=== PATIENT | female | born 1960 | race Caucasian/White ===

== ENCOUNTER 2016-07-13 15:35 | Inpatient (IN) | payer MEDICARE ==
[2016-07-13] MEDS ORDERED: SODIUM CHLORIDE 0.9% 1,000 ML with MVI, ADULT NO.4 WITH VIT K 10 ML, THIAMINE 100 MG, F... IV ONE ×4 (16:40)
[2016-07-13] MEDS ORDERED: ONDANSETRON 4 MG/2 ML VIAL IVP STA (16:40)
[2016-07-13] MEDS ORDERED: LORazepam 2 MG/ML SYRINGE IV STA (16:42)
--- NOTE | 2016-07-13 16:46 | ED ---
Alcohol HPI - General Source: patient, EMS, RN notes reviewed Mode of arrival: EMS Limitations: no limitations <Cherri Ortega - Last Filed: 07/14/16 04:07> <Rangel Henriquez - Last Filed: 07/14/16 07:37> - General Chief Complaint: Alcohol Stated Complaint: ETOH Time Seen by Provider: 07/13/16 16:12 - History of Present Illness Initial Comments: Patient is a 55-year-old female since emergency room for evaluation of alcohol intoxication. Patient states she drank two 40's morning. Patient also states that she was diagnosed with a urinary tract infection on 06/18/16 and was on antibiotics for 10 days. Patient states the symptoms have still not subsided. Patient states she still having pain and burning while urinating with blood in urine. Patient denies any fevers or chills. Patient states she's having lower abdominal pain. Patient also states that she is feeling suicidal. Patient states that her family left her and wants nothing to do with her and that makes her very upset. Patient denies homicidal ideations. Patient denies visual or auditory hallucinations. (Cherri Ortega) - Related Data Home Medications Medication Instructions Recorded Confirmed Cyclobenzaprine [Flexeril] 10 mg PO BID 05/04/16 07/13/16 chlordiazePOXIDE HCl [Librium] 10 mg PO DIRECTED 05/04/16 07/13/16 Previous Rx's Medication Instructions Recorded Albuterol Inhaler [Ventolin Hfa 2 puff INHALATION RT-TID PRN #1 05/09/16 Inhaler] puff Meloxicam [Mobic] 15 mg PO DAILY #30 tablet 05/09/16 PARoxetine [Paxil] 40 mg PO DAILY #60 tab 05/09/16 Pantoprazole [Protonix] 40 mg PO AC-BRKFST #30 tablet. 05/09/16 cloNIDine 0.2 MG/24HR PATCH 1 patch TRANSDERM Q7D #4 patch 05/09/16 [Catapres-TTS] traZODone HCL 100 mg PO DAILY #30 tablet 05/09/16 Sulfamethox-Tmp 800-160Mg [Bactrim 1 tab PO Q12HR 7 Days 07/14/16 DS 800-160 mg] Allergies Allergy/AdvReac Type Severity Reaction Status Date / Time Iodinated Contrast Media - Allergy Unknown Verified 07/13/16 16:34 Oral and [Iodinated Contrast Media - IV Dye] levofloxacin [From Levaquin] Allergy Anaphylaxis Verified 07/13/16 16:34 pregabalin [From Lyrica] Allergy Nausea & Verified 07/13/16 16:34 Vomiting Review of Systems ROS Other: All systems not noted in ROS Statement are negative. <Cherri Ortega - Last Filed: 07/14/16 04:07> ROS Other: All systems not noted in ROS Statement are negative. <Rangel Henriquez - Last Filed: 07/14/16 07:37> ROS Statement: Those systems with pertinent positive or pertinent negative responses have been documented in the HPI. (Cherri Ortega) (Rangel Henriquez) Past Medical History Past Medical History: Heart Failure, COPD, CVA/TIA, Diabetes Mellitus, GERD/ Reflux, GI Bleed, Hypertension, Liver Disease, Myocardial Infarction (SD), Osteoarthritis (OA), Seizure Disorder, Sleep Apnea/CPAP/BIPAP Additional Past Medical History / Comment(s): Past alcohol withdrawal, chronic back pain, neuropathy of the lower extremities, R foot ulcer tx at wound center by Dr. Lubin-pt states is now healed, abddominal wound-tx at wound center, CVA in 2010 with numbness/tingling fingers and R leg weakness, concussion from fall 2010, balance issues, UTIs, SZ history from etoh-yrs ago,. Neuropathy bilat feet Last Myocardial Infarction Date:: 2014 History of Any Multi-Drug Resistant Organisms: None Reported, MRSA Date of last positivie culture/infection: 12/2015 MDRO Source:: right small toe Past Surgical History: Section, Hernia Repair Additional Past Surgical History / Comment(s): Ventral hernia repair x 4, 2 c- sections 1992, 1994, debridements of R foot and abdomin, colonoscopy, laparoscopy, seromas x 2 drained. Past Anesthesia/Blood Transfusion Reactions: No Reported Reaction Past Psychological History: Anxiety, Bipolar, Depression Additional Psychological History / Comment(s): Pt states she has been having suicidal thoughts and a plan that what ever she did would be "quick and easy." She states she currently resides with one other adult who is living with her temporarily. She uses a cane prn. She cannot drive. She uses the [facility] bus. Smoking Status: Current every day smoker Past Alcohol Use History: Abuse, Heavy Additional Past Alcohol Use History / Comment(s): Patient is a smoker of a half a pack to three-quarter pack of cigarettes per day for 13 years. Patient drinks alcohol 15 cans of beer per day for the last 13 years, recently added vodka. Last drank 04/17/16. She denies any street drug use. She denies any marijuana use. Past Drug Use History: None Reported - Past Family History Father Additional Family Medical History / Comment(s): Father is alive at age 75 with no major medical problems. Mother Family Medical History: Cancer Additional Family Medical History / Comment(s): Mother at age 65 from breast cancer/bone. Brother(s) Additional Family Medical History / Comment(s): Patient has 1 brother that from a motor vehicle accident involving alcohol. Patient has no sisters. Patient has 1 son 21 years old and one daughter 23 years old and she has no contact with her children. <Cherri Ortega - Last Filed: 07/14/16 04:07> General Exam Limitations: no limitations General appearance: alert, appears intoxicated Head exam: Present: atraumatic, normocephalic, normal inspection Eye exam: Present: normal appearance ENT exam: Present: normal exam Neck exam: Present: normal inspection, full ROM Respiratory exam: Present: wheezes Cardiovascular Exam: Present: regular rate, normal rhythm, normal heart sounds GI/Abdominal exam: Present: soft, normal bowel sounds. Absent: distended, tenderness, guarding, rebound, rigid Extremities exam: Present: normal inspection Back exam: Present: normal inspection Neurological exam: Present: alert Skin exam: Present: warm, dry <Cherri Ortega - Last Filed: 07/14/16 04:07> Medical Decision Making - Lab Data Result diagrams: 07/13/16 19:52 07/13/16 19:52 <Cherri Ortega - Last Filed: 07/14/16 04:07> - Lab Data Result diagrams: 07/13/16 19:52 07/13/16 19:52 <Rangel Henriquez - Last Filed: 07/14/16 07:37> - Medical Decision Making Patient is a 55-year-old female presents emergency room for a alcohol intoxication, suicidal ideations and dysuria. Patient medically cleared for psych when sober. Will begin treating patient for urinary tract infection. Case discussed and passed on to Dr. Henriquez at 4 AM. (Cherri Ortega) Patient seen by scattered but given her history of previous alcohol withdrawal seizures there requests that she be admitted under medicine for 1 day to ensure that no seizures develop. (Rangel Henriquez) - Lab Data Lab Results 07/13/16 07/13/16 07/14/16 Range/Units 19:52 19:52 01:42 WBC 5.3 (3.8-10.6) k/uL RBC 4.24 (3.80-5.40) m/uL Hgb 14.7 (11.4-16.0) gm/dL Hct 41.3 (34.0-46.0) % MCV 97.5 (80.0-100.0) fL MCH 34.7 (25.0-35.0) pg MCHC 35.5 (31.0-37.0) g/dL RDW 14.2 (11.5-15.5) % Plt Count 162 (150-450) k/uL Neutrophils % 32 % Lymphocytes % 62 % Monocytes % 2 % Eosinophils % 1 % Basophils % 1 % Neutrophils # 1.7 (1.3-7.7) k/uL Lymphocytes # 3.3 (1.0-4.8) k/uL Monocytes # 0.1 (0-1.0) k/uL Eosinophils # 0.1 (0-0.7) k/uL Basophils # 0.0 (0-0.2) k/uL Manual Slide Review Performed Reactive Lymphocytes Present RBC Morphology Normal Sodium 147 H (137-145) mmol/L Potassium 4.2 (3.5-5.1) mmol/L Chloride 111 H (98-107) mmol/L Carbon Dioxide 21 L (22-30) mmol/L Anion Gap 15 mmol/L BUN 16 (7-17) mg/dL Creatinine 0.70 (0.52-1.04) mg/dL Est GFR (MDRD) Af Amer >60 (>60 ml/min/1.73 sqM) Est GFR (MDRD) Non-Af >60 (>60 ml/min/1.73 sqM) Glucose 91 (74-99) mg/dL Calcium 8.5 (8.4-10.2) mg/dL Magnesium 2.1 (1.6-2.3) mg/dL Total Bilirubin 0.6 (0.2-1.3) mg/dL AST 56 H (14-36) U/L ALT 54 H (9-52) U/L Alkaline Phosphatase 59 (38-126) U/L Total Protein 6.9 (6.3-8.2) g/dL Albumin 4.2 (3.5-5.0) g/dL Urine Color Yellow Urine Appearance Turbid H (Clear) Urine pH 5.5 (5.0-8.0) Ur Specific [place] 1.013 (1.001-1.035) Urine Protein 1+ H (Negative) Urine Glucose (UA) Negative (Negative) Urine Ketones Negative (Negative) Urine Blood Small H (Negative) Urine Nitrate Positive H (Negative) Urine Bilirubin Negative (Negative) Urine Urobilinogen <2.0 (<2.0) mg/dL Ur Leukocyte Esterase Large H (Negative) Urine RBC 9 H (0-5) /hpf Urine WBC >182 H (0-5) /hpf Urine WBC Clumps Many H (None) /hpf Ur Squamous Epith Cells 2 (0-4) /hpf Urine Bacteria Many H (None) /hpf Urine Mucus Occasional H (None) /hpf Urine Opiates Screen Not Detected (NotDetected) Ur Oxycodone Screen Not Detected (NotDetected) Urine Methadone Screen Not Detected (NotDetected) Ur Propoxyphene Screen Not Detected (NotDetected) Ur Barbiturates Screen Not Detected (NotDetected) U Tricyclic Antidepress Not Detected (NotDetected) Ur Phencyclidine Scrn Not Detected (NotDetected) Ur Amphetamines Screen Not Detected (NotDetected) U Methamphetamines Scrn Not Detected (NotDetected) U Benzodiazepines Scrn Detected H (NotDetected) Urine Cocaine Screen Not Detected (NotDetected) U Marijuana (THC) Screen Not Detected (NotDetected) Serum Alcohol 295 mg/dL (Rangel Henriquez) Disposition <Cherri Ortega - Last Filed: 07/14/16 04:07> <Rangel Henriquez - Last Filed: 07/14/16 07:37> Clinical Impression: Urinary tract infection, Alcohol intoxication, Alcohol withdrawal, Suicidal ideation Disposition: ADMITTED IP TO THIS HOSP Condition: Poor Instructions: Alcohol Intoxication (ED), Urinary Tract Infection in Women (ED) Prescriptions: Sulfamethox-Tmp 800-160Mg [Bactrim DS 800-160 mg] 1 tab PO Q12HR 7 Days Referrals: Danielle Parra MD [Primary Care Provider] - 1-2 days
[2016-07-13 20:06] LABS: Basophils % (A) 1 %; CH 35.1; CHCM 36.1; Eosinophils # (A) 0.1 k/uL (0-0.7); Eosinophils % (A) 1 %; HCT 41.3 % (34.0-46.0); HDW 2.81; HGB 14.7 gm/dL (11.4-16.0); Luc # (Auto) 0.12; Luc % (Auto) 2; Lymphocytes # (A) 3.3 k/uL (1.0-4.8); Lymphocytes % (A) 62 %; MCH 34.7 pg (25.0-35.0); MCHC 35.5 g/dL (31.0-37.0); MCV 97.5 fL (80.0-100.0); Mean Platelet Volume 6.6; Monocytes # (A) 0.1 k/uL (0-1.0); Monocytes % (A) 2 %; Neutrophils # (A) 1.7 k/uL (1.3-7.7); Neutrophils % (A) 32 %; RBC 4.24 m/uL (3.80-5.40); RDW 14.2 % (11.5-15.5); WBC 5.3 k/uL (3.8-10.6)
[2016-07-13 20:19] LABS: ALT 54 U/L (9-52); AST 56 U/L (14-36); Alkaline Phosphatase 59 U/L (38-126); Anion Gap 15 mmol/L; Blood Urea Nitrogen 16 mg/dL (7-17); Calcium 8.5 mg/dL (8.4-10.2); Carbon Dioxide 21 mmol/L (22-30); Chloride 111 mmol/L (98-107); Glucose 91 mg/dL (74-99); Magnesium 2.1 mg/dL (1.6-2.3); Non-African American GFR(MDRD) >60 (>60 ml/min/1.73 sqM); Potassium 4.2 mmol/L (3.5-5.1); Sodium 147 mmol/L (137-145); Total Bilirubin 0.6 mg/dL (0.2-1.3); Total Protein 6.9 g/dL (6.3-8.2)
[2016-07-13 20:30] LABS: Alcohol 295 mg/dL
[2016-07-13 20:49] LABS: Manual Review Performed
[2016-07-13 20:50] LABS: RBC Morphology Normal
[2016-07-13 20:51] LABS: Reactive Lymphocytes Present
[2016-07-14 01:56] LABS: Appearance,Urine Turbid (Clear); Bacteria,Urine Many /hpf; Bilirubin,Urine Negative (Negative); Glucose,Urine (UA) Negative (Negative); Ketones,Urine Negative (Negative); Leukocyte Esterase,Urine Large (Negative); Mucus,Urine Occasional /hpf; Nitrite,Urine Positive (Negative); PH, Urine 5.5 (5.0-8.0); Particle Count 69608; Protein,Urine 1+ (Negative); RBC,Urine 9 /hpf (0-5); Specific Gravity,Urine 1.013 (1.001-1.035); Squamous Epithelial Cell,Urine 2 /hpf (0-4); UA Billing (MACRO vs. MICRO) MICRO; Urobilinogen,Urine <2.0 mg/dL (<2.0); WBC,Urine >182 /hpf (0-5)
[2016-07-14] MEDS ORDERED: SULFAMETHOX-TMP 800-160MG 1 EACH TAB PO STA (02:22)
[2016-07-14] MEDS ORDERED: LORazepam 2 MG/ML SYRINGE IV STA (06:09)
[2016-07-14] MEDS ORDERED: chlordiazePOXIDE 25 MG CAP PO STA (06:10)
[2016-07-14] MEDS ORDERED: NALOXONE 0.4 MG/ML 1 ML VIAL IV PRN (07:32)
[2016-07-14] MEDS ORDERED: THIAMINE 100 MG/ML 2 ML VIAL IM STA (07:32)
[2016-07-14] MEDS ORDERED: LORazepam 2 MG/ML SYRINGE IV PRN (07:32)
[2016-07-14] MEDS ORDERED: ALBUTEROL NEBULIZED 2.5 MG/3 ML INHALATION PRN (07:36)
[2016-07-14] MEDS ORDERED: cloNIDine 0.2 MG/24HR PATCH 1 PATCH PATCH TRANSDERM SCH (07:45)
[2016-07-14] MEDS: NICOTINE 21MG/24HR PATCH TRANSDERM SCH (09:09)
[2016-07-14] MEDS: SULFAMETHOX-TMP 800-160MG 1 EACH TAB PO SCH ×2 (09:09→20:28)
[2016-07-14] MEDS: HEPARIN SODIUM,PORCINE 5,000 UNIT/ML 1 ML VIAL SQ SCH ×3 (09:10→23:16)
[2016-07-14] MEDS: PANTOPRAZOLE 40 MG TABLET PO SCH (12:43)
[2016-07-14 13:20] LABS: ALT 58 U/L (9-52); AST 54 U/L (14-36); Alkaline Phosphatase 59 U/L (38-126); Anion Gap 10 mmol/L; Blood Urea Nitrogen 15 mg/dL (7-17); Calcium 8.8 mg/dL (8.4-10.2); Carbon Dioxide 24 mmol/L (22-30); Chloride 109 mmol/L (98-107); Glucose 98 mg/dL (74-99); Non-African American GFR(MDRD) >60 (>60 ml/min/1.73 sqM); Potassium 4.3 mmol/L (3.5-5.1); Sodium 143 mmol/L (137-145); Total Bilirubin 0.6 mg/dL (0.2-1.3); Total Protein 6.8 g/dL (6.3-8.2)
--- NOTE | 2016-07-14 13:35 | P.CON ---
Psychiatric Consult - . Consult:: 07/14/16 13:15 Psychiatric consultation notes. Anupama Krystle rodriguez 55-year-old white female was seen while she was on the medical floor admitted for management of alcohol intoxication and withdrawal. Patient was seen on psychiatric evaluation as she had reported feeling depressed. The ER notes indicate that she was diagnosed as having urinary tract infection on 06/18/2016 and was on antibiotics, and patient still complains of burning while urination as well as blood in urine. In the emergency department alcohol level was 295 and hence patient was admitted to medical floor. Psychiatric history. Patient has a very long psychiatric history and in 2016 and alone she was in inpatient treatment for about 7 times, all for the same complaints of intoxication and expressing suicidal ideation. However the prior years have not seen any admission at this facility. Would look into as to whether she had other hospitalization for the same problems elsewhere, when she is able to give me detailed information. Generally within few days of her and her discharge, though compliant with her medications she would resume drinking, reportedly for feeling depressed and missing her children were taken away from her many years ago by their father. Patient has no contact with her her grown children aged 23 and 21 and every time she is admitted is a history of feeling sad that she cannot see them not able to have any contact with them. In the past she had refused to be involved in any rehab programs either outpatient or inpatient and always expresses suicidal ideation with the result she would get admitted to the mental health unit. She initially reports compliance with her psychiatric medications. Her reported current medications are Mental status examination. Patient is an overweight white female confined to bed and was lying down with her eyes closed. No evidence of any psychomotor disturbance including any tremulousness indicative of alcohol withdrawal. Her attention and concentration could be aroused without too much difficulty but could not be sustained for any length of time as she went back to sleep. During the period of her wakeful state she indicated that after leaving the inpatient unit last time she had allowed to people to move in with her, and they are also heavy into alcohol which has not helped the patient any. Patient does not want to ask them to leave her house. Her speech is quite slow so also the thought process. Admits that she is depressed but was vague about any suicidality. On direct inquiry does not seem to be having any delusions or hallucinations at present. Her affect was flat but acknowledged feeling depressed. She was alert enough to recognize that she was in the hospital and recognized me. More of a detailed mental status examination could not be accomplished at this time due to her withdrawn state. Patient seems to have limited insight and judgment. Assessment. Patient has a mood disorder with heavy alcohol abuse and is known to have seizures during the withdrawal phase. Once she is out of the withdrawal phase patient may be considered for transfer to mental health unit, if needed for the management of depression. Since she usually refuses treatment for her alcoholism, and her tendency to resume alcohol abuse once she leaves the hospital there may be really limited benefit for her transfer to mental health unit. Thank you for the referral. 07/14/16 13:34
[2016-07-14] MEDS: LORazepam 2 MG/ML SYRINGE IV PRN ×5 (14:47→23:25)
[2016-07-14] MEDS: THIAMINE 100 MG TAB PO SCH (14:47)
[2016-07-14] MEDS ORDERED: cloNIDine HCL 0.1 MG TAB PO STA (15:58)
[2016-07-14] MEDS ORDERED: cloNIDine 0.3 MG/24HR PATCH 1 PATCH PATCH TRANSDERM SCH (16:00)
[2016-07-14] MEDS: amLODIPine 5 MG TAB PO SCH (16:17)
--- NOTE | 2016-07-14 21:26 | HP ---
DATE OF ADMISSION: 07/14/2016 PRINCIPLE DIAGNOSES: 1. Alcohol intoxication. 2. Suicide ideation. HISTORY OF PRESENT ILLNESS: This is a 55-year-old female patient who presented to the emergency department secondary to burning upon urination and suicide ideation. The patient was found to be severely intoxicated. She states she drank two 40 ounces beer in the morning. She states she is a daily drinker. She denies any other drug ingestion. She does state that she does feel suicidal and sitter has been placed at the bedside for suicide precautions. She is seen lying in bed. She is sleepy, but arousable. She does fall asleep often during my examination. She states she had a urinary tract infection and has been taking antibiotics for 10 days although I do question whether or not she actually has been taking them. She has been placed on oral antibiotic therapy and admitted to the hospital for further evaluation. Culture and susceptibility is in progress. She still is somewhat intoxicated, but she is hemodynamically stable. Psychiatry has been consulted. She may require transfer to the psychiatric unit once she is more awake and alert. REVIEW OF SYSTEMS: Patient denies seizures, syncope, or loss of consciousness. Denies diplopia vision and visual disturbances. Denies dysphagia. Denies shortness breath, cough or wheeze. Denies chest pain, angina, palpitations. Denies abdominal pain. States burning with urination. Denies nausea, vomiting, constipation, or diarrhea. Denies dysuria or urinary retention. Denies fever or chills. PAST MEDICAL HISTORY: COPD, TIA, diabetes. GI bleed, hypertension, liver disease myocardial infarction, osteoarthritis seizure disorder, sleep apnea, alcohol abuse, chronic lower back pain. Anxiety and bipolar depression. PAST SURGICAL HISTORY: Ventral hernia repair x4 with debridement, right foot ulcer debridement. Colonoscopy. SOCIAL HISTORY: The patient is a current every day smoker. She smokes approximately 20 cigarettes per day. States she is daily alcohol user of approximately two 40 ounces beers daily. She denies any illicit drug use. FAMILY HISTORY: Father is still living, no major medical problems. Mother from cancer at age 65, breast cancer. She has one brother that is from motor vehicle accident. The patient has no sisters. She has one son and one daughter that she has no contact with. Their medical status is unknown. ALLERGIES: CONTRAST DYE, LEVAQUIN AND LYRICA. HOME MEDICATIONS: 1. Trazodone 100 mg daily. 2. Librium 10 mg t.i.d. 3. Bactrim DS q.12 hours. 4. Paxil 30 mg daily. 5. Lopressor 25 mg b.i.d. PHYSICAL EXAMINATION: VITAL SIGNS: Temperature is 97.7, heart rate 74, respiratory rate 16, blood pressure 141/81. Pulse oximetry is 97% on room air. GENERAL: The patient is seen lying in bed in no acute distress. HEENT: Head is normocephalic. Atraumatic. Pupils equal, conjunctivae clear. NECK: Supple, no JVD. LUNGS: Clear to auscultation, diminished posteriorly at the bases. No wheeze, rales, rhonchi appreciated. HEART: Regular rate and rhythm with distant heart sounds. ABDOMEN: Obese, nontender, nondistended with deep mid abdominal scar. No evidence of infection. No open areas noted. Liver is not palpable. EXTREMITIES: No lower extremity edema is noted. NEURO: Patient is alert and oriented, sleepy, but arousable. No tremors noted. LABS: Sodium is 147, potassium 4.2, BUN is 16, creatinine 0.7. WBC count is 5.3, hemoglobin 14.7, platelet count is 162. Urinalysis shows turbid yellow urine with positive nitrates, large leukocytes and many bacteria. Urine toxicology screen is positive for benzodiazepines. IMPRESSION: 1. Alcohol intoxication, continue with ETOH protocol as needed for delirium tremens. The patient is an everyday alcohol abuser and may ( ) very quickly. Continue with multivitamin and vitamin D1. 2. Urinary tract infection. Continue with Bactrim DS p.o. b.i.d. we will await final culture results. Patient does have history of Methicillin-resistant Staph aureus and she is in isolation. 3. Hypertension. Continue with Catapres patch. 4. Tobacco abuse. Continue with nicotine patch. 5. Chronic obstructive pulmonary disease may have updraft treated treatments as needed. 6. Suicide ideation. The patient does not have a plan or source that she admits to. She states that she has attempted suicide in the past and has had admissions to psychiatric unit. Will consult psychiatry for an evaluation and possible need for inpatient treatment. 7. Gastrointestinal prophylaxis with Protonix. 8. Deep venous thrombosis prophylaxis with subcutaneous heparin. I performed a history and physical examination of this patient and discussed the same with the dictator. I agree with the dictator's note. Any additional findings/opinions, etc. will be noted.
[2016-07-15] MEDS: LORazepam 2 MG/ML SYRINGE IV PRN (06:02)
[2016-07-15] MEDS: amLODIPine 5 MG TAB PO SCH (09:33)
[2016-07-15] MEDS: SULFAMETHOX-TMP 800-160MG 1 EACH TAB PO SCH (09:33)
[2016-07-15] MEDS: HEPARIN SODIUM,PORCINE 5,000 UNIT/ML 1 ML VIAL SQ SCH ×2 (09:33→15:33)
[2016-07-15] MEDS: PANTOPRAZOLE 40 MG TABLET PO SCH (09:34)
[2016-07-15] MEDS: NICOTINE 21MG/24HR PATCH TRANSDERM SCH (09:34)
[2016-07-15 09:45] LABS: Basophils % (A) 0 %; CHCM 35.9; Eosinophils % (A) 2 %; HCT 37.5 % (34.0-46.0); Luc # (Auto) 0.03; Luc % (Auto) 1; Lymphocytes # (A) 1.3 k/uL (1.0-4.8); Lymphocytes % (A) 55 %; MCH 34.1 pg (25.0-35.0); MCHC 34.8 g/dL (31.0-37.0); MCV 97.9 fL (80.0-100.0); Mean Platelet Volume 7.1; Monocytes # (A) 0.1 k/uL (0-1.0); Monocytes % (A) 4 %; Neutrophils # (A) 0.9 k/uL (1.3-7.7); Neutrophils % (A) 38 %; RBC 3.83 m/uL (3.80-5.40); RDW 13.9 % (11.5-15.5); WBC 2.4 k/uL (3.8-10.6); WBC (Perox) 2.46
[2016-07-15 09:48] LABS: Anion Gap 9 mmol/L; Blood Urea Nitrogen 7 mg/dL (7-17); Calcium 8.8 mg/dL (8.4-10.2); Carbon Dioxide 25 mmol/L (22-30); Chloride 106 mmol/L (98-107); Glucose 113 mg/dL (74-99); Non-African American GFR(MDRD) >60 (>60 ml/min/1.73 sqM); Potassium 3.7 mmol/L (3.5-5.1); Sodium 140 mmol/L (137-145)
[2016-07-15] MEDS: THIAMINE 100 MG TAB PO SCH (12:33)
--- NOTE | 2016-07-15 15:24 | P.DS ---
Providers Date of admission: 07/14/16 07:33 Expected date of discharge: 07/15/16 Attending physician: Colby Balbuena Primary care physician: Danielle Parra [facility] Course: This is a 55-year-old female. She is a patient of Dr. Parra with known history of chronic alcoholism alcohol dependency, COPD and has been treated in the past for chronic back pain, She has had multiple admissions to the mental health unit for depression and suicidal ideation due to alcohol abuse. Patient states that she started drinking alcohol and smoking 14 years ago when her children were taken away from her by her ex-. She has had multiple mental health admissions and states she started drinking heavily again 80 oz of beer every day along with a pint of vodka every day. She was also feeling suicidal and a sitter was placed at the bedside. She also gives history of urinary tract infection and has been on antibiotics for 10 days. She was admitted to the [facility] floor and stabilized. She was seen in consultation by psychiatry and patient is being considered for transfer to mental health unit. Patient has been started on Librium 10 mg 3 times daily. She is medically cleared for discharge to the mental health unit today in stable condition. Discharge diagnoses: 1. Alcohol intoxication with chronic alcoholism. Continue scheduled Librium 10 mg 3 times daily. 2. Chronic refractory Depression recurrent reports of current suicidal ideation. Patient has been seen by psychiatry with possible transfer to mental health unit. Continue sitter at the bedside. 3 Chronic tobacco use and COPD without any exacerbation continue albuterol. 4. Alcohol induced gastropathy. Continue Protonix 40 mg daily. Impression and plan of care have been directed as dictated by the signing physician. Ivette Morales nurse practitioner acting as scribe for signing physician. Patient Condition at Discharge: Stable Plan - Discharge Summary Discharge Medication List chlordiazePOXIDE HCl [Librium] 10 mg PO TID 05/04/16 [History] traZODone HCL 100 mg PO DAILY #30 tablet 05/09/16 [Rx] Metoprolol Tartrate [Lopressor] 25 mg PO BID 07/14/16 [History] PARoxetine HCL [Paxil] 30 mg PO DAILY 07/14/16 [History] Albuterol Nebulized [Ventolin Nebulized] 2.5 mg INHALATION RT-TID PRN #0 nebu [Rx] Nicotine 21Mg/24Hr Patch [Habitrol] 1 patch TRANSDERM DAILY patch 07/15/16 [Rx] Pantoprazole [Protonix] 40 mg PO AC-BRKFST tablet. 07/15/16 [Rx] Sulfamethox-Tmp 800-160Mg [Bactrim DS 800-160 mg] 1 tab PO Q12HR 3 Days [Rx] amLODIPine [Norvasc] 5 mg PO DAILY tab 07/15/16 [Rx] cloNIDine 0.3 MG/24HR PATCH [Catapres-TTS] 1 patch TRANSDERM Q7D patch [Rx] Follow up Appointment(s)/Referral(s): Danielle Parra MD [Primary Care Provider] - 1-2 days Patient Instructions/Handouts: Urinary Tract Infection in Women (ED), Abuse of Alcohol (DC) Activity/Diet/Wound Care/Special Instructions: No alcohol consuption. Discharge Disposition: TRANSFER TO PSYCH HOSP/UNIT
[2016-07-15 15:30] VITALS: BP 151/85; PULSE 88; RESP 20; TEMP 99
== END 2016-07-15 15:55 | DRG 897 ==
LOC: EC 15:35 → 4MS4W 07-14 07:33
PROVIDERS: ADMIT Internal Medicine; ATTEND Internal Medicine
DX: F10.229 Alcohol dependence with intoxication, unspecified (principal); R45.851 Suicidal ideations; N39.0 Urinary tract infection, site not specified; E11.40 Type 2 diabetes mellitus with diabetic neuropathy, unspecified; I50.9 Heart failure, unspecified; I10 Essential (primary) hypertension; E66.3 Overweight; F17.200 Nicotine dependence, unspecified, uncomplicated; G40.909 Epilepsy, unspecified, not intractable, without status epilepticus; G47.30 Sleep apnea, unspecified; I25.2 Old myocardial infarction; J44.9 Chronic obstructive pulmonary disease, unspecified; K21.9 Gastro-esophageal reflux disease without esophagitis; K31.9 Disease of stomach and duodenum, unspecified; M19.90 Unspecified osteoarthritis, unspecified site; F41.9 Anxiety disorder, unspecified; G89.29 Other chronic pain; K76.9 Liver disease, unspecified; M54.5 Low back pain; F32.9 Major depressive disorder, single episode, unspecified; Z86.14 Personal history of Methicillin resistant Staphylococcus aureus infection; Z79.899 Other long term (current) drug therapy; Z88.8 Allergy status to other drugs, medicaments and biological substances; Z88.1 Allergy status to other antibiotic agents; Z91.041 Radiographic dye allergy status; Z91.5 Personal history of self-harm; Y90.8 Blood alcohol level of 240 mg/100 ml or more
CPT/HCPCS: 36415; 80048; 80053; 80306; 80320; 81001; 82075; 83735; 85025; 96365; 96366; 96375; 96376; 99285

== ENCOUNTER 2017-02-12 22:35 | Inpatient (IN) | payer MEDICARE ==
[2017-02-12] MEDS ORDERED: LORazepam 1 MG TAB PO STA (22:57)
[2017-02-12] MEDS ORDERED: LORazepam 2 MG/ML SYRINGE IM STA (23:54)
--- NOTE | 2017-02-13 08:48 | ED ---
General Adult HPI - General Chief complaint: Psychiatric Symptoms Stated complaint: petition Time Seen by Provider: 02/12/17 22:44 Source: patient, RN notes reviewed Mode of arrival: wheelchair Limitations: no limitations - History of Present Illness Initial comments: Patient was seen last night by Dr. Brody however no was not done and will be completed by myself at this time. Patient is a pleasant 56-year-old female presenting to the emergency department with depression and suicidal thoughts. recently lost family member on the . Patient has been more depressed since that time. Patient did have a gun with thoughts of harming herself. No homicidal thoughts. No hallucinations. Patient does drink alcohol frequently and states she has had hallucinations in the past with withdrawals. No physical complaints other than mild edema which is chronic for her. Patient states she's been off her medications. No street drug use. - Related Data Home Medications Medication Instructions Recorded Confirmed Metoprolol Tartrate [Lopressor] 25 mg PO BID 07/14/16 02/13/17 PARoxetine HCL [Paxil] 30 mg PO DAILY 07/14/16 02/13/17 traZODone HCL 100 mg PO HS 02/13/17 02/13/17 Allergies Allergy/AdvReac Type Severity Reaction Status Date / Time Iodinated Contrast- Oral and Allergy Unknown Verified 02/12/17 22:40 IV Dye [Iodinated Contrast Media - IV Dye] levofloxacin [From Levaquin] Allergy Anaphylaxis Verified 02/12/17 22:40 pregabalin [From Lyrica] Allergy Nausea & Verified 02/12/17 22:40 Vomiting Review of Systems ROS Statement: Those systems with pertinent positive or pertinent negative responses have been documented in the HPI. ROS Other: All systems not noted in ROS Statement are negative. Constitutional: Denies: fever Eyes: Denies: eye pain ENT: Denies: ear pain Respiratory: Denies: cough, dyspnea Cardiovascular: Reports: edema (Chronic). Denies: chest pain Endocrine: Denies: fatigue Gastrointestinal: Denies: abdominal pain Genitourinary: Denies: dysuria Musculoskeletal: Denies: back pain Skin: Denies: rash Neurological: Denies: weakness Psychiatric: Reports: depression, suicidal thoughts Past Medical History Past Medical History: Heart Failure, COPD, CVA/TIA, Diabetes Mellitus, GERD/ Reflux, GI Bleed, Hypertension, Liver Disease, Myocardial Infarction ([place]), Osteoarthritis (OA), Seizure Disorder, Sleep Apnea/CPAP/BIPAP Additional Past Medical History / Comment(s): Past alcohol withdrawal, chronic back pain, neuropathy of the lower extremities, R foot ulcer tx at wound center by Dr. Lubin-pt states is now healed, abddominal wound-tx at wound center, CVA in 2010 with numbness/tingling fingers and R leg weakness, concussion from fall 2010, balance issues, UTIs, SZ history from etoh-yrs ago,. Neuropathy bilat feet Last Myocardial Infarction Date:: 2014 History of Any Multi-Drug Resistant Organisms: None Reported Date of last positivie culture/infection: None MDRO Source:: None Past Surgical History: Section, Hernia Repair Additional Past Surgical History / Comment(s): Ventral hernia repair x 4, 2 c- sections 1992, 1994, debridements of R foot and abdomin, colonoscopy, laparoscopy, seromas x 2 drained. Past Anesthesia/Blood Transfusion Reactions: No Reported Reaction Past Psychological History: Anxiety, Bipolar, Depression Smoking Status: Current every day smoker Past Alcohol Use History: Abuse, Heavy Past Drug Use History: None Reported - Past Family History Father Additional Family Medical History / Comment(s): Father is alive at age 75 with no major medical problems. Mother Family Medical History: Cancer Additional Family Medical History / Comment(s): Mother at age 65 from breast cancer/bone. Brother(s) Additional Family Medical History / Comment(s): Patient has 1 brother that from a motor vehicle accident involving alcohol. Patient has no sisters. Patient has 1 son 21 years old and one daughter 23 years old and she has no contact with her children. General Exam Limitations: no limitations General appearance: alert, in no apparent distress Head exam: Present: atraumatic Eye exam: Present: normal appearance, PERRL ENT exam: Present: normal oropharynx Neck exam: Present: normal inspection Respiratory exam: Present: normal lung sounds bilaterally Cardiovascular Exam: Present: regular rate, normal rhythm GI/Abdominal exam: Present: soft. Absent: tenderness Extremities exam: Present: normal inspection. Absent: pedal edema, calf tenderness Neurological exam: Present: alert Psychiatric exam: Present: normal affect, normal mood Skin exam: Present: normal color Course Vital Signs 02/12/17 02/13/17 02/13/17 22:37 04:00 06:34 Temperature 99.7 F H Pulse Rate 81 66 Respiratory 20 16 16 Rate Blood Pressure 147/78 116/59 O2 Sat by Pulse 94 L 95 Oximetry Medical Decision Making - Medical Decision Making Patient was seen by mental health services, who will admit. Disposition Clinical Impression: Depression Disposition: TRANSFER TO PSYCH HOSP/UNIT Referrals: Danielle Parra MD [Primary Care Provider] - 1-2 days
[2017-02-13] MEDS ORDERED: ONDANSETRON ODT 4 MG TAB PO STA (09:52)
[2017-02-13] MEDS ORDERED: MAGNESIUM HYDROXIDE 2,400 MG/10 ML CUP PO PRN (10:24)
[2017-02-13] MEDS ORDERED: ZIPRASIDONE 20 MG VIAL IM PRN (10:24)
[2017-02-13] MEDS ORDERED: LORazepam 1 MG TAB PO PRN (10:24)
[2017-02-13] MEDS ORDERED: MAG HYDROX/AL HYDROX/SIMETH 30 ML CUP PO PRN (10:24)
[2017-02-13] MEDS ORDERED: ALBUTEROL INHALER 60 PUFF/8 GM INHALER INHALATION PRN (11:22)
[2017-02-13] MEDS ORDERED: LORazepam 1 MG TAB PO STA (11:22)
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
[2017-02-13 11:39] VITALS: BMI 34.5
[2017-02-13] MEDS: PARoxetine 10 MG TAB PO SCH (11:39)
[2017-02-13] MEDS: METOPROLOL TARTRATE 25 MG TAB PO SCH ×2 (11:40→20:47)
[2017-02-13] MEDS: NICOTINE 14MG/24HR PATCH TRANSDERM SCH ×2 (11:42→11:46)
[2017-02-13] MEDS ORDERED: cloNIDine HCL 0.1 MG TAB PO STA (14:20)
[2017-02-13] MEDS: LORazepam 1 MG TAB PO PRN ×3 (14:50→20:53)
[2017-02-13] MEDS: traZODone HCL 100 MG TAB PO SCH (20:47)
[2017-02-14 01:48] LABS: Appearance,Urine Turbid (Clear); Bacteria,Urine Occasional /hpf; Bilirubin,Urine Negative (Negative); Glucose,Urine (UA) 2+ (Negative); Ketones,Urine Negative (Negative); Leukocyte Esterase,Urine Large (Negative); Mucus,Urine Rare /hpf; Nitrite,Urine Negative (Negative); PH, Urine 6.5 (5.0-8.0); Particle Count 89898; Protein,Urine 1+ (Negative); RBC,Urine 3 /hpf (0-5); Specific Gravity,Urine 1.014 (1.001-1.035); Squamous Epithelial Cell,Urine 92 /hpf (0-4); UA Billing (MACRO vs. MICRO) MICRO; Urobilinogen,Urine <2.0 mg/dL (<2.0); WBC,Urine 38 /hpf (0-5)
[2017-02-14] MEDS: LORazepam 1 MG TAB PO PRN ×4 (06:48→17:54)
[2017-02-14] MEDS: METOPROLOL TARTRATE 25 MG TAB PO SCH ×2 (06:48→21:07)
[2017-02-14] MEDS: NICOTINE 14MG/24HR PATCH TRANSDERM SCH (09:16)
[2017-02-14] MEDS: cloNIDine HCL 0.1 MG TAB PO SCH ×2 (09:16→21:07)
[2017-02-14] MEDS: PARoxetine 10 MG TAB PO SCH (09:16)
[2017-02-14 09:24] LABS: Basophils % (A) 0 %; CH 33.3; CHCM 36.2; Eosinophils # (A) 0.1 k/uL (0-0.7); Eosinophils % (A) 2 %; HCT 41.8 % (34.0-46.0); HGB 14.6 gm/dL (11.4-16.0); Luc # (Auto) 0.05; Luc % (Auto) 1; Lymphocytes # (A) 1.5 k/uL (1.0-4.8); Lymphocytes % (A) 35 %; MCH 32.2 pg (25.0-35.0); MCV 92.2 fL (80.0-100.0); Monocytes # (A) 0.2 k/uL (0-1.0); Monocytes % (A) 5 %; Neutrophils # (A) 2.4 k/uL (1.3-7.7); Neutrophils % (A) 57 %; RBC 4.54 m/uL (3.80-5.40); RDW 14.4 % (11.5-15.5); WBC 4.3 k/uL (3.8-10.6); WBC (Perox) 4.15
[2017-02-14 09:57] LABS: ALT 30 U/L (9-52); AST 24 U/L (14-36); Alkaline Phosphatase 75 U/L (38-126); Anion Gap 9 mmol/L; Bilirubin, Delta 0.3 mg/dL (0.0-0.2); Blood Urea Nitrogen 9 mg/dL (7-17); Calcium 8.8 mg/dL (8.4-10.2); Carbon Dioxide 27 mmol/L (22-30); Chloride 100 mmol/L (98-107); Glucose 187 mg/dL (74-99); Non-African American GFR(MDRD) >60 (>60 ml/min/1.73 sqM); Potassium 3.9 mmol/L (3.5-5.1); Sodium 136 mmol/L (137-145); Total Bilirubin 1.2 mg/dL (0.2-1.3); Total Protein 6.4 g/dL (6.3-8.2)
--- NOTE | 2017-02-14 10:47 | P.PN ---
Progress Note - Text Interval History: Patient is a 56-year-old female who was seen today in coverage for Dr. Shen and patient was in her room reporting that she is not feeling well, patient reported being able to eat some of her breakfast and did not report any nausea or vomiting. She continues to feel shaky and unsteady on her feet and is having sweats at times and was feeling nauseated yesterday and unable to eat. Patient reports that she is unable to state how she is doing otherwise as her physical symptoms are most problematic for her at this time. Patient has not been able to attend groups she states due to how she is feeling physically Mental Status: Appearance/Attitude: Patient is a hospital gown, lying in her bed and is feeling shaky and unsteady on her feet, she is cooperative in the interview continued in her room. Behavior: Patient exhibits no psychomotor agitation or retardation but is complaining of shaking and unsteady on her feet. Speech/Language: Patient's speech is spontaneous and of normal volume and rhythm and she is coherent. Thought Process: Patient is goal-directed and no evidence of circumstantial or tangential thought and no loose associations or flight of ideas. Thought Content: Patient is not reporting any auditory or visual hallucinations no delusions or paranoid ideation were elicited. Patient states she is just not feeling physically well, was able to eat a little bit of her breakfast this morning but stated yesterday she was too nauseated to eat. Patient states that she is feeling shaky and unsteady on her feet and so has remained in bed most of the time. Patient states that she has had the sweats and her sleep is intermittent. Suicidal/Homicidal Ideation: Patient denies any current suicidal or homicidal ideation Sensorium/Cognition: Patient was easily awakened and was alert and oriented to person, place and situation and her memory was not formally tested. Mood/Affect: Patient's mood remains depressed and her affect blunted. Insight/Judgement: Patient's insight and judgment are poor. Assessment: Patient continues with alcohol withdrawal, receiving Ativan as needed based on her CIWA score and her blood pressure was elevated this morning even though she is receiving metipranolol. Patient is reporting that she was able to eat something this morning with less nausea and remains in her bed due to feeling shaky and unsteady on her feet. Patient was not participating in groups or activities due to her physical complaints. Plan: Patient will continue on her current medication of Paxil 30 mg a day and trazodone 100 mg at bedtime to target her depression and sleep. She will remain on Ativan given on an as-needed basis based on her CIWA score. Patient was also ordered clonidine 0.1 mg twice a day as her blood pressure remained elevated this morning even though the patient is also on Lopressor. A urine culture was ordered to rule out urinary tract infection. patient continues to require hospitalization to stabilize her mood and continue to monitor her withdrawal from alcohol.
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
[2017-02-14] MEDS: traZODone HCL 100 MG TAB PO SCH (21:07)
[2017-02-15] MEDS: LORazepam 1 MG TAB PO PRN ×3 (01:37→14:02)
[2017-02-15] MEDS: NICOTINE 14MG/24HR PATCH TRANSDERM SCH (08:41)
[2017-02-15] MEDS: PARoxetine 10 MG TAB PO SCH (08:41)
[2017-02-15] MEDS: METOPROLOL TARTRATE 25 MG TAB PO SCH ×2 (08:41→20:19)
[2017-02-15] MEDS: cloNIDine HCL 0.1 MG TAB PO SCH ×2 (08:41→20:19)
--- NOTE | 2017-02-15 09:55 | P.PN ---
Progress Note - Text Interval History: Patient is a 56-year-old female was being seen in coverage for Dr. Shen, patient continues to require Ativan for alcohol withdrawal and she reports continuing to not physically feel well with nausea, decreased appetite and feeling unsteady on her feet. Patient states that she continues to feel shaky and states that she had some visual hallucinations last evening but reported none currently. Patient states that she is feeling better today than yesterday. Mental Status: Appearance/Attitude: Patient was seen in her room, she was lying in bed and dressed in a hospital gown and was not perspiring and was cooperative. Behavior: Patient did not display any psychomotor retardation but reports continuing to feel shaky and unsteady on her feet. Speech/Language: Speech was spontaneous and of normal volume and rhythm Thought Process: Patient was goal-directed but gave brief answers. Thought Content: Patient denied any auditory hallucinations stated she had some vivid visual hallucinations last evening but none currently and states that she is not having any delusional or paranoid ideation. Patient reports she continues to have nausea, not eating as well but she is not sweating as much she reported and states that she continues to feel unsteady on her feet. Suicidal/Homicidal Ideation: Patient denies any current suicidal or homicidal ideation Sensorium/Cognition: Patient is alert, oriented to person and place. Mood/Affect: Patient's mood remains anxious, depressed and her affect is appropriate to mood. Insight/Judgement: Patient's insight and judgment are poor. Assessment: Patient continues to require Ativan for alcohol withdrawal and continues to report nausea, visual hallucinations last evening, poor appetite and continuing to feel tremulous and unsteady on her feet. Patient has remained in bed and not attending groups due to not physically feeling well enough to do so. Patient's blood pressure is better controlled. Plan: Patient will continue on her current medications of Paxil and trazodone with no change in dosage at this time. Patient will continue to receive Ativan as necessary for alcohol withdrawal symptoms. Patient's blood pressure is better controlled with the addition of clonidine. Patient was encouraged as her physical condition improves to attend and participate in groups. Patient continues to require hospitalization due to her alcohol withdrawal and to stabilize her mood.
[2017-02-15] MEDS: traZODone HCL 100 MG TAB PO SCH (20:19)
[2017-02-16] MEDS: LORazepam 1 MG TAB PO PRN ×2 (01:30→12:40)
[2017-02-16] MEDS: PARoxetine 10 MG TAB PO SCH (08:35)
[2017-02-16] MEDS: METOPROLOL TARTRATE 25 MG TAB PO SCH ×2 (08:35→21:25)
[2017-02-16] MEDS: cloNIDine HCL 0.1 MG TAB PO SCH ×2 (08:35→21:26)
[2017-02-16] MEDS: ACETAMINOPHEN TAB 325 MG TAB PO PRN (17:06)
[2017-02-16] MEDS: traZODone HCL 100 MG TAB PO SCH (21:25)
[2017-02-17] MEDS: cloNIDine HCL 0.1 MG TAB PO SCH ×2 (06:51→21:57)
[2017-02-17] MEDS: METOPROLOL TARTRATE 25 MG TAB PO SCH ×2 (06:51→21:58)
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
[2017-02-17] MEDS: PARoxetine 10 MG TAB PO SCH (10:47)
[2017-02-17] MEDS: LORazepam 1 MG TAB PO PRN ×2 (10:50→20:09)
[2017-02-17] MEDS: ACETAMINOPHEN TAB 325 MG TAB PO PRN (10:57)
[2017-02-17] MEDS: traZODone HCL 100 MG TAB PO SCH (21:57)
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
[2017-02-18] MEDS: cloNIDine HCL 0.1 MG TAB PO SCH ×2 (09:02→22:03)
[2017-02-18] MEDS: METOPROLOL TARTRATE 25 MG TAB PO SCH ×2 (09:02→22:02)
[2017-02-18] MEDS: PARoxetine 10 MG TAB PO SCH (09:02)
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
[2017-02-18] MEDS: LORazepam 1 MG TAB PO PRN (20:14)
[2017-02-18] MEDS: traZODone HCL 100 MG TAB PO SCH (22:02)
[2017-02-19 06:49] VITALS: RESP 18; TEMP 97.9
[2017-02-19] MEDS: cloNIDine HCL 0.1 MG TAB PO SCH (09:28)
[2017-02-19] MEDS: METOPROLOL TARTRATE 25 MG TAB PO SCH (09:28)
[2017-02-19] MEDS: PARoxetine 10 MG TAB PO SCH (09:28)
[2017-02-19] MEDS: LORazepam 1 MG TAB PO PRN (09:30)
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
[2017-02-19 10:32] VITALS: BP 132/76; PULSE 67
== END 2017-02-19 14:52 | disposition left against medical advice (07) | DRG 894 ==
LOC: EC 22:35 → 3MHU 02-13 10:09
PROVIDERS: ADMIT Psychiatry & Neurology Addiction Medicine; ATTEND Psychiatry & Neurology Addiction Medicine
PROC: HZ2ZZZZ Detoxification Services for Substance Abuse Treatment (ICD-10-PCS; principal; 2017-02-13)
DX: F10.229 Alcohol dependence with intoxication, unspecified (principal); R45.851 Suicidal ideations; E11.42 Type 2 diabetes mellitus with diabetic polyneuropathy; F33.9 Major depressive disorder, recurrent, unspecified; I69.351 Hemiplegia and hemiparesis following cerebral infarction affecting right dominant side; F10.239 Alcohol dependence with withdrawal, unspecified; I10 Essential (primary) hypertension; F41.9 Anxiety disorder, unspecified; M54.9 Dorsalgia, unspecified; I69.398 Other sequelae of cerebral infarction; R20.8 Other disturbances of skin sensation; M19.90 Unspecified osteoarthritis, unspecified site; G47.30 Sleep apnea, unspecified; K31.9 Disease of stomach and duodenum, unspecified; E66.9 Obesity, unspecified; G47.00 Insomnia, unspecified; J44.9 Chronic obstructive pulmonary disease, unspecified; G89.29 Other chronic pain; K21.9 Gastro-esophageal reflux disease without esophagitis; I25.2 Old myocardial infarction; F17.200 Nicotine dependence, unspecified, uncomplicated; Z80.3 Family history of malignant neoplasm of breast; Z79.899 Other long term (current) drug therapy; Z88.8 Allergy status to other drugs, medicaments and biological substances; Z91.5 Personal history of self-harm; Z88.1 Allergy status to other antibiotic agents; Z63.5 Disruption of family by separation and divorce; Z63.79 Other stressful life events affecting family and household; Z71.41 Alcohol abuse counseling and surveillance of alcoholic; Z71.51 Drug abuse counseling and surveillance of drug abuser; Z53.21 Procedure and treatment not carried out due to patient leaving prior to being seen by health care provider; Z91.041 Radiographic dye allergy status; Z56.0 Unemployment, unspecified; Z63.8 Other specified problems related to primary support group; Z62.820 Parent-biological child conflict; Z86.79 Personal history of other diseases of the circulatory system; Z87.820 Personal history of traumatic brain injury; Z91.81 History of falling; Z87.440 Personal history of urinary (tract) infections; Z86.69 Personal history of other diseases of the nervous system and sense organs; Z87.19 Personal history of other diseases of the digestive system; Z86.19 Personal history of other infectious and parasitic diseases
CPT/HCPCS: 80053; 80306; 81001; 82075; 82248; 84443; 85025; 87086; 93005

== ENCOUNTER → 2017-09-07 | Outpatient (CLI) | payer MEDICARE ==
--- NOTE | 2017-09-09 10:56 | MM ---
Reason for exam: screening (asymptomatic). Last mammogram was performed 3 years and 7 months ago. History: Patient is postmenopausal and had first child at age 33. Family history of breast cancer in mother at age 55. Cyst aspiration of the left breast, 2011. Physical Findings: A clinical breast exam by your physician is recommended on an annual basis and results should be correlated with mammographic findings. MG 3D Screening Mammo W/Cad Bilateral CC and MLO view(s) were taken. Prior study comparison: January 25, 2014, bilateral MG screening mammo w CAD. There are scattered fibroglandular densities. Benign oil cyst anterior lower inner quadrant left breast. No significant changes when compared with prior studies. ASSESSMENT: Negative, BI-RAD 1 RECOMMENDATION: Routine screening mammogram of both breasts in 1 year.
== END | disposition home or self-care (01) ==
LOC: RADMAMWWP 10:12
PROVIDERS: ATTEND Family Medicine
DX: Z12.31 Encounter for screening mammogram for malignant neoplasm of breast (principal)
CPT/HCPCS: 77063; 77067

== ENCOUNTER 2017-09-11 20:07 | Emergency (ER) | payer MEDICARE ==
--- NOTE | 2017-09-11 21:26 | ED ---
General Adult HPI - General Source: patient, RN/MD, EMS, RN notes reviewed Mode of arrival: EMS Limitations: no limitations <Mera Dias - Last Filed: 09/11/17 21:19> <Angel Zaragoza - Last Filed: 09/12/17 06:19> <Angel Diaz - Last Filed: 09/12/17 08:51> - General Chief complaint: Back Pain/Injury Stated complaint: Back Pain Time Seen by Provider: 09/11/17 20:08 - History of Present Illness Initial comments: This is a 56-year-old female who presents to the emergency department with chief complaint of acute on chronic back pain. On presentation to the emergency department, patient is noted to be severely intoxicated and slurring her words. She is found to have a blood alcohol content of 0.282. Patient also admits to being suicidal. Patient states that she broke her back in 2017. She states that she drank alcohol this afternoon because it helps with the pain. She denies homicidal ideation. She states that she does talk to people who were not present that help "guide her." Denies visual hallucinations. Patient states that she has had 2 MIs in the past. Denies any chest pain or shortness of breath. No other complaints. (Mera Dias) - Related Data Previous Rx's Medication Instructions Recorded Albuterol Inhaler [Ventolin Hfa 2 puff INHALATION RT-Q6H PRN #1 02/19/17 Inhaler] Metoprolol Tartrate [Lopressor] 25 mg PO BID #60 02/19/17 PARoxetine HCL [Paxil] 30 mg PO DAILY #30 02/19/17 cloNIDine HCL [Catapres] 0.1 mg PO BID #60 tab 02/19/17 traZODone HCL [Desyrel] 100 mg PO HS #30 tab 02/19/17 Allergies Allergy/AdvReac Type Severity Reaction Status Date / Time Iodinated Contrast- Oral and Allergy Unknown Verified 09/11/17 20:42 IV Dye [Iodinated Contrast Media - IV Dye] levofloxacin [From Levaquin] Allergy Anaphylaxis Verified 09/11/17 20:42 pregabalin [From Lyrica] Allergy Nausea & Verified 09/11/17 20:42 Vomiting Review of Systems ROS Other: All systems not noted in ROS Statement are negative. <LarissaMera - Last Filed: 09/11/17 21:19> ROS Other: All systems not noted in ROS Statement are negative. <Roger Zaragozaophe - Last Filed: 09/12/17 06:19> ROS Other: All systems not noted in ROS Statement are negative. <AugustoaltaAngel Laura - Last Filed: 09/12/17 08:51> ROS Statement: Those systems with pertinent positive or pertinent negative responses have been documented in the HPI. Past Medical History Past Medical History: Heart Failure, COPD, CVA/TIA, Diabetes Mellitus, GERD/ Reflux, GI Bleed, Hypertension, Liver Disease, Myocardial Infarction (IL), Osteoarthritis (OA), Seizure Disorder, Sleep Apnea/CPAP/BIPAP Additional Past Medical History / Comment(s): Past alcohol withdrawal, chronic back pain, neuropathy of the lower extremities, R foot ulcer tx at wound center by Dr. Lubin-pt states is now healed, abddominal wound-tx at wound center, CVA in 2010 with numbness/tingling fingers and R leg weakness, concussion from fall 2010, balance issues, UTIs, SZ history from etoh-yrs ago,. Neuropathy bilat feet Last Myocardial Infarction Date:: 2014 History of Any Multi-Drug Resistant Organisms: None Reported Date of last positivie culture/infection: None MDRO Source:: None Past Surgical History: Section, Hernia Repair Additional Past Surgical History / Comment(s): Ventral hernia repair x 4, 2 c- sections 1992, 1994, debridements of R foot and abdomin, colonoscopy, laparoscopy, seromas x 2 drained. Past Anesthesia/Blood Transfusion Reactions: No Reported Reaction Past Psychological History: Anxiety, Bipolar, Depression Smoking Status: Current every day smoker Past Alcohol Use History: Daily, Heavy Past Drug Use History: None Reported - Past Family History Father Additional Family Medical History / Comment(s): Father is alive at age 75 with no major medical problems. Mother Family Medical History: Cancer Additional Family Medical History / Comment(s): Mother at age 65 from breast cancer/bone. Brother(s) Additional Family Medical History / Comment(s): Patient has 1 brother that from a motor vehicle accident involving alcohol. Patient has no sisters. Patient has 1 son 21 years old and one daughter 23 years old and she has no contact with her children. <Mera Dias - Last Filed: 09/11/17 21:19> General Exam Limitations: no limitations <Mera Dias - Last Filed: 09/11/17 21:19> <Angel Zaragoza - Last Filed: 09/12/17 06:19> <Angel Diaz - Last Filed: 09/12/17 08:51> - General Exam Comments Initial Comments: General: Awake and alert, well-developed; in no apparent distress. Unkempt and disheveled in appearance. HEENT: Head atraumatic, normocephalic. Pupils are equal, round and reactive to light. Extraocular movements intact. Oropharynx moist without erythema or exudate. Neck: Supple. Normal ROM. Cardiovascular: Regular rate and rhythm. No murmurs, rubs or gallops. Chest symmetrical. Respiratory: Lungs clear to auscultation bilaterally. No wheezes, rales or rhonchi. Normal respiratory effort with no use of accessory muscles. Musculoskeletal: Normal ROM, no tenderness bilateral upper and lower extremities. Skin: [place], warm and dry without rashes or lesions. Neurological: Alert and oriented x3. CN II-XII grossly intact. Speech is slurred and patient has difficulty forming complete sentences. (Mera Dias) Vital Signs 09/11/17 09/12/17 20:17 06:00 Temperature 98.7 F Pulse Rate 64 80 Respiratory 18 18 Rate Blood Pressure 113/55 105/51 O2 Sat by Pulse 97 96 Oximetry EKG Findings - EKG Comments: EKG Findings:: 21:07:28 normal sinus rhythm with left axis deviation. Low voltage QRS. Ventricular rate 73 bpm, AR interval 196, QRS duration 86, QT/QTc 412/453. No evidence for ST segment elevation or depression. No significant change from previous EKG 02/13/2017 <Mera Dias - Last Filed: 09/11/17 21:19> Medical Decision Making <Mera Dias - Last Filed: 09/11/17 21:19> <Angel Zaragoza - Last Filed: 09/12/17 06:19> <Angel Diaz - Last Filed: 03/03/18 08:51> - Medical Decision Making Dr. Diaz taking over the care of this patient at 7 AM (Angel Zaragoza) 56-year-old seen and evaluated by psychiatry, patient deemed medically clear to discharge home not homicidal or suicidal (Angel Diaz) - Lab Data Lab Results 09/12/17 09/12/17 Range/Units 00:54 00:54 Urine Color Light Yellow Urine Appearance Cloudy H (Clear) Urine pH 5.5 (5.0-8.0) Ur Specific [place] 1.003 (1.001-1.035) Urine Protein Negative (Negative) Urine Glucose (UA) Negative (Negative) Urine Ketones Negative (Negative) Urine Blood Negative (Negative) Urine Nitrite Negative (Negative) Urine Bilirubin Negative (Negative) Urine Urobilinogen <2.0 (<2.0) mg/dL Ur Leukocyte Esterase Trace H (Negative) Urine WBC 8 H (0-5) /hpf Ur Squamous Epith Cells 14 H (0-4) /hpf Urine Bacteria Rare H (None) /hpf Urine HCG, Qual Not Detected (Not Detectd) Urine Opiates Screen Detected H (NotDetected) Ur Oxycodone Screen Not Detected (NotDetected) Urine Methadone Screen Not Detected (NotDetected) Ur Propoxyphene Screen Not Detected (NotDetected) Ur Barbiturates Screen Not Detected (NotDetected) U Tricyclic Antidepress Not Detected (NotDetected) Ur Phencyclidine Scrn Not Detected (NotDetected) Ur Amphetamines Screen Not Detected (NotDetected) U Methamphetamines Scrn Not Detected (NotDetected) U Benzodiazepines Scrn Not Detected (NotDetected) Urine Cocaine Screen Not Detected (NotDetected) U Marijuana (THC) Screen Not Detected (NotDetected) Disposition <Mera Dias - Last Filed: 09/11/17 21:19> <Angel Zaragoza - Last Filed: 09/12/17 06:19> <Angel Diaz - Last Filed: 09/12/17 08:51> Clinical Impression: Alcohol intoxication Disposition: HOME SELF-CARE Condition: Good Instructions: Alcohol Intoxication (ED) Referrals: Juliet Black MD [Primary Care Provider] - 1-2 days
[2017-09-12 01:07] LABS: Appearance,Urine Cloudy (Clear); Bacteria,Urine Rare /hpf; Bilirubin,Urine Negative (Negative); Blood,Urine Negative (Negative); Color,Urine Light Yellow; Glucose,Urine (UA) Negative (Negative); Ketones,Urine Negative (Negative); Leukocyte Esterase,Urine Trace (Negative); PH, Urine 5.5 (5.0-8.0); Protein,Urine Negative (Negative); Specific Gravity,Urine 1.003 (1.001-1.035); Squamous Epithelial Cell,Urine 14 /hpf (0-4); Urobilinogen,Urine <2.0 mg/dL (<2.0); WBC,Urine 8 /hpf (0-5)
[2017-09-12 01:15] LABS: Amphetamine Screen,Urine Not Detected (NotDetected); Benzodiazepines Screen,Urine Not Detected (NotDetected); Cocaine Screen,Urine Not Detected (NotDetected); Methadone Screen, Urine Not Detected (NotDetected); Opiate Screen,Urine Detected (NotDetected); Phencyclidine Screen,Urine Not Detected (NotDetected); Tricyclic Antidepressant,Urine Not Detected (NotDetected); Urn Cannabinoid Scrn Not Detected (NotDetected)
[2017-09-12 01:16] LABS: Barbiturate Screen,Urine Not Detected (NotDetected); Oxycodone Screen, Urine Not Detected (NotDetected)
--- NOTE | 2017-09-12 10:25 | XR ---
EXAMINATION TYPE: XR chest 1V DATE OF EXAM: 09/12/2017 COMPARISON: 01/21/2016 INDICATION: Pain cough congestion history of prior heart attack TECHNIQUE: Single frontal view of the chest is obtained. FINDINGS: The heart size is normal. The pulmonary vasculature is normal. The lungs are clear. IMPRESSION: 1. No acute pulmonary process.
[2017-09-12 10:49] VITALS: BP 128/76; PULSE 86; RESP 16; TEMP 98.4
== END 2017-09-12 10:50 | disposition home or self-care (01) ==
LOC: EC 20:07
DX: F10.129 Alcohol abuse with intoxication, unspecified (principal); M54.9 Dorsalgia, unspecified; R45.851 Suicidal ideations; G47.30 Sleep apnea, unspecified; Z99.89 Dependence on other enabling machines and devices; F17.200 Nicotine dependence, unspecified, uncomplicated; Z91.041 Radiographic dye allergy status; Z88.1 Allergy status to other antibiotic agents; Z88.8 Allergy status to other drugs, medicaments and biological substances
CPT/HCPCS: 71045; 80306; 81001; 81025; 82075; 93005; 99284

== ENCOUNTER 2017-10-20 19:07 | Inpatient (IN) | payer MEDICARE ==
[2017-10-20] MEDS ORDERED: SODIUM CHLORIDE 0.9% 1,000 ML IV STA (19:31)
[2017-10-20] MEDS ORDERED: THIAMINE 100 MG/ML 2 ML VIAL IM STA (19:31)
[2017-10-20] MEDS ORDERED: ONDANSETRON 4 MG/2 ML VIAL IVP STA (19:32)
[2017-10-20 20:04] LABS: Appearance,Urine Clear (Clear); Basophils % (A) 1 %; Bilirubin,Urine Negative (Negative); Blood,Urine Negative (Negative); Color,Urine Light Yellow; Eosinophils # (A) 0.1 k/uL (0-0.7); Eosinophils % (A) 2 %; Glucose,Urine (UA) 1+ (Negative); HGB 14.1 gm/dL (11.4-16.0); Hyperchromasia Slight; Ketones,Urine Negative (Negative); Leukocyte Esterase,Urine Negative (Negative); Lymphocytes # (A) 3.5 k/uL (1.0-4.8); MCH 33.7 pg (25.0-35.0); MCHC 36.2 g/dL (31.0-37.0); Mean Platelet Volume 6.9; Monocytes # (A) 0.2 k/uL (0-1.0); Monocytes % (A) 3 %; Neutrophils # (A) 1.8 k/uL (1.3-7.7); Neutrophils % (A) 31 %; Nitrite,Urine Negative (Negative); PH, Urine 5.5 (5.0-8.0); Platelet Count 186 k/uL (150-450); Protein,Urine Negative (Negative); RDW 12.6 % (11.5-15.5); Specific Gravity,Urine 1.003 (1.001-1.035); Urobilinogen,Urine <2.0 mg/dL (<2.0); WBC 5.8 k/uL (3.8-10.6)
[2017-10-20 20:08] LABS: Lymphocytes % (A) 60 %
[2017-10-20 20:13] LABS: Amphetamine Screen,Urine Not Detected (NotDetected); Barbiturate Screen,Urine Not Detected (NotDetected); Benzodiazepines Screen,Urine Not Detected (NotDetected); Cocaine Screen,Urine Not Detected (NotDetected); Methadone Screen, Urine Not Detected (NotDetected); Opiate Screen,Urine Not Detected (NotDetected); Oxycodone Screen, Urine Not Detected (NotDetected); Phencyclidine Screen,Urine Not Detected (NotDetected); Tricyclic Antidepressant,Urine Not Detected (NotDetected); Urn Cannabinoid Scrn Not Detected (NotDetected)
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
[2017-10-20 20:24] LABS: Albumin 4.3 g/dL (3.5-5.0); Calcium 9.2 mg/dL (8.4-10.2); Magnesium 1.8 mg/dL (1.6-2.3); Potassium 4.3 mmol/L (3.5-5.1); Total Bilirubin 0.4 mg/dL (0.2-1.3); Total Protein 7.3 g/dL (6.3-8.2)
[2017-10-21] MEDS ORDERED: MAGNESIUM HYDROXIDE 2,400 MG/10 ML CUP PO PRN (09:14)
[2017-10-21] MEDS ORDERED: MAG HYDROX/AL HYDROX/SIMETH 30 ML CUP PO PRN (09:14)
[2017-10-21] MEDS: PARoxetine 10 MG TAB PO SCH (09:48)
[2017-10-21] MEDS: NICOTINE 21MG/24HR PATCH TRANSDERM SCH (09:48)
[2017-10-21] MEDS: cloNIDine HCL 0.1 MG TAB PO PRN (09:48)
[2017-10-21] MEDS: LORazepam 1 MG TAB PO PRN ×2 (09:48→13:13)
[2017-10-21] MEDS: LOSARTAN 50 MG TAB PO SCH (09:48)
[2017-10-21] MEDS ORDERED: ONDANSETRON 4 MG/2 ML VIAL IM PRN (09:50)
[2017-10-21] MEDS ORDERED: ONDANSETRON 4 MG TAB PO PRN (09:50)
[2017-10-21] MEDS: ACETAMINOPHEN TAB 325 MG TAB PO PRN (10:02)
[2017-10-21 10:15] VITALS: BMI 35.7
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
[2017-10-21] MEDS: THIAMINE 100 MG TAB PO SCH (11:44)
[2017-10-21] MEDS: DIAZEPAM 5 MG TAB PO SCH ×3 (11:45→21:42)
[2017-10-21] MEDS: FOLIC ACID 1 MG TAB PO SCH (13:11)
[2017-10-21] MEDS ORDERED: LORazepam 1 MG TAB PO STA (14:45)
--- NOTE | 2017-10-21 19:02 | P.MDCNMH ---
History of Present Illness H&P Date: 10/21/17 Chief Complaint: Medical management 57-year-old female with history of hypertension coronary artery disease. Patient presented fall call withdrawal. She admits to drinking heavily over the past 15 years reporting drinking 12 packs of strongest beers that she can find and a pint of from every day. However yesterday she decided to quit cold turkey in order to improve her lifestyle as she was worried of dying. She was afraid of going into withdrawals and decided come the hospital. She does report having history of hypertension currently taking losartan along with his heart history of coronary artery disease without having any stents in the past. She denies being on any cholesterol pills or aspirin. She otherwise denies any suicidal ideation, she admits to depression and that's when she is drinking heavily. However she is hoping that we can help her through this tough time. Currently she denies any physical complaints Review of Systems Constitutional: Patient denies fever, denies chills, denies night sweating, denies significant weight changes Eyes: Patient denies visual changes, denies eye pain ENT: Patient denies ear pain, denies rhinorrhea, denies sore throat Cardiovascular: Patient denies chest pain, denies exertional dyspnea, denies peripheral leg edema, denies orthopnea, denies paroxysmal nocturnal dyspnea Respiratory:Patient denies cough, denies wheezing, denies shortness of breath Gastrointestinal: Patient denies diarrhea, denies constipation, denies nausea , denies vomiting, denies abdominal pain Genitourinary: Patient denies dysuria, denies hematuria, denies changes in urinary habits, denies genital lesions Musculoskeletal: Patient denies muscle pain, denies joint pain Psychiatric: Patient denies changes in mood or memory, denies suicidal ideation, denies anxiety, reports depression Endocrine: Patient denies heat intolerance, denies cold intolerance, denies excessive thirst, denies polyuria Neurological: Patient denies focal neurologic deficits, denies weakness, denies numbness, denies tingling Hem/Lymphatic: Patient denies bleeding tendency, denies bruising, denies swollen lymph glands Allergic/Immun: Patient denies recent allergic reactions Skin: Patient denies rashes, denies pruritis, denies ulcers Past Medical History Past Medical History: Heart Failure, COPD, CVA/TIA, Diabetes Mellitus, GERD/ Reflux, GI Bleed, Hypertension, Liver Disease, Myocardial Infarction (MT), Osteoarthritis (OA), Seizure Disorder, Sleep Apnea/CPAP/BIPAP Additional Past Medical History / Comment(s): Past alcohol withdrawal, chronic back pain, neuropathy of the lower extremities, R foot ulcer tx at wound center by Dr. Lubin-pt states is now healed, abddominal wound-tx at wound center, CVA in 2010 with numbness/tingling fingers and R leg weakness, concussion from fall 2010, balance issues, UTIs, SZ history from etoh-yrs ago,. Neuropathy bilat feet Last Myocardial Infarction Date:: 2014 History of Any Multi-Drug Resistant Organisms: None Reported Date of last positivie culture/infection: None MDRO Source:: None Past Surgical History: Section, Hernia Repair Additional Past Surgical History / Comment(s): Ventral hernia repair x 4, 2 c- sections 1992, 1994, debridements of R foot and abdomin, colonoscopy, laparoscopy, seromas x 2 drained. Past Anesthesia/Blood Transfusion Reactions: No Reported Reaction Past Psychological History: Anxiety, Bipolar, Depression Smoking Status: Current every day smoker Past Alcohol Use History: Daily, Heavy Additional Past Alcohol Use History / Comment(s): 10/21/17: Consumes 1/5 of rum and case of beer daily. Past Drug Use History: None Reported - Past Family History Father Additional Family Medical History / Comment(s): Father is alive at age 75 with no major medical problems. Mother Family Medical History: Cancer Additional Family Medical History / Comment(s): Mother at age 65 from breast cancer/bone. Brother(s) Additional Family Medical History / Comment(s): Patient has 1 brother that from a motor vehicle accident involving alcohol. Patient has no sisters. Patient has 1 son 21 years old and one daughter 23 years old and she has no contact with her children. Medications and Allergies Home Medications Medication Instructions Recorded Confirmed Type Albuterol Inhaler [Ventolin Hfa 2 puff INHALATION RT-Q6H PRN #1 02/19/17 Rx Inhaler] PARoxetine HCL [Paxil] 30 mg PO DAILY #30 02/19/17 10/20/17 Rx traZODone HCL [Desyrel] 100 mg PO HS #30 tab 02/19/17 10/20/17 Rx Losartan Potassium 100 mg PO DAILY 10/20/17 10/20/17 History busPIRone HCL 15 mg PO BID 10/20/17 10/20/17 History Allergies Allergy/AdvReac Type Severity Reaction Status Date / Time Iodinated Contrast- Oral and Allergy Unknown Verified 10/20/17 19:57 IV Dye [Iodinated Contrast Media - IV Dye] levofloxacin [From Levaquin] Allergy Anaphylaxis Verified 10/20/17 19:57 pregabalin [From Lyrica] Allergy Nausea & Verified 10/20/17 19:57 Vomiting Physical Exam Vitals: Vital Signs Temp Pulse Pulse Resp BP BP Pulse Ox 10/21/17 17:48 87 144/72 10/21/17 14:34 97 18 185/86 10/21/17 13:10 82 20 195/84 10/21/17 12:29 22 10/21/17 11:45 96 20 172/89 10/21/17 09:59 98.9 F 110 H 22 189/92 94 L 10/21/17 09:28 99.4 F 93 16 165/84 98 10/21/17 06:30 98.5 F 109 H 18 144/70 98 10/21/17 03:38 18 10/21/17 02:30 18 10/21/17 00:38 16 10/20/17 23:10 18 10/20/17 21:46 18 10/20/17 19:21 98.2 F 91 18 115/56 100 Intake and Output 10/21/17 10/21/17 10/21/17 06:59 14:59 22:59 Other: Weight 103.532 kg Constitutional: No acute distress, conversant, pleasant Eyes: Anicteric sclerae, moist conjunctiva, no lid-lag Pupils equal round reactive to light ENMT: NC/AT Oropharynx clear, no erythema, exudates Neck: Supple, FROM, no masses, or JVD No carotid bruits No thyromegaly Lungs: Clear to auscultation Clear to percussion Normal respiratory effort, no accessory muscle use Cardiovascular: Heart regular in rate and rhythm, No murmurs, gallops, or rubs No peripheral edema Abdominal: Soft, scarring over the midline of the abdomen Nontender, no guarding, rebound or rigidity Abdomen moving with respiration Normoactive bowel sounds No hepatomegaly, No splenomegaly No palpable mass Positive abdominal wall hernia Skin: Normal temperature, tone, texture, turgor No induration No subcutaneous nodules No rash, lesions No ulcers Extremities: No digital cyanosis No clubbing Pedal pulses intact and symmetrical Radial pulses intact and symmetrical No calf tenderness Psychiatric: Alert and oriented to person, place and time Appropriate affect fair judgment Neuro Muscles Strength 5/5 in all 4 extremities Sensation to light touch grossly present throughout No focal sensory deficits Lymphatics: no palpable cervical or supraclavicular , or inguinal lymph nodes Cranial Nerve Examination - Cranial Nerves Cranial Nerve II- Optic: Intact Cranial Nerve III- Oculomotor: Intact Cranial Nerve IV- Trochlear: Intact Cranial Nerve V- Trigeminal: Intact Cranial Nerve - Abducens: Intact Cranial Nerve VII- Facial: Intact Cranial Nerve VIII- Auditory: Intact Cranial Nerve IX- Glossopharyngeal: Intact Cranial Nerve X- Vagus: Intact Cranial Nerve XI- Accessory: Intact Cranial Nerve XII- Hypoglossal: Intact Results CBC & Chem 7: 10/20/17 19:53 10/20/17 19:53 Labs: Abnormal Lab Results - Last 24 Hours (Table) 10/20/17 10/20/17 Range/Units 19:53 19:53 Carbon Dioxide 20 L (22-30) mmol/L Glucose 133 H (74-99) mg/dL AST 76 H (14-36) U/L ALT 65 H (9-52) U/L Urine Glucose (UA) 1+ H (Negative) Assessment and Plan Plan: 57-year-old female with significant past medical history for CAD, hypertension, hyperlipidemia. And diabetes mellitus. Presented voluntarily due to fear of alcohol withdrawals as she decided to quit cold turkey to improve her quality of life. She admits to heavy drinking over the past 15 years C2 depression. Currently she denies any suicidal ideation she is hoping that we can help her through the substance #Alcohol abuse, pending alcohol withdrawals Monitor for alcohol withdrawal symptoms, benzos when necessary Thiamine and folic acid Encourage by mouth intake Counseled to abstain from alcohol #History of CAD Start patient on aspirin #History of liver disease most likely due to alcoholic hepatitis Mildly elevated liver enzymes Follow-up outpatient on liver function test to consider starting statin, if liver function improves and stabilizes #Diabetes mellitus Insulin sliding scale Check A1c #Hypertension currently controlled Continue with losartan #DVT prophylaxis patient is ambulatory Thank you for allowing us to participate in the care of this patient. We will follow peripherally. Do not hesitate to contact us with questions. Someone can be reached from the [facility] hospitalist group at all hours of the day at [phone].
[2017-10-21 20:44] LABS: Glucose,Whole Blood 120 mg/dL (75-99)
[2017-10-21] MEDS: INSULIN ASPART 100 UNIT/ML 1 ML 10 ML VIAL SQ SCH (20:47)
[2017-10-21] MEDS: traZODone HCL 100 MG TAB PO SCH (21:42)
[2017-10-21] MEDS: ALBUTEROL INHALER 60 PUFF/8 GM INHALER INHALATION PRN (22:18)
[2017-10-22 06:23] LABS: Glucose,Whole Blood 118 mg/dL (75-99)
[2017-10-22] MEDS: INSULIN ASPART 100 UNIT/ML 1 ML 10 ML VIAL SQ SCH ×4 (07:42→21:06)
[2017-10-22] MEDS: DIAZEPAM 5 MG TAB PO SCH ×3 (08:01→21:07)
[2017-10-22] MEDS: PARoxetine 10 MG TAB PO SCH (08:01)
[2017-10-22] MEDS: LOSARTAN 50 MG TAB PO SCH (08:01)
[2017-10-22] MEDS: NICOTINE 21MG/24HR PATCH TRANSDERM SCH (08:36)
--- NOTE | 2017-10-22 09:04 | P.PN ---
Progress Note - Text Interval history: The patient is found in the hallway she follows me to an interview room. She reports that she is feeling better today. We have been monitoring her closely for alcohol withdrawal symptoms. She endorses some sweating. She is glad to report that she slept all night and states in fact she slept 12 hours. Her blood pressure is improved today. She reports no auditory or visual hallucinations and is relieved. She has been attending groups and she finds all supportive. She has no questions regarding medication other than to review the benzodiazepine medication. Mental status exam: The patient is an overweight female appearing her stated age. She is dressed in hospital attire. She has visible tattoos on her upper extremities. She is pleasant and cooperative. With outstretched hands she demonstrates a bilateral fine tremor. She maintains appropriate eye contact. She spontaneously engages in the conversation. She reports depressed mood with some feelings of anxiety. She feels safe in the hospital. She is endorsing no thoughts of actively wanting to harm others. She is reporting no auditory or visual hallucinations or specific delusions there is no observed evidence of psychosis this morning. Thought process can be circumstantial at times but she demonstrates no tangential thinking loose associations or flight of ideas. Insight and judgment limited. Plan: The patient will continue on her current psychotropic medication. We will continue to closely monitor for alcohol withdrawal symptoms. We will continue the Valium and as needed Ativan as written. Vital signs reviewed. She is encouraged to continue participating in the milieu. We will discuss her case further today during team meeting to evaluate any potential support she has as an outpatient. She requires continued psychiatric hospitalization.
[2017-10-22] MEDS: ALBUTEROL INHALER 60 PUFF/8 GM INHALER INHALATION PRN (09:40)
--- NOTE | 2017-10-22 09:55 | P.PN ---
Progress Note - Text Progress Note Date: 10/22/17 patient started on Aspirin and atorvastatin due to her history of CAD and CVA check lipid profile follow up liver enzymes in 3 days blood pressure not optimally controlled at this point will monitor for another 24 hours , pending clinical course for further decisions Please Do not hesitate to contact me with questions. Someone can be reached from the [facility] hospitalist group at all hours of the day at .
[2017-10-22 10:22] LABS: Cholesterol 198 mg/dL (<200); HDL Cholesterol 65 mg/dL (40-60); LDL Cholesterol,Calculated 89 mg/dL (0-99); Triglycerides 221 mg/dL (<150)
[2017-10-22] MEDS: FOLIC ACID 1 MG TAB PO SCH (11:05)
[2017-10-22] MEDS: cloNIDine HCL 0.1 MG TAB PO PRN (11:05)
[2017-10-22] MEDS: ASPIRIN 81 MG PO SCH (11:05)
[2017-10-22] MEDS: THIAMINE 100 MG TAB PO SCH (11:05)
[2017-10-22] MEDS: LORazepam 1 MG TAB PO PRN ×2 (11:05→17:29)
[2017-10-22 12:26] LABS: Glucose,Whole Blood 130 mg/dL (75-99)
[2017-10-22] MEDS: CYCLOBENZAPRINE 5 MG TAB PO PRN (12:32)
[2017-10-22 12:40] LABS: Hemoglobin A1C 5.7 % (4.0-6.0)
[2017-10-22] MEDS ORDERED: cloNIDine HCL 0.2 MG TAB PO STA (15:56)
[2017-10-22 17:09] LABS: Glucose,Whole Blood 125 mg/dL (75-99)
[2017-10-22] MEDS ORDERED: LORazepam 1 MG TAB PO STA (18:17)
[2017-10-22 21:02] LABS: Glucose,Whole Blood 148 mg/dL (75-99)
[2017-10-22] MEDS: traZODone HCL 100 MG TAB PO SCH (21:04)
[2017-10-22] MEDS: ATORVASTATIN 40 MG TAB PO SCH (21:04)
[2017-10-23 06:44] LABS: Glucose,Whole Blood 147 mg/dL (75-99)
[2017-10-23] MEDS: INSULIN ASPART 100 UNIT/ML 1 ML 10 ML VIAL SQ SCH ×4 (08:55→21:55)
[2017-10-23] MEDS: ASPIRIN 81 MG PO SCH (08:56)
[2017-10-23] MEDS: NICOTINE 21MG/24HR PATCH TRANSDERM SCH (08:56)
[2017-10-23] MEDS: DIAZEPAM 5 MG TAB PO SCH ×3 (08:56→21:53)
[2017-10-23] MEDS: LOSARTAN 50 MG TAB PO SCH (08:56)
[2017-10-23] MEDS: THIAMINE 100 MG TAB PO SCH (08:57)
[2017-10-23] MEDS: FOLIC ACID 1 MG TAB PO SCH (08:57)
[2017-10-23] MEDS: PARoxetine 10 MG TAB PO SCH (08:57)
--- NOTE | 2017-10-23 10:08 | P.PN ---
Progress Note - Text Interval history: The patient is found in her room she is lying in bed she is willing to speak this morning but doesn't feel she should get up and come to an interview room. She reports feeling dizzy she reports that she is diaphoretic. She indicates she did get up to eat breakfast this morning. She indicates that she slept well last night and staff reported she slept 7 hours. It appears her hygiene continues to suffer she reports not showering. She is being followed by internal medicine. Vital signs reviewed. There is fluctuation in her blood pressure again this could be due to alcohol withdrawal phenomenon. She did receive an Ativan last evening on top of her scheduled Valium. Mental status exam: The patient is an overweight female appearing her stated age. She is lying in bed she is dressed in hospital attire. She keeps her eyes closed but does provide some verbal responses to questions asked before she falls back asleep. The room has a foul odor indicating impaired hygiene. She reports some visual hallucinations of seeing people standing next to her. She demonstrates no verbal or physical aggressiveness. She demonstrates no tremulousness activity while lying in bed. She does traits no abnormal involuntary movements. Insight and judgment limited. Plan: The patient will continue on her current psychotropic medications. We will continue to monitor for any acute symptoms of alcohol withdrawal. Continue Valium is written with Ativan as needed for breakthrough. Blood pressure changes are likely due to alcohol withdrawal phenomenon. We will monitor her by mouth intake.
[2017-10-23 12:37] LABS: Glucose,Whole Blood 155 mg/dL (75-99)
[2017-10-23] MEDS: ALBUTEROL INHALER 60 PUFF/8 GM INHALER INHALATION PRN ×2 (13:44→21:00)
[2017-10-23 17:33] LABS: Glucose,Whole Blood 124 mg/dL (75-99)
[2017-10-23 21:38] LABS: Glucose,Whole Blood 161 mg/dL (75-99)
[2017-10-23] MEDS: traZODone HCL 100 MG TAB PO SCH (21:51)
[2017-10-23] MEDS: ATORVASTATIN 40 MG TAB PO SCH (21:51)
[2017-10-23] MEDS: cloNIDine HCL 0.1 MG TAB PO PRN (21:54)
[2017-10-24 06:40] LABS: Glucose,Whole Blood 134 mg/dL (75-99)
[2017-10-24] MEDS: INSULIN ASPART 100 UNIT/ML 1 ML 10 ML VIAL SQ SCH ×4 (08:12→21:04)
[2017-10-24] MEDS: PARoxetine 10 MG TAB PO SCH (09:15)
[2017-10-24] MEDS: ASPIRIN 81 MG PO SCH (09:15)
[2017-10-24] MEDS: LOSARTAN 50 MG TAB PO SCH (09:15)
[2017-10-24] MEDS: DIAZEPAM 5 MG TAB PO SCH ×3 (09:15→21:08)
[2017-10-24] MEDS: HYDROCHLOROTHIAZIDE 25 MG TAB PO SCH (10:27)
[2017-10-24 13:03] LABS: Glucose,Whole Blood 137 mg/dL (75-99)
[2017-10-24] MEDS: THIAMINE 100 MG TAB PO SCH (13:03)
[2017-10-24] MEDS: FOLIC ACID 1 MG TAB PO SCH (13:03)
--- NOTE | 2017-10-24 13:12 | P.PN ---
Progress Note - Text Interval history: The patient is found in group she follows me to an interview room. She reports that she is feeling better. Surprisingly she feels she is navigating through her alcohol withdrawal better than usual. Vital signs reviewed. She continues to sleep throughout the night appetite stable. She is endorsing no acute suicidal thoughts. She does continue to worry. We discussed that she's been on the Paxil for numerous years and it's likely that that medication needs to be changed and she is agreeable. We discussed Zoloft as an alternative. Mental status exam: The patient is an overweight female she is dressed in hospital gowns. She has long hair she has a disheveled appearance. Eye contact is appropriate speech is fluent area she is pleasant and cooperative. She denies having any acute suicidal or homicidal ideation intent or plan. She endorses symptoms of anxiety. She is endorsing no auditory or visual hallucinations or any specific delusions. She does not demonstrate any tangential thinking loose associations or flight of ideas. She does not appear hypomanic or manic. No observed abnormal involuntary movements, no verbal or physical aggressiveness. She remains oriented to person place and date. Plan: The patient will be tapered off of Paxil we will reduce to 10 mg daily initially. We will continue the Valium is written and we'll likely start reducing that dose tomorrow. We plan to initiate Zoloft for depressive and anxiety symptoms.
[2017-10-24] MEDS: NYSTATIN 100,000 UNIT/GM POWD 15 GM TOPICAL SCH ×2 (14:37→21:08)
[2017-10-24] MEDS: CYCLOBENZAPRINE 5 MG TAB PO PRN (14:37)
[2017-10-24 18:04] LABS: Glucose,Whole Blood 154 mg/dL (75-99)
[2017-10-24 20:20] LABS: Glucose,Whole Blood 151 mg/dL (75-99)
[2017-10-24] MEDS: traZODone HCL 100 MG TAB PO SCH (21:08)
[2017-10-24] MEDS: ATORVASTATIN 40 MG TAB PO SCH (21:08)
[2017-10-24] MEDS: ALBUTEROL INHALER 60 PUFF/8 GM INHALER INHALATION PRN (21:12)
[2017-10-25 06:06] LABS: Glucose,Whole Blood 144 mg/dL (75-99)
[2017-10-25] MEDS: cloNIDine HCL 0.1 MG TAB PO PRN (06:09)
[2017-10-25] MEDS: INSULIN ASPART 100 UNIT/ML 1 ML 10 ML VIAL SQ SCH ×4 (08:05→20:15)
[2017-10-25] MEDS: ALBUTEROL INHALER 60 PUFF/8 GM INHALER INHALATION PRN ×3 (08:21→20:26)
[2017-10-25] MEDS: HYDROCHLOROTHIAZIDE 25 MG TAB PO SCH (09:00)
[2017-10-25] MEDS: ASPIRIN 81 MG PO SCH (09:00)
[2017-10-25] MEDS: LOSARTAN 50 MG TAB PO SCH (09:00)
[2017-10-25] MEDS: DIAZEPAM 5 MG TAB PO SCH ×3 (09:00→21:45)
[2017-10-25] MEDS: PARoxetine 10 MG TAB PO SCH (09:00)
[2017-10-25] MEDS: NYSTATIN 100,000 UNIT/GM POWD 15 GM TOPICAL SCH ×3 (09:44→22:10)
--- NOTE | 2017-10-25 12:37 | P.PN ---
Progress Note - Text Interval history: The patient is found in group she follows me to an interview room. She reports her mood is improving. She has not yet shower but plans to shower today. Appetite stable. She still states she had some sweating last evening but this is improving. We discussed cross tapering her off of Paxil onto Zoloft and she is agreeable. We discussed starting to reduce the Valium. Mental status exam: The patient is an overweight female hygiene grooming are impaired. She is dressed in her own clothing. Eye contact is appropriate speech is fluent. She endorses a depressed mood but feels safe here in the hospital. She does endorse feelings of anxiety at times. She is reporting no thoughts of harming others. She is endorsing no hallucinations or specific delusions. She demonstrates no verbal or physical aggressiveness. She is oriented to person place and date. Plan: The patient will continue on her psychotropic medications as written however we will reduce the Valium to 5 mg twice daily and 10 mg at 1600. She has not been receiving any Ativan. Tomorrow we will likely discontinue the Paxil and initiate Zoloft for depressive and anxiety symptoms. Vital signs reviewed there is still some variation but this is likely due to baseline hypertension.
[2017-10-25 13:00] LABS: Glucose,Whole Blood 132 mg/dL (75-99)
[2017-10-25] MEDS: THIAMINE 100 MG TAB PO SCH (14:48)
[2017-10-25] MEDS: FOLIC ACID 1 MG TAB PO SCH (14:49)
[2017-10-25 17:23] LABS: Glucose,Whole Blood 138 mg/dL (75-99)
[2017-10-25 20:10] LABS: Glucose,Whole Blood 243 mg/dL (75-99)
[2017-10-25] MEDS: ATORVASTATIN 40 MG TAB PO SCH (21:45)
[2017-10-25] MEDS: traZODone HCL 100 MG TAB PO SCH (21:45)
[2017-10-26 05:50] LABS: Glucose,Whole Blood 161 mg/dL (75-99)
[2017-10-26] MEDS: INSULIN ASPART 100 UNIT/ML 1 ML 10 ML VIAL SQ SCH ×2 (08:10→12:55)
[2017-10-26] MEDS: HYDROCHLOROTHIAZIDE 25 MG TAB PO SCH (08:53)
[2017-10-26] MEDS: ASPIRIN 81 MG PO SCH (08:53)
[2017-10-26] MEDS: PARoxetine 10 MG TAB PO SCH (08:53)
[2017-10-26] MEDS: DIAZEPAM 5 MG TAB PO SCH ×3 (08:53→21:54)
[2017-10-26] MEDS: LOSARTAN 50 MG TAB PO SCH (08:53)
[2017-10-26] MEDS: NYSTATIN 100,000 UNIT/GM POWD 15 GM TOPICAL SCH ×2 (08:56→21:55)
[2017-10-26] MEDS: ALBUTEROL INHALER 60 PUFF/8 GM INHALER INHALATION PRN ×3 (09:17→19:51)
--- NOTE | 2017-10-26 09:46 | P.PN ---
Progress Note - Text Interval history: The patient is found in group she follows me to an interview room she reports she is doing better with alcohol withdrawal symptoms she is experiencing no diaphoresis. We discussed a plan for reducing the Valium further. We will discontinue the Paxil and initiate Zoloft as we have discussed. She does continue to experience some mood symptoms and anxiety but feels safe here on the mental health unit. Again we discussed the need for her to abstain from alcohol. She has been attending groups she has not been demonstrating any agitated behavior. Mental status exam: The patient is an overweight female she is dressed in her own clothing hygiene is improved she's mildly disheveled. She reports her mood is improving. She is endorsing no acute suicidal or homicidal ideation intent or plan. With outstretched arms she demonstrates a very fine tremor bilaterally. Her affect is demonstrating an improved range. Insight and judgment improving. She does not appear hypomanic or manic. She is endorsing no symptoms of psychosis and there is no observed evidence of psychosis. She demonstrates verbal or physical aggressiveness. She is oriented to person place and date. Plan: We will discontinue the Paxil as noted and initiate Zoloft 50 mg daily. We have reduced her Valium we will carefully taper her off of that medication over the next several days. We will monitor her for safety and encourage her participation in the milieu. She continues to not want to participate in inpatient chemical dependency treatment. We will continue to monitor her for safety.
[2017-10-26] MEDS: FOLIC ACID 1 MG TAB PO SCH (12:52)
[2017-10-26] MEDS: THIAMINE 100 MG TAB PO SCH (12:52)
[2017-10-26 13:08] LABS: Glucose,Whole Blood 113 mg/dL (75-99)
[2017-10-26] MEDS: amLODIPine 5 MG TAB PO SCH (16:39)
[2017-10-26] MEDS: CYCLOBENZAPRINE 5 MG TAB PO PRN (16:40)
[2017-10-26] MEDS: metFORMIN 500 MG TAB PO SCH (17:02)
[2017-10-26 17:12] LABS: Glucose,Whole Blood 136 mg/dL (75-99)
[2017-10-26] MEDS: ACETAMINOPHEN TAB 325 MG TAB PO PRN (20:06)
[2017-10-26 20:30] LABS: Glucose,Whole Blood 153 mg/dL (75-99)
[2017-10-26] MEDS: SERTRALINE 50 MG TAB PO SCH (21:53)
[2017-10-26] MEDS: ATORVASTATIN 40 MG TAB PO SCH (21:53)
[2017-10-26] MEDS: traZODone HCL 100 MG TAB PO SCH (21:53)
[2017-10-27 05:58] LABS: Glucose,Whole Blood 131 mg/dL (75-99)
[2017-10-27] MEDS: metFORMIN 500 MG TAB PO SCH ×2 (07:48→17:39)
[2017-10-27] MEDS: amLODIPine 5 MG TAB PO SCH (09:00)
[2017-10-27] MEDS: HYDROCHLOROTHIAZIDE 25 MG TAB PO SCH (09:01)
[2017-10-27] MEDS: ASPIRIN 81 MG PO SCH (09:01)
[2017-10-27] MEDS: FOLIC ACID 1 MG TAB PO SCH (09:01)
[2017-10-27] MEDS: LOSARTAN 50 MG TAB PO SCH (09:01)
[2017-10-27] MEDS: DIAZEPAM 5 MG TAB PO SCH ×2 (09:01→21:12)
[2017-10-27] MEDS: THIAMINE 100 MG TAB PO SCH (09:01)
[2017-10-27] MEDS: NYSTATIN 100,000 UNIT/GM POWD 15 GM TOPICAL SCH ×2 (09:02→21:11)
--- NOTE | 2017-10-27 09:30 | P.PN ---
Progress Note - Text Interval history: The patient is found in the hallway she follows me to an interview room. She reports that her mood is improving. She continues to do well with alcohol withdrawal. Internal medicine has ordered Norvasc and metformin for her elevated blood pressure and blood sugars. Vital signs were reviewed. She has been participating in the milieu. She has no questions or concerns regarding her medication. Mental status exam: The patient is an overweight female she is dressed in hospital attire hygiene is much improved. Eye contact is appropriate speech is fluent spontaneous nonpressured. She feels that mood and anxiety symptoms are improving she feels safe here in the hospital. She denies having any homicidal ideation intent or plan. She reports no auditory or visual hallucinations or any specific delusions. She does not appear overtly psychotic. She demonstrates no tangential thinking loose associations or flight of ideas. No abnormal involuntary movements no verbal or physical aggressiveness demonstrated. Plan: The patient will continue on her current psychotropic medications I will reduce the Valium to 5 mg twice daily Ativan is still available if needed. We will monitor her for safety and encourage her participation in the milieu. She will likely be appropriate for discharge in the next 2-3 days depending on her progress.
[2017-10-27] MEDS: ALBUTEROL INHALER 60 PUFF/8 GM INHALER INHALATION PRN (11:03)
[2017-10-27 12:41] LABS: Glucose,Whole Blood 132 mg/dL (75-99)
[2017-10-27 17:39] LABS: Glucose,Whole Blood 114 mg/dL (75-99)
[2017-10-27] MEDS: SERTRALINE 50 MG TAB PO SCH (21:12)
[2017-10-27] MEDS: ATORVASTATIN 40 MG TAB PO SCH (21:12)
[2017-10-27] MEDS: traZODone HCL 100 MG TAB PO SCH (21:12)
[2017-10-27 21:27] LABS: Glucose,Whole Blood 149 mg/dL (75-99)
[2017-10-28 06:34] LABS: Glucose,Whole Blood 133 mg/dL (75-99)
[2017-10-28] MEDS: DIAZEPAM 5 MG TAB PO SCH ×2 (09:02→22:05)
[2017-10-28] MEDS: metFORMIN 500 MG TAB PO SCH ×2 (09:02→17:21)
[2017-10-28] MEDS: amLODIPine 5 MG TAB PO SCH (09:02)
[2017-10-28] MEDS: ASPIRIN 81 MG PO SCH (09:02)
[2017-10-28] MEDS: LOSARTAN 50 MG TAB PO SCH (09:02)
[2017-10-28] MEDS: HYDROCHLOROTHIAZIDE 25 MG TAB PO SCH (09:02)
[2017-10-28] MEDS: NYSTATIN 100,000 UNIT/GM POWD 15 GM TOPICAL SCH ×2 (09:02→22:05)
--- NOTE | 2017-10-28 09:18 | P.PN ---
Progress Note - Text Interval history: The patient is found in the hallway she follows me to an interview room. She reports her mood continues to improve. She is feeling more stable. She spontaneously describes future oriented thinking. We again reviewed her psychotropic medication her questions were answered. We will plan to taper her off of the Valium tomorrow. She has used no as needed Ativan. She has questions regarding her blood pressure and those were addressed. She continues to attend group. Mental status exam: The patient is an overweight female she is alert she presents with adequate hygiene grooming. She is dressed in her own clothing as well as hospital gowns. She reports her mood is good affect is more expressive appropriately. She is reporting no acute suicidal or homicidal ideation intent or plan. There is no report or evidence of psychosis. She does not present hypomanic or manic. Insight and judgment improving. She is oriented to person place and date. Plan: The patient will continue on her current psychotropic medication. We will continue the Valium is written and plan to taper that off tomorrow. We will plan to discharge her in the next 1-2 days. We will continue to monitor her for safety.
[2017-10-28] MEDS: THIAMINE 100 MG TAB PO SCH (12:11)
[2017-10-28] MEDS: FOLIC ACID 1 MG TAB PO SCH (12:11)
[2017-10-28 12:15] LABS: Glucose,Whole Blood 148 mg/dL (75-99)
[2017-10-28] MEDS: CYCLOBENZAPRINE 5 MG TAB PO PRN (12:28)
[2017-10-28 17:22] LABS: Glucose,Whole Blood 135 mg/dL (75-99)
[2017-10-28 20:21] LABS: Glucose,Whole Blood 161 mg/dL (75-99)
[2017-10-28] MEDS: ALBUTEROL INHALER 60 PUFF/8 GM INHALER INHALATION PRN (21:22)
[2017-10-28] MEDS: traZODone HCL 100 MG TAB PO SCH (22:05)
[2017-10-28] MEDS: SERTRALINE 50 MG TAB PO SCH (22:05)
[2017-10-28] MEDS: ATORVASTATIN 40 MG TAB PO SCH (22:05)
[2017-10-29 06:13] LABS: Glucose,Whole Blood 129 mg/dL (75-99)
[2017-10-29 07:26] VITALS: BP 136/85; PULSE 83; RESP 16; TEMP 98.3
[2017-10-29] MEDS: HYDROCHLOROTHIAZIDE 25 MG TAB PO SCH (09:03)
[2017-10-29] MEDS: ASPIRIN 81 MG PO SCH (09:03)
[2017-10-29] MEDS: DIAZEPAM 5 MG TAB PO SCH (09:04)
[2017-10-29] MEDS: LOSARTAN 50 MG TAB PO SCH (09:04)
[2017-10-29] MEDS: amLODIPine 5 MG TAB PO SCH (09:05)
[2017-10-29] MEDS: metFORMIN 500 MG TAB PO SCH (09:05)
[2017-10-29] MEDS: NYSTATIN 100,000 UNIT/GM POWD 15 GM TOPICAL SCH (09:23)
--- NOTE | 2017-10-29 09:43 | P.DS ---
Providers Date of admission: 10/21/17 09:05 Expected date of discharge: 10/29/17 Attending physician: Yony Meneses Consults: 10/21/17 09:14 Consult Physician Routine Consulting Provider: Davi Physician Consult Reason/Comments: history and physical Do you want consulting provider notified?: Yes Primary care physician: Juliet Black MD - Discharge Diagnosis(es) (1) Major depressive disorder, recurrent severe without psychotic features Current Visit: Yes Status: Acute Priority: High (2) Alcohol use disorder, severe, dependence Current Visit: Yes Status: Acute Priority: High Hospital Course: Brief summary admission note: This patient is a 57-year-old female who presented to the emergency room with acute suicidal ideation in the context of having an acute alcohol use disorder. The patient presented to the hospital after calling 911. She described having suicidal ideation and a long history of major depressive disorder. She had plans of killing herself via drinking excessive amounts of alcohol. Her hygiene was poor she had not been showering she was not appropriately eating. She reported being sedentary and only sitting in a chair and watching TV all day. For full details please refer to my psychiatric evaluation dictated 10/21/2017. Summary of hospital course: The patient was admitted to the mental health unit she did sign in voluntarily. We reviewed her presenting symptoms and medication options. Her Paxil was continued initially as our primary concern was preventing delirium tremens. She was given Ativan and scheduled Valium for several days until it was clear there was no longer any acute risk of alcohol withdrawal symptoms. During the stay we decided to cross taper off of Paxil and onto Zoloft. BuSpar was discontinued. She remained on trazodone for sleep. The patient was seen by internal medicine. Her blood pressure was found to be elevated even after alcohol withdrawal risk has subsided. She was started on Norvasc. She was restarted on Lipitor. She was also started on metformin as her blood sugars were abnormal. At length we discussed the importance of inpatient chemical dependency treatment but the patient refuses. We discussed initiating a medication like Campral or naltrexone but she does not wish to have those prescribed. She states that her suicidal thoughts have completely resolved her mood is much improved and she demonstrates future oriented thinking. At length we discussed that this is her ninth admission on this mental health unit in approximately 2 years. We reviewed the many reasons that she needs to discontinue use of alcohol. Mental status exam: The patient is an overweight female. She is dressed in hospital gowns. She presents with adequate hygiene grooming. Eye contact is appropriate speech is fluent spontaneous nonpressured. She is pleasant and cooperative for the duration of the session. She reports her mood is good she denies having any suicidal or homicidal ideation intent or plan. Affect is appropriately expressive and she demonstrates an appropriate range. She denies having any auditory or visual hallucinations or any specific delusions. There is no observed evidence of psychosis. She does not demonstrate any tangential thinking loose associations or flight of ideas. She does not appear hypomanic or manic. She demonstrates no verbal or physical aggressiveness. She remains oriented to person place and date. Insight and judgment have improved. Impressions 1. Major depressive disorder recurrent severe without psychosis, alcohol use disorder severe 2. Hypertension, hyperglycemia, hyperlipidemia 3. Psychosocial dysfunction due to alcohol use disorder Plan: The patient will be discharged from the mental health unit today to return home. She will continue on Zoloft 50 mg daily trazodone 100 mg at bedtime. She no longer requires use of the benzodiazepine. She is instructed to follow-up with her primary care physician in one week regarding the changes to her blood pressure medication and to further evaluate her blood sugar. She strongly encouraged to consider inpatient chemical dependency treatment but she refuses. Again she does not wish to have a medication prescribed to address her alcohol use disorder. She is agreeable to following up as an outpatient with mental health services. She will address her substance use issues in that venue as well. There is no imminent safety risk she is appropriate for transfer back to outpatient care. We discussed that her safety risk will be elevated if she continues to drink alcohol. She is instructed to return to the hospital with any acute safety concerns. Patient Condition at Discharge: Stable Plan - Discharge Summary Discharge Rx Participant: No New Discharge Prescriptions: New amLODIPine [Norvasc] 5 mg PO DAILY #30 tab Aspirin 81 mg PO DAILY chew Atorvastatin [Lipitor] 40 mg PO HS #30 tab Hydrochlorothiazide [Hydrodiuril] 25 mg PO DAILY #30 tab metFORMIN HCL [Glucophage] 500 mg PO BID-W/MEALS #30 tab Sertraline [Zoloft] 50 mg PO HS #30 tab Continue Albuterol Inhaler [Ventolin Hfa Inhaler] 2 puff INHALATION RT-Q6H PRN #1 PRN Reason: Wheezing Losartan Potassium 100 mg PO DAILY traZODone HCL [Desyrel] 100 mg PO HS #30 tab Discontinued PARoxetine HCL [Paxil] 30 mg PO DAILY #30 busPIRone HCL 15 mg PO BID Discharge Medication List Albuterol Inhaler [Ventolin Hfa Inhaler] 2 puff INHALATION RT-Q6H PRN #1 [Rx] Losartan Potassium 100 mg PO DAILY 10/20/17 [History] Aspirin 81 mg PO DAILY chew 10/29/17 [Rx] Atorvastatin [Lipitor] 40 mg PO HS #30 tab 10/29/17 [Rx] Hydrochlorothiazide [Hydrodiuril] 25 mg PO DAILY #30 tab 10/29/17 [Rx] Sertraline [Zoloft] 50 mg PO HS #30 tab 10/29/17 [Rx] amLODIPine [Norvasc] 5 mg PO DAILY #30 tab 10/29/17 [Rx] metFORMIN HCL [Glucophage] 500 mg PO BID-W/MEALS #30 tab 10/29/17 [Rx] traZODone HCL [Desyrel] 100 mg PO HS #30 tab 10/29/17 [Rx] Follow up Appointment(s)/Referral(s): [employer] [facility] Ferro [Outside] - 11/05/17 2:00 pm (Juliet Barajas MD [Primary Care Provider] - 1-2 days
[2017-10-29 12:44] LABS: Glucose,Whole Blood 149 mg/dL (75-99)
[2017-10-29] MEDS: FOLIC ACID 1 MG TAB PO SCH (12:48)
[2017-10-29] MEDS: THIAMINE 100 MG TAB PO SCH (12:49)
[2017-10-29] MEDS: ALBUTEROL INHALER 60 PUFF/8 GM INHALER INHALATION PRN (13:58)
== END 2017-10-29 14:48 | disposition home or self-care (01) | DRG 885 ==
LOC: EC 19:07 → 3MHU 10-21 09:05
PROVIDERS: ADMIT Psychiatry & Neurology Psychiatry; ATTEND Psychiatry & Neurology Psychiatry
DX: F33.2 Major depressive disorder, recurrent severe without psychotic features (principal); R45.851 Suicidal ideations; F10.239 Alcohol dependence with withdrawal, unspecified; E11.42 Type 2 diabetes mellitus with diabetic polyneuropathy; I11.0 Hypertensive heart disease with heart failure; I50.9 Heart failure, unspecified; E11.65 Type 2 diabetes mellitus with hyperglycemia; E66.3 Overweight; E78.5 Hyperlipidemia, unspecified; F41.9 Anxiety disorder, unspecified; G40.909 Epilepsy, unspecified, not intractable, without status epilepticus; F10.229 Alcohol dependence with intoxication, unspecified; G47.30 Sleep apnea, unspecified; I25.10 Atherosclerotic heart disease of native coronary artery without angina pectoris; I25.2 Old myocardial infarction; J44.9 Chronic obstructive pulmonary disease, unspecified; K21.9 Gastro-esophageal reflux disease without esophagitis; G89.29 Other chronic pain; M19.90 Unspecified osteoarthritis, unspecified site; M54.9 Dorsalgia, unspecified; F17.210 Nicotine dependence, cigarettes, uncomplicated; Z79.899 Other long term (current) drug therapy; Z88.8 Allergy status to other drugs, medicaments and biological substances; Z88.1 Allergy status to other antibiotic agents; Z91.041 Radiographic dye allergy status; I69.941 Monoplegia of lower limb following unspecified cerebrovascular disease affecting right dominant side; I69.998 Other sequelae following unspecified cerebrovascular disease; Z87.440 Personal history of urinary (tract) infections; Z68.36 Body mass index [BMI] 36.0-36.9, adult; Z71.6 Tobacco abuse counseling; Z80.3 Family history of malignant neoplasm of breast; Z80.8 Family history of malignant neoplasm of other organs or systems; Z81.8 Family history of other mental and behavioral disorders; Y90.8 Blood alcohol level of 240 mg/100 ml or more
CPT/HCPCS: 36415; 80053; 80061; 80306; 80320; 81003; 82075; 83036; 83690; 83735; 84443; 85025; 94640; 96361; 96372; 96374; 99285

== ENCOUNTER 2018-03-09 18:51 | Observation (INO) | payer MEDICARE ==
[2018-03-09] MEDS ORDERED: LORazepam 2 MG/ML INJ IV STA (18:53)
--- NOTE | 2018-03-09 18:56 | ED ---
General Adult HPI - General Stated complaint: Abd.pain Time Seen by Provider: 03/09/18 18:51 Source: RN notes reviewed - History of Present Illness Initial comments: This is a 57-year-old female presents emergency Department complaining of left upper quadrant abdominal pain. Patient states it's been hurting since she got in an accident with her tractor on Thursday. Patient states ever since then the pain is gotten worse and Motrin Tylenol aren't helping. Patient states she's a daily drinker and drinks quite a bit every day. Patient denies any chest pain palpitations difficulty breathing or shortness of breath. Patient denies any fever chills or cough. Patient denies any nausea vomiting or diarrhea. Patient states she believes she has pancreatitis O she's never had pancreatitis in the past. Patient denies any drug use. Patient denies any headache patient denies numbness weakness. Patient denies any lightheadedness or dizziness. - Related Data Home Medications Medication Instructions Recorded Confirmed Losartan Potassium 100 mg PO DAILY 10/20/17 10/20/17 Previous Rx's Medication Instructions Recorded Albuterol Inhaler [Ventolin Hfa 2 puff INHALATION RT-Q6H PRN #1 02/19/17 Inhaler] Aspirin 81 mg PO DAILY chew 10/29/17 Atorvastatin [Lipitor] 40 mg PO HS #30 tab 10/29/17 Hydrochlorothiazide [Hydrodiuril] 25 mg PO DAILY #30 tab 10/29/17 Sertraline [Zoloft] 50 mg PO HS #30 tab 10/29/17 amLODIPine [Norvasc] 5 mg PO DAILY #30 tab 10/29/17 metFORMIN HCL [Glucophage] 500 mg PO BID-W/MEALS #30 tab 10/29/17 traZODone HCL [Desyrel] 100 mg PO HS #30 tab 10/29/17 Allergies Allergy/AdvReac Type Severity Reaction Status Date / Time Iodinated Contrast- Oral and Allergy Unknown Verified 10/20/17 19:57 IV Dye [Iodinated Contrast Media - IV Dye] levofloxacin [From Levaquin] Allergy Anaphylaxis Verified 10/20/17 19:57 pregabalin [From Lyrica] Allergy Nausea & Verified 10/20/17 19:57 Vomiting Review of Systems ROS Statement: Those systems with pertinent positive or pertinent negative responses have been documented in the HPI. ROS Other: All systems not noted in ROS Statement are negative. Past Medical History Past Medical History: Heart Failure, COPD, CVA/TIA, Diabetes Mellitus, GERD/ Reflux, GI Bleed, Hypertension, Liver Disease, Myocardial Infarction ([place]), Osteoarthritis (OA), Seizure Disorder, Sleep Apnea/CPAP/BIPAP Additional Past Medical History / Comment(s): Past alcohol withdrawal, chronic back pain, neuropathy of the lower extremities, R foot ulcer tx at wound center by Dr. Lubin-pt states is now healed, abddominal wound-tx at wound center, CVA in 2010 with numbness/tingling fingers and R leg weakness, concussion from fall 2010, balance issues, UTIs, SZ history from etoh-yrs ago,. Neuropathy bilat feet Last Myocardial Infarction Date:: 2014 History of Any Multi-Drug Resistant Organisms: None Reported Date of last positivie culture/infection: None MDRO Source:: None Past Surgical History: Section, Hernia Repair Additional Past Surgical History / Comment(s): Ventral hernia repair x 4, 2 c- sections 1992, 1994, debridements of R foot and abdomin, colonoscopy, laparoscopy, seromas x 2 drained. Past Anesthesia/Blood Transfusion Reactions: No Reported Reaction Past Psychological History: Anxiety, Bipolar, Depression Smoking Status: Current every day smoker Past Alcohol Use History: Daily, Heavy Additional Past Alcohol Use History / Comment(s): 10/21/17: Consumes 1/5 of rum and case of beer daily. Past Drug Use History: None Reported - Past Family History Father Additional Family Medical History / Comment(s): Father is alive at age 75 with no major medical problems. Mother Family Medical History: Cancer Additional Family Medical History / Comment(s): Mother at age 65 from breast cancer/bone. Brother(s) Additional Family Medical History / Comment(s): Patient has 1 brother that from a motor vehicle accident involving alcohol. Patient has no sisters. Patient has 1 son 21 years old and one daughter 23 years old and she has no contact with her children. General Exam - General Exam Comments Initial Comments: GENERAL: Patient is well-developed and well-nourished. Patient is nontoxic and well- hydrated and is in no acute distress. Patient appears very intoxicated ENT: Neck is soft and supple. No significant lymphadenopathy is noted. Oropharynx is clear. Moist mucous membranes. Neck has full range of motion without eliciting any pain. EYES: The sclera were anicteric and conjunctiva were pink and moist. Extraocular movements were intact and pupils were equal round and reactive to light. Eyelids were unremarkable. PULMONARY: Unlabored respirations. Good breath sounds bilaterally. No audible rales rhonchi or wheezing was noted. CARDIOVASCULAR: There is a regular rate and rhythm without any murmurs gallops or rubs. ABDOMEN: Soft and nontender with normal bowel sounds. I'm unable to find any area of tenderness on palpation No palpable organomegaly was noted. There is no palpable pulsatile mass. SKIN: Skin is clear with no lesions or rashes and otherwise unremarkable. NEUROLOGIC: Patient is alert and oriented x3. Cranial nerves II through XII are grossly intact. Motor and sensory are also intact. Normal speech, volume and content. Symmetrical smile. MUSCULOSKELETAL: Normal extremities with adequate strength and full range of motion. No lower extremity swelling or edema. No calf tenderness. LYMPHATICS: No significant lymphadenopathy is noted PSYCHIATRIC: Normal psychiatric evaluation. Normal interpersonal interactions appears functionally intact in deals appropriately with others. No signs of depression. No signs of anxiety. Course Vital Signs 03/09/18 03/09/18 18:56 19:08 Temperature 99.4 F Pulse Rate 86 76 Respiratory 18 18 Rate Blood Pressure 117/64 104/59 O2 Sat by Pulse 95 94 L Oximetry Medical Decision Making - Medical Decision Making EKG shows normal sinus rhythm at 70 bpm MN interval is 160 QRS 76 QT intervals 408 QTC is 465. Patient's EKG shows no ST segment elevation or depression or T wave abnormalities are noted Patient's lab work was normal however she still complained of abdominal pain though she was nontender on palpation. I'm going to admit the patient I spoke with the nurse practitioner for Dr. Wilson I admitted the patient wrote admitting orders I ordered the with all protocol. - Lab Data Result diagrams: 03/09/18 18:35 03/09/18 18:35 Lab Results 03/09/18 03/09/18 03/09/18 Range/Units 18:35 18:35 18:35 WBC 5.2 (3.8-10.6) k/uL RBC 3.86 (3.80-5.40) m/uL Hgb 13.3 (11.4-16.0) gm/dL Hct 38.5 (34.0-46.0) % MCV 99.9 (80.0-100.0) fL MCH 34.6 (25.0-35.0) pg MCHC 34.6 (31.0-37.0) g/dL RDW 13.6 (11.5-15.5) % Plt Count 173 (150-450) k/uL Neutrophils % 41 % Lymphocytes % 49 % Monocytes % 5 % Eosinophils % 1 % Basophils % 1 % Neutrophils # 2.1 (1.3-7.7) k/uL Lymphocytes # 2.6 (1.0-4.8) k/uL Monocytes # 0.3 (0-1.0) k/uL Eosinophils # 0.1 (0-0.7) k/uL Basophils # 0.0 (0-0.2) k/uL Sodium 138 (137-145) mmol/L Potassium 3.9 (3.5-5.1) mmol/L Chloride 105 (98-107) mmol/L Carbon Dioxide 23 (22-30) mmol/L Anion Gap 10 mmol/L BUN 8 (7-17) mg/dL Creatinine 0.71 (0.52-1.04) mg/dL Est GFR (CKD-EPI)AfAm >90 (>60 ml/min/1.73 sqM) Est GFR (CKD-EPI)NonAf >90 (>60 ml/min/1.73 sqM) Glucose 133 H (74-99) mg/dL Calcium 9.9 (8.4-10.2) mg/dL Total Bilirubin 0.4 (0.2-1.3) mg/dL AST 43 H (14-36) U/L ALT 48 (9-52) U/L Alkaline Phosphatase 46 (38-126) U/L Troponin I <0.012 (0.000-0.034) ng/mL Total Protein 6.9 (6.3-8.2) g/dL Albumin 4.1 (3.5-5.0) g/dL Amylase 61 (30-110) U/L Lipase 161 (23-300) U/L Serum Alcohol 255 mg/dL Disposition Clinical Impression: Alcohol intoxication, Abdominal pain Disposition: ADMITTED IP TO THIS HOSP Referrals: None,Stated [Primary Care Provider] - 1-2 days Time of Disposition: 19:55
[2018-03-09 19:12] LABS: Basophils % (A) 1 %; Eosinophils # (A) 0.1 k/uL (0-0.7); Eosinophils % (A) 1 %; HCT 38.5 % (34.0-46.0); HGB 13.3 gm/dL (11.4-16.0); Lymphocytes # (A) 2.6 k/uL (1.0-4.8); Lymphocytes % (A) 49 %; MCH 34.6 pg (25.0-35.0); MCHC 34.6 g/dL (31.0-37.0); MCV 99.9 fL (80.0-100.0); Mean Platelet Volume 6.8; Monocytes # (A) 0.3 k/uL (0-1.0); Monocytes % (A) 5 %; Neutrophils # (A) 2.1 k/uL (1.3-7.7); Neutrophils % (A) 41 %; Platelet Count 173 k/uL (150-450); RBC 3.86 m/uL (3.80-5.40); RDW 13.6 % (11.5-15.5); WBC 5.2 k/uL (3.8-10.6)
[2018-03-09 19:14] LABS: ALT 48 U/L (9-52); AST 43 U/L (14-36); Albumin 4.1 g/dL (3.5-5.0); Alkaline Phosphatase 46 U/L (38-126); Amylase 61 U/L (30-110); Anion Gap 10 mmol/L; Blood Urea Nitrogen 8 mg/dL (7-17); Calcium 9.9 mg/dL (8.4-10.2); Carbon Dioxide 23 mmol/L (22-30); Chloride 105 mmol/L (98-107); Glucose 133 mg/dL (74-99); Lipase 161 U/L (23-300); Potassium 3.9 mmol/L (3.5-5.1); Sodium 138 mmol/L (137-145); Total Bilirubin 0.4 mg/dL (0.2-1.3); Total Protein 6.9 g/dL (6.3-8.2)
[2018-03-09 19:29] LABS: Alcohol 255 mg/dL
[2018-03-09] MEDS ORDERED: SODIUM CHLORIDE 0.9% 1,000 ML with MVI, ADULT NO.4 WITH VIT K 10 ML, THIAMINE 100 MG, F... IV ONE ×4 (19:30)
--- NOTE | 2018-03-09 19:31 | XR ---
EXAMINATION TYPE: XR chest 2V DATE OF EXAM: 03/09/2018 COMPARISON: 09/12/2017 HISTORY: 57-year-old female with abdominal pain TECHNIQUE: PA and lateral views FINDINGS: Heart normal size. Aorta and pulmonary vasculature within normal limits. Strandy atelectasis in the l ower lungs. Mild diffuse interstitial prominence is chronic appearance. No consolidation or pleural e ffusion. Possible vague nodular density peripheral left upper lobe. IMPRESSION: Chronic changes without acute cardiopulmonary process. There is a possible vague nodule in the periph eral right upper lobe. Recommend nonemergent follow-up contrast enhanced CT chest to exclude underlyi ng pulmonary nodule.
[2018-03-09] MEDS ORDERED: LORazepam 2 MG/ML INJ IV PRN ×3 (19:58)
[2018-03-09] MEDS ORDERED: THIAMINE 100 MG/ML 2 ML VIAL IM STA (19:58)
[2018-03-09 21:04] LABS: Appearance,Urine Cloudy (Clear); Bacteria,Urine Moderate /hpf; Bilirubin,Urine Negative (Negative); Blood,Urine Negative (Negative); Budding Yeast,Urine Occasional /hpf; Color,Urine Light Yellow; Glucose,Urine (UA) Negative (Negative); Hyaline Casts,Urine 4 /lpf (0-2); Ketones,Urine Negative (Negative); Leukocyte Esterase,Urine Negative (Negative); Mucus,Urine Rare /hpf; Nitrite,Urine Negative (Negative); PH, Urine 5.5 (5.0-8.0); Protein,Urine Negative (Negative); RBC,Urine 1 /hpf (0-5); Specific Gravity,Urine 1.005 (1.001-1.035); Squamous Epithelial Cell,Urine 13 /hpf (0-4); Urobilinogen,Urine <2.0 mg/dL (<2.0); WBC,Urine 1 /hpf (0-5)
[2018-03-10] MEDS: THIAMINE 100 MG TAB PO SCH ×3 (00:24→17:23)
[2018-03-10] MEDS: ACETAMINOPHEN TAB 325 MG TAB PO PRN ×4 (03:46→21:46)
[2018-03-10] MEDS: KETOROLAC 30 MG/ML 1 ML VIAL IVP PRN ×2 (12:30→19:37)
--- NOTE | 2018-03-10 12:44 | P.HPIM ---
History of Present Illness 57-year-old pleasant female came in with complaints of a left lower chest pain and left upper abdominal pain sharp in nature 8/10 in severity nonradiating increases with deep breathing denied any shortness of breath is comparing of cough denied any fever chills unable to bring up anything when she is coughing up. Patient does smoke about considered per day and patient does drink alcohol on daily basis actually trying to cut down on alcohol has multiple hospitalizations to psychiatric floor. Patient believed she had pancreatitis although lipase is essentially within normal limits. Patient is Trying to cut down on drinking as well as smoking. Review of Systems REVIEW OF SYSTEMS: CONSTITUTIONAL: No fever, no malaise, no fatigue. HEENT: No recent visual problems or hearing problems. Denied any sore throat. CARDIOVASCULAR: No orthopnea, PND, no palpitations, no syncope. PULMONARY: No shortness of breath, no hemoptysis. GASTROINTESTINAL: No diarrhea, no nausea, no vomiting, no abdominal pain. Normoactive bowel sounds. NEUROLOGICAL: No headaches, no weakness, no numbness. HEMATOLOGICAL: Denies any bleeding or petechiae. GENITOURINARY: Denies any burning micturition, frequency, or urgency. MUSCULOSKELETAL/RHEUMATOLOGICAL: Denies any joint pain, swelling, or any muscle pain. ENDOCRINE: Denies any polyuria or polydipsia. The rest of the 14-point review of systems is negative. Past Medical History Past Medical History: Heart Failure, COPD, CVA/TIA, Diabetes Mellitus, GERD/ Reflux, GI Bleed, Hypertension, Liver Disease, Myocardial Infarction ([place]), Osteoarthritis (OA), Seizure Disorder, Sleep Apnea/CPAP/BIPAP Additional Past Medical History / Comment(s): Past alcohol withdrawal, chronic back pain, neuropathy of the lower extremities, R foot ulcer tx at wound center by Dr. Lubin-pt states is now healed, abddominal wound-tx at wound center, cva 2002 affected rt eye vision but resolved in 6 months and has numbness rt hand 4-5th fingers since.CVA in 2010 with numbness/tingling fingers and R leg weakness,pt stated she has has tia's as well. concussion from fall 2010, balance issues, UTIs, SZ history from etoh-yrs ago,. Neuropathy bilat feet Last Myocardial Infarction Date:: 2014 History of Any Multi-Drug Resistant Organisms: None Reported Date of last positivie culture/infection: None MDRO Source:: None Past Surgical History: Section, Hernia Repair Additional Past Surgical History / Comment(s): Ventral hernia repair x 4, 2 c- sections 1992, 1994, debridements of R foot and abdomin, colonoscopy, laparoscopy, seromas x 2 drained. Past Anesthesia/Blood Transfusion Reactions: No Reported Reaction Smoking Status: Current every day smoker - Past Family History Father Additional Family Medical History / Comment(s): Father is alive at age 75 with no major medical problems. Mother Family Medical History: Cancer Additional Family Medical History / Comment(s): Mother at age 65 from breast cancer/bone. Brother(s) Additional Family Medical History / Comment(s): Patient has 1 brother that from a motor vehicle accident involving alcohol. Patient has no sisters. Patient has 1 son 21 years old and one daughter 23 years old and she has no contact with her children. Medications and Allergies Home Medications Medication Instructions Recorded Confirmed Type Losartan Potassium 100 mg PO DAILY 10/20/17 03/09/18 History Aspirin 81 mg PO DAILY chew 10/29/17 03/09/18 Rx Atorvastatin [Lipitor] 40 mg PO HS #30 tab 10/29/17 03/09/18 Rx Hydrochlorothiazide [Hydrodiuril] 25 mg PO DAILY #30 tab 10/29/17 03/09/18 Rx Sertraline [Zoloft] 50 mg PO HS #30 tab 10/29/17 03/09/18 Rx metFORMIN HCL [Glucophage] 500 mg PO BID-W/MEALS #30 tab 10/29/17 03/09/18 Rx traZODone HCL [Desyrel] 100 mg PO HS #30 tab 10/29/17 03/09/18 Rx Furosemide [Lasix] 20 mg PO DAILY 03/09/18 03/09/18 History Magnesium Oxide 400 mg PO BID 03/09/18 03/09/18 History amLODIPine BESYLATE [Norvasc] 10 mg PO DAILY 03/09/18 03/09/18 History Allergies Allergy/AdvReac Type Severity Reaction Status Date / Time Iodinated Contrast- Oral and Allergy Unknown Verified 10/20/17 19:57 IV Dye [Iodinated Contrast Media - IV Dye] levofloxacin [From Levaquin] Allergy Anaphylaxis Verified 10/20/17 19:57 pregabalin [From Lyrica] Allergy Nausea & Verified 10/20/17 19:57 Vomiting Physical Exam Vitals: Vital Signs Temp Pulse Pulse Resp BP BP Pulse Ox 03/10/18 08:32 17 03/10/18 07:52 98.7 F 102 H 17 156/76 94 L 03/10/18 00:10 97.5 F L 82 17 104/65 92 L 03/09/18 21:04 97.7 F 78 16 123/70 94 L 03/09/18 20:23 78 18 138/58 95 03/09/18 19:08 76 18 104/59 94 L 03/09/18 18:56 99.4 F 86 18 117/64 95 Intake and Output 03/09/18 03/10/18 03/10/18 22:59 06:59 14:59 Intake Total 150 1000 Balance 150 1000 Intake: Intake, IV Titration 150 1000 Amount Sodium Chloride 0.9% 1, 150 1000 000 ml @ 100 mls/hr IV . Q10H7M ONE with Mvi, Adult No.4 with Vit K 10 ml with Thiamine 100 mg with Folic Acid 1 mg Rx#: [id number] Other: Voiding Method Toilet # Voids 1 2 1 Weight 95.254 kg PHYSICAL EXAMINATION: GENERAL: The patient is alert and oriented x3, not in any acute distress. Well developed, well nourished. Pale looking HEENT: Pupils are round and equally reacting to light. EOMI. No scleral icterus. No conjunctival pallor. Normocephalic, atraumatic. No pharyngeal erythema. No thyromegaly. CARDIOVASCULAR: S1 and S2 present. No murmurs, rubs, or gallops. PULMONARY: Chest is clear to auscultation, no wheezing or crackles. ABDOMEN: Soft, nontender, nondistended, normoactive bowel sounds. No palpable organomegaly. MUSCULOSKELETAL: No joint swelling or deformity. EXTREMITIES: No cyanosis, clubbing, or pedal edema. NEUROLOGICAL: Gross neurological examination did not reveal any focal deficits. SKIN: No rashes. Results CBC & Chem 7: 03/09/18 18:35 03/09/18 18:35 Labs: Abnormal Lab Results - Last 24 Hours (Table) 03/09/18 03/09/18 Range/Units 18:35 19:49 Glucose 133 H (74-99) mg/dL AST 43 H (14-36) U/L Urine Appearance Cloudy H (Clear) Ur Squamous Epith Cells 13 H (0-4) /hpf Urine Bacteria Moderate H (None) /hpf Hyaline Casts 4 H (0-2) /lpf Urine Mucus Rare H (None) /hpf Urine Yeast (Budding) Occasional H (None) /hpf Thrombosis Risk Factor Assmnt - Choose All That Apply Any of the Below Risk Factors Present?: Yes Each Factor Represents 1 point: Age 41-60 years, Obesity (BMI >25) Thrombosis Risk Factor Assessment Total Risk Factor Score: 2 Thrombosis Risk Factor Assessment Level: Low Risk Assessment and Plan Plan: -Chest pain: Pruritic in nature I'll obtain a chest x-ray and a d-dimer if d- dimer is positive we'll obtain a CT of the chest rule out pulmonary embolism. If d-dimer is negative patient may need an abdominal CAT scan. We will start her on Toradol continue with IV fluids and started on Protonix. -Alcohol abuse: Counseling was provided Alcohol withdrawal patient will be on CIWA protocol, IV fluids thiamine multivitamin supplementation. -Type 2 diabetes mellitus patient will be on sliding scale insulin -Hypertension with mild tachycardia will also obtain TSH levels, patient will be started on metoprolol we are ruling out pulmonary embolism as well which may be contributing to her tachycardia. -Possible alcoholic gastritis: Patient was started on proton pump inhibitor -Depression continue annual with the antidepressants -Hyperlipidemia continue with Lipitor
[2018-03-10 12:49] LABS: Basophils % (A) 0 %; Eosinophils % (A) 1 %; HCT 38.4 % (34.0-46.0); HGB 12.8 gm/dL (11.4-16.0); Lymphocytes # (A) 1.3 k/uL (1.0-4.8); Lymphocytes % (A) 25 %; MCH 33.5 pg (25.0-35.0); MCHC 33.3 g/dL (31.0-37.0); MCV 100.7 fL (80.0-100.0); Macrocytosis Slight; Monocytes # (A) 0.2 k/uL (0-1.0); Monocytes % (A) 4 %; Neutrophils # (A) 3.5 k/uL (1.3-7.7); Neutrophils % (A) 69 %; Platelet Count 176 k/uL (150-450); RBC 3.81 m/uL (3.80-5.40); RDW 13.5 % (11.5-15.5)
[2018-03-10] MEDS ORDERED: IOPAMIDOL-300 CONTRAST 30 ML VIAL (ORAL USE) PO PRN (13:20)
[2018-03-10] MEDS ORDERED: FAMOTIDINE 20 MG/2 ML VIAL IV ONE (13:43)
[2018-03-10] MEDS ORDERED: diphenhydrAMINE 50 MG/ML 1 ML VIAL IVP ONE (13:43)
[2018-03-10] MEDS ORDERED: methylPREDNISolone SOD SUCCI 125 MG/2 ML VIAL IV ONE (13:43)
[2018-03-10] MEDS: METOPROLOL TARTRATE 25 MG TAB PO SCH ×2 (14:26→21:46)
[2018-03-10] MEDS: PANTOPRAZOLE 40 MG TABLET PO SCH (14:26)
--- NOTE | 2018-03-10 16:37 | XR ---
EXAMINATION TYPE: XR ribs bilat w pa chest xray DATE OF EXAM: 03/10/2018 COMPARISON: NONE HISTORY: Left rib pain TECHNIQUE: 9 views FINDINGS: Heart and mediastinum are normal. Lungs are clear. There is no sign of pleural effusion or pneumothorax. There is nondisplaced fracture left fifth rib the right ribs appear intact. IMPRESSION: No cardiopulmonary disease. Acute fracture left fifth rib.
--- NOTE | 2018-03-10 19:00 | CT ---
EXAMINATION TYPE: CT abdomen w con DATE OF EXAM: 03/10/2018 COMPARISON: 10/29/2015 HISTORY: Abdominal pain CT DLP: mGycm Automated exposure control for dose reduction was used. TECHNIQUE: Helical acquisition of images was performed from the lung bases through the top of iliac crest to include entire abdomen. CONTRAST: Performed and , patient injected with 100 mL of . FINDINGS: There is subsegmental atelectasis at the right posterior lung base. There is no pleural effusion. Hea rt size is normal. There is no pericardial effusion. There is 5 mm calcified granuloma in the superior right lobe of the liver. Bile ducts are not dilated . Spleen appears normal. There is no pancreatic mass. There are multiple small calcified gallstones. Bile ducts are not dilated. There is no adrenal mass. Kidneys show satisfactory contrast opacification. There is no hydronephrosi s. There is a 2 cm cyst in the posterior left kidney. There is no retroperitoneal adenopathy. There i s previous anterior abdominal wall surgery. I see no intestinal wall thickening. There are no dilated loops. Appendix appears normal. There is no sign of ascites. IMPRESSION: SMALL LEFT RENAL CORTICAL CYST UNCHANGED. CALCIFIED GALLSTONES UNCHANGED. OLD GRANULOMATOUS DISEASE. PREVIOUS SURGERY. NORMAL APPENDIX. NO SIGN OF ACUTE ABDOMEN AND PELVIS.
[2018-03-10] MEDS ORDERED: SERTRALINE 50 MG TAB PO SCH (21:00)
[2018-03-10] MEDS ORDERED: ATORVASTATIN 40 MG TAB PO SCH (21:00)
[2018-03-10] MEDS: MAGNESIUM OXIDE 400 MG TAB PO SCH (21:46)
[2018-03-10] MEDS ORDERED: traZODone HCL 100 MG TAB PO SCH (22:00)
[2018-03-11] MEDS: KETOROLAC 30 MG/ML 1 ML VIAL IVP PRN ×2 (02:34→08:38)
[2018-03-11] MEDS: ACETAMINOPHEN TAB 325 MG TAB PO PRN ×2 (04:05→12:16)
[2018-03-11 07:23] LABS: ALT 44 U/L (9-52); AST 34 U/L (14-36); Albumin 4.4 g/dL (3.5-5.0); Alkaline Phosphatase 52 U/L (38-126); Anion Gap 9 mmol/L; Blood Urea Nitrogen 9 mg/dL (7-17); Calcium 9.2 mg/dL (8.4-10.2); Carbon Dioxide 23 mmol/L (22-30); Chloride 105 mmol/L (98-107); Glucose 205 mg/dL (74-99); Potassium 4.4 mmol/L (3.5-5.1); Sodium 137 mmol/L (137-145); Total Bilirubin 0.7 mg/dL (0.2-1.3); Total Protein 7.7 g/dL (6.3-8.2)
[2018-03-11] MEDS: MAGNESIUM OXIDE 400 MG TAB PO SCH (08:39)
[2018-03-11] MEDS: METOPROLOL TARTRATE 25 MG TAB PO SCH (08:39)
[2018-03-11] MEDS: PANTOPRAZOLE 40 MG TABLET PO SCH (08:40)
[2018-03-11] MEDS ORDERED: ASPIRIN 81 MG PO SCH (09:00)
[2018-03-11] MEDS: THIAMINE 100 MG TAB PO SCH (12:16)
--- NOTE | 2018-03-11 12:29 | P.DS ---
Providers Date of admission: 03/09/18 19:57 Expected date of discharge: 03/11/18 Attending physician: Israel Monge Primary care physician: Stated None [facility] Hospital Course: Final Diagnoses: -Chest pain secondary to acute nondisplaced fracture left fifth rib. -Alcohol abuse: Counseling was provided Alcohol withdrawal, resolved. -Type 2 diabetes mellitus -Hypertension with mild tachycardia,started on metoprolol -Possible alcoholic gastritis -Depression -Hyperlipidemia -small left renal cortical cyst unchanged -calcified gallstones unchanged -5mm calcified granuloma right liver lobe Hospital course:57-year-old pleasant female came in with complaints of a left lower chest pain and left upper abdominal pain sharp in nature 8/10 in severity nonradiating increases with deep breathing denied any shortness of breath is comparing of cough denied any fever chills unable to bring up anything when she is coughing up. Patient does smoke about considered per day and patient does drink alcohol on daily basis actually trying to cut down on alcohol has multiple hospitalizations to psychiatric floor. Patient believed she had pancreatitis although lipase is essentially within normal limits. Patient is Trying to cut down on drinking as well as smoking. Maintained on IV fluid hydration, PPI, thiamine, multivitamin supplementation, CIWA protocol and Toradol. D-dimer 0.30 .Chest x-ray reporting acute nondisplaced fracture left fifth rib, no pleural effusion, no pneumothorax. Abdominal x-ray reported no acute abdomen and pelvis; small left renal cortical cyst unchanged, calcified gallstones unchanged old granulomatous disease. Significant clinical improvement. Patient is being discharged home in a stable condition with guarded prognosis. EXAMINATION: GENERAL: The patient is alert and oriented x3, not in any acute distress. CARDIOVASCULAR: S1 and S2 present. No murmurs, rubs, or gallops. PULMONARY: Chest is clear to auscultation, no wheezing or crackles. ABDOMEN: Soft, nontender, nondistended, normoactive bowel sounds. EXTREMITIES: No cyanosis, clubbing, or pedal edema. NEUROLOGICAL: Gross neurological examination did not reveal any focal deficits. The impression and plan of care has been dictated as directed. : I performed a history and examination of this patient, discussed the same with the dictator. I agree with the dictator's note ,documented as a scribe. Any additional findings or plans will be noted. Time taken: 35 minutes Patient Condition at Discharge: Stable Plan - Discharge Summary Discharge Rx Participant: Yes New Discharge Prescriptions: New Acetaminophen Tab [Tylenol] 650 mg PO Q6HR PRN tab PRN Reason: Fever And/ Or Pain Folic Acid 1 mg PO DAILY@1200 #30 tablet Metoprolol Tartrate [Lopressor] 25 mg PO BID #60 tab Multivitamins, Thera [Multivitamin (formulary)] 1 tab PO DAILY@1200 #30 tablet Ranitidine HCl [Zantac] 150 mg PO BID #60 tab Thiamine [Vitamin B-1] 100 mg PO DAILY@1200 #30 tab Ibuprofen 400 mg PO Q8H PRN #1 capsule PRN Reason: Pain Continue Aspirin 81 mg PO DAILY chew Atorvastatin [Lipitor] 40 mg PO HS #30 tab metFORMIN HCL [Glucophage] 500 mg PO BID-W/MEALS #30 tab Sertraline [Zoloft] 50 mg PO HS #30 tab traZODone HCL [Desyrel] 100 mg PO HS #30 tab Furosemide [Lasix] 20 mg PO DAILY Magnesium Oxide 400 mg PO BID Discontinued Losartan Potassium 100 mg PO DAILY Hydrochlorothiazide [Hydrodiuril] 25 mg PO DAILY #30 tab amLODIPine BESYLATE [Norvasc] 10 mg PO DAILY Discharge Medication List Aspirin 81 mg PO DAILY chew 10/29/17 [Rx] Atorvastatin [Lipitor] 40 mg PO HS #30 tab 10/29/17 [Rx] Sertraline [Zoloft] 50 mg PO HS #30 tab 10/29/17 [Rx] metFORMIN HCL [Glucophage] 500 mg PO BID-W/MEALS #30 tab 10/29/17 [Rx] traZODone HCL [Desyrel] 100 mg PO HS #30 tab 10/29/17 [Rx] Furosemide [Lasix] 20 mg PO DAILY 03/09/18 [History] Magnesium Oxide 400 mg PO BID 03/09/18 [History] Acetaminophen Tab [Tylenol] 650 mg PO Q6HR PRN tab 03/11/18 [Rx] Folic Acid 1 mg PO DAILY@1200 #30 tablet 03/11/18 [Rx] Ibuprofen 400 mg PO Q8H PRN #1 capsule 03/11/18 [Rx] Metoprolol Tartrate [Lopressor] 25 mg PO BID #60 tab 03/11/18 [Rx] Multivitamins, Thera [Multivitamin (formulary)] 1 tab PO DAILY@1200 #30 tablet 03/11/18 [Rx] Ranitidine HCl [Zantac] 150 mg PO BID #60 tab 03/11/18 [Rx] Thiamine [Vitamin B-1] 100 mg PO DAILY@1200 #30 tab 03/11/18 [Rx] Follow up Appointment(s)/Referral(s): Alfredo Thakkar MD [STAFF PHYSICIAN] - 1 Week Ambulatory/Diagnostic Orders: Complete Blood Count w/diff [LAB.AMB] Time Frame: 3 Days, Location: None Selected Activity/Diet/Wound Care/Special Instructions: tylenol or ibuprofen as discussed for pleuritic pain. Alcohol cessation reinforced
[2018-03-11 15:12] VITALS: BP 149/82; PULSE 79; RESP 16; TEMP 98.2
== END 2018-03-11 15:50 ==
LOC: EC 18:51 → 3SUR 19:57
PROVIDERS: ADMIT Hospitalist; ATTEND Hospitalist
DX: S22.32XA Fracture of one rib, left side, initial encounter for closed fracture (principal); F10.229 Alcohol dependence with intoxication, unspecified; F10.239 Alcohol dependence with withdrawal, unspecified; J44.9 Chronic obstructive pulmonary disease, unspecified; E11.42 Type 2 diabetes mellitus with diabetic polyneuropathy; I11.0 Hypertensive heart disease with heart failure; I50.9 Heart failure, unspecified; G40.909 Epilepsy, unspecified, not intractable, without status epilepticus; K21.9 Gastro-esophageal reflux disease without esophagitis; N28.1 Cyst of kidney, acquired; K80.20 Calculus of gallbladder without cholecystitis without obstruction; K75.3 Granulomatous hepatitis, not elsewhere classified; E66.9 Obesity, unspecified; Z68.33 Body mass index [BMI] 33.0-33.9, adult; M19.90 Unspecified osteoarthritis, unspecified site; G89.29 Other chronic pain; M54.9 Dorsalgia, unspecified; G47.30 Sleep apnea, unspecified; Z99.89 Dependence on other enabling machines and devices; F17.200 Nicotine dependence, unspecified, uncomplicated; F31.9 Bipolar disorder, unspecified; F41.9 Anxiety disorder, unspecified; E78.5 Hyperlipidemia, unspecified; V84.9XXA Unspecified occupant of special agricultural vehicle injured in nontraffic accident, initial encounter; Z79.82 Long term (current) use of aspirin; Z79.84 Long term (current) use of oral hypoglycemic drugs; Z79.899 Other long term (current) drug therapy; Z88.8 Allergy status to other drugs, medicaments and biological substances; Z88.1 Allergy status to other antibiotic agents; Z91.041 Radiographic dye allergy status; I25.2 Old myocardial infarction; Z87.19 Personal history of other diseases of the digestive system; Z87.820 Personal history of traumatic brain injury; Z87.440 Personal history of urinary (tract) infections; Z80.3 Family history of malignant neoplasm of breast; Z80.8 Family history of malignant neoplasm of other organs or systems
CPT/HCPCS: 96365 ×2; 96375 ×3; 99285 ×2; 96376 ×2; 96366 ×2; 36415; 93005; 85379; 80053 ×2; 82150; 83690; 83735; 84484; 85025 ×2; 81001; 71111; 71046; 74160; G0378 ×3; G0480; J2060; J1200; J2930; J3411; J1885 ×2; Q9967; 80320

== ENCOUNTER 2018-04-15 20:09 | Emergency (ER) | payer MEDICARE ==
[2018-04-15 20:15] VITALS: RESP 20
--- NOTE | 2018-04-15 20:28 | ED ---
General Adult HPI - General Chief complaint: Extremity Injury, Lower Stated complaint: Ankle pain Time Seen by Provider: 04/15/18 20:15 Source: patient, EMS, RN notes reviewed Mode of arrival: EMS Limitations: no limitations - History of Present Illness Initial comments: This is a 57-year-old female who comes in any of left ankle pain. Patient states she twisted her ankle earlier tonight and now she cannot ambulate on it. Patient denies any knee pain or hip pain. Patient denies any other injury. Patient denies any head injury or neck injury. Patient denies numbness weakness. Patient denies any back pain patient denies any other extremity injury or pain. - Related Data Home Medications Medication Instructions Recorded Confirmed Furosemide [Lasix] 20 mg PO DAILY 03/09/18 03/09/18 Magnesium Oxide 400 mg PO BID 03/09/18 03/09/18 Previous Rx's Medication Instructions Recorded Aspirin 81 mg PO DAILY chew 10/29/17 Atorvastatin [Lipitor] 40 mg PO HS #30 tab 10/29/17 Sertraline [Zoloft] 50 mg PO HS #30 tab 10/29/17 metFORMIN HCL [Glucophage] 500 mg PO BID-W/MEALS #30 tab 10/29/17 traZODone HCL [Desyrel] 100 mg PO HS #30 tab 10/29/17 Acetaminophen Tab [Tylenol] 650 mg PO Q6HR PRN tab 03/11/18 Folic Acid 1 mg PO DAILY@1200 #30 tablet 03/11/18 Ibuprofen 400 mg PO Q8H PRN #1 capsule 03/11/18 Metoprolol Tartrate [Lopressor] 25 mg PO BID #60 tab 03/11/18 Multivitamins, Thera [Multivitamin 1 tab PO DAILY@1200 #30 tablet 03/11/18 (formulary)] Ranitidine HCl [Zantac] 150 mg PO BID #60 tab 03/11/18 Thiamine [Vitamin B-1] 100 mg PO DAILY@1200 #30 tab 03/11/18 Allergies Allergy/AdvReac Type Severity Reaction Status Date / Time Iodinated Contrast- Oral and Allergy Unknown Verified 10/20/17 19:57 IV Dye [Iodinated Contrast Media - IV Dye] levofloxacin [From Levaquin] Allergy Anaphylaxis Verified 10/20/17 19:57 pregabalin [From Lyrica] Allergy Nausea & Verified 10/20/17 19:57 Vomiting Review of Systems ROS Statement: Those systems with pertinent positive or pertinent negative responses have been documented in the HPI. ROS Other: All systems not noted in ROS Statement are negative. Past Medical History Past Medical History: Heart Failure, COPD, CVA/TIA, Diabetes Mellitus, GERD/ Reflux, GI Bleed, Hypertension, Liver Disease, Myocardial Infarction (AR), Osteoarthritis (OA), Seizure Disorder, Sleep Apnea/CPAP/BIPAP Additional Past Medical History / Comment(s): Past alcohol withdrawal, chronic back pain, neuropathy of the lower extremities, R foot ulcer tx at wound center by Dr. Lubin-pt states is now healed, abddominal wound-tx at wound center, cva 2002 affected rt eye vision but resolved in 6 months and has numbness rt hand 4-5th fingers since.CVA in 2010 with numbness/tingling fingers and R leg weakness,pt stated she has has tia's as well. concussion from fall 2010, balance issues, UTIs, SZ history from etoh-yrs ago,. Neuropathy bilat feet Last Myocardial Infarction Date:: 2014 History of Any Multi-Drug Resistant Organisms: None Reported Date of last positivie culture/infection: None MDRO Source:: None Past Surgical History: Section, Hernia Repair Additional Past Surgical History / Comment(s): Ventral hernia repair x 4, 2 c- sections 1992, 1994, debridements of R foot and abdomin, colonoscopy, laparoscopy, seromas x 2 drained. Past Anesthesia/Blood Transfusion Reactions: No Reported Reaction Past Psychological History: Anxiety, Bipolar, Depression Smoking Status: Current every day smoker Past Alcohol Use History: Abuse, Daily, Heavy Past Drug Use History: None Reported - Past Family History Father Additional Family Medical History / Comment(s): Father is alive at age 75 with no major medical problems. Mother Family Medical History: Cancer Additional Family Medical History / Comment(s): Mother at age 65 from breast cancer/bone. Brother(s) Additional Family Medical History / Comment(s): Patient has 1 brother that from a motor vehicle accident involving alcohol. Patient has no sisters. Patient has 1 son 21 years old and one daughter 23 years old and she has no contact with her children. General Exam - General Exam Comments Initial Comments: GENERAL Patient is well-developed and well-nourished. Patient is in mild distress. EYES Patient's pupils are equal and round. Extraocular motion is intact SKIN Unremarkable NEURO The patient is alert and oriented 3 PYSCH Patient has normal interpersonal interactions. MUSCULOSKELETAL Left ankle is tender in the lateral malleolus and swollen. Limitations: no limitations Course Vital Signs 04/15/18 20:11 Temperature 98.3 F Pulse Rate 70 Respiratory 20 Rate Blood Pressure 131/56 O2 Sat by Pulse 96 Oximetry Procedures - Orthopedic Splinting/Casting Injury #1 Side: left Lower Extremity Injury Location: short leg Lower Extremity Immobilizer: posterior splint Medical Decision Making - Medical Decision Making Patient's x-ray shows a bimalleolar fracture. Splint was applied Disposition Clinical Impression: Bimalleolar fracture Disposition: HOME SELF-CARE Instructions: Ankle Fracture (ED) Additional Instructions: Patient needs to get crutches so she applies no way to the splint. Patient is to follow-up with orthopedics. Is patient prescribed a controlled substance at d/c from ED?: No Referrals: Alfredo Thakkar MD [Primary Care Provider] - 1-2 days Skyler Mcdaniels MD [STAFF PHYSICIAN] - 1-2 days Time of Disposition: 21:11
--- NOTE | 2018-04-15 20:43 | XR ---
EXAMINATION TYPE: XR ankle complete LT DATE OF EXAM: 04/15/2018 COMPARISON: NONE HISTORY: Fall. Ankle pain TECHNIQUE: 3 views FINDINGS: There is transverse fracture of the medial malleolus. There is oblique fracture distal fibu la. Talus shows slight lateral subluxation of 4 mm. There is a plantar calcaneal spur. There is no di slocation. There is soft tissue swelling around the ankle joint. IMPRESSION: Bimalleolar fracture of the ankle with soft tissue swelling.
[2018-04-15 22:17] VITALS: BP 135/67; PULSE 85; TEMP 98
== END 2018-04-15 22:00 | disposition home or self-care (01) ==
LOC: EC 20:09
DX: S82.842A Displaced bimalleolar fracture of left lower leg, initial encounter for closed fracture (principal); I11.0 Hypertensive heart disease with heart failure; I50.9 Heart failure, unspecified; G47.30 Sleep apnea, unspecified; F17.200 Nicotine dependence, unspecified, uncomplicated; Z88.1 Allergy status to other antibiotic agents; Z88.8 Allergy status to other drugs, medicaments and biological substances; Z91.041 Radiographic dye allergy status; Z79.899 Other long term (current) drug therapy; Z99.89 Dependence on other enabling machines and devices; X50.1XXA Overexertion from prolonged static or awkward postures, initial encounter; Y92.89 Other specified places as the place of occurrence of the external cause
CPT/HCPCS: 99283

== ENCOUNTER 2018-04-23 12:00 | Inpatient (IN) | payer MEDICARE ==
[2018-04-19 12:34] VITALS: BMI 34.4
[2018-04-23] MEDS: LACTATED RINGERS 1,000 ML IV SCH (11:10)
[~2018-04-23 12:00] MED LIST: DEXAMETHASONE SOD PHOSPHATE 10 MG/ML 1 ML VIAL IV ONE; LIDOCAINE 1% 20 ML VIAL (10MG/ML) FOR IV START INTRADERMA PRN; ONDANSETRON 4 MG/2 ML VIAL IVP PRN; SCOPOLAMINE 1.5MG/72HR PATCH TRANSDERM ONE; ceFAZolin IN SWFI 2 GM/20 ML SYRINGE IVP ONE
[2018-04-23] MEDS ORDERED: BUPIVACAINE-EPI 0.5%-1:200,000 10 ML VIAL SQ ONE (13:25)
[2018-04-23] MEDS ORDERED: ceFAZolin 1,000 MG in SODIUM CHLORIDE 0.9% 1,000 ML IRRIGATION ONE (13:26)
[2018-04-23] MEDS ORDERED: LACTATED RINGERS 1,000 ML IV ONE (13:57)
[2018-04-23] MEDS ORDERED: SENNOSIDES-DOCUSATE SODIUM 1 EACH TAB PO PRN (14:49)
[2018-04-23] MEDS ORDERED: TEMAZEPAM 15 MG CAP PO PRN (14:49)
[2018-04-23] MEDS ORDERED: HYDROmorphone 1 MG/ML 1 ML SYRINGE IVP PRN ×2 (14:49)
[2018-04-23] MEDS ORDERED: HYDROcodone/APAP 5-325MG 1 EACH TAB PO PRN ×2 (14:49)
[2018-04-23] MEDS ORDERED: diphenhydrAMINE 25 MG CAP PO PRN (14:49)
--- NOTE | 2018-04-23 14:50 | XR ---
EXAMINATION TYPE: XR ankle limited LT DATE OF EXAM: 04/23/2018 COMPARISON: NONE HISTORY: Postop TECHNIQUE: Two view submitted FINDINGS: Postsurgical changes appear in near-anatomic alignment. IMPRESSION: Postsurgical change
--- NOTE | 2018-04-23 14:53 | FL ---
EXAMINATION TYPE: FL guidance operating room DATE OF EXAM: 04/23/2018 HISTORY: Flouroscopy time 8 seconds of fluoroscopy provided. IMPRESSION: 1. Fluoroscopy time.
[2018-04-23] MEDS: HYDROmorphone 0.5 MG/0.5 ML SYRINGE IVP PRN ×5 (15:11→16:14)
[2018-04-23] MEDS ORDERED: diphenhydrAMINE 50 MG/ML 1 ML VIAL IVP ONE (15:17)
[2018-04-23] MEDS: ONDANSETRON 4 MG/2 ML VIAL IVP PRN (15:33)
[2018-04-23] MEDS: MEPERIDINE 50 MG/ML SYRINGE IVP ONE ×2 (16:08→16:16)
--- NOTE | 2018-04-23 17:53 | P.OP ---
Date of Procedure: 04/23/18 Procedure(s) Performed: PREOPERATIVE DIAGNOSES: 1. Left ankle lateral and medial malleolus fracture, Stacy B bimalleolar fracture POSTOPERATIVE DIAGNOSES: 1. Left ankle lateral and medial malleolus fracture PROCEDURES PERFORMED: 1. Left ankle lateral malleolus fracture open reduction and internal fixation. 2. Left ankle medial malleolus fracture open reduction and internal fixation ANESTHESIA: pharmacovigilance scientist: Lulu Lucas PA-C (assistance with exposure, hemostasis, retraction, fixation, closure, dressing, splint) COMPLICATIONS: None ESTIMATED BLOOD LOSS: Less than 10 mL. TOURNIQUET: approximately 70 minutes DISPOSITION: To post-anesthesia care unit INDICATIONS: The patient is a 57 year old female with a history of left ankle fracture approximately to weeks ago, who presents to the operating room today for fixation of ankle fracture. The fracture is a bimalleolar fracture, with a fracture of the lateral malleolus that is high enough to produce talar instability. I have discussed these issues with the patient, who wishes to proceed with the operative plan. I have explained the details of this surgery thoroughly and also explained the potential risks and complications. These are inclusive of, but not limited to: bleeding, infection, scarring, discomfort, blood vessel and nerve damage, stiffness, weakness, need for further surgery, failure to relieve symptoms, persistence or worsening of problems, , and other risks. The patient is aware of these risks and agrees to proceed with surgery. The consent form has been signed. PROCEDURE: After appropriate consent was obtained, the patient was taken to the operating room and placed supine on the operating table. General anesthesia was initiated. The ankle was removed from the splint and examined and manipulated under fluoroscopic examination with a mini-C-arm device. The ankle was noted to be unstable, as evidenced by lateral talar shift of approximately 2 mm with external rotation force on the foot. The lateral malleolus fracture was also noted to be displaced by 2-3 mm on the lateral view, especially. The limb was prepped and draped in the usual aseptic fashion with DuraPrep, and the patient was given IV antibiotics. The tourniquet was then inflated to 350 mmHg after careful exsanguination of the limb. Time out was called, confirming patient identity, side, procedure, and administration of antibiotics. Incision was created laterally, centered over the fracture site, for a length of approximately 4 inches. The incision was carried down through skin and into subcutaneous tissues, and blunt dissection then proceeded down to fascia. Fascia was split in line with the incision and the peroneal muscles were retracted posteriorly. The fracture site was exposed with subperiosteal dissection for as much exposure of the bone as was necessary. Fracture hematoma was evacuated and the interior of the fracture site was meticulously cleansed with irrigation and manual extraction of organizing hematoma and bone debris. The fracture was minimally comminuted and oblique in orientation. The fracture was mobilized using a valles elevator and reduction was accomplished using a bone clamp, which was also used to secure the fracture. Anatomic reduction was accomplished. An interfragmentary screw was not able to be placed secondary to comminution at the fracture site. Next, a precontoured fibular plate from [employer] was selected for size and side. The proximal holes were filled with 3 fully threaded 3.5 mm cortical screws with bicortical purchase. Distal holes were filled with 4 2.7 mm locking screws. No evidence of joint penetration on the mini-C-arm views was noted. Next, the medial malleolus was evaluated and treated. An incision was created for approximately 2 inches on the medial aspect of the ankle, and carried down through skin sharply and then bluntly using a dissecting scissor down to fascia and periosteum. The fracture fragment was able to be mobilized and secured with a [id number] reduction forceps. Subsequently, a guidepin was placed across the fracture site and several adjustments were made of this guidepin so that the position was perfect on C-arm imaging. The outer cortex was reamed, and appropriately sized 4.0 cannulated cancellus screw(s) with long threads were inserted over the guidepin until they were fully deployed. Final C-arm images were then taken, showing anatomic alignment of the mortise and medial malleolar fracture site. The fracture was noted to be in anatomic position and stress testing under C- arm imaging showed no significant migration, shift, or tilt of the talus with external rotation stress, hindfoot inversion or eversion. Screw lengths were noted to be appropriate and the incision was then irrigated thoroughly using normal saline. Tourniquet was deflated and hemostasis was obtained using electrocautery. Fascial closure was performed with 0-Vicryl suture, subcutaneous closure with 2-0 Vicryl suture. Skin was closed with 3-0 Monocryl running subcuticular suture and Dermabond adhesive. Sterile dressing was applied and well padded, well molded short leg splint was applied with the ankle in neutral. Patient tolerated the procedure well and taken to recovery room in stable condition. Sponge and needle counts were correct.
--- NOTE | 2018-04-23 18:29 | P.ONQ ---
Anesthesiology Proc Note - PNB - Peripheral Nerve Block Performed Left Adductor Canal Single Time Out Performed: Yes Procedure Start Time: 16:32 Procedure Stop Time: 16:50 Indication: Acute Post-Operative Pain Sedation Type: Awake Preparation: Sterile Prep Position: Supine Needle Types: Other (see comment) (pujunk) Needle Size: 100mm (4") Needle Gauge: 21 Technique: Ultrasound Injectate: Other (see comment) (bupivacaine 0,5% 20 ml with epi 1/200 k) Blood Aspirated: No Pain Paresthesia on Injection Noted: No Resistance on Injection: Normal Events: Uneventful and Well Tolerated
[2018-04-23] MEDS: SERTRALINE 50 MG TAB PO SCH (20:06)
[2018-04-23] MEDS: MAGNESIUM OXIDE 400 MG TAB PO SCH (20:07)
[2018-04-23] MEDS: ASPIRIN 325 MG TAB PO SCH (20:07)
[2018-04-23] MEDS: ceFAZolin IN SWFI 2 GM/20 ML SYRINGE IVP SCH (20:07)
[2018-04-23] MEDS: HYDROmorphone 1 MG/ML 1 ML SYRINGE IVP PRN (22:10)
[2018-04-23] MEDS: traZODone HCL 100 MG TAB PO SCH (23:09)
[2018-04-24] MEDS: HYDROmorphone 1 MG/ML 1 ML SYRINGE IVP PRN ×2 (02:06→15:29)
[2018-04-24] MEDS: ceFAZolin IN SWFI 2 GM/20 ML SYRINGE IVP SCH (04:38)
[2018-04-24] MEDS: hydrOXYzine PAMOATE 25 MG CAP PO PRN ×3 (04:47→21:24)
[2018-04-24] MEDS: diphenhydrAMINE 25 MG CAP PO PRN ×2 (05:13→17:02)
[2018-04-24] MEDS: LACTATED RINGERS 1,000 ML IV SCH (05:44)
[2018-04-24] MEDS: LOSARTAN 50 MG TAB PO SCH (08:11)
[2018-04-24] MEDS: ASPIRIN 325 MG TAB PO SCH ×2 (08:11→21:24)
[2018-04-24] MEDS: MULTIVITAMINS, THERA 1 EACH TAB PO SCH (08:11)
[2018-04-24] MEDS: MAGNESIUM OXIDE 400 MG TAB PO SCH ×2 (08:12→21:24)
--- NOTE | 2018-04-24 08:47 | P.PN ---
Subjective Progress Note Date: 04/24/18 Principal diagnosis: Status post-ORIF left ankle This is a 57 year-old female post ORIF left bimalleolar fracture. This is post- op day 1. The patient was evaluated at the bedside today. The patient denies nausea, vomiting, abdominal pain, shortness of breath, and chest pain this morning. She states her pain is moderately controlled at this time. The patient has not been up with physical therapy. Objective - Vital Signs Vital signs: Vital Signs Temp 98.6 F 04/24/18 08:00 Pulse 75 04/24/18 08:00 Resp 17 04/24/18 08:02 BP 131/71 04/24/18 08:00 Pulse Ox 93 L 04/24/18 08:00 Intake & Output 04/23/18 04/24/18 04/24/18 18:59 06:59 18:59 Intake Total 2000 1560 Output Total 10 Balance 1990 1560 Weight 99.79 kg Intake: IV 2000 Intake, IV Titration 600 Amount Lactated Ringers 1,000 ml 600 @ 0 mls/hr IV .[place] [facility] Rx#:[id number] Other 960 Output: Estimated Blood Loss 10 Other: Voiding Method Bedside Commode # Voids 1 - Exam The patient does not appear in acute distress. Alert and orientated x3. Splint and dressing is clean dry and intact. She is able to wiggle her toes without difficulty. Sensation and circulatory status is intact. Assessment and Plan (1) Bimalleolar fracture Current Visit: No Status: Acute Code(s): S82.843A - DISPLACED BIMALLEOLAR FRACTURE OF UNSP LOWER LEG, INIT SNOMED Code(s): 059801630 (2) Status post open reduction with internal fixation (ORIF) of fracture of ankle Current Visit: Yes Status: Acute Code(s): Z96.7 - PRESENCE OF OTHER BONE AND TENDON IMPLANTS; Z87.81 - PERSONAL HISTORY OF (HEALED) TRAUMATIC FRACTURE SNOMED Code(s): 990175159 Plan: 1. Continue pain control, increase to [place] 7.5 and decrease Dilaudid use 2. Anticoagulation with Aspirin 3. Start physical therapy and ambulation, strict non-weighbearing left leg 4. Anticipate discharge home likely tomorrow.
[2018-04-24] MEDS: HYDROcodone/APAP 7.5-325MG 1 EACH TAB PO PRN ×3 (11:38→22:30)
--- NOTE | 2018-04-24 17:27 | P.CONS ---
History of Present Illness - History of Present Illness This is a pleasant 57 years old female with past medical history of COPD, CVA/ TIA, CHF, coronary artery disease, osteoarthritis, seizure disorder related to alcohol withdrawal, sleep apnea on CPAP/BiPAP history of alcohol withdrawal, chronic back pain, neuropathy of lower extremity. Presents because of left ankle fractures about 2 weeks ago. Patient is status post open reduction and internal fixation of her left ankle fracture. Patient denies chest pain. No dyspnea. She is alert awake in bed. No change in urine or bowel habits. Pain is controlled. No fever Review of Systems CONSTITUTIONAL: No fever, no malaise, no fatigue. HEENT: No recent visual problems or hearing problems. Denied any sore throat. CARDIOVASCULAR: No orthopnea, PND, no palpitations, no syncope. PULMONARY: No shortness of breath, no cough, no hemoptysis. GASTROINTESTINAL: No diarrhea, no nausea, no vomiting, no abdominal pain. Normoactive bowel sounds. NEUROLOGICAL: No headaches, no weakness, no numbness. HEMATOLOGICAL: Denies any bleeding or petechiae. GENITOURINARY: Denies any burning micturition, frequency, or urgency. MUSCULOSKELETAL/RHEUMATOLOGICAL: Denies any joint pain, swelling, or any muscle pain. ENDOCRINE: Denies any polyuria or polydipsia. Past Medical History Past Medical History: Heart Failure, COPD, CVA/TIA, Hypertension, Liver Disease , Myocardial Infarction ([place]), Osteoarthritis (OA), Pneumonia, Seizure Disorder, Sleep Apnea/CPAP/BIPAP Additional Past Medical History / Comment(s): Past alcohol withdrawal, chronic back pain, neuropathy bilateral lower extremities, hx R foot ulcer 2015, hx abdominal wound 2011, CVA 2002 affected rt eye vision but resolved in 6 months, continued numbness rt hand 4-5th fingers.CVA 2010 with numbness/tingling fingers and R leg weakness, hx TIA's, concussion from fall 2010, balance issues , UTIs, seizure history from etoh-yrs ago. Spot on liver, alcohol use related. Recent rib fracture, healed. Hx Pneumonia at 26 yrs of age. No CPAP use. Current left ankle fracture. Last Myocardial Infarction Date:: 2014 History of Any Multi-Drug Resistant Organisms: None Reported Year Discovered:: None MDRO Source:: None Past Surgical History: Section, Hernia Repair Additional Past Surgical History / Comment(s): Ventral hernia repair x 4, Section X2, debridements of R foot and abdomin, colonoscopy, laparoscopy, seromas x 2 drained. Past Anesthesia/Blood Transfusion Reactions: No Reported Reaction Smoking Status: Current every day smoker - Past Family History Father Additional Family Medical History / Comment(s): Father is alive at age 75 with no major medical problems. Mother Family Medical History: Cancer Additional Family Medical History / Comment(s): Mother at age 65 from breast cancer/bone. Brother(s) Additional Family Medical History / Comment(s): Patient has 1 brother that from a motor vehicle accident involving alcohol. Patient has no sisters. Patient has 1 son 21 years old and one daughter 23 years old and she has no contact with her children. Medications and Allergies Home Medications Medication Instructions Recorded Confirmed Type Sertraline [Zoloft] 50 mg PO HS #30 tab 10/29/17 04/23/18 Rx traZODone HCL [Desyrel] 100 mg PO HS #30 tab 10/29/17 04/23/18 Rx Magnesium Oxide 400 mg PO BID 03/09/18 04/23/18 History Cetirizine HCl [Zyrtec] 10 mg PO DAILY PRN 04/15/18 04/23/18 History Hydrochlorothiazide [Hydrodiuril] 25 mg PO DAILY 04/15/18 04/23/18 History Losartan Potassium 100 mg PO DAILY 04/15/18 04/23/18 History Multivitamins, Thera [Multivitamin 1 tab PO DAILY 04/15/18 04/23/18 History (formulary)] amLODIPine [Norvasc] 10 mg PO HS 04/15/18 04/23/18 History Ibuprofen [Motrin] 800 mg PO Q6H 04/19/18 04/23/18 History Aspirin 325 mg PO BID #60 tab 04/23/18 Rx HYDROcodone/APAP 5-325MG [[place] 1 - 2 each PO Q4-6H PRN #50 tab 04/23/18 Rx 5-325] Sennosides-Docusate Sodium 1 tab PO BID #60 tablet 04/23/18 Rx [Senokot-S] Allergies Allergy/AdvReac Type Severity Reaction Status Date / Time Iodinated Contrast- Oral and Allergy Unknown Verified 04/23/18 10:45 IV Dye [Iodinated Contrast Media - IV Dye] levofloxacin [From Levaquin] Allergy Anaphylaxis Verified 04/23/18 10:45 pregabalin [From Lyrica] Allergy Nausea & Verified 04/23/18 10:45 Vomiting Physical Exam Vitals: Vital Signs Temp Pulse Pulse Resp BP Pulse Ox 04/24/18 08:02 17 04/24/18 08:00 98.6 F 75 17 131/71 93 L 04/24/18 00:07 98.4 F 69 16 117/74 92 L 04/23/18 19:51 86 111/65 04/23/18 19:36 87 124/73 04/23/18 19:21 74 110/72 04/23/18 19:06 75 103/66 04/23/18 18:51 75 120/75 04/23/18 18:36 77 119/74 04/23/18 18:21 82 137/82 04/23/18 17:38 88 164/130 04/23/18 17:30 98.4 F 77 16 117/63 92 L 04/23/18 17:22 82 117/63 91 L 04/23/18 17:00 85 16 107/58 94 L 04/23/18 16:30 72 16 103/68 95 04/23/18 16:08 82 18 103/68 96 04/23/18 15:53 92 18 131/77 94 L Intake and Output 04/24/18 04/24/18 04/24/18 06:59 14:59 22:59 Other: Voiding Method Bedside Commode # Voids 1 1 GENERAL: The patient is alert and oriented x3, not in any acute distress. Well developed, well nourished. HEENT: Pupils are round and equally reacting to light. EOMI. No scleral icterus. No conjunctival pallor. Normocephalic, atraumatic. No pharyngeal erythema. No thyromegaly. CARDIOVASCULAR: S1 and S2 present. No murmurs, rubs, or gallops. PULMONARY: Chest is clear to auscultation, no wheezing or crackles. ABDOMEN: Soft, nontender, nondistended, normoactive bowel sounds. No palpable organomegaly. MUSCULOSKELETAL: No joint swelling or deformity. EXTREMITIES: No cyanosis, clubbing, or pedal edema. -Left ankle is in a dressing and cast, further examination is deferred to the primary surgical team NEUROLOGICAL: Gross neurological examination did not reveal any focal deficits. SKIN: No rashes. Assessment and Plan Assessment: Patients with fractured left ankle, status post open reduction and internal fixation h/o COPD h/o CVA/TIA h/o CHF and coronary artery disease osteoarthritis h/oseizure disorder related to alcohol withdrawal, history of alcohol withdrawal chronic back pain neuropathy of lower extremity h/o sleep apnea on CPAP/BiPAP Plan: We recommend to continue with same and treatment. Continue with symptomatic treatment. Resume home medication. Monitor labs and vitals. Recommend DVT and GI prophylaxis. DVT prophylaxis and pain management as per primary team. Further recommendations based on the clinical course of the patient Prognosis is guarded
[2018-04-24] MEDS: SERTRALINE 50 MG TAB PO SCH (21:24)
[2018-04-24] MEDS: traZODone HCL 100 MG TAB PO SCH (22:28)
[2018-04-25] MEDS: diphenhydrAMINE 25 MG CAP PO PRN (01:03)
[2018-04-25] MEDS: LACTATED RINGERS 1,000 ML IV SCH (05:51)
[2018-04-25] MEDS: hydrOXYzine PAMOATE 25 MG CAP PO PRN ×3 (07:30→20:29)
[2018-04-25] MEDS: HYDROcodone/APAP 7.5-325MG 1 EACH TAB PO PRN ×3 (07:32→20:25)
[2018-04-25] MEDS: ASPIRIN 325 MG TAB PO SCH ×2 (09:11→21:17)
[2018-04-25] MEDS: LOSARTAN 50 MG TAB PO SCH (09:12)
[2018-04-25] MEDS: MAGNESIUM OXIDE 400 MG TAB PO SCH ×2 (09:13→21:17)
--- NOTE | 2018-04-25 09:30 | P.PN ---
Subjective Progress Note Date: 04/25/18 Principal diagnosis: Status post-ORIF left ankle This is a 57 year-old female post ORIF left bimalleolar fracture. This is post- op day 2. The patient was evaluated at the bedside today. The patient denies nausea, vomiting, abdominal pain, shortness of breath, and chest pain this morning. She states her pain is moderately controlled at this time. The patient has been up with physical therapy and is considering skilled rehab upon discharge. Objective - Vital Signs Vital signs: Vital Signs Temp 98.7 F 04/25/18 06:45 Pulse 98 04/25/18 06:45 Resp 12 04/25/18 06:45 BP 186/82 04/25/18 06:45 Pulse Ox 90 L 04/25/18 06:45 Intake & Output 04/24/18 04/25/18 04/25/18 18:59 06:59 18:59 Intake Total 240 Balance 240 Weight 99.79 kg Intake: Oral 240 Other: Voiding Method Bedside Commode Bedside Commode # Voids 1 - Exam The patient does not appear in acute distress. Alert and orientated x3. Splint and dressing is clean dry and intact. She is able to wiggle her toes without difficulty. Sensation and circulatory status is intact. Assessment and Plan (1) Bimalleolar fracture Current Visit: No Status: Acute Code(s): S82.843A - DISPLACED BIMALLEOLAR FRACTURE OF UNSP LOWER LEG, INIT SNOMED Code(s): 025453704 (2) Status post open reduction with internal fixation (ORIF) of fracture of ankle Current Visit: Yes Status: Acute Code(s): Z96.7 - PRESENCE OF OTHER BONE AND TENDON IMPLANTS; Z87.81 - PERSONAL HISTORY OF (HEALED) TRAUMATIC FRACTURE SNOMED Code(s): 416133597 Plan: 1. Continue pain control 2. Anticoagulation with Aspirin 3. Continue physical therapy and ambulation, strict non-weighbearing left leg 4. Anticipate discharge to skilled rehab in the next 1-2 days.
[2018-04-25] MEDS: MULTIVITAMINS, THERA 1 EACH TAB PO SCH (12:29)
--- NOTE | 2018-04-25 20:05 | P.PN ---
Subjective This is a pleasant 57 years old female with past medical history of COPD, CVA/ TIA, CHF, coronary artery disease, osteoarthritis, seizure disorder related to alcohol withdrawal, sleep apnea on CPAP/BiPAP history of alcohol withdrawal, chronic back pain, neuropathy of lower extremity. Presents because of left ankle fractures about 2 weeks ago. Patient is status post open reduction and internal fixation of her left ankle fracture. Patient denies chest pain. No dyspnea. She is alert awake in bed. No change in urine or bowel habits. Pain is controlled. No fever 04/25/2018 today is post op day 2. pt is lying in bed comfortable and states he pain is controlled. no chest pain , no dyspnea , no change in bowel habits , no fever . vitals are stable, possible discharge to rehab tomorrow Objective - Vital Signs Vital signs: Vital Signs Temp 99.4 F 04/25/18 15:00 Pulse 69 04/25/18 15:00 Resp 12 04/25/18 15:00 BP 165/83 04/25/18 15:00 Pulse Ox 91 L 04/25/18 15:00 Intake & Output 04/25/18 04/25/18 04/26/18 06:59 18:59 06:59 Intake Total 1480 Balance 1480 Weight 99.79 kg Intake: Oral 1480 Other: Voiding Method Bedside Commode - Exam GENERAL: The patient is alert and oriented x3, not in any acute distress. Well developed, well nourished. HEENT: Pupils are round and equally reacting to light. EOMI. No scleral icterus. No conjunctival pallor. Normocephalic, atraumatic. No pharyngeal erythema. No thyromegaly. CARDIOVASCULAR: S1 and S2 present. No murmurs, rubs, or gallops. PULMONARY: Chest is clear to auscultation, no wheezing or crackles. ABDOMEN: Soft, nontender, nondistended, normoactive bowel sounds. No palpable organomegaly. MUSCULOSKELETAL: No joint swelling or deformity. EXTREMITIES: No cyanosis, clubbing, or pedal edema. -Left ankle is in a dressing and cast, further examination is deferred to the primary surgical team NEUROLOGICAL: Gross neurological examination did not reveal any focal deficits. SKIN: No rashes. Assessment and Plan Assessment: Patients with fractured left ankle, status post open reduction and internal fixation h/o COPD h/o CVA/TIA h/o CHF and coronary artery disease osteoarthritis h/oseizure disorder related to alcohol withdrawal, history of alcohol withdrawal chronic back pain neuropathy of lower extremity h/o sleep apnea on CPAP/BiPAP Plan: We recommend to continue with same and treatment. Continue with symptomatic treatment. Resume home medication. Monitor labs and vitals. Recommend DVT and GI prophylaxis. DVT prophylaxis and pain management as per primary team. Further recommendations based on the clinical course of the patient Prognosis is guarded
[2018-04-25] MEDS: SERTRALINE 50 MG TAB PO SCH (21:17)
[2018-04-25] MEDS: ONDANSETRON 4 MG/2 ML VIAL IVP PRN (21:17)
[2018-04-25] MEDS: traZODone HCL 100 MG TAB PO SCH (22:04)
[2018-04-26] MEDS: HYDROcodone/APAP 7.5-325MG 1 EACH TAB PO PRN ×4 (02:41→19:47)
[2018-04-26] MEDS: hydrOXYzine PAMOATE 25 MG CAP PO PRN ×4 (02:42→19:48)
[2018-04-26] MEDS: LACTATED RINGERS 1,000 ML IV SCH (04:04)
[2018-04-26] MEDS: ASPIRIN 325 MG TAB PO SCH ×2 (09:15→22:13)
[2018-04-26] MEDS: LOSARTAN 50 MG TAB PO SCH (09:17)
[2018-04-26] MEDS: MAGNESIUM OXIDE 400 MG TAB PO SCH ×2 (09:17→22:13)
[2018-04-26] MEDS: LORATADINE 10 MG TAB PO PRN (09:17)
--- NOTE | 2018-04-26 10:49 | P.PN ---
Subjective This is a pleasant 57 years old female with past medical history of COPD, CVA/ TIA, CHF, coronary artery disease, osteoarthritis, seizure disorder related to alcohol withdrawal, sleep apnea on CPAP/BiPAP history of alcohol withdrawal, chronic back pain, neuropathy of lower extremity. Presents because of left ankle fractures about 2 weeks ago. Patient is status post open reduction and internal fixation of her left ankle fracture. Patient denies chest pain. No dyspnea. She is alert awake in bed. No change in urine or bowel habits. Pain is controlled. No fever 04/25/2018 today is post op day 2. pt is lying in bed comfortable and states he pain is controlled. no chest pain , no dyspnea , no change in bowel habits , no fever . vitals are stable, possible discharge to rehab tomorrow 04/26/2018 today is post op day 3. pt is lying in bed comfortable and states he pain is controlled. no chest pain , no dyspnea , no change in bowel habits , no fever . vitals are stable. Patient might benefit from subacute rehab. Physical therapist and surgical team recommended subacute rehab. Objective - Vital Signs Vital signs: Vital Signs Temp 98.5 F 04/26/18 07:00 Pulse 64 04/26/18 07:00 Resp 18 04/26/18 07:00 BP 153/93 04/26/18 07:00 Pulse Ox 94 L 04/26/18 07:00 Intake & Output 04/25/18 04/26/18 04/26/18 18:59 06:59 18:59 Intake Total 1480 1080 Balance 1480 1080 Intake: Oral 1480 1080 Other: # Voids 2 # Bowel Movements 1 - Exam GENERAL: The patient is alert and oriented x3, not in any acute distress. Well developed, well nourished. HEENT: Pupils are round and equally reacting to light. EOMI. No scleral icterus. No conjunctival pallor. Normocephalic, atraumatic. No pharyngeal erythema. No thyromegaly. CARDIOVASCULAR: S1 and S2 present. No murmurs, rubs, or gallops. PULMONARY: Chest is clear to auscultation, no wheezing or crackles. ABDOMEN: Soft, nontender, nondistended, normoactive bowel sounds. No palpable organomegaly. MUSCULOSKELETAL: No joint swelling or deformity. EXTREMITIES: No cyanosis, clubbing, or pedal edema. -Left ankle is in a dressing and cast, further examination is deferred to the primary surgical team NEUROLOGICAL: Gross neurological examination did not reveal any focal deficits. SKIN: No rashes. Assessment and Plan Assessment: Patients with fractured left ankle, status post open reduction and internal fixation h/o COPD h/o CVA/TIA h/o CHF and coronary artery disease osteoarthritis h/oseizure disorder related to alcohol withdrawal, history of alcohol withdrawal chronic back pain neuropathy of lower extremity h/o sleep apnea on CPAP/BiPAP Plan: We recommend to continue with same and treatment. Continue with symptomatic treatment. Resume home medication. Monitor labs and vitals. Recommend DVT and GI prophylaxis. DVT prophylaxis and pain management as per primary team. Further recommendations based on the clinical course of the patient Prognosis is guarded Patient instructed to follow up with her primary care doctor in 1 week Thank you for consulting us, please feel free to contact us for any further clarification or questions
--- NOTE | 2018-04-26 11:36 | P.PN ---
Subjective Progress Note Date: 04/26/18 Principal diagnosis: status post ORIF left ankle this is a 57 year old female s/p ORIF left ankle. She wants to go to inpatient rehab and understands that she has to be inpatient in the hospital for 3 days in order to do so. She has been changed to inpatient status as of today. Discussed inpatient rehab with her. Objective - Vital Signs Vital signs: Vital Signs Temp 98.5 F 04/26/18 07:00 Pulse 64 04/26/18 07:00 Resp 18 04/26/18 07:00 BP 153/93 04/26/18 07:00 Pulse Ox 94 L 04/26/18 07:00 Intake & Output 04/25/18 04/26/18 04/26/18 18:59 06:59 18:59 Intake Total 1480 1080 Balance 1480 1080 Intake: Oral 1480 1080 Other: # Voids 2 # Bowel Movements 1 - Exam 57 year old female alert and orientated x 3. Splint is intact. Neurovascular intact, she is able to wiggle her toes. Assessment and Plan (1) Status post open reduction with internal fixation (ORIF) of fracture of ankle Current Visit: Yes Status: Acute Code(s): Z96.7 - PRESENCE OF OTHER BONE AND TENDON IMPLANTS; Z87.81 - PERSONAL HISTORY OF (HEALED) TRAUMATIC FRACTURE SNOMED Code(s): 260120839 (2) Bimalleolar fracture Current Visit: No Status: Acute Code(s): S82.843A - DISPLACED BIMALLEOLAR FRACTURE OF UNSP LOWER LEG, INIT SNOMED Code(s): 785628709 (3) Mood disorder Current Visit: No Status: Acute Code(s): F39 - UNSPECIFIED MOOD [AFFECTIVE] DISORDER SNOMED Code(s): 94354480491143 Plan: Clinical findings were discussed with the patient. Patient is insisting on going to inpatient rehab. She understands that she has to be inpatient in the hospital for 3 days in order to do so. Continue current care. Time with Patient: Less than 30
[2018-04-26] MEDS: MULTIVITAMINS, THERA 1 EACH TAB PO SCH (14:05)
[2018-04-26] MEDS: SERTRALINE 50 MG TAB PO SCH (22:13)
[2018-04-26] MEDS: traZODone HCL 100 MG TAB PO SCH (22:13)
[2018-04-27] MEDS: hydrOXYzine PAMOATE 25 MG CAP PO PRN ×4 (02:18→22:03)
[2018-04-27] MEDS: HYDROcodone/APAP 7.5-325MG 1 EACH TAB PO PRN ×5 (02:18→22:04)
[2018-04-27] MEDS: ONDANSETRON 4 MG/2 ML VIAL IVP PRN (05:13)
[2018-04-27] MEDS: LACTATED RINGERS 1,000 ML IV SCH (07:35)
[2018-04-27] MEDS: ASPIRIN 325 MG TAB PO SCH ×2 (09:20→21:59)
[2018-04-27] MEDS: MULTIVITAMINS, THERA 1 EACH TAB PO SCH (09:20)
[2018-04-27] MEDS: MAGNESIUM OXIDE 400 MG TAB PO SCH ×2 (09:20→22:00)
[2018-04-27] MEDS: LOSARTAN 50 MG TAB PO SCH (09:22)
[2018-04-27] MEDS: LORATADINE 10 MG TAB PO PRN (09:22)
--- NOTE | 2018-04-27 10:25 | P.PN ---
Subjective This is a pleasant 57 years old female with past medical history of COPD, CVA/ TIA, CHF, coronary artery disease, osteoarthritis, seizure disorder related to alcohol withdrawal, sleep apnea on CPAP/BiPAP history of alcohol withdrawal, chronic back pain, neuropathy of lower extremity. Presents because of left ankle fractures about 2 weeks ago. Patient is status post open reduction and internal fixation of her left ankle fracture. Patient denies chest pain. No dyspnea. She is alert awake in bed. No change in urine or bowel habits. Pain is controlled. No fever 04/25/2018 today is post op day 2. pt is lying in bed comfortable and states he pain is controlled. no chest pain , no dyspnea , no change in bowel habits , no fever . vitals are stable, possible discharge to rehab tomorrow 04/26/2018 today is post op day 3. pt is lying in bed comfortable and states he pain is controlled. no chest pain , no dyspnea , no change in bowel habits , no fever . vitals are stable. Patient might benefit from subacute rehab. Physical therapist and surgical team recommended subacute rehab. 04/27/2018 Pain assessment and examined by me at bedside. Patient denies chest pain. No dyspnea. No change in urine or bowel habits. No nausea and vomiting. No fever. Patient pending placement, she needs 3 days of inpatient which will end tomorrow Objective - Vital Signs Vital signs: Vital Signs Temp 98.2 F 04/27/18 07:00 Pulse 79 04/27/18 07:00 Resp 16 04/27/18 07:00 BP 143/90 04/27/18 07:00 Pulse Ox 94 L 04/27/18 00:15 Intake & Output 04/26/18 04/27/18 04/27/18 18:59 06:59 18:59 Intake Total 360 300 Balance 360 300 Intake: Oral 360 300 Other: Voiding Method Bedside Commode Bedside Commode # Voids 2 2 - Exam GENERAL: The patient is alert and oriented x3, not in any acute distress. Well developed, well nourished. HEENT: Pupils are round and equally reacting to light. EOMI. No scleral icterus. No conjunctival pallor. Normocephalic, atraumatic. No pharyngeal erythema. No thyromegaly. CARDIOVASCULAR: S1 and S2 present. No murmurs, rubs, or gallops. PULMONARY: Chest is clear to auscultation, no wheezing or crackles. ABDOMEN: Soft, nontender, nondistended, normoactive bowel sounds. No palpable organomegaly. MUSCULOSKELETAL: No joint swelling or deformity. EXTREMITIES: No cyanosis, clubbing, or pedal edema. -Left ankle is in a dressing and cast, further examination is deferred to the primary surgical team NEUROLOGICAL: Gross neurological examination did not reveal any focal deficits. SKIN: No rashes. Assessment and Plan Assessment: Patients with fractured left ankle, status post open reduction and internal fixation h/o COPD h/o CVA/TIA h/o CHF and coronary artery disease osteoarthritis h/oseizure disorder related to alcohol withdrawal, history of alcohol withdrawal chronic back pain neuropathy of lower extremity h/o sleep apnea on CPAP/BiPAP Plan: We recommend to continue with same and treatment. Continue with symptomatic treatment. Resume home medication. Monitor labs and vitals. Recommend DVT and GI prophylaxis. DVT prophylaxis and pain management as per primary team. Further recommendations based on the clinical course of the patient Prognosis is guarded Patient instructed to follow up with her primary care doctor in 1 week Thank you for consulting us, please feel free to contact us for any further clarification or questions
--- NOTE | 2018-04-27 13:12 | P.PN ---
Subjective Progress Note Date: 04/27/18 Principal diagnosis: Status post ORIF left ankle This is a 57-year-old female who is status post open reduction internal fixation of the left ankle. She is awaiting rehab placement. She has no new complaints or concerns today. Vital signs are stable. Objective - Vital Signs Vital signs: Vital Signs Temp 98.2 F 04/27/18 07:00 Pulse 79 04/27/18 07:00 Resp 16 04/27/18 07:00 BP 143/90 04/27/18 07:00 Pulse Ox 94 L 04/27/18 00:15 Intake & Output 04/26/18 04/27/18 04/27/18 18:59 06:59 18:59 Intake Total 360 300 Balance 360 300 Intake: Oral 360 300 Other: Voiding Method Bedside Commode Bedside Commode # Voids 2 2 - Exam This is a 57-year-old female in no acute distress. She is alert and oriented 3. Exam of the left ankle reveals that her splint is intact. She has full toe motion. Capillary refills less than 3 seconds. Neurovascular status to the lower extremity is intact. Assessment and Plan (1) Status post open reduction with internal fixation (ORIF) of fracture of ankle Current Visit: Yes Status: Acute Code(s): Z96.7 - PRESENCE OF OTHER BONE AND TENDON IMPLANTS; Z87.81 - PERSONAL HISTORY OF (HEALED) TRAUMATIC FRACTURE SNOMED Code(s): 479707264 (2) Bimalleolar fracture Current Visit: No Status: Acute Code(s): S82.843A - DISPLACED BIMALLEOLAR FRACTURE OF UNSP LOWER LEG, INIT SNOMED Code(s): 366983997 (3) Mood disorder Current Visit: No Status: Acute Code(s): F39 - UNSPECIFIED MOOD [AFFECTIVE] DISORDER SNOMED Code(s): 66832678498425 Plan: Clinical findings were discussed with the patient. Patient is insisting on going to inpatient rehab. She understands that she has to be inpatient in the hospital for 3 days in order to do so. Continue current care.
[2018-04-27] MEDS: traZODone HCL 100 MG TAB PO SCH (21:59)
[2018-04-27] MEDS: SERTRALINE 50 MG TAB PO SCH (22:00)
[2018-04-28] MEDS: HYDROcodone/APAP 7.5-325MG 1 EACH TAB PO PRN ×4 (02:59→20:38)
[2018-04-28] MEDS: hydrOXYzine PAMOATE 25 MG CAP PO PRN ×4 (03:00→20:44)
[2018-04-28] MEDS: LACTATED RINGERS 1,000 ML IV SCH (05:45)
--- NOTE | 2018-04-28 08:10 | P.PN ---
Subjective Progress Note Date: 04/28/18 Principal diagnosis: Status post ORIF left ankle This is a 57-year-old female who is status post open reduction internal fixation of the left ankle. She is awaiting rehab placement. She has no new complaints or concerns today. Vital signs are stable. She is interested in seeing a picture of the plate and wants to know what size it is. Objective - Vital Signs Vital signs: Vital Signs Temp 98.8 F 04/28/18 07:20 Pulse 59 L 04/28/18 07:20 Resp 16 04/28/18 07:20 BP 162/93 04/28/18 07:20 Pulse Ox 94 L 04/28/18 07:20 Intake & Output 04/27/18 04/28/18 04/28/18 18:59 06:59 18:59 Other: # Voids 2 3 # Bowel Movements 1 - Exam This is a 57-year-old female in no acute distress. She is alert and oriented 3. Exam of the left ankle reveals that her splint is intact. She has full toe motion. Capillary refills less than 3 seconds. Neurovascular status to the lower extremity is intact. Assessment and Plan (1) Status post open reduction with internal fixation (ORIF) of fracture of ankle Current Visit: Yes Status: Acute Code(s): Z96.7 - PRESENCE OF OTHER BONE AND TENDON IMPLANTS; Z87.81 - PERSONAL HISTORY OF (HEALED) TRAUMATIC FRACTURE SNOMED Code(s): 650917848 (2) Bimalleolar fracture Current Visit: No Status: Acute Code(s): S82.843A - DISPLACED BIMALLEOLAR FRACTURE OF UNSP LOWER LEG, INIT SNOMED Code(s): 314847316 (3) Mood disorder Current Visit: No Status: Acute Code(s): F39 - UNSPECIFIED MOOD [AFFECTIVE] DISORDER SNOMED Code(s): 83523346888897 Plan: Clinical findings were discussed with the patient. Patient is awaiting her discharge to inpatient rehab. She understands that she has to be inpatient in the hospital for 3 days in order to do so. Continue current care.
[2018-04-28] MEDS: LORATADINE 10 MG TAB PO PRN (08:50)
[2018-04-28] MEDS: ASPIRIN 325 MG TAB PO SCH ×2 (09:42→20:37)
[2018-04-28] MEDS: LOSARTAN 50 MG TAB PO SCH (09:42)
[2018-04-28] MEDS: MAGNESIUM OXIDE 400 MG TAB PO SCH ×2 (09:42→20:37)
--- NOTE | 2018-04-28 10:51 | P.PN ---
Subjective This is a pleasant 57 years old female with past medical history of COPD, CVA/ TIA, CHF, coronary artery disease, osteoarthritis, seizure disorder related to alcohol withdrawal, sleep apnea on CPAP/BiPAP history of alcohol withdrawal, chronic back pain, neuropathy of lower extremity. Presents because of left ankle fractures about 2 weeks ago. Patient is status post open reduction and internal fixation of her left ankle fracture. Patient denies chest pain. No dyspnea. She is alert awake in bed. No change in urine or bowel habits. Pain is controlled. No fever 04/25/2018 today is post op day 2. pt is lying in bed comfortable and states he pain is controlled. no chest pain , no dyspnea , no change in bowel habits , no fever . vitals are stable, possible discharge to rehab tomorrow 04/26/2018 today is post op day 3. pt is lying in bed comfortable and states he pain is controlled. no chest pain , no dyspnea , no change in bowel habits , no fever . vitals are stable. Patient might benefit from subacute rehab. Physical therapist and surgical team recommended subacute rehab. 04/27/2018 Pain assessment and examined by me at bedside. Patient denies chest pain. No dyspnea. No change in urine or bowel habits. No nausea and vomiting. No fever. Patient pending placement, she needs 3 days of inpatient which will end tomorrow 04/28/2018 Patient was sedated and intubated no complaint of chest pain. No dyspnea. No other physical complaints. She should anticipated discharge tomorrow after finishing her 3 days inpatient stay Objective - Vital Signs Vital signs: Vital Signs Temp 98.8 F 04/28/18 07:20 Pulse 59 L 04/28/18 07:20 Resp 16 04/28/18 07:20 BP 162/93 04/28/18 07:20 Pulse Ox 94 L 04/28/18 07:20 Intake & Output 04/27/18 04/28/18 04/28/18 18:59 06:59 18:59 Intake Total 340 Balance 340 Intake: Oral 340 Other: # Voids 2 3 # Bowel Movements 1 - Exam GENERAL: The patient is alert and oriented x3, not in any acute distress. Well developed, well nourished. HEENT: Pupils are round and equally reacting to light. EOMI. No scleral icterus. No conjunctival pallor. Normocephalic, atraumatic. No pharyngeal erythema. No thyromegaly. CARDIOVASCULAR: S1 and S2 present. No murmurs, rubs, or gallops. PULMONARY: Chest is clear to auscultation, no wheezing or crackles. ABDOMEN: Soft, nontender, nondistended, normoactive bowel sounds. No palpable organomegaly. MUSCULOSKELETAL: No joint swelling or deformity. EXTREMITIES: No cyanosis, clubbing, or pedal edema. -Left ankle is in a dressing and cast, further examination is deferred to the primary surgical team NEUROLOGICAL: Gross neurological examination did not reveal any focal deficits. SKIN: No rashes. Assessment and Plan Assessment: Patients with fractured left ankle, status post open reduction and internal fixation h/o COPD h/o CVA/TIA h/o CHF and coronary artery disease osteoarthritis h/oseizure disorder related to alcohol withdrawal, history of alcohol withdrawal chronic back pain neuropathy of lower extremity h/o sleep apnea on CPAP/BiPAP Plan: We recommend to continue with same and treatment. Continue with symptomatic treatment. Resume home medication. Monitor labs and vitals. Recommend DVT and GI prophylaxis. DVT prophylaxis and pain management as per primary team. Further recommendations based on the clinical course of the patient Prognosis is guarded Patient instructed to follow up with her primary care doctor in 1 week Thank you for consulting us, please feel free to contact us for any further clarification or questions
[2018-04-28] MEDS: MULTIVITAMINS, THERA 1 EACH TAB PO SCH (13:30)
[2018-04-28] MEDS: SERTRALINE 50 MG TAB PO SCH (20:37)
[2018-04-28] MEDS: traZODone HCL 100 MG TAB PO SCH (21:44)
[2018-04-29] MEDS: hydrOXYzine PAMOATE 25 MG CAP PO PRN ×3 (03:58→13:59)
[2018-04-29] MEDS: HYDROcodone/APAP 7.5-325MG 1 EACH TAB PO PRN ×3 (03:59→13:58)
[2018-04-29] MEDS: LACTATED RINGERS 1,000 ML IV SCH (05:09)
--- NOTE | 2018-04-29 08:07 | P.DS ---
Providers Date of admission: 04/23/18 14:57 Expected date of discharge: 04/29/18 Attending physician: Skyler Mcdaniels Consults: 04/23/18 14:57 Consult Physician Routine Consulting Provider: Alfredo Thakkar Consult Reason/Comments: medical management Do you want consulting provider notified?: Yes Primary care physician: Alfredo Pearson Bijan - Discharge Diagnosis(es) (1) Status post open reduction with internal fixation (ORIF) of fracture of ankle Current Visit: Yes Status: Acute (2) Bimalleolar fracture Current Visit: No Status: Acute (3) Mood disorder Current Visit: No Status: Acute Hospital Course: This is a 57-year-old female with history of bimalleolar fracture of the left ankle. It was recommended she have open reduction internal fixation of the left ankle. She is admitted on 04/23/2018 for open reduction showed fixation of the left ankle. The procedure was performed without complication or sequelae. Patient had difficulty with ambulation and maintaining nonweightbearing to the left lower extremity postoperatively. She is requesting inpatient rehab. The patient was made inpatient status on 2017. She is ready for discharge to inpatient rehab today. Patient is discharged to inpatient rehab today. She is to continue nonweightbearing to the left lower extremity with walker. She is to maintain her splint. Plan - Discharge Summary Discharge Rx Participant: Yes New Discharge Prescriptions: New Aspirin 325 mg PO BID #60 tab HYDROcodone/APAP 5-325MG [[place] 5-325] 1 - 2 each PO Q4-6H PRN #50 tab PRN Reason: Pain Sennosides-Docusate Sodium [Senokot-S] 1 tab PO BID #60 tablet No Action Sertraline [Zoloft] 50 mg PO HS #30 tab traZODone HCL [Desyrel] 100 mg PO HS #30 tab Magnesium Oxide 400 mg PO BID amLODIPine [Norvasc] 10 mg PO HS Losartan Potassium 100 mg PO DAILY Hydrochlorothiazide [Hydrodiuril] 25 mg PO DAILY Cetirizine HCl [Zyrtec] 10 mg PO DAILY PRN PRN Reason: Allergy Symptoms Multivitamins, Thera [Multivitamin (formulary)] 1 tab PO DAILY Ibuprofen [Motrin] 800 mg PO Q6H Discharge Medication List Sertraline [Zoloft] 50 mg PO HS #30 tab 10/29/17 [Rx] traZODone HCL [Desyrel] 100 mg PO HS #30 tab 10/29/17 [Rx] Magnesium Oxide 400 mg PO BID 03/09/18 [History] Cetirizine HCl [Zyrtec] 10 mg PO DAILY PRN 04/15/18 [History] Hydrochlorothiazide [Hydrodiuril] 25 mg PO DAILY 04/15/18 [History] Losartan Potassium 100 mg PO DAILY 04/15/18 [History] Multivitamins, Thera [Multivitamin (formulary)] 1 tab PO DAILY 04/15/18 [History ] amLODIPine [Norvasc] 10 mg PO HS 04/15/18 [History] Ibuprofen [Motrin] 800 mg PO Q6H 04/19/18 [History] Aspirin 325 mg PO BID #60 tab 04/23/18 [Rx] HYDROcodone/APAP 5-325MG [[place] 5-325] 1 - 2 each PO Q4-6H PRN #50 tab 04/23/18 [Rx] Sennosides-Docusate Sodium [Senokot-S] 1 tab PO BID #60 tablet 04/23/18 [Rx] Follow up Appointment(s)/Referral(s): Lulu Lucas, PAC [PHYSICIAN CONSUMER INSIGHT ANALYST] - [facility], [NON-STAFF] - As Needed [facility] Visiting Nurse, [NON-STAFF] - As Needed Activity/Diet/Wound Care/Special Instructions: Leave splint intact. Strict NWB PABLO lloyd. Discharge Disposition: TRANSFER TO SNF/ECF
[2018-04-29 09:01] VITALS: BP 149/82; PULSE 58; RESP 12; TEMP 98.3
[2018-04-29] MEDS: LOSARTAN 50 MG TAB PO SCH (09:08)
[2018-04-29] MEDS: MULTIVITAMINS, THERA 1 EACH TAB PO SCH (09:08)
[2018-04-29] MEDS: MAGNESIUM OXIDE 400 MG TAB PO SCH (09:08)
[2018-04-29] MEDS: ASPIRIN 325 MG TAB PO SCH (09:08)
[2018-04-29] MEDS: LORATADINE 10 MG TAB PO PRN (09:08)
--- NOTE | 2018-04-29 12:07 | P.PN ---
Progress Note - Text Patient medically cleared for transfer to [facility]
== END 2018-04-29 14:30 | DRG 494 ==
LOC: OR 12:00 → 3SUR 14:41 → OR 14:41 → 4SSUR 14:57 → UNDOADMIN 04-25 07:36 → 4SSUR 04-25 07:36 → OR 04-25 07:36 → 4SSUR 04-25 07:36
PROVIDERS: ADMIT Orthopaedic Surgery; ATTEND Orthopaedic Surgery
PROC: 0QSK04Z Reposition Left Fibula with Internal Fixation Device, Open Approach (ICD-10-PCS; principal; 2018-04-23 12:00)
PROC: 0QSH04Z Reposition Left Tibia with Internal Fixation Device, Open Approach (ICD-10-PCS; principal; 2018-04-23 12:00)
DX: S82.842A Displaced bimalleolar fracture of left lower leg, initial encounter for closed fracture (principal); W54.1XXA Struck by dog, initial encounter; F39 Unspecified mood [affective] disorder; G47.30 Sleep apnea, unspecified; G57.90 Unspecified mononeuropathy of unspecified lower limb; I25.10 Atherosclerotic heart disease of native coronary artery without angina pectoris; I50.9 Heart failure, unspecified; J44.9 Chronic obstructive pulmonary disease, unspecified; M19.90 Unspecified osteoarthritis, unspecified site; Z86.73 Personal history of transient ischemic attack (TIA), and cerebral infarction without residual deficits; Z82.49 Family history of ischemic heart disease and other diseases of the circulatory system; Z79.899 Other long term (current) drug therapy; Z88.8 Allergy status to other drugs, medicaments and biological substances; F17.200 Nicotine dependence, unspecified, uncomplicated; Z99.89 Dependence on other enabling machines and devices; M54.9 Dorsalgia, unspecified; G89.29 Other chronic pain

== ENCOUNTER → 2018-11-10 | Outpatient (CLI) | payer MEDICARE ==
[~2018-11-10] MED LIST changes: -DEXAMETHASONE SOD PHOSPHATE 10 MG/ML 1 ML VIAL IV ONE; -LIDOCAINE 1% 20 ML VIAL (10MG/ML) FOR IV START INTRADERMA PRN; -ONDANSETRON 4 MG/2 ML VIAL IVP PRN; +REGADENOSON 0.4 MG/5 ML SYRINGE IV ONE; -SCOPOLAMINE 1.5MG/72HR PATCH TRANSDERM ONE; -ceFAZolin IN SWFI 2 GM/20 ML SYRINGE IVP ONE
--- NOTE | 2018-11-10 12:15 | EST ---
EXERCISE STRESS AGE: 58 SEX: F HT: 5'7" WT: 235 PROTOCOL: Lexiscan Cardiolite Stress Test HEART RATE REST: 73 BLOOD PRESSURE REST: 143/91 MAXIMUM HEART RATE ACHIEVED: 110 MAXIMUM BLOOD PRESSURE: 171/81 INDICATIONS: Chest pain. CLINICAL INFORMATION: History of chest discomfort referred by Dr. Thakkar for a stress test. Baseline heart rate 73 beats per minute. Baseline blood pressure 143/91 mmHg. Baseline 12-lead ECG shows sinus rhythm. There is nonspecific ST changes and flattening of the P-waves in the precordial leads. Nonspecific ST-T abnormalities at baseline. The patient received Lexiscan infusion per protocol. There was no ECG evidence for ischemia. No arrhythmias were noted. Nuclear portion of the stress test will be reported separately. MMODL / IJN: [id number] /
--- NOTE | 2018-11-10 12:22 | ECHOF ---
Referral Reason:I50.22 CHF MEASUREMENTS -------- HEIGHT: 170.2 cm WEIGHT: 106.6 kg BP: RVIDd: 3.4 cm (< 3.3) IVSd: 1.2 cm (0.6 - 1.1) LVIDd: 3.9 cm (3.9 - 5.3) LVPWd: 0.9 cm (0.6 - 1.1) IVSs: 1.4 cm LVIDs: 2.2 cm LVPWs: 1.4 cm LA Diam: 3.1 cm (2.7 - 3.8) Ao Diam: 3.0 cm (2.0 - 3.7) AV Cusp: 1.9 cm (1.5 - 2.6) MV E Star: 0.47 m/s MV DecT: 304 ms MV A Star: 0.66 m/s MV E/A Ratio: 0.71 FINDINGS -------- Sinus rhythm. This was a techncally difficult study with suboptimal views, , Definity utilized for enhancement of i mages. The left ventricular size is normal. There is mild concentric left ventricular hypertrophy. Overa ll left ventricular systolic function is normal with, an EF between 55 - 60 %. The right ventricle is normal in size. The left atrial size is normal. The right atrial size is normal. 5 ml of Lumason was utilized for enhancement of images. The aortic valve was not well visualized. Mild mitral regurgitation is present. Unable to estimate RVSP due to inadequate TR jet spectral doppler profile. The pulmonic valve was not well visualized. The aortic root size is normal. There is a trivial pericardial effusion present. CONCLUSIONS -------- 1. This was a techncally difficult study with suboptimal views, , Definity utilized for enhancement o f images. 2. The left ventricular size is normal. 3. There is mild concentric left ventricular hypertrophy. 4. Overall left ventricular systolic function is normal with, an EF between 55 - 60 %. 5. The right ventricle is normal in size. 6. The left atrial size is normal. 7. The right atrial size is normal. 8. 5 ml of Lumason was utilized for enhancement of images. 9. The aortic valve was not well visualized. 10. Mild mitral regurgitation is present. 11. Unable to estimate RVSP due to inadequate TR jet spectral doppler profile. 12. The pulmonic valve was not well visualized. 13. The aortic root size is normal. 14. There is a trivial pericardial effusion present. JAVA PROJECT MANAGER: Anupama Kerr RDCS
--- NOTE | 2018-11-10 13:10 | NM ---
EXAMINATION TYPE: NM stress lexiscan cardiolite DATE OF EXAM: 11/10/2018 COMPARISON: NONE HISTORY: Chest pain TECHNIQUE: After the intravenous administration of 9.9 mCi Tc 99m Sestamibi - Cardiolite resting SPE CT images acquired 45 minutes post injection. The patient received 0.4mg Lexiscan, 25.6 mCi Tc 99m Sestamibi - Stress images obtained [address] injection FINDINGS: Review of stress and rest SPECT images demonstrates no distinct perfusion abnormality. Gated analysi s shows normal wall motion with an estimated left ventricular ejection fraction of 74 %. IMPRESSION: No scintigraphic evidence for reversible ischemia.
== END | disposition home or self-care (01) ==
LOC: RADNMMAIN 08:50
PROVIDERS: ATTEND Family Medicine
DX: I50.22 Chronic systolic (congestive) heart failure (principal)
CPT/HCPCS: 93017; 78452; C8929; A9500; J2785; Q9950; 93306

== ENCOUNTER 2019-03-17 21:43 | Inpatient (IN) | payer MEDICARE, OTHER ==
[2019-03-17] MEDS ORDERED: ONDANSETRON ODT 4 MG TAB PO STA (22:41)
--- NOTE | 2019-03-17 22:43 | ED ---
General Adult HPI - General Source: patient, EMS Mode of arrival: EMS <Wilmer Moya - Last Filed: 03/17/19 22:42> <FlorenceRangel - Last Filed: 03/18/19 02:15> - General Chief complaint: Psychiatric Symptoms Stated complaint: mental health Time Seen by Provider: 03/17/19 21:50 - History of Present Illness Initial comments: Dictation was produced using Broad[employer] Voice dictation software. please excuse any grammatical, word or spelling errors. Chief Complaint: 58-year-old female with past medical history of heart failure, COPD, CVA and alcohol abuse presents with suicidal ideation History of Present Illness: [age]-year-old female she has multiple comorbidities presents today with suicidal ideation. Patient states it is feeling suicidal for the past several weeks. She contacted EMS and was transferred to the emergency department. Patient states he drinks multiple beers a day. Denies any significant history of EtOH withdrawals. Patient is more concerned about her suicidality. She doesn't have a specific plan. Denies any homicidal ideation. No visual auditory hallucinations. The ROS documented in this emergency department record has been reviewed and confirmed by me. Those systems with pertinent positive or negative responses have been documented in the HPI. All other systems are other negative and/or noncontributory. PHYSICAL EXAM: General Impression: Alert and oriented x3, not in acute distress HEENT: Normocephalic atraumatic, extra-ocular movements intact, pupils equal and reactive to light bilaterally, mucous membranes moist. Cardiovascular: Heart regular rate and rhythm, S1&S2 audible, no murmurs, rubs or gallops Chest: Lungs clear to auscultation bilaterally, no rhonchi, no wheeze, no rales Abdomen: Bowel sounds present, abdomen soft, non-tender, non-distended, no organomegaly Musculoskeletal: Pulses present and equal in all extremities, no peripheral edema Motor: no focal deficits noted Neurological: CN II-XII grossly intact, no focal motor or sensory deficits noted Skin: Intact with no visualized rashes Psych: Tearful ED course: 58 yo feel presents with suicidal ideation. She is a alcohol abuser. Vital signs upon arrival are within acceptable limits. Patient's well- appearing. Patient's breath alcohol test is 0. Patient not showing any signs of withdrawal at this time. She is tearful. Patient given Zofran and 1 dose of Librium. Patient otherwise medically cleared for EPS evaluation. (Wilmer Moya) - Related Data Home Medications Medication Instructions Recorded Confirmed Magnesium Oxide 400 mg PO BID 03/09/18 03/17/19 Cetirizine HCl [Zyrtec] 10 mg PO DAILY PRN 04/15/18 03/17/19 Hydrochlorothiazide [Hydrodiuril] 25 mg PO DAILY 04/15/18 03/17/19 Metoprolol Tartrate [Lopressor] 25 mg PO BID 03/17/19 03/17/19 Previous Rx's Medication Instructions Recorded Sertraline [Zoloft] 50 mg PO HS #30 tab 10/29/17 traZODone HCL [Desyrel] 100 mg PO HS #30 tab 10/29/17 Allergies Allergy/AdvReac Type Severity Reaction Status Date / Time Iodinated Contrast- Oral and Allergy Unknown Verified 03/17/19 22:07 IV Dye [Iodinated Contrast Media - IV Dye] levofloxacin [From Levaquin] Allergy Anaphylaxis Verified 03/17/19 22:07 pregabalin [From Lyrica] AdvReac Nausea & Verified 03/17/19 22:07 Vomiting Review of Systems ROS Other: All systems not noted in ROS Statement are negative. <Wilmer Moya - Last Filed: 03/17/19 22:42> ROS Other: All systems not noted in ROS Statement are negative. <Rangel Henriquez - Last Filed: 03/18/19 02:15> ROS Statement: Those systems with pertinent positive or pertinent negative responses have been documented in the HPI. Past Medical History Past Medical History: Heart Failure, COPD, CVA/TIA, Hypertension, Liver Disease, Myocardial Infarction (AL), Osteoarthritis (OA), Pneumonia, Seizure Disorder, Sleep Apnea/CPAP/BIPAP Additional Past Medical History / Comment(s): Past alcohol withdrawal, chronic back pain, neuropathy bilateral lower extremities, hx R foot ulcer 2015, hx abdominal wound 2011, CVA 2002 affected rt eye vision but resolved in 6 months, continued numbness rt hand 4-5th fingers.CVA 2010 with numbness/tingling fingers and R leg weakness, hx TIA's, concussion from fall 2010, balance issues, UTIs, seizure history from etoh-yrs ago. Spot on liver, alcohol use related. Recent rib fracture, healed. Hx Pneumonia at 26 yrs of age. No CPAP use. Current left ankle fracture. Last Myocardial Infarction Date:: 2014 History of Any Multi-Drug Resistant Organisms: None Reported Date of last positivie culture/infection: None MDRO Source:: None Past Surgical History: Section, Hernia Repair Additional Past Surgical History / Comment(s): Ventral hernia repair x 4, Section X2, debridements of R foot and abdomin, colonoscopy, laparoscopy, seromas x 2 drained. Past Anesthesia/Blood Transfusion Reactions: No Reported Reaction Past Psychological History: Anxiety, Bipolar, Depression Smoking Status: Current every day smoker Past Alcohol Use History: Heavy Past Drug Use History: None Reported - Past Family History Father Additional Family Medical History / Comment(s): Father is alive at age 75 with no major medical problems. Mother Family Medical History: Cancer Additional Family Medical History / Comment(s): Mother at age 65 from breast cancer/bone. Brother(s) Additional Family Medical History / Comment(s): Patient has 1 brother that from a motor vehicle accident involving alcohol. Patient has no sisters. Patient has 1 son 21 years old and one daughter 23 years old and she has no contact with her children. <Wilmer Moya - Last Filed: 03/17/19 22:42> Course Vital Signs 03/17/19 21:45 Temperature 98 F Pulse Rate 73 Respiratory 18 Rate Blood Pressure 122/69 O2 Sat by Pulse 96 Oximetry Disposition <Wilmer Moya - Last Filed: 03/17/19 22:42> Is patient prescribed a controlled substance at d/c from ED?: No <Rangel Henriquez - Last Filed: 03/18/19 02:15> Clinical Impression: Mood disorder, Alcohol withdrawal, Alcohol use disorder, severe, dependence Disposition: HOME SELF-CARE Condition: Fair Referrals: Alfredo Thakkar MD [Primary Care Provider] - 1-2 days
[2019-03-17] MEDS ORDERED: chlordiazePOXIDE 25 MG CAP PO ONE (23:00)
[2019-03-18] MEDS ORDERED: LORazepam 2 MG/ML INJ IM STA (01:01)
[2019-03-18] MEDS ORDERED: IBUPROFEN 400 MG TAB PO PRN (02:11)
[2019-03-18] MEDS ORDERED: ONDANSETRON 4 MG/2 ML VIAL IVP PRN (02:11)
[2019-03-18] MEDS ORDERED: NALOXONE 0.4 MG/ML 1 ML VIAL IV PRN (02:11)
[2019-03-18] MEDS ORDERED: ACETAMINOPHEN TAB 325 MG TAB PO PRN (02:11)
[2019-03-18] MEDS ORDERED: THIAMINE 100 MG/ML 2 ML VIAL IM STA (02:14)
[2019-03-18] MEDS ORDERED: LORazepam 2 MG/ML INJ IV PRN ×2 (02:14)
[2019-03-18] MEDS: SODIUM CHLORIDE 0.9% 1,000 ML IV SCH ×2 (02:48→17:15)
[2019-03-18] MEDS: FAMOTIDINE 20 MG TAB PO SCH ×2 (09:14→21:08)
[2019-03-18] MEDS: MAGNESIUM OXIDE 400 MG TAB PO SCH ×2 (09:14→21:08)
[2019-03-18] MEDS: METOPROLOL TARTRATE 25 MG TAB PO SCH ×2 (09:15→21:08)
[2019-03-18] MEDS: LORazepam 2 MG/ML INJ IV PRN ×4 (09:33→21:16)
[2019-03-18 14:04] VITALS: BMI 36.0
[2019-03-18] MEDS ORDERED: LORATADINE 10 MG TAB PO PRN (16:42)
[2019-03-18] MEDS ORDERED: HYDROmorphone 0.5 MG/0.5 ML SYRINGE IVP PRN (16:45)
[2019-03-18] MEDS ORDERED: ALPRAZolam 0.25 MG TAB PO PRN (16:45)
--- NOTE | 2019-03-18 16:55 | P.CN ---
Psychiatric Consult - . Consult date: 03/18/19 Consult:: 03/18/19 16:42 IDENTIFYING DATA: This patient is a 50-year-old female with a history of depression and alcohol use who lives alone in a house is and remarried and has 2 kids. HISTORY OF PRESENT ILLNESS: The patient was brought into the hospital after contacting EMS stating that she was in with withdrawal from alcohol. Patient was also suicidal endorsing passive SI upon initial evaluation. Patient does have a history of having severe withdrawal including seizures in the past with visual hallucinations. Patient was put on CIWA every 2 hours and is currently given IV Ativan. Vital signs appear to be stable at this time. Psychiatry was consulted for alcohol intoxication and SI. Brazer Assembler spoke with nurse outside of patient's door and nurse claims that patient is depressed endorsing SI and has been buying her in bringing her alcohol at home. Patient was agreeable to speak to flex o writer operator at the bedside and appeared to be disheveled poor hygiene and poor grooming with a depressed affect however was cooperative and calm during the interview. Patient stated that she has been having an increase in her depression for the past 2 months states that she did go to a doctor who prescribes Zoloft for the past one month however states that she's been feeling worse. She also endorses anxiety, worrying about everything poor sleep and poor appetite along with suicidal ideations with multiple plans. Patient endorses having stresses in her life including realizing that her life isn't going anywhere feeling hopeless and helpless and also feeling alone in her house. Patient also spoke about her alcohol use that she has been drinking for years and currently is drinking approximately 12 beers along with 1 pint a day of liquor. She claims that her last drink was yesterday. She also states that she has had a DUI 2 in the past and spent time in long-term. 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 Patient also claims that she lost her children because of having too many cats in her home. At this time patient admits to suicidal ideations, with multiple plans however denies any homicidal ideations intent or plan. Patient denies any auditory, visual hallucinations and denies any paranoia or delusions. PAST PSYCHIATRIC HISTORY: Patient was last admitted to the mental health unit in 10/2018 for alcohol and depression. Patient has had multiple admits in the past to psych. is currently on Zoloft 50 mg daily and trazodone 100 mg daily she denies any previous suicide attempts in the past. PAST MEDICAL HISTORY: Admits to CHF, COPD, CVA, hypertension. ALLERGIES: And as per EMR. CHEMICAL DEPENDENCY HISTORY: Alcohol use as per EMR. Patient has had 2 DUIs in the past and spent time in long-term. She states that she is been in rehab twice in the past in 2002 and also in 2007. FAMILY PSYCHIATRIC/SUBSTANCE USE HISTORY: Claims her mother and brother both abuse alcohol. SOCIAL HISTORY: Patient currently lives in a house alone was initially and now remarried and has 2 kids. 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. Patient retired in 2003 due to pain and having hernias and also losing her kids.. MENTAL STATUS EXAM: General Appearance: Patient appears to be older than stated age is alert, pleasant and cooperative. Patient is obese and appears to be disheveled wearing a hospital gown. Behavior: Patient is calmly lying in bed without any agitated behavior. Speech: Patient's speech is fluent and nonpressured. Mood/Affect: Patient reports their mood is processed, affect is congruent and constricted Suicidality/Homicidality: Patient admits to suicidal ideations however no intent or plan. Perceptions: Patient denies any auditory or visual hallucinations. Though content/process: There is no evidence of any delusional thought content and thought process is linear and goal-directed. Depressive content and thoughts. Memory and concentration: AOX3, grossly intact for the purposes of this session. Can spell "WORLD" backwards Judgment and insight: fair IMPRESSIONS: Depressive disorder unspecified Anxiety disorder unspecified Alcohol use disorder moderate-severe, currently in withdrawal PLAN: -At this time patient does meet criteria for inpatient psychiatric admission. Patient is however currently in withdrawal and has a history of severe withdrawal symptoms including hallucinations and seizures. Continue with CIWA and monitoring vital signs and patient should be free from IV Ativan for at least 24-48 hours before patient will be acceptable for transfer to inpatient psych unit. -Would recommend the following medication changes/additions: Patient can continue with Zoloft 50 mg daily and trazodone 100 mg nightly for mood and insomnia. -Started 1:1 sitter for safety as patient is currently endorsing suicidal ideations. -Cannot leave AMA at this time. Patient will need a petition and certification if attempting to leave AMA. -When medically stable, patient is eligible for transfer to a psych bed when a vailable. Please arrange with EPS for bed. -Psychiatry will sign off at this point Thank you for the consult
--- NOTE | 2019-03-18 17:14 | XR ---
EXAMINATION TYPE: XR chest 1V portable DATE OF EXAM: 03/18/2019 COMPARISON: 03/09/2018 HISTORY: Heart failure. Short of breath TECHNIQUE: Single frontal view of the chest is obtained. FINDINGS: There is no heart failure nor confluent pneumonic infiltrate. Costophrenic angles are uyen r. Heart size is normal. IMPRESSION: No active cardiopulmonary disease. No change.
[2019-03-18] MEDS: NICOTINE 14MG/24HR PATCH TRANSDERM SCH (17:16)
[2019-03-18 17:30] LABS: Basophils # (A) 0.1 k/uL (0-0.2); Basophils % (A) 2 %; Eosinophils # (A) 0.1 k/uL (0-0.7); Eosinophils % (A) 2 %; HCT 38.4 % (34.0-46.0); HGB 13.9 gm/dL (11.4-16.0); Lymphocytes # (A) 1.1 k/uL (1.0-4.8); Lymphocytes % (A) 23 %; MCH 33.3 pg (25.0-35.0); MCHC 36.1 g/dL (31.0-37.0); Mean Platelet Volume 7.2; Monocytes # (A) 0.3 k/uL (0-1.0); Monocytes % (A) 6 %; Neutrophils # (A) 3.3 k/uL (1.3-7.7); Neutrophils % (A) 66 %; Platelet Count 141 k/uL (150-450); RBC 4.17 m/uL (3.80-5.40); RDW 12.9 % (11.5-15.5)
[2019-03-18] MEDS: THIAMINE 100 MG TAB PO SCH (17:30)
[2019-03-18 17:38] LABS: ALT 47 U/L (9-52); AST 86 U/L (14-36); African American GFR (CKD) >90 (>60 ml/min/1.73 sqM); Albumin 3.8 g/dL (3.5-5.0); Alkaline Phosphatase 45 U/L (38-126); Anion Gap 13 mmol/L; Blood Urea Nitrogen 7 mg/dL (7-17); Calcium 9.2 mg/dL (8.4-10.2); Carbon Dioxide 28 mmol/L (22-30); Chloride 85 mmol/L (98-107); Glucose 186 mg/dL (74-99); Sodium 126 mmol/L (137-145); Total Bilirubin 1.2 mg/dL (0.2-1.3); Total Protein 6.4 g/dL (6.3-8.2)
--- NOTE | 2019-03-18 20:37 | HP ---
HISTORY AND PHYSICAL DATE OF SERVICE: 03/18/2019 CHIEF COMPLAINTS: ETOH and severe anxiety, depression. HISTORY OF PRESENT ILLNESS: This 58-year-old woman with a past medical history of multiple medical problems, including CHF, COPD, CVA, TIA, hypertension, history of liver disease, myocardial infarction, history of pneumonia, seizure disorder, sleep apnea, being followed by Dr. Alfredo Thakkar in the outpatient setting, was complaining of severe anxiety and depression. The patient apparently had some suicidal ideation at the time of admission, but currently per staff there is no suicidal ideation. Patient is severely depressed. Patient was apparently drinking continuously, according to her. The patient came to [facility] and was admitted for further evaluation and treatment. There is no history of any fever, rigor or chills. No history of headache, loss of consciousness, seizures at this time. PAST MEDICAL HISTORY: 1. History of CHF. 2. COPD. 3. CVA, TIA. 4. Hypertension. 5. History of myocardial infarction. 6. DJD. 7. History of pneumonia. 8. Seizure disorder. 9. Sleep apnea. 10.Alcohol withdrawal. MEDICATIONS: Medications prior to admission include: 1. Desyrel 100 mg at bedtime. 2. Zoloft 50 mg at bedtime. 3. Lopressor 25 mg p.o. b.i.d. 4. Magnesium oxide 400 mg p.o. b.i.d. 5. HydroDIURIL 25 mg p.o. daily. 6. Zyrtec 10 mg daily p.r.n. ALLERGIES: 1. IODINATED CONTRAST DYES. 2. LEVAQUIN. 3. LYRICA. FAMILY HISTORY: History of cancer in the family. SOCIAL HISTORY: History of alcohol. History of smoking on a daily basis. REVIEW OF SYSTEMS: ENT: Diminished hearing. Diminished vision. CARDIOVASCULAR SYSTEM: No angina, palpitations. RESPIRATORY SYSTEM: Occasional cough. GI: No nausea, vomiting. : No dysuria or retention. NERVOUS SYSTEM: As mentioned earlier. ALLERGY/IMMUNOLOGY: No asthma, hayfever. MUSCULOSKELETAL: As mentioned earlier. HEMATOLOGY/ONCOLOGY: No history of anemia. ENDOCRINE: No history of diabetes, hypothyroidism. CONSTITUTIONAL: As mentioned earlier. DERMATOLOGY: Negative. RHEUMATOLOGY: Negative. PSYCHIATRY: As mentioned earlier. PHYSICAL EXAMINATION: Patient alert and oriented x2, confused. Pulse 70, blood pressure 120/73, respiration 14, temperature 97.7, pulse ox 96% on room air. HEENT: Conjunctivae normal. Oral mucosa moist. NECK: No jugular venous distention. No carotid bruit. No lymph node enlargement. CARDIOVASCULAR SYSTEM: S1, S2 muffled. RESPIRATORY SYSTEM: Breath sounds diminished at the bases. A few scattered rhonchi. No crackles. ABDOMEN: Soft, non-tender. No mass palpable. LEGS: No edema. No swelling. NERVOUS SYSTEM: Diffusely weak. LABS: Not available. ASSESSMENT: 1. Acute alcohol intoxication as well as delirium tremens, alcohol withdrawal symptoms. 2. Severe depression and anxiety. 3. History of congestive heart failure. 4. Chronic obstructive pulmonary disease. 5. Cerebrovascular accident, transient ischemic attack. 6. Hypertension. 7. History of liver disease. 8. History of myocardial infarction. 9. History of degenerative joint disease. 10.History of pneumonia. 11.History of seizure disorder. 12.History of sleep apnea. 13.History of fracture, right foot, and ulcer. 14.History of cerebrovascular incident. 15.History of seizures. 16.History of section. 17.History of ventral hernia repair. 18.Anxiety, bipolar depression. 19.Obesity with body mass index of 36. 20.FULL CODE. RECOMMENDATIONS AND DISCUSSION: In this 58-year-old woman who presented with multiple medical problems, at this time I recommend to continue current management, continue with symptomatic treatment. Otherwise, at this time I recommend [facility] protocol. Psychiatric consultation. Otherwise, resume the home medications. I would also order baseline labs and chest x- ray. Prognosis guarded because of multiple complex medical issues. Further recommendations to follow. A copy of this dictation is being forwarded to Dr. Thakkar, who is the primary physician. MMODL / IJN: [id number] /
[2019-03-18] MEDS: SERTRALINE 50 MG TAB PO SCH (21:08)
[2019-03-18] MEDS: HEPARIN SODIUM,PORCINE 5,000 UNIT/ML 1 ML VIAL SQ SCH (21:08)
[2019-03-18] MEDS: traZODone HCL 100 MG TAB PO SCH (21:08)
[2019-03-19] MEDS: FAMOTIDINE 20 MG TAB PO SCH (07:51)
[2019-03-19] MEDS: HEPARIN SODIUM,PORCINE 5,000 UNIT/ML 1 ML VIAL SQ SCH ×2 (07:51→21:00)
[2019-03-19] MEDS: NICOTINE 14MG/24HR PATCH TRANSDERM SCH (07:51)
[2019-03-19] MEDS: HYDROCHLOROTHIAZIDE 25 MG TAB PO SCH (07:51)
[2019-03-19] MEDS: THIAMINE 100 MG TAB PO SCH (07:51)
[2019-03-19] MEDS: PANTOPRAZOLE 40 MG TABLET PO SCH (07:51)
[2019-03-19] MEDS: METOPROLOL TARTRATE 25 MG TAB PO SCH ×2 (07:51→21:00)
[2019-03-19] MEDS: MAGNESIUM OXIDE 400 MG TAB PO SCH ×2 (07:51→21:00)
[2019-03-19] MEDS: LORazepam 2 MG/ML INJ IV PRN ×2 (08:31→10:42)
[2019-03-19] MEDS: HYDROcodone/APAP 5-325MG 1 EACH TAB PO PRN (08:33)
[2019-03-19 08:36] LABS: Appearance,Urine Clear (Clear); Bilirubin,Urine Negative (Negative); Blood,Urine Negative (Negative); Color,Urine Yellow; Glucose,Urine (UA) Negative (Negative); Ketones,Urine Negative (Negative); Leukocyte Esterase,Urine Negative (Negative); Nitrite,Urine Negative (Negative); PH, Urine 6.5 (5.0-8.0); Protein,Urine Negative (Negative); Specific Gravity,Urine 1.004 (1.001-1.035); Urobilinogen,Urine <2.0 mg/dL (<2.0)
[2019-03-19 09:02] LABS: African American GFR (CKD) >90 (>60 ml/min/1.73 sqM); Anion Gap 9 mmol/L; Blood Urea Nitrogen 6 mg/dL (7-17); Calcium 9.1 mg/dL (8.4-10.2); Carbon Dioxide 29 mmol/L (22-30); Chloride 92 mmol/L (98-107); Glucose 176 mg/dL (74-99); Potassium 3.2 mmol/L (3.5-5.1); Sodium 130 mmol/L (137-145)
[2019-03-19 09:28] LABS: Basophils % (A) 1 %; Eosinophils # (A) 0.1 k/uL (0-0.7); Eosinophils % (A) 3 %; HCT 39.7 % (34.0-46.0); HGB 14.1 gm/dL (11.4-16.0); Hyperchromasia Slight; Lymphocytes # (A) 0.8 k/uL (1.0-4.8); Lymphocytes % (A) 21 %; MCH 33.2 pg (25.0-35.0); MCHC 35.5 g/dL (31.0-37.0); MCV 93.6 fL (80.0-100.0); Mean Platelet Volume 7.6; Monocytes # (A) 0.2 k/uL (0-1.0); Monocytes % (A) 6 %; Neutrophils # (A) 2.4 k/uL (1.3-7.7); Neutrophils % (A) 68 %; Platelet Count 129 k/uL (150-450); RBC 4.24 m/uL (3.80-5.40); RDW 14.9 % (11.5-15.5); WBC 3.6 k/uL (3.8-10.6)
[2019-03-19] MEDS ORDERED: POTASSIUM CHLORIDE ER 20 MEQ TAB.ER PO STA (09:59)
[2019-03-19] MEDS ORDERED: Potassium Replacement Protocol 1 EACH MISC MISCELLANE PRN (13:30)
[2019-03-19] MEDS ORDERED: Magnesium Replacement Protocol 1 EACH MISC MISCELLANE PRN (13:30)
[2019-03-19] MEDS: LORazepam 1 MG TAB PO PRN ×3 (13:50→23:09)
[2019-03-19] MEDS: SODIUM CHLORIDE 0.9% 1,000 ML with POTASSIUM CHLORIDE 20 MEQ, MVI, ADULT NO.4 WITH VIT ... IV SCH ×5 (15:09)
[2019-03-19] MEDS: SERTRALINE 50 MG TAB PO SCH (21:00)
[2019-03-19] MEDS: traZODone HCL 100 MG TAB PO SCH (21:00)
--- NOTE | 2019-03-19 21:19 | PN ---
PROGRESS NOTE DATE OF SERVICE: 03/19/2019. This 58-year-old woman who was admitted with acute alcohol intoxication and delirium tremens, being closely monitored. Patient is rather unsteady at this time. Psychiatry evaluation progress at this time. Otherwise, the patient is on [facility] protocol. Chest x- ray showed no acute changes. No chest pain. No palpitations. Sensorium was significantly improved yesterday. Minimal confusion present. REVIEW OF SYSTEMS: Cardiovascular systems: No angina or palpitations. Respirations: As mentioned earlier. GASTROINTESTINAL: No nausea or vomiting. : No dysuria. CENTRAL NERVOUS SYSTEM: As mentioned earlier. CURRENT MEDICATIONS ARE: 1. Tylenol 650 q.6h p.r.n. 2. [place] 5 mg. 3. Xanax. 4. HydroDIURIL. 5. Dilaudid. 6. Motrin. 7. Claritin. 8. Ativan. 9. Magnesium oxide. 10.Lopressor. 11.Narcan. 12.Habitrol. 13.Zofran. 14.Zoloft. 15.Trazodone. 16.Doses reviewed. EXAM: Pulse 64. Blood pressure 130/67, respiration 20, temperature 98.1, pulse ox 98% on room air. HEENT: Conjunctivae normal. NECK: No JVD. CARDIOVASCULAR: S1, S2 muffled. RESPIRATION: Breath sounds diminished in the bases. Few rhonchi. No crackles. ABDOMEN is soft, nontender. LEGS are no edema. No swelling. NERVOUS SYSTEM: Diffuse tremors and weakness. LABS: WBC 3.6, platelets are 129. Sodium 130, potassium 3.2. ASSESSMENT: 1. Acute alcohol intoxication as well as delirium tremens, alcohol withdrawal syndrome. 2. Severe depression, anxiety. 3. History of congestive heart failure. 4. Hyponatremia. 5. Hypokalemia. 6. Mild leukopenia, neutropenia. 7. Chronic obstructive pulmonary disease history. 8. Cerebrovascular accident, transient ischemic attack. 9. Hypertension. 10.History of liver disease. 11.History of myocardial infarction. 12.History of degenerative joint disease. 13.History of pneumonia. 14.History of seizure disorder. 15.History of sleep apnea. 16.History of right foot fracture. 17.History of cerebrovascular accident. 18.History of seizure disorder. 19.History of section. 20.History of ventral hernia repair. 21.Anxiety, bipolar depression. 22.Obesity with body mass index of 36. 23.FULL CODE. RECOMMENDATIONS AND DISCUSSION: Recommend to continue current medications, continue to monitor, symptomatic treatment. Otherwise, at this time, I recommend continue with [facility] protocol. Otherwise, I would recommend supplement potassium. Change IV fluids to banana bag. See orders for details. Guarded prognosis because of multiple complex medical issues. Further recommendations to follow. We will continue to monitor. Once the patient is more steady, patient be fit to be transferred to psych floor. Otherwise, currently the patient had features of mild delirium tremens. We will continue to monitor. See orders for details. DT precautions. Seizure precaution. Further recommendations to follow. MMODL / IJN: [id number] /
[2019-03-20] MEDS: SODIUM CHLORIDE 0.9% 1,000 ML with POTASSIUM CHLORIDE 20 MEQ, MVI, ADULT NO.4 WITH VIT ... IV SCH ×10 (02:48→13:26)
[2019-03-20] MEDS: NICOTINE 14MG/24HR PATCH TRANSDERM SCH (07:47)
[2019-03-20] MEDS: HEPARIN SODIUM,PORCINE 5,000 UNIT/ML 1 ML VIAL SQ SCH ×2 (07:52→21:30)
[2019-03-20] MEDS: PANTOPRAZOLE 40 MG TABLET PO SCH (07:52)
[2019-03-20] MEDS: MAGNESIUM OXIDE 400 MG TAB PO SCH ×2 (07:52→21:31)
[2019-03-20] MEDS: METOPROLOL TARTRATE 25 MG TAB PO SCH ×2 (07:52→21:31)
[2019-03-20] MEDS: HYDROCHLOROTHIAZIDE 25 MG TAB PO SCH (07:52)
[2019-03-20] MEDS: LORazepam 1 MG TAB PO PRN ×5 (07:53→21:31)
[2019-03-20] MEDS: HYDROcodone/APAP 5-325MG 1 EACH TAB PO PRN (07:53)
[2019-03-20 08:58] LABS: African American GFR (CKD) >90 (>60 ml/min/1.73 sqM); Anion Gap 7 mmol/L; Blood Urea Nitrogen 5 mg/dL (7-17); Calcium 8.9 mg/dL (8.4-10.2); Carbon Dioxide 29 mmol/L (22-30); Chloride 99 mmol/L (98-107); Glucose 168 mg/dL (74-99); Magnesium 1.8 mg/dL (1.6-2.3); Potassium 3.6 mmol/L (3.5-5.1); Sodium 135 mmol/L (137-145)
[2019-03-20 09:49] LABS: Basophils % (A) 1 %; Eosinophils # (A) 0.1 k/uL (0-0.7); Eosinophils % (A) 3 %; HCT 38.8 % (34.0-46.0); HGB 13.7 gm/dL (11.4-16.0); Lymphocytes % (A) 31 %; MCH 33.7 pg (25.0-35.0); MCHC 35.4 g/dL (31.0-37.0); MCV 95.2 fL (80.0-100.0); Mean Platelet Volume 7.5; Monocytes # (A) 0.2 k/uL (0-1.0); Monocytes % (A) 6 %; Neutrophils # (A) 1.8 k/uL (1.3-7.7); Neutrophils % (A) 57 %; Platelet Count 129 k/uL (150-450); RBC 4.08 m/uL (3.80-5.40); RDW 15.2 % (11.5-15.5); WBC 3.1 k/uL (3.8-10.6)
--- NOTE | 2019-03-20 18:36 | PN ---
PROGRESS NOTE DATE OF SERVICE: 03/20/2019. This 58-year-old woman who was admitted with acute alcohol intoxication also has severe depression and anxiety. The psych cannot access the patient today because of lack of staff per staff on the 4th floor. No chest pain. No palpitations. No fever. EXAM: Alert and oriented x2. Pulse 65, blood pressure 160/84, respiration 18, temperature 98 degrees, pulse ox 98% on room air. HEENT: Conjunctivae normal. NECK: No jugular venous distention. CARDIOVASCULAR: S1, S2 muffled. RESPIRATORY: Breath sounds diminished in the bases. No rhonchi. No crackles. ABDOMEN is soft, nontender. CENTRAL NERVOUS SYSTEM: No focal deficits. LEGS: Legs are no edema. No swelling. LABS: WBC 3.2, hemoglobin 13.7, sodium 135. ASSESSMENT: 1. Acute alcohol intoxication as well as delirium tremens acute with alcohol withdrawal syndrome. 2. Severe depression, anxiety. 3. History of congestive failure heart failure. 4. Hyponatremia. 5. Hypokalemia. 6. Mild leukopenia, neutropenia. 7. Chronic obstructive pulmonary disease history. 8. Cerebrovascular accident, transient ischemic attack. 9. Hypertension. 10.History of liver disease. 11.History of myocardial infarction. 12.History of degenerative joint disease. 13.History of pneumonia. 14.History of seizure disorder. 15.History of obstructive sleep apnea. 16.History of right foot fracture. 17.History of CVI. 18.History of seizure disorder. 19.History of section. 20.History of ventral hernia repair. 21.Anxiety/bipolar depression. 22.Obesity with body mass index of 36. 23.FULL CODE. RECOMMENDATIONS AND DISCUSSION: Continue current medications. Continue to monitor. Symptomatic treatment. Otherwise, at this time, I would recommend to continue to closely follow with Psychiatry. Once the patient is stable and the patient may be transferred to psych floor. Dr. Alfredo Thakkar will follow tomorrow. See orders for further details. MMODL / IJN: [id number] /
[2019-03-20] MEDS: SERTRALINE 50 MG TAB PO SCH (21:31)
[2019-03-20] MEDS: traZODone HCL 100 MG TAB PO SCH (21:31)
[2019-03-21] MEDS: SODIUM CHLORIDE 0.9% 1,000 ML with POTASSIUM CHLORIDE 20 MEQ, MVI, ADULT NO.4 WITH VIT ... IV SCH ×5 (04:38)
[2019-03-21] MEDS: HYDROCHLOROTHIAZIDE 25 MG TAB PO SCH (08:09)
[2019-03-21] MEDS: PANTOPRAZOLE 40 MG TABLET PO SCH (08:09)
[2019-03-21] MEDS: METOPROLOL TARTRATE 25 MG TAB PO SCH (08:09)
[2019-03-21] MEDS: HEPARIN SODIUM,PORCINE 5,000 UNIT/ML 1 ML VIAL SQ SCH (08:09)
[2019-03-21] MEDS: MAGNESIUM OXIDE 400 MG TAB PO SCH (08:09)
[2019-03-21] MEDS: NICOTINE 14MG/24HR PATCH TRANSDERM SCH (08:09)
[2019-03-21] MEDS: LORazepam 1 MG TAB PO PRN (08:40)
[2019-03-21 09:12] LABS: Basophils % (A) 1 %; Eosinophils # (A) 0.1 k/uL (0-0.7); Eosinophils % (A) 3 %; HCT 38.2 % (34.0-46.0); HGB 13.2 gm/dL (11.4-16.0); Lymphocytes # (A) 0.8 k/uL (1.0-4.8); Lymphocytes % (A) 26 %; MCH 32.4 pg (25.0-35.0); MCHC 34.6 g/dL (31.0-37.0); MCV 93.6 fL (80.0-100.0); Mean Platelet Volume 7.3; Monocytes # (A) 0.2 k/uL (0-1.0); Monocytes % (A) 7 %; Neutrophils # (A) 1.9 k/uL (1.3-7.7); Neutrophils % (A) 61 %; Platelet Count 125 k/uL (150-450); RBC 4.08 m/uL (3.80-5.40); RDW 13.2 % (11.5-15.5); WBC 3.1 k/uL (3.8-10.6)
[2019-03-21 09:23] LABS: African American GFR (CKD) >90 (>60 ml/min/1.73 sqM); Anion Gap 6 mmol/L; Blood Urea Nitrogen 5 mg/dL (7-17); Calcium 9.1 mg/dL (8.4-10.2); Carbon Dioxide 34 mmol/L (22-30); Chloride 94 mmol/L (98-107); Glucose 150 mg/dL (74-99); Potassium 3.5 mmol/L (3.5-5.1); Sodium 134 mmol/L (137-145)
--- NOTE | 2019-03-21 10:59 | CDI ---
Documentation Clarification Form Date: 03/21/2019 10:44:04 AM From: Renetta Stevenson RN, CCDS Admit Date: 03/19/2019 1:35:00 PM Patient Name: Anupama Howell Visit Number: [id number] Discharge Date: ATTENTION: The Clinical Documentation Specialists (CDI) and [facility] Coding Staff appreciate your assistance in clarifying documentation. Please respond to the clarification below the line at the bottom and electronically sign. The CDI & [facility] Coding staff will review the response and follow-up if needed. Please note: Queries are made part of the Legal Health Record. If you have any questions, please contact the author of this message via ITS. Dr. Alfredo Thakkar History of Congestive heart failure is documented in the H/P and progress notes and additional clarification is needed. History/Risk Factors: COPD, CVA, Alcohol abuse, Heart failure Clinical Indicators: VS/Pulse OX: 122/69 73 18 98 96 % RA BNP: Echocardiogram Results: (11/10/18) Overall left ventricular systolic function is normal with, an EF between 55-60 % Chest X Ray: No active cardiopulmonary disease Treatment: Lopressor 25 mg PO BID Hydrodiuril 25 PO Daily In your professional opinion, can you please clarify the acuity and type of CHF if known? Chronic Diastolic Heart Failure: Unable to Determine Other, please specify (Last Revision: October 2017) MTDD
--- NOTE | 2019-03-21 11:46 | P.PN ---
Subjective Patient resting in bed. States improvement. Cleared medically to go to mental health unit. Patient is agreeable to that Objective - Vital Signs Vital signs: Vital Signs Temp 98.4 F 03/21/19 05:46 Pulse 67 03/21/19 05:46 Resp 20 03/21/19 05:46 BP 160/87 03/21/19 05:46 Pulse Ox 96 03/21/19 05:46 Intake & Output 03/20/19 03/21/19 03/21/19 18:59 06:59 18:59 Intake Total 400 Balance 400 Intake: Oral 400 Other: Voiding Method Toilet Toilet # Voids 1 2 - Constitutional General appearance: Present: mild distress - EENT Eyes: Present: PERRLA Ears: bilateral: normal - Neck Neck: Present: normal ROM - Respiratory Respiratory: bilateral: CTA - Cardiovascular Rhythm: regular - Gastrointestinal General gastrointestinal: Present: soft - Integumentary Integumentary Comment(s): Facial rosacea Integumentary: Present: normal - Neurologic Neurologic: Present: CNII-XII intact - Psychiatric Psychiatric: Present: A&O x's 3, appropriate affect, intact judgment & insight - Labs CBC & Chem 7: 03/21/19 07:37 03/21/19 07:37 Labs: Abnormal Lab Results - Last 24 Hours (Table) 03/21/19 03/21/19 Range/Units 07:37 07:37 WBC 3.1 L (3.8-10.6) k/uL Plt Count 125 L (150-450) k/uL Lymphocytes # 0.8 L (1.0-4.8) k/uL Sodium 134 L (137-145) mmol/L Chloride 94 L (98-107) mmol/L Carbon Dioxide 34 H (22-30) mmol/L BUN 5 L (7-17) mg/dL Glucose 150 H (74-99) mg/dL - Imaging and Cardiology Chest x-ray: report reviewed Assessment and Plan Plan: Assessment Acute alcohol intoxication as well as delirium tremors acute with alcohol withdrawal syndrome Severe depression/anxiety Noted in history of congestive heart failure. Echo shows normal heart function. Patient does have history of coronary disease with AL Hyponatremia Hypokalemia History of COPD stable History of CVA/TIA Hypertension History of liver disease Seizure disorder Sleep apnea Obesity BMI 36 Plan Medically cleared to go to mental health unit
[2019-03-21 15:34] VITALS: BP 135/83; PULSE 72; RESP 16; TEMP 97.5
--- NOTE | 2019-03-22 11:23 | P.DS ---
Providers Date of admission: 03/19/19 13:35 Expected date of discharge: 03/21/19 Attending physician: Alfredo Thakkar Consults: 03/18/19 02:11 Consult Physician Routine Consulting Provider: Eduard Hsu Consult Reason/Comments: Mood disorder. Alcohol withdrawal Do you want consulting provider notified?: Yes Primary care physician: Alfredo Thakkar Hospital Course: 58-year-old female was admitted to the emergency room with acute alcohol intoxication severe depression and anxiety. Patient was exhibiting signs of delirium tremors and acute alcohol withdrawal. Patient was evaluated by psychiatry and approved for admission to the mental health unit Assessment Acute alcohol intoxication with delirium tremors and acute alcohol withdrawal syndrome Severe depression/anxiety Chart shows history of congestive heart failure but a 2-D echo shows normal heart function Hyponatremia Hypokalemia Chronic COPD hypertension coronary disease with history of [place] Seizure disorder Sleep apnea Plan Transfer to mental health care unit Patient Condition at Discharge: Fair Plan - Discharge Summary Discharge Rx Participant: No New Discharge Prescriptions: New Folic Acid 1 mg PO DAILY #30 tablet Nicotine 14Mg/24Hr Patch [Habitrol] 1 patch TRANSDERM DAILY patch Multivitamins, Thera [Multivitamin] 1 tab PO DAILY #30 tablet Acetaminophen Tab [Tylenol] 650 mg PO Q6HR PRN tab PRN Reason: Mild Pain Or Fever > 100.5 Thiamine [Vitamin B-1] 100 mg PO DAILY #30 tablet Continue Sertraline [Zoloft] 50 mg PO HS #30 tab traZODone HCL [Desyrel] 100 mg PO HS #30 tab Magnesium Oxide 400 mg PO BID Hydrochlorothiazide [Hydrodiuril] 25 mg PO DAILY Cetirizine HCl [Zyrtec] 10 mg PO DAILY PRN PRN Reason: Allergy Symptoms Metoprolol Tartrate [Lopressor] 25 mg PO BID Discharge Medication List Sertraline [Zoloft] 50 mg PO HS #30 tab 10/29/17 [Rx] traZODone HCL [Desyrel] 100 mg PO HS #30 tab 10/29/17 [Rx] Magnesium Oxide 400 mg PO BID 03/09/18 [History] Cetirizine HCl [Zyrtec] 10 mg PO DAILY PRN 04/15/18 [History] Hydrochlorothiazide [Hydrodiuril] 25 mg PO DAILY 04/15/18 [History] Metoprolol Tartrate [Lopressor] 25 mg PO BID 03/17/19 [History] Acetaminophen Tab [Tylenol] 650 mg PO Q6HR PRN tab 03/20/19 [Rx] Folic Acid 1 mg PO DAILY #30 tablet 03/20/19 [Rx] Multivitamins, Thera [Multivitamin] 1 tab PO DAILY #30 tablet 03/20/19 [Rx] Nicotine 14Mg/24Hr Patch [Habitrol] 1 patch TRANSDERM DAILY patch 03/20/19 [Rx] Thiamine [Vitamin B-1] 100 mg PO DAILY #30 tablet 03/20/19 [Rx] Follow up Appointment(s)/Referral(s): Alfredo Thakkar MD [Primary Care Provider] - 1-2 days (pt admitted to mental health unit. ) Patient Instructions/Handouts: Abuse of Alcohol (DC) Discharge Disposition: TRANSFER TO PSYCH HOSP/UNIT
--- NOTE | 2019-03-24 11:18 | P.PN ---
Progress Note - Text Clarification on the heart failure Heart failure listed as problem unable to determine systolic or diastolic and normal echo
== END 2019-03-21 16:18 | DRG 897 ==
LOC: EC 21:43 → 4MS4W 03-18 02:11 → OBSVTOIN 03-19 13:35
PROVIDERS: ADMIT Family Medicine; ATTEND Family Medicine
DX: F10.231 Alcohol dependence with withdrawal delirium (principal); F31.30 Bipolar disorder, current episode depressed, mild or moderate severity, unspecified; E87.1 Hypo-osmolality and hyponatremia; R45.851 Suicidal ideations; F10.221 Alcohol dependence with intoxication delirium; I11.0 Hypertensive heart disease with heart failure; E66.9 Obesity, unspecified; D70.9 Neutropenia, unspecified; E87.6 Hypokalemia; F17.200 Nicotine dependence, unspecified, uncomplicated; F41.9 Anxiety disorder, unspecified; G40.909 Epilepsy, unspecified, not intractable, without status epilepticus; G47.33 Obstructive sleep apnea (adult) (pediatric); J44.9 Chronic obstructive pulmonary disease, unspecified; Z68.36 Body mass index [BMI] 36.0-36.9, adult; Z88.8 Allergy status to other drugs, medicaments and biological substances; Z88.1 Allergy status to other antibiotic agents; Z91.041 Radiographic dye allergy status; I25.2 Old myocardial infarction; Z79.899 Other long term (current) drug therapy; Z80.3 Family history of malignant neoplasm of breast; Z86.73 Personal history of transient ischemic attack (TIA), and cerebral infarction without residual deficits; Z87.01 Personal history of pneumonia (recurrent)
CPT/HCPCS: 71045; 80048; 80053; 81003; 82075; 83735; 84132; 85025; 96372; 99285

== ENCOUNTER 2019-03-21 15:29 | Inpatient (IN) | payer MEDICARE, MEDICAID ==
[2019-03-21] MEDS ORDERED: LORATADINE 10 MG TAB PO PRN (16:28)
[2019-03-21] MEDS ORDERED: ACETAMINOPHEN TAB 325 MG TAB PO PRN (16:28)
[2019-03-21] MEDS ORDERED: MAG HYDROX/AL HYDROX/SIMETH 30 ML CUP PO PRN (16:43)
[2019-03-21] MEDS ORDERED: LORazepam 1 MG TAB PO PRN (16:43)
[2019-03-21] MEDS ORDERED: MAGNESIUM HYDROXIDE 2,400 MG/10 ML CUP PO PRN (16:43)
[2019-03-21] MEDS ORDERED: ZIPRASIDONE 20 MG VIAL IM PRN (16:43)
[2019-03-21] MEDS ORDERED: LORazepam 2 MG/ML INJ IM PRN (16:47)
[2019-03-21] MEDS ORDERED: LORazepam 1 MG TAB PO STA (17:58)
[2019-03-21] MEDS: traZODone HCL 100 MG TAB PO SCH (21:38)
[2019-03-21] MEDS: MAGNESIUM OXIDE 400 MG TAB PO SCH (21:38)
[2019-03-21] MEDS: METOPROLOL TARTRATE 25 MG TAB PO SCH (21:38)
[2019-03-21] MEDS: LORazepam 1 MG TAB PO SCH (21:38)
[2019-03-21] MEDS: SERTRALINE 50 MG TAB PO SCH (21:38)
[2019-03-22] MEDS: LORazepam 1 MG TAB PO SCH ×6 (01:59→21:42)
[2019-03-22] MEDS: HYDROCHLOROTHIAZIDE 25 MG TAB PO SCH (06:04)
[2019-03-22] MEDS: METOPROLOL TARTRATE 25 MG TAB PO SCH ×2 (06:04→21:40)
[2019-03-22 08:12] LABS: Basophils % (A) 1 %; Eosinophils # (A) 0.1 k/uL (0-0.7); Eosinophils % (A) 2 %; HCT 41.7 % (34.0-46.0); HGB 14.3 gm/dL (11.4-16.0); Lymphocytes # (A) 1.2 k/uL (1.0-4.8); Lymphocytes % (A) 26 %; MCH 32.5 pg (25.0-35.0); MCHC 34.4 g/dL (31.0-37.0); MCV 94.4 fL (80.0-100.0); Mean Platelet Volume 7.2; Monocytes # (A) 0.3 k/uL (0-1.0); Monocytes % (A) 7 %; Neutrophils % (A) 64 %; Platelet Count 157 k/uL (150-450); RBC 4.41 m/uL (3.80-5.40); RDW 13.4 % (11.5-15.5); WBC 4.6 k/uL (3.8-10.6)
[2019-03-22 08:19] LABS: ALT 89 U/L (9-52); AST 154 U/L (14-36); African American GFR (CKD) >90 (>60 ml/min/1.73 sqM); Alkaline Phosphatase 46 U/L (38-126); Anion Gap 8 mmol/L; Blood Urea Nitrogen 6 mg/dL (7-17); Calcium 9.9 mg/dL (8.4-10.2); Carbon Dioxide 35 mmol/L (22-30); Chloride 92 mmol/L (98-107); Cholesterol 174 mg/dL (<200); Glucose 173 mg/dL (74-99); HDL Cholesterol 55 mg/dL (40-60); LDL Cholesterol,Calculated 81 mg/dL (0-99); Potassium 3.9 mmol/L (3.5-5.1); Sodium 135 mmol/L (137-145); Total Bilirubin 1.2 mg/dL (0.2-1.3); Total Protein 6.9 g/dL (6.3-8.2); Triglycerides 189 mg/dL (<150)
[2019-03-22] MEDS: MAGNESIUM OXIDE 400 MG TAB PO SCH ×2 (08:38→21:40)
[2019-03-22] MEDS: THIAMINE 100 MG TAB PO SCH (08:38)
[2019-03-22] MEDS: MULTIVITAMINS, THERA 1 EACH TAB PO SCH (08:38)
[2019-03-22] MEDS: FOLIC ACID 1 MG TAB PO SCH (08:38)
[2019-03-22] MEDS: NICOTINE 14MG/24HR PATCH TRANSDERM SCH (08:39)
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
--- NOTE | 2019-03-22 11:36 | P.CONS ---
History of Present Illness - History of Present Illness 58-year-old female was admitted from the emergency room to medical floor with acute alcohol intoxication and severe depression/anxiety. Patient was evaluated by psychiatry and deemed a candidate for admission to the mental health unit. Patient was stabilized and transferred to the mental health unit. Patient also has a history of chronic COPD history of CVA/TIA hypertension coronary artery disease with history of ME Review of Systems Neurological: Reports tremors Past Medical History Past Medical History: Heart Failure, COPD, CVA/TIA, Hypertension, Liver Disease, Myocardial Infarction (ME), Osteoarthritis (OA), Pneumonia, Seizure Disorder, Sleep Apnea/CPAP/BIPAP Additional Past Medical History / Comment(s): Past alcohol withdrawal, chronic back pain, neuropathy bilateral lower extremities, hx R foot ulcer 2015, hx abdominal wound 2011, CVA 2002 affected rt eye vision but resolved in 6 months, continued numbness rt hand 4-5th fingers.CVA 2010 with numbness/tingling fingers and R leg weakness, hx TIA's, concussion from fall 2010, balance issues, UTIs, seizure history from etoh-yrs ago. Spot on liver, alcohol use related. Recent rib fracture, healed. Hx Pneumonia at 26 yrs of age. No CPAP use. Current left ankle fracture. Last Myocardial Infarction Date:: 2014 History of Any Multi-Drug Resistant Organisms: None Reported Year Discovered:: None MDRO Source:: None Past Surgical History: Section, Hernia Repair Additional Past Surgical History / Comment(s): Ventral hernia repair x 4, Section X2, debridements of R foot and abdomin, colonoscopy, laparoscopy, seromas x 2 drained. Past Anesthesia/Blood Transfusion Reactions: No Reported Reaction Past Psychological History: Anxiety, Bipolar, Depression Additional Psychological History / Comment(s): pt stated she has been for 15 years but her lives [address] in his own home. she has 1 dog( a bull masiff) and 14 cats She uses a cane prn. She cannot drive. She uses the [facility] bus. Smoking Status: Current every day smoker Past Alcohol Use History: Heavy Additional Past Alcohol Use History / Comment(s): Patient states she usually drinks anywhere from 4-6 "tall boys" daily as well as some liquor. Uncertain of exact amount. Smokes ciagrette, reports less than 5 a day. Denies needing a nicotine patch. Past Drug Use History: None Reported - Past Family History Father Additional Family Medical History / Comment(s): Father is alive at age 75 with no major medical problems. Mother Family Medical History: Cancer Additional Family Medical History / Comment(s): Mother at age 65 from breast cancer/bone. Brother(s) Additional Family Medical History / Comment(s): Patient has 1 brother that from a motor vehicle accident involving alcohol. Patient has no sisters. Patient has 1 son 21 years old and one daughter 23 years old and she has no contact with her children. Medications and Allergies Home Medications Medication Instructions Recorded Confirmed Type Sertraline [Zoloft] 50 mg PO HS #30 tab 10/29/17 03/21/19 Rx traZODone HCL [Desyrel] 100 mg PO HS #30 tab 10/29/17 03/21/19 Rx Magnesium Oxide 400 mg PO BID 03/09/18 03/21/19 History Cetirizine HCl [Zyrtec] 10 mg PO DAILY PRN 04/15/18 03/21/19 History Hydrochlorothiazide [Hydrodiuril] 25 mg PO DAILY 04/15/18 03/21/19 History Metoprolol Tartrate [Lopressor] 25 mg PO BID 03/17/19 03/21/19 History Acetaminophen Tab [Tylenol] 650 mg PO Q6HR PRN tab 03/20/19 03/21/19 Rx Folic Acid 1 mg PO DAILY #30 tablet 03/20/19 03/21/19 Rx Multivitamins, Thera [Multivitamin] 1 tab PO DAILY #30 tablet 03/20/19 03/21/19 Rx Nicotine 14Mg/24Hr Patch [Habitrol] 1 patch TRANSDERM DAILY patch 03/20/19 03/21/19 Rx Thiamine [Vitamin B-1] 100 mg PO DAILY #30 tablet 03/20/19 03/21/19 Rx Allergies Allergy/AdvReac Type Severity Reaction Status Date / Time Iodinated Contrast- Oral and Allergy Unknown Verified 03/17/19 22:07 IV Dye [Iodinated Contrast Media - IV Dye] levofloxacin [From Levaquin] Allergy Anaphylaxis Verified 03/17/19 22:07 pregabalin [From Lyrica] AdvReac Nausea & Verified 03/17/19 22:07 Vomiting Physical Exam Vitals: Vital Signs Temp Pulse Pulse Resp BP BP Pulse Ox 03/22/19 10:36 88 18 139/76 03/22/19 08:30 74 152/80 03/22/19 06:37 98.7 F 69 18 173/81 03/22/19 02:05 98.3 F 70 16 133/77 03/21/19 21:48 92 154/89 03/21/19 18:18 73 129/64 03/21/19 17:55 82 197/104 03/21/19 17:45 82 182/95 03/21/19 16:45 97.9 F 75 16 135/92 96 Intake and Output 03/21/19 03/22/19 03/22/19 22:59 06:59 14:59 Other: Weight 104.5 kg - Constitutional General appearance: mild distress, obese - EENT Eyes: PERRLA - Respiratory Respiratory: bilateral: CTA - Cardiovascular Rhythm: regular - Gastrointestinal General gastrointestinal: soft - Integumentary Diego face Integumentary: normal - Musculoskeletal Musculoskeletal: gait normal - Psychiatric Psychiatric: A&O x's 3, appropriate affect, intact judgment & insight Results CBC & Chem 7: 03/22/19 07:15 03/22/19 07:15 Labs: Abnormal Lab Results - Last 24 Hours (Table) 03/22/19 Range/Units 07:15 Sodium 135 L (137-145) mmol/L Chloride 92 L (98-107) mmol/L Carbon Dioxide 35 H (22-30) mmol/L BUN 6 L (7-17) mg/dL Glucose 173 H (74-99) mg/dL AST 154 H (14-36) U/L ALT 89 H (9-52) U/L Triglycerides 189 H (<150) mg/dL Chest x-ray: report reviewed Assessment and Plan Plan: Assessment Acute alcohol intoxication with alcohol withdrawal syndrome Suicidal ideation History of anxiety/bipolar depression CHF listed in history echo normal COPD stable history of CVA/TIA Hypertension Coronary disease with history of ME Seizure disorder Sleep apnea Obesity BMI 36 Plan Will be evaluated and treated by psychiatry in the mental health unit
[2019-03-22 21:20] LABS: Hemoglobin A1C 6.3 % (4.0-6.0)
[2019-03-22] MEDS: SERTRALINE 50 MG TAB PO SCH (21:40)
[2019-03-22] MEDS: traZODone HCL 100 MG TAB PO SCH (21:40)
[2019-03-23] MEDS: LORazepam 1 MG TAB PO SCH ×7 (01:59→23:58)
[2019-03-23] MEDS: THIAMINE 100 MG TAB PO SCH (09:06)
[2019-03-23] MEDS: NICOTINE 14MG/24HR PATCH TRANSDERM SCH (09:06)
[2019-03-23] MEDS: MAGNESIUM OXIDE 400 MG TAB PO SCH ×2 (09:06→22:18)
[2019-03-23] MEDS: HYDROCHLOROTHIAZIDE 25 MG TAB PO SCH (09:06)
[2019-03-23] MEDS: MULTIVITAMINS, THERA 1 EACH TAB PO SCH (09:06)
[2019-03-23] MEDS: FOLIC ACID 1 MG TAB PO SCH (09:06)
[2019-03-23] MEDS: METOPROLOL TARTRATE 25 MG TAB PO SCH ×2 (09:06→22:18)
--- NOTE | 2019-03-23 10:20 | P.PN ---
Progress Note - Text Interval history: The patient's found in her room she follows me to an interview room. She indicates her mood is sad she's been tearful she states that she has the worst case of homesickness ever. She states that she misses her cats. She was able to speak with her via phone and states that conversation went well but provided no detail. She continues to refuse the idea of attending inpatient chemical dependency treatment. She states that she went through that [facility] times in [facility] the last one being in 2017. She informs me that she signed a notice to withdraw her voluntary status yesterday and we discussed the implications of that decision. She has no questions regarding the Zoloft at this time. CIWA scores are reviewed they've ranged anywhere from 0-7 lately. Mental status exam: The patient is an overweight female she is dressed in hospital gowns. She has a disheveled appearance. She demonstrates some psychomotor slowing. Eye contact is appropriate speech is fluent spontaneous nonpressured. She reports a depressed mood she demonstrates some tearful affect during our interaction. She denies having any suicidal or homicidal ideation or overt this point she is trying to facilitate a discharge. She is reporting no homicidal ideation intent or plan. She reports no auditory or visual hallucinations or any specific delusions there is no objective evidence of psychosis. She demonstrates no tangential thinking loose associations or flight of ideas. She does seem to have some difficulty with concentration and tracking the conversation at times. She is oriented to person place and date. Insight and judgment impaired. With outstretched arms she demonstrates a fine tremor of her upper trimming trees. Depression/plan: Major depressive disorder, alcohol use disorder, the patient will be continued on her current medications, we will reduce the Ativan to every 6 hours. We will continue to monitor CIWA scores and her vital signs directly. She has not been participating in the milieu she is instructed to participate in groups to develop coping skills. She continues to not want to have any other medication prescribed her alcohol use disorder continues to refuse inpatient chemical dependency treatment. Her questions regarding her voluntary status were answered. If she does not withdraw the AMA form and requires further hospitalization after the 72 hours we will pursue a petition and clinical certificate.
[2019-03-23] MEDS: SERTRALINE 50 MG TAB PO SCH (22:18)
[2019-03-23] MEDS: traZODone HCL 100 MG TAB PO SCH (22:18)
[2019-03-24] MEDS: LORazepam 1 MG TAB PO SCH ×2 (06:11→16:34)
[2019-03-24] MEDS: THIAMINE 100 MG TAB PO SCH (09:06)
[2019-03-24] MEDS: MAGNESIUM OXIDE 400 MG TAB PO SCH ×2 (09:06→22:00)
[2019-03-24] MEDS: MULTIVITAMINS, THERA 1 EACH TAB PO SCH (09:06)
[2019-03-24] MEDS: FOLIC ACID 1 MG TAB PO SCH (09:06)
[2019-03-24] MEDS: HYDROCHLOROTHIAZIDE 25 MG TAB PO SCH (09:06)
[2019-03-24] MEDS: METOPROLOL TARTRATE 25 MG TAB PO SCH ×2 (09:07→22:00)
[2019-03-24] MEDS: NICOTINE 14MG/24HR PATCH TRANSDERM SCH (09:07)
--- NOTE | 2019-03-24 10:15 | P.PN ---
Progress Note - Text Interval history: The patient is found in group she follows me to an interview room. She indicates that she is trying to attend some groups now. She continues to have concern for her pets. Social work note was reviewed, her was contacted. He commented on the condition of the home and indicated he would continue to be supportive. The patient continues to refuse inpatient chemical dependency treatment. She states that she had gotten some information from staff yesterday regarding AA. Again we went through all of the negative sequela of her continued use of alcohol. Vital signs reviewed. CIWA scores are improving. We discussed needing to taper her off of Ativan prior to her discharge. Mental status exam: The patient is alert she has a disheveled appearance. She has erythema of her face she states from rosacea. Eye contact is appropriate. She is dressed in hospital gowns. She continues to demonstrate some psychomotor slowing. She describes a mood that is down and anxious. She indicates she feels safe in the hospital. She reports no homicidal ideation. She is endorsing no auditory or visual hallucinations or any specific delusions. There is no observed evidence of psychosis. Thought process is linear she demonstrates no signs of hypomania or spike. She demonstrates no verbal or physical aggressiveness. She continues to demonstrate a fine tremor of both upper extremities when outstretched. Insight and judgment limited. Impression/plan: Depression, alcohol use disorder, continue medication as written however I will titrate the Zoloft to 100 mg daily in an attempt to further address depressive and anxiety symptoms. She is agreeable to this medication change. Continue trazodone as written. She states that she had been on clonidine in the past for anxiety but we will defer that is an option as her blood pressure continues to fluctuate. We will continue to monitor vital signs including CIWA scores. I will reduce the scheduled Ativan to 1 mg 3 times a day. We discussed that she will not leave the mental health unit with that medication so we need to taper off prior to discharge. She is encouraged to continue participating in groups fully. He requires continued psychiatric hospitalization.
[2019-03-24 17:08] LABS: Appearance,Urine Clear (Clear); Bilirubin,Urine Negative (Negative); Blood,Urine Negative (Negative); Color,Urine Light Yellow; Glucose,Urine (UA) Negative (Negative); Ketones,Urine Negative (Negative); Leukocyte Esterase,Urine Negative (Negative); Nitrite,Urine Negative (Negative); PH, Urine 7.5 (5.0-8.0); Protein,Urine Negative (Negative); Specific Gravity,Urine 1.003 (1.001-1.035); Urobilinogen,Urine <2.0 mg/dL (<2.0)
[2019-03-24] MEDS: traZODone HCL 100 MG TAB PO SCH (22:00)
[2019-03-24] MEDS: SERTRALINE 100 MG TAB PO SCH (22:00)
[2019-03-25] MEDS: MULTIVITAMINS, THERA 1 EACH TAB PO SCH (08:54)
[2019-03-25] MEDS: FOLIC ACID 1 MG TAB PO SCH (08:54)
[2019-03-25] MEDS: HYDROCHLOROTHIAZIDE 25 MG TAB PO SCH (08:54)
[2019-03-25] MEDS: LORazepam 1 MG TAB PO SCH ×3 (08:54→16:49)
[2019-03-25] MEDS: METOPROLOL TARTRATE 25 MG TAB PO SCH ×2 (08:54→21:33)
[2019-03-25] MEDS: MAGNESIUM OXIDE 400 MG TAB PO SCH ×2 (08:54→21:33)
[2019-03-25] MEDS: NICOTINE 14MG/24HR PATCH TRANSDERM SCH (08:55)
[2019-03-25] MEDS: THIAMINE 100 MG TAB PO SCH (08:55)
--- NOTE | 2019-03-25 11:07 | P.PN ---
Progress Note - Text Interval history: The patient is found in group she follows me to an interview room. She states that her mood is improving each day. She indicates she is sleeping better appetite stable. She has no questions or concerns regarding medication. CIWA scores are reviewed. She appears to be tolerating the Ativan taper. She describes more future oriented thinking. Mental status exam: The patient is an overweight female she has a disheveled appearance hygiene is adequate she is dressed in hospital gowns. Speech is fluent spontaneous nonpressured. She reports mood is improving she feels safe in the hospital. She reports no homicidal ideation intent or plan. She reports no auditory or visual hallucinations or any specific delusions there is no observed evidence of psychosis. She does not appear to be hypomanic or manic. She appears to be less tremulous. Insight and judgment improving. She is engaging more in conversation. Impression/plan: Major depressive disorder, alcohol use disorder, the patient will continue on her current medications we will continue to taper off the Ativan over the weekend. He requires continued psychiatric hospitalization. She may be appropriate for discharge early next week depending on her clinical status and safety risk. Continue monitoring vitals we will change the CIWA monitoring to every 8 hours.
--- NOTE | 2019-03-25 15:11 | PN ---
PROGRESS NOTE I am covering for Dr. Thakkar. DATE OF SERVICE: 03/25/2019 This 58-year-old woman, admitted with alcohol intoxication and other multiple issues, is being closely monitored on the psych floor at this time. The patient is much more alert and sober. The patient is also complaining of facial rash on the nose and both cheeks, some itching, as well as a cutaneous reddish rash on the left forearm. No chest pain. No palpitations. No fever. On exam, alert and oriented x3. Pulse 68, blood pressure 135/72, respiration 18, temperature 98.6, pulse ox 97% on room air. HEENT: Conjunctivae normal. NECK: No jugular venous distention. CARDIOVASCULAR SYSTEM: S1, S2 muffled. RESPIRATORY SYSTEM: Breath sounds diminished at the bases. No rhonchi. No crackles. ABDOMEN: Soft, non-tender. No mass palpable. LEGS: No edema. No swelling. NERVOUS SYSTEM: No focal deficit. EXAMINATION OF THE FACE: Erythematous rash present. Rash on the left forearm also present. LABS: Sodium 135. LFTs are noted. ASSESSMENT: 1. Facial rash, for evaluation. Possible rosacea. 2. Subcutaneous nodule, possibly cellulitis, on the left forearm. 3. History of ethanol. 4. Possible alcoholic hepatitis. 5. Chronic obstructive pulmonary disease. 6. Congestive heart failure. 7. Hypertension. 8. History of liver disease. 9. History of degenerative joint disease. 10.History of pneumonia. 11.History of seizure disorder. 12.Sleep apnea. 13.History of peripheral neuropathy. 14.History of anxiety, bipolar, depression. RECOMMENDATIONS AND DISCUSSION: I recommend to continue current medications, continue with the monitoring, symptomatic treatment. Will continue to monitor. I would also recommend a course of antibiotics for the subcutaneous lesion on the left forearm. Otherwise, local treatment. See orders for further details. Closely follow with Dr. Thakkar in the outpatient setting. Further recommendations to follow. MMODL / IJN: [id number] /
[2019-03-25] MEDS: traZODone HCL 100 MG TAB PO SCH (21:34)
[2019-03-25] MEDS: SERTRALINE 100 MG TAB PO SCH (21:34)
[2019-03-25] MEDS: SULFAMETHOX-TMP 800-160MG 1 EACH TAB PO SCH (21:34)
[2019-03-26] MEDS: LORazepam 1 MG TAB PO SCH ×4 (01:55→21:25)
[2019-03-26] MEDS: MAGNESIUM OXIDE 400 MG TAB PO SCH ×2 (08:36→21:25)
[2019-03-26] MEDS: SULFAMETHOX-TMP 800-160MG 1 EACH TAB PO SCH ×2 (08:36→21:25)
[2019-03-26] MEDS: FOLIC ACID 1 MG TAB PO SCH (08:36)
[2019-03-26] MEDS: HYDROCHLOROTHIAZIDE 25 MG TAB PO SCH (08:36)
[2019-03-26] MEDS: THIAMINE 100 MG TAB PO SCH (08:37)
[2019-03-26] MEDS: NICOTINE 14MG/24HR PATCH TRANSDERM SCH (08:37)
[2019-03-26] MEDS: METOPROLOL TARTRATE 25 MG TAB PO SCH ×2 (08:37→21:25)
[2019-03-26] MEDS: MULTIVITAMINS, THERA 1 EACH TAB PO SCH (08:37)
--- NOTE | 2019-03-26 08:50 | P.PN ---
Progress Note - Text Interval history: The patient is found in the hallway she follows me to an interview room. She reports that her mood continues to stabilize. She asked that we try Vistaril again as we did use it during her last admission. She indicates she slept last night staff report she slept 6 hours. Appetite stable. She was seen by internal medicine for the infection on her arm and she was started on Bactrim. She is looking forward to being discharged. We reviewed the Zoloft and her questions were answered. Mental status exam: The patient is an overweight alert female appearing her stated age. She presents with improved hygiene grooming she is dressed in hospital gowns. Eye contact is appropriate. She is cooperative upon approach she is more reactive during the session. Psychomotor slowing is reducing. She reports no acute suicidal or homicidal ideation intent or plan. She is reporting no auditory or visual hallucinations or specific delusions. There is no observed evidence of psychosis. She demonstrates no tangential thinking loose associations or flight of ideas. She does not appear hypomanic or manic. Insight and judgment improving. She is oriented to person place and date. Impression/plan: Depression, alcohol use disorder, the patient will continue on her current psychotropic medication. We will trial Vistaril again for anxiety symptoms. We discussed side effects of that medication. We will reduce the Ativan to 1 mg twice daily as we continue to taper off of the benzodiazepine. We will continue to monitor for safety and encourage participation in the milieu. She may be appropriate for discharge as soon as Thursday. I'll signs reviewed.
[2019-03-26] MEDS: hydrOXYzine PAMOATE 25 MG CAP PO PRN (16:41)
[2019-03-26] MEDS: SERTRALINE 100 MG TAB PO SCH (21:25)
[2019-03-26] MEDS: traZODone HCL 100 MG TAB PO SCH (21:25)
[2019-03-27] MEDS: NICOTINE 14MG/24HR PATCH TRANSDERM SCH (08:57)
[2019-03-27] MEDS: LORazepam 1 MG TAB PO SCH ×2 (08:59→20:49)
[2019-03-27] MEDS: THIAMINE 100 MG TAB PO SCH (08:59)
[2019-03-27] MEDS: MAGNESIUM OXIDE 400 MG TAB PO SCH ×2 (08:59→20:49)
[2019-03-27] MEDS: HYDROCHLOROTHIAZIDE 25 MG TAB PO SCH (08:59)
[2019-03-27] MEDS: MULTIVITAMINS, THERA 1 EACH TAB PO SCH (09:00)
[2019-03-27] MEDS: SULFAMETHOX-TMP 800-160MG 1 EACH TAB PO SCH ×2 (09:00→20:49)
[2019-03-27] MEDS: FOLIC ACID 1 MG TAB PO SCH (09:00)
[2019-03-27] MEDS: METOPROLOL TARTRATE 25 MG TAB PO SCH ×2 (09:00→20:49)
--- NOTE | 2019-03-27 11:33 | P.PN ---
Progress Note - Text Interval history: The patient is found in the hallway she follows me to an interview room. She indicates her mood is improving. She slept well last night appetite stable. She has been attending groups. She has been speaking with her over the phone. She continues to do well in terms of being tapered off of the Ativan and CIWA scores are quite low blood pressure is good today. Mental status exam: The patient is alert she is dressed in hospital gowns hygiene adequate. Speech is fluent spontaneous nonpressured. She is pleasant and cooperative. She is reporting no suicidal ideation intent or plan. She is endorsing no auditory or visual hallucinations or any specific delusions. She does not appear to be hypomanic or manic. She demonstrates no verbal or physical aggressiveness. Insight and judgment improving. She demonstrates future oriented thinking. Plan: The patient will continue on her current psychotropic medications. She is clinically stabilizing. Vital signs reviewed. We will anticipate a discharge tomorrow if she remains clinically stable. She is encouraged to continue participating in the milieu.
[2019-03-27] MEDS: hydrOXYzine PAMOATE 25 MG CAP PO PRN (14:45)
[2019-03-27] MEDS: traZODone HCL 100 MG TAB PO SCH (20:49)
[2019-03-27] MEDS: SERTRALINE 100 MG TAB PO SCH (20:49)
[2019-03-27 20:54] VITALS: PULSE 75
[2019-03-28 06:52] VITALS: BP 173/73; RESP 18; TEMP 98.4
--- NOTE | 2019-03-28 07:47 | DS ---
DISCHARGE SUMMARY DATE OF ADMISSION: 03/21/2019 DATE OF DISCHARGE: 03/28/2019 ADMISSION AND DISCHARGE DIAGNOSES: 1. Major depressive disorder, recurrent, severe, without psychosis. 2. Alcohol use disorder, severe. HISTORY OF PRESENTING ILLNESS: The patient is a 58-year-old female. She was admitted to the medical floor for acute alcohol intoxication and alcohol withdrawal symptoms. She was diagnosed with delirium tremens. Following stabilization, she continued to be depressed and had suicidal thinking and as such was transferred to the psychiatric unit for further evaluation and treatment. She has a long history of alcohol dependence and abuse. She reported drinking 12 beers and one pint of liquor daily. She has had multiple psychiatric hospitalizations. It was documented that this was her tenth inpatient admission since August 09, 2015. Her last admission to this facility was October,. Current psychotropic medication was Zoloft 50 mg a day. She had a significant history of complicating medical conditions. She was admitted for further evaluation. PAST MEDICAL HISTORY AND PHYSICAL EXAM: As per medical consultation of RUTH Marcos and Dr. Wilson, I refer to his admission note of 03/18/2019 for details. MENTAL STATUS EXAM: The patient had a disheveled appearance. She had fine tremor in upper extremities. Her mood was depressed. She had an anxious affect. She had suicide thoughts at the time of admission. There was no indication of thought disorder. Thought process was clear. She had difficulty with short-term memory. She was oriented and alert. COURSE OF HOSPITALIZATION: The patient was admitted for comprehensive medical psychiatric and psychosocial evaluation. We engaged the patient in individual and group therapeutic activities. On admission, the patient was continued on Zoloft 50 mg a day. Early on in her hospital stay, the patient was quite depressed in spite of chronic long-term problems with drinking. She was refusing a referral for inpatient chemical dependency treatment. She was seen by Dr. Wilson in medical consultation for a facial rash. As her hospitalization progressed, her mood gradually improved. She made effort to attend activity. She engaged appropriately in the groups. She was appropriate in her interactions and cooperative with care. CONDITION AT DISCHARGE: Her mood was stable and improving. She voiced no thoughts of harm to self or others. She tolerated her psychotropic medications. CIWA scores were zero and were at a level of 5 or less throughout her psychiatric admission. RECOMMENDATIONS AND FOLLOWUP: Patient is discharged to home. Discharge Medications: 1. Zoloft 100 mg a day. 2. Ativan 0.5 mg twice a day with a 30-tablet supply and no refills. 3. Trazodone 100 mg at bedtime. Refer to discharge records for follow-up care. MMODL / IJN: [id number] / MTDD
[2019-03-28] MEDS: MULTIVITAMINS, THERA 1 EACH TAB PO SCH (09:06)
[2019-03-28] MEDS: METOPROLOL TARTRATE 25 MG TAB PO SCH (09:06)
[2019-03-28] MEDS: SULFAMETHOX-TMP 800-160MG 1 EACH TAB PO SCH (09:06)
[2019-03-28] MEDS: LORazepam 1 MG TAB PO SCH (09:06)
[2019-03-28] MEDS: FOLIC ACID 1 MG TAB PO SCH (09:06)
[2019-03-28] MEDS: NICOTINE 14MG/24HR PATCH TRANSDERM SCH (09:06)
[2019-03-28] MEDS: HYDROCHLOROTHIAZIDE 25 MG TAB PO SCH (09:07)
[2019-03-28] MEDS: THIAMINE 100 MG TAB PO SCH (09:07)
[2019-03-28] MEDS: MAGNESIUM OXIDE 400 MG TAB PO SCH (09:07)
[2019-03-28] MEDS: hydrOXYzine PAMOATE 25 MG CAP PO PRN (10:36)
== END 2019-03-28 14:00 | disposition home or self-care (01) | DRG 885 ==
LOC: 3MHU 16:27
PROVIDERS: ADMIT Psychiatry & Neurology Psychiatry; ATTEND Psychiatry & Neurology Psychiatry
DX: F33.2 Major depressive disorder, recurrent severe without psychotic features (principal); R45.851 Suicidal ideations; F17.200 Nicotine dependence, unspecified, uncomplicated; E66.9 Obesity, unspecified; F43.22 Adjustment disorder with anxiety; G40.909 Epilepsy, unspecified, not intractable, without status epilepticus; G47.30 Sleep apnea, unspecified; I11.0 Hypertensive heart disease with heart failure; I25.10 Atherosclerotic heart disease of native coronary artery without angina pectoris; I50.9 Heart failure, unspecified; J44.9 Chronic obstructive pulmonary disease, unspecified; I25.2 Old myocardial infarction; Z68.36 Body mass index [BMI] 36.0-36.9, adult; Z79.899 Other long term (current) drug therapy; Z80.3 Family history of malignant neoplasm of breast; Z86.73 Personal history of transient ischemic attack (TIA), and cerebral infarction without residual deficits; Z87.01 Personal history of pneumonia (recurrent); Z91.410 Personal history of adult physical and sexual abuse; Z88.1 Allergy status to other antibiotic agents; Z88.8 Allergy status to other drugs, medicaments and biological substances
CPT/HCPCS: 80053; 80061; 81003; 83036; 84443; 85025

== ENCOUNTER 2019-05-09 09:49 | Observation (INO) | payer MEDICARE ==
--- NOTE | 2019-05-09 10:55 | ED ---
General Adult HPI - General Chief complaint: Skin/Abscess/Foreign Body Stated complaint: infection on left arm Time Seen by Provider: 05/09/19 10:11 Source: patient, RN notes reviewed Mode of arrival: ambulatory Limitations: no limitations - History of Present Illness Initial comments: 58-year-old female with a past medical history of heart failure, COPD, CVA, hypertension, hyperlipidemia, [place], seizure disorder presents to the emergency department for a chief complaint of possible "infection of the left arm". Patient states she started off with a small pimple or mosquito bite 2 months ago on the left forearm. States that it has continued to increase in size. Patient states that she saw her primary care provider several times for this. He states that she was started on Bactrim and March and then finished Levaquin on 04/20/2019. Patient has not had any fevers. Patient saw her primary care provider today to have this removed. However they stated it had a foul smell and sent her to the emergency department.Patient has no other complaints at this time including shortness of breath, chest pain, abdominal pain, nausea or vomiting, headache, or visual changes. - Related Data Home Medications Medication Instructions Recorded Confirmed Hydrochlorothiazide [Hydrodiuril] 25 mg PO DAILY 04/15/18 05/09/19 Metoprolol Tartrate [Lopressor] 25 mg PO BID 03/17/19 05/09/19 Ranitidine HCl [Zantac] 75 mg PO BID 05/09/19 05/09/19 traZODone HCL [Desyrel] 150 mg PO HS 05/09/19 05/09/19 Previous Rx's Medication Instructions Recorded Multivitamins, Thera [Multivitamin 1 tab PO DAILY #30 tablet 03/20/19 (formulary)] Sertraline [Zoloft] 100 mg PO HS #30 tab 03/28/19 Allergies Allergy/AdvReac Type Severity Reaction Status Date / Time Iodinated Contrast Media Allergy Unknown Verified 05/09/19 10:20 [Iodinated Contrast Media - IV Dye] pregabalin [From Lyrica] AdvReac Nausea & Verified 05/09/19 10:20 Vomiting Review of Systems ROS Statement: Those systems with pertinent positive or pertinent negative responses have been documented in the HPI. ROS Other: All systems not noted in ROS Statement are negative. Past Medical History Past Medical History: Heart Failure, COPD, CVA/TIA, Hypertension, Liver Disease, Myocardial Infarction ([place]), Osteoarthritis (OA), Pneumonia, Seizure Disorder, Sleep Apnea/CPAP/BIPAP Additional Past Medical History / Comment(s): Past alcohol withdrawal, chronic back pain, neuropathy bilateral lower extremities, hx R foot ulcer 2015, hx abd ominal wound 2011, CVA 2003 affected rt eye vision but resolved in 6 months, continued numbness rt hand 4-5th fingers.CVA 2010 with numbness/tingling fingers and R leg weakness, hx TIA's, concussion from fall 2010, balance issues, UTIs, seizure history from etoh-yrs ago. Spot on liver, alcohol use related. Recent rib fracture, healed. Hx Pneumonia at 26 yrs of age. No CPAP use. Current left ankle fracture. Last Myocardial Infarction Date:: 2014 History of Any Multi-Drug Resistant Organisms: None Reported Date of last positivie culture/infection: None MDRO Source:: None Past Surgical History: Section, Hernia Repair Additional Past Surgical History / Comment(s): Ventral hernia repair x 4, Section X2, debridements of R foot and abdomin, colonoscopy, laparoscopy, seromas x 2 drained. Past Anesthesia/Blood Transfusion Reactions: No Reported Reaction Past Psychological History: Anxiety, Bipolar, Depression Smoking Status: Current every day smoker Past Alcohol Use History: Abuse, Heavy Past Drug Use History: None Reported - Past Family History Father Additional Family Medical History / Comment(s): Father is alive at age 75 with no major medical problems. Mother Family Medical History: Cancer Additional Family Medical History / Comment(s): Mother at age 65 from breast cancer/bone. Brother(s) Additional Family Medical History / Comment(s): Patient has 1 brother that from a motor vehicle accident involving alcohol. Patient has no sisters. Patient has 1 son 21 years old and one daughter 23 years old and she has no contact with her children. General Exam Limitations: no limitations General appearance: alert, in no apparent distress Head exam: Present: atraumatic, normocephalic, normal inspection Eye exam: Present: normal appearance, PERRL, EOMI. Absent: scleral icterus, conjunctival injection, periorbital swelling ENT exam: Present: normal exam, mucous membranes moist Neck exam: Present: normal inspection, full ROM. Absent: tenderness, meningismus, lymphadenopathy Respiratory exam: Present: normal lung sounds bilaterally. Absent: respiratory distress, wheezes, rales, rhonchi, stridor Cardiovascular Exam: Present: regular rate, normal rhythm, normal heart sounds. Absent: systolic murmur, diastolic murmur, rubs, gallop, clicks Extremities exam: Present: normal capillary refill (Capillary refill less than 2 seconds, radial pulse 2+ in the left upper extremity.), other (Patient has a 3 cm x 3 cm erythematous ulcerating lesion of the radial aspect of the left forearm. There is no surrounding erythema. There is no purulent drainage.) Course Vital Signs 05/09/19 09:53 Temperature 98 F Pulse Rate 74 Respiratory 18 Rate Blood Pressure 183/72 O2 Sat by Pulse 97 Oximetry - Reevaluation(s) Reevaluation #1: 05/09/19 10:55 A culture of the wound was performed on 04/06/2019 and there was no growth. Medical Decision Making - Medical Decision Making On examination patient has a raised erythematous ulcerating lesion of the right forearm. This does not appear overtly infected at this time. We did perform a culture as we were able to express white thick sebaceous-like fluid from the area. Wound was also examined by Dr. Zaragoza. X-ray shows skin lesion. No bone lesion. Blood work is pending. Discussed this case with Dr. Thakkar who will admit patient. Patient has seen Dr. Jaimes in the past, he will be consulted for possible biopsy. Disposition Clinical Impression: Skin lesion Disposition: ADMITTED IP TO THIS [facility] Condition: Fair Is patient prescribed a controlled substance at d/c from ED?: No Referrals: Alfredo Thakkar MD [Primary Care Provider] - 1-2 days Time of Disposition: 11:59
[2019-05-09] MEDS ORDERED: SODIUM CHLORIDE 0.9% 500 ML 500 ML IV STA (11:10)
--- NOTE | 2019-05-09 11:26 | XR ---
Left forearm HISTORY: Possible abscess swelling 2 views of the left forearm There is a soft tissue prominence present in the lateral aspect of the midforearm the volar aspect me asuring 2.6 cm which is indeterminate. Bone mineralization, joint spaces and alignment are maintained . No radiopaque foreign body evident. IMPRESSION: Correlate for skin lesion. No periostitis to suggest osteomyelitis.
[2019-05-09] MEDS ORDERED: NALOXONE 0.4 MG/ML 1 ML VIAL IV PRN (11:59)
[2019-05-09 12:21] LABS: Basophils % (A) 1 %; Eosinophils # (A) 0.1 k/uL (0-0.7); Eosinophils % (A) 1 %; HCT 41.1 % (34.0-46.0); HGB 14.4 gm/dL (11.4-16.0); Lymphocytes # (A) 1.1 k/uL (1.0-4.8); Lymphocytes % (A) 19 %; MCH 33.8 pg (25.0-35.0); MCHC 35.1 g/dL (31.0-37.0); MCV 96.3 fL (80.0-100.0); Mean Platelet Volume 6.3; Monocytes # (A) 0.2 k/uL (0-1.0); Monocytes % (A) 4 %; Neutrophils # (A) 4.1 k/uL (1.3-7.7); Neutrophils % (A) 73 %; Platelet Count 155 k/uL (150-450); RBC 4.27 m/uL (3.80-5.40); RDW 14.4 % (11.5-15.5); WBC 5.6 k/uL (3.8-10.6)
[2019-05-09] MEDS: SODIUM CHLORIDE 0.9% 1,000 ML IV SCH (12:22)
[2019-05-09 12:32] LABS: ALT 47 U/L (9-52); AST 66 U/L (14-36); African American GFR (CKD) >90 (>60 ml/min/1.73 sqM); Albumin 4.3 g/dL (3.5-5.0); Alkaline Phosphatase 47 U/L (38-126); Anion Gap 10 mmol/L; Blood Urea Nitrogen 6 mg/dL (7-17); Calcium 9.9 mg/dL (8.4-10.2); Carbon Dioxide 22 mmol/L (22-30); Chloride 103 mmol/L (98-107); Glucose 129 mg/dL (74-99); Non-African American GFR(CKD) >90 (>60 ml/min/1.73 sqM); Potassium 4.8 mmol/L (3.5-5.1); Sodium 135 mmol/L (137-145); Total Bilirubin 1.3 mg/dL (0.2-1.3); Total Protein 7.3 g/dL (6.3-8.2)
[2019-05-09] MEDS: traMADol 50 MG TAB PO PRN ×2 (12:56→20:22)
[2019-05-09] MEDS ORDERED: INFLUENZA VACCINE (6 MOS+) 60 MCG/0.5 ML SYRINGE IM ONE (14:36)
--- NOTE | 2019-05-09 17:59 | P.GSCN ---
History of Present Illness Consult date: 05/09/19 Reason for Consult: Left forearm skin lesion History of present illness: Patient minute of the hospital because of possible infection left arm. Patient says over the last 2 months she has had a growth increasing in size left forearm. She thinks this was related to a mosquito bite. She's been on antibiotics for this without improvement. She apparently was in the office today in her primary care decided against excision given the size. We are asked to see this patient for biopsy or excision. Apparently she has an appointment to see Dr. Jaimes next week. No history of skin cancer previously. There is discoloration of the site today but she states this was not present prior to them squeezing on it in the emergency department. Review of Systems The patient denies any acute changes in vision or hearing, no dysphagia or odynophagia, no chest pain or shortness of breath, no dysuria or hematuria, no h eadache, no runny nose, no rectal bleeding or melena, no unexplained weight loss Past Medical History Past Medical History: Heart Failure, COPD, CVA/TIA, Diabetes Mellitus, Hypertension, Liver Disease, Myocardial Infarction ([place]), Osteoarthritis ([place]), Pneumonia, Seizure Disorder Additional Past Medical History / Comment(s): ETOH abuse, past alcohol withdrawal, chronic back pain, neuropathy bilateral lower extremities, hx R foot ulcer 2015, hx abdominal wound 2011, CVA 2002 affected rt eye vision but resolved in 6 months, continued numbness rt hand 4-5th fingers, CVA 2010 with numbness/tingling fingers and R leg weakness, hx TIA's, concussion from fall 2010, balance issues, NIDDM-pt states diet controlled, [place] per EKG, UTIs, seizure history from etoh-yrs ago, spot on liver, rib fractures, past L ankle fracture, Last Myocardial Infarction Date:: 2014 per EKG History of Any Multi-Drug Resistant Organisms: None Reported Year Discovered:: None MDRO Source:: None Past Surgical History: Section, Hernia Repair, Orthopedic Surgery, Tonsillectomy Additional Past Surgical History / Comment(s): Ventral hernia repair x 4, Section X2, debridements of R foot and abdomin, colonoscopy, laparoscopy, seromas x 2 drained, bilateral ganglion cystectomy. Past Anesthesia/Blood Transfusion Reactions: No Reported Reaction Smoking Status: Current every day smoker - Past Family History Father Additional Family Medical History / Comment(s): Father is alive at age 78 with no major medical problems. Mother Family Medical History: Cancer Additional Family Medical History / Comment(s): Mother at age 65 from breast cancer/bone. Brother(s) Additional Family Medical History / Comment(s): Patient has 1 brother that from a motor vehicle accident involving alcohol. Patient has no sisters. Patient has 1 son 21 years old and one daughter 23 years old and she has no contact with her children. Medications and Allergies Home Medications Medication Instructions Recorded Confirmed Type Hydrochlorothiazide [Hydrodiuril] 25 mg PO DAILY 04/15/18 05/09/19 History Metoprolol Tartrate [Lopressor] 25 mg PO BID 03/17/19 05/09/19 History Multivitamins, Thera [Multivitamin 1 tab PO DAILY #30 tablet 03/20/19 05/09/19 Rx (formulary)] Sertraline [Zoloft] 100 mg PO HS #30 tab 03/28/19 05/09/19 Rx Ranitidine HCl [Zantac] 75 mg PO BID 05/09/19 05/09/19 History traZODone HCL [Desyrel] 150 mg PO HS 05/09/19 05/09/19 History Allergies Allergy/AdvReac Type Severity Reaction Status Date / Time Iodinated Contrast Media Allergy Unknown Verified 05/09/19 10:20 [Iodinated Contrast Media - IV Dye] pregabalin [From Lyrica] AdvReac Nausea & Verified 05/09/19 10:20 Vomiting Surgical - Exam Vital Signs Temp Pulse Resp BP Pulse Ox 98 F 74 18 183/72 97 05/09/19 09:53 05/09/19 09:53 05/09/19 09:53 05/09/19 09:53 05/09/19 09:53 Physical exam: General: Well-developed, well-nourished HEENT: Normocephalic, sclerae nonicteric Abdomen: Nontender, nondistended Extremities: No edema, 2-2.5 cm ulcerated skin lesion, edges are thickened and elevated, some discoloration and ecchymosis from recent trauma, ulcerated in the middle, no adenopathy Neuro: Alert and oriented Results - Labs 05/09/19 11:20 05/09/19 11:20 Abnormal Lab Results - Last 24 Hours (Table) 05/09/19 Range/Units 11:20 Sodium 135 L (137-145) mmol/L BUN 6 L (7-17) mg/dL Glucose 129 H (74-99) mg/dL AST 66 H (14-36) U/L Diabetes panel 05/09/19 Range/Units 11:20 Sodium 135 L (137-145) mmol/L Potassium 4.8 (3.5-5.1) mmol/L Chloride 103 (98-107) mmol/L Carbon Dioxide 22 (22-30) mmol/L BUN 6 L (7-17) mg/dL Creatinine 0.58 (0.52-1.04) mg/dL Glucose 129 H (74-99) mg/dL Calcium 9.9 (8.4-10.2) mg/dL AST 66 H (14-36) U/L ALT 47 (9-52) U/L Alkaline Phosphatase 47 (38-126) U/L Total Protein 7.3 (6.3-8.2) g/dL Albumin 4.3 (3.5-5.0) g/dL Calcium panel 05/09/19 Range/Units 11:20 Calcium 9.9 (8.4-10.2) mg/dL Albumin 4.3 (3.5-5.0) g/dL Pituitary panel 05/09/19 Range/Units 11:20 Sodium 135 L (137-145) mmol/L Potassium 4.8 (3.5-5.1) mmol/L Chloride 103 (98-107) mmol/L Carbon Dioxide 22 (22-30) mmol/L BUN 6 L (7-17) mg/dL Creatinine 0.58 (0.52-1.04) mg/dL Glucose 129 H (74-99) mg/dL Calcium 9.9 (8.4-10.2) mg/dL Adrenal panel 05/09/19 Range/Units 11:20 Sodium 135 L (137-145) mmol/L Potassium 4.8 (3.5-5.1) mmol/L Chloride 103 (98-107) mmol/L Carbon Dioxide 22 (22-30) mmol/L BUN 6 L (7-17) mg/dL Creatinine 0.58 (0.52-1.04) mg/dL Glucose 129 H (74-99) mg/dL Calcium 9.9 (8.4-10.2) mg/dL Total Bilirubin 1.3 (0.2-1.3) mg/dL AST 66 H (14-36) U/L ALT 47 (9-52) U/L Alkaline Phosphatase 47 (38-126) U/L Total Protein 7.3 (6.3-8.2) g/dL Albumin 4.3 (3.5-5.0) g/dL Assessment and Plan (1) Skin lesion Narrative/Plan: 58-year-old female with atypical left forearm skin lesion. Certainly concerning grossly for neoplasm. We'll proceed with punch biopsy at bedside tomorrow. Risks of bleeding, infection, need for additional surgery reviewed. She understands and wishes to proceed. Current Visit: Yes Status: Acute Code(s): L98.9 - DISORDER OF THE SKIN AND SUBCUTANEOUS TISSUE, UNSPECIFIED SNOMED Code(s): 68769530
[2019-05-09] MEDS: FAMOTIDINE 20 MG TAB PO SCH (20:22)
[2019-05-09] MEDS: METOPROLOL TARTRATE 25 MG TAB PO SCH (20:22)
[2019-05-09] MEDS ORDERED: SERTRALINE 100 MG TAB PO SCH (21:00)
[2019-05-09] MEDS ORDERED: traZODone HCL 50 MG TAB PO SCH (21:00)
[2019-05-10] MEDS: SODIUM CHLORIDE 0.9% 1,000 ML IV SCH ×2 (00:54→14:40)
[2019-05-10] MEDS: FAMOTIDINE 20 MG TAB PO SCH (07:37)
[2019-05-10] MEDS: METOPROLOL TARTRATE 25 MG TAB PO SCH (08:35)
[2019-05-10 08:47] LABS: Basophils % (A) 1 %; Eosinophils # (A) 0.1 k/uL (0-0.7); Eosinophils % (A) 2 %; HCT 38.3 % (34.0-46.0); HGB 13.4 gm/dL (11.4-16.0); Lymphocytes % (A) 30 %; MCH 34.1 pg (25.0-35.0); MCHC 34.9 g/dL (31.0-37.0); MCV 97.8 fL (80.0-100.0); Mean Platelet Volume 6.3; Monocytes # (A) 0.2 k/uL (0-1.0); Monocytes % (A) 5 %; Neutrophils # (A) 2.1 k/uL (1.3-7.7); Neutrophils % (A) 61 %; Platelet Count 135 k/uL (150-450); RBC 3.91 m/uL (3.80-5.40); RDW 14.4 % (11.5-15.5); WBC 3.5 k/uL (3.8-10.6)
[2019-05-10] MEDS ORDERED: MULTIVITAMINS, THERA 1 EACH TAB PO SCH (09:00)
[2019-05-10] MEDS ORDERED: HYDROCHLOROTHIAZIDE 25 MG TAB PO SCH (09:00)
[2019-05-10 09:01] LABS: African American GFR (CKD) >90 (>60 ml/min/1.73 sqM); Anion Gap 8 mmol/L; Blood Urea Nitrogen 5 mg/dL (7-17); Calcium 8.7 mg/dL (8.4-10.2); Carbon Dioxide 23 mmol/L (22-30); Chloride 106 mmol/L (98-107); Glucose 142 mg/dL (74-99); Non-African American GFR(CKD) >90 (>60 ml/min/1.73 sqM); Potassium 4.3 mmol/L (3.5-5.1); Sodium 137 mmol/L (137-145)
[2019-05-10] MEDS: traMADol 50 MG TAB PO PRN ×2 (09:01→14:18)
--- NOTE | 2019-05-10 12:07 | P.HPIM ---
History of Present Illness 58-year-old female noncompliant patient presented to family physician with wound to left forearm of patient has been on antibiotics failed outpatient therapy. Scheduled to see surgeon unable to see for 1 week. Sent to the emergency room for evaluation Review of Systems Integumentary: Reports wounds Past Medical History Past Medical History: Heart Failure, COPD, CVA/TIA, Diabetes Mellitus, Hypertension, Liver Disease, Myocardial Infarction ([place]), Osteoarthritis ([place]), Pneumonia, Seizure Disorder Additional Past Medical History / Comment(s): ETOH abuse, past alcohol withdrawal, chronic back pain, neuropathy bilateral lower extremities, hx R foot ulcer 2015, hx abdominal wound 2011, CVA 2002 affected rt eye vision but re solved in 6 months, continued numbness rt hand 4-5th fingers, CVA 2010 with numbness/tingling fingers and R leg weakness, hx TIA's, concussion from fall 2010, balance issues, NIDDM-pt states diet controlled, [place] per EKG, UTIs, seizure history from etoh-yrs ago, spot on liver, rib fractures, past L ankle fracture, Last Myocardial Infarction Date:: 2014 per EKG History of Any Multi-Drug Resistant Organisms: None Reported Date of last positivie culture/infection: None MDRO Source:: None Past Surgical History: Section, Hernia Repair, Orthopedic Surgery, Tonsillectomy Additional Past Surgical History / Comment(s): Ventral hernia repair x 4, Section X2, debridements of R foot and abdomin, colonoscopy, laparoscopy, seromas x 2 drained, bilateral ganglion cystectomy. Past Anesthesia/Blood Transfusion Reactions: No Reported Reaction Smoking Status: Current every day smoker - Past Family History Father Additional Family Medical History / Comment(s): Father is alive at age 78 with no major medical problems. Mother Family Medical History: Cancer Additional Family Medical History / Comment(s): Mother at age 65 from breast cancer/bone. Brother(s) Additional Family Medical History / Comment(s): Patient has 1 brother that from a motor vehicle accident involving alcohol. Patient has no sisters. Patient has 1 son 21 years old and one daughter 23 years old and she has no contact with her children. Medications and Allergies Home Medications Medication Instructions Recorded Confirmed Type Hydrochlorothiazide [Hydrodiuril] 25 mg PO DAILY 04/15/18 05/09/19 History Metoprolol Tartrate [Lopressor] 25 mg PO BID 03/17/19 05/09/19 History Multivitamins, Thera [Multivitamin 1 tab PO DAILY #30 tablet 03/20/19 05/09/19 Rx (formulary)] Sertraline [Zoloft] 100 mg PO HS #30 tab 03/28/19 05/09/19 Rx Ranitidine HCl [Zantac] 75 mg PO BID 05/09/19 05/09/19 History traZODone HCL [Desyrel] 150 mg PO HS 05/09/19 05/09/19 History Allergies Allergy/AdvReac Type Severity Reaction Status Date / Time Iodinated Contrast Media Allergy Unknown Verified 05/09/19 10:20 [Iodinated Contrast Media - IV Dye] pregabalin [From Lyrica] AdvReac Nausea & Verified 05/09/19 10:20 Vomiting Physical Exam Vitals: Vital Signs Temp Pulse Pulse Resp BP BP Pulse Ox 05/10/19 08:34 66 166/86 05/10/19 05:00 98 F 63 20 128/83 96 05/09/19 22:00 97.6 F 61 20 143/81 95 05/09/19 15:00 98.1 F 67 16 158/85 97 05/09/19 12:48 66 20 136/67 97 Intake and Output 05/09/19 05/10/19 05/10/19 22:59 06:59 14:59 Intake Total 200 0 Balance 200 0 Intake: Oral 200 0 Other: Voiding Method Toilet # Voids 1 3 - Constitutional General appearance: mild distress - EENT Eyes: PERRLA Ears: bilateral: normal - Neck Neck: normal ROM - Respiratory Respiratory: bilateral: CTA - Cardiovascular Rhythm: regular - Gastrointestinal General gastrointestinal: soft - Integumentary Wound to left forearm - Neurologic Neurologic: CNII-XII intact - Musculoskeletal Musculoskeletal: gait normal - Psychiatric Psychiatric: A&O x's 3, appropriate affect, intact judgment & insight Results CBC & Chem 7: 05/10/19 08:25 05/10/19 08:25 Labs: Abnormal Lab Results - Last 24 Hours (Table) 05/09/19 05/10/19 05/10/19 Range/Units 11:20 08:25 08:25 WBC 3.5 L (3.8-10.6) k/uL Plt Count 135 L (150-450) k/uL Sodium 135 L (137-145) mmol/L BUN 6 L 5 L (7-17) mg/dL Glucose 129 H 142 H (74-99) mg/dL AST 66 H (14-36) U/L Microbiology - Last 24 Hours (Table) 05/09/19 12:30 Gram Stain - Preliminary Arm - Left Wound Culture - Preliminary Thrombosis Risk Factor Assmnt - Choose All That Apply Any of the Below Risk Factors Present?: Yes Each Factor Represents 1 point: Abnormal pulmonary function (COPD), Age 41-60 years, Obesity (BMI >25) Other Risk Factors: No Other congenital or acquired thrombophilia - If yes, enter type in comment: No Thrombosis Risk Factor Assessment Total Risk Factor Score: 3 Thrombosis Risk Factor Assessment Level: Moderate Risk Assessment and Plan Plan: Assessment left forearm lesion COPD stable History of CVA/TIA with visual disturbance right hand tingling Hypertension History of nicotine abuse EtOH abuse Anxiety disorder Plan Biopsy with surgical consultation
[2019-05-10 14:17] VITALS: BP 133/75; PULSE 56; RESP 18; TEMP 98.7
[2019-05-10] MEDS ORDERED: LIDOCAINE 1% INJ 10MG/ML (20 ML MDV) SQ ONE (14:21)
--- NOTE | 2019-05-10 15:41 | P.PCN ---
Date of Procedure: 05/10/19 Procedure(s) Performed: PREOPERATIVE DIAGNOSIS: Ulcerated left arm lesion POSTOPERATIVE DIAGNOSIS: Same PROCEDURE: Punch biopsy left arm skin lesion SURGEON: Srini EBL: 1 mL ANESTHESIA: Local COMPLICATIONS: None OPERATIVE PROCEDURE: Patient kept in the room for the procedure. The skin was localized with lidocaine after prepping sterilely. A [address] of the edge of the lesion. This was sent to pathology in formalin. The site of the punch biopsy was closed using 2 3-0 Vicryl sutures. Sterile dressings were applied. DISPOSITION: Stable
--- NOTE | 2019-05-10 16:19 | P.DS ---
Providers Date of admission: 05/09/19 13:59 Expected date of discharge: 05/10/19 Attending physician: Alfredo Thakkar Consults: 05/09/19 12:00 Consult Physician Routine Consulting Provider: Reagan Jaimes Consult Reason/Comments: skin lesion, poss biopsy/excision Do you want consulting provider notified?: Yes Primary care physician: Alfredo Thakkar Hospital Course: 58 year old female admitted for lesion to left arm. Patient is non compliant . Saw surgery for evaluation biopsy done . Surgery will follow up as scheduled for removal. assessment skin lesion to left forearm COPD stable cva/tia hx hypertension alcohol abuse nicotine use plan follow up with surgery for lesion excision Patient Condition at Discharge: Fair Plan - Discharge Summary Discharge Rx Participant: No New Discharge Prescriptions: Continue Hydrochlorothiazide [Hydrodiuril] 25 mg PO DAILY Metoprolol Tartrate [Lopressor] 25 mg PO BID Multivitamins, Thera [Multivitamin (formulary)] 1 tab PO DAILY #30 tablet Sertraline [Zoloft] 100 mg PO HS #30 tab traZODone HCL [Desyrel] 150 mg PO HS Ranitidine HCl [Zantac] 75 mg PO BID Discharge Medication List Hydrochlorothiazide [Hydrodiuril] 25 mg PO DAILY 04/15/18 [History] Metoprolol Tartrate [Lopressor] 25 mg PO BID 03/17/19 [History] Multivitamins, Thera [Multivitamin (formulary)] 1 tab PO DAILY #30 tablet 03/20/19 [Rx] Sertraline [Zoloft] 100 mg PO HS #30 tab 03/28/19 [Rx] Ranitidine HCl [Zantac] 75 mg PO BID 05/09/19 [History] traZODone HCL [Desyrel] 150 mg PO HS 05/09/19 [History] Follow up Appointment(s)/Referral(s): Alfredo hTakkar MD [Primary Care Provider] - 1-2 days Reagan Jaimes MD [STAFF PHYSICIAN] - 1 Week
== END 2019-05-10 17:01 | disposition home or self-care (01) ==
LOC: EC 09:49 → 4MS4W 13:59
PROVIDERS: ADMIT Family Medicine; ATTEND Family Medicine
DX: C44.629 Squamous cell carcinoma of skin of left upper limb, including shoulder (principal); I11.0 Hypertensive heart disease with heart failure; I50.9 Heart failure, unspecified; Z23 Encounter for immunization; E78.5 Hyperlipidemia, unspecified; I25.2 Old myocardial infarction; G40.909 Epilepsy, unspecified, not intractable, without status epilepticus; J44.9 Chronic obstructive pulmonary disease, unspecified; F31.9 Bipolar disorder, unspecified; E11.42 Type 2 diabetes mellitus with diabetic polyneuropathy; M19.90 Unspecified osteoarthritis, unspecified site; E66.9 Obesity, unspecified; Z68.35 Body mass index [BMI] 35.0-35.9, adult; F41.9 Anxiety disorder, unspecified; G47.30 Sleep apnea, unspecified; G89.29 Other chronic pain; M54.9 Dorsalgia, unspecified; I69.351 Hemiplegia and hemiparesis following cerebral infarction affecting right dominant side; I69.398 Other sequelae of cerebral infarction; F10.10 Alcohol abuse, uncomplicated; Z91.19 Patient's noncompliance with other medical treatment and regimen; F17.200 Nicotine dependence, unspecified, uncomplicated; Z87.2 Personal history of diseases of the skin and subcutaneous tissue; Z86.31 Personal history of diabetic foot ulcer; Z79.899 Other long term (current) drug therapy; Z88.8 Allergy status to other drugs, medicaments and biological substances; Z91.041 Radiographic dye allergy status; Z98.890 Other specified postprocedural states; Z87.01 Personal history of pneumonia (recurrent); Z87.820 Personal history of traumatic brain injury; Z87.440 Personal history of urinary (tract) infections; Z80.3 Family history of malignant neoplasm of breast; Z80.8 Family history of malignant neoplasm of other organs or systems
CPT/HCPCS: 11104; 96361 ×2; 96360; 99284; 36415; 88305; 80053; 80048; 83605; 85025 ×2; 87040; 87070; 87205; 73090; 90686; G0378 ×2; G0008; J2001

== ENCOUNTER 2019-05-19 06:31 | Day surgery (SDC) | payer MEDICARE ==
[2019-05-18 09:17] VITALS: BMI 34.4
[~2019-05-19 06:31] MED LIST changes: +HEPARIN SODIUM,PORCINE 5,000 UNIT/ML 1 ML VIAL SQ ONE; +HYDROmorphone 0.5 MG/0.5 ML SYRINGE IVP PRN; +LACTATED RINGERS 1,000 ML IV SCH; +ONDANSETRON 4 MG/2 ML VIAL IVP PRN; +Pre Op ABX Message 1 EACH MISC MISCELLANE ONE; -REGADENOSON 0.4 MG/5 ML SYRINGE IV ONE
[2019-05-19] MEDS ORDERED: LIDOCAINE 1% 20 ML VIAL (10MG/ML) FOR IV START INTRADERMA ONE (06:48)
[2019-05-19] MEDS ORDERED: LACTATED RINGERS 1,000 ML IV ONE (06:56)
[2019-05-19 06:57] LABS: Glucose,Whole Blood 170 mg/dL (75-99)
[2019-05-19] MEDS ORDERED: KETAMINE 10 MG/ML 20 ML VIAL ONE (07:55)
[2019-05-19] MEDS ORDERED: MIDAZOLAM 2 MG/2 ML VIAL ONE (07:55)
[2019-05-19] MEDS ORDERED: LIDOCAINE 1% INJ 10MG/ML (20 ML MDV) ONE (07:55)
[2019-05-19] MEDS ORDERED: PROPOFOL 10 MG/ML 20 ML VIAL IV ONE (07:55)
[2019-05-19] MEDS ORDERED: fentaNYL (PF) 50 MCG/ML 2 ML AMP ONE (07:55)
[2019-05-19] MEDS ORDERED: GLYCOPYRROLATE 0.2 MG/ML 2 ML VIAL ONE (07:55)
[2019-05-19] MEDS ORDERED: SODIUM CHLORIDE 0.9% 50 ML with ceFAZolin 2,000 MG IV ONE ×4 (08:24)
[2019-05-19] MEDS ORDERED: BUPIVACAINE (PF) 0.5% 30 ML VIAL SQ ONE (08:25)
[2019-05-19 08:49] VITALS: TEMP 97.6
[2019-05-19 09:23] VITALS: RESP 18
[2019-05-19 09:25] LABS: Glucose,Whole Blood 122 mg/dL (75-99)
--- NOTE | 2019-05-19 10:25 | P.GSHP ---
History of Present Illness H&P Date: 05/19/19 Chief Complaint: Left arm squamous cell carcinoma This a 50-year-old female with a previously biopsied left arm skin lesion. 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 The tumor measured prostate 5 cm in diameter. Patient rents today for excision. She is aware the risk of non-closure of her wound due to the size of these lesions. Past Medical History Past Medical History: Cancer, Heart Failure, CVA/TIA, Diabetes Mellitus, Hypertension, Liver Disease, Myocardial Infarction ([place]), Osteoarthritis (OA), Pneumonia, Seizure Disorder Additional Past Medical History / Comment(s): ETOH abuse, Hx- alcohol withdrawal, chronic back pain, neuropathy lower extremities, R foot ulcer 2015, abdominal wound 2011, CVA 2002 affected rt eye vision but resolved , numbness rt hand 4-5th fingers, hx TIA's, concussion from fall 2010, balance issues, Hx of tx for TB at 5 yrs old., NIDDM-pt states diet controlled, [place] per EKG, UTIs, seizure history from etoh-yrs ago, spot on liver, Hx rib fractures & L ankle fracture., states squamous cell cancer left forearm-painful & itching. Last Myocardial Infarction Date:: 2014 per EKG History of Any Multi-Drug Resistant Organisms: None Reported Date of last positivie culture/infection: None MDRO Source:: None Past Surgical History: Section, Hernia Repair, Orthopedic Surgery, Tonsillectomy Additional Past Surgical History / Comment(s): Ventral hernia repair x 4, Section X2, debridements of R foot and abdomin, colonoscopy, laparoscopy, seromas x 2 drained, ganglion cysts Past Anesthesia/Blood Transfusion Reactions: No Reported Reaction, Motion Sickne ss Past Psychological History: Anxiety, Bipolar, Depression Additional Psychological History / Comment(s): STATES SHE HAS 17 CATS. Smoking Status: Current every day smoker Past Alcohol Use History: Abuse, Daily, Heavy Additional Past Alcohol Use History / Comment(s): Drinks 6 pack per day . Pt smokes7 cigarettes a day. She started smoking in 2003 . Past Drug Use History: None Reported - Past Family History Father Family Medical History: No Reported History Additional Family Medical History / Comment(s): . Mother Family Medical History: Cancer Additional Family Medical History / Comment(s): Mother at age 65 from breast cancer/bone. Brother(s) Additional Family Medical History / Comment(s): Patient has 1 brother that from a motor vehicle accident involving alcohol. Patient has no sisters. Patient has 1 son 21 years old and one daughter 23 years old and she has no contact with her children. Medications and Allergies Home Medications Medication Instructions Recorded Confirmed Type Hydrochlorothiazide [Hydrodiuril] 25 mg PO DAILY 04/15/18 05/18/19 History Metoprolol Tartrate [Lopressor] 25 mg PO BID 03/17/19 05/18/19 History Sertraline [Zoloft] 100 mg PO HS #30 tab 03/28/19 05/18/19 Rx traZODone HCL [Desyrel] 150 mg PO HS 05/09/19 05/18/19 History Cetirizine HCl [Zyrtec] 10 mg PO DAILY PRN 05/18/19 05/18/19 History Ibuprofen [Motrin Ib] 800 mg PO HS PRN 05/18/19 05/18/19 History Multivit with Calcium,Iron,Min 1 each PO DAILY 05/18/19 05/18/19 History [Women's Multivitamin] Allergies Allergy/AdvReac Type Severity Reaction Status Date / Time Iodinated Contrast Media Allergy Anaphylaxis- Verified 05/18/19 08:34 [Iodinated Contrast Media - Lungs IV Dye] filled up with fluid pregabalin [From Lyrica] AdvReac Nausea & Verified 05/18/19 08:35 Vomiting, dizziness Surgical - Exam Vital Signs Temp Pulse Resp BP Pulse Ox 98.6 F 76 18 166/79 95 05/19/19 06:43 05/19/19 06:43 05/19/19 06:43 05/19/19 06:43 05/19/19 06:43 - General well developed, well nourished, no distress - Eyes PERRL - ENT normal pinna - Neck no masses - Respiratory normal expansion - Cardiovascular Rhythm: regular - Abdomen Abdomen: soft, non tender - Integumentary 5 cm squamous cell carcinoma left forearm Results - Labs Abnormal Lab Results - Last 24 Hours (Table) 05/19/19 05/19/19 Range/Units 06:55 09:21 POC Glucose (mg/dL) 170 H 122 H (75-99) mg/dL Assessment and Plan Assessment: Left forearm squamous cell carcinoma. We'll perform wide local excision.
--- NOTE | 2019-05-19 10:29 | P.OP ---
Date of Procedure: 05/19/19 Preoperative Diagnosis: Left forearm squamous cell carcinoma Postoperative Diagnosis: Left forearm squamous cell carcinoma Procedure(s) Performed: Wide local excision of left forearm squamous cell carcinoma Anesthesia: MAC Surgeon: Reagan Jaimes Estimated Blood Loss (ml): 5 Pathology: other (Squamous cell carcinoma left forearm) Condition: stable Disposition: PACU Description of Procedure: The patient's placed on the operative table in supine position. She received IV sedation. Her left forearm was prepped and draped in usual sterile fashion. The patient had a large squamous cell carcinoma left forearm. The skin was measured prostate 5 cm in diameter and was located in the mid aspect of her forearm. An elliptical skin incision was made around the tumor. And then using left cautery the subcutaneous tissue divided and the specimen sent to pathology. The proximal portion of the specimen was tagged with a suture. At this point the subcutaneous tissues were undermined using blunt and sharp dissection with cautery. And then the skin was closed using 2-0 nylon suture. Sterile dressings applied. Patient top she will was sent to recovery room stable condition.
[2019-05-19 11:11] VITALS: BP 136/84; PULSE 64
== END 2019-05-19 11:08 | disposition home or self-care (01) ==
LOC: OR 06:31
PROVIDERS: ATTEND Surgery
DX: C44.629 Squamous cell carcinoma of skin of left upper limb, including shoulder (principal); I11.0 Hypertensive heart disease with heart failure; I50.9 Heart failure, unspecified; I25.2 Old myocardial infarction; M19.90 Unspecified osteoarthritis, unspecified site; E11.42 Type 2 diabetes mellitus with diabetic polyneuropathy; G40.909 Epilepsy, unspecified, not intractable, without status epilepticus; G89.29 Other chronic pain; M54.5 Low back pain; F41.9 Anxiety disorder, unspecified; F31.9 Bipolar disorder, unspecified; K76.9 Liver disease, unspecified; F17.210 Nicotine dependence, cigarettes, uncomplicated; Z87.01 Personal history of pneumonia (recurrent); Z87.440 Personal history of urinary (tract) infections; Z86.73 Personal history of transient ischemic attack (TIA), and cerebral infarction without residual deficits; Z90.89 Acquired absence of other organs; Z98.890 Other specified postprocedural states; Z79.899 Other long term (current) drug therapy; Z91.041 Radiographic dye allergy status; Z88.8 Allergy status to other drugs, medicaments and biological substances; Z87.81 Personal history of (healed) traumatic fracture; Z80.3 Family history of malignant neoplasm of breast; Z80.8 Family history of malignant neoplasm of other organs or systems
CPT/HCPCS: 88305; 11606; J2250; J1644; J2405; J0690; J2001; J3010; J2704

== ENCOUNTER 2019-06-03 10:16 | Emergency (ER) | payer MEDICARE ==
[2019-06-03 10:29] VITALS: BP 144/77; PULSE 67; RESP 20; TEMP 98
--- NOTE | 2019-06-03 11:25 | ED ---
Recheck HPI - General Chief Complaint: Recheck/Abnormal Lab/Rx Stated Complaint: Post Op Bleeding Time Seen by Provider: 06/03/19 10:30 Source: patient, RN notes reviewed, old records reviewed Mode of arrival: ambulatory Limitations: no limitations - History of Present Illness Initial Comments: Anupama is a 50-year-old female with a history of squamous cell carcinoma on her left forearm. She had this removed on May [address] West. She reports that it was a wide excision, and she went to Dr. Castro's office to get the sutures removed yesterday. She reports that the sutures were removed and she had a small amount dehiscence over the distal portion of the wound. She reports that this morning when she woke up from bed she complained of no pain but when she took her nightgown off she noted that the wound had dehisced more and is now open and bleeding. Patient reports that she's had a history of poor wound healing with abdominal incisions and has had have wounds healed by secondary intention. - Related Data Home Medications Medication Instructions Recorded Confirmed Hydrochlorothiazide [Hydrodiuril] 25 mg PO DAILY 04/15/18 05/18/19 Metoprolol Tartrate [Lopressor] 25 mg PO BID 03/17/19 05/18/19 traZODone HCL [Desyrel] 150 mg PO HS 05/09/19 05/18/19 Cetirizine HCl [Zyrtec] 10 mg PO DAILY PRN 05/18/19 05/18/19 Ibuprofen [Motrin Ib] 800 mg PO HS PRN 05/18/19 05/18/19 Multivit with Calcium,Iron,Min 1 each PO DAILY 05/18/19 05/18/19 [Women's Multivitamin] Previous Rx's Medication Instructions Recorded Sertraline [Zoloft] 100 mg PO HS #30 tab 03/28/19 HYDROcodone/APAP 5-325MG [[place] 1 tab PO Q6HR PRN #10 tab 05/19/19 5-325] Allergies Allergy/AdvReac Type Severity Reaction Status Date / Time Iodinated Contrast Media Allergy Anaphylaxis- Verified 06/03/19 10:29 [Iodinated Contrast Media - Lungs IV Dye] filled up with fluid pregabalin [From Lyrica] AdvReac Nausea & Verified 06/03/19 10:29 Vomiting, dizziness Review of Systems ROS Statement: Those systems with pertinent positive or pertinent negative responses have been documented in the HPI. ROS Other: All systems not noted in ROS Statement are negative. Past Medical History Past Medical History: Cancer, Heart Failure, CVA/TIA, Diabetes Mellitus, Hypertension, Liver Disease, Myocardial Infarction ([place]), Osteoarthritis ([place]), Pneumonia, Seizure Disorder Additional Past Medical History / Comment(s): ETOH abuse, Hx- alcohol withdrawal, chronic back pain, neuropathy lower extremities, R foot ulcer 2015, abdominal wound 2011, CVA 2002 affected rt eye vision but resolved , numbness rt hand 4-5th fingers, hx TIA's, concussion from fall 2010, balance issues, Hx of tx for TB at 5 yrs old., NIDDM-pt states diet controlled, [place] per EKG, UTIs, seizure history from etoh-yrs ago, spot on liver, Hx rib fractures & L ankle fracture., states squamous cell cancer left forearm-painful & itching. Last Myocardial Infarction Date:: 2014 per EKG History of Any Multi-Drug Resistant Organisms: None Reported Date of last positivie culture/infection: None MDRO Source:: None Past Surgical History: Section, Hernia Repair, Orthopedic Surgery, Tonsillectomy Additional Past Surgical History / Comment(s): Ventral hernia repair x 4, Section X2, debridements of R foot and abdomin, colonoscopy, laparoscopy, seromas x 2 drained, ganglion cysts Past Anesthesia/Blood Transfusion Reactions: No Reported Reaction, Motion Sickness Past Psychological History: Anxiety, Bipolar, Depression Smoking Status: Current every day smoker Past Alcohol Use History: Abuse, Daily, Heavy Past Drug Use History: None Reported - Past Family History Father Family Medical History: No Reported History Additional Family Medical History / Comment(s): . Mother Family Medical History: Cancer Additional Family Medical History / Comment(s): Mother at age 65 from breast cancer/bone. Brother(s) Additional Family Medical History / Comment(s): Patient has 1 brother that from a motor vehicle accident involving alcohol. Patient has no sisters. Elsa waite has 1 son 21 years old and one daughter 23 years old and she has no contact with her children. General Exam - General Exam Comments Initial Comments: 58-year-old female. No distress. Limitations: no limitations General appearance: alert, in no apparent distress Head exam: Present: atraumatic, normocephalic, normal inspection Eye exam: Present: normal appearance, PERRL, EOMI. Absent: scleral icterus, conjunctival injection, periorbital swelling ENT exam: Present: normal exam, mucous membranes moist Neck exam: Present: normal inspection. Absent: tenderness, meningismus, lymphadenopathy Respiratory exam: Present: normal lung sounds bilaterally. Absent: respiratory distress, wheezes, rales, rhonchi, stridor Cardiovascular Exam: Present: regular rate, normal rhythm, normal heart sounds. Absent: systolic murmur, diastolic murmur, rubs, gallop, clicks GI/Abdominal exam: Present: soft, normal bowel sounds. Absent: distended, tenderness, guarding, rebound, rigid Extremities exam: Present: normal inspection, full ROM, normal capillary refill. Absent: tenderness, pedal edema, joint swelling, calf tenderness Left Elbow exam: Present: normal inspection, full ROM Forearm Wrist exam: Present: full ROM, tenderness, other ( has a 2 cm x 5 cm wound dehiscence over the incision site over the dorsal left forearm. There is raised erythematous skin around this, scabbing.). Absent: normal inspection Hand Wrist exam: Present: normal inspection, full ROM Back exam: Present: normal inspection Neurological exam: Present: alert, oriented X3, CN II-XII intact Psychiatric exam: Present: normal affect, normal mood Skin exam: Present: warm, dry, intact, normal color. Absent: rash Course Vital Signs 06/03/19 10:26 Temperature 98 F Pulse Rate 67 Respiratory 20 Rate Blood Pressure 144/77 O2 Sat by Pulse 99 Oximetry Medical Decision Making - Medical Decision Making Is a 38-year-old female presents emergency Department today for wound dehiscence of her left forearm. She had a history of squamous cell carcinoma that was removed by Dr. Dumont. She had the sutures removed yesterday and the wound dehisced this morning. It is approximately 2 severe when dehiscence with some minor bleeding noted. Discussed the case with Dr. Dumont recommended closing it with secondary intention with Steri-Strips and Patient can follow-up with the wound care clinic. I cleansed the wound, and closed with approximately 6 Steri- Strips. There is still some area of dehiscence with the Steri-Strips applied. A set of the Patient to have a wound care appointment on 06/08 2:45 PM. Patient follow up with Dr. Salas prior to this early next week. Discussed keeping the area clean and dry. - Radiology Data Radiology results: report reviewed Disposition Clinical Impression: Wound dehiscence Disposition: HOME SELF-CARE Condition: Good Instructions (If sedation given, give patient instructions): Wound Dehiscence (ED) Additional Instructions: Keep the area clean and dry. Do not remove the Steri-Strips. Follow-up with Dr. Jaimes early next week and follow-up with wound care clinic at the appointment as we have scheduled this on 06/08 at 2:45 PM. Return to the emergency department if any alarming signs or symptoms occur. Is patient prescribed a controlled substance at d/c from ED?: No Referrals: Alfredo Thakkar MD [Primary Care Provider] - 1-2 days
== END 2019-06-03 12:35 | disposition home or self-care (01) ==
LOC: EC 10:16
DX: T81.31XA Disruption of external operation (surgical) wound, not elsewhere classified, initial encounter (principal); I11.0 Hypertensive heart disease with heart failure; I50.9 Heart failure, unspecified; I25.2 Old myocardial infarction; M19.90 Unspecified osteoarthritis, unspecified site; E11.42 Type 2 diabetes mellitus with diabetic polyneuropathy; F31.9 Bipolar disorder, unspecified; F41.9 Anxiety disorder, unspecified; F17.200 Nicotine dependence, unspecified, uncomplicated; Z88.8 Allergy status to other drugs, medicaments and biological substances; Z91.041 Radiographic dye allergy status; Z79.1 Long term (current) use of non-steroidal anti-inflammatories (NSAID); Z79.899 Other long term (current) drug therapy; Z85.828 Personal history of other malignant neoplasm of skin
CPT/HCPCS: 99283

== ENCOUNTER → 2019-08-03 | Outpatient (CLI) | payer MEDICARE ==
--- NOTE | 2019-08-03 13:56 | BD ---
EXAMINATION TYPE: Axial Bone Density DATE OF EXAM: 08/03/2019 COMPARISON: NONE CLINICAL HISTORY: Height: 5 FT 6 IN Weight: 225 FRAX RISK QUESTIONS: Alcohol (3 or more units per day): YES Family History (Parent hip fracture): NO Glucocorticoids (More than 3mos): NO (Ex: prednisone, prednisolone, methylprednisolone, dexamethasone, and hydrocortisone). History of Fracture in Adulthood: YES Secondary Osteoporosis: 1. Type 1 Diabetes: NO 2. Hyperthyroidism: NO 3. Menopause before 45: NO 4. Malnutrition: NO 5. Chronic liver disease: NO Rheumatoid Arthritis: NO Current Tobacco Use: YES RISK FACTORS HISTORY OF: Postmenopausal woman: AROUND 45 MEDICATIONS: Additional Medications: METOPROLOL, HYDROCHLORTHIAZIDE, TRAZADONE, Additional History: EXAM MEASUREMENTS: Bone mineral densitometry was performed using the Viewpoint Digital System. Bone mineral density as measured about the Lumbar spine is: ----- L1-L4(G/cm2): 1.005 T Score Values are as follows: ----- L2: -1.6 ----- L3: -1.2 ----- L4: -2.0 ----- L1-L4: -1.5 BASELINE Bone mineral density about the R hip (g/cm2): 0.887 Bone mineral density about the L hip (g/cm2): 0.899 T Score values are as follows: -----R Neck: -1.1 -----L Neck: -1.0 -----R Total: -0.4 -----L Total: -0.7 BASELINE IMPRESSION: Osteopenia (T Score between -2.5 and -1). There is slightly increased risk of fracture and the patient may be considered for treatment. Re-Screen 2-5 years. NOTE: T-SCORE=SD OF THE YOUNG ADULT MEAN.
--- NOTE | 2019-08-04 13:22 | MM ---
Reason for exam: screening (asymptomatic). Last mammogram was performed 1 year and 11 months ago. History: Patient is postmenopausal, has history of other cancer at age 58, and had first child at age 33. Family history of breast cancer in mother at age 55. Cyst aspiration of the left breast, 2011. Took hormonal contraceptives for 1 year. Physical Findings: A clinical breast exam by your physician is recommended on an annual basis and results should be correlated with mammographic findings. MG 3D Screening Mammo W/Cad Bilateral CC and MLO view(s) were taken. Prior study comparison: September 07, 2017, bilateral MG 3d screening mammo w/cad. January 25, 2014, bilateral MG screening mammo w CAD. There are scattered fibroglandular densities. No significant changes when compared with prior studies. ASSESSMENT: Benign, BI-RAD 2 RECOMMENDATION: Routine screening mammogram of both breasts in 1 year.
== END | disposition home or self-care (01) ==
LOC: RADMAMWWP 09:42
PROVIDERS: ATTEND Family Medicine
DX: Z12.31 Encounter for screening mammogram for malignant neoplasm of breast (principal); M85.80 Other specified disorders of bone density and structure, unspecified site; Z78.0 Asymptomatic menopausal state
CPT/HCPCS: 77063; 77067; 77080

== ENCOUNTER → 2019-09-06 | Outpatient (CLI) | payer MEDICARE ==
--- NOTE | 2019-09-06 13:35 | XR ---
Lumbosacral spine HISTORY: Low back pain 5 views of lumbosacral spine Correlation prior exam 01/30/2014 There is a mild thoracic scoliosis centered at L2. Overlying metallic coils are likely postoperative within the abdominal wall. There is no evident spondylolysis or spondylolisthesis. Lumbar vertebral b odies show preserved height. Bone mineralization is reduced. Loss of disc height present L4-5, L5-S1. Sclerosis present in the posterior elements. Suspect vascular calcifications present within the aort a. Mild multilevel spondylosis. IMPRESSION: Degenerative disc disease, facet arthropathy. Osteopenia.
== END | disposition home or self-care (01) ==
LOC: RADXRMAIN 10:05
PROVIDERS: ATTEND Family Medicine
DX: M51.37 Other intervertebral disc degeneration, lumbosacral region (principal); M46.97 Unspecified inflammatory spondylopathy, lumbosacral region; M85.88 Other specified disorders of bone density and structure, other site
CPT/HCPCS: 72110

== ENCOUNTER → 2019-09-15 | Outpatient (CLI) | payer MEDICARE ==
--- NOTE | 2019-09-15 10:21 | US ---
EXAMINATION TYPE: US duplex aorta DATE OF EXAM: 09/15/2019 COMPARISON: NONE CLINICAL HISTORY: I70.0 Atherosclerosis of aorta. EXAM MEASUREMENTS: Abdominal Aorta: Proximal: 2.4 cm Mid: 2.5 Distal: obscured Bifurcation: obscured Patient of large body habitus has long, wide scarring in her midline abdominal area from 3 hernia amanda geries . Technically difficult study. IMPRESSION: Distal abdominal aorta and bifurcation are obscured secondary to scarring from 3 hernia r epairs. Proximal and mid abdominal aorta demonstrate no evidence of abdominal aortic aneurysm.
== END | disposition home or self-care (01) ==
LOC: RADUSWWP 09:22
PROVIDERS: ATTEND Family Medicine
DX: I70.0 Atherosclerosis of aorta (principal)
CPT/HCPCS: 93979

== ENCOUNTER 2020-09-05 07:34 | Day surgery (SDC) | payer MEDICARE ==
[2020-08-31 13:54] VITALS: BMI 34.7
[~2020-09-05 07:34] MED LIST changes: -HEPARIN SODIUM,PORCINE 5,000 UNIT/ML 1 ML VIAL SQ ONE; -HYDROmorphone 0.5 MG/0.5 ML SYRINGE IVP PRN; +LIDOCAINE 1% (10MG/ML) FOR IV START INTRADERMA PRN; -ONDANSETRON 4 MG/2 ML VIAL IVP PRN; -Pre Op ABX Message 1 EACH MISC MISCELLANE ONE
[2020-09-05 08:04] VITALS: TEMP 97.6
[2020-09-05 08:34] LABS: Glucose,Whole Blood 149 mg/dL (75-99)
[2020-09-05] MEDS ORDERED: LIDOCAINE 1% INJ 10MG/ML (20 ML MDV) ONE (08:49)
[2020-09-05] MEDS ORDERED: PROPOFOL 10 MG/ML 20 ML VIAL IV ONE (08:49)
--- NOTE | 2020-09-05 09:00 | P.PCN ---
Date of Procedure: 09/05/20 Procedure(s) Performed: BRIEF HISTORY: Patient is a 59-year-old, pleasant, female scheduled for an upper endoscopy as a part of evaluation of dysphagia to solids for the last 2 months duration.. PROCEDURE PERFORMED: Esophagogastroduodenoscopy with biopsy PREOPERATIVE DIAGNOSIS: Intermittent dysphagia to solids of 2 months duration. IV sedation per anesthesia. PROCEDURE: After informed consent was obtained, the patient was brought into the endoscopy unit. IV sedation was administered by Anesthesia under continuous monitoring. Initially the Olympus GIF-140 video endoscope was inserted into the mouth. Esophagus intubated without any difficulty. It was gradually advanced into the stomach and duodenum and carefully examined. The bulb and the second part of the duodenum appeared normal. The scope at this time was withdrawn to the stomach, adequately insufflated with air, and upon careful examination, mucosa of the antrum, had scattered erosions and biopsies were done from this area. The body, cardia and the fundus appeared normal. The scope was then withdrawn into the esophagus. The GE junction was located at 39 cm from the incisors. The esophagus appeared normal. There were no erosions or ulcerations seen , no evidence of esophageal stricture. Biopsies were done from the distal esophagus and the patient tolerated the procedure well. IMPRESSION: 1. Normal-appearing esophagus with no evidence of esophageal stricture.. 2. LA grade a reflux esophagitis. 2. Antral erosive gastritis RECOMMENDATIONS: The findings of this examination were discussed with the patient as well as a family.. She was advised to follow with the biopsy results. She will benefit from a trial of Prilosec 20 mg daily for 6 weeks.
[2020-09-05 09:24] VITALS: RESP 16
[2020-09-05 09:25] VITALS: BP 124/78; PULSE 75
== END 2020-09-05 09:40 | disposition home or self-care (01) ==
LOC: ORWHC2ENDO 07:34
PROVIDERS: ATTEND Internal Medicine Gastroenterology
DX: K29.50 Unspecified chronic gastritis without bleeding (principal); K21.00 Gastro-esophageal reflux disease with esophagitis, without bleeding; I25.2 Old myocardial infarction; Z88.1 Allergy status to other antibiotic agents; Z79.899 Other long term (current) drug therapy
CPT/HCPCS: 88305; 43239; J2001; J2704

== ENCOUNTER 2020-10-11 06:37 | Day surgery (SDC) | payer MEDICARE ==
[2020-10-08 13:55] VITALS: BMI 33.0
[~2020-10-11 06:37] MED LIST changes: +ACETAMINOPHEN TAB 500 MG TAB PO PRN; +DEXAMETHASONE SOD PHOSPHATE 4 MG/ML 1 ML VIAL IV ONE; +HEPARIN SODIUM,PORCINE 5,000 UNIT/ML 1 ML VIAL SQ PRN; +HYDROmorphone 0.5 MG/0.5 ML SYRINGE IVP PRN; -LIDOCAINE 1% (10MG/ML) FOR IV START INTRADERMA PRN; +ONDANSETRON 4 MG/2 ML VIAL IVP ONE; +Pre Op ABX Message 1 EACH MISC MISCELLANE ONE
[2020-10-11 06:53] VITALS: RESP 16
[2020-10-11] MEDS ORDERED: LIDOCAINE 1% (10MG/ML) FOR IV START INTRADERMA ONE (07:17)
[2020-10-11 07:18] LABS: Glucose,Whole Blood 160 mg/dL (75-99)
[2020-10-11] MEDS ORDERED: BUPIVACAINE (PF) 0.25% 30 ML VIAL SQ ONE ×3 (07:21→08:04)
[2020-10-11] MEDS ORDERED: MIDAZOLAM 2 MG/2 ML VIAL IV ONE (07:38)
[2020-10-11] MEDS ORDERED: PROPOFOL 10 MG/ML 20 ML VIAL IV ONE (07:53)
[2020-10-11] MEDS ORDERED: fentaNYL (PF) 50 MCG/ML 2 ML AMP ONE (07:53)
[2020-10-11] MEDS ORDERED: MIDAZOLAM 2 MG/2 ML VIAL ONE (07:53)
[2020-10-11] MEDS ORDERED: SODIUM CHLORIDE 0.9% 100 ML with ceFAZolin 2,000 MG IV ONE ×2 (08:01)
--- NOTE | 2020-10-11 08:35 | P.GSHP ---
History of Present Illness H&P Date: 10/11/20 Chief Complaint: Right arm skin lesion This is a 60-year-old female has developed a nonhealing right arm skin lesion. Patient has a 1 cm scaly erythematous skin lesion which is bleeding. She'll stay for excision. Past Medical History Past Medical History: Cancer, CVA/TIA, Diabetes Mellitus, Hypertension, Myocardial Infarction ([place]), Osteoarthritis ([place]), Seizure Disorder Additional Past Medical History / Comment(s): difficulty swallowing, ETOH abuse Hx, chronic back pain, neuropathy lower extremities, R foot ulcer 2015, abdominal wound 2011 (states hernia surgery), CVA 2002 affected rt eye vision now resolved, still has numbness rt hand 4-5th fingers, hx TIA's, concussion from fall 2010, balance issues, Hx of tx for TB at 5 yrs old, [place] per EKG, seizure history from etoh-yrs ago, spot on liver, Hx rib fractures & L ankle fracture., hx squamous cell cancer left forearm, current skin ca rt arm, Last Myocardial Infarction Date:: 2014 per EKG History of Any Multi-Drug Resistant Organisms: None Reported Date of last positivie culture/infection: None MDRO Source:: None Past Surgical History: Section, Hernia Repair, Orthopedic Surgery, Tonsillectomy Additional Past Surgical History / Comment(s): Ventral hernia repair x 4, Section X2, debridements of R foot and abdomen, colonoscopy, laparoscopy, seromas x 2 drained, ganglion cysts, left squamous cell ca removed, cataracts, EGD Past Anesthesia/Blood Transfusion Reactions: No Reported Reaction, Motion Sickness Past Psychological History: Anxiety, Depression Additional Psychological History / Comment(s): . Smoking Status: Current every day smoker Past Alcohol Use History: Abuse, Daily, Heavy Additional Past Alcohol Use History / Comment(s): Drank 6 pack beer per day, then went to a fifth of rum a day. Now states hasnt had alcohol since 08/09/20. Pt smokes 10 cigarettes a day. She started smoking in 2003 . Past Drug Use History: Marijuana Additional Drug Use History / Comment(s): NO CURRENT marijuana - Past Family History Father Family Medical History: No Reported History Additional Family Medical History / Comment(s): . Mother Family Medical History: Cancer Additional Family Medical History / Comment(s): Mother at age 65 from breast cancer/bone. Brother(s) Additional Family Medical History / Comment(s): Patient has 1 brother that from a motor vehicle accident involving alcohol. Patient has no sisters. Patient has 1 son 21 years old and one daughter 23 years old and she has no contact with her children. Medications and Allergies Home Medications Medication Instructions Recorded Confirmed Type Metoprolol Tartrate [Lopressor] 25 mg PO BID 03/17/19 10/11/20 History traZODone HCL [Desyrel] 150 mg PO HS 05/09/19 10/11/20 History Multivit with Calcium,Iron,Min 1 each PO DAILY 05/18/19 10/11/20 History [Women's Multivitamin] Calcium Carbonate/Vitamin D3 1 each PO DAILY 08/31/20 10/11/20 History [Calcium 600-D3 20 mcg (800 Unit)] Glimepiride [Amaryl] 2 mg PO DAILY 08/31/20 10/11/20 History metFORMIN HCL [Glucophage] 500 mg PO BID 08/31/20 10/11/20 History Melatonin 5 mg PO HS 10/08/20 10/11/20 History diphenhydrAMINE [Benadryl] 25 mg PO HS PRN 10/08/20 10/11/20 History Allergies Allergy/AdvReac Type Severity Reaction Status Date / Time azithromycin [From Zithromax] Allergy "had very Verified 10/11/20 07:01 bad thrush" Iodinated Contrast Media Allergy Anaphylaxis- Verified 10/11/20 07:01 [Iodinated Contrast Media - Lungs IV Dye] filled up with fluid shellfish derived [Shellfish] Allergy Swelling, Verified 10/11/20 07:01 NAUSEA pregabalin [From Lyrica] AdvReac Nausea & Verified 10/11/20 07:01 Vomiting, dizziness Surgical - Exam Vital Signs Resp 16 10/11/20 06:52 - General well developed, well nourished, no distress - Eyes PERRL - ENT normal pinna - Neck no masses - Respiratory normal expansion - Cardiovascular Rhythm: regular - Abdomen Abdomen: soft, non tender - Integumentary 1 cm nonhealing scaly erythematous skin lesion right forearm Results - Labs Abnormal Lab Results - Last 24 Hours (Table) 10/11/20 Range/Units 07:13 POC Glucose (mg/dL) 160 H (75-99) mg/dL Assessment and Plan Assessment: We will perform wide local excision of right forearm skin lesion.
[2020-10-11 08:36] VITALS: BP 131/78
--- NOTE | 2020-10-11 08:40 | P.OP ---
Date of Procedure: 10/11/20 Preoperative Diagnosis: Right forearm skin lesion Postoperative Diagnosis: Right forearm skin lesion Procedure(s) Performed: Wide local excision of right forearm skin lesion Anesthesia: MAC Surgeon: Reagan Jaimes Pathology: other (Right forearm skin lesion) Condition: stable Disposition: PACU Description of Procedure: The patient's placed on the operative table in the supine position. She received IV sedation. Her right forearm was prepped and draped usual sterile fashion. Elliptical skin incision was made around the skin lesion. Cautery the subcutaneous tissue divided. The specimens of pathology. The suture tag was placed on the proximal portion of the specimen. The bones uses aspirin skin was closed interrupted 3-0 Monocryl suture. Dermabond was applied. Patient top she will was sent to recovery room in stable condition.
[2020-10-11 08:59] VITALS: PULSE 72
--- NOTE | 2020-10-15 08:08 | CDI ---
Date 10.15.20 CDS/Program Host Name: Zahra Mckeon Phone: If any questions, call Scarlet Appiah, [facility] at Patient Name: Anupama Howell Discharge Date: 10.11.2020 ATTENTION: The [facility] Coding Staff appreciate your assistance in clarifying documentation. Please respond to the clarification below the line at the bottom and electronically sign. The [facility] Coding staff will review the response and follow-up if needed. Please note: Queries are made part of the Legal Health Record. If you have any questions, please contact the [facility]. Dear Dr. Jaimes In order to code to the greatest specificity and for the greatest reimbursement I need the following information: 1. Please document the diatmeter of lesion excised including margins: __0.5 cm or less __0.6 to 1.0 cm __1.1 to 2.0 cm __2.1 to 3.0 cm __3.1 to 4.0 cm __over 4.0 cm 2. And in your procedure note you have documented the suture tag was place on the proximal portion of the specimen. The bones uses aspirin skin was closed.. Please clarify how excision was closed. Thank you for your kind consideration. The incision was closed with 3-0 Monocryl. The specimen was 4 cm in size [facility]
== END 2020-10-11 09:58 | disposition home or self-care (01) ==
LOC: OR 06:37
PROVIDERS: ATTEND Surgery
DX: C44.622 Squamous cell carcinoma of skin of right upper limb, including shoulder (principal); L57.8 Other skin changes due to chronic exposure to nonionizing radiation; E11.9 Type 2 diabetes mellitus without complications; I10 Essential (primary) hypertension; I25.2 Old myocardial infarction; M19.90 Unspecified osteoarthritis, unspecified site; G89.29 Other chronic pain; M54.9 Dorsalgia, unspecified; E11.42 Type 2 diabetes mellitus with diabetic polyneuropathy; I69.398 Other sequelae of cerebral infarction; R20.0 Anesthesia of skin; K76.89 Other specified diseases of liver; F41.9 Anxiety disorder, unspecified; F32.9 Major depressive disorder, single episode, unspecified; F17.210 Nicotine dependence, cigarettes, uncomplicated; K08.409 Partial loss of teeth, unspecified cause, unspecified class; K08.89 Other specified disorders of teeth and supporting structures; I25.10 Atherosclerotic heart disease of native coronary artery without angina pectoris; G47.33 Obstructive sleep apnea (adult) (pediatric); Z85.828 Personal history of other malignant neoplasm of skin; Z86.69 Personal history of other diseases of the nervous system and sense organs; Z86.31 Personal history of diabetic foot ulcer; Z87.820 Personal history of traumatic brain injury; Z86.11 Personal history of tuberculosis; Z87.81 Personal history of (healed) traumatic fracture; Z98.890 Other specified postprocedural states; Z90.89 Acquired absence of other organs; Z98.41 Cataract extraction status, right eye; Z98.42 Cataract extraction status, left eye; Z87.898 Personal history of other specified conditions; Z79.899 Other long term (current) drug therapy; Z79.84 Long term (current) use of oral hypoglycemic drugs; Z88.1 Allergy status to other antibiotic agents; Z91.041 Radiographic dye allergy status; Z91.013 Allergy to seafood; Z88.8 Allergy status to other drugs, medicaments and biological substances; Z80.3 Family history of malignant neoplasm of breast; Z80.8 Family history of malignant neoplasm of other organs or systems
CPT/HCPCS: 88305; 11604; J2250; J1644; J1100; J2405; J0690; J3010; J2704

== ENCOUNTER 2020-12-22 21:48 | Inpatient (IN) | payer MEDICARE ==
[2020-12-22] MEDS ORDERED: IPRATROPIUM-ALBUTEROL 3 ML NEB INHALATION STA (21:56)
[2020-12-22] MEDS ORDERED: SODIUM CHLORIDE 0.9% 500 ML 500 ML IV STA (21:56)
[2020-12-22 22:43] LABS: Basophils # (A) 0.1 k/uL (0-0.2); Basophils % (A) 2 %; Eosinophils # (A) 0.1 k/uL (0-0.7); Eosinophils % (A) 2 %; HGB 13.9 gm/dL (11.4-16.0); Lymphocytes # (A) 2.4 k/uL (1.0-4.8); Lymphocytes % (A) 50 %; MCH 33.8 pg (25.0-35.0); MCHC 35.6 g/dL (31.0-37.0); Mean Platelet Volume 7.2; Monocytes # (A) 0.3 k/uL (0-1.0); Monocytes % (A) 6 %; Neutrophils # (A) 1.9 k/uL (1.3-7.7); Neutrophils % (A) 38 %; Platelet Count 167 k/uL (150-450); RDW 12.8 % (11.5-15.5); WBC 4.9 k/uL (3.8-10.6)
[2020-12-22 23:07] LABS: INR 1.1 (<1.2); Partial Thromboplastin Time 24.1 sec (22.0-30.0); Prothrombin Time 11.2 sec (9.0-12.0)
[2020-12-22 23:12] LABS: ALT 41 U/L (4-34); AST 59 U/L (14-36); African American GFR (CKD) >90 (>60 ml/min/1.73 sqM); Albumin 4.2 g/dL (3.5-5.0); Alkaline Phosphatase 39 U/L (38-126); Anion Gap 14 mmol/L; Blood Urea Nitrogen 5 mg/dL (7-17); Calcium 10.1 mg/dL (8.4-10.2); Carbon Dioxide 27 mmol/L (22-30); Chloride 96 mmol/L (98-107); Glucose 113 mg/dL (74-99); Magnesium 1.4 mg/dL (1.6-2.3); Non-African American GFR(CKD) >90 (>60 ml/min/1.73 sqM); Potassium 3.5 mmol/L (3.5-5.1); Sodium 137 mmol/L (137-145); Total Bilirubin 0.7 mg/dL (0.2-1.3); Total Protein 6.9 g/dL (6.3-8.2)
[2020-12-22 23:22] LABS: Alcohol 200 mg/dL
--- NOTE | 2020-12-22 23:29 | XR ---
EXAMINATION TYPE: XR chest 2V DATE OF EXAM: 12/22/2020 COMPARISON: 03/18/2019 HISTORY: Chest pain TECHNIQUE: FINDINGS: There is no heart failure nor confluent pneumonic infiltrate. Costophrenic angles are clear . There are no hilar masses. There are chest leads. IMPRESSION: No active cardiopulmonary disease. Normal heart. No change.
--- NOTE | 2020-12-23 00:34 | ED ---
SOB HPI - General Chief Complaint: Shortness of Breath Stated Complaint: Shortness of Breath Time Seen by Provider: 12/22/20 21:50 Source: patient, EMS Mode of arrival: EMS Limitations: no limitations - History of Present Illness Initial Comments: Patient is a 60-year-old female with history of heart failure, diabetes, hypertension, alcohol abuse, presenting to the emergency department via EMS with complaints of shortness of breath increasing over the past few weeks as well as chest pressure that started yesterday. Patient states she believes her s hortness of breath is caused by her ALLERGIES however it seems to be getting worse. She also feels like something is sitting on her chest. She denies any sharp pains. She denies any fevers or chills, no nausea or vomiting, no abdominal pain or diarrhea. She is an every day smoker, alcohol abuse. She has been drinking whiskey to help with her symptoms. She has no further complaints at this time. Upon arrival to the ER her vitals are stable. - Related Data Home Medications Medication Instructions Recorded Confirmed Metoprolol Tartrate [Lopressor] 25 mg PO BID 03/17/19 10/11/20 traZODone HCL [Desyrel] 150 mg PO HS 05/09/19 10/11/20 Multivit with Calcium,Iron,Min 1 each PO DAILY 05/18/19 10/11/20 [Women's Multivitamin] Calcium Carbonate/Vitamin D3 1 each PO DAILY 08/31/20 10/11/20 [Calcium 600-D3 20 mcg (800 Unit)] Glimepiride [Amaryl] 2 mg PO DAILY 08/31/20 10/11/20 metFORMIN HCL [Glucophage] 500 mg PO BID 08/31/20 10/11/20 Melatonin 5 mg PO HS 10/08/20 10/11/20 diphenhydrAMINE [Benadryl] 25 mg PO HS PRN 10/08/20 10/11/20 Allergies Allergy/AdvReac Type Severity Reaction Status Date / Time azithromycin [From Zithromax] Allergy "had very Verified 12/22/20 21:58 bad thrush" Iodinated Contrast Media Allergy Anaphylaxis- Verified 12/22/20 21:58 [Iodinated Contrast Media - Lungs IV Dye] filled up with fluid shellfish derived [Shellfish] Allergy Swelling, Verified 12/22/20 21:58 NAUSEA pregabalin [From Lyrica] AdvReac Nausea & Verified 12/22/20 21:58 Vomiting, dizziness Review of Systems ROS Statement: Those systems with pertinent positive or pertinent negative responses have been documented in the HPI. ROS Other: All systems not noted in ROS Statement are negative. Past Medical History Past Medical History: Cancer, Heart Failure, CVA/TIA, Diabetes Mellitus, Hypertension, Myocardial Infarction (CO), Osteoarthritis (OA), Seizure Disorder Additional Past Medical History / Comment(s): difficulty swallowing, ETOH abuse Hx, chronic back pain, neuropathy lower extremities, R foot ulcer 2015, abdo earlene wound 2011 (states hernia surgery), CVA 2002 affected rt eye vision now resolved, still has numbness rt hand 4-5th fingers, hx TIA's, concussion from fall 2010, balance issues, Hx of tx for TB at 5 yrs old, CO per EKG, seizure history from etoh-yrs ago, spot on liver, Hx rib fractures & L ankle fracture., hx squamous cell cancer left forearm, current skin ca rt arm, Last Myocardial Infarction Date:: 2014 per EKG History of Any Multi-Drug Resistant Organisms: None Reported Date of last positivie culture/infection: None MDRO Source:: None Past Surgical History: Section, Hernia Repair, Orthopedic Surgery, Tonsillectomy Additional Past Surgical History / Comment(s): Ventral hernia repair x 4, Section X2, debridements of R foot and abdomen, colonoscopy, laparoscopy, seromas x 2 drained, ganglion cysts, left squamous cell ca removed, cataracts, EGD Past Anesthesia/Blood Transfusion Reactions: No Reported Reaction, Motion Sickness Past Psychological History: Anxiety, Depression Smoking Status: Current every day smoker Past Alcohol Use History: Abuse, Daily, Heavy Past Drug Use History: Marijuana - Past Family History Father Family Medical History: No Reported History Additional Family Medical History / Comment(s): . Mother Family Medical History: Cancer Additional Family Medical History / Comment(s): Mother at age 65 from breast cancer/bone. Brother(s) Additional Family Medical History / Comment(s): Patient has 1 brother that from a motor vehicle accident involving alcohol. Patient has no sisters. Rachele ent has 1 son 21 years old and one daughter 23 years old and she has no contact with her children. General Exam - General Exam Comments Initial Comments: GENERAL: Patient is well-developed and well-nourished. Patient is nontoxic and in no acute distress. HEAD: Atraumatic, normocephalic. EYES: Pupils equal round and reactive to light, extraocular movements intact, sclera anicteric, conjunctiva are normal. Eyelids were unremarkable. ENT: TMs normal, nares patent, oropharynx clear without exudates. Moist mucous membranes. NECK: Normal range of motion, supple without lymphadenopathy or JVD. LUNGS: Slightly labored respirations, scattered congestion throughout. HEART: Regular rate and rhythm without murmurs, rubs or gallops. ABDOMEN: Soft, nontender, normoactive bowel sounds. No guarding, no rebound. No masses appreciated. : Deferred MUSCULOSKELETAL: Normal extremities with adequate strength and normal range of motion, no pitting or edema. No clubbing or cyanosis. NEUROLOGICAL: Patient is alert and oriented x 3. Motor and sensory are also intact. Cranial nerves II through XII grossly intact. Symmetrical smile. Normal speech, normal gait. PSYCH: Normal mood, normal affect. SKIN: Warm, Dry, normal turgor, no rashes or lesions noted. Limitations: no limitations Course Vital Signs 12/22/20 12/22/20 12/22/20 21:51 22:07 22:57 Temperature 98.3 F Pulse Rate 101 H 87 90 Respiratory 20 18 Rate Blood Pressure 141/79 140/72 O2 Sat by Pulse 97 95 Oximetry 12/22/20 12/23/20 23:55 01:31 Temperature Pulse Rate 98 100 Respiratory 18 18 Rate Blood Pressure 118/71 126/75 O2 Sat by Pulse 96 97 Oximetry Medical Decision Making - Medical Decision Making Patient is a 60-year-old female with history of alcohol abuse, hypertension, diabetes, heart disease, presenting with shortness of breath over the past few weeks, as well as chest pressure. Her initial vitals are stable. EKG shows no acute process, chest x-rays within normal limits. Labs are unremarkable except for lactic acid of 3.0. Troponin and BNP are both normal. Alcohol is 200. Patient will be admitted for chest pain rule out, serial troponins. We will consult cardiology for the morning. I will also put [facility] protocol on for alcohol withdrawals. Patient is in agreement with this plan of care. Patient accepted by Dr. Coreas. Case discussed with Dr. Henriquez. - Lab Data Result diagrams: 12/22/20 22:09 12/22/20 22:09 Lab Results 12/22/20 12/22/20 12/22/20 Range/Units 22:09 22:09 22:09 WBC 4.9 (3.8-10.6) k/uL RBC 4.10 (3.80-5.40) m/uL Hgb 13.9 (11.4-16.0) gm/dL Hct 39.0 (34.0-46.0) % MCV 95.0 (80.0-100.0) fL MCH 33.8 (25.0-35.0) pg MCHC 35.6 (31.0-37.0) g/dL RDW 12.8 (11.5-15.5) % Plt Count 167 (150-450) k/uL MPV 7.2 Neutrophils % 38 % Lymphocytes % 50 % Monocytes % 6 % Eosinophils % 2 % Basophils % 2 % Neutrophils # 1.9 (1.3-7.7) k/uL Lymphocytes # 2.4 (1.0-4.8) k/uL Monocytes # 0.3 (0-1.0) k/uL Eosinophils # 0.1 (0-0.7) k/uL Basophils # 0.1 (0-0.2) k/uL PT 11.2 (9.0-12.0) sec INR 1.1 (<1.2) APTT 24.1 (22.0-30.0) sec Sodium 137 (137-145) mmol/L Potassium 3.5 (3.5-5.1) mmol/L Chloride 96 L (98-107) mmol/L Carbon Dioxide 27 (22-30) mmol/L Anion Gap 14 mmol/L BUN 5 L (7-17) mg/dL Creatinine 0.53 (0.52-1.04) mg/dL Est GFR (CKD-EPI)AfAm >90 (>60 ml/min/1.73 sqM) Est GFR (CKD-EPI)NonAf >90 (>60 ml/min/1.73 sqM) Glucose 113 H (74-99) mg/dL Lactic Ac Sepsis Rflx Plasma Lactic Acid Severino (0.7-2.0) mmol/L Calcium 10.1 (8.4-10.2) mg/dL Magnesium 1.4 L (1.6-2.3) mg/dL Total Bilirubin 0.7 (0.2-1.3) mg/dL AST 59 H (14-36) U/L ALT 41 H (4-34) U/L Alkaline Phosphatase 39 (38-126) U/L Troponin I (0.000-0.034) ng/mL NT-Pro-B Natriuret Pep pg/mL Total Protein 6.9 (6.3-8.2) g/dL Albumin 4.2 (3.5-5.0) g/dL Serum Alcohol 200 mg/dL Coronavirus (PCR) (Not Detectd) 12/22/20 12/22/20 12/22/20 Range/Units 22:09 22:09 22:09 WBC (3.8-10.6) k/uL RBC (3.80-5.40) m/uL Hgb (11.4-16.0) gm/dL Hct (34.0-46.0) % MCV (80.0-100.0) fL MCH (25.0-35.0) pg MCHC (31.0-37.0) g/dL RDW (11.5-15.5) % Plt Count (150-450) k/uL MPV Neutrophils % % Lymphocytes % % Monocytes % % Eosinophils % % Basophils % % Neutrophils # (1.3-7.7) k/uL Lymphocytes # (1.0-4.8) k/uL Monocytes # (0-1.0) k/uL Eosinophils # (0-0.7) k/uL Basophils # (0-0.2) k/uL PT (9.0-12.0) sec INR (<1.2) APTT (22.0-30.0) sec Sodium (137-145) mmol/L Potassium (3.5-5.1) mmol/L Chloride (98-107) mmol/L Carbon Dioxide (22-30) mmol/L Anion Gap mmol/L BUN (7-17) mg/dL Creatinine (0.52-1.04) mg/dL Est GFR (CKD-EPI)AfAm (>60 ml/min/1.73 sqM) Est GFR (CKD-EPI)NonAf (>60 ml/min/1.73 sqM) Glucose (74-99) mg/dL Lactic Ac Sepsis Rflx Plasma Lactic Acid Severino 3.0 H* (0.7-2.0) mmol/L Calcium (8.4-10.2) mg/dL Magnesium (1.6-2.3) mg/dL Total Bilirubin (0.2-1.3) mg/dL AST (14-36) U/L ALT (4-34) U/L Alkaline Phosphatase (38-126) U/L Troponin I <0.012 (0.000-0.034) ng/mL NT-Pro-B Natriuret Pep 75 pg/mL Total Protein (6.3-8.2) g/dL Albumin (3.5-5.0) g/dL Serum Alcohol mg/dL Coronavirus (PCR) (Not Detectd) 12/22/20 12/22/20 Range/Units 22:09 23:20 WBC (3.8-10.6) k/uL RBC (3.80-5.40) m/uL Hgb (11.4-16.0) gm/dL Hct (34.0-46.0) % MCV (80.0-100.0) fL MCH (25.0-35.0) pg MCHC (31.0-37.0) g/dL RDW (11.5-15.5) % Plt Count (150-450) k/uL MPV Neutrophils % % Lymphocytes % % Monocytes % % Eosinophils % % Basophils % % Neutrophils # (1.3-7.7) k/uL Lymphocytes # (1.0-4.8) k/uL Monocytes # (0-1.0) k/uL Eosinophils # (0-0.7) k/uL Basophils # (0-0.2) k/uL PT (9.0-12.0) sec INR (<1.2) APTT (22.0-30.0) sec Sodium (137-145) mmol/L Potassium (3.5-5.1) mmol/L Chloride (98-107) mmol/L Carbon Dioxide (22-30) mmol/L Anion Gap mmol/L BUN (7-17) mg/dL Creatinine (0.52-1.04) mg/dL Est GFR (CKD-EPI)AfAm (>60 ml/min/1.73 sqM) Est GFR (CKD-EPI)NonAf (>60 ml/min/1.73 sqM) Glucose (74-99) mg/dL Lactic Ac Sepsis Rflx Y Plasma Lactic Acid Severino (0.7-2.0) mmol/L Calcium (8.4-10.2) mg/dL Magnesium (1.6-2.3) mg/dL Total Bilirubin (0.2-1.3) mg/dL AST (14-36) U/L ALT (4-34) U/L Alkaline Phosphatase (38-126) U/L Troponin I (0.000-0.034) ng/mL NT-Pro-B Natriuret Pep pg/mL Total Protein (6.3-8.2) g/dL Albumin (3.5-5.0) g/dL Serum Alcohol mg/dL Coronavirus (PCR) Not Detected (Not Detectd) - EKG Data EKG Comments: Normal sinus rhythm, left axis deviation, cannot rule out anterior infarct, age undetermined, no signs of an acute ischemic process. Ventricular rate 89, [place] interval 118, QTC 390. Similar to previous on 03/09/2018. Disposition Clinical Impression: Chest pain, Dyspnea, Alcohol abuse Disposition: ADMITTED IP TO THIS HOSP Condition: Stable Is patient prescribed a controlled substance at d/c from ED?: No Decision Date: 12/23/20 Decision Time: 01:56
[2020-12-23] MEDS ORDERED: LORazepam 2 MG/ML INJ IV PRN (01:55)
[2020-12-23] MEDS ORDERED: THIAMINE 100 MG/ML 2 ML VIAL IM STA (01:55)
[2020-12-23 07:25] LABS: Glucose,Whole Blood 177 mg/dL (75-99)
[2020-12-23] MEDS ORDERED: ONDANSETRON 4 MG/2 ML VIAL IVP PRN (08:18)
[2020-12-23] MEDS ORDERED: SODIUM CHLORIDE 0.9% 1,000 ML with MVI, ADULT NO.4 WITH VIT K 10 ML, THIAMINE 100 MG, F... IV ONE ×4 (08:40)
--- NOTE | 2020-12-23 08:42 | P.CRDCN ---
History of Present Illness Consult date: 12/23/20 Chief complaint: Shortness of breath History of present illness: This is a 68-year-old female patient with a past medical history significant for diabetes and hypertension and excessive alcohol use and also history of "congestive heart failure" presented to the emergency department with shortness of breath. When the patient was seen this morning she was quite agitated and she is going through alcohol withdrawal. She stated that she drinks excessively yesterday. She took at least 4 large bottles of beers. Clearly she is going through withdrawal right now. We consulted to see the patient mainly because of shortness of breath. The patient describes shortness of breath which is chronic and unchanged compared to before. Currently she denies any symptoms of chest pain or chest discomfort. No syncope or presyncope. No feeling of dizziness or lightheadedness. She is feeling her heart is fast and clearly she is in sinus tachycardia related likely to alcohol withdrawal. No history of coronary artery disease. She underwent a stress test in 2019 and that came in to be unremarkable for ischemia and echo also in 2019 showing normal left ventricular systolic function without significant valvular abnormalities. On examination to day she does have a very minimal crackles in both lung lara but she does not look in any overt congestive heart failure. No lower extremities edema noted. The chest x-ray showed no acute abnormalities. The NT proBNP came in to be low but the patient is obese. The blood pressure is elevated which could be also related to alcohol withdrawal. Past Medical History Past Medical History: Cancer, Heart Failure, CVA/TIA, Diabetes Mellitus, Hypertension, Myocardial Infarction (MT), Osteoarthritis (OA), Seizure Disorder Additional Past Medical History / Comment(s): difficulty swallowing, ETOH abuse Hx, chronic back pain, neuropathy lower extremities, R foot ulcer 2015, abdominal wound 2011 (states hernia surgery), CVA 2002 affected rt eye vision now resolved, still has numbness rt hand 4-5th fingers, hx TIA's, concussion from fall 2010, balance issues, Hx of tx for TB at 5 yrs old, MT per EKG, seizure history from etoh-yrs ago, spot on liver, Hx rib fractures & L ankle fracture., hx squamous cell cancer left forearm, current skin ca rt arm, Last Myocardial Infarction Date:: 2014 per EKG History of Any Multi-Drug Resistant Organisms: None Reported Date of last positivie culture/infection: None MDRO Source:: None Past Surgical History: Section, Hernia Repair, Orthopedic Surgery, Tonsillectomy Additional Past Surgical History / Comment(s): Ventral hernia repair x 4, Section X2, debridements of R foot and abdomen, colonoscopy, laparoscopy, seromas x 2 drained, ganglion cysts, left squamous cell ca removed, cataracts, EGD Past Anesthesia/Blood Transfusion Reactions: No Reported Reaction, Motion Sickness Past Psychological History: Anxiety, Depression Smoking Status: Current every day smoker Past Alcohol Use History: Abuse, Daily, Heavy Past Drug Use History: Marijuana - Past Family History Father Family Medical History: No Reported History Additional Family Medical History / Comment(s): . Mother Family Medical History: Cancer Additional Family Medical History / Comment(s): Mother at age 65 from breast cancer/bone. Brother(s) Additional Family Medical History / Comment(s): Patient has 1 brother that from a motor vehicle accident involving alcohol. Patient has no sisters. Patient has 1 son 21 years old and one daughter 23 years old and she has no contact with her children. Medications and Allergies Home Medications Medication Instructions Recorded Confirmed Type Metoprolol Tartrate [Lopressor] 25 mg PO BID 03/17/19 10/11/20 History traZODone HCL [Desyrel] 150 mg PO HS 05/09/19 10/11/20 History Multivit with Calcium,Iron,Min 1 each PO DAILY 05/18/19 10/11/20 History [Women's Multivitamin] Calcium Carbonate/Vitamin D3 1 each PO DAILY 08/31/20 10/11/20 History [Calcium 600-D3 20 mcg (800 Unit)] Glimepiride [Amaryl] 2 mg PO DAILY 08/31/20 10/11/20 History metFORMIN HCL [Glucophage] 500 mg PO BID 08/31/20 10/11/20 History Melatonin 5 mg PO HS 10/08/20 10/11/20 History diphenhydrAMINE [Benadryl] 25 mg PO HS PRN 10/08/20 10/11/20 History Allergies Allergy/AdvReac Type Severity Reaction Status Date / Time azithromycin [From Zithromax] Allergy "had very Verified 12/22/20 21:58 bad thrush" Iodinated Contrast Media Allergy Anaphylaxis- Verified 12/22/20 21:58 [Iodinated Contrast Media - Lungs IV Dye] filled up with fluid shellfish derived [Shellfish] Allergy Swelling, Verified 12/22/20 21:58 NAUSEA pregabalin [From Lyrica] AdvReac Nausea & Verified 12/22/20 21:58 Vomiting, dizziness Physical Exam Vitals: Vital Signs Temp Pulse Pulse Resp BP BP Pulse Ox 12/23/20 07:00 97.9 F 122 H 16 163/80 97 12/23/20 03:15 98.6 F 105 H 22 158/71 96 12/23/20 01:31 100 18 126/75 97 12/22/20 23:55 98 18 118/71 96 12/22/20 22:57 90 18 140/72 95 12/22/20 22:07 87 12/22/20 21:51 98.3 F 101 H 20 141/79 97 Intake and Output 12/22/20 12/23/20 12/23/20 22:59 06:59 14:59 Other: # Voids 0 Weight 97.976 kg 97.976 kg - Constitutional General appearance: no acute distress - Respiratory Respiratory: bilateral: rales - Cardiovascular Rhythm: regular Heart sounds: normal: S1, S2 Abnormal Heart Sounds: systolic murmur Results 12/22/20 22:09 12/22/20 22:09 Cardiac Enzymes 12/22/20 12/22/20 12/23/20 Range/Units 22:09 22:09 03:29 AST 59 H (14-36) U/L Troponin I <0.012 <0.012 (0.000-0.034) ng/mL 12/23/20 Range/Units 06: AST (14-36) U/L Troponin I <0.012 (0.000-0.034) ng/mL Coagulation 12/22/20 Range/Units 22:09 PT 11.2 (9.0-12.0) sec APTT 24.1 (22.0-30.0) sec CBC 12/22/20 Range/Units 22:09 WBC 4.9 (3.8-10.6) k/uL RBC 4.10 (3.80-5.40) m/uL Hgb 13.9 (11.4-16.0) gm/dL Hct 39.0 (34.0-46.0) % Plt Count 167 (150-450) k/uL Comprehensive Metabolic Panel 12/22/20 Range/Units 22:09 Sodium 137 (137-145) mmol/L Potassium 3.5 (3.5-5.1) mmol/L Chloride 96 L (98-107) mmol/L Carbon Dioxide 27 (22-30) mmol/L BUN 5 L (7-17) mg/dL Creatinine 0.53 (0.52-1.04) mg/dL Glucose 113 H (74-99) mg/dL Calcium 10.1 (8.4-10.2) mg/dL AST 59 H (14-36) U/L ALT 41 H (4-34) U/L Alkaline Phosphatase 39 (38-126) U/L Total Protein 6.9 (6.3-8.2) g/dL Albumin 4.2 (3.5-5.0) g/dL Current Medications Generic Name Dose Route Start Last Admin Trade Name Freq PRN Reason Stop Dose Admin Aspirin 325 mg 12/24/20 09:00 Aspirin 325 Mg Tab PO DAILY [facility] Parenteral Vitamin Supplement 1,011.2 mls @ 125 mls/hr 12/23/20 08:40 10 ml/ Thiamine HCl 100 mg/ IV 12/23/20 16:45 Folic Acid 1 mg/ Sodium .Q8H6M ONE Chloride Insulin Aspart 0 unit 12/23/20 12:30 Insulin Aspart (Novolog) 100 Unit/Ml Vial SQ ACHS [facility] Protocol Lorazepam 1 mg 12/23/20 01:55 Lorazepam 2 Mg/Ml Inj IV Q2HR PRN CIWA 8 or 9 Lorazepam 1 mg 12/23/20 01:55 Lorazepam 2 Mg/Ml Inj IV Q1HR PRN CIWA 10 to 15 Lorazepam 2 mg 12/23/20 01:55 Lorazepam 2 Mg/Ml Inj IV 12/25/20 01:55 Q10M PRN CIWA 16 or higher Metoprolol Succinate 25 mg 12/23/20 09:00 Metoprolol Succinate (Er) 25 Mg Tab.Er.24h PO DAILY [facility] Ondansetron HCl 4 mg 12/23/20 08:18 Ondansetron 4 Mg/2 Ml Vial IVP Q6HR PRN Nausea And Vomiting Thiamine HCl 100 mg 12/23/20 07:30 Thiamine 100 Mg Tab PO BID-W/MEALS [facility] Intake and Output 12/22/20 12/23/20 12/23/20 22:59 06:59 14:59 Other: # Voids 0 Weight 97.976 kg 97.976 kg 12/22/20 22:09 12/22/20 22:09 Assessment and Plan Assessment: Assessment #1 alcohol withdrawal symptoms #2 shortness of breath #3 sinus tachycardia #4 multiple comorbid conditions including diabetes and hypertension Plan #1 the sinus tachycardia is likely related to alcohol withdrawal #2 I am going to start the patient on Toprol-XL #3 the patient does not look in overt congestive heart failure at this point #4 we will obtain an echocardiogram was Doppler #5 monitor the blood pressure and heart rate and adjust the medications accordingly #6 follow-up with the patient
[2020-12-23] MEDS: METOPROLOL SUCCINATE (ER) 25 MG TAB.ER.24H PO SCH (10:40)
[2020-12-23] MEDS: THIAMINE 100 MG TAB PO SCH ×2 (10:40→17:42)
[2020-12-23 12:00] LABS: Glucose,Whole Blood 227 mg/dL (75-99)
[2020-12-23] MEDS: INSULIN ASPART (NovoLOG) 100 UNIT/ML VIAL SQ SCH ×3 (12:54→21:08)
[2020-12-23] MEDS: LORazepam 2 MG/ML INJ IV PRN ×2 (14:10→20:49)
[2020-12-23] MEDS: IPRATROPIUM-ALBUTEROL 3 ML NEB INHALATION PRN (15:36)
[2020-12-23 17:10] LABS: Glucose,Whole Blood 141 mg/dL (75-99)
[2020-12-23] MEDS: AZITHROMYCIN 500 MG TAB PO SCH ×2 (17:42→17:48)
--- NOTE | 2020-12-23 17:58 | P.HPIM ---
History of Present Illness H&P Date: 12/23/20 Chief Complaint: Shortness of breath Ms. Howell is a 60-year-old female with a past medical history of diabetes mellitus, hypertension, alcohol use disorder,? Congestive heart failure coming to the hospital with a chief complaint of difficulty in breathing and alcohol withdrawal. Patient states that she has been dealing with seasonal allergies for the past couple of weeks and eventually started to have difficulty in breathing. Patient also has significant history of smoking 10 cigarettes per day for many years. She also states that she has been drinking excessively beer and whiskey for the past week. Her last drink was yesterday. Patient states that she has difficulty in breathing, with mild cough that is nonproductive in nature. She denies having any fevers chills or rigors. She denies having any chest pain or palpitations. No sick contacts. Patient denies having any dizziness lightheadedness or loss of consciousness. She denies having any lower extremity swelling, no recent travel. In the ER, vitals at the time of admission temperature 98.3, heart rate 101, respiratory 20, blood pressure 1 41 x 79, saturating at 97% on room air. She had blood work done showing a white count of 4.9, hemoglobin 13.9, platelets 167. Sodium 137, potassium 3.5, chloride 96, bicarbonate 27, BUN 5, creatinine 0.53. PT 11.2, INR 1.1. AST 59, AST 41, alkaline phosphatase 39, troponins less than 0.0122. Lactic acid 3.0. Serum alcohol level 200. Mensah virus PCR negative. Chest x-ray showing no active daily cardiopulmonary disease. EKG done showing normal sinus rhythm with left axis deviation. Review of Systems CONSTITUTIONAL: No fever, no malaise, no fatigue. HEENT: No recent visual problems or hearing problems. Denied any sore throat. CARDIOVASCULAR: No chest pain or palpitations PULMONARY: As per HPI GASTROINTESTINAL: No abdominal pain nausea vomiting or diarrhea. NEUROLOGICAL: No headaches, no weakness, no numbness. HEMATOLOGICAL: Denies any bleeding or petechiae. GENITOURINARY: Denies any burning micturition, frequency, or urgency. MUSCULOSKELETAL/RHEUMATOLOGICAL: Denies any joint pain, swelling, or any muscle pain. ENDOCRINE: Denies any polyuria or polydipsia. PSYC: No depression or anxiety Past Medical History Past Medical History: Cancer, Heart Failure, CVA/TIA, Diabetes Mellitus, Hypertension, Myocardial Infarction ([place]), Osteoarthritis (OA), Seizure Disorder Additional Past Medical History / Comment(s): difficulty swallowing, ETOH abuse Hx, chronic back pain, neuropathy lower extremities, R foot ulcer 2015, abdominal wound 2011 (states hernia surgery), CVA 2002 affected rt eye vision now resolved, still has numbness rt hand 4-5th fingers, hx TIA's, concussion from fall 2010, balance issues, Hx of tx for TB at 5 yrs old, [place] per EKG, seizure history from etoh-yrs ago, spot on liver, Hx rib fractures & L ankle fracture., hx squamous cell cancer left forearm, current skin ca rt arm, Last Myocardial Infarction Date:: 2014 per EKG History of Any Multi-Drug Resistant Organisms: None Reported Date of last positivie culture/infection: None MDRO Source:: None Past Surgical History: Section, Hernia Repair, Orthopedic Surgery, Tonsillectomy Additional Past Surgical History / Comment(s): Ventral hernia repair x 4, Section X2, debridements of R foot and abdomen, colonoscopy, laparoscopy, seromas x 2 drained, ganglion cysts, left squamous cell ca removed, cataracts, EGD Past Anesthesia/Blood Transfusion Reactions: No Reported Reaction, Motion Sickness Past Psychological History: Anxiety, Depression Smoking Status: Current every day smoker Past Alcohol Use History: Abuse, Daily, Heavy Past Drug Use History: Marijuana - Past Family History Father Family Medical History: No Reported History Additional Family Medical History / Comment(s): . Mother Family Medical History: Cancer Additional Family Medical History / Comment(s): Mother at age 65 from breast cancer/bone. Brother(s) Additional Family Medical History / Comment(s): Patient has 1 brother that from a motor vehicle accident involving alcohol. Patient has no sisters. Patient has 1 son 21 years old and one daughter 23 years old and she has no contact with her children. Medications and Allergies Home Medications Medication Instructions Recorded Confirmed Type Metoprolol Tartrate [Lopressor] 25 mg PO BID 03/17/19 12/23/20 History Multivit with Calcium,Iron,Min 1 tab PO DAILY 05/18/19 12/23/20 History [Women's Multivitamin] Calcium Carbonate/Vitamin D3 1 tab PO DAILY 08/31/20 12/23/20 History [Calcium 600-D3 20 mcg (800 Unit)] Glimepiride [Amaryl] 2 mg PO DAILY 08/31/20 12/23/20 History metFORMIN HCL [Glucophage] 500 mg PO BID 08/31/20 12/23/20 History Melatonin 5 mg PO HS 10/08/20 12/23/20 History diphenhydrAMINE [Benadryl] 25 mg PO HS PRN 10/08/20 12/23/20 History Omeprazole 20 mg PO DAILY 12/23/20 12/23/20 History traZODone HCL 150 mg PO HS 12/23/20 12/23/20 History Allergies Allergy/AdvReac Type Severity Reaction Status Date / Time azithromycin [From Zithromax] Allergy "had very Verified 12/23/20 08:56 bad thrush" Iodinated Contrast Media Allergy Anaphylaxis- Verified 12/23/20 08:56 [Iodinated Contrast Media - Lungs IV Dye] filled up with fluid shellfish derived [Shellfish] Allergy Swelling, Verified 12/23/20 08:56 NAUSEA pregabalin [From Lyrica] AdvReac Nausea & Verified 12/23/20 08:56 Vomiting, dizziness Physical Exam Vitals: Vital Signs Temp Pulse Pulse Resp BP BP Pulse Ox 12/23/20 07:00 97.9 F 122 H 16 163/80 97 12/23/20 03:15 98.6 F 105 H 22 158/71 96 12/23/20 01:31 100 18 126/75 97 12/22/20 23:55 98 18 118/71 96 12/22/20 22:57 90 18 140/72 95 12/22/20 22:07 87 12/22/20 21:51 98.3 F 101 H 20 141/79 97 Intake and Output 12/22/20 12/23/20 12/23/20 22:59 06:59 14:59 Other: # Voids 0 Weight 97.976 kg 97.976 kg GENERAL: The patient is alert and oriented x3, not in any acute distress. HEENT: Pupils are round and equally reacting to light. EOMI. No scleral icterus. no conjunctival pallor. Normocephalic, atraumatic. No pharyngeal erythema. No thyromegaly. CARDIOVASCULAR: S1 and S2 present. No murmurs, rubs, or gallops. Tachycardia PULMONARY: Bilateral coarse breath sounds. Prolonged expiration.. ABDOMEN: Soft, nontender, nondistended, normoactive bowel sounds. No palpable organomegaly. MUSCULOSKELETAL: No joint swelling or deformity. EXTREMITIES: No cyanosis, clubbing, or pedal edema. NEUROLOGICAL: Gross neurological examination did not reveal any focal deficits. Positive for tremors Results CBC & Chem 7: 12/22/20 22:09 12/22/20 22:09 Labs: Abnormal Lab Results - Last 24 Hours (Table) 12/22/20 12/22/20 12/23/20 Range/Units 22:09 22:09 01:30 Chloride 96 L (98-107) mmol/L BUN 5 L (7-17) mg/dL Glucose 113 H (74-99) mg/dL POC Glucose (mg/dL) (75-99) mg/dL Plasma Lactic Acid Severino 3.0 H* 4.5 H* (0.7-2.0) mmol/L Magnesium 1.4 L (1.6-2.3) mg/dL AST 59 H (14-36) U/L ALT 41 H (4-34) U/L 12/23/20 12/23/20 12/23/20 Range/Units 04:14 07:06 07:18 Chloride (98-107) mmol/L BUN (7-17) mg/dL Glucose (74-99) mg/dL POC Glucose (mg/dL) 177 H (75-99) mg/dL Plasma Lactic Acid Severino 3.9 H* 3.2 H* (0.7-2.0) mmol/L Magnesium (1.6-2.3) mg/dL AST (14-36) U/L ALT (4-34) U/L Thrombosis Risk Factor Assmnt - Choose All That Apply Any of the Below Risk Factors Present?: Yes Each Factor Represents 1 point: Age 41-60 years, Obesity (BMI >25) Other Risk Factors: No Other congenital or acquired thrombophilia - If yes, enter type in comment: No Thrombosis Risk Factor Assessment Total Risk Factor Score: 2 Thrombosis Risk Factor Assessment Level: Low Risk Assessment and Plan Assessment: ASSESSMENT Shortness of breath - multifactorial COPD,? CHF exacerbation Alcohol intoxication Lactic acidosis Transaminitis - alcohol related Hypomagnesemia Alcohol abuse disorder Diabetes mellitus Hypertension History of [place] Osteoarthritis Seizure disorder History of squamous cell cancer of the left forearm Concussion injury from falling 2011 Chronic low back pain Obesity with BMI of 34 Plan: Patient is started on breathing treatments with DuoNeb. Continue to monitor for alcohol withdrawal symptoms- CIWA protocol. Continue with IV fluids at 1 25 mL/h due to lactic acidosis. Patient clinically improving but lactic acid is still elevated, will order blood cultures. Continue with thiamine and folic acid supplements. 2-D echocardiogram ordered. Will replace magnesium. GI DVT prophylaxis. Will repeat a.m. labs. Further recommendations to follow depending on the progress of the patient.
[2020-12-23] MEDS: SODIUM CHLORIDE 0.9% 1,000 ML IV SCH (18:48)
[2020-12-23] MEDS: FOLIC ACID 1 MG TAB PO SCH (19:58)
[2020-12-23] MEDS: ENOXAPARIN 40 MG/0.4 ML SYRINGE SQ SCH (19:58)
[2020-12-23 20:27] LABS: Glucose,Whole Blood 156 mg/dL (75-99)
[2020-12-23] MEDS: IBUPROFEN 800 MG TAB PO PRN (21:21)
[2020-12-23] MEDS: GABAPENTIN 300 MG CAP PO SCH (21:22)
[2020-12-23] MEDS: chlordiazePOXIDE 25 MG CAP PO SCH (21:22)
[2020-12-23] MEDS: hydrALAZINE HCL 20 MG/ML 1 ML VIAL IVP PRN (22:19)
[2020-12-24] MEDS: SODIUM CHLORIDE 0.9% 1,000 ML IV SCH ×3 (05:28→17:55)
[2020-12-24 06:50] LABS: Glucose,Whole Blood 136 mg/dL (75-99)
[2020-12-24] MEDS: IPRATROPIUM-ALBUTEROL 3 ML NEB INHALATION PRN ×2 (07:17→11:25)
[2020-12-24] MEDS: ENOXAPARIN 40 MG/0.4 ML SYRINGE SQ SCH (07:39)
[2020-12-24] MEDS: chlordiazePOXIDE 25 MG CAP PO SCH ×4 (07:39→23:31)
[2020-12-24] MEDS: THIAMINE 100 MG TAB PO SCH ×2 (07:40→17:52)
[2020-12-24] MEDS: FOLIC ACID 1 MG TAB PO SCH (07:40)
[2020-12-24] MEDS: PANTOPRAZOLE 40 MG TABLET PO SCH (07:40)
[2020-12-24] MEDS: GABAPENTIN 300 MG CAP PO SCH ×3 (07:40→23:31)
[2020-12-24] MEDS: METOPROLOL SUCCINATE (ER) 25 MG TAB.ER.24H PO SCH (07:40)
[2020-12-24 08:47] LABS: Basophils # (A) 0.02 X 10*3/uL (0.00-0.10); Basophils % (A) 0.8 %; Eosinophils # (A) 0.09 X 10*3/uL (0.04-0.35); Eosinophils % (A) 3.4 %; HCT 36.6 % (37.2-46.3); HGB 12.3 g/dL (12.0-15.0); Lymphocytes # (A) 1.17 X 10*3/uL (0.90-5.00); Lymphocytes % (A) 44.8 %; MCH 33.3 pg (27.0-32.0); MCHC 33.6 g/dL (32.0-37.0); MCV 99.2 fL (80.0-97.0); Mean Platelet Volume 9.6 fL (9.5-12.2); Monocytes # (A) 0.22 X 10*3/uL (0.20-1.00); Monocytes % (A) 8.4 %; Neutrophils # (A) 1.11 X 10*3/uL (1.80-7.70); Neutrophils % (A) 42.6 %; Platelet Count 109 X 10*3/uL (140-440); RBC 3.69 X 10*6/uL (4.10-5.20); RDW 12.5 % (11.5-14.5); WBC 2.61 X 10*3/uL (4.50-10.00)
[2020-12-24] MEDS ORDERED: ASPIRIN 325 MG TAB PO SCH (09:00)
[2020-12-24] MEDS ORDERED: lisinopriL 10 MG TAB PO SCH (09:00)
[2020-12-24 09:25] LABS: African American GFR (CKD) 114.8 (60.0-200.0); Albumin 3.8 g/dL (3.80-4.90); Albumin/Globulin Ratio 1.73 (1.60-3.17); Anion Gap 5.1 mmol/L (4.00-12.00); BUN/Creat Ratio 8.33 Ratio (12.00-20.00); Calcium 8.5 mg/dL (8.7-10.3); Carbon Dioxide 30.9 mmol/L (21.6-31.8); Chol/HDL Ratio 2.29; Globulin 2.2 g/dL (1.6-3.3); LDL Cholesterol,Calculated 57.2 mg/dL (0.0-131.0); Non-African American GFR(CKD) 99.1 (60.0-200.0); Potassium 3.5 mmol/L (3.5-5.5); Total Bilirubin 1.8 mg/dL (0.2-1.2); VLDL Calculation 31.8 mg/dL (5.00-40.00)
[2020-12-24] MEDS: cloNIDine HCL 0.1 MG TAB PO SCH ×3 (09:29→23:31)
[2020-12-24] MEDS: INSULIN ASPART (NovoLOG) 100 UNIT/ML VIAL SQ SCH ×4 (09:29→23:31)
[2020-12-24] MEDS: LORazepam 2 MG/ML INJ IV PRN ×3 (09:43→23:42)
--- NOTE | 2020-12-24 10:00 | P.PN ---
Subjective Progress Note Date: 12/24/20 HISTORY OF PRESENT ILLNESS: This is a 68-year-old female patient with a past medical history significant for diabetes and hypertension and excessive alcohol use and also history of "congestive heart failure" presented to the emergency department with shortness of breath. When the patient was seen this morning she was quite agitated and she is going through alcohol withdrawal. She stated that she drinks excessively yesterday. She took at least 4 large bottles of beers. Clearly she is going through withdrawal right now. We consulted to see the patient mainly because of shortness of breath. The patient describes shortness of breath which is chronic and unchanged compared to before. Currently she denies any symptoms of chest pain or chest discomfort. No syncope or presyncope. No feeling of dizziness or lightheadedness. She is feeling her heart is fast and clearly she is in sinus tachycardia related likely to alcohol withdrawal. No history of coronary artery disease. She underwent a stress test in 2019 and that came in to be unremarkable for ischemia and echo also in 2019 showing normal left ventricular systolic function without significant valvular abnormalities. On examination today she does have a very minimal crackles in both lung lara but she does not look in any overt congestive heart failure. No lower extremities edema noted. The chest x-ray showed no acute abnormalities. The NT proBNP came in to be low but the patient is obese. The blood pressure is elevated which could be also related to alcohol withdrawal. 12/24/2020 Patient examined this morning at the bedside. Patient reports shortness of breath but states she recently got a nebulizer treatment which has helped. Patient has currently going through alcohol withdrawal. She has visible tremors of her extremities. She is on CIWA protocol. Blood pressure this morning is elevated with a reading of 190/107 PHYSICAL EXAM: VITAL SIGNS: Reviewed. GENERAL: Well-developed in no acute distress. NECK: Supple. No JVD or thyromegaly LUNGS: Respirations even and unlabored. Lungs diminished with mild expiratory wheezing noted. HEART: Regular rate and rhythm. S1 and S2 heard. EXTREMITIES: Normal range of motion. No clubbing or cyanosis. Peripheral pulses intact. No lower extremity edema. Patient with visible tremor of extremities. ASSESSMENT: Shortness of breath Sinus tachycardia, resolved ETOH withdrawal Hypertension Diabetes mellitus Nicotine dependence, 1/2 PPD PLAN: 2D echo ordered. Await results. Hypertension likely secondary to ETOH withdrawal Continue Toprol XL. May increase as needed. 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 She may follow up outpatient with Dr. Lawson Nurse practitioner note has been reviewed by physician. Signing provider agrees with the documented findings, assessment, and plan of care. Objective - Vital Signs Vital signs: Vital Signs Temp 97.9 F 12/24/20 07:00 Pulse 84 12/24/20 07:18 Resp 16 12/24/20 07:00 BP 190/107 12/24/20 07:00 Pulse Ox 92 L 12/24/20 07:00 Intake & Output 12/23/20 12/24/20 12/24/20 18:59 06:59 18:59 Other: # Voids 3 2 # Bowel Movements 0 - Labs CBC & Chem 7: 12/24/20 05:53 12/24/20 05:53 Labs: Abnormal Lab Results - Last 24 Hours (Table) 12/23/20 12/23/20 12/23/20 Range/Units 10:43 11:58 13:47 WBC (4.50-10.00) X 10*3/uL RBC (4.10-5.20) X 10*6/uL Hct (37.2-46.3) % MCV (80.0-97.0) fL MCH (27.0-32.0) pg Plt Count (140-440) X 10*3/uL Neutrophils # (1.80-7.70) X 10*3/uL BUN (9.0-27.0) mg/dL BUN/Creatinine Ratio (12.00-20.00) Ratio Glucose (70-110) mg/dL POC Glucose (mg/dL) 227 H (75-99) mg/dL Plasma Lactic Acid Severino 2.6 H* 4.1 H* (0.7-2.0) mmol/L Calcium (8.7-10.3) mg/dL Total Bilirubin (0.2-1.2) mg/dL AST (13-35) U/L Alkaline Phosphatase (41-126) U/L Total Protein (6.2-8.2) g/dL Triglycerides (0.0-149.0) mg/dL HDL Cholesterol (40.0-60.0) mg/dL 12/23/20 12/23/20 12/23/20 Range/Units 17:08 17:21 20:03 WBC (4.50-10.00) X 10*3/uL RBC (4.10-5.20) X 10*6/uL Hct (37.2-46.3) % MCV (80.0-97.0) fL MCH (27.0-32.0) pg Plt Count (140-440) X 10*3/uL Neutrophils # (1.80-7.70) X 10*3/uL BUN (9.0-27.0) mg/dL BUN/Creatinine Ratio (12.00-20.00) Ratio Glucose (70-110) mg/dL POC Glucose (mg/dL) 141 H (75-99) mg/dL Plasma Lactic Acid Severino 2.2 H* 2.8 H* (0.7-2.0) mmol/L Calcium (8.7-10.3) mg/dL Total Bilirubin (0.2-1.2) mg/dL AST (13-35) U/L Alkaline Phosphatase (41-126) U/L Total Protein (6.2-8.2) g/dL Triglycerides (0.0-149.0) mg/dL HDL Cholesterol (40.0-60.0) mg/dL 12/23/20 12/24/20 12/24/20 Range/Units 20:26 05:53 05:53 WBC 2.61 L (4.50-10.00) X 10*3/uL RBC 3.69 L (4.10-5.20) X 10*6/uL Hct 36.6 L (37.2-46.3) % MCV 99.2 H (80.0-97.0) fL MCH 33.3 H (27.0-32.0) pg Plt Count 109 L (140-440) X 10*3/uL Neutrophils # 1.11 L (1.80-7.70) X 10*3/uL BUN 5.0 L (9.0-27.0) mg/dL BUN/Creatinine Ratio 8.33 L (12.00-20.00) Ratio Glucose 111 H (70-110) mg/dL POC Glucose (mg/dL) 156 H (75-99) mg/dL Plasma Lactic Acid Severino (0.7-2.0) mmol/L Calcium 8.5 L (8.7-10.3) mg/dL Total Bilirubin 1.8 H (0.2-1.2) mg/dL AST 37 H (13-35) U/L Alkaline Phosphatase 39 L (41-126) U/L Total Protein 6.0 L (6.2-8.2) g/dL Triglycerides 159.0 H (0.0-149.0) mg/dL HDL Cholesterol 69.0 H (40.0-60.0) mg/dL 12/24/20 Range/Units 06:47 WBC (4.50-10.00) X 10*3/uL RBC (4.10-5.20) X 10*6/uL Hct (37.2-46.3) % MCV (80.0-97.0) fL MCH (27.0-32.0) pg Plt Count (140-440) X 10*3/uL Neutrophils # (1.80-7.70) X 10*3/uL BUN (9.0-27.0) mg/dL BUN/Creatinine Ratio (12.00-20.00) Ratio Glucose (70-110) mg/dL POC Glucose (mg/dL) 136 H (75-99) mg/dL Plasma Lactic Acid Severino (0.7-2.0) mmol/L Calcium (8.7-10.3) mg/dL Total Bilirubin (0.2-1.2) mg/dL AST (13-35) U/L Alkaline Phosphatase (41-126) U/L Total Protein (6.2-8.2) g/dL Triglycerides (0.0-149.0) mg/dL HDL Cholesterol (40.0-60.0) mg/dL
--- NOTE | 2020-12-24 11:46 | ECHOF ---
Referral Reason:SOB MEASUREMENTS -------- HEIGHT: 165.1 cm WEIGHT: 98.0 kg BP: IVSd: 1.4 cm (0.6 - 1.1) LVIDd: 4.5 cm (3.9 - 5.3) LVPWd: 0.9 cm (0.6 - 1.1) IVSs: 1.5 cm LVIDs: 2.3 cm LVPWs: 1.3 cm LAESV Index (A-L): 34.78 ml/m Ao Diam: 3.3 cm (2.0 - 3.7) AV Cusp: 2.1 cm (1.5 - 2.6) MV E Star: 0.57 m/s MV DecT: 241 ms MV A Star: 0.88 m/s MV E/A Ratio: 0.65 RAP: 5.00 mmHg RVSP: 11.42 mmHg FINDINGS -------- Sinus rhythm. This was a technically difficult study with suboptimal views. The left ventricular size is normal. There is mild concentric left ventricular hypertrophy. Overa ll left ventricular systolic function is normal with, an EF between 55 - 60 %. The right ventricle is normal in size. LA is moderately dilated 34-39 ml/m2 The right atrial size is normal. The aortic valve was not well visualized. The mitral valve was not well visualized. Mild mitral regurgitation is present. The tricuspid valve was not well visualized. Mild tricuspid regurgitation present. Right ventricu lar systolic pressure is normal at < 35 mmHg. The pulmonic valve was not well visualized. The aortic root size is normal. Echo free space represents a pericardial fat pad. CONCLUSIONS -------- 1. There is mild concentric left ventricular hypertrophy. 2. Overall left ventricular systolic function is normal with, an EF between 55 - 60 %. 3. LA is moderately dilated 34-39 ml/m2 4. The aortic valve was not well visualized. 5. Mild mitral regurgitation is present. 6. Mild tricuspid regurgitation present. 7. Echo free space represents a pericardial fat pad. QUARTZ ORIENTATOR: Anupama Kerr RDCS
[2020-12-24 11:53] LABS: Glucose,Whole Blood 244 mg/dL (75-99)
--- NOTE | 2020-12-24 13:06 | P.CNPUL ---
History of Present Illness Consult date: 12/24/20 Reason for consult: dyspnea History of present illness: This is a 60-year-old female patient, who came into the hospital because of worsening shortness of breath. She was progressively getting worse over the past 6 weeks. She is alcoholic. She drinks beer and whiskey. She also smokes one pack of cigarettes a day. Denies having any previous history of pulmonary disease or disorder. No history of asthma. She lives in her house. She has 15 cancer within her house and she has several kittens by been probably defecating and urinating within the home environment.. The patient admits that she is not been living in a clean environment. She comes in to the hospital because of worsening shortness of breath. She was also having some signs of alcohol withdrawal and delirium tremens. Today she is feeling better. She is less short of breath. Her voice is hoarse. She has a congested cough. Unable to bring up much sputum. She still has exertional dyspnea. No nausea. No vomiting. No diarrhea. No chest pain. No hemoptysis. No pleurisy or the patient has other comorbidities including previous history of CVA which has resulted in to some vision changes in her right eye, diabetes mellitus and CAD and previous history of seizure disorder. She is afebrile for now and she is hemodynamically stable. Blood work from the emergency showed a white cell count a white count with hemoglobin 13.9. The serum bicarb was 27 with a sodium level of 137. Glucose 113. Coagulation profile was normal. Serum alcohol was 200 the time of admission. Lactic acid level was at 3.0. Troponin was negative at 0.012 and the proBNP level was 75. COVID-19 testing was negative and the patient is fully vaccinated. Review of Systems Constitutional: Reports fatigue, Reports weakness, Reports weight gain Eyes: right decreased vision, denies as per HPI, denies blurred vision, denies bulging eye, denies diplopia, denies discharge, denies dry eye, denies irritation, denies itching, denies pain, denies photophobia, denies loss of peripheral vision, denies loss of vision, denies tunnel vision/blind spots Ears: deny: decreased hearing, ear discharge, earache, tinnitus Ears, nose, mouth and throat: Reports as per HPI, Reports hoarseness Breasts: absent: as per HPI, change in shape, gynecomastia, masses, nipple discharge, pain, skin changes, swelling Cardiovascular: Reports decreased exercise tolerance, Reports dyspnea on exertion Respiratory: Reports cough, Reports cough with sputum, Reports dyspnea, Reports home oxygen, Reports snoring Gastrointestinal: Reports as per HPI Genitourinary: Reports as per HPI Menstruation: Reports as per HPI Musculoskeletal: Reports as per HPI Musculoskeletal: absent: ankle pain, ankle stiffness, ankle swelling, as per HPI, elbow pain, elbow stiffness, elbow swelling, foot pain, foot stiffness, foot swelling, hand pain, hand stiffness, hand swelling, hip pain, hip stiffness, hip swelling, knee pain, knee stiffness, knee swelling, shoulder pain, shoulder stiffness, shoulder swelling, wrist pain, wrist stiffness, wrist swelling Integumentary: Reports as per HPI Neurological: Reports as per HPI Psychiatric: Reports as per HPI Endocrine: Reports as per HPI Hematologic/Lymphatic: Reports as per HPI Allergic/Immunologic: Reports as per HPI Past Medical History Past Medical History: Cancer, Heart Failure, CVA/TIA, Diabetes Mellitus, Hypertension, Myocardial Infarction (UT), Osteoarthritis (OA), Seizure Disorder Additional Past Medical History / Comment(s): difficulty swallowing, ETOH abuse Hx, chronic back pain, neuropathy lower extremities, R foot ulcer 2015, abdominal wound 2011 (states hernia surgery), CVA 2002 affected rt eye vision now resolved, still has numbness rt hand 4-5th fingers, hx TIA's, concussion from fall 2010, balance issues, Hx of tx for TB at 5 yrs old, [place] per EKG, seizure history from etoh-yrs ago, spot on liver, Hx rib fractures & L ankle fracture., hx squamous cell cancer left forearm, current skin ca rt arm, Last Myocardial Infarction Date:: 2014 per EKG History of Any Multi-Drug Resistant Organisms: None Reported Date of last positivie culture/infection: None MDRO Source:: None Past Surgical History: Section, Hernia Repair, Orthopedic Surgery, Tonsillectomy Additional Past Surgical History / Comment(s): Ventral hernia repair x 4, Section X2, debridements of R foot and abdomen, colonoscopy, laparoscopy, seromas x 2 drained, ganglion cysts, left squamous cell ca removed, cataracts, EGD Past Anesthesia/Blood Transfusion Reactions: No Reported Reaction, Motion Sickness Past Psychological History: Anxiety, Depression Smoking Status: Current every day smoker Past Alcohol Use History: Abuse, Daily, Heavy Past Drug Use History: Marijuana - Past Family History Father Family Medical History: No Reported History Additional Family Medical History / Comment(s): . Mother Family Medical History: Cancer Additional Family Medical History / Comment(s): Mother at age 65 from breast cancer/bone. Brother(s) Additional Family Medical History / Comment(s): Patient has 1 brother that from a motor vehicle accident involving alcohol. Patient has no sisters. Patient has 1 son 21 years old and one daughter 23 years old and she has no contact with her children. Medications and Allergies Home Medications Medication Instructions Recorded Confirmed Type Metoprolol Tartrate [Lopressor] 25 mg PO BID 03/17/19 12/23/20 History Multivit with Calcium,Iron,Min 1 tab PO DAILY 05/18/19 12/23/20 History [Women's Multivitamin] Calcium Carbonate/Vitamin D3 1 tab PO DAILY 08/31/20 12/23/20 History [Calcium 600-D3 20 mcg (800 Unit)] Glimepiride [Amaryl] 2 mg PO DAILY 08/31/20 12/23/20 History metFORMIN HCL [Glucophage] 500 mg PO BID 08/31/20 12/23/20 History Melatonin 5 mg PO HS 10/08/20 12/23/20 History diphenhydrAMINE [Benadryl] 25 mg PO HS PRN 10/08/20 12/23/20 History Omeprazole 20 mg PO DAILY 12/23/20 12/23/20 History traZODone HCL 150 mg PO HS 12/23/20 12/23/20 History Allergies Allergy/AdvReac Type Severity Reaction Status Date / Time azithromycin [From Zithromax] Allergy "had very Verified 12/23/20 08:56 bad thrush" Iodinated Contrast Media Allergy Anaphylaxis- Verified 12/23/20 08:56 [Iodinated Contrast Media - Lungs IV Dye] filled up with fluid shellfish derived [Shellfish] Allergy Swelling, Verified 12/23/20 08:56 NAUSEA pregabalin [From Lyrica] AdvReac Nausea & Verified 12/23/20 08:56 Vomiting, dizziness Physical Exam Vitals: Vital Signs Temp Pulse Pulse Resp BP BP Pulse Ox 12/24/20 11:35 86 12/24/20 11:25 88 12/24/20 07:18 84 12/24/20 07:00 97.9 F 92 16 190/107 92 L 12/24/20 02:00 97.9 F 85 17 144/82 93 L 12/24/20 01:52 95 12/23/20 23:00 148/83 12/23/20 22:05 164/94 12/23/20 20:00 98.2 F 96 17 185/96 95 12/23/20 19:55 18 12/23/20 15:48 90 18 12/23/20 15:38 88 18 12/23/20 13:55 98.6 F 84 16 160/74 96 Intake and Output 12/23/20 12/24/20 12/24/20 22:59 06:59 14:59 Other: Voiding Method Bedside Commode # Voids 1 2 Gen. appearance she is calm comfortable not in acute respiratory distress and the patient is breathing normally Head exam was generally normal. There was no scleral icterus or corneal arcus. Mucous membranes were moist. Neck was supple and without jugular venous distension, thyromegaly, or carotid bruits. Carotids were easily palpable bilaterally. There was no adenopathy. Lungs sounds are diminished and the patient has scattered expiratory wheezes throughout the lung his bilaterally Cardiac exam revealed the PMI to be normally situated and sized. The rhythm was regular and no extrasystoles were noted during several minutes of auscultation. The first and second heart sounds were normal and physiologic splitting of the second heart sound was noted. There were no murmurs, rubs, clicks, or gallops. Abdominal exam revealed normal bowel sounds. The abdomen was soft, non-tender, and without masses, organomegaly, or appreciable enlargement of the abdominal aorta. The patient has a large mid abdominal scar which has healed and this is related to previous surgeries that she had in the abdomen including repair of ventral hernias. Examination of the extremities revealed easily palpable radial, femoral and pedal pulses. There was no cyanosis, clubbing or edema. Examination of the skin revealed no evidence of significant rashes, suspicious appearing nevi or other concerning lesions. She has a skin cancer resection from the right upper extremity. Results - Laboratory Findings CBC and BMP: 12/24/20 05:53 12/24/20 05:53 PT/INR, D-dimer PT 11.2 sec (9.0-12.0) 12/22/20 22:09 INR 1.1 (<1.2) 12/22/20 22:09 Abnormal lab findings: Abnormal Labs 12/22/20 12/22/20 12/23/20 22:09 22:09 01:30 WBC RBC Hct MCV MCH Plt Count Neutrophils # Chloride 96 L BUN 5 L BUN/Creatinine Ratio Glucose 113 H POC Glucose (mg/dL) Plasma Lactic Acid Sveerino 3.0 H* 4.5 H* Calcium Magnesium 1.4 L Total Bilirubin AST 59 H ALT 41 H Alkaline Phosphatase Total Protein Triglycerides HDL Cholesterol 12/23/20 12/23/20 12/23/20 04:14 07:06 07:18 WBC RBC Hct MCV MCH Plt Count Neutrophils # Chloride BUN BUN/Creatinine Ratio Glucose POC Glucose (mg/dL) 177 H Plasma Lactic Acid Severino 3.9 H* 3.2 H* Calcium Magnesium Total Bilirubin AST ALT Alkaline Phosphatase Total Protein Triglycerides HDL Cholesterol 12/23/20 12/23/20 12/23/20 10:43 11:58 13:47 WBC RBC Hct MCV MCH Plt Count Neutrophils # Chloride BUN BUN/Creatinine Ratio Glucose POC Glucose (mg/dL) 227 H Plasma Lactic Acid Severino 2.6 H* 4.1 H* Calcium Magnesium Total Bilirubin AST ALT Alkaline Phosphatase Total Protein Triglycerides HDL Cholesterol 12/23/20 12/23/20 12/23/20 17:08 17:21 20:03 WBC RBC Hct MCV MCH Plt Count Neutrophils # Chloride BUN BUN/Creatinine Ratio Glucose POC Glucose (mg/dL) 141 H Plasma Lactic Acid Severino 2.2 H* 2.8 H* Calcium Magnesium Total Bilirubin AST ALT Alkaline Phosphatase Total Protein Triglycerides HDL Cholesterol 12/23/20 12/24/20 12/24/20 20:26 05:53 05:53 WBC 2.61 L RBC 3.69 L Hct 36.6 L MCV 99.2 H MCH 33.3 H Plt Count 109 L Neutrophils # 1.11 L Chloride BUN 5.0 L BUN/Creatinine Ratio 8.33 L Glucose 111 H POC Glucose (mg/dL) 156 H Plasma Lactic Acid Severino Calcium 8.5 L Magnesium Total Bilirubin 1.8 H AST 37 H ALT Alkaline Phosphatase 39 L Total Protein 6.0 L Triglycerides 159.0 H HDL Cholesterol 69.0 H 12/24/20 12/24/20 06:47 11:51 WBC RBC Hct MCV MCH Plt Count Neutrophils # Chloride BUN BUN/Creatinine Ratio Glucose POC Glucose (mg/dL) 136 H 244 H Plasma Lactic Acid Severino Calcium Magnesium Total Bilirubin AST ALT Alkaline Phosphatase Total Protein Triglycerides HDL Cholesterol - Diagnostic Findings Chest x-ray: image reviewed Assessment and Plan Plan: 1 acute severe COPD exacerbation with secondary shortness of breath 2 chronic smoker 3 dyspnea secondary to above 4 alcoholism with signs of early delirium tremens currently inactive in stable 5 hypertension 6 diabetes mellitus 7 CVA, history of with some right vision impairment 8 diabetes mellitus 9 hypertension 10 seizure disorder 11 skin cancer, resected, squamous cell carcinoma of the forearm Plan We'll put the patient IV Solu Medrol 60 mg every 6 hours DuoNeb about treatments around the clock Smoking cessation Monitor mental status and watch for any signs of delirium tremens Agree on the rest of the medication will continue to follow.
[2020-12-24] MEDS: methylPREDNISolone SOD SUCCI 125 MG/2 ML VIAL IV SCH ×3 (13:57→23:30)
[2020-12-24 14:31] LABS: Hemoglobin A1C 5.6 % (4.0-6.0)
[2020-12-24] MEDS: IPRATROPIUM-ALBUTEROL 3 ML NEB INHALATION SCH ×2 (15:17→19:09)
[2020-12-24 17:08] LABS: Glucose,Whole Blood 358 mg/dL (75-99)
--- NOTE | 2020-12-24 17:23 | P.PN ---
Subjective Progress Note Date: 12/24/20 Principal diagnosis: Acute COPD exacerbation. Alcohol intoxication Ms. Howell is a 60-year-old female with a past medical history of diabetes mellitus, hypertension, alcohol use disorder,? Congestive heart failure coming to the hospital with a chief complaint of difficulty in breathing and alcohol withdrawal. Patient states that she has been dealing with seasonal allergies for the past couple of weeks and eventually started to have difficulty in breathing. Patient also has significant history of smoking 10 cigarettes per day for many years. She also states that she has been drinking excessively beer and whiskey for the past week. Her last drink was yesterday. Patient states that she has difficulty in breathing, with mild cough that is nonproductive in nature. She denies having any fevers chills or rigors. She denies having any chest pain or palpitations. No sick contacts. Patient denies having any dizziness lightheadedness or loss of consciousness. She denies having any lower extremity swelling, no recent travel. In the ER, vitals at the time of admission temperature 98.3, heart rate 101, respiratory 20, blood pressure 1 41 x 79, saturating at 97% on room air. She had blood work done showing a white count of 4.9, hemoglobin 13.9, platelets 167. Sodium 137, potassium 3.5, chloride 96, bicarbonate 27, BUN 5, creatinine 0.53. PT 11.2, INR 1.1. AST 59, AST 41, alkaline phosphatase 39, troponins less than 0.0122. Lactic acid 3.0. Serum alcohol level 200. Mensah virus PCR negative. Chest x-ray showing no active daily cardiopulmonary disease. EKG done showing normal sinus rhythm with left axis deviation. On 12/24/2020- patient is seen and examined at the bedside. She states that she still continues to have tremors. Her difficulty in breathing is slowly improving. She also complains of her voice being hoarse for the past couple of weeks. Patient denies having any chest pain or palpitations. She denies having any abdominal pain nausea vomiting or diarrhea. No dysuria or hematuria. She denies having any fevers chills or rigors. On reviewing her vitals temperature 98.4, heart rate 87, respiratory 16, blood pressure 120/74, saturating at 96% on room air. On reviewing the labs white count of 2.6, hemoglobin 12.3, platelets 109. Sodium 135, potassium 3.5, chloride 99, bicarbonate 30, BUN 5, creatinine 0.6. Lactic acid down to 1.8. Patient's medications reviewed-3 PM, Catapres, doxycycline, Lovenox, folic acid, gabapentin, dressing, Motrin, NovoLog, Ativan, Solu-Medrol 60 mg IV every 6 hours, metoprolol, Zofran, Protonix, thiamine, multivitamin supplements. Objective - Vital Signs Vital signs: Vital Signs Temp 97.9 F 12/24/20 07:00 Pulse 86 12/24/20 11:35 Resp 16 12/24/20 07:00 BP 190/107 12/24/20 07:00 Pulse Ox 92 L 12/24/20 07:00 Intake & Output 12/23/20 12/24/20 12/24/20 18:59 06:59 18:59 Other: Voiding Method Bedside Commode # Voids 3 2 # Bowel Movements 0 - Exam GENERAL: The patient is alert and oriented x3, not in any acute distress. HEENT: Pupils are round and equally reacting to light. EOMI. No scleral icterus. no conjunctival pallor. CARDIOVASCULAR: S1 and S2 present. No murmurs, rubs, or gallops. Tachycardia PULMONARY: Bilateral coarse breath sounds. Prolonged expiration. ABDOMEN: Soft, nontender, nondistended, normoactive bowel sounds. No palpable organomegaly. MUSCULOSKELETAL: No joint swelling or deformity. EXTREMITIES: No cyanosis, clubbing, or pedal edema. NEUROLOGICAL: Gross neurological examination did not reveal any focal deficits. Positive for tremors - Labs CBC & Chem 7: 12/24/20 05:53 12/24/20 05:53 Labs: Abnormal Lab Results - Last 24 Hours (Table) 12/23/20 12/23/20 12/23/20 Range/Units 13:47 17:08 17:21 WBC (4.50-10.00) X 10*3/uL RBC (4.10-5.20) X 10*6/uL Hct (37.2-46.3) % MCV (80.0-97.0) fL MCH (27.0-32.0) pg Plt Count (140-440) X 10*3/uL Neutrophils # (1.80-7.70) X 10*3/uL BUN (9.0-27.0) mg/dL BUN/Creatinine Ratio (12.00-20.00) Ratio Glucose (70-110) mg/dL POC Glucose (mg/dL) 141 H (75-99) mg/dL Plasma Lactic Acid Severino 4.1 H* 2.2 H* (0.7-2.0) mmol/L Calcium (8.7-10.3) mg/dL Total Bilirubin (0.2-1.2) mg/dL AST (13-35) U/L Alkaline Phosphatase (41-126) U/L Total Protein (6.2-8.2) g/dL Triglycerides (0.0-149.0) mg/dL HDL Cholesterol (40.0-60.0) mg/dL 12/23/20 12/23/20 12/24/20 Range/Units 20:03 20:26 05:53 WBC (4.50-10.00) X 10*3/uL RBC (4.10-5.20) X 10*6/uL Hct (37.2-46.3) % MCV (80.0-97.0) fL MCH (27.0-32.0) pg Plt Count (140-440) X 10*3/uL Neutrophils # (1.80-7.70) X 10*3/uL BUN 5.0 L (9.0-27.0) mg/dL BUN/Creatinine Ratio 8.33 L (12.00-20.00) Ratio Glucose 111 H (70-110) mg/dL POC Glucose (mg/dL) 156 H (75-99) mg/dL Plasma Lactic Acid Severino 2.8 H* (0.7-2.0) mmol/L Calcium 8.5 L (8.7-10.3) mg/dL Total Bilirubin 1.8 H (0.2-1.2) mg/dL AST 37 H (13-35) U/L Alkaline Phosphatase 39 L (41-126) U/L Total Protein 6.0 L (6.2-8.2) g/dL Triglycerides 159.0 H (0.0-149.0) mg/dL HDL Cholesterol 69.0 H (40.0-60.0) mg/dL 06/14/21 06/14/21 06/14/21 Range/Units 05:53 06:47 11:51 WBC 2.61 L (4.50-10.00) X 10*3/uL RBC 3.69 L (4.10-5.20) X 10*6/uL Hct 36.6 L (37.2-46.3) % MCV 99.2 H (80.0-97.0) fL MCH 33.3 H (27.0-32.0) pg Plt Count 109 L (140-440) X 10*3/uL Neutrophils # 1.11 L (1.80-7.70) X 10*3/uL BUN (9.0-27.0) mg/dL BUN/Creatinine Ratio (12.00-20.00) Ratio Glucose (70-110) mg/dL POC Glucose (mg/dL) 136 H 244 H (75-99) mg/dL Plasma Lactic Acid Severino (0.7-2.0) mmol/L Calcium (8.7-10.3) mg/dL Total Bilirubin (0.2-1.2) mg/dL AST (13-35) U/L Alkaline Phosphatase (41-126) U/L Total Protein (6.2-8.2) g/dL Triglycerides (0.0-149.0) mg/dL HDL Cholesterol (40.0-60.0) mg/dL Assessment and Plan Assessment: ASSESSMENT Shortness of breath - multifactorial COPD,? CHF exacerbation Alcohol intoxication Lactic acidosis Transaminitis - alcohol related Hypomagnesemia Alcohol abuse disorder Diabetes mellitus Hypertension History of ME Osteoarthritis Seizure disorder History of squamous cell cancer of the left forearm Concussion injury from falling 2011 Chronic low back pain Obesity with BMI of 34 Plan: Patient is started on breathing treatments with DuoNeb and IV Solu-Medrol. Continue to monitor for alcohol withdrawal symptoms- CIWA protocol. Continue with IV fluids at 1 25 mL/h due to lactic acidosis. Continue with thiamine and folic acid supplements. 2-D echocardiogram showing ejection fraction of 55- 60% with mild concentric left ventricular hypertrophy. GI DVT prophylaxis. Will repeat a.m. labs. Further recommendations to follow depending on the progress of the patient.
[2020-12-24 19:27] LABS: Glucose,Whole Blood 369 mg/dL (75-99)
[2020-12-24] MEDS: DOXYCYCLINE 100 MG CAP PO SCH (23:31)
[2020-12-25 00:44] LABS: Glucose,Whole Blood 369 mg/dL (75-99)
[2020-12-25] MEDS: hydrALAZINE HCL 20 MG/ML 1 ML VIAL IVP PRN (02:05)
[2020-12-25] MEDS: SODIUM CHLORIDE 0.9% 1,000 ML IV SCH ×4 (02:11→20:03)
[2020-12-25] MEDS: methylPREDNISolone SOD SUCCI 125 MG/2 ML VIAL IV SCH ×4 (06:10→22:28)
[2020-12-25] MEDS: IPRATROPIUM-ALBUTEROL 3 ML NEB INHALATION SCH ×3 (07:45→16:40)
[2020-12-25 07:46] LABS: Glucose,Whole Blood 321 mg/dL (75-99)
[2020-12-25] MEDS: DOXYCYCLINE 100 MG CAP PO SCH ×2 (08:22→20:01)
[2020-12-25] MEDS: ENOXAPARIN 40 MG/0.4 ML SYRINGE SQ SCH (08:22)
[2020-12-25] MEDS: cloNIDine HCL 0.1 MG TAB PO SCH ×3 (08:22→20:02)
[2020-12-25] MEDS: GABAPENTIN 300 MG CAP PO SCH ×3 (08:23→20:01)
[2020-12-25] MEDS: FOLIC ACID 1 MG TAB PO SCH (08:23)
[2020-12-25] MEDS: PANTOPRAZOLE 40 MG TABLET PO SCH (08:23)
[2020-12-25] MEDS: METOPROLOL SUCCINATE (ER) 25 MG TAB.ER.24H PO SCH (08:23)
[2020-12-25] MEDS: lisinopriL 10 MG TAB PO SCH ×2 (08:23→20:02)
[2020-12-25] MEDS: INSULIN ASPART (NovoLOG) 100 UNIT/ML VIAL SQ SCH ×4 (08:23→21:29)
[2020-12-25] MEDS: THIAMINE 100 MG TAB PO SCH ×2 (08:23→18:06)
[2020-12-25] MEDS: chlordiazePOXIDE 25 MG CAP PO SCH ×4 (08:23→20:02)
--- NOTE | 2020-12-25 08:32 | XR ---
EXAMINATION TYPE: XR chest 1V portable DATE OF EXAM: 12/25/2020 COMPARISON: 12/22/2020 HISTORY: Shortness of breath TECHNIQUE: Single frontal view of the chest is obtained. FINDINGS: Heart is enlarged. No sizable pleural effusion. Interstitium is mildly prominent. No focal consolidation atherosclerotic change aorta. No pneumothorax. IMPRESSION: 1. Cardiomegaly correlate for mild central congestion
[2020-12-25] MEDS ORDERED: amLODIPine 10 MG TAB PO SCH (09:00)
--- NOTE | 2020-12-25 10:08 | P.PN ---
Subjective Progress Note Date: 12/25/20 HISTORY OF PRESENT ILLNESS: This is a 68-year-old female patient with a past medical history significant for diabetes and hypertension and excessive alcohol use and also history of "congestive heart failure" presented to the emergency department with shortness of breath. When the patient was seen this morning she was quite agitated and she is going through alcohol withdrawal. She stated that she drinks excessively yesterday. She took at least 4 large bottles of beers. Clearly she is going through withdrawal right now. We consulted to see the patient mainly because of shortness of breath. The patient describes shortness of breath which is chronic and unchanged compared to before. Currently she denies any symptoms of chest pain or chest discomfort. No syncope or presyncope. No feeling of dizziness or lightheadedness. She is feeling her heart is fast and clearly she is in sinus tachycardia related likely to alcohol withdrawal. No history of coronary artery disease. She underwent a stress test in 2019 and that came in to be unremarkable for ischemia and echo also in 2019 showing normal left ventricular systolic function without significant valvular abnormalities. On examination today she does have a very minimal crackles in both lung lara but she does not look in any overt congestive heart failure. No lower extremities edema noted. The chest x-ray showed no acute abnormalities. The NT proBNP came in to be low but the patient is obese. The blood pressure is elevated which could be also related to alcohol withdrawal. 12/24/2020 Patient examined this morning at the bedside. Patient reports shortness of breath but states she recently got a nebulizer treatment which has helped. Patient has currently going through alcohol withdrawal. She has visible tremors of her extremities. She is on CIWA protocol. Blood pressure this morning is elevated with a reading of 190/107 12/25/2020 Patient examined this morning at the bedside. She continues to have tremors. She denies chest pain or pressure. Denies shortness of breath. BP 178/84. Echocardiogram completed reveals ejection fraction 55-60%, mild mitral regurgitation, and mild tricuspid regurgitation. PHYSICAL EXAM: VITAL SIGNS: Reviewed. GENERAL: Well-developed in no acute distress. NECK: Supple. No JVD or thyromegaly LUNGS: Respirations even and unlabored. Lungs diminished bilaterally. HEART: Regular rate and rhythm. S1 and S2 heard. EXTREMITIES: Normal range of motion. No clubbing or cyanosis. Peripheral pulses intact. No lower extremity edema. Patient with visible tremor of extremities. ASSESSMENT: Shortness of breath Sinus tachycardia, resolved ETOH withdrawal Hypertension Diabetes mellitus Nicotine dependence, 1/2 PPD PLAN: Discussed case with Vinod Velásquez [employer]PER[employer] with internal medicine who states he will manage patients blood pressure regimen No further inpatient workup from a cardiac standpoint We will sign off. Please reconsult if needed Nurse practitioner note has been reviewed by physician. Signing provider agrees with the documented findings, assessment, and plan of care. Objective - Vital Signs Vital signs: Vital Signs Temp 97.7 F 12/25/20 07:00 Pulse 100 12/25/20 08:00 Resp 20 12/25/20 08:00 BP 178/84 12/25/20 07:00 Pulse Ox 95 12/25/20 07:00 Intake & Output 12/24/20 12/25/20 12/25/20 18:59 06:59 18:59 Other: Voiding Method Bedside Commode Bedside Commode Bedside Commode # Voids 1 3 # Bowel Movements 0 - Labs CBC & Chem 7: 12/24/20 05:53 12/24/20 05:53 Labs: Abnormal Lab Results - Last 24 Hours (Table) 12/24/20 12/24/20 12/24/20 Range/Units 11:51 17:07 19:26 POC Glucose (mg/dL) 244 H 358 H 369 H (75-99) mg/dL 12/25/20 12/25/20 Range/Units 00:42 07:44 POC Glucose (mg/dL) 369 H 321 H (75-99) mg/dL Microbiology - Last 24 Hours (Table) 12/23/20 16:52 Blood Culture - Preliminary Blood No Growth after 24 hours
[2020-12-25] MEDS: IBUPROFEN 800 MG TAB PO PRN ×2 (10:30→20:18)
[2020-12-25 10:32] LABS: Basophils # (A) 0.01 X 10*3/uL (0.00-0.10); Basophils % (A) 0.4 %; Eosinophils # (A) 0 X 10*3/uL (0.04-0.35); Eosinophils % (A) 0 %; HCT 36.7 % (37.2-46.3); HGB 12.6 g/dL (12.0-15.0); Lymphocytes # (A) 0.33 X 10*3/uL (0.90-5.00); Lymphocytes % (A) 14.1 %; MCH 33.2 pg (27.0-32.0); MCHC 34.3 g/dL (32.0-37.0); MCV 96.8 fL (80.0-97.0); Mean Platelet Volume 10.5 fL (9.5-12.2); Monocytes # (A) 0.04 X 10*3/uL (0.20-1.00); Monocytes % (A) 1.7 %; Neutrophils # (A) 1.93 X 10*3/uL (1.80-7.70); Neutrophils % (A) 82.5 %; Platelet Count 107 X 10*3/uL (140-440); RBC 3.79 X 10*6/uL (4.10-5.20); RDW 12.2 % (11.5-14.5); WBC 2.34 X 10*3/uL (4.50-10.00)
--- NOTE | 2020-12-25 11:18 | CDI ---
Documentation Clarification Form Date: 12/25/2020 11:05:56 AM From: Maricruz Washington RN, CCDS Admit Date: 12/24/2020 11:16:00 AM Patient Name: Anupama Howell Visit Number: [id number] ATTENTION: The Clinical Documentation Specialists (CDI) and [facility] Coding Staff appreciate your assistance in clarifying documentation. Please respond to the clarification below the line at the bottom and electronically sign. The CDI & [facility] Coding staff will review the response and follow-up if needed. Please note: Queries are made part of the Legal Health Record. If you have any questions, please contact the author of this message via ITS. Dr. Velásquez Your patient has the documented diagnosis of unspecified CHF in H&P and progress Notes. Additional information regarding the type & acuity of CHF is requested as Cardiology is making no documentation of CHF. History/Risk Factors: CA, CHF, CVA, DM, HTN, [place], OA, LE neuropathy Clinical Indicators: 12/22 2151 VS/Pulse OX: Temp 98.3, HR 101, HR 20, B/P 141/79, spo2 97% RA BNP: 75 12/24 Echocardiogram Results: EF 55-60% 12/25 Chest X Ray:"1.Cardiomegaly correlate for mild central congestion." 12/23-12/24 H&P & Progress Notes: CHF exacerbation, ETOH intoxication." Treatment: Catapress 1 mg TID Zestril 10 mg PO BID In your professional opinion, can you please clarify the acuity and type of CHF if known? [ ] Chronic Diastolic Heart Failure (preserved EF) [ ] Chronic Systolic & Diastolic Heart Failure [ ] Other, please specify [ ] Unable to determine (Template Last Revised: August 2020) MTDD
[2020-12-25 11:24] LABS: African American GFR (CKD) 92.9 (60.0-200.0); Albumin 4.3 g/dL (3.80-4.90); Albumin/Globulin Ratio 1.65 (1.60-3.17); Anion Gap 12.5 mmol/L (4.00-12.00); BUN/Creat Ratio 11.25 Ratio (12.00-20.00); Calcium 9.2 mg/dL (8.7-10.3); Carbon Dioxide 24.5 mmol/L (21.6-31.8); Globulin 2.6 g/dL (1.6-3.3); Magnesium 1.4 mg/dL (1.5-2.4); Non-African American GFR(CKD) 80.1 (60.0-200.0); Potassium 3.6 mmol/L (3.5-5.5); Total Bilirubin 1.2 mg/dL (0.3-1.2); Total Protein 6.9 g/dL (6.2-8.2)
[2020-12-25] MEDS ORDERED: Magnesium Replacement Protocol 1 EACH MISC MISCELLANE PRN (11:39)
[2020-12-25 12:23] LABS: Glucose,Whole Blood 312 mg/dL (75-99)
[2020-12-25] MEDS: MAGNESIUM SULFATE-D5W PMX 1 GM in DEXTROSE/WATER 1 100ML.BAG IVPB SCH ×3 (12:29→15:44)
--- NOTE | 2020-12-25 13:34 | P.PN ---
Subjective Progress Note Date: 12/25/20 Principal diagnosis: Coughing wheezing This is a 60-year-old female patient, who came into the hospital because of worsening shortness of breath. She was progressively getting worse over the past 6 weeks. She is alcoholic. She drinks beer and whiskey. She also smokes one pack of cigarettes a day. Denies having any previous history of pulmonary disease or disorder. No history of asthma. She lives in her house. She has 15 cancer within her house and she has several kittens by been probably defecating and urinating within the home environment.. The patient admits that she is not been living in a clean environment. She comes in to the hospital because of worsening shortness of breath. She was also having some signs of alcohol withdrawal and delirium tremens. Today she is feeling better. She is less short of breath. Her voice is hoarse. She has a congested cough. Unable to bring up much sputum. She still has exertional dyspnea. No nausea. No vomiting. No diarrhea. No chest pain. No hemoptysis. No pleurisy or the patient has other comorbidities including previous history of CVA which has resulted in to some vision changes in her right eye, diabetes mellitus and CAD and previous history of seizure disorder. She is afebrile for now and she is hemodynamically stable. Blood work from the emergency showed a white cell count a white count with hemoglobin 13.9. The serum bicarb was 27 with a sodium level of 137. Glucose 113. Coagulation profile was normal. Serum alcohol was 200 the time of admission. Lactic acid level was at 3.0. Troponin was negative at 0.012 and the proBNP level was 75. COVID-19 testing was negative and the patien t is fully vaccinated. On 12/25/2020 patient seen in follow-up on medical surgical floor. She is awake and alert, oriented 3, denies any acute distress, room air pulse ox is 95%, she states she is breathing comfortably, less wheezy and less congested, lung sounds today reveal some scattered rales, no significant wheezing noted. Patient has been afebrile, she continues on IV steroids, breathing treatments and antibiotics. She continues on CIWA protocol, CIWA scale was 6-7, she states she has a weak, little shaky on her feet. But no complaints of headaches marginal or visual hallucinations, she is pleasant, and cooperative. Objective - Vital Signs Vital signs: Vital Signs Temp 97.7 F 12/25/20 07:00 Pulse 92 12/25/20 11:29 Resp 20 12/25/20 08:00 BP 163/81 12/25/20 12:08 Pulse Ox 95 12/25/20 07:00 Intake & Output 12/24/20 12/25/20 12/25/20 18:59 06:59 18:59 Other: Voiding Method Bedside Commode Bedside Commode Bedside Commode # Voids 1 3 # Bowel Movements 0 - Exam GENERAL EXAM: Alert, very pleasant 60-year-old white female, on room air, with a pulse ox of 94-95% comfortable in no apparent distress. HEAD: Normocephalic/atraumatic. EYES: Normal reaction of pupils, equal size. Conjunctiva pink, sclera white. NOSE: Clear with pink turbinates. THROAT: No erythema or exudates. NECK: No masses, no JVD, no thyroid enlargement, no adenopathy. CHEST: No chest wall deformity. Symmetrical expansion. LUNGS: Equal air entry with bilateral crackles, no significant wheezing CVS: Regular rate and rhythm, normal S1 and S2, no gallops, no murmurs, no rubs ABDOMEN: Soft, nontender. No hepatosplenomegaly, normal bowel sounds, no gua rding or rigidity. EXTREMITIES: No clubbing, no edema, no cyanosis, 2+ pulses and upper and lower extremities. MUSCULOSKELETAL: Muscle strength and tone normal. SPINE: No scoliosis or deformity SKIN: No rashes CENTRAL NERVOUS SYSTEM: Alert and oriented -3. No focal deficits, tone is normal in all 4 extremities. PSYCHIATRIC: Alert and oriented -3. Appropriate affect. Intact judgment and insight. - Labs CBC & Chem 7: 12/25/20 04:31 12/25/20 04:31 Labs: Abnormal Lab Results - Last 24 Hours (Table) 12/24/20 12/24/20 12/25/20 Range/Units 17:07 19:26 00:42 WBC (4.50-10.00) X 10*3/uL RBC (4.10-5.20) X 10*6/uL Hct (37.2-46.3) % MCH (27.0-32.0) pg Plt Count (140-440) X 10*3/uL Lymphocytes # (0.90-5.00) X 10*3/uL Monocytes # (0.20-1.00) X 10*3/uL Eosinophils # (0.04-0.35) X 10*3/uL Anion Gap (4.00-12.00) mmol/L BUN/Creatinine Ratio (12.00-20.00) Ratio Glucose (70-110) mg/dL POC Glucose (mg/dL) 358 H 369 H 369 H (75-99) mg/dL Magnesium (1.5-2.4) mg/dL AST (13-35) U/L Alkaline Phosphatase (41-126) U/L 12/25/20 12/25/20 12/25/20 Range/Units 04:31 04:31 07:44 WBC 2.34 L (4.50-10.00) X 10*3/uL RBC 3.79 L (4.10-5.20) X 10*6/uL Hct 36.7 L (37.2-46.3) % MCH 33.2 H (27.0-32.0) pg Plt Count 107 L (140-440) X 10*3/uL Lymphocytes # 0.33 L (0.90-5.00) X 10*3/uL Monocytes # 0.04 L (0.20-1.00) X 10*3/uL Eosinophils # 0 L (0.04-0.35) X 10*3/uL Anion Gap 12.50 H (4.00-12.00) mmol/L BUN/Creatinine Ratio 11.25 L (12.00-20.00) Ratio Glucose 316 H (70-110) mg/dL POC Glucose (mg/dL) 321 H (75-99) mg/dL Magnesium 1.4 L (1.5-2.4) mg/dL AST 38 H (13-35) U/L Alkaline Phosphatase 39 L (41-126) U/L 12/25/20 Range/Units 12:22 WBC (4.50-10.00) X 10*3/uL RBC (4.10-5.20) X 10*6/uL Hct (37.2-46.3) % MCH (27.0-32.0) pg Plt Count (140-440) X 10*3/uL Lymphocytes # (0.90-5.00) X 10*3/uL Monocytes # (0.20-1.00) X 10*3/uL Eosinophils # (0.04-0.35) X 10*3/uL Anion Gap (4.00-12.00) mmol/L BUN/Creatinine Ratio (12.00-20.00) Ratio Glucose (70-110) mg/dL POC Glucose (mg/dL) 312 H (75-99) mg/dL Magnesium (1.5-2.4) mg/dL AST (13-35) U/L Alkaline Phosphatase (41-126) U/L Microbiology - Last 24 Hours (Table) 12/23/20 16:52 Blood Culture - Preliminary Blood No Growth after 24 hours Assessment and Plan Plan: Assessment: #1. Acute exacerbation of COPD with secondary shortness of breath #2. Chronic smoker #3. History of alcoholism with signs of early delirium tremens currently stable, with a CIWA scale of 6 and 7 #4. Hypertension #5. Diabetes type 2 #6. History of CVA with some right vision impairment #7. Diabetes mellitus #8. Seizure disorder #9. History of skin cancer, with resection, squamous cell carcinoma Plan: Continue current medical treatment, continue Solu-Medrol and nebulized bronchodilators and antibiotics. Patient is improving Less bronchospastic and she is breathing easier. May benefit from physical the rapy evaluation related to general weakness, she is only able to ambulate a few feet in the room Continue CIWA scale We'll continue to monitor I performed a history & physical examination of the patient and discussed their management with my nurse practitioner, Maria Del Carmen Jc. I reviewed the nurse practitioner's note and agree with the documented findings and plan of care. Lung sounds are positive for bibasilar crackles. The findings and the impression was discussed with the patient. I attest to the documentation by the nurse practitioner. Time with Patient: Less than 30
[2020-12-25 17:45] LABS: Glucose,Whole Blood 335 mg/dL (75-99)
--- NOTE | 2020-12-25 18:23 | P.PN ---
Subjective Progress Note Date: 12/25/20 Principal diagnosis: Acute COPD exacerbation Alcohol intoxication 60-year-old female with past medical history of COPD. diabetes mellitus, hypertension, alcohol abuse, congestive heart failure unspecified was admitted to the hospital with difficulty in breathing and alcohol withdrawal. Patient has lengthy history of noncompliance with medical treatment plan and dependence with alcohol and nicotine. Patient continues to be on alcohol withdrawal protocol, followed by pulmonary critical care for COPD, followed by cardiology for hypertension and unspecified congestive heart failure. 12/25/2020 Patient is seen and examined at bedside area did she continues to have mild tremors and episodes of incontinence, and frequent forgetfulness of situation and place. Her respiratory rate is within normal range, patient continues to complain of shortness of breath and tremors and generalized fatigue. Patient denies fever, chest pain or palpitations at this time. Patient continues to receive IV steroids for COPD exacerbation and alcohol withdrawal protocol for alcohol abuse in the past. Throughout hospital stay patient has had elevated blood pressures, will start lisinopril 10 mg twice a day. Patient is poor historian for subjective data Objective - Vital Signs Vital signs: Vital Signs Temp 98.6 F 12/25/20 15:00 Pulse 95 12/25/20 16:49 Resp 20 12/25/20 15:00 BP 171/90 12/25/20 15:00 Pulse Ox 94 L 12/25/20 15:00 Intake & Output 12/24/20 12/25/20 12/25/20 18:59 06:59 18:59 Other: Voiding Method Bedside Commode Bedside Commode Bedside Commode # Voids 1 3 3 # Bowel Movements 0 - Constitutional General appearance: Present: mild distress - EENT Eyes: Present: EOMI, PERRLA ENT: Present: hard of hearing Ears: bilateral: normal - Neck Neck: Present: normal ROM Carotids: bilateral: upstroke normal Thyroid: bilateral: normal size - Respiratory Respiratory: bilateral: other (Course lung sounds anterior and posterior) - Cardiovascular Details: Normal sinus rhythm to sinus tachycardia with no acute changes Heart rate: 74 Rhythm: regular Heart sounds: normal: S1, S2 - Peripheral pulses radial pulse Peripheral Pulses: bilateral: Normal dorsalis pedis Peripheral Pulses: bilateral: Normal - Gastrointestinal General gastrointestinal: Present: normal bowel sounds - Integumentary Integumentary: Present: pale - Neurologic Neurologic: Present: CNII-XII intact - Musculoskeletal Musculoskeletal: Present: generalized weakness - Psychiatric Psychiatric: Present: A&O x's 3 - Allied health notes Allied health notes reviewed: nursing - Labs CBC & Chem 7: 12/25/20 04:31 12/25/20 04:31 Labs: Abnormal Lab Results - Last 24 Hours (Table) 12/24/20 12/25/20 12/25/20 Range/Units 19:26 00:42 04:31 WBC 2.34 L (4.50-10.00) X 10*3/uL RBC 3.79 L (4.10-5.20) X 10*6/uL Hct 36.7 L (37.2-46.3) % MCH 33.2 H (27.0-32.0) pg Plt Count 107 L (140-440) X 10*3/uL Lymphocytes # 0.33 L (0.90-5.00) X 10*3/uL Monocytes # 0.04 L (0.20-1.00) X 10*3/uL Eosinophils # 0 L (0.04-0.35) X 10*3/uL Anion Gap (4.00-12.00) mmol/L BUN/Creatinine Ratio (12.00-20.00) Ratio Glucose (70-110) mg/dL POC Glucose (mg/dL) 369 H 369 H (75-99) mg/dL Magnesium (1.5-2.4) mg/dL AST (13-35) U/L Alkaline Phosphatase (41-126) U/L 12/25/20 12/25/20 12/25/20 Range/Units 04:31 07:44 12:22 WBC (4.50-10.00) X 10*3/uL RBC (4.10-5.20) X 10*6/uL Hct (37.2-46.3) % MCH (27.0-32.0) pg Plt Count (140-440) X 10*3/uL Lymphocytes # (0.90-5.00) X 10*3/uL Monocytes # (0.20-1.00) X 10*3/uL Eosinophils # (0.04-0.35) X 10*3/uL Anion Gap 12.50 H (4.00-12.00) mmol/L BUN/Creatinine Ratio 11.25 L (12.00-20.00) Ratio Glucose 316 H (70-110) mg/dL POC Glucose (mg/dL) 321 H 312 H (75-99) mg/dL Magnesium 1.4 L (1.5-2.4) mg/dL AST 38 H (13-35) U/L Alkaline Phosphatase 39 L (41-126) U/L 12/25/20 Range/Units 17:43 WBC (4.50-10.00) X 10*3/uL RBC (4.10-5.20) X 10*6/uL Hct (37.2-46.3) % MCH (27.0-32.0) pg Plt Count (140-440) X 10*3/uL Lymphocytes # (0.90-5.00) X 10*3/uL Monocytes # (0.20-1.00) X 10*3/uL Eosinophils # (0.04-0.35) X 10*3/uL Anion Gap (4.00-12.00) mmol/L BUN/Creatinine Ratio (12.00-20.00) Ratio Glucose (70-110) mg/dL POC Glucose (mg/dL) 335 H (75-99) mg/dL Magnesium (1.5-2.4) mg/dL AST (13-35) U/L Alkaline Phosphatase (41-126) U/L Microbiology - Last 24 Hours (Table) 12/23/20 16:52 Blood Culture - Preliminary Blood No Growth after 24 hours - Imaging and Cardiology Chest x-ray: report reviewed Assessment and Plan Assessment: COPD exacerbation Alcohol intoxication Lactic acidosis Transaminitis-possibly alcohol related Low magnesium Alcohol abuse disorder Diabetes mellitus type 2 [id number] Hypertension History of myocardial infarction Osteoarthritis Seizure disorder History of squamous cell cancer of left forearm Chronic back pain Full code Plan: COPD exacerbation, continue [id number] breathing treatments continue IV steroids, continue consultation with pulmonary critical care for recommendations and treatment plan Alcoholism intoxication, continue alcohol withdrawal protocol Low magnesium continue magnesium replacement protocol Hypertensive episodes adding ODIN inhibitor lisinopril 10 mg by mouth twice a day Diabetes mellitus type 2, continue sliding scale Continue to monitor diagnostics and vital signs Continue medical management Further recommendations to come based on patient's clinical condition Time with Patient: Greater than 30
[2020-12-25 21:06] LABS: Glucose,Whole Blood 329 mg/dL (75-99)
[2020-12-25] MEDS ORDERED: INSULIN REGULAR 100 UNIT/ML VIAL SQ ONE (21:32)
[2020-12-26 00:38] LABS: Glucose,Whole Blood 316 mg/dL (75-99)
[2020-12-26] MEDS: methylPREDNISolone SOD SUCCI 125 MG/2 ML VIAL IV SCH (05:22)
[2020-12-26] MEDS: IPRATROPIUM-ALBUTEROL 3 ML NEB INHALATION SCH ×5 (07:05→21:06)
[2020-12-26 07:24] LABS: Glucose,Whole Blood 321 mg/dL (75-99)
[2020-12-26] MEDS: INSULIN ASPART (NovoLOG) 100 UNIT/ML VIAL SQ SCH ×4 (07:48→21:18)
[2020-12-26] MEDS: PANTOPRAZOLE 40 MG TABLET PO SCH (07:49)
[2020-12-26] MEDS: SODIUM CHLORIDE 0.9% 1,000 ML IV SCH ×2 (07:50→21:18)
[2020-12-26] MEDS: THIAMINE 100 MG TAB PO SCH ×2 (07:50→17:59)
[2020-12-26] MEDS: LORazepam 2 MG/ML INJ IV PRN ×3 (08:00→23:20)
[2020-12-26] MEDS: hydrALAZINE HCL 20 MG/ML 1 ML VIAL IVP PRN (08:09)
[2020-12-26] MEDS: cloNIDine HCL 0.1 MG TAB PO SCH ×3 (08:10→21:19)
[2020-12-26] MEDS: lisinopriL 10 MG TAB PO SCH ×2 (08:10→21:18)
[2020-12-26] MEDS: METOPROLOL SUCCINATE (ER) 25 MG TAB.ER.24H PO SCH (08:10)
[2020-12-26] MEDS: chlordiazePOXIDE 25 MG CAP PO SCH ×4 (08:10→21:19)
[2020-12-26] MEDS: ENOXAPARIN 40 MG/0.4 ML SYRINGE SQ SCH (08:10)
[2020-12-26] MEDS: FOLIC ACID 1 MG TAB PO SCH (08:10)
[2020-12-26] MEDS: GABAPENTIN 300 MG CAP PO SCH ×3 (08:10→21:19)
[2020-12-26] MEDS: DOXYCYCLINE 100 MG CAP PO SCH ×2 (08:11→21:18)
[2020-12-26] MEDS ORDERED: INSULIN DETEMIR (LEVEMIR) 100 UNIT/ML SYR SQ SCH (09:00)
--- NOTE | 2020-12-26 11:33 | P.PN ---
Subjective Progress Note Date: 12/26/20 Principal diagnosis: COPD exacerbation This is a 60-year-old female patient, who came into the hospital because of worsening shortness of breath. She was progressively getting worse over the past 6 weeks. She is alcoholic. She drinks beer and whiskey. She also smokes one pack of cigarettes a day. Denies having any previous history of pulmonary disease or disorder. No history of asthma. She lives in her house. She has 15 cancer within her house and she has several kittens by been probably defecating and urinating within the home environment.. The patient admits that she is not been living in a clean environment. She comes in to the hospital because of worsening shortness of breath. She was also having some signs of alcohol withdrawal and delirium tremens. Today she is feeling better. She is less short of breath. Her voice is hoarse. She has a congested cough. Unable to bring up much sputum. She still has exertional dyspnea. No nausea. No vomiting. No diarrhea. No chest pain. No hemoptysis. No pleurisy or the patient has other comorbidities including previous history of CVA which has resulted in to some vision changes in her right eye, diabetes mellitus and CAD and previous history of seizure disorder. She is afebrile for now and she is hemodynamically stable. Blood work from the emergency showed a white cell count a white count with hemoglobin 13.9. The serum bicarb was 27 with a sodium level of 137. Glucose 113. Coagulation profile was normal. Serum alcohol was 200 the time of admission. Lactic acid level was at 3.0. Troponin was negative at 0.012 and the proBNP level was 75. COVID-19 testing was negative and the patien t is fully vaccinated. On 12/25/2020 patient seen in follow-up on medical surgical floor. She is awake and alert, oriented 3, denies any acute distress, room air pulse ox is 95%, she states she is breathing comfortably, less wheezy and less congested, lung sounds today reveal some scattered rales, no significant wheezing noted. Patient has been afebrile, she continues on IV steroids, breathing treatments and antibiotics. She continues on CIWA protocol, CIWA scale was 6-7, she states she has a weak, little shaky on her feet. But no complaints of headaches marginal or visual hallucinations, she is pleasant, and cooperative. The patient is seen today 12/26/2020 in follow-up on the medical floor. She is currently sitting up in bed. Awake and alert in no acute distress. Maintaining O2 saturations in the mid 90s on room air. Somewhat teary-eyed today. Anxious regarding a diagnosis of COPD. She remains on IV Solu-Medrol, DuoNeb inhalations, empiric antibiotics. She remains in the CIWA protocol. Required Ativan at 8 AM this morning for a score of 13. Blood glucose 321. Objective - Vital Signs Vital signs: Vital Signs Temp 98.3 F 12/26/20 07:00 Pulse 84 12/26/20 07:00 Resp 20 12/26/20 07:00 BP 157/78 12/26/20 08:57 Pulse Ox 95 12/26/20 07:00 Intake & Output 12/25/20 12/26/20 12/26/20 18:59 06:59 18:59 Other: Voiding Method Bedside Commode Bedside Commode Bedside Commode # Voids 3 2 1 - Exam GENERAL EXAM: Alert, anxious, 60-year-old female patient, on room air, comfortable in no apparent distress. HEAD: Normocephalic. EYES: Normal reaction of pupils, equal size. NOSE: Clear with pink turbinates. THROAT: No erythema or exudates. NECK: No masses, no JVD. CHEST: No chest wall deformity. LUNGS: Equal air entry with bilateral end expiratory wheeze, diminished. CVS: S1 and S2 normal with no audible murmur, regular rhythm. ABDOMEN: No hepatosplenomegaly, normal bowel sounds, no guarding or rigidity. SPINE: No scoliosis or deformity SKIN: No rashes CENTRAL NERVOUS SYSTEM: No focal deficits, tone is normal in all 4 extremities. EXTREMITIES: There is no peripheral edema. No clubbing, no cyanosis. Peripheral pulses are intact. - Labs CBC & Chem 7: 12/25/20 04:31 12/25/20 04:31 Labs: Abnormal Lab Results - Last 24 Hours (Table) 12/25/20 12/25/20 12/25/20 Range/Units 04:31 12:22 17:43 Anion Gap 12.50 H (4.00-12.00) mmol/L BUN/Creatinine Ratio 11.25 L (12.00-20.00) Ratio Glucose 316 H (70-110) mg/dL POC Glucose (mg/dL) 312 H 335 H (75-99) mg/dL Magnesium 1.4 L (1.5-2.4) mg/dL AST 38 H (13-35) U/L Alkaline Phosphatase 39 L (41-126) U/L 12/25/20 12/26/20 12/26/20 Range/Units 21:04 00:36 07:23 Anion Gap (4.00-12.00) mmol/L BUN/Creatinine Ratio (12.00-20.00) Ratio Glucose (70-110) mg/dL POC Glucose (mg/dL) 329 H 316 H 321 H (75-99) mg/dL Magnesium (1.5-2.4) mg/dL AST (13-35) U/L Alkaline Phosphatase (41-126) U/L Microbiology - Last 24 Hours (Table) 12/23/20 16:52 Blood Culture - Preliminary Blood No Growth after 48 hours Assessment and Plan Assessment: 1 Acute exacerbation of COPD with secondary shortness of breath 2 Chronic smoker 3 History of alcoholism with signs of early delirium tremens currently stable, with a CIWA scale of 6 and 7 4 Hypertension 5 Diabetes type 2 6 History of CVA with some right vision impairment 7 Diabetes mellitus 8 Seizure disorder 9 History of skin cancer, with resection, squamous cell carcinoma Plan: The patient was seen and evaluated by Dr. Bailey She is quite teary-eyed and anxious this morning Decrease IV Solu-Medrol 40mg every 8 hours Add Symbicort Add NicoDerm patch Educated regarding the importance of complete smoking cessation Remains in the CIWA protocol We will continue to follow I, the cosigning physician, performed a history & physical examination of the patient. Lungs sounds with bilateral end expiratory wheeze, diminished. Maintaining good O2 saturations in the 90s on room air. I discussed the assessment and plan of care with my nurse practitioner, Magui Garza. I attest to the above note as dictated by her.
[2020-12-26 11:52] LABS: Glucose,Whole Blood 352 mg/dL (75-99)
[2020-12-26 12:01] LABS: Basophils # (A) 0.01 X 10*3/uL (0.00-0.10); Basophils % (A) 0.2 %; Eosinophils # (A) 0 X 10*3/uL (0.04-0.35); Eosinophils % (A) 0 %; HCT 37.5 % (37.2-46.3); Lymphocytes # (A) 0.42 X 10*3/uL (0.90-5.00); MCH 33.9 pg (27.0-32.0); MCHC 34.7 g/dL (32.0-37.0); MCV 97.9 fL (80.0-97.0); Mean Platelet Volume 10.1 fL (9.5-12.2); Monocytes # (A) 0.14 X 10*3/uL (0.20-1.00); Monocytes % (A) 2.7 %; Neutrophils # (A) 4.65 X 10*3/uL (1.80-7.70); Neutrophils % (A) 88.3 %; Platelet Count 137 X 10*3/uL (140-440); RBC 3.83 X 10*6/uL (4.10-5.20); RDW 12.7 % (11.5-14.5); WBC 5.26 X 10*3/uL (4.50-10.00)
[2020-12-26] MEDS: NICOTINE 14MG/24HR PATCH TRANSDERM SCH (13:03)
[2020-12-26] MEDS: methylPREDNISolone SOD SUCCI 40 MG/ML 1 ML VIAL IV SCH (15:44)
[2020-12-26 17:08] LABS: Glucose,Whole Blood 274 mg/dL (75-99)
[2020-12-26 17:56] LABS: African American GFR (CKD) 114.8 (60.0-200.0); Albumin 4.5 g/dL (3.80-4.90); Albumin/Globulin Ratio 1.67 (1.60-3.17); Anion Gap 12.8 mmol/L (4.00-12.00); BUN/Creat Ratio 26.67 Ratio (12.00-20.00); Calcium 9.4 mg/dL (8.7-10.3); Carbon Dioxide 22.2 mmol/L (21.6-31.8); Globulin 2.7 g/dL (1.6-3.3); Magnesium 2.2 mg/dL (1.5-2.4); Non-African American GFR(CKD) 99.1 (60.0-200.0); Potassium 3.4 mmol/L (3.5-5.5); Total Bilirubin 1.1 mg/dL (0.3-1.2); Total Protein 7.2 g/dL (6.2-8.2)
[2020-12-26] MEDS: SYMBICORT 160-4.5 MCG INHALER INHALATION SCH (21:06)
[2020-12-26 21:10] LABS: Glucose,Whole Blood 260 mg/dL (75-99)
--- NOTE | 2020-12-26 22:19 | P.PN ---
Subjective Progress Note Date: 12/26/20 Principal diagnosis: Acute COPD exacerbation Alcohol intoxication 60-year-old female with past medical history of COPD. diabetes mellitus, hypertension, alcohol abuse, congestive heart failure unspecified was admitted to the hospital with difficulty in breathing and alcohol withdrawal. Patient has lengthy history of noncompliance with medical treatment plan and dependence with alcohol and nicotine. Patient continues to be on alcohol withdrawal protocol, followed by pulmonary critical care for COPD, followed by cardiology for hypertension and unspecified congestive heart failure. 12/25/2020 Patient is seen and examined at bedside area did she continues to have mild tremors and episodes of incontinence, and frequent forgetfulness of situation and place. Her respiratory rate is within normal range, patient continues to complain of shortness of breath and tremors and generalized fatigue. Patient denies fever, chest pain or palpitations at this time. Patient continues to receive IV steroids for COPD exacerbation and alcohol withdrawal protocol for alcohol abuse in the past. Throughout hospital stay patient has had elevated blood pressures, will start lisinopril 10 mg twice a day. Patient is poor historian for subjective data December 26, 2020 Patient seen and examined at bedside. Patient continues to have episodes of tremors possibly related to alcohol withdrawal. Patient continues to endorse shortness of breath and tremors and generalized fatigue. Patient denies fever, chills chest pain or palpitations at this time. Patient continues to receive IV steroids for COPD exacerbation. Patient continues to be on alcohol withdrawal protocol for alcohol abuse. Additional anti-hypertensives have been added to control blood pressure. Objective - Vital Signs Vital signs: Vital Signs Temp 98.2 F 12/26/20 14:30 Pulse 75 12/26/20 21:19 Resp 17 12/26/20 21:19 BP 145/82 12/26/20 14:30 Pulse Ox 96 12/26/20 14:30 Intake & Output 12/26/20 12/26/20 12/27/20 06:59 18:59 06:59 Intake Total 522 Balance 522 Intake: Oral 522 Other: Voiding Method Bedside Commode Bedside Commode Bedside Commode # Voids 2 1 1 # Bowel Movements 0 - Constitutional General appearance: Present: disheveled - EENT Eyes: Present: EOMI, PERRLA Ears: bilateral: normal - Neck Neck: Present: normal ROM Carotids: bilateral: upstroke normal Thyroid: bilateral: normal size - Respiratory Respiratory: bilateral: diminished (Anterior and posterior lung lara) - Cardiovascular Heart rate: 89 Rhythm: regular Heart sounds: normal: S1, S2 - Peripheral pulses radial pulse Peripheral Pulses: bilateral: Normal dorsalis pedis Peripheral Pulses: bilateral: Normal - Gastrointestinal General gastrointestinal: Present: decreased bowel sounds, normal bowel sounds - Integumentary Integumentary: Present: decreased turgor, pale - Neurologic Neurologic: Present: CNII-XII intact - Musculoskeletal Musculoskeletal: Present: generalized weakness - Psychiatric Psychiatric: Present: A&O x's 3 - Allied health notes Allied health notes reviewed: nursing - Labs CBC & Chem 7: 12/26/20 04:40 12/26/20 04:40 Labs: Abnormal Lab Results - Last 24 Hours (Table) 12/26/20 12/26/20 12/26/20 Range/Units 00:36 04:40 04:40 RBC 3.83 L (4.10-5.20) X 10*6/uL MCV 97.9 H (80.0-97.0) fL MCH 33.9 H (27.0-32.0) pg Plt Count 137 L (140-440) X 10*3/uL Plt Count Comment DECREASED A Lymphocytes # 0.42 L (0.90-5.00) X 10*3/uL Monocytes # 0.14 L (0.20-1.00) X 10*3/uL Eosinophils # 0 L (0.04-0.35) X 10*3/uL Sodium 134 L (135-145) mmol/L Potassium 3.4 L (3.5-5.5) mmol/L Anion Gap 12.80 H (4.00-12.00) mmol/L BUN/Creatinine Ratio 26.67 H (12.00-20.00) Ratio Glucose 297 H (70-110) mg/dL POC Glucose (mg/dL) 316 H (75-99) mg/dL AST 43 H (13-35) U/L ALT 54 H (8-44) U/L Alkaline Phosphatase 39 L (41-126) U/L 12/26/20 12/26/20 12/26/20 Range/Units 07:23 11:50 17:06 RBC (4.10-5.20) X 10*6/uL MCV (80.0-97.0) fL MCH (27.0-32.0) pg Plt Count (140-440) X 10*3/uL Plt Count Comment Lymphocytes # (0.90-5.00) X 10*3/uL Monocytes # (0.20-1.00) X 10*3/uL Eosinophils # (0.04-0.35) X 10*3/uL Sodium (135-145) mmol/L Potassium (3.5-5.5) mmol/L Anion Gap (4.00-12.00) mmol/L BUN/Creatinine Ratio (12.00-20.00) Ratio Glucose (70-110) mg/dL POC Glucose (mg/dL) 321 H 352 H 274 H (75-99) mg/dL AST (13-35) U/L ALT (8-44) U/L Alkaline Phosphatase (41-126) U/L 12/26/20 Range/Units 21:08 RBC (4.10-5.20) X 10*6/uL MCV (80.0-97.0) fL MCH (27.0-32.0) pg Plt Count (140-440) X 10*3/uL Plt Count Comment Lymphocytes # (0.90-5.00) X 10*3/uL Monocytes # (0.20-1.00) X 10*3/uL Eosinophils # (0.04-0.35) X 10*3/uL Sodium (135-145) mmol/L Potassium (3.5-5.5) mmol/L Anion Gap (4.00-12.00) mmol/L BUN/Creatinine Ratio (12.00-20.00) Ratio Glucose (70-110) mg/dL POC Glucose (mg/dL) 260 H (75-99) mg/dL AST (13-35) U/L ALT (8-44) U/L Alkaline Phosphatase (41-126) U/L Microbiology - Last 24 Hours (Table) 12/23/20 16:52 Blood Culture - Preliminary Blood No Growth after 72 hours 12/26/20 12:00 Sputum Culture - Preliminary Sputum Assessment and Plan Assessment: COPD exacerbation Alcohol intoxication Lactic acidosis Transaminitis-possibly alcohol related Low magnesium Alcohol abuse disorder Diabetes mellitus type 2 [id number] Hypertension History of myocardial infarction Osteoarthritis Seizure disorder History of squamous cell cancer of left forearm Chronic back pain Full code Plan: COPD exacerbation, continue [id number] breathing treatments continue IV steroids, continue consultation with pulmonary critical care for recommendations and treatment plan Alcoholism intoxication, continue alcohol withdrawal protocol Low magnesium continue magnesium replacement protocol Hypertensive episodes adding ODIN inhibitor lisinopril 10 mg by mouth twice a day, And additional antihypertensives ordered by cardiology Diabetes mellitus type 2, continue sliding scale, Basal insulin of 10 units in a.m. Continue to monitor diagnostics and vital signs Continue medical management Further recommendations to come based on patient's clinical condition Time with Patient: Greater than 30
[2020-12-27] MEDS: methylPREDNISolone SOD SUCCI 40 MG/ML 1 ML VIAL IV SCH ×4 (00:03→23:56)
[2020-12-27 05:38] LABS: Basophils % (A) 0 %; Eosinophils % (A) 0 %; HCT 37.9 % (34.0-46.0); HGB 13.2 gm/dL (11.4-16.0); Lymphocytes # (A) 0.5 k/uL (1.0-4.8); Lymphocytes % (A) 11 %; MCH 34.1 pg (25.0-35.0); MCHC 34.8 g/dL (31.0-37.0); MCV 98.1 fL (80.0-100.0); Mean Platelet Volume 8.2; Monocytes # (A) 0.1 k/uL (0-1.0); Monocytes % (A) 3 %; Neutrophils # (A) 3.6 k/uL (1.3-7.7); Neutrophils % (A) 85 %; Platelet Count 123 k/uL (150-450); RBC 3.87 m/uL (3.80-5.40); RDW 13.4 % (11.5-15.5); WBC 4.2 k/uL (3.8-10.6)
[2020-12-27 05:51] LABS: ALT 53 U/L (4-34); AST 56 U/L (14-36); African American GFR (CKD) >90 (>60 ml/min/1.73 sqM); Albumin/Globulin Ratio 1.5; Alkaline Phosphatase 40 U/L (38-126); Anion Gap 8 mmol/L; Blood Urea Nitrogen 14 mg/dL (7-17); Calcium 9.3 mg/dL (8.4-10.2); Carbon Dioxide 25 mmol/L (22-30); Chloride 101 mmol/L (98-107); Globulin 2.7 g/dL; Glucose 291 mg/dL (74-99); Non-African American GFR(CKD) >90 (>60 ml/min/1.73 sqM); Potassium 3.4 mmol/L (3.5-5.1); Sodium 134 mmol/L (137-145); Total Bilirubin 0.9 mg/dL (0.2-1.3); Total Protein 6.7 g/dL (6.3-8.2); Uric Acid 2.9 mg/dL (3.7-7.4)
[2020-12-27] MEDS ORDERED: INSULIN DETEMIR (LEVEMIR) 100 UNIT/ML SYR SQ SCH (07:00)
[2020-12-27 07:26] LABS: Glucose,Whole Blood 322 mg/dL (75-99)
[2020-12-27] MEDS ORDERED: POTASSIUM CHLORIDE ER 20 MEQ TAB.ER PO STA (08:08)
[2020-12-27] MEDS: SYMBICORT 160-4.5 MCG INHALER INHALATION SCH ×2 (08:13→20:00)
[2020-12-27] MEDS: IPRATROPIUM-ALBUTEROL 3 ML NEB INHALATION SCH ×4 (08:13→20:00)
[2020-12-27] MEDS: ENOXAPARIN 40 MG/0.4 ML SYRINGE SQ SCH (08:19)
[2020-12-27] MEDS: PANTOPRAZOLE 40 MG TABLET PO SCH (08:21)
[2020-12-27] MEDS: IBUPROFEN 800 MG TAB PO PRN (08:21)
[2020-12-27] MEDS: GABAPENTIN 300 MG CAP PO SCH ×3 (08:21→22:12)
[2020-12-27] MEDS: NICOTINE 14MG/24HR PATCH TRANSDERM SCH (08:22)
[2020-12-27] MEDS: FOLIC ACID 1 MG TAB PO SCH (08:22)
[2020-12-27] MEDS: chlordiazePOXIDE 25 MG CAP PO SCH ×4 (08:22→22:12)
[2020-12-27] MEDS: METOPROLOL SUCCINATE (ER) 25 MG TAB.ER.24H PO SCH (08:22)
[2020-12-27] MEDS: cloNIDine HCL 0.1 MG TAB PO SCH ×3 (08:22→22:12)
[2020-12-27] MEDS: lisinopriL 10 MG TAB PO SCH ×2 (08:22→20:03)
[2020-12-27] MEDS ORDERED: INSULIN REGULAR 100 UNIT/ML VIAL SQ ONE (08:29)
[2020-12-27] MEDS: INSULIN ASPART (NovoLOG) 100 UNIT/ML VIAL SQ SCH ×4 (08:29→22:11)
[2020-12-27] MEDS: DOXYCYCLINE 100 MG CAP PO SCH ×2 (08:39→20:04)
[2020-12-27] MEDS: THIAMINE 100 MG TAB PO SCH ×2 (08:39→17:28)
[2020-12-27] MEDS: LORazepam 2 MG/ML INJ IV PRN (08:53)
[2020-12-27 10:28] LABS: Glucose,Whole Blood 290 mg/dL (75-99)
[2020-12-27] MEDS: INSULIN DETEMIR (LEVEMIR) 100 UNIT/ML SYR SQ SCH (10:36)
[2020-12-27] MEDS: DOCUSATE 100 MG CAP PO PRN (10:39)
--- NOTE | 2020-12-27 11:58 | P.PN ---
Subjective Progress Note Date: 12/27/20 Principal diagnosis: COPD exacerbation This is a 60-year-old female patient, who came into the hospital because of worsening shortness of breath. She was progressively getting worse over the past 6 weeks. She is alcoholic. She drinks beer and whiskey. She also smokes one pack of cigarettes a day. Denies having any previous history of pulmonary disease or disorder. No history of asthma. She lives in her house. She has 15 cancer within her house and she has several kittens by been probably defecating and urinating within the home environment.. The patient admits that she is not been living in a clean environment. She comes in to the hospital because of worsening shortness of breath. She was also having some signs of alcohol withdrawal and delirium tremens. Today she is feeling better. She is less short of breath. Her voice is hoarse. She has a congested cough. Unable to bring up much sputum. She still has exertional dyspnea. No nausea. No vomiting. No diarrhea. No chest pain. No hemoptysis. No pleurisy or the patient has other comorbidities including previous history of CVA which has resulted in to some vision changes in her right eye, diabetes mellitus and CAD and previous history of seizure disorder. She is afebrile for now and she is hemodynamically stable. Blood work from the emergency showed a white cell count a white count with hemoglobin 13.9. The serum bicarb was 27 with a sodium level of 137. Glucose 113. Coagulation profile was normal. Serum alcohol was 200 the time of admission. Lactic acid level was at 3.0. Troponin was negative at 0.012 and the proBNP level was 75. COVID-19 testing was negative and the patien t is fully vaccinated. On 12/25/2020 patient seen in follow-up on medical surgical floor. She is awake and alert, oriented 3, denies any acute distress, room air pulse ox is 95%, she states she is breathing comfortably, less wheezy and less congested, lung sounds today reveal some scattered rales, no significant wheezing noted. Patient has been afebrile, she continues on IV steroids, breathing treatments and antibiotics. She continues on CIWA protocol, CIWA scale was 6-7, she states she has a weak, little shaky on her feet. But no complaints of headaches marginal or visual hallucinations, she is pleasant, and cooperative. The patient is seen today 12/26/2020 in follow-up on the medical floor. She is currently sitting up in bed. Awake and alert in no acute distress. Maintaining O2 saturations in the mid 90s on room air. Somewhat teary-eyed today. Anxious regarding a diagnosis of COPD. She remains on IV Solu-Medrol, DuoNeb inhalations, empiric antibiotics. She remains in the CIWA protocol. Required Ativan at 8 AM this morning for a score of 13. Blood glucose 321. The patient is seen today 12/27/2020 in follow-up on the regular medical floor. She is awake and alert in no acute distress. Less teary-eyed today compared to yesterday. Still some anxiety. She is breathing better. Maintaining O2 saturations in the 90s on room air. She's been afebrile. Blood culture reveals no growth to date. Sputum culture is pending. White count 4.2. Hemoglobin 13.2. Platelet count 123. Sodium 134. Potassium 3.4. Creatinine 0.50. AST 56. ALT 53. She remains on Symbicort, DuoNeb inhalations, IV Solu Medrol. Empiric antibiotics the form of doxycycline. Lovenox for DVT prophylaxis. She remains on the CIWA protocol. Objective - Vital Signs Vital signs: Vital Signs Temp 97.7 F 12/27/20 07:00 Pulse 72 12/27/20 11:21 Resp 16 12/27/20 08:00 BP 176/98 12/27/20 07:00 Pulse Ox 94 L 12/27/20 07:00 Intake & Output 12/26/20 12/27/20 12/27/20 18:59 06:59 18:59 Intake Total 522 200 Balance 522 200 Intake: Oral 522 200 Other: Voiding Method Bedside Commode Bedside Commode Toilet Bedside Commode # Voids 1 2 # Bowel Movements 0 - Exam GENERAL EXAM: Alert, anxious, 60-year-old female patient, on room air, comfortable in no apparent distress. HEAD: Normocephalic. EYES: Normal reaction of pupils, equal size. NOSE: Clear with pink turbinates. THROAT: No erythema or exudates. NECK: No masses, no JVD. CHEST: No chest wall deformity. LUNGS: Equal air entry with bilateral end expiratory wheeze, diminished. CVS: S1 and S2 normal with no audible murmur, regular rhythm. ABDOMEN: No hepatosplenomegaly, normal bowel sounds, no guarding or rigidity. SPINE: No scoliosis or deformity SKIN: No rashes CENTRAL NERVOUS SYSTEM: No focal deficits, tone is normal in all 4 extremities. EXTREMITIES: There is no peripheral edema. No clubbing, no cyanosis. Peripheral pulses are intact. - Labs CBC & Chem 7: 12/27/20 04:57 12/27/20 04:57 Labs: Abnormal Lab Results - Last 24 Hours (Table) 12/26/20 12/26/20 12/26/20 Range/Units 04:40 04:40 11:50 RBC 3.83 L (4.10-5.20) X 10*6/uL MCV 97.9 H (80.0-97.0) fL MCH 33.9 H (27.0-32.0) pg Plt Count 137 L (140-440) X 10*3/uL Plt Count Comment DECREASED A Lymphocytes # 0.42 L (0.90-5.00) X 10*3/uL Monocytes # 0.14 L (0.20-1.00) X 10*3/uL Eosinophils # 0 L (0.04-0.35) X 10*3/uL Sodium 134 L (135-145) mmol/L Potassium 3.4 L (3.5-5.5) mmol/L Anion Gap 12.80 H (4.00-12.00) mmol/L Creatinine (0.52-1.04) mg/dL BUN/Creatinine Ratio 26.67 H (12.00-20.00) Ratio Glucose 297 H (70-110) mg/dL POC Glucose (mg/dL) 352 H (75-99) mg/dL Uric Acid (3.7-7.4) mg/dL AST 43 H (13-35) U/L ALT 54 H (8-44) U/L Alkaline Phosphatase 39 L (41-126) U/L 12/26/20 12/26/20 12/27/20 Range/Units 17:06 21:08 04:57 RBC (4.10-5.20) X 10*6/uL MCV (80.0-97.0) fL MCH (27.0-32.0) pg Plt Count 123 L (140-440) X 10*3/uL Plt Count Comment Lymphocytes # 0.5 L (0.90-5.00) X 10*3/uL Monocytes # (0.20-1.00) X 10*3/uL Eosinophils # (0.04-0.35) X 10*3/uL Sodium (135-145) mmol/L Potassium (3.5-5.5) mmol/L Anion Gap (4.00-12.00) mmol/L Creatinine (0.52-1.04) mg/dL BUN/Creatinine Ratio (12.00-20.00) Ratio Glucose (70-110) mg/dL POC Glucose (mg/dL) 274 H 260 H (75-99) mg/dL Uric Acid (3.7-7.4) mg/dL AST (13-35) U/L ALT (8-44) U/L Alkaline Phosphatase (41-126) U/L 12/27/20 12/27/20 12/27/20 Range/Units 04:57 07:19 10:27 RBC (4.10-5.20) X 10*6/uL MCV (80.0-97.0) fL MCH (27.0-32.0) pg Plt Count (140-440) X 10*3/uL Plt Count Comment Lymphocytes # (0.90-5.00) X 10*3/uL Monocytes # (0.20-1.00) X 10*3/uL Eosinophils # (0.04-0.35) X 10*3/uL Sodium 134 L (135-145) mmol/L Potassium 3.4 L (3.5-5.5) mmol/L Anion Gap (4.00-12.00) mmol/L Creatinine 0.50 L (0.52-1.04) mg/dL BUN/Creatinine Ratio (12.00-20.00) Ratio Glucose 291 H (70-110) mg/dL POC Glucose (mg/dL) 322 H 290 H (75-99) mg/dL Uric Acid 2.9 L (3.7-7.4) mg/dL AST 56 H (13-35) U/L ALT 53 H (8-44) U/L Alkaline Phosphatase (41-126) U/L Microbiology - Last 24 Hours (Table) 12/26/20 12:00 Gram Stain - Preliminary Sputum Sputum Culture - Preliminary 12/23/20 16:52 Blood Culture - Preliminary Blood No Growth after 72 hours Assessment and Plan Assessment: 1 Acute exacerbation of COPD with secondary shortness of breath 2 Chronic smoker 3 History of alcoholism with signs of early delirium tremens currently stable on CIWA protocol 4 Hypertension 5 Diabetes type 2 6 History of CVA with some right vision impairment 7 Diabetes mellitus 8 Seizure disorder 9 History of skin cancer, with resection, squamous cell carcinoma Plan: The patient was seen and evaluated by Dr. Bailey She is improved Continue the current treatment plan Again educated regarding the importance of complete smoking cessation Remains in the CIWA protocol Probable discharge in a.m. We will continue to follow I, the cosigning physician, performed a history & physical examination of the patient. Lungs sounds with bilateral end expiratory wheeze, diminished. Maintaining good O2 saturations in the 90s on room air. I discussed the assessment and plan of care with my nurse practitioner, Magui Garza. I attest to the above note as dictated by her.
[2020-12-27 12:41] LABS: Glucose,Whole Blood 277 mg/dL (75-99)
[2020-12-27] MEDS: SODIUM CHLORIDE 0.9% 1,000 ML IV SCH ×2 (12:43→22:20)
[2020-12-27] MEDS ORDERED: MAGNESIUM CITRATE 296 ML BOTTLE PO ONE (16:10)
[2020-12-27 17:38] LABS: Glucose,Whole Blood 239 mg/dL (75-99)
[2020-12-27] MEDS: hydrALAZINE HCL 20 MG/ML 1 ML VIAL IVP PRN (19:57)
[2020-12-27 20:15] LABS: Glucose,Whole Blood 244 mg/dL (75-99)
--- NOTE | 2020-12-27 20:27 | P.PN ---
Subjective Progress Note Date: 12/27/20 Principal diagnosis: Acute COPD exacerbation Alcohol intoxication 60-year-old female with past medical history of COPD. diabetes mellitus, hypertension, alcohol abuse, congestive heart failure unspecified was admitted to the hospital with difficulty in breathing and alcohol withdrawal. Patient has lengthy history of noncompliance with medical treatment plan and dependence with alcohol and nicotine. Patient continues to be on alcohol withdrawal protocol, followed by pulmonary critical care for COPD, followed by cardiology for hypertension and unspecified congestive heart failure. 12/25/2020 Patient is seen and examined at bedside area did she continues to have mild tremors and episodes of incontinence, and frequent forgetfulness of situation and place. Her respiratory rate is within normal range, patient continues to complain of shortness of breath and tremors and generalized fatigue. Patient denies fever, chest pain or palpitations at this time. Patient continues to receive IV steroids for COPD exacerbation and alcohol withdrawal protocol for alcohol abuse in the past. Throughout hospital stay patient has had elevated blood pressures, will start lisinopril 10 mg twice a day. Patient is poor historian for subjective data December 26, 2020 Patient seen and examined at bedside. Patient continues to have episodes of tremors possibly related to alcohol withdrawal. Patient continues to endorse shortness of breath and tremors and generalized fatigue. Patient denies fever, chills chest pain or palpitations at this time. Patient continues to receive IV steroids for COPD exacerbation. Patient continues to be on alcohol withdrawal protocol for alcohol abuse. Additional anti-hypertensives have been added to control blood pressure. December 27, 2020 patient seen and examined at bedside. Patient screening is improving and decrease tremors noted. Patient also able to recall events with less delayed response. Patient continues to appear anxious at times. Patient continues to endorse mild shortness of breath and tremors. Patient no acute signs of distress Objective - Vital Signs Vital signs: Vital Signs Temp 97.7 F 12/27/20 19:37 Pulse 66 12/27/20 19:37 Resp 18 12/27/20 19:37 BP 180/98 12/27/20 19:37 Pulse Ox 96 12/27/20 19:37 Intake & Output 12/27/20 12/27/20 12/28/20 06:59 18:59 06:59 Intake Total 800 Output Total 400 Balance 400 Intake: IV 600 Sodium Chloride 0.9% 1, 600 000 ml @ 75 mls/hr IV . [id number] [facility] Rx#:[id number] Oral 200 Output: Urine 400 Other: Voiding Method Bedside Commode Toilet Bedside Commode # Voids 2 # Bowel Movements 0 2 - Constitutional General appearance: Present: no acute distress - EENT Eyes: Present: PERRLA Ears: bilateral: normal - Neck Neck: Present: normal ROM Carotids: bilateral: upstroke normal Thyroid: bilateral: normal size - Respiratory Respiratory: bilateral: CTA (Anterior and posterior lung lara) - Cardiovascular Heart rate: 74 Rhythm: regular Heart sounds: normal: S1, S2 - Peripheral pulses radial pulse Peripheral Pulses: bilateral: Normal dorsalis pedis Peripheral Pulses: bilateral: Normal - Gastrointestinal General gastrointestinal: Present: absent bowel sounds - Neurologic Neurologic: Present: CNII-XII intact - Musculoskeletal Musculoskeletal: Present: generalized weakness - Psychiatric Psychiatric: Present: A&O x's 3 - Allied health notes Allied health notes reviewed: nursing - Labs CBC & Chem 7: 12/27/20 04:57 12/27/20 04:57 Labs: Abnormal Lab Results - Last 24 Hours (Table) 12/26/20 12/27/20 12/27/20 Range/Units 21:08 04:57 04:57 Plt Count 123 L (150-450) k/uL Lymphocytes # 0.5 L (1.0-4.8) k/uL Sodium 134 L (137-145) mmol/L Potassium 3.4 L (3.5-5.1) mmol/L Creatinine 0.50 L (0.52-1.04) mg/dL Glucose 291 H (74-99) mg/dL POC Glucose (mg/dL) 260 H (75-99) mg/dL Uric Acid 2.9 L (3.7-7.4) mg/dL AST 56 H (14-36) U/L ALT 53 H (4-34) U/L 12/27/20 12/27/20 12/27/20 Range/Units 07:19 10:27 12:28 Plt Count (150-450) k/uL Lymphocytes # (1.0-4.8) k/uL Sodium (137-145) mmol/L Potassium (3.5-5.1) mmol/L Creatinine (0.52-1.04) mg/dL Glucose (74-99) mg/dL POC Glucose (mg/dL) 322 H 290 H 277 H (75-99) mg/dL Uric Acid (3.7-7.4) mg/dL AST (14-36) U/L ALT (4-34) U/L 12/27/20 12/27/20 Range/Units 17:35 20:14 Plt Count (150-450) k/uL Lymphocytes # (1.0-4.8) k/uL Sodium (137-145) mmol/L Potassium (3.5-5.1) mmol/L Creatinine (0.52-1.04) mg/dL Glucose (74-99) mg/dL POC Glucose (mg/dL) 239 H 244 H (75-99) mg/dL Uric Acid (3.7-7.4) mg/dL AST (14-36) U/L ALT (4-34) U/L Microbiology - Last 24 Hours (Table) 12/23/20 16:52 Blood Culture - Preliminary Blood No Growth after 96 hours 12/26/20 12:00 Gram Stain - Preliminary Sputum Sputum Culture - Preliminary Assessment and Plan Assessment: COPD exacerbation Alcohol intoxicationWith alcohol withdrawal Lactic acidosis Transaminitis-possibly alcohol related Low magnesium Alcohol abuse disorder Diabetes mellitus type 2 [id number] Hypertension History of myocardial infarction Osteoarthritis Seizure disorder History of squamous cell cancer of left forearm Chronic back pain Full code Plan: COPD exacerbation, continue [id number] breathing treatments continue IV steroids, continue consultation with pulmonary critical care for recommendations and treatment plan Alcoholism intoxication, continue alcohol withdrawal protocol Low magnesium continue magnesium replacement protocol Hypertensive episodes adding ODIN inhibitor lisinopril 10 mg by mouth twice a day, And additional antihypertensives ordered by cardiology Diabetes mellitus type 2, continue sliding scale, Basal insulin of 15 units in a.m. Continue to monitor diagnostics and vital signs Continue medical management Further recommendations to come based on patient's clinical condition Hopeful discharge in 24 hours Time with Patient: Greater than 30
[2020-12-27] MEDS: amLODIPine 10 MG TAB PO SCH (22:12)
[2020-12-28] MEDS: LORazepam 2 MG/ML INJ IV PRN ×2 (00:35→13:33)
[2020-12-28 05:59] LABS: Basophils % (A) 0 %; Eosinophils % (A) 1 %; HCT 39.8 % (34.0-46.0); HGB 13.8 gm/dL (11.4-16.0); Lymphocytes # (A) 0.7 k/uL (1.0-4.8); Lymphocytes % (A) 18 %; MCH 34.1 pg (25.0-35.0); MCHC 34.7 g/dL (31.0-37.0); MCV 98.3 fL (80.0-100.0); Mean Platelet Volume 7.7; Monocytes # (A) 0.2 k/uL (0-1.0); Monocytes % (A) 5 %; Neutrophils % (A) 75 %; Platelet Count 119 k/uL (150-450); RBC 4.05 m/uL (3.80-5.40); RDW 13.6 % (11.5-15.5)
[2020-12-28 06:13] LABS: ALT 64 U/L (4-34); AST 47 U/L (14-36); African American GFR (CKD) >90 (>60 ml/min/1.73 sqM); Albumin/Globulin Ratio 1.5; Alkaline Phosphatase 38 U/L (38-126); Anion Gap 6 mmol/L; Blood Urea Nitrogen 14 mg/dL (7-17); Carbon Dioxide 26 mmol/L (22-30); Chloride 103 mmol/L (98-107); Globulin 2.6 g/dL; Glucose 248 mg/dL (74-99); Magnesium 2.4 mg/dL (1.6-2.3); Non-African American GFR(CKD) >90 (>60 ml/min/1.73 sqM); Potassium 4.5 mmol/L (3.5-5.1); Sodium 135 mmol/L (137-145); Total Bilirubin 0.7 mg/dL (0.2-1.3); Total Protein 6.6 g/dL (6.3-8.2)
[2020-12-28 07:06] LABS: Glucose,Whole Blood 252 mg/dL (75-99)
[2020-12-28] MEDS: IPRATROPIUM-ALBUTEROL 3 ML NEB INHALATION SCH ×4 (07:18→19:01)
[2020-12-28] MEDS: SYMBICORT 160-4.5 MCG INHALER INHALATION SCH ×3 (07:18→19:01)
[2020-12-28] MEDS: INSULIN DETEMIR (LEVEMIR) 100 UNIT/ML SYR SQ SCH (07:29)
[2020-12-28] MEDS: INSULIN ASPART (NovoLOG) 100 UNIT/ML VIAL SQ SCH ×4 (07:29→21:22)
[2020-12-28] MEDS: PANTOPRAZOLE 40 MG TABLET PO SCH (07:30)
[2020-12-28] MEDS: cloNIDine HCL 0.1 MG TAB PO SCH ×3 (07:31→21:26)
[2020-12-28] MEDS: methylPREDNISolone SOD SUCCI 40 MG/ML 1 ML VIAL IV SCH ×2 (07:31→17:02)
[2020-12-28] MEDS: amLODIPine 10 MG TAB PO SCH (07:31)
[2020-12-28] MEDS: THIAMINE 100 MG TAB PO SCH ×2 (08:20→17:44)
[2020-12-28] MEDS: lisinopriL 10 MG TAB PO SCH ×2 (08:20→21:23)
[2020-12-28] MEDS: GABAPENTIN 300 MG CAP PO SCH ×3 (08:20→21:28)
[2020-12-28] MEDS: chlordiazePOXIDE 25 MG CAP PO SCH ×4 (08:20→21:27)
[2020-12-28] MEDS: METOPROLOL SUCCINATE (ER) 25 MG TAB.ER.24H PO SCH (08:20)
[2020-12-28] MEDS: NICOTINE 14MG/24HR PATCH TRANSDERM SCH (08:20)
[2020-12-28] MEDS: ENOXAPARIN 40 MG/0.4 ML SYRINGE SQ SCH (08:20)
[2020-12-28] MEDS: DOXYCYCLINE 100 MG CAP PO SCH ×2 (08:20→21:57)
[2020-12-28] MEDS: FOLIC ACID 1 MG TAB PO SCH (08:35)
[2020-12-28] MEDS ORDERED: hydrALAZINE HCL 20 MG/ML 1 ML VIAL IVP PRN (10:08)
[2020-12-28] MEDS: CHLORTHALIDONE 25 MG TAB PO SCH (11:06)
[2020-12-28 11:42] LABS: Glucose,Whole Blood 269 mg/dL (75-99)
[2020-12-28] MEDS: MAG HYDROX/AL HYDROX/SIMETH 30 ML, LIDOCAINE VISCOUS 30 ML, diphenhydrAMINE ELIXIR 75 M... PO SCH ×12 (12:55→21:28)
--- NOTE | 2020-12-28 14:28 | P.PN ---
Subjective Progress Note Date: 12/28/20 Principal diagnosis: COPD exacerbation This is a 60-year-old female patient, who came into the hospital because of worsening shortness of breath. She was progressively getting worse over the past 6 weeks. She is alcoholic. She drinks beer and whiskey. She also smokes one pack of cigarettes a day. Denies having any previous history of pulmonary disease or disorder. No history of asthma. She lives in her house. She has 15 cancer within her house and she has several kittens by been probably defecating and urinating within the home environment.. The patient admits that she is not been living in a clean environment. She comes in to the hospital because of worsening shortness of breath. She was also having some signs of alcohol withdrawal and delirium tremens. Today she is feeling better. She is less short of breath. Her voice is hoarse. She has a congested cough. Unable to bring up much sputum. She still has exertional dyspnea. No nausea. No vomiting. No diarrhea. No chest pain. No hemoptysis. No pleurisy or the patient has other comorbidities including previous history of CVA which has resulted in to some vision changes in her right eye, diabetes mellitus and CAD and previous history of seizure disorder. She is afebrile for now and she is hemodynamically stable. Blood work from the emergency showed a white cell count a white count with hemoglobin 13.9. The serum bicarb was 27 with a sodium level of 137. Glucose 113. Coagulation profile was normal. Serum alcohol was 200 the time of admission. Lactic acid level was at 3.0. Troponin was negative at 0.012 and the proBNP level was 75. COVID-19 testing was negative and the patien t is fully vaccinated. On 12/25/2020 patient seen in follow-up on medical surgical floor. She is awake and alert, oriented 3, denies any acute distress, room air pulse ox is 95%, she states she is breathing comfortably, less wheezy and less congested, lung sounds today reveal some scattered rales, no significant wheezing noted. Patient has been afebrile, she continues on IV steroids, breathing treatments and antibiotics. She continues on CIWA protocol, CIWA scale was 6-7, she states she has a weak, little shaky on her feet. But no complaints of headaches marginal or visual hallucinations, she is pleasant, and cooperative. The patient is seen today 12/26/2020 in follow-up on the medical floor. She is currently sitting up in bed. Awake and alert in no acute distress. Maintaining O2 saturations in the mid 90s on room air. Somewhat teary-eyed today. Anxious regarding a diagnosis of COPD. She remains on IV Solu-Medrol, DuoNeb inhalations, empiric antibiotics. She remains in the CIWA protocol. Required Ativan at 8 AM this morning for a score of 13. Blood glucose 321. The patient is seen today 12/27/2020 in follow-up on the regular medical floor. She is awake and alert in no acute distress. Less teary-eyed today compared to yesterday. Still some anxiety. She is breathing better. Maintaining O2 saturations in the 90s on room air. She's been afebrile. Blood culture reveals no growth to date. Sputum culture is pending. White count 4.2. Hemoglobin 13.2. Platelet count 123. Sodium 134. Potassium 3.4. Creatinine 0.50. AST 56. ALT 53. She remains on Symbicort, DuoNeb inhalations, IV Solu Medrol. Empiric antibiotics the form of doxycycline. Lovenox for DVT prophylaxis. She remains on the CIWA protocol. The patient is seen today 12/28/2020 in follow-up on the regular medical floor. She is sitting up in a chair. Awake and alert in no acute distress. Currently maintaining O2 saturations in the mid 90s. Afebrile. She is less anxious today compared to yesterday. Blood culture reveals no growth. Sputum culture pending. White count 4.0. Hemoglobin 13.8. Sodium 135. Potassium 4.5. Creatinine 0.54. Glucose 248. She remains on Symbicort, DuoNeb inhalations, IV Solu Medrol. Empiric antibiotics the form of doxycycline. Lovenox for DVT prophylaxis. She remains on the CIWA protocol. The plan is to go to [facility] for further rehabilitation. She is agreeable. Objective - Vital Signs Vital signs: Vital Signs Temp 97.4 F L 12/28/20 07:52 Pulse 80 12/28/20 11:10 Resp 20 12/28/20 08:00 BP 149/82 12/28/20 11:05 Pulse Ox 96 12/28/20 07:52 Intake & Output 12/27/20 12/28/20 12/28/20 18:59 06:59 18:59 Intake Total 800 900 Output Total 400 Balance 400 900 Intake: IV 600 Sodium Chloride 0.9% 1, 600 000 ml @ 75 mls/hr IV . [id number] [facility] Rx#:[id number] Intake, IV Titration 900 Amount Sodium Chloride 0.9% 1, 900 000 ml @ 75 mls/hr IV . [id number] [facility] Rx#:[id number] Oral 200 Output: Urine 400 Other: Voiding Method Toilet Toilet Toilet Bedside Commode Bedside Commode Bedside Commode # Voids 5 # Bowel Movements 2 2 - Exam GENERAL EXAM: Alert, anxious, 60-year-old female patient, on room air, comfortable in no apparent distress. HEAD: Normocephalic. EYES: Normal reaction of pupils, equal size. NOSE: Clear with pink turbinates. THROAT: No erythema or exudates. NECK: No masses, no JVD. CHEST: No chest wall deformity. LUNGS: Equal air entry with bilateral end expiratory wheeze, diminished. CVS: S1 and S2 normal with no audible murmur, regular rhythm. ABDOMEN: No hepatosplenomegaly, normal bowel sounds, no guarding or rigidity. SPINE: No scoliosis or deformity SKIN: No rashes CENTRAL NERVOUS SYSTEM: No focal deficits, tone is normal in all 4 extremities. EXTREMITIES: There is no peripheral edema. No clubbing, no cyanosis. Peripheral pulses are intact. - Labs CBC & Chem 7: 12/28/20 05:35 12/28/20 05:35 Labs: Abnormal Lab Results - Last 24 Hours (Table) 12/27/20 12/27/20 12/28/20 Range/Units 17:35 20:14 05:35 Plt Count 119 L (150-450) k/uL Lymphocytes # 0.7 L (1.0-4.8) k/uL Sodium (137-145) mmol/L Glucose (74-99) mg/dL POC Glucose (mg/dL) 239 H 244 H (75-99) mg/dL Magnesium (1.6-2.3) mg/dL AST (14-36) U/L ALT (4-34) U/L 12/28/20 12/28/20 12/28/20 Range/Units 05:35 07:05 11:41 Plt Count (150-450) k/uL Lymphocytes # (1.0-4.8) k/uL Sodium 135 L (137-145) mmol/L Glucose 248 H (74-99) mg/dL POC Glucose (mg/dL) 252 H 269 H (75-99) mg/dL Magnesium 2.4 H (1.6-2.3) mg/dL AST 47 H (14-36) U/L ALT 64 H (4-34) U/L Microbiology - Last 24 Hours (Table) 12/23/20 16:52 Blood Culture - Preliminary Blood No Growth after 96 hours Assessment and Plan Assessment: 1 Acute exacerbation of COPD with secondary shortness of breath 2 Chronic smoker 3 History of alcoholism with signs of early delirium tremens currently stable on CIWA protocol 4 Hypertension 5 Diabetes type 2 6 History of CVA with some right vision impairment 7 Diabetes mellitus 8 Seizure disorder 9 History of skin cancer, with resection, squamous cell carcinoma Plan: The patient was seen and evaluated by Dr. Bailey She is cleared for discharge to [facility] on the [place] Complete a prednisone taper Continue bronchodilators I, the cosigning physician, performed a history & physical examination of the patient. Lungs sounds clear, diminished. Maintaining good O2 saturations in the 90s on room air. I discussed the assessment and plan of care with my nurse practitioner, Magui Garza. I attest to the above note as dictated by her.
[2020-12-28 17:42] LABS: Glucose,Whole Blood 273 mg/dL (75-99)
[2020-12-28 20:21] LABS: Glucose,Whole Blood 185 mg/dL (75-99)
[2020-12-28] MEDS: predniSONE 10 MG TAB PO SCH (21:23)
[2020-12-28] MEDS: IBUPROFEN 800 MG TAB PO PRN (21:57)
[2020-12-28] MEDS: SODIUM CHLORIDE 0.9% 1,000 ML IV SCH (21:59)
--- NOTE | 2020-12-28 22:51 | P.PN ---
Subjective Progress Note Date: 12/28/20 Principal diagnosis: Acute COPD exacerbation Alcohol intoxication with withdrawal 60-year-old female with past medical history of COPD. diabetes mellitus, hypertension, alcohol abuse, congestive heart failure unspecified was admitted to the hospital with difficulty in breathing and alcohol withdrawal. Patient has lengthy history of noncompliance with medical treatment plan and dependence with alcohol and nicotine. Patient continues to be on alcohol withdrawal protocol, followed by pulmonary critical care for COPD, followed by cardiology for hypertension and unspecified congestive heart failure. 12/25/2020 Patient is seen and examined at bedside area did she continues to have mild tremors and episodes of incontinence, and frequent forgetfulness of situation and place. Her respiratory rate is within normal range, patient continues to complain of shortness of breath and tremors and generalized fatigue. Patient denies fever, chest pain or palpitations at this time. Patient continues to receive IV steroids for COPD exacerbation and alcohol withdrawal protocol for alcohol abuse in the past. Throughout hospital stay patient has had elevated blood pressures, will start lisinopril 10 mg twice a day. Patient is poor historian for subjective data December 26, 2020 Patient seen and examined at bedside. Patient continues to have episodes of tremors possibly related to alcohol withdrawal. Patient continues to endorse shortness of breath and tremors and generalized fatigue. Patient denies fever, chills chest pain or palpitations at this time. Patient continues to receive IV steroids for COPD exacerbation. Patient continues to be on alcohol withdrawal protocol for alcohol abuse. Additional anti-hypertensives have been added to control blood pressure. December 27, 2020 patient seen and examined at bedside. Patient breathing is improving and decrease tremors noted. Patient also able to recall events with less delayed response. Patient continues to appear anxious at times. Patient continues to endorse mild shortness of breath and tremors. Patient no acute signs of distress December 28, 2020 patient seen and examined and at bedside.Patient speaking full sentences with no difficulty with respirations. No noted tremors noted during examination. Patient Agreeable [facility]. Objective - Vital Signs Vital signs: Vital Signs Temp 98.3 F 12/28/20 20:00 Pulse 66 12/28/20 20:00 Resp 20 12/28/20 20:00 BP 123/67 12/28/20 20:00 Pulse Ox 95 12/28/20 20:00 Intake & Output 12/28/20 12/28/20 12/29/20 06:59 18:59 06:59 Intake Total 900 Balance 900 Intake: Intake, IV Titration 900 Amount Sodium Chloride 0.9% 1, 900 000 ml @ 75 mls/hr IV . [id number] Rx#:[id number] Other: Voiding Method Toilet Toilet Toilet Bedside Commode Bedside Commode Bedside Commode # Voids 5 2 2 # Bowel Movements 2 - Constitutional General appearance: Present: disheveled - EENT Eyes: Present: edentulous, PERRLA Ears: bilateral: normal - Neck Neck: Present: normal ROM Carotids: bilateral: upstroke normal - Respiratory Respiratory: bilateral: CTA (Anterior and posterior lung lara) - Cardiovascular Heart rate: 74 Rhythm: regular Heart sounds: normal: S1, S2 - Peripheral pulses radial pulse Peripheral Pulses: bilateral: Normal dorsalis pedis Peripheral Pulses: bilateral: Normal - Gastrointestinal General gastrointestinal: Present: normal bowel sounds - Integumentary Integumentary: Present: normal turgor - Neurologic Neurologic: Present: CNII-XII intact - Musculoskeletal Musculoskeletal: Present: gait normal - Psychiatric Psychiatric: Present: A&O x's 3 - Labs CBC & Chem 7: 12/28/20 05:35 12/28/20 05:35 Labs: Abnormal Lab Results - Last 24 Hours (Table) 12/28/20 12/28/20 12/28/20 Range/Units 05:35 05:35 07:05 Plt Count 119 L (150-450) k/uL Lymphocytes # 0.7 L (1.0-4.8) k/uL Sodium 135 L (137-145) mmol/L Glucose 248 H (74-99) mg/dL POC Glucose (mg/dL) 252 H (75-99) mg/dL Magnesium 2.4 H (1.6-2.3) mg/dL AST 47 H (14-36) U/L ALT 64 H (4-34) U/L 12/28/20 12/28/20 12/28/20 Range/Units 11:41 17:41 20:20 Plt Count (150-450) k/uL Lymphocytes # (1.0-4.8) k/uL Sodium (137-145) mmol/L Glucose (74-99) mg/dL POC Glucose (mg/dL) 269 H 273 H 185 H (75-99) mg/dL Magnesium (1.6-2.3) mg/dL AST (14-36) U/L ALT (4-34) U/L Microbiology - Last 24 Hours (Table) 12/23/20 16:52 Blood Culture - Preliminary Blood No Growth after 120 hours Assessment and Plan Assessment: COPD exacerbation Alcohol intoxicationWith alcohol withdrawal Lactic acidosis Transaminitis-possibly alcohol related Low magnesium Alcohol abuse disorder Diabetes mellitus type 2 [id number] Hypertension History of myocardial infarction Osteoarthritis Seizure disorder History of squamous cell cancer of left forearm Chronic back pain Full code Plan: COPD exacerbation, continue [id number] breathing treatments continue IV steroids, continue consultation with pulmonary critical care for recommendations and treatment plan Alcoholism intoxication, continue alcohol withdrawal protocol Hypertensive, Continue antihypertensive medications Diabetes mellitus type 2, continue sliding scale, Basal insulin of 15 units in a.m. Continue to monitor diagnostics and vital signs Continue medical management Further recommendations to come based on patient's clinical condition Hopeful discharge today to [facility] Time with Patient: Greater than 30
[2020-12-29] MEDS: MAG HYDROX/AL HYDROX/SIMETH 30 ML, LIDOCAINE VISCOUS 30 ML, diphenhydrAMINE ELIXIR 75 M... PO SCH ×16 (03:16→22:16)
[2020-12-29] MEDS: SODIUM CHLORIDE 0.9% 1,000 ML IV SCH ×2 (03:21→12:58)
[2020-12-29 07:39] LABS: Glucose,Whole Blood 248 mg/dL (75-99)
[2020-12-29] MEDS: IPRATROPIUM-ALBUTEROL 3 ML NEB INHALATION SCH ×4 (08:20→20:17)
[2020-12-29] MEDS: SYMBICORT 160-4.5 MCG INHALER INHALATION SCH ×2 (08:20→20:17)
[2020-12-29] MEDS: chlordiazePOXIDE 25 MG CAP PO SCH ×4 (08:28→22:15)
[2020-12-29] MEDS: NICOTINE 14MG/24HR PATCH TRANSDERM SCH (08:28)
[2020-12-29] MEDS: ENOXAPARIN 40 MG/0.4 ML SYRINGE SQ SCH (08:28)
[2020-12-29] MEDS: INSULIN DETEMIR (LEVEMIR) 100 UNIT/ML SYR SQ SCH (08:28)
[2020-12-29] MEDS: INSULIN ASPART (NovoLOG) 100 UNIT/ML VIAL SQ SCH ×4 (08:28→22:15)
[2020-12-29] MEDS: lisinopriL 10 MG TAB PO SCH ×2 (08:29→22:15)
[2020-12-29] MEDS: METOPROLOL SUCCINATE (ER) 25 MG TAB.ER.24H PO SCH (08:29)
[2020-12-29] MEDS: THIAMINE 100 MG TAB PO SCH ×2 (08:29→16:58)
[2020-12-29] MEDS: amLODIPine 10 MG TAB PO SCH (08:29)
[2020-12-29] MEDS: predniSONE 10 MG TAB PO SCH ×2 (08:29→22:15)
[2020-12-29] MEDS: DOXYCYCLINE 100 MG CAP PO SCH ×2 (08:29→23:03)
[2020-12-29] MEDS: CHLORTHALIDONE 25 MG TAB PO SCH (08:29)
[2020-12-29] MEDS: PANTOPRAZOLE 40 MG TABLET PO SCH (08:29)
[2020-12-29] MEDS: cloNIDine HCL 0.1 MG TAB PO SCH ×3 (08:29→22:15)
[2020-12-29] MEDS: FOLIC ACID 1 MG TAB PO SCH (08:30)
[2020-12-29] MEDS: GABAPENTIN 300 MG CAP PO SCH ×2 (09:08→22:15)
[2020-12-29 09:29] LABS: Basophils # (A) 0 X 10*3/uL (0.00-0.10); Basophils % (A) 0 %; Eosinophils # (A) 0.03 X 10*3/uL (0.04-0.35); Eosinophils % (A) 0.7 %; HCT 38.7 % (37.2-46.3); HGB 13.3 g/dL (12.0-15.0); Lymphocytes # (A) 1.19 X 10*3/uL (0.90-5.00); Lymphocytes % (A) 26.3 %; MCHC 34.4 g/dL (32.0-37.0); Mean Platelet Volume 10.6 fL (9.5-12.2); Monocytes # (A) 0.45 X 10*3/uL (0.20-1.00); Monocytes % (A) 9.9 %; Neutrophils # (A) 2.83 X 10*3/uL (1.80-7.70); Neutrophils % (A) 62.4 %; Platelet Count 122 X 10*3/uL (140-440); RBC 3.91 X 10*6/uL (4.10-5.20); RDW 13.2 % (11.5-14.5); WBC 4.53 X 10*3/uL (4.50-10.00)
[2020-12-29 10:08] LABS: African American GFR (CKD) 109.1 (60.0-200.0); Albumin/Globulin Ratio 1.67 (1.60-3.17); Anion Gap 8.5 mmol/L (4.00-12.00); BUN/Creat Ratio 21.43 Ratio (12.00-20.00); Carbon Dioxide 26.5 mmol/L (21.6-31.8); Globulin 2.4 g/dL (1.6-3.3); Non-African American GFR(CKD) 94.2 (60.0-200.0); Potassium 4.4 mmol/L (3.5-5.5); Total Bilirubin 0.9 mg/dL (0.2-1.2); Total Protein 6.4 g/dL (6.2-8.2)
--- NOTE | 2020-12-29 11:34 | P.PN ---
Subjective Progress Note Date: 12/29/20 Principal diagnosis: COPD exacerbation This is a 60-year-old female patient, who came into the hospital because of worsening shortness of breath. She was progressively getting worse over the past 6 weeks. She is alcoholic. She drinks beer and whiskey. She also smokes one pack of cigarettes a day. Denies having any previous history of pulmonary disease or disorder. No history of asthma. She lives in her house. She has 15 cancer within her house and she has several kittens by been probably defecating and urinating within the home environment.. The patient admits that she is not been living in a clean environment. She comes in to the hospital because of worsening shortness of breath. She was also having some signs of alcohol withdrawal and delirium tremens. Today she is feeling better. She is less short of breath. Her voice is hoarse. She has a congested cough. Unable to bring up much sputum. She still has exertional dyspnea. No nausea. No vomiting. No diarrhea. No chest pain. No hemoptysis. No pleurisy or the patient has other comorbidities including previous history of CVA which has resulted in to some vision changes in her right eye, diabetes mellitus and CAD and previous history of seizure disorder. She is afebrile for now and she is hemodynamically stable. Blood work from the emergency showed a white cell count a white count with hemoglobin 13.9. The serum bicarb was 27 with a sodium level of 137. Glucose 113. Coagulation profile was normal. Serum alcohol was 200 the time of admission. Lactic acid level was at 3.0. Troponin was negative at 0.012 and the proBNP level was 75. COVID-19 testing was negative and the patien t is fully vaccinated. On 12/25/2020 patient seen in follow-up on medical surgical floor. She is awake and alert, oriented 3, denies any acute distress, room air pulse ox is 95%, she states she is breathing comfortably, less wheezy and less congested, lung sounds today reveal some scattered rales, no significant wheezing noted. Patient has been afebrile, she continues on IV steroids, breathing treatments and antibiotics. She continues on CIWA protocol, CIWA scale was 6-7, she states she has a weak, little shaky on her feet. But no complaints of headaches marginal or visual hallucinations, she is pleasant, and cooperative. The patient is seen today 12/26/2020 in follow-up on the medical floor. She is currently sitting up in bed. Awake and alert in no acute distress. Maintaining O2 saturations in the mid 90s on room air. Somewhat teary-eyed today. Anxious regarding a diagnosis of COPD. She remains on IV Solu-Medrol, DuoNeb inhalations, empiric antibiotics. She remains in the CIWA protocol. Required Ativan at 8 AM this morning for a score of 13. Blood glucose 321. The patient is seen today 12/27/2020 in follow-up on the regular medical floor. She is awake and alert in no acute distress. Less teary-eyed today compared to yesterday. Still some anxiety. She is breathing better. Maintaining O2 saturations in the 90s on room air. She's been afebrile. Blood culture reveals no growth to date. Sputum culture is pending. White count 4.2. Hemoglobin 13.2. Platelet count 123. Sodium 134. Potassium 3.4. Creatinine 0.50. AST 56. ALT 53. She remains on Symbicort, DuoNeb inhalations, IV Solu Medrol. Empiric antibiotics the form of doxycycline. Lovenox for DVT prophylaxis. She remains on the CIWA protocol. The patient is seen today 12/28/2020 in follow-up on the regular medical floor. She is sitting up in a chair. Awake and alert in no acute distress. Currently maintaining O2 saturations in the mid 90s. Afebrile. She is less anxious today compared to yesterday. Blood culture reveals no growth. Sputum culture pending. White count 4.0. Hemoglobin 13.8. Sodium 135. Potassium 4.5. Creatinine 0.54. Glucose 248. She remains on Symbicort, DuoNeb inhalations, IV Solu Medrol. Empiric antibiotics the form of doxycycline. Lovenox for DVT prophylaxis. She remains on the CIWA protocol. The plan is to go to [facility] for further rehabilitation. She is agreeable. The patient is seen today 12/29/2020 in follow-up on the regular medical floor. She is awake and alert in no acute distress. She is calm and relaxed. Continue O2 saturations in the 90s on room air. Afebrile. Hemodynamically stable. Blood cultures reveal no growth. Sputum culture no growth. White count 4.5. Hemoglobin 13.3. Sodium 135. Potassium 4.4. Creatinine 0.7. Glucose 220. AST 96. ALT 109. She remains on prednisone, Symbicort, DuoNeb inhalations. NicoDerm patch in place. Objective - Vital Signs Vital signs: Vital Signs Temp 97.9 F 12/29/20 07:00 Pulse 77 12/29/20 08:36 Resp 18 12/29/20 08:00 BP 159/79 12/29/20 07:00 Pulse Ox 95 12/29/20 02:00 Intake & Output 12/28/20 12/29/20 12/29/20 18:59 06:59 18:59 Intake Total 200 Balance 200 Intake: Oral 200 Other: Voiding Method Toilet Toilet Toilet Bedside Commode Bedside Commode Bedside Commode # Voids 2 4 - Exam GENERAL EXAM: Alert, anxious, 60-year-old female patient, on room air, comfortable in no apparent distress. HEAD: Normocephalic. EYES: Normal reaction of pupils, equal size. NOSE: Clear with pink turbinates. THROAT: No erythema or exudates. NECK: No masses, no JVD. CHEST: No chest wall deformity. LUNGS: Equal air entry with bilateral end expiratory wheeze, diminished. CVS: S1 and S2 normal with no audible murmur, regular rhythm. ABDOMEN: No hepatosplenomegaly, normal bowel sounds, no guarding or rigidity. SPINE: No scoliosis or deformity SKIN: No rashes CENTRAL NERVOUS SYSTEM: No focal deficits, tone is normal in all 4 extremities. EXTREMITIES: There is no peripheral edema. No clubbing, no cyanosis. Peripheral pulses are intact. - Labs CBC & Chem 7: 12/29/20 05:56 12/29/20 05:56 Labs: Abnormal Lab Results - Last 24 Hours (Table) 12/28/20 12/28/20 12/28/20 Range/Units 11:41 17:41 20:20 RBC (4.10-5.20) X 10*6/uL MCV (80.0-97.0) fL MCH (27.0-32.0) pg Plt Count (140-440) X 10*3/uL Eosinophils # (0.04-0.35) X 10*3/uL BUN/Creatinine Ratio (12.00-20.00) Ratio Glucose (70-110) mg/dL POC Glucose (mg/dL) 269 H 273 H 185 H (75-99) mg/dL AST (13-35) U/L ALT (8-44) U/L Alkaline Phosphatase (41-126) U/L 12/29/20 12/29/20 12/29/20 Range/Units 05:56 05:56 07:28 RBC 3.91 L (4.10-5.20) X 10*6/uL MCV 99.0 H (80.0-97.0) fL MCH 34.0 H (27.0-32.0) pg Plt Count 122 L (140-440) X 10*3/uL Eosinophils # 0.03 L (0.04-0.35) X 10*3/uL BUN/Creatinine Ratio 21.43 H (12.00-20.00) Ratio Glucose 220 H (70-110) mg/dL POC Glucose (mg/dL) 248 H (75-99) mg/dL AST 96 H (13-35) U/L ALT 109 H (8-44) U/L Alkaline Phosphatase 40 L (41-126) U/L Microbiology - Last 24 Hours (Table) 12/26/20 12:00 Gram Stain - Final Sputum Sputum Culture - Final 12/23/20 16:52 Blood Culture - Preliminary Blood No Growth after 120 hours Assessment and Plan Assessment: 1 Acute exacerbation of COPD with secondary shortness of breath 2 Chronic smoker 3 History of alcoholism with signs of early delirium tremens currently stable on CIWA protocol 4 Hypertension 5 Diabetes type 2 6 History of CVA with some right vision impairment 7 Diabetes mellitus 8 Seizure disorder 9 History of skin cancer, with resection, squamous cell carcinoma Plan: The patient was seen and evaluated by Dr. Bailey She is cleared for discharge Complete a prednisone taper Continue DuoNeb inhalations and Symbicort Follow-up in our office in 1-2 weeks' time I, the cosigning physician, performed a history & physical examination of the patient. Lungs sounds clear, diminished. Maintaining good O2 saturations in the 90s on room air. I discussed the assessment and plan of care with my nurse practitioner, Magui Garza. I attest to the above note as dictated by her.
[2020-12-29 11:53] LABS: Glucose,Whole Blood 280 mg/dL (75-99)
[2020-12-29 17:24] LABS: Glucose,Whole Blood 244 mg/dL (75-99)
[2020-12-29 20:27] LABS: Glucose,Whole Blood 228 mg/dL (75-99)
--- NOTE | 2020-12-30 02:58 | PN ---
PROGRESS NOTE DATE OF SERVICE: 12/29/2020 I am covering for Dr. Thakkar. This 60-year-old woman who was admitted with COPD exacerbation also had alcohol intoxication withdrawal. The patient is being closely monitored at this time. Pulmonary is also following the patient closely. The white count is 4.5, hemoglobin 13.2. Sugars elevated. LFTs also elevated. PAST MEDICAL HISTORY: Reviewed. REVIEW OF SYSTEMS: CARDIOVASCULAR No angina or palpitations. RESPIRATORY As mentioned earlier. GI As mentioned earlier. No dysuria or hematuria. NERVOUS No numbness or weakness. CURRENT MEDICATIONS: Reviewed include albuterol, Norvasc, Symbicort, Librium, hydrocodone, Catapres, Colace, Vibramycin. Doses reviewed. PHYSICAL EXAMINATION: Patient alert and oriented x2. Pulse is 60, blood pressure 130/83, respiration 18, temperature 97.2, pulse ox 98% on room air . HEENT: Conjunctivae normal. Oral mucosa moist. NECK: No jugular venous distention. No lymph node enlargement. CARDIOVASCULAR: S1, S2, muffled. No S3, no S4, RESPIRATORY: Diminished breath sounds at the bases. A few scattered rhonchi and crackles. ABDOMEN: Soft, nontender. LEGS: No edema, no swelling. NERVOUS SYSTEM: No focal deficits. LABS: WBC 4.33, hemoglobin 13.3, glucose 220. AST is 96, ALT is 109. ASSESSMENT: 1. COPD acute exacerbation with acute purulent tracheobronchitis. 2. Alcohol intoxication, alcohol withdrawal. 3. Gait dysfunction. 4. Lactic acidosis. 5. Transaminitis, possibly alcoholic hepatitis. 6. Hypomagnesemia. 7. Alcohol abuse disorder. 8. Diabetes mellitus type 2, non-insulin dependent. 9. Hypertension. 10.History of myocardial infarction. 11.History of DJD. 12.History of seizure disorder. 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 14.Chronic back pain. 15.FULL CODE. 16.Elevated AST ALT. RECOMMENDATIONS AND DISCUSSION: In this 60-year-old woman who presented with multiple complex medical issues, we will monitor the patient closely. Continue the PT/OT. Continue the rest of medications. Continue the bronchodilators. Prognosis guarded because of multiple complex medical issues. Further recommendations to follow otherwise, Lyme titers have been requested. MMODL / IJN: [id number] /
[2020-12-30] MEDS: SYMBICORT 160-4.5 MCG INHALER INHALATION SCH ×2 (07:09→20:55)
[2020-12-30] MEDS: IPRATROPIUM-ALBUTEROL 3 ML NEB INHALATION SCH ×4 (07:09→20:55)
[2020-12-30 07:26] LABS: Glucose,Whole Blood 256 mg/dL (75-99)
[2020-12-30] MEDS: NICOTINE 14MG/24HR PATCH TRANSDERM SCH (07:40)
[2020-12-30] MEDS: INSULIN DETEMIR (LEVEMIR) 100 UNIT/ML SYR SQ SCH (08:33)
[2020-12-30] MEDS: ENOXAPARIN 40 MG/0.4 ML SYRINGE SQ SCH (08:33)
[2020-12-30] MEDS: INSULIN ASPART (NovoLOG) 100 UNIT/ML VIAL SQ SCH ×4 (08:33→21:19)
[2020-12-30] MEDS: chlordiazePOXIDE 25 MG CAP PO SCH ×2 (08:33→12:23)
[2020-12-30] MEDS: GABAPENTIN 300 MG CAP PO SCH ×3 (08:34→21:20)
[2020-12-30] MEDS: METOPROLOL SUCCINATE (ER) 25 MG TAB.ER.24H PO SCH (08:34)
[2020-12-30] MEDS: CHLORTHALIDONE 25 MG TAB PO SCH (08:34)
[2020-12-30] MEDS: amLODIPine 10 MG TAB PO SCH (08:34)
[2020-12-30] MEDS: predniSONE 10 MG TAB PO SCH ×2 (08:34→21:20)
[2020-12-30] MEDS: PANTOPRAZOLE 40 MG TABLET PO SCH (08:34)
[2020-12-30] MEDS: lisinopriL 10 MG TAB PO SCH ×2 (08:34→21:20)
[2020-12-30] MEDS: cloNIDine HCL 0.1 MG TAB PO SCH ×3 (08:34→21:20)
[2020-12-30] MEDS: DOXYCYCLINE 100 MG CAP PO SCH (08:35)
[2020-12-30] MEDS: MAG HYDROX/AL HYDROX/SIMETH 30 ML, LIDOCAINE VISCOUS 30 ML, diphenhydrAMINE ELIXIR 75 M... PO SCH ×12 (08:39→21:25)
[2020-12-30] MEDS: SODIUM CHLORIDE 0.9% 1,000 ML IV SCH (08:40)
[2020-12-30 09:11] LABS: Basophils # (A) 0 X 10*3/uL (0.00-0.10); Basophils % (A) 0 %; Eosinophils # (A) 0.04 X 10*3/uL (0.04-0.35); Eosinophils % (A) 0.9 %; HCT 40.1 % (37.2-46.3); HGB 14.1 g/dL (12.0-15.0); Lymphocytes % (A) 24.6 %; MCH 34.1 pg (27.0-32.0); MCHC 35.2 g/dL (32.0-37.0); MCV 96.9 fL (80.0-97.0); Mean Platelet Volume 10.8 fL (9.5-12.2); Monocytes # (A) 0.43 X 10*3/uL (0.20-1.00); Monocytes % (A) 9.6 %; Neutrophils # (A) 2.89 X 10*3/uL (1.80-7.70); Neutrophils % (A) 64.5 %; Platelet Count 129 X 10*3/uL (140-440); RBC 4.14 X 10*6/uL (4.10-5.20); WBC 4.48 X 10*3/uL (4.50-10.00)
[2020-12-30 10:14] LABS: African American GFR (CKD) 92.9 (60.0-200.0); Albumin 4.1 g/dL (3.80-4.90); Albumin/Globulin Ratio 1.78 (1.60-3.17); Anion Gap 9.3 mmol/L (4.00-12.00); Carbon Dioxide 26.7 mmol/L (21.6-31.8); Globulin 2.3 g/dL (1.6-3.3); Non-African American GFR(CKD) 80.1 (60.0-200.0); Potassium 4.3 mmol/L (3.5-5.5); Total Bilirubin 0.8 mg/dL (0.3-1.2); Total Protein 6.4 g/dL (6.2-8.2)
--- NOTE | 2020-12-30 10:53 | P.PN ---
Subjective Progress Note Date: 12/30/20 Principal diagnosis: COPD exacerbation This is a 60-year-old female patient, who came into the hospital because of worsening shortness of breath. She was progressively getting worse over the past 6 weeks. She is alcoholic. She drinks beer and whiskey. She also smokes one pack of cigarettes a day. Denies having any previous history of pulmonary disease or disorder. No history of asthma. She lives in her house. She has 15 cancer within her house and she has several kittens by been probably defecating and urinating within the home environment.. The patient admits that she is not been living in a clean environment. She comes in to the hospital because of worsening shortness of breath. She was also having some signs of alcohol withdrawal and delirium tremens. Today she is feeling better. She is less short of breath. Her voice is hoarse. She has a congested cough. Unable to bring up much sputum. She still has exertional dyspnea. No nausea. No vomiting. No diarrhea. No chest pain. No hemoptysis. No pleurisy or the patient has other comorbidities including previous history of CVA which has resulted in to some vision changes in her right eye, diabetes mellitus and CAD and previous history of seizure disorder. She is afebrile for now and she is hemodynamically stable. Blood work from the emergency showed a white cell count a white count with hemoglobin 13.9. The serum bicarb was 27 with a sodium level of 137. Glucose 113. Coagulation profile was normal. Serum alcohol was 200 the time of admission. Lactic acid level was at 3.0. Troponin was negative at 0.012 and the proBNP level was 75. COVID-19 testing was negative and the patien t is fully vaccinated. On 12/25/2020 patient seen in follow-up on medical surgical floor. She is awake and alert, oriented 3, denies any acute distress, room air pulse ox is 95%, she states she is breathing comfortably, less wheezy and less congested, lung sounds today reveal some scattered rales, no significant wheezing noted. Patient has been afebrile, she continues on IV steroids, breathing treatments and antibiotics. She continues on CIWA protocol, CIWA scale was 6-7, she states she has a weak, little shaky on her feet. But no complaints of headaches marginal or visual hallucinations, she is pleasant, and cooperative. The patient is seen today 12/26/2020 in follow-up on the medical floor. She is currently sitting up in bed. Awake and alert in no acute distress. Maintaining O2 saturations in the mid 90s on room air. Somewhat teary-eyed today. Anxious regarding a diagnosis of COPD. She remains on IV Solu-Medrol, DuoNeb inhalations, empiric antibiotics. She remains in the CIWA protocol. Required Ativan at 8 AM this morning for a score of 13. Blood glucose 321. The patient is seen today 12/27/2020 in follow-up on the regular medical floor. She is awake and alert in no acute distress. Less teary-eyed today compared to yesterday. Still some anxiety. She is breathing better. Maintaining O2 saturations in the 90s on room air. She's been afebrile. Blood culture reveals no growth to date. Sputum culture is pending. White count 4.2. Hemoglobin 13.2. Platelet count 123. Sodium 134. Potassium 3.4. Creatinine 0.50. AST 56. ALT 53. She remains on Symbicort, DuoNeb inhalations, IV Solu Medrol. Empiric antibiotics the form of doxycycline. Lovenox for DVT prophylaxis. She remains on the CIWA protocol. The patient is seen today 12/28/2020 in follow-up on the regular medical floor. She is sitting up in a chair. Awake and alert in no acute distress. Currently maintaining O2 saturations in the mid 90s. Afebrile. She is less anxious today compared to yesterday. Blood culture reveals no growth. Sputum culture pending. White count 4.0. Hemoglobin 13.8. Sodium 135. Potassium 4.5. Creatinine 0.54. Glucose 248. She remains on Symbicort, DuoNeb inhalations, IV Solu Medrol. Empiric antibiotics the form of doxycycline. Lovenox for DVT prophylaxis. She remains on the CIWA protocol. The plan is to go to [facility] for further rehabilitation. She is agreeable. The patient is seen today 12/29/2020 in follow-up on the regular medical floor. She is awake and alert in no acute distress. She is calm and relaxed. Continue O2 saturations in the 90s on room air. Afebrile. Hemodynamically stable. Blood cultures reveal no growth. Sputum culture no growth. White count 4.5. Hemoglobin 13.3. Sodium 135. Potassium 4.4. Creatinine 0.7. Glucose 220. AST 96. ALT 109. She remains on prednisone, Symbicort, DuoNeb inhalations. NicoDerm patch in place. The patient is seen today 12/30/2020 in follow-up on the regular medical floor. She is currently sitting up in the bedside. Awake and alert in no acute distres s. He is currently maintaining good O2 saturations in the mid 90s on room air. She's afebrile. Hemodynamically stable. Sputum cultures reveal no growth. Blood culture reveals no growth. 4.4. Hemoglobin 14.1. Platelet count 129. Sodium 131. Potassium 4.3. Creatinine 0.8. Glucose 292. Objective - Vital Signs Vital signs: Vital Signs Temp 98.1 F 12/30/20 07:00 Pulse 72 12/30/20 07:42 Resp 16 12/30/20 07:42 BP 141/86 12/30/20 07:00 Pulse Ox 96 12/30/20 07:00 Intake & Output 12/29/20 12/30/20 12/30/20 18:59 06:59 18:59 Intake Total 200 200 Output Total 400 Balance 200 -200 Intake: Oral 200 200 Output: Urine 400 Other: Voiding Method Toilet Toilet Toilet Bedside Commode Bedside Commode Bedside Commode # Voids 1 4 3 - Exam GENERAL EXAM: Alert, anxious, 60-year-old female patient, on room air, comfortable in no apparent distress. HEAD: Normocephalic. EYES: Normal reaction of pupils, equal size. NOSE: Clear with pink turbinates. THROAT: No erythema or exudates. NECK: No masses, no JVD. CHEST: No chest wall deformity. LUNGS: Equal air entry with bilateral end expiratory wheeze, diminished. CVS: S1 and S2 normal with no audible murmur, regular rhythm. ABDOMEN: No hepatosplenomegaly, normal bowel sounds, no guarding or rigidity. SPINE: No scoliosis or deformity SKIN: No rashes CENTRAL NERVOUS SYSTEM: No focal deficits, tone is normal in all 4 extremities. EXTREMITIES: There is no peripheral edema. No clubbing, no cyanosis. Peripheral pulses are intact. - Labs CBC & Chem 7: 12/30/20 06:09 12/30/20 06:09 Labs: Abnormal Lab Results - Last 24 Hours (Table) 12/29/20 12/29/20 12/29/20 Range/Units 11:49 17:20 20:25 WBC (4.50-10.00) X 10*3/uL MCH (27.0-32.0) pg Plt Count (140-440) X 10*3/uL Sodium (135-145) mmol/L Chloride (96-109) mmol/L Glucose (70-110) mg/dL POC Glucose (mg/dL) 280 H 244 H 228 H (75-99) mg/dL AST (13-35) U/L ALT (8-44) U/L Alkaline Phosphatase (41-126) U/L 12/30/20 12/30/20 12/30/20 Range/Units 06:09 06:09 07:24 WBC 4.48 L (4.50-10.00) X 10*3/uL MCH 34.1 H (27.0-32.0) pg Plt Count 129 L (140-440) X 10*3/uL Sodium 131 L (135-145) mmol/L Chloride 95 L (96-109) mmol/L Glucose 292 H (70-110) mg/dL POC Glucose (mg/dL) 256 H (75-99) mg/dL AST 93 H (13-35) U/L ALT 141 H (8-44) U/L Alkaline Phosphatase 37 L (41-126) U/L Microbiology - Last 24 Hours (Table) 12/23/20 16:52 Blood Culture - Final Blood No Growth after 144 hours 12/26/20 12:00 Gram Stain - Final Sputum Sputum Culture - Final Assessment and Plan Assessment: 1 Acute exacerbation of COPD with secondary shortness of breath, recovered 2 Chronic smoker 3 History of alcoholism with signs of early delirium tremens currently stable on CIWA protocol 4 Hypertension 5 Diabetes type 2 6 History of CVA with some right vision impairment 7 Diabetes mellitus 8 Seizure disorder 9 History of skin cancer, with resection, squamous cell carcinoma Plan: The patient was seen and evaluated by Dr. Bailey Complete a prednisone taper Continue DuoNeb inhalations and Symbicort Follow-up in our office in 1-2 weeks' time We'll see as needed I, the cosigning physician, performed a history & physical examination of the patient. Lungs sounds clear, diminished. Maintaining good O2 saturations in the 90s on room air. I discussed the assessment and plan of care with my nurse practitioner, Magui Garza. I attest to the above note as dictated by her.
[2020-12-30 12:02] LABS: Glucose,Whole Blood 212 mg/dL (75-99)
[2020-12-30] MEDS: FOLIC ACID 1 MG TAB PO SCH (12:23)
[2020-12-30] MEDS: MULTIVITAMINS, THERA 1 EACH TAB PO SCH (12:23)
[2020-12-30] MEDS: THIAMINE 100 MG TAB PO SCH (12:23)
[2020-12-30] MEDS ORDERED: IOPAMIDOL CONTRAST (ORAL USE) VIAL PO PRN (14:15)
[2020-12-30] MEDS ORDERED: GLIMEPIRIDE 2 MG TAB PO SCH (14:30)
--- NOTE | 2020-12-30 14:48 | PN ---
PROGRESS NOTE DATE OF SERVICE: 12/30/2020 I am covering for Dr. Thakkar. This 60-year-old woman who was admitted with COPD acute exacerbation also had alcohol intake personal history. The patient is being closely worked up for PT OT evaluation and possible ECF rehab. Blood sugar is elevated at this time. AST ALT still elevated. PAST MEDICAL HISTORY: Reviewed. REVIEW OF SYSTEMS: CARDIOVASCULAR No angina or palpitations. RESPIRATORY No cough, no hemoptysis. GI As mentioned earlier. No dysuria or hematuria. NERVOUS No numbness or weakness. CURRENT MEDICATIONS: Reviewed include nystatin, albuterol, Norvasc, Symbicort, Librium, Hygroton, Carafate. Doses are reviewed. PHYSICAL EXAMINATION: Patient is alert, oriented x3. Pulse 72, blood pressure 141/83, respirations 16, temperature 98.2, pulse ox 97% on room air. HEENT: Conjunctivae normal. Oral mucosa moist. NECK: No jugular venous distention. No lymph node enlargement. CARDIOVASCULAR: S1, S2, muffled. No S3, no S4, RESPIRATORY: Diminished breath sounds at the bases. A few scattered rhonchi. ABDOMEN: Soft. LEGS: No edema, no swelling. NERVOUS SYSTEM: No focal deficits. LABS: Sodium 131. Other labs are noted. LFTs are noted. ASSESSMENT: 1. Chronic obstructive pulmonary disease acute exacerbation with acute purulent tracheobronchitis. 2. Alcohol intoxication, alcohol withdrawal. 3. Acute alcoholic hepatitis with mildly worsening LFTs. 4. Gait dysfunction. 5. Lactic acidosis. 6. Hypomagnesemia. 7. Alcohol abuse disorder. 8. Diabetes mellitus type 2, non-insulin dependent. 9. Hypertension. 10.History of myocardial infarction. 11.History of DJD. 12.History of seizure disorder. 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 14.Gait dysfunction. 15.Chronic back pain. 16.Elevated AST, ALT. 17.FULL CODE. RECOMMENDATIONS AND DISCUSSION: I recommend to continue current medications, continue symptomatic treatment. I would recommend avoid hepatotoxic medications. We will increase the dose of Lantus to 20 units in the morning and monitor blood sugars closely. Otherwise, vitamin supplementation. A small dose of prednisone was also given. I will stop the IV fluids as well. The prognosis guarded. Further recommendations to follow. Repeat labs in the morning. MMODL / IJN: [id number] /
[2020-12-30] MEDS ORDERED: BARIUM SULFATE 450 ML ORAL.SUSP BOTTLE PO PRN (16:09)
[2020-12-30 17:18] LABS: Glucose,Whole Blood 271 mg/dL (75-99)
[2020-12-30] MEDS: GLIMEPIRIDE 2 MG TAB PO SCH (18:03)
[2020-12-30] MEDS: metFORMIN 500 MG TAB PO SCH (18:03)
[2020-12-30 20:55] LABS: Glucose,Whole Blood 196 mg/dL (75-99)
--- NOTE | 2020-12-30 21:07 | CT ---
EXAMINATION TYPE: CT ChestAbdPelvis wo con DATE OF EXAM: 12/30/2020 COMPARISON: 03/10/2018. HISTORY: Elevated LFTs CT DLP: 1338 mGycm. Automated Exposure Control for Dose Reduction was Utilized. TECHNIQUE: CT scan of the thorax, abdomen and pelvis is performed without IV contrast. FINDINGS: LUNGS: The lungs are grossly clear, there is no concerning parenchymal mass or nodule identified. T here is no pleural effusion or pneumothorax seen. The tracheobronchial tree is patent. MEDIASTINUM: There are no greater than 1 cm hilar or mediastinal lymph nodes. No pericardial effusi on is seen. OTHER: No additional significant abnormality is seen. LIVER/GB: No acute abnormality is appreciated. Cholelithiasis without acute cholecystitis. PANCREAS: No significant abnormality is seen. SPLEEN: No significant abnormality is seen. ADRENALS: No significant abnormality is seen. KIDNEYS: No acute abnormality is seen. A 1.5 cm left renal cyst with partial, thin wall calcification in the midpole, stable. BOWEL: No acute abnormality is seen. Prior ventral hernia repair with scarring and subcutaneous soft tissue thickening at the surgical site, stable. GENITAL ORGANS: No gross abnormality seen. LYMPH NODES: No greater than 1cm abdominal or pelvic lymph nodes are appreciated. OSSEOUS STRUCTURES: No significant abnormality is seen. OTHER: No significant additional abnormality is seen. IMPRESSION: No acute abnormality. Cholelithiasis. Stable chronic and incidental findings.
[2020-12-30] MEDS: IBUPROFEN 800 MG TAB PO PRN (22:02)
[2020-12-30 22:29] LABS: African American GFR (CKD) 92.9 (60.0-200.0); Albumin 4.2 g/dL (3.80-4.90); Albumin/Globulin Ratio 1.75 (1.60-3.17); Anion Gap 7.1 mmol/L (4.00-12.00); BUN/Creat Ratio 17.5 Ratio (12.00-20.00); Calcium 10.1 mg/dL (8.7-10.3); Carbon Dioxide 25.9 mmol/L (21.6-31.8); Globulin 2.4 g/dL (1.6-3.3); Non-African American GFR(CKD) 80.1 (60.0-200.0); Potassium 4.6 mmol/L (3.5-5.5); Total Bilirubin 0.8 mg/dL (0.2-1.2); Total Protein 6.6 g/dL (6.2-8.2)
[2020-12-31 07:21] LABS: Glucose,Whole Blood 228 mg/dL (75-99)
[2020-12-31] MEDS: metFORMIN 500 MG TAB PO SCH ×2 (07:37→17:42)
[2020-12-31] MEDS: GABAPENTIN 300 MG CAP PO SCH ×3 (07:37→21:27)
[2020-12-31] MEDS: METOPROLOL SUCCINATE (ER) 25 MG TAB.ER.24H PO SCH (07:37)
[2020-12-31] MEDS: PANTOPRAZOLE 40 MG TABLET PO SCH (07:37)
[2020-12-31] MEDS: amLODIPine 10 MG TAB PO SCH (07:37)
[2020-12-31] MEDS: INSULIN DETEMIR (LEVEMIR) 100 UNIT/ML SYR SQ SCH (07:38)
[2020-12-31] MEDS: ENOXAPARIN 40 MG/0.4 ML SYRINGE SQ SCH (07:38)
[2020-12-31] MEDS: INSULIN ASPART (NovoLOG) 100 UNIT/ML VIAL SQ SCH ×4 (07:38→21:27)
[2020-12-31 07:39] LABS: Basophils % (A) 0 %; Eosinophils # (A) 0.1 k/uL (0-0.7); Eosinophils % (A) 2 %; HCT 40.2 % (34.0-46.0); HGB 14.4 gm/dL (11.4-16.0); Lymphocytes # (A) 1.1 k/uL (1.0-4.8); Lymphocytes % (A) 24 %; MCH 34.7 pg (25.0-35.0); MCHC 35.8 g/dL (31.0-37.0); MCV 96.9 fL (80.0-100.0); Mean Platelet Volume 8.5; Monocytes # (A) 0.4 k/uL (0-1.0); Monocytes % (A) 9 %; Neutrophils # (A) 3.1 k/uL (1.3-7.7); Neutrophils % (A) 65 %; Platelet Count 136 k/uL (150-450); RBC 4.15 m/uL (3.80-5.40); RDW 13.3 % (11.5-15.5); WBC 4.8 k/uL (3.8-10.6)
[2020-12-31] MEDS: GLIMEPIRIDE 2 MG TAB PO SCH (07:39)
[2020-12-31] MEDS: CALCIUM CARB-VIT D 500 MG-5 MCG TAB PO SCH (07:39)
[2020-12-31] MEDS: IBUPROFEN 800 MG TAB PO PRN ×2 (07:39→19:41)
[2020-12-31] MEDS: CHLORTHALIDONE 25 MG TAB PO SCH (07:41)
[2020-12-31] MEDS: MAG HYDROX/AL HYDROX/SIMETH 30 ML, LIDOCAINE VISCOUS 30 ML, diphenhydrAMINE ELIXIR 75 M... PO SCH ×12 (07:43→21:35)
[2020-12-31] MEDS: lisinopriL 10 MG TAB PO SCH ×2 (07:46→21:29)
[2020-12-31] MEDS: IPRATROPIUM-ALBUTEROL 3 ML NEB INHALATION SCH ×4 (08:13→19:24)
[2020-12-31] MEDS: SYMBICORT 160-4.5 MCG INHALER INHALATION SCH ×2 (08:14→19:24)
[2020-12-31] MEDS: predniSONE 10 MG TAB PO SCH ×2 (08:41→21:27)
[2020-12-31] MEDS: cloNIDine HCL 0.1 MG TAB PO SCH ×3 (08:43→21:27)
[2020-12-31] MEDS: NICOTINE 14MG/24HR PATCH TRANSDERM SCH (08:43)
[2020-12-31] MEDS ORDERED: NON FORMULARY DRUG (Multivit With Calcium,Iron,Min [Women's Multivitamin] 1 EACH Tablet) PO SCH (09:00)
[2020-12-31 11:43] LABS: Glucose,Whole Blood 138 mg/dL (75-99)
[2020-12-31] MEDS: MULTIVITAMINS, THERA 1 EACH TAB PO SCH (12:22)
[2020-12-31] MEDS: THIAMINE 100 MG TAB PO SCH (12:22)
[2020-12-31] MEDS: FOLIC ACID 1 MG TAB PO SCH (12:22)
[2020-12-31 12:25] VITALS: BMI 34.8
[2020-12-31] MEDS: DOCUSATE 100 MG CAP PO PRN (12:25)
--- NOTE | 2020-12-31 12:37 | P.PN ---
Subjective Progress Note Date: 12/31/20 Principal diagnosis: Coughing wheezing This is a 60-year-old female patient, who came into the hospital because of worsening shortness of breath. She was progressively getting worse over the past 6 weeks. She is alcoholic. She drinks beer and whiskey. She also smokes one pack of cigarettes a day. Denies having any previous history of pulmonary disease or disorder. No history of asthma. She lives in her house. She has 15 cancer within her house and she has several kittens by been probably defecating and urinating within the home environment.. The patient admits that she is not been living in a clean environment. She comes in to the hospital because of worsening shortness of breath. She was also having some signs of alcohol withdrawal and delirium tremens. Today she is feeling better. She is less short of breath. Her voice is hoarse. She has a congested cough. Unable to bring up much sputum. She still has exertional dyspnea. No nausea. No vomiting. No diarrhea. No chest pain. No hemoptysis. No pleurisy or the patient has other comorbidities including previous history of CVA which has resulted in to some vision changes in her right eye, diabetes mellitus and CAD and previous history of seizure disorder. She is afebrile for now and she is hemodynamically stable. Blood work from the emergency showed a white cell count a white count with hemoglobin 13.9. The serum bicarb was 27 with a sodium level of 137. Glucose 113. Coagulation profile was normal. Serum alcohol was 200 the time of admission. Lactic acid level was at 3.0. Troponin was negative at 0.012 and the proBNP level was 75. COVID-19 testing was negative and the patien t is fully vaccinated. On 12/25/2020 patient seen in follow-up on medical surgical floor. She is awake and alert, oriented 3, denies any acute distress, room air pulse ox is 95%, she states she is breathing comfortably, less wheezy and less congested, lung sounds today reveal some scattered rales, no significant wheezing noted. Patient has been afebrile, she continues on IV steroids, breathing treatments and antibiotics. She continues on CIWA protocol, CIWA scale was 6-7, she states she has a weak, little shaky on her feet. But no complaints of headaches marginal or visual hallucinations, she is pleasant, and cooperative. On 12/31/2020 patient seen in follow-up on medical surgical floor. She is resting comfortably in bed, she is currently on room air, pulse ox is 98%, she states she is feeling better, breathing much easier, occasional cough, no cough but chest discomfort, minimal wheezing on today's exam, no altered mentation, no agitation. No signs of DTs, her last CIWA scale was 0. Patient stated that she did not feel safe returning home related to her overall weakness and difficulty ambulating, she was evaluated for usp facility placement and patient has been accepted to [facility]. Patient's LFTs were elevated and CT of the chest abdomen and pelvis was completed showing clear lungs, no concerning parenchymal mass or nodule, no pleural effusion or pneumothorax, no acute abnormality of the liver or gallbladder, there was cholelithiasis without acute cholecystitis, no acute abnormality of the pancreas, adrenals, spleen or kidneys. Vital signs have been stable. Dr. ney lala, she has been transitioned to oral prednisone from IV steroids, and she is currently on prednisone 10 mg daily Objective - Vital Signs Vital signs: Vital Signs Temp 98.3 F 12/31/20 11:38 Pulse 72 12/31/20 12:08 Resp 18 12/31/20 11:38 BP 113/78 12/31/20 11:38 Pulse Ox 98 12/31/20 11:38 Intake & Output 12/30/20 12/31/20 12/31/20 18:59 06:59 18:59 Intake Total 200 990 Output Total 400 Balance -200 990 Weight 97.976 kg Intake: Oral 200 990 Output: Urine 400 Other: Voiding Method Toilet Toilet Toilet Bedside Commode Bedside Commode Bedside Commode # Voids 2 2 - Exam GENERAL EXAM: Alert, very pleasant 60-year-old white female, on room air, with a pulse ox of 98% comfortable in no apparent distress. HEAD: Normocephalic/atraumatic. EYES: Normal reaction of pupils, equal size. Conjunctiva pink, sclera white. NOSE: Clear with pink turbinates. THROAT: No erythema or exudates. NECK: No masses, no JVD, no thyroid enlargement, no adenopathy. CHEST: No chest wall deformity. Symmetrical expansion. LUNGS: Equal air entry with bilateral crackles, minimal wheezes CVS: Regular rate and rhythm, normal S1 and S2, no gallops, no murmurs, no rubs ABDOMEN: Soft, nontender. No hepatosplenomegaly, normal bowel sounds, no guarding or rigidity. EXTREMITIES: No clubbing, no edema, no cyanosis, 2+ pulses and upper and lower extremities. MUSCULOSKELETAL: Muscle strength and tone normal. SPINE: No scoliosis or deformity SKIN: No rashes CENTRAL NERVOUS SYSTEM: Alert and oriented -3. No focal deficits, tone is normal in all 4 extremities. PSYCHIATRIC: Alert and oriented -3. Appropriate affect. Intact judgment and insight. - Labs CBC & Chem 7: 12/31/20 06:02 12/30/20 15:16 Labs: Abnormal Lab Results - Last 24 Hours (Table) 12/30/20 12/30/20 12/30/20 Range/Units 15:16 17:17 20:52 Plt Count (150-450) k/uL Sodium 128 L (135-145) mmol/L Chloride 95 L (96-109) mmol/L Glucose 214 H (70-110) mg/dL POC Glucose (mg/dL) 271 H 196 H (75-99) mg/dL AST 92 H (13-35) U/L ALT 146 H (8-44) U/L Alkaline Phosphatase 37 L (41-126) U/L 12/31/20 12/31/20 12/31/20 Range/Units 06:02 07:19 11:40 Plt Count 136 L (150-450) k/uL Sodium (135-145) mmol/L Chloride (96-109) mmol/L Glucose (70-110) mg/dL POC Glucose (mg/dL) 228 H 138 H (75-99) mg/dL AST (13-35) U/L ALT (8-44) U/L Alkaline Phosphatase (41-126) U/L Assessment and Plan Plan: Assessment: #1. Acute exacerbation of COPD with secondary shortness of breath #2. Chronic smoker #3. History of alcoholism with signs of early delirium tremens currently stable, with a CIWA scale of 6 and 7 #4. Hypertension #5. Diabetes type 2 #6. History of CVA with some right vision impairment #7. Diabetes mellitus #8. Seizure disorder #9. History of skin cancer, with resection, squamous cell carcinoma Plan: Patient continues to improve Vital signs are stable Breathing has improved She is on room air CIWA scale is 0 No signs of DTs Anticipate discharge to [facility] today Outpatient follow-up with Dr. Bailey in the office in 7-10 days. I performed a history & physical examination of the patient and discussed their management with my nurse practitioner, Maria Del Carmen Jc. I reviewed the nurse practitioner's note and agree with the documented findings and plan of care. Lung sounds are positive for bibasilar crackles. The findings and the impression was discussed with the patient. I attest to the documentation by the nurse practitioner. Time with Patient: Less than 30
--- NOTE | 2020-12-31 15:43 | P.PN ---
Subjective Progress Note Date: 12/31/20 This is a 60-year-old female who was recently admitted with COPD acute exacerbation also has significant alcohol abuse history and is being closely monitored. Patient continues to be weak and has been evaluated by PT/OT therapy recommending subacute rehab for strength and mobility. Patient also mentioned to case management and social work that she feels unsafe returning home and does not have a safe environment to return home to. Social work working on authorization from insurance and accepting facility for continued PT/OT therapy. Pulmonary following and recommended outpatient follow-up in 1-2 weeks upon discharge. Patient has been transitioned oral prednisone and continues on breathing inhalational treatments and will continue. Blood sugars more controlled on current regimen and will continue with sliding scale along with long-acting and monitor Accu-Cheks closely. Review of systems: Constitutional: No reports of fatigue, fever, or chills Cardiovascular: No reports of chest pain or palpitations Respiratory: Reports of intermittent shortness of breath with exertion GI: No reports of nausea, vomiting, or diarrhea : No reports of dysuria or retention Neurovascular: reports of generalized weakness All medications have been reviewed Objective - Vital Signs Vital signs: Vital Signs Temp 97.8 F 12/31/20 04:40 Pulse 68 12/31/20 08:24 Resp 16 12/31/20 08:00 BP 148/85 12/31/20 04:40 Pulse Ox 95 12/31/20 04:40 Intake & Output 12/30/20 12/31/20 12/31/20 18:59 06:59 18:59 Intake Total 200 990 Output Total 400 Balance -200 990 Intake: Oral 200 990 Output: Urine 400 Other: Voiding Method Toilet Toilet Toilet Bedside Commode Bedside Commode Bedside Commode # Voids 2 2 - Exam Gen: This is a 60-year-old female awake, alert and oriented 3, well-developed, well-nourished, obese. Temp is 98.3F, pulse is 66, respirations are 18, blood pressure is 113/78, oxygen saturation is 98% on room air. HEENT: Head is atraumatic, normocephalic. Pupils equal, round. Sclerae is anicteric. NECK: Supple. No JVD. No lymphadenopathy. No thyromegaly. LUNGS: Diminished breath sounds bilaterally with a few scattered rhonchi noted. No intercostal retractions. HEART: S1, S2 are muffled ABDOMEN: Soft. Bowel sounds are present. No masses. No tenderness. EXTREMITIES: No pedal edema. No calf tenderness. NEUROLOGICAL: Patient is awake, alert and oriented x3. Diffusely weak. - Labs CBC & Chem 7: 12/31/20 06:02 12/30/20 15:16 Labs: Abnormal Lab Results - Last 24 Hours (Table) 12/30/20 12/30/20 12/30/20 Range/Units 11:55 15:16 17:17 Plt Count (150-450) k/uL Sodium 128 L (135-145) mmol/L Chloride 95 L (96-109) mmol/L Glucose 214 H (70-110) mg/dL POC Glucose (mg/dL) 212 H 271 H (75-99) mg/dL AST 92 H (13-35) U/L ALT 146 H (8-44) U/L Alkaline Phosphatase 37 L (41-126) U/L 12/30/20 12/31/20 12/31/20 Range/Units 20:52 06:02 07:19 Plt Count 136 L (150-450) k/uL Sodium (135-145) mmol/L Chloride (96-109) mmol/L Glucose (70-110) mg/dL POC Glucose (mg/dL) 196 H 228 H (75-99) mg/dL AST (13-35) U/L ALT (8-44) U/L Alkaline Phosphatase (41-126) U/L 12/31/20 Range/Units 11:40 Plt Count (150-450) k/uL Sodium (135-145) mmol/L Chloride (96-109) mmol/L Glucose (70-110) mg/dL POC Glucose (mg/dL) 138 H (75-99) mg/dL AST (13-35) U/L ALT (8-44) U/L Alkaline Phosphatase (41-126) U/L Assessment and Plan Assessment: Chronic obstructive pulmonary disease, acute exacerbation with acute purulent tracheobronchitis Alcohol intoxication, alcohol withdrawal Acute alcoholic hepatitis with mildly worsening LFTs Gait dysfunction Lactic acidosis Hypomagnesemia alcohol abuse disorder Diabetes mellitus type 2, [id number] Hypertension History of myocardial infarction History of DJD history of seizure disorder history of squamous cell carcinoma of the left forearm gait dysfunction Chronic back pain elevated AST, ALT Full code Medications and discussion: Recommend to continue with current medications and breathing inhalational treatments. Blood sugars more controlled after increasing the long acting and will continue with current medication regimen and oral diabetic agents have been resumed as well. Patient will continue on prednisone 10 mg twice daily and pulmonary following. Follow up with pulmonary the outpatient setting once discharged. She continues to be weak feeling unsafe to return home and was evaluated by PT/OT therapy recommending subacute rehab and awaiting for insurance authorization and accepting facilities. Prognosis is guarded. Possible discharge in 24-48 hours.
[2020-12-31 17:07] LABS: Glucose,Whole Blood 207 mg/dL (75-99)
[2020-12-31 19:44] LABS: Glucose,Whole Blood 140 mg/dL (75-99)
[2021-01-01] MEDS: IBUPROFEN 800 MG TAB PO PRN ×3 (01:14→17:32)
[2021-01-01 06:06] LABS: ALT 122 U/L (4-34); AST 51 U/L (14-36); African American GFR (CKD) >90 (>60 ml/min/1.73 sqM); Albumin 4.2 g/dL (3.5-5.0); Albumin/Globulin Ratio 1.6; Alkaline Phosphatase 41 U/L (38-126); Anion Gap 9 mmol/L; Blood Urea Nitrogen 16 mg/dL (7-17); Calcium 11.3 mg/dL (8.4-10.2); Carbon Dioxide 34 mmol/L (22-30); Chloride 85 mmol/L (98-107); Globulin 2.7 g/dL; Glucose 110 mg/dL (74-99); Magnesium 1.3 mg/dL (1.6-2.3); Non-African American GFR(CKD) 82 (>60 ml/min/1.73 sqM); Potassium 4.1 mmol/L (3.5-5.1); Sodium 128 mmol/L (137-145); Total Bilirubin 1.5 mg/dL (0.2-1.3); Total Protein 6.9 g/dL (6.3-8.2)
[2021-01-01] MEDS ORDERED: Magnesium Replacement Protocol 1 EACH MISC MISCELLANE PRN (06:14)
[2021-01-01 06:22] LABS: Basophils % (A) 0 %; Eosinophils # (A) 0.1 k/uL (0-0.7); Eosinophils % (A) 1 %; HCT 47.7 % (34.0-46.0); HGB 15.9 gm/dL (11.4-16.0); Lymphocytes # (A) 1.4 k/uL (1.0-4.8); Lymphocytes % (A) 13 %; MCH 32.9 pg (25.0-35.0); MCHC 33.3 g/dL (31.0-37.0); MCV 98.7 fL (80.0-100.0); Mean Platelet Volume 8.5; Monocytes # (A) 0.6 k/uL (0-1.0); Monocytes % (A) 6 %; Neutrophils # (A) 8.2 k/uL (1.3-7.7); Neutrophils % (A) 79 %; Platelet Count 165 k/uL (150-450); RBC 4.83 m/uL (3.80-5.40); WBC 10.4 k/uL (3.8-10.6)
[2021-01-01 07:23] LABS: Glucose,Whole Blood 144 mg/dL (75-99)
[2021-01-01] MEDS: IPRATROPIUM-ALBUTEROL 3 ML NEB INHALATION SCH ×3 (07:29→15:31)
[2021-01-01] MEDS: SYMBICORT 160-4.5 MCG INHALER INHALATION SCH ×2 (07:29→07:32)
[2021-01-01] MEDS ORDERED: LACTULOSE 20 GM/30 ML CUP PO ONE (07:35)
[2021-01-01] MEDS ORDERED: SODIUM CHLORIDE 0.9% 1,000 ML IV SCH (08:00)
[2021-01-01] MEDS: GABAPENTIN 300 MG CAP PO SCH ×2 (08:09→17:28)
[2021-01-01] MEDS: METOPROLOL SUCCINATE (ER) 25 MG TAB.ER.24H PO SCH (08:09)
[2021-01-01] MEDS: PANTOPRAZOLE 40 MG TABLET PO SCH (08:09)
[2021-01-01] MEDS: GLIMEPIRIDE 2 MG TAB PO SCH (08:10)
[2021-01-01] MEDS: amLODIPine 10 MG TAB PO SCH (08:10)
[2021-01-01] MEDS: lisinopriL 10 MG TAB PO SCH ×2 (08:10→08:19)
[2021-01-01] MEDS: CALCIUM CARB-VIT D 500 MG-5 MCG TAB PO SCH (08:10)
[2021-01-01] MEDS: metFORMIN 500 MG TAB PO SCH ×2 (08:10→17:29)
[2021-01-01] MEDS: cloNIDine HCL 0.1 MG TAB PO SCH ×2 (08:11→17:29)
[2021-01-01] MEDS: predniSONE 10 MG TAB PO SCH (08:11)
[2021-01-01] MEDS: MAGNESIUM SULFATE-D5W PMX 1 GM in DEXTROSE/WATER 1 100ML.BAG IVPB SCH ×3 (08:11→12:22)
[2021-01-01] MEDS: ENOXAPARIN 40 MG/0.4 ML SYRINGE SQ SCH (08:12)
[2021-01-01] MEDS: CHLORTHALIDONE 25 MG TAB PO SCH (08:12)
[2021-01-01] MEDS: MAG HYDROX/AL HYDROX/SIMETH 30 ML, LIDOCAINE VISCOUS 30 ML, diphenhydrAMINE ELIXIR 75 M... PO SCH ×8 (08:13→17:32)
[2021-01-01] MEDS: NICOTINE 14MG/24HR PATCH TRANSDERM SCH (08:13)
[2021-01-01] MEDS: INSULIN ASPART (NovoLOG) 100 UNIT/ML VIAL SQ SCH ×3 (09:05→17:29)
[2021-01-01] MEDS: INSULIN DETEMIR (LEVEMIR) 100 UNIT/ML SYR SQ SCH (09:06)
[2021-01-01 11:35] LABS: Glucose,Whole Blood 252 mg/dL (75-99)
[2021-01-01] MEDS ORDERED: MAGNESIUM OXIDE 400 MG TAB PO STA (11:36)
[2021-01-01 12:18] VITALS: BP 107/73; RESP 18; TEMP 97.5
[2021-01-01] MEDS: MULTIVITAMINS, THERA 1 EACH TAB PO SCH (13:09)
[2021-01-01] MEDS: THIAMINE 100 MG TAB PO SCH ×2 (13:09→13:10)
[2021-01-01] MEDS: FOLIC ACID 1 MG TAB PO SCH (13:09)
[2021-01-01 15:48] VITALS: PULSE 71
[2021-01-01 17:10] LABS: Glucose,Whole Blood 139 mg/dL (75-99)
[2021-01-01] MEDS: DOCUSATE 100 MG CAP PO PRN (17:28)
--- NOTE | 2021-01-01 19:46 | P.DS ---
Providers Date of admission: 12/24/20 11:16 Expected date of discharge: 01/01/21 Attending physician: Alfredo Thakkar Consults: 12/23/20 15:30 Consult Physician Urgent Consulting Provider: Elie Banks Reason/Comments: shortness of breath, congestion Do you want consulting provider notified?: Yes Primary care physician: Alfredo Thakkar Hospital Course: 60-year-old female with past medical history of COPD. diabetes mellitus, hypertension, alcohol abuse, congestive heart failure unspecified was admitted to the hospital with difficulty in breathing and alcohol withdrawal. Patient has lengthy history of noncompliance with medical treatment plan and dependence with alcohol and nicotine. Patient was treated with corticosteroids and [id number] breathing treatments for COPD exacerbation. Alcohol withdrawal patient was placed on alcohol withdrawal protocol; no DTs or tremors noted upon discharge. Hypertension was treated with multiple antihypertensive medications for reduction in blood pressure. Patient will be discharged with home care, and close follow-up with primary care one to 2 days. Constitutional General appearance: Present: disheveled - EENT Eyes: Present: edentulous, PERRLA Ears: bilateral: normal - Neck Neck: Present: normal ROM Carotids: bilateral: upstroke normal - Respiratory Respiratory: bilateral: CTA (Anterior and posterior lung lara) - Cardiovascular Heart rate: 74 Rhythm: regular Heart sounds: normal: S1, S2 - Peripheral pulses radial pulse Peripheral Pulses: bilateral: Normal dorsalis pedis Peripheral Pulses: bilateral: Normal - Gastrointestinal General gastrointestinal: Present: normal bowel sounds - Integumentary Integumentary: Present: normal turgor - Neurologic Neurologic: Present: CNII-XII intact - Musculoskeletal Musculoskeletal: Present: gait normal - Psychiatric Psychiatric: Present: A&O x's 3 Assessment: COPD exacerbation Alcohol intoxicationWith alcohol withdrawal Lactic acidosis Transaminitis-possibly alcohol related Low magnesium Alcohol abuse disorder Diabetes mellitus type 2 [id number] Hypertension History of myocardial infarction Osteoarthritis Seizure disorder History of squamous cell cancer of left forearm Chronic back pain Full code Health Concerns: Poor medical compliance alcoholism nicotine abuse mild cognitive impairment Pertinent Studies: Serial chest x-rays, Consistent with COPD echocardiogram with normal ejection fraction [address] of the chest abdomen and pelvis Procedures: No procedures performed during hospital stay Patient Condition at Discharge: Fair Plan - Discharge Summary Discharge Rx Participant: No New Discharge Prescriptions: New cloNIDine HCL [Catapres] 0.1 mg PO TID #90 tab Chlorthalidone [Hygroton] 50 mg PO DAILY #30 tab amLODIPine [Norvasc] 10 mg PO DAILY #30 tab Docusate [Colace] 100 mg PO DAILY PRN #30 cap PRN Reason: Constipation Folic Acid 1 mg PO DAILY@1200 #30 tab Budesonide-Formot 160-4.5 Mcg [Symbicort 160-4.5 Mcg Inhaler] 2 puff INHALATION RT-BID #60 puff Thiamine [Vitamin B-1] 100 mg PO DAILY@1200 #30 tab lisinopriL [Zestril] 10 mg PO BID tab Continue Metoprolol Tartrate [Lopressor] 25 mg PO BID Multivit with Calcium,Iron,Min [Women's Multivitamin] 1 tab PO DAILY metFORMIN HCL [Glucophage] 500 mg PO BID Calcium Carbonate/Vitamin D3 [Calcium 600-D3 20 mcg (800 Unit)] 1 tab PO DAILY Melatonin 5 mg PO HS Omeprazole 20 mg PO DAILY Glimepiride [Amaryl] 2 mg PO DAILY #30 tab diphenhydrAMINE [Benadryl] 25 mg PO HS PRN PRN Reason: Insomnia traZODone HCL 150 mg PO HS Discharge Medication List Metoprolol Tartrate [Lopressor] 25 mg PO BID 03/17/19 [History] Multivit with Calcium,Iron,Min [Women's Multivitamin] 1 tab PO DAILY 05/18/19 [History] Calcium Carbonate/Vitamin D3 [Calcium 600-D3 20 mcg (800 Unit)] 1 tab PO DAILY 08/31/20 [History] metFORMIN HCL [Glucophage] 500 mg PO BID 08/31/20 [History] Melatonin 5 mg PO HS 10/08/20 [History] diphenhydrAMINE [Benadryl] 25 mg PO HS PRN 10/08/20 [History] Omeprazole 20 mg PO DAILY 12/23/20 [History] traZODone HCL 150 mg PO HS 12/23/20 [History] Budesonide-Formot 160-4.5 Mcg [Symbicort 160-4.5 Mcg Inhaler] 2 puff INHALATION RT-BID #60 puff 01/01/21 [Rx] Chlorthalidone [Hygroton] 50 mg PO DAILY #30 tab 01/01/21 [Rx] Docusate [Colace] 100 mg PO DAILY PRN #30 cap 01/01/21 [Rx] Folic Acid 1 mg PO DAILY@1200 #30 tab 01/01/21 [Rx] Glimepiride [Amaryl] 2 mg PO DAILY #30 tab 01/01/21 [Rx] Thiamine [Vitamin B-1] 100 mg PO DAILY@1200 #30 tab 01/01/21 [Rx] amLODIPine [Norvasc] 10 mg PO DAILY #30 tab 01/01/21 [Rx] cloNIDine HCL [Catapres] 0.1 mg PO TID #90 tab 01/01/21 [Rx] lisinopriL [Zestril] 10 mg PO BID tab 01/01/21 [Rx] Follow up Appointment(s)/Referral(s): Alfredo Thakkar MD [Primary Care Provider] - 01/03/21 11:00 am (office closed at time of discharge. call in am to make appt.) Alvarado Lawson MD [STAFF PHYSICIAN] - 1 Week (office closed at time of discharge. call in am to make appt.) Ranjeet Bailey MD [STAFF PHYSICIAN] - 10 Days (office closed at time of discharge. call in am to make appt.) Patient Instructions/Handouts: Clonidine (By mouth), Thiamine (By mouth), Folic Acid (By mouth), Laxative, Stool Softeners (By mouth), Chlorthalidone (By mouth), Amlodipine (By mouth), Glimepiride (By mouth), Budesonide/Formoterol (By breathing) Activity/Diet/Wound Care/Special Instructions: [facility] - [phone] Discharge Disposition: HOME WITH HOME HEALTH SERVICES
== END 2021-01-01 19:31 | disposition home health service (06) | DRG 191 ==
LOC: EC 21:48 → 6NMEDSUR 12-23 00:47 → OBSVTOIN 12-24 11:16 → 5NMEDONC 12-30 20:05
PROVIDERS: ADMIT Family Medicine; ATTEND Family Medicine
DX: J44.1 Chronic obstructive pulmonary disease with (acute) exacerbation (principal); E87.2 Acidosis; F10.231 Alcohol dependence with withdrawal delirium; E11.9 Type 2 diabetes mellitus without complications; I11.0 Hypertensive heart disease with heart failure; I50.9 Heart failure, unspecified; Z80.3 Family history of malignant neoplasm of breast; E83.42 Hypomagnesemia; I25.2 Old myocardial infarction; M19.90 Unspecified osteoarthritis, unspecified site; G40.909 Epilepsy, unspecified, not intractable, without status epilepticus; Z85.828 Personal history of other malignant neoplasm of skin; Z20.822 Contact with and (suspected) exposure to COVID-19; G89.29 Other chronic pain; E66.9 Obesity, unspecified; Z68.34 Body mass index [BMI] 34.0-34.9, adult; F17.210 Nicotine dependence, cigarettes, uncomplicated; Z91.19 Patient's noncompliance with other medical treatment and regimen; K70.10 Alcoholic hepatitis without ascites; R26.9 Unspecified abnormalities of gait and mobility; Z79.84 Long term (current) use of oral hypoglycemic drugs; I25.10 Atherosclerotic heart disease of native coronary artery without angina pectoris; F10.229 Alcohol dependence with intoxication, unspecified; I69.312 Visuospatial deficit and spatial neglect following cerebral infarction; J30.2 Other seasonal allergic rhinitis; F32.9 Major depressive disorder, single episode, unspecified; R32 Unspecified urinary incontinence; Y90.7 Blood alcohol level of 200-239 mg/100 ml; Z79.899 Other long term (current) drug therapy
CPT/HCPCS: 36415; 71045; 71046; 71250; 74176; 80053; 80061; 80320; 83036; 83605; 83735; 83880; 84484; 84550; 85025; 85610; 85730; 86618; 87040; 87070; 87205; 87635; 93005; 93306; 94640; 94760; 99285

== ENCOUNTER → 2021-03-27 | Outpatient (CLI) | payer MEDICARE ==
[2021-03-27 14:34] LABS: Amorphous Sediment,Urine Occasional /hpf; Appearance,Urine Turbid (Clear); Bacteria,Urine Moderate /hpf; Bilirubin,Urine Negative (Negative); Blood,Urine Negative (Negative); Color,Urine Yellow; Glucose,Urine (UA) Negative (Negative); Ketones,Urine Negative (Negative); Leukocyte Esterase,Urine Large (Negative); Mucus,Urine Occasional /hpf; Nitrite,Urine Negative (Negative); Protein,Urine Trace (Negative); RBC,Urine 1 /hpf (0-5); Specific Gravity,Urine 1.014 (1.001-1.035); Squamous Epithelial Cell,Urine 3 /hpf (0-4); WBC,Urine 80 /hpf (0-5)
[2021-03-27 20:04] LABS: Basophils # (A) 0.03 X 10*3/uL (0.00-0.10); Basophils % (A) 0.5 %; Eosinophils # (A) 0.06 X 10*3/uL (0.04-0.35); HCT 38.5 % (37.2-46.3); HGB 13.1 g/dL (12.0-15.0); Lymphocytes # (A) 1.86 X 10*3/uL (0.90-5.00); Lymphocytes % (A) 31.8 %; MCH 33.3 pg (27.0-32.0); Mean Platelet Volume 10.1 fL (9.5-12.2); Monocytes # (A) 0.52 X 10*3/uL (0.20-1.00); Monocytes % (A) 8.9 %; Neutrophils # (A) 3.36 X 10*3/uL (1.80-7.70); Neutrophils % (A) 57.5 %; Platelet Count 204 X 10*3/uL (140-440); RBC 3.93 X 10*6/uL (4.10-5.20); RDW 13.2 % (11.5-14.5); WBC 5.85 X 10*3/uL (4.50-10.00)
[2021-03-27 23:11] LABS: Hemoglobin A1C 4.7 % (4.0-6.0)
[2021-03-28 10:24] LABS: African American GFR (CKD) 109.1 (60.0-200.0); Albumin 4.7 g/dL (3.80-4.90); Albumin/Globulin Ratio 1.81 (1.60-3.17); Anion Gap 12.6 mmol/L (4.00-12.00); Calcium 10.3 mg/dL (8.7-10.3); Carbon Dioxide 31.4 mmol/L (21.6-31.8); Globulin 2.6 g/dL (1.6-3.3); Non-African American GFR(CKD) 94.2 (60.0-200.0); Potassium 3.6 mmol/L (3.5-5.5); Total Bilirubin 1.1 mg/dL (0.3-1.2); Total Protein 7.3 g/dL (6.2-8.2)
[2021-03-28 10:29] LABS: Protein, Total 7.3 g/dL (6.2-8.2)
[2021-03-28 13:38] LABS: Albumin 4.27 g/dL (3.80-4.90); Gamma Globulin 1.1 g/dL (0.70-1.50)
== END | disposition home or self-care (01) ==
LOC: LABWHC1 11:05
PROVIDERS: ATTEND Psychiatry & Neurology Pain Medicine
DX: M79.2 Neuralgia and neuritis, unspecified (principal)
CPT/HCPCS: 36415; 80053; 81001; 83036; 83519; 83921; 84165; 85025

== ENCOUNTER 2021-05-20 23:21 | Inpatient (IN) | payer MEDICARE ==
[2021-05-20 23:40] VITALS: RESP 18
[2021-05-21 02:58] VITALS: TEMP 97.8
[2021-05-21 05:33] LABS: Appearance,Urine Cloudy (Clear); Bacteria,Urine Many /hpf; Bilirubin,Urine Negative (Negative); Blood,Urine Negative (Negative); Color,Urine Yellow; Glucose,Urine (UA) Negative (Negative); Ketones,Urine Negative (Negative); Leukocyte Esterase,Urine Negative (Negative); Mucus,Urine Rare /hpf; Nitrite,Urine Negative (Negative); Protein,Urine Trace (Negative); Specific Gravity,Urine 1.007 (1.001-1.035); Squamous Epithelial Cell,Urine 1 /hpf (0-4); Urobilinogen,Urine <2.0 mg/dL (<2.0); WBC,Urine 1 /hpf (0-5)
[2021-05-21 06:05] LABS: ALT 36 U/L (4-34); AST 49 U/L (14-36); African American GFR (CKD) >90 (>60 ml/min/1.73 sqM); Albumin 3.8 g/dL (3.5-5.0); Alkaline Phosphatase 24 U/L (38-126); Anion Gap 14 mmol/L; Blood Urea Nitrogen 10 mg/dL (7-17); Carbon Dioxide 23 mmol/L (22-30); Chloride 96 mmol/L (98-107); Glucose 204 mg/dL (74-99); Magnesium 1.5 mg/dL (1.6-2.3); Non-African American GFR(CKD) >90 (>60 ml/min/1.73 sqM); Potassium 3.8 mmol/L (3.5-5.1); Sodium 133 mmol/L (137-145); Total Bilirubin 0.7 mg/dL (0.2-1.3); Total Protein 6.5 g/dL (6.3-8.2)
[2021-05-21 06:18] LABS: Alcohol 231 mg/dL
[2021-05-21] MEDS ORDERED: MAGNESIUM SULFATE-D5W PMX 1 GM in DEXTROSE/WATER 1 100ML.BAG IVPB ONE (06:46)
[2021-05-21] MEDS ORDERED: THIAMINE 100 MG/ML 2 ML VIAL IM STA (07:17)
[2021-05-21] MEDS ORDERED: NALOXONE 0.4 MG/ML 1 ML VIAL IV PRN (07:21)
[2021-05-21] MEDS ORDERED: ONDANSETRON 4 MG/2 ML VIAL IVP PRN (07:21)
[2021-05-21] MEDS ORDERED: LORazepam 2 MG/ML INJ IV PRN ×3 (07:24)
--- NOTE | 2021-05-21 07:35 | ED ---
General Adult HPI - General Chief complaint: Alcohol Stated complaint: Fall Time Seen by Provider: 05/20/21 23:24 Source: patient, EMS Mode of arrival: EMS Limitations: no limitations - History of Present Illness Initial comments: Patient is a 60-year-old woman with history of polyneuropathy who presents with complaint that her symptoms are worsening and now she is not able to walk. Patient states she usually sees Dr. Cody management of her symptoms but it doesn't seem any treatment is working. Patient does admit to be much daily drinking. Patient also has history of diabetes. -: month(s) Location: left, right, upper extremity, lower extremity Radiation: extremity Quality: burning, aching Consistency: constant Improves with: none Worsens with: none Associated Symptoms: weakness Treatments Prior to Arrival: none - Related Data Home Medications Medication Instructions Recorded Confirmed Metoprolol Tartrate [Lopressor] 25 mg PO BID 03/17/19 12/23/20 Multivit with Calcium,Iron,Min 1 tab PO DAILY 05/18/19 12/23/20 [Women's Multivitamin] Calcium Carbonate/Vitamin D3 1 tab PO DAILY 08/31/20 12/23/20 [Calcium 600-D3 20 mcg (800 Unit)] metFORMIN HCL [Glucophage] 500 mg PO BID 08/31/20 12/23/20 Melatonin 5 mg PO HS 10/08/20 12/23/20 diphenhydrAMINE [Benadryl] 25 mg PO HS PRN 10/08/20 12/23/20 Omeprazole 20 mg PO DAILY 12/23/20 12/23/20 traZODone HCL 150 mg PO HS 12/23/20 12/23/20 Previous Rx's Medication Instructions Recorded Budesonide-Formot 160-4.5 Mcg 2 puff INHALATION RT-BID #60 puff 01/01/21 [Symbicort 160-4.5 Mcg Inhaler] Chlorthalidone [Hygroton] 50 mg PO DAILY #30 tab 01/01/21 Docusate [Colace] 100 mg PO DAILY PRN #30 cap 01/01/21 Folic Acid 1 mg PO DAILY@1200 #30 tab 01/01/21 Glimepiride [Amaryl] 2 mg PO DAILY #30 tab 01/01/21 Thiamine [Vitamin B-1] 100 mg PO DAILY@1200 #30 tab 01/01/21 amLODIPine [Norvasc] 10 mg PO DAILY #30 tab 01/01/21 cloNIDine HCL [Catapres] 0.1 mg PO TID #90 tab 01/01/21 lisinopriL [Zestril] 10 mg PO BID tab 01/01/21 Allergies Allergy/AdvReac Type Severity Reaction Status Date / Time azithromycin [From Zithromax] Allergy "had very Verified 12/23/20 08:56 bad thrush" Iodinated Contrast Media Allergy Anaphylaxis- Verified 12/23/20 08:56 [Iodinated Contrast Media - Lungs IV Dye] filled up with fluid shellfish derived [Shellfish] Allergy Swelling, Verified 12/23/20 08:56 NAUSEA pregabalin [From Lyrica] AdvReac Nausea & Verified 12/23/20 08:56 Vomiting, dizziness Review of Systems ROS Statement: Those systems with pertinent positive or pertinent negative responses have been documented in the HPI. ROS Other: All systems not noted in ROS Statement are negative. Constitutional: Denies: fever, chills Respiratory: Denies: cough, dyspnea Cardiovascular: Denies: chest pain, palpitations Gastrointestinal: Denies: abdominal pain, nausea, vomiting, diarrhea, constipation Genitourinary: Denies: dysuria, hematuria Musculoskeletal: Denies: back pain Skin: Denies: rash Neurological: Reports: weakness, numbness, paresthesias. Denies: headache Past Medical History Past Medical History: Cancer, Heart Failure, CVA/TIA, Diabetes Mellitus, Hypertension, Myocardial Infarction ([place]), Osteoarthritis (OA), Seizure Disorder Additional Past Medical History / Comment(s): difficulty swallowing, ETOH abuse Hx, chronic back pain, neuropathy lower extremities, R foot ulcer 2015, abdominal wound 2011 (states hernia surgery), CVA 2002 affected rt eye vision now resolved, still has numbness rt hand 4-5th fingers, hx TIA's, concussion from fall 2010, balance issues, Hx of tx for TB at 5 yrs old, [place] per EKG, seizure history from etoh-yrs ago, spot on liver, Hx rib fractures & L ankle fracture., hx squamous cell cancer left forearm, current skin ca rt arm, Last Myocardial Infarction Date:: 2014 per EKG History of Any Multi-Drug Resistant Organisms: None Reported Date of last positivie culture/infection: None MDRO Source:: None Past Surgical History: Section, Hernia Repair, Orthopedic Surgery, Tonsillectomy Additional Past Surgical History / Comment(s): Ventral hernia repair x 4, Section X2, debridements of R foot and abdomen, colonoscopy, laparoscopy, seromas x 2 drained, ganglion cysts, left squamous cell ca removed, cataracts, EGD Past Anesthesia/Blood Transfusion Reactions: No Reported Reaction, Motion Sickness Past Psychological History: Anxiety, Depression Smoking Status: Current every day smoker Past Alcohol Use History: Abuse, Daily, Heavy Past Drug Use History: Marijuana - Past Family History Father Family Medical History: No Reported History Additional Family Medical History / Comment(s): . Mother Family Medical History: Cancer Additional Family Medical History / Comment(s): Mother at age 65 from breast cancer/bone. Brother(s) Additional Family Medical History / Comment(s): Patient has 1 brother that from a motor vehicle accident involving alcohol. Patient has no sisters. Patient has 1 son 21 years old and one daughter 23 years old and she has no contact with her children. General Exam Limitations: no limitations General appearance: alert, in no apparent distress, appears intoxicated Head exam: Present: atraumatic Eye exam: Present: normal appearance, PERRL, EOMI, nystagmus. Absent: scleral icterus, conjunctival injection ENT exam: Present: mucous membranes dry Neck exam: Present: normal inspection, full ROM Respiratory exam: Present: normal lung sounds bilaterally. Absent: respiratory distress, wheezes, rales, rhonchi, stridor Cardiovascular Exam: Present: regular rate, normal rhythm, normal heart sounds. Absent: systolic murmur, diastolic murmur, rubs, gallop GI/Abdominal exam: Present: soft. Absent: distended, tenderness, guarding, rebound Extremities exam: Present: normal inspection, normal capillary refill. Absent: pedal edema, calf tenderness Back exam: Present: normal inspection Neurological exam: Present: alert, oriented X3, motor sensory deficit, other (Patient has bilateral weakness lower extremities, still 4/5.) Skin exam: Present: warm, dry, intact, normal color. Absent: rash Course Vital Signs 05/20/21 05/21/21 05/21/21 23:22 00:00 01:00 Temperature 97.9 F 97.8 F Pulse Rate 71 78 70 Respiratory 18 18 18 Rate Blood Pressure 108/61 116/64 132/67 O2 Sat by Pulse 93 L 94 L 93 L Oximetry 05/21/21 05/21/21 04:00 07:00 Temperature Pulse Rate 74 71 Respiratory 18 18 Rate Blood Pressure 124/59 135/91 O2 Sat by Pulse 98 97 Oximetry Medical Decision Making - Lab Data Result diagrams: 05/21/21 05:43 Lab Results 05/21/21 05/21/21 05/21/21 Range/Units 05:13 05:43 05:43 Sodium 133 L (137-145) mmol/L Potassium 3.8 (3.5-5.1) mmol/L Chloride 96 L (98-107) mmol/L Carbon Dioxide 23 (22-30) mmol/L Anion Gap 14 mmol/L BUN 10 (7-17) mg/dL Creatinine 0.63 (0.52-1.04) mg/dL Est GFR (CKD-EPI)AfAm >90 (>60 ml/min/1.73 sqM) Est GFR (CKD-EPI)NonAf >90 (>60 ml/min/1.73 sqM) Glucose 204 H (74-99) mg/dL Calcium 10.0 (8.4-10.2) mg/dL Magnesium 1.5 L (1.6-2.3) mg/dL Total Bilirubin 0.7 (0.2-1.3) mg/dL AST 49 H (14-36) U/L ALT 36 H (4-34) U/L Alkaline Phosphatase 24 L (38-126) U/L Troponin I <0.012 (0.000-0.034) ng/mL Total Protein 6.5 (6.3-8.2) g/dL Albumin 3.8 (3.5-5.0) g/dL Urine Color Yellow Urine Appearance Cloudy H (Clear) Urine pH 6.0 (5.0-8.0) Ur Specific Kimberly 1.007 (1.001-1.035) Urine Protein Trace H (Negative) Urine Glucose (UA) Negative (Negative) Urine Ketones Negative (Negative) Urine Blood Negative (Negative) Urine Nitrite Negative (Negative) Urine Bilirubin Negative (Negative) Urine Urobilinogen <2.0 (<2.0) mg/dL Ur Leukocyte Esterase Negative (Negative) Urine WBC 1 (0-5) /hpf Ur Squamous Epith Cells 1 (0-4) /hpf Urine Bacteria Many H (None) /hpf Urine Mucus Rare H (None) /hpf Serum Alcohol 231 H* mg/dL Disposition Clinical Impression: Alcohol abuse, Hypomagnesemia, Polyneuropathy, Inability to walk Disposition: ADMITTED IP TO THIS HOSP Condition: Fair Referrals: Rl Ellis DO [Primary Care Provider] - 1-2 days
[2021-05-21] MEDS ORDERED: DOCUSATE 100 MG CAP PO PRN (07:36)
[2021-05-21] MEDS ORDERED: MAGNESIUM OXIDE 400 MG TAB PO STA (07:38)
[2021-05-21] MEDS ORDERED: SYMBICORT 160-4.5 MCG INHALER INHALATION SCH (08:00)
[2021-05-21] MEDS ORDERED: METOPROLOL TARTRATE 25 MG TAB PO SCH (09:00)
[2021-05-21] MEDS ORDERED: FAMOTIDINE 20 MG TAB PO SCH (09:00)
[2021-05-21] MEDS ORDERED: GLIMEPIRIDE 2 MG TAB PO SCH (09:00)
[2021-05-21] MEDS ORDERED: cloNIDine HCL 0.1 MG TAB PO SCH (09:00)
[2021-05-21] MEDS ORDERED: CALCIUM CARB-VIT D 500 MG-5 MCG TAB PO SCH (09:00)
[2021-05-21] MEDS ORDERED: MULTIVITAMINS, THERA 1 EACH TAB PO SCH (09:00)
[2021-05-21] MEDS ORDERED: CHLORTHALIDONE 25 MG TAB PO SCH (09:00)
[2021-05-21] MEDS ORDERED: amLODIPine 10 MG TAB PO SCH (09:00)
[2021-05-21] MEDS ORDERED: PANTOPRAZOLE 40 MG TABLET PO SCH (09:00)
[2021-05-21] MEDS ORDERED: metFORMIN 500 MG TAB PO SCH (09:00)
[2021-05-21] MEDS ORDERED: lisinopriL 10 MG TAB PO SCH (09:00)
[2021-05-21 10:32] VITALS: BP 186/101; PULSE 94
--- NOTE | 2021-05-21 11:11 | P.CNNES ---
History of Present Illness Consult date: 05/21/21 Requesting physician: Rangel Henriquez Reason for Consult: polyneuropathy History of Present Illness: This is a 60-year-old woman with medical history of diabetes, polyneuropathy (for 20 years), chronic alcohol, chronic low back pain use who presented to the emergency department on 05/21/2021 because of the her worsening of his polyneuropathy and he's not able to walk. Patient stated that he follows up with Dr. Cody's team for his management of his polyneuropathy but he does not notice any improvement. She consumes alcohol daily on a daily basis and drink about 1 pint a daily for years. She said that her neuropathy initially started in her feet then ascended all the way to bilateral legs and she feels its anna ateral lower extremity that she is having neuropathy as well as both her hands and forearms and she had it for 20 years but has worsened the since December 2020. She said that because of her pain as she uses a cane. She denies any focal weakness, visual disturbance, difficulty swallowing. She said that she has chronic lower back pain and she was told that she has disc herniation by her neurologist and she needs ablation. Patient stated that she tried gabapentin in the past and she was tried initially at 300 mg 1 tablet twice a day and went up to 450 [place] 1 tablet possibly 3 times a day but she has side effects of gain weight so she stopped that. She also tried Lyrica in the past and was ALLERGIC to it but could not tell me her ALLERGY. She is on Cymbalta 30 mg at bedtime area and she is also on folic acid 0.4 mg daily as well as she stated that she is on vitamin B12. According to the patient she had EMG with nerve conduction study by her neurologist revealed polyneuropathy according to her. She never had lumbar puncture. Some of the workup in the hospital consisted of: Initial vital signs his blood pressure of 108/61, heart rate of 71, respiratory of 18, temperature of 97.9 oral and pulse ox of 93% room air. Sodium is 133, creatinine is 0.63, glucose is 204, magnesium is 1.5, thousand 7.0, AST of 49, ALT of 36. Serum alcohol level is 231. Coronavirus PCR was not detected. Review of Systems Review of system: The 12 point system was reviewed and apparent positive and negative per HPI. Past Medical History Past Medical History: Cancer, Heart Failure, CVA/TIA, Diabetes Mellitus, Hy pertension, Myocardial Infarction ([place]), Osteoarthritis (OA), Seizure Disorder Additional Past Medical History / Comment(s): difficulty swallowing, ETOH abuse Hx, chronic back pain, neuropathy lower extremities, R foot ulcer 2015, abdominal wound 2011 (states hernia surgery), CVA 2002 affected rt eye vision now resolved, still has numbness rt hand 4-5th fingers, hx TIA's, concussion from fall 2010, balance issues, Hx of tx for TB at 5 yrs old, [place] per EKG, seizure history from etoh-yrs ago, spot on liver, Hx rib fractures & L ankle fracture., hx squamous cell cancer left forearm, current skin ca rt arm, Last Myocardial Infarction Date:: 2014 per EKG History of Any Multi-Drug Resistant Organisms: None Reported Date of last positivie culture/infection: None MDRO Source:: None Past Surgical History: Section, Hernia Repair, Orthopedic Surgery, Tonsillectomy Additional Past Surgical History / Comment(s): Ventral hernia repair x 4, Section X2, debridements of R foot and abdomen, colonoscopy, laparo scopy, seromas x 2 drained, ganglion cysts, left squamous cell ca removed, cataracts, EGD Past Anesthesia/Blood Transfusion Reactions: No Reported Reaction, Motion Sickness Past Psychological History: Anxiety, Depression Smoking Status: Current every day smoker Past Alcohol Use History: Abuse, Daily, Heavy Past Drug Use History: Marijuana - Past Family History Father Family Medical History: No Reported History Additional Family Medical History / Comment(s): . Mother Family Medical History: Cancer Additional Family Medical History / Comment(s): Mother at age 65 from breast cancer/bone. Brother(s) Additional Family Medical History / Comment(s): Patient has 1 brother that from a motor vehicle accident involving alcohol. Patient has no sisters. Patient has 1 son 21 years old and one daughter 23 years old and she has no contact with her children. Medications and Allergies Home Medications Medication Instructions Recorded Confirmed Type Metoprolol Tartrate [Lopressor] 25 mg PO BID 03/17/19 05/21/21 History Multivit with Calcium,Iron,Min 1 tab PO DAILY 05/18/19 05/21/21 History [Women's Multivitamin] metFORMIN HCL [Glucophage] 500 mg PO PC-BID 08/31/20 05/21/21 History traZODone HCL 150 mg PO HS 12/23/20 05/21/21 History Acetaminophen-Codeine 300-30mg 1 tab PO Q6H PRN 05/21/21 05/21/21 History [Tylenol w/codeine #3] DULoxetine HCL [Cymbalta] 30 mg PO HS 05/21/21 05/21/21 History Folic Acid 0.4 mg PO DAILY 05/21/21 05/21/21 History Ibuprofen [Motrin] 800 mg PO TID PRN 05/21/21 05/21/21 History Allergies Allergy/AdvReac Type Severity Reaction Status Date / Time azithromycin [From Zithromax] Allergy "had very Verified 05/21/21 07:58 bad thrush" Iodinated Contrast Media Allergy Anaphylaxis- Verified 05/21/21 07:58 [Iodinated Contrast Media - Lungs IV Dye] filled up with fluid shellfish derived [Shellfish] Allergy Swelling, Verified 05/21/21 07:58 NAUSEA pregabalin [From Lyrica] AdvReac Nausea & Verified 05/21/21 07:58 Vomiting, dizziness Physical Examination - Vital Signs Vital Signs: Vital Signs Temp Pulse Resp BP Pulse Ox 05/21/21 07:00 71 18 135/91 97 05/21/21 04:00 74 18 124/59 98 05/21/21 01:00 70 18 132/67 93 L 05/21/21 00:00 97.8 F 78 18 116/64 94 L 05/20/21 23:22 97.9 F 71 18 108/61 93 L Intake and Output 05/20/21 05/21/21 05/21/21 22:59 06:59 14:59 Other: Weight 92.533 kg GENERAL: The patient is lying in bed and is in mild to moderate acute distress. CHEST: The heart rate is regular rate rhythm. No murmurs to auscultation. LUNG: Clear to auscultation bilaterally no wheezing noted throughout. Not labored breathing. ABDOMEN/GI: Bowel sounds present in all 4 quadrants. No tenderness to palpation throughout. NEUROLOGICAL: Higher mental function: The patient is awake, alert, oriented to self, place and time. Patient is following commands. No aphasia and no neglect. Cranial nerves: The pupils are round, equal and reactive to light and accommodation. Visual lara are full to confrontation throughout. Extraocular movement is intact no nystagmus is noted. Facial sensation is normal to touch throughout. The facial strength is normal throughout. Hearing is normal bilaterally to hand rub. Tongue is midline and moved [id number] without any difficulty. No dysarthria is noted. Shoulder shrug is normal bilaterally. Motor: Gait is deferred because of her pain. The strength is 5 over 5 througho ut. Normal tone and bulk. Cerebellum: Normal finger bilaterally. Sensation: Sensation is decrease to touch from mid thigh to all way to tips of toes bilaterally to touch. . Reflexes (right/left): 1+ throughout uppers while 0 in lowers. Plantars are mute bilaterally. Results - Laboratory Findings CBC and BMP: 05/21/21 05:43 Abnormal Lab Findings: Abnormal Labs 05/21/21 05/21/21 05:13 05:43 Sodium 133 L Chloride 96 L Glucose 204 H Magnesium 1.5 L AST 49 H ALT 36 H Alkaline Phosphatase 24 L Urine Appearance Cloudy H Urine Protein Trace H Urine Bacteria Many H Urine Mucus Rare H Serum Alcohol 231 H* Assessment and Plan Assessment: Polyneuropathy due to multifactorial significant alcohol use as well as diabetes Chronic alcohol use on a daily basis and on presentation his alcohol level serum is 231. Reported Lumbar spondylosis Diabetes mellitus and on presentation his sugar was 204 serum (most recent HbA1 on 05/17/2021 is 5.6 and HbA1c seems controlled) Nicotine use Plan: She stated that she does not want any further lab workup such as vitamin B12 and folate since she said that she is on vitamin B12 and folic acid as a supplement as well as she had labs most recently. She said that she does not want any further workup regarding her polyneuropathy. Patient was notified to follow-up with her neurologist for further investigation for her neuropathy besides the as a cause of the colon diabetes. I notified her that to consider lumbar puncture and shows considered as an outpatient. Changed Cymbalta from 30mg qhs to 20mg 1 tab bid. She had a recent TSH and it was a 1.43 which is considered normal on 05/17/2021. Patient is on folic acid and Vitamin B12 at home. ED team started the patient on thiamine 100 mg 1 tablet twice a day and is to be continued Recommend consulting pain team regarding her management of her pain. She refuses to be on gabapentin and Lyrica (and could not tolerate them/allergic reaction to Lyrica). She is on Ativan when necessary for CIWA protocol and will defer management to primary team. Consulted physical therapy and occupation therapy for gait training Patient was Counseled on alcohol cessation as well as to continue controlling her sugars. Counseled on tobacco cessation. Defer the rest of the medical management to the primary team. Upon discharge, the patient needs to follow-up with her neurologist (Dr. Cody) within 2-3 weeks. Thank you for the consultation. From neurological perspective there is no further work-up since patient refuses any further investigation and states she had all work-up. She is neurologically clear. Romulo Banks M.D. Neuro-hospitalist Time with Patient: Greater than 30
[2021-05-21] MEDS ORDERED: DULoxetine HCL 20 MG CAPSULE.DR PO SCH (11:15)
[2021-05-21] MEDS ORDERED: FOLIC ACID 1 MG TAB PO SCH (12:00)
[2021-05-21] MEDS ORDERED: THIAMINE 100 MG TAB PO SCH (17:30)
[2021-05-21] MEDS ORDERED: traZODone HCL 50 MG TAB PO SCH (21:00)
[2021-05-21] MEDS ORDERED: MELATONIN 5 MG TABLET PO SCH (21:00)
== END 2021-05-21 13:59 | disposition left against medical advice (07) | DRG 74 ==
LOC: EC 23:21 → 4SSUR 05-21 07:21
PROVIDERS: ADMIT Family Medicine; ATTEND Family Medicine
DX: G62.1 Alcoholic polyneuropathy (principal); E11.42 Type 2 diabetes mellitus with diabetic polyneuropathy; I11.0 Hypertensive heart disease with heart failure; I50.9 Heart failure, unspecified; M54.9 Dorsalgia, unspecified; R20.0 Anesthesia of skin; L97.519 Non-pressure chronic ulcer of other part of right foot with unspecified severity; I69.998 Other sequelae following unspecified cerebrovascular disease; Z20.822 Contact with and (suspected) exposure to COVID-19; E83.42 Hypomagnesemia; F10.10 Alcohol abuse, uncomplicated; F17.210 Nicotine dependence, cigarettes, uncomplicated; G40.909 Epilepsy, unspecified, not intractable, without status epilepticus; G89.29 Other chronic pain; I25.2 Old myocardial infarction; Z79.51 Long term (current) use of inhaled steroids; Z79.84 Long term (current) use of oral hypoglycemic drugs; Z79.899 Other long term (current) drug therapy; Z88.1 Allergy status to other antibiotic agents; Z91.041 Radiographic dye allergy status; Z91.013 Allergy to seafood; Z98.42 Cataract extraction status, left eye; Z98.41 Cataract extraction status, right eye; Z87.19 Personal history of other diseases of the digestive system; Z85.828 Personal history of other malignant neoplasm of skin
CPT/HCPCS: 80053; 80320; 83735; 84484; 87635; 99285

== ENCOUNTER → 2021-07-04 | Outpatient (CLI) | payer MEDICARE ==
--- NOTE | 2021-07-04 11:09 | XR ---
EXAMINATION TYPE: XR abdomen 2V DATE OF EXAM: 07/04/2021 COMPARISON: NONE HISTORY: Pain TECHNIQUE: One view abdominal series FINDINGS: The osseous structures are intact. The bowel gas pattern is nonspecific. Postsurgical changes are no bartolo. Bowel gas pattern is nonspecific. Calcifications in pelvis are likely vascular. No definite susp icious calcifications overlying the renal outlines. Calcifications in the pelvis are nonspecific but likely vascular. There is a linear calcification in the left hemipelvis measuring 1 mm x 3 mm. IMPRESSION: 1. Nonspecific abdomen. Could not exclude a distal left ureteral calculus measuring 1 x 3 mm.
== END | disposition home or self-care (01) ==
LOC: RADXRMAIN 10:35
PROVIDERS: ATTEND Nurse Practitioner Family
DX: R93.3 Abnormal findings on diagnostic imaging of other parts of digestive tract (principal)
CPT/HCPCS: 74019

== ENCOUNTER → 2021-07-26 | Outpatient (CLI) | payer MEDICARE ==
--- NOTE | 2021-07-28 22:58 | CT ---
EXAMINATION TYPE: CT abdomen pelvis wo con DATE OF EXAM: 07/26/2021 COMPARISON: CT 12/30/2020 HISTORY: 60 year-old female left flank pain CT DLP: 1124 mGycm. Automated exposure control for dose reduction was used. TECHNIQUE: Contiguous axial scanning of the abdomen and pelvis without IV contrast. Coronal and sagit ludivina reconstructions performed. FINDINGS: The heart is upper limits of normal in size without pericardial effusion. Mild diffuse bronchial wall thickening in the visualized lower lung suggests bronchitis or chronic. No pleural effusion. Previous ventral abdominal wall mesh repair. There is soft tissue thickening along the superficial fa scia which likely represents extensive scar tissue and can be correlated clinically. Liver mildly enlarged at 18.0 cm. Some areas have a slightly nodular contour. Gallbladder is collapsed with numerous layering calculi. No biliary ductal dilatation seen. Adrenal glands, right kidney, and pancreas show no gross abnormalities by noncontrast technique. There is an extrarenal pelvis on the left kidney. There is also a 1.8 cm cortical hypodensity lateral left kidney with faint peripheral calcification along lateral margin, unchanged from 12/30/2020, prob ably a minimally complex cortical cyst. There is a hilar splenule and splenomegaly of 16.0 cm on coronal image 63. No dilated small bowel, free fluid, or free air. No mesenteric or retroperitoneal lymphadenopathy. No significant stool burden. Normal appendix visualized. There is short segment annular thickening and luminal narrowing along the mid ascending colon, axial image 70 and 71 that may represent focal peristalsis or spasm. Direct visualization when patient able . Mild generalized anasarca change. Bladder partially distended. Uterus anteverted. Rounded density measuring 3.0 cm centered in the region of the lower uterine segment or cervix. 3.3 cm round lesion associated with the left ovary versus 3.2 cm, previously. Right ovary is visualiz ed with some coarse calcification. Vascular calcifications in the pelvis. Pelvic phleboliths. No abno rmal fluid collection in the pelvis or pelvic lymphadenopathy. Bones: Bridging anterior endplate spondylosis visualized lower thoracic spine. IMPRESSION: 1. 1.8 cm cortical hypodense lesion lateral left kidney with faint peripheral calcification, unchang ed from 12/30/2020, probably a minimally complex cortical cyst. Consider a 6 month follow ultrasound t o reassess for stability and further characterize. 2. Short segment annular narrowing and soft tissue thickening at the mid ascending colon could repre sent focal peristalsis/spasm. Recommend direct visualization to exclude a mucosal lesion if routine s creening colonoscopy is not being performed. 3. A round 3.0 cm density centered along the lower uterine segment/cervix. Recommend pelvic ultrasou nd evaluation to exclude a fibroid or other mass here. Pelvic ultrasound can also further characteriz e a 3.2 cm round lesion of the left ovary as well (versus 3.2 cm on 12/30/2020). 4. No nephrolithiasis or hydronephrosis. 5. Mild hepatomegaly (18.0 cm). Some areas have a slightly nodular liver contour. Correlate to exclu de the possibility of underlying cirrhosis. 6. Previous ventral abdominal wall mesh repair with extensive soft tissue thickening along the super ficial muscular fascia, similar to 12/30/2020 suggesting extensive scar tissue formation. 7. Splenomegaly of 16.0 cm (versus 17.9 cm on 01/07/2021). 8. Numerous small gallstones.
== END | disposition home or self-care (01) ==
LOC: RADCTMAIN 07-25 17:50
PROVIDERS: ATTEND Family Medicine
DX: N28.9 Disorder of kidney and ureter, unspecified (principal); K63.89 Other specified diseases of intestine; N85.8 Other specified noninflammatory disorders of uterus; K80.20 Calculus of gallbladder without cholecystitis without obstruction; R16.2 Hepatomegaly with splenomegaly, not elsewhere classified
CPT/HCPCS: 74176

== ENCOUNTER 2021-08-09 07:27 | Day surgery (SDC) | payer MEDICARE ==
[2021-08-07 09:13] VITALS: BMI 31.4
[~2021-08-09 07:27] MED LIST changes: -DEXAMETHASONE SOD PHOSPHATE 4 MG/ML 1 ML VIAL IV ONE; -HEPARIN SODIUM,PORCINE 5,000 UNIT/ML 1 ML VIAL SQ PRN; +HEPARIN SODIUM,PORCINE/PF 5,000 UNIT/0.5 ML SYRINGE SQ PRN; -HYDROmorphone 0.5 MG/0.5 ML SYRINGE IVP PRN; -LACTATED RINGERS 1,000 ML IV SCH; -ONDANSETRON 4 MG/2 ML VIAL IVP ONE; -Pre Op ABX Message 1 EACH MISC MISCELLANE ONE
[2021-08-09 08:19] VITALS: TEMP 97
[2021-08-09 08:20] LABS: Glucose,Whole Blood 185 mg/dL (75-99)
[2021-08-09] MEDS ORDERED: LACTATED RINGERS 1,000 ML IV ONE ×3 (08:20→13:32)
[2021-08-09] MEDS ORDERED: ONDANSETRON 4 MG/2 ML VIAL ONE (08:26)
[2021-08-09 08:40] LABS: HCT 42.4 % (34.0-46.0); HGB 15.1 gm/dL (11.4-16.0); MCH 34.3 pg (25.0-35.0); MCHC 35.5 g/dL (31.0-37.0); MCV 96.4 fL (80.0-100.0); Mean Platelet Volume 7.9; Platelet Count 185 k/uL (150-450); RDW 12.3 % (11.5-15.5); WBC 4.2 k/uL (3.8-10.6)
[2021-08-09] MEDS ORDERED: INSULIN ASPART (NovoLOG) 100 UNIT/ML VIAL SQ ONE (08:52)
[2021-08-09] MEDS ORDERED: ONDANSETRON 4 MG/2 ML VIAL IVP ONE (08:52)
[2021-08-09] MEDS ORDERED: DEXAMETHASONE SOD PHOSPHATE 4 MG/ML 1 ML VIAL IVP ONE (08:53)
[2021-08-09 09:02] LABS: African American GFR (CKD) >90 (>60 ml/min/1.73 sqM); Anion Gap 8 mmol/L; Blood Urea Nitrogen 8 mg/dL (7-17); Calcium 10.4 mg/dL (8.4-10.2); Carbon Dioxide 31 mmol/L (22-30); Chloride 92 mmol/L (98-107); Glucose 183 mg/dL (74-99); Non-African American GFR(CKD) >90 (>60 ml/min/1.73 sqM); Potassium 3.7 mmol/L (3.5-5.1); Sodium 131 mmol/L (137-145)
--- NOTE | 2021-08-09 09:03 | P.GSHP ---
History of Present Illness H&P Date: 08/09/21 Chief Complaint: Upper quadrant pain This is a 6-year-old female who second with right quadrant pain. Patient lithiasis. She presents today for laparoscopically cholecystectomy for chronic sinus cholelithiasis. Patient has extensive abdominal surgery. She has a large midline scar. I discussed with the risk of possible conversion to the open procedure Past Medical History Past Medical History: Cancer, Heart Failure, CVA/TIA, Diabetes Mellitus, Hypertension, Myocardial Infarction ([place]), Musculoskeletal Disorder, Neurologic Disorder, Seizure Disorder Additional Past Medical History / Comment(s): "Not Diabetic anymore, last A1C was 5.0." Neuropathy of lower extremities and hands, bilateral carpal tunnel, hx CVA in 2002, affected right eye vision, now resolved, still has numbness in right hand, hx TIA's and seizures due to alcoholism, none in yrs, hx of a concussion from a fall in 2010, balance issues from Neuropathy, hx of treatment for TB at 5 yrs old, spot on liver, hx rib and left ankle fractures, hx squamous cell cancer on left forearm and right arm, current kidney stones and gallstones. Last Myocardial Infarction Date:: 2014 per EKG History of Any Multi-Drug Resistant Organisms: None Reported Date of last positivie culture/infection: None MDRO Source:: None Past Surgical History: Section, Hernia Repair, Orthopedic Surgery, Tonsillectomy Additional Past Surgical History / Comment(s): Ventral hernia repair X4, Section X2, debridements of right foot and abdomen, colonoscopy, laparoscopy, seromas drained X2, ganglion cysts removed, left squamous cell cancer removed, cataracts removed, EGD. Past Anesthesia/Blood Transfusion Reactions: No Reported Reaction, Motion Sickness Past Psychological History: Anxiety, Depression Additional Psychological History / Comment(s): . Smoking Status: Current every day smoker Past Alcohol Use History: Abuse, Daily, Heavy Additional Past Alcohol Use History / Comment(s): Drank 6 pack beer per day, then went to a fifth of rum a day. States "now drinks a pint daily, but haven't drank in a few days due to the surgery.". Smokes 10 cigarettes a day, started smoking in 2003 . Past Drug Use History: Marijuana Additional Drug Use History / Comment(s): No current Marijuana use. - Past Family History Father Family Medical History: No Reported History Additional Family Medical History / Comment(s): . Mother Family Medical History: Cancer Additional Family Medical History / Comment(s): Mother at age 65 from breast/bone cancer. Brother(s) Additional Family Medical History / Comment(s): Patient has 1 brother that from a motor vehicle accident involving alcohol. Patient has no sisters. Patient has 1 son 21 years old and one daughter 23 years old and she has no contact with her children. Medications and Allergies Home Medications Medication Instructions Recorded Confirmed Type Metoprolol Tartrate [Lopressor] 25 mg PO BID 03/17/19 08/09/21 History Multivit with Calcium,Iron,Min 1 tab PO DAILY 05/18/19 08/09/21 History [Women's Multivitamin] metFORMIN HCL [Glucophage] 500 mg PO PC-BID 08/31/20 08/09/21 History traZODone HCL 150 mg PO HS 12/23/20 08/09/21 History Acetaminophen-Codeine 300-30mg 1 tab PO Q6H PRN 05/21/21 08/09/21 History [Tylenol w/codeine #3] Folic Acid 0.4 mg PO DAILY 05/21/21 08/09/21 History Ibuprofen [Motrin] 800 mg PO TID PRN 05/21/21 08/09/21 History DULoxetine HCL [Cymbalta] 60 mg PO HS 08/07/21 08/09/21 History Allergies Allergy/AdvReac Type Severity Reaction Status Date / Time azithromycin [From Zithromax] Allergy "had very Verified 08/09/21 07:57 bad thrush" Iodinated Contrast Media Allergy Anaphylaxis- Verified 08/09/21 07:57 [Iodinated Contrast Media - Lungs IV Dye] filled up with fluid shellfish derived [Shellfish] Allergy Swelling, Verified 08/09/21 07:57 NAUSEA pregabalin [From Lyrica] AdvReac Nausea & Verified 08/09/21 07:57 Vomiting, dizziness Surgical - Exam Vital Signs Temp Pulse Resp BP Pulse Ox 97.0 F L 75 15 145/78 98 08/09/21 08:00 08/09/21 08:00 08/09/21 08:00 08/09/21 08:00 08/09/21 08:00 - General well developed, well nourished, no distress - Eyes PERRL - ENT normal pinna - Neck no masses - Respiratory normal expansion - Cardiovascular Rhythm: regular - Abdomen Large midline scar. Evidence of previous open wound with secondary healing Abdomen: soft, non tender Results - Labs 08/09/21 08:16 Abnormal Lab Results - Last 24 Hours (Table) 08/09/21 Range/Units 08:11 POC Glucose (mg/dL) 185 H (75-99) mg/dL Assessment and Plan Assessment: Cholelithiasis Chronic lysis We'll perform laparoscopic possible open appendectomy
[2021-08-09] MEDS ORDERED: MIDAZOLAM 2 MG/2 ML VIAL IVP ONE (09:05)
[2021-08-09] MEDS ORDERED: fentaNYL (PF) 50 MCG/ML 2 ML AMP IVP ONE (09:05)
[2021-08-09] MEDS ORDERED: BUPIVACAIN-EPI 0.25%-1:200,000 30 ML VIAL SQ ONE ×2 (09:09→09:46)
[2021-08-09] MEDS ORDERED: ROPIVACAINE 5 MG/ML 30 ML VIAL ONE (09:16)
[2021-08-09] MEDS ORDERED: SUCCINYLCHOLINE CHLORIDE 100 MG/5 ML SYR IV ONE (09:16)
[2021-08-09] MEDS ORDERED: LIDOCAINE 1% INJ 10MG/ML (20 ML MDV) ONE (09:16)
[2021-08-09] MEDS ORDERED: PHENYLEPHRINE-0.9% NACL SYG 1,000 MCG/10 ML SYRINGE ONE (09:16)
[2021-08-09] MEDS ORDERED: GLYCOPYRROLATE 0.2 MG/ML 2 ML VIAL ONE (09:16)
[2021-08-09] MEDS ORDERED: NEOSTIGMINE 1 MG/ML 10 ML VIAL ONE (09:16)
[2021-08-09] MEDS ORDERED: ROCURONIUM 10 MG/ML (5 ML VIAL) IV ONE (09:16)
[2021-08-09] MEDS ORDERED: DEXAMETHASONE SOD PHOSPHATE 4 MG/ML 1 ML VIAL ONE (09:16)
[2021-08-09] MEDS ORDERED: ePHEDrine 50 MG/ML 1 ML AMP ONE (09:16)
[2021-08-09] MEDS ORDERED: MIDAZOLAM 2 MG/2 ML VIAL ONE (09:16)
[2021-08-09] MEDS ORDERED: fentaNYL (PF) 50 MCG/ML 2 ML AMP ONE (09:16)
[2021-08-09] MEDS ORDERED: PROPOFOL 10 MG/ML 20 ML VIAL IV ONE (09:16)
--- NOTE | 2021-08-09 09:21 | P.ANPRN ---
Procedure Note - Anesthesia - Nerve Block Performed Bilateral Erector Spinae Single Time Out Performed: Yes Date of Procedure: 08/09/21 Procedure Start Time: :04 Procedure Stop Time: :15 Location of Patient: PreOp Indication: Acute Post-Operative Pain, Requested by Surgeon Sedation Type: Sedate with meaningful contact maintained Preparation: Sterile Prep, Sterile Dressing Position: Prone Catheter: None Needle Types: Facet Needle Gauge: 20 Ultrasound used to visualize needle placement: Yes Ultrasound used to observe medication spread: Yes Injectate: 0.5% Ropivacaine (see comment for volume) (15 ml + decadron 4 mg per side) Blood Aspirated: No Pain Paresthesia on Injection Noted: No Resistance on Injection: Normal Image Stored and Saved: Yes Events: Uneventful and Well Tolerated
--- NOTE | 2021-08-09 10:27 | P.OP ---
Date of Procedure: 08/09/21 Preoperative Diagnosis: Cholecystitis Postoperative Diagnosis: Cholecystitis Procedure(s) Performed: Laparoscopic cholecystectomy Anesthesia: CHIQUITA Surgeon: Reagan Jaimes Estimated Blood Loss (ml): 5 Pathology: other (Gallbladder) Condition: stable Disposition: PACU Description of Procedure: The patient was placed on the operating table. The patient received a general endotracheal tube anesthesia. The patients abdomen was prepped and draped in the usual sterile fashion. Through an infraumbilical stab incision, the fascia of the anterior abdominal wall was grasped with a pair of Kochers and then the Veress needle was placed in the peritoneal cavity. Position of the Veress needle was confirmed with positive drop test. The abdomen was then insufflated. After adequate insufflation, the 10 mm trocar was placed in the peritoneal cavity. Following this the laparoscope was placed in the peritoneal cavity. The patient was placed in the head-up, right side up position and then a 5 mm trocar was placed in the right lateral and right subcostal position under direct visualization. A 8 mm trocar was placed in the epigastric position. The gallbladder was grasped in the fundus and infundibulum. Traction on the gallbladder was placed in the lateral and the cephalad positions. The triangle of Calot was visualized.. The cystic duct was bluntly dissected until the union of the cystic duct and common bile duct was seen. A critical view of safety was achieved. The cystic duct was then divided and sealed with the Harmonic scissors. A PDS Endoloop was then placed throughout the cystic duct stump. The cystic artery divided and sealed with the Harmonic scissors. The gallbladder was then removed from the liver bed using Harmonic scissors. The gallbladder was then extracted through the epigastric port site. Operative field was checked for any bleeding spots and Harmonic scissors was used to coagulate the liver bed. The abdomen was irrigated. The trocars were removed. The skin was closed using interrupted 3-0 Vicryl suture. Dermabond dressing were applied. The patient tolerated the procedure well.
[2021-08-09 11:45] VITALS: RESP 16
[2021-08-09 14:25] VITALS: BP 151/87; PULSE 79
== END 2021-08-09 14:56 | disposition home or self-care (01) ==
LOC: OR 07:27
PROVIDERS: ATTEND Surgery
DX: K81.9 Cholecystitis, unspecified (principal); Z86.718 Personal history of other venous thrombosis and embolism; I25.2 Old myocardial infarction; I11.0 Hypertensive heart disease with heart failure; I50.9 Heart failure, unspecified; E11.9 Type 2 diabetes mellitus without complications; F17.200 Nicotine dependence, unspecified, uncomplicated
CPT/HCPCS: 47562; 64999; 88304; 80048; 85027; J2250; J1100; J2710; J0690; J2405; J2001; J3010; J2795; J2370; J0330; J2704; J1644

== ENCOUNTER → 2021-10-04 | Outpatient (CLI) | payer MEDICARE ==
--- NOTE | 2021-10-04 10:25 | US ---
EXAMINATION TYPE: US abdomen complete DATE OF EXAM: 10/04/2021 COMPARISON: CT abdomen July 26, 2021 CLINICAL HISTORY: K81.0 Acute cholecystitis. Recent cholecystectomy. Patient states doctor still want s ultrasound due to left-sided abdominal pain. EXAM MEASUREMENTS: Liver Length: 19.1 cm CBD: 0.19 cm Spleen: 14.8 cm Right Kidney: 12.6 x 5.3 x 4.2 cm Left Kidney: 12.7 x 5.1 x 5.0 cm Limited due to gas and patient body habitus. Pancreas: Limited visibility of tail. Liver: Appears enlarged and coarse in echotexture. Gallbladder: Surgically absent Evidence for sonographic Ruiz's sign: No CBD: Appears wnl Portal vein appears slightly enlarged measuring 15 mm AP. Spleen: Appears enlarged. Circular area seen medially that appears isoechoic to the spleen measurin.8 x 1.8 x 1.6 cm. Right Kidney: Appears slightly enlarged. Left Kidney: Appears slightly enlarged. Complex area seen laterally: 2.1 x 1.6 x 1.4 cm. Upper IVC: Appears wnl Abd Aorta: Limited visibility. No aneurysm in the visualized portion of the aorta. IVC is seen near the hepatic dome. Visualized alejo creas appears within normal limits. Visualized liver slightly heterogeneous hyperechoic in appearance without worrisome mass or ductal dilatation seen on images saved. Gallbladder now surgically absent. No right-sided hydronephrosis. Splenomegaly redemonstrated. No left-sided hydronephrosis. IMPRESSION: Heterogeneous hyperechoic appearance of liver could be on basis of diffuse fatty infiltra tion and/or underlying hepatocellular disease. Splenomegaly redemonstrated. No ascites seen currently . Correlate clinically.
== END | disposition home or self-care (01) ==
LOC: RADUSWWP 09:32
PROVIDERS: ATTEND Family Medicine
DX: K76.89 Other specified diseases of liver (principal); R16.1 Splenomegaly, not elsewhere classified; Z90.49 Acquired absence of other specified parts of digestive tract
CPT/HCPCS: 76700

== ENCOUNTER → 2022-02-21 | Outpatient (CLI) | payer MEDICARE ==
[2022-02-21 22:32] LABS: Basophils # (A) 0.04 X 10*3/uL (0.00-0.10); Basophils % (A) 0.6 %; Eosinophils # (A) 0.08 X 10*3/uL (0.04-0.35); Eosinophils % (A) 1.3 %; HCT 39.2 % (37.2-46.3); HGB 13.2 g/dL (12.0-15.0); Immature Grans, Automated 0.3 %; Lymphocytes # (A) 1.48 X 10*3/uL (0.90-5.00); Lymphocytes % (A) 23.8 %; MCH 34.1 pg (27.0-32.0); MCHC 33.7 g/dL (32.0-37.0); MCV 101.3 fL (80.0-97.0); Mean Platelet Volume 10.8 fL (9.5-12.2); Monocytes # (A) 0.46 X 10*3/uL (0.20-1.00); Monocytes % (A) 7.4 %; NRBC Per 100 WBC 0 /100 WBCS (0.0-0.0); Neutrophils # (A) 4.15 X 10*3/uL (1.80-7.70); Neutrophils % (A) 66.6 %; Platelet Count 220 X 10*3/uL (140-440); RBC 3.87 X 10*6/uL (4.10-5.20); RDW 13.1 % (11.5-14.5); WBC 6.23 X 10*3/uL (4.50-10.00)
[2022-02-21 22:55] LABS: Anion Gap 11.2 mmol/L (10.00-18.00); Carbon Dioxide 28.6 mmol/L (20.0-27.5); Potassium 4.3 mmol/L (3.5-5.5)
== END | disposition home or self-care (01) ==
LOC: LABPAT 14:16
PROVIDERS: ATTEND Orthopaedic Surgery
DX: Z01.812 Encounter for preprocedural laboratory examination (principal); G56.02 Carpal tunnel syndrome, left upper limb
CPT/HCPCS: 80051; 85025

== ENCOUNTER 2022-06-30 22:15 | Inpatient (IN) | payer MEDICARE ==
[2022-06-30] MEDS ORDERED: SODIUM CHLORIDE 0.9% 1,000 ML IV STA ×2 (22:30)
[2022-06-30] MEDS ORDERED: SODIUM CHLORIDE 0.9% 500 ML 500 ML IV STA (22:30)
--- NOTE | 2022-06-30 22:30 | ED ---
Alcohol HPI - General Chief Complaint: Alcohol Stated Complaint: ETOH Time Seen by Provider: 06/30/22 22:26 Source: patient Mode of arrival: EMS - Related Data Home Medications Medication Instructions Recorded Confirmed Metoprolol Tartrate [Lopressor] 25 mg PO BID 03/17/19 02/28/22 Multivit with Calcium,Iron,Min 1 tab PO DAILY 05/18/19 02/28/22 [Women's Multivitamin] metFORMIN HCL [Glucophage] 500 mg PO PC-BID 08/31/20 02/28/22 traZODone HCL 150 mg PO HS 12/23/20 02/28/22 Acetaminophen-Codeine 300-30mg 1 tab PO Q6HR PRN 05/21/21 02/28/22 [Tylenol w/codeine #3] DULoxetine HCL [Cymbalta] 60 mg PO HS 08/07/21 02/28/22 Biotin 5 mg PO DAILY 08/14/21 02/28/22 Calcium Carbonate/Vitamin D3 1 tab PO DAILY 08/14/21 02/28/22 [Calcium 500 mg-Vit D3 5 mcg (200 Unit)] Magnesium 200 mg PO DAILY 08/14/21 02/28/22 Losartan [Cozaar] 50 mg PO DAILY 02/26/22 02/28/22 Previous Rx's Medication Instructions Recorded Acetaminophen-Codeine 300-30mg 1 tab PO Q8H PRN #15 tablet 02/28/22 [Tylenol w/codeine #3] Allergies Allergy/AdvReac Type Severity Reaction Status Date / Time azithromycin [From Zithromax] Allergy "had very Verified 06/30/22 22:28 bad thrush" Iodinated Contrast Media Allergy Anaphylaxis- Verified 06/30/22 22:28 [Iodinated Contrast Media - Lungs IV Dye] filled up with fluid shellfish derived [Shellfish] Allergy Swelling, Verified 06/30/22 22:28 NAUSEA pregabalin [From Lyrica] AdvReac Nausea & Verified 06/30/22 22:28 Vomiting, dizziness Review of Systems ROS Statement: Those systems with pertinent positive or pertinent negative responses have been documented in the HPI. ROS Other: All systems not noted in ROS Statement are negative. Past Medical History Past Medical History: Cancer, Heart Failure, CVA/TIA, Diabetes Mellitus, Hypertension, Myocardial Infarction ([place]), Musculoskeletal Disorder, Neurologic Disorder, Seizure Disorder Additional Past Medical History / Comment(s): "Not Diabetic anymore, last A1C was 5.0." Neuropathy of lower extremities and hands, bilateral carpal tunnel, hx CVA in 2002, affected right eye vision, now resolved, still has numbness in right hand, hx TIA's and seizures due to alcoholism, none in yrs, hx of a concussion from a fall in 2010, balance issues from Neuropathy, hx of treatment for TB at 5 yrs old, spot on liver, hx rib and left ankle fractures, hx squamous cell cancer on left forearm and right arm, current kidney stones and gallstones. Last Myocardial Infarction Date:: 2014 per EKG History of Any Multi-Drug Resistant Organisms: None Reported Date of last positivie culture/infection: None MDRO Source:: None Past Surgical History: Section, Cholecystectomy, Hernia Repair, Orthopedic Surgery, Tonsillectomy Additional Past Surgical History / Comment(s): Ventral hernia repair X4, Section X2, debridements of right foot and abdomen, colonoscopy, laparoscopy, seromas drained X2, ganglion cysts removed, left squamous cell cancer removed, cataracts removed, EGD. Past Anesthesia/Blood Transfusion Reactions: No Reported Reaction, Motion S ickness Past Psychological History: Anxiety, Depression Smoking Status: Current every day smoker - Past Family History Father Family Medical History: No Reported History Additional Family Medical History / Comment(s): . Mother Family Medical History: Cancer Additional Family Medical History / Comment(s): breast cancer Brother(s) Additional Family Medical History / Comment(s): Patient has 1 brother that from a motor vehicle accident involving alcohol. Patient has no sisters. Patient has 1 son 21 years old and one daughter 23 years old and she has no contact with her children. Course Vital Signs 06/30/22 22:24 Temperature 97.7 F Pulse Rate 75 Respiratory 14 Rate Blood Pressure 96/55 O2 Sat by Pulse 93 L Oximetry Medical Decision Making - Lab Data Result diagrams: 06/30/22 23:16 06/30/22 23:16 Lab Results 06/30/22 06/30/22 06/30/22 Range/Units 23:16 23:16 23:16 WBC 2.5 L (3.8-10.6) k/uL RBC 4.10 (3.80-5.40) m/uL Hgb 14.5 (11.4-16.0) gm/dL Hct 38.6 (34.0-46.0) % MCV 94.1 (80.0-100.0) fL MCH 35.3 H (25.0-35.0) pg MCHC 37.5 H (31.0-37.0) g/dL RDW 12.4 (11.5-15.5) % Plt Count 170 (150-450) k/uL MPV 8.6 Neutrophils % 78 % Lymphocytes % 20 % Monocytes % 1 % Eosinophils % 0 % Basophils % 0 % Neutrophils # 1.9 (1.3-7.7) k/uL Lymphocytes # 0.5 L (1.0-4.8) k/uL Monocytes # 0.0 (0-1.0) k/uL Eosinophils # 0.0 (0-0.7) k/uL Basophils # 0.0 (0-0.2) k/uL PT 11.5 (9.0-12.0) sec INR 1.1 (<1.2) Sodium 129 L (137-145) mmol/L Potassium 4.0 (3.5-5.1) mmol/L Chloride 89 L (98-107) mmol/L Carbon Dioxide 13 L (22-30) mmol/L Anion Gap 27 mmol/L BUN 8 (7-17) mg/dL Creatinine 0.79 (0.52-1.04) mg/dL Est GFR (CKD-EPI)AfAm >90 (>60 ml/min/1.73 sqM) Est GFR (CKD-EPI)NonAf 82 (>60 ml/min/1.73 sqM) Glucose 219 H (74-99) mg/dL Calcium 10.4 H (8.4-10.2) mg/dL Phosphorus 3.0 (2.5-4.5) mg/dL Magnesium 1.2 L (1.6-2.3) mg/dL Total Bilirubin 0.7 (0.2-1.3) mg/dL AST 29 (14-36) U/L ALT 26 (4-34) U/L Alkaline Phosphatase 32 L (38-126) U/L Total Protein 7.1 (6.3-8.2) g/dL Albumin 4.7 (3.5-5.0) g/dL Lipase 63 (23-300) U/L Salicylates <1.0 mg/dL Acetaminophen <10.0 ug/mL Serum Alcohol 344 H* mg/dL Disposition Clinical Impression: Mood disorder, Depression, Alcohol use disorder, severe, dependence, Hypomagnesemia, Alcohol intoxication Disposition: ADMITTED IP TO THIS HOSP Condition: Fair Is patient prescribed a controlled substance at d/c from ED?: No Referrals: None,Stated [REFERRING] - 1-2 days Time of Disposition: 00:40
[2022-06-30 23:21] LABS: Basophils % (A) 0 %; Eosinophils % (A) 0 %; HCT 38.6 % (34.0-46.0); HGB 14.5 gm/dL (11.4-16.0); Lymphocytes # (A) 0.5 k/uL (1.0-4.8); Lymphocytes % (A) 20 %; MCH 35.3 pg (25.0-35.0); MCHC 37.5 g/dL (31.0-37.0); MCV 94.1 fL (80.0-100.0); Mean Platelet Volume 8.6; Monocytes % (A) 1 %; Neutrophils # (A) 1.9 k/uL (1.3-7.7); Neutrophils % (A) 78 %; Platelet Count 170 k/uL (150-450); RDW 12.4 % (11.5-15.5); WBC 2.5 k/uL (3.8-10.6)
[2022-06-30 23:34] LABS: ALT 26 U/L (4-34); AST 29 U/L (14-36); Acetaminophen <10.0 ug/mL; African American GFR (CKD) >90 (>60 ml/min/1.73 sqM); Albumin 4.7 g/dL (3.5-5.0); Alkaline Phosphatase 32 U/L (38-126); Anion Gap 27 mmol/L; Blood Urea Nitrogen 8 mg/dL (7-17); Calcium 10.4 mg/dL (8.4-10.2); Carbon Dioxide 13 mmol/L (22-30); Chloride 89 mmol/L (98-107); Glucose 219 mg/dL (74-99); Lipase 63 U/L (23-300); Magnesium 1.2 mg/dL (1.6-2.3); Non-African American GFR(CKD) 82 (>60 ml/min/1.73 sqM); Salicylate <1.0 mg/dL; Sodium 129 mmol/L (137-145); Total Bilirubin 0.7 mg/dL (0.2-1.3); Total Protein 7.1 g/dL (6.3-8.2)
[2022-06-30 23:44] LABS: INR 1.1 (<1.2); Prothrombin Time 11.5 sec (9.0-12.0)
[2022-06-30 23:54] LABS: Alcohol 344 mg/dL
[2022-07-01] MEDS ORDERED: THIAMINE 100 MG/ML 2 ML VIAL IM STA (00:34)
[2022-07-01] MEDS ORDERED: POTASSIUM CHLORIDE 20 MEQ in WATER FOR INJECTION 1 100ML.BAG IVPB STA (00:34)
[2022-07-01] MEDS ORDERED: LORazepam 2 MG/ML INJ IV PRN ×2 (00:34)
[2022-07-01] MEDS ORDERED: NALOXONE 0.4 MG/ML 1 ML VIAL IV PRN (00:34)
[2022-07-01] MEDS ORDERED: ONDANSETRON 4 MG/2 ML VIAL IVP PRN (00:34)
[2022-07-01] MEDS: MAGNESIUM SULFATE-D5W PMX 1 GM in DEXTROSE/WATER 1 100ML.BAG IVPB SCH ×5 (01:06→13:19)
[2022-07-01] MEDS: SODIUM CHLORIDE 0.9% 1,000 ML IV SCH ×2 (02:37→08:53)
[2022-07-01 03:04] LABS: Appearance,Urine Cloudy (Clear); Bacteria,Urine Many /hpf; Bilirubin,Urine Negative (Negative); Blood,Urine Negative (Negative); Color,Urine Yellow; Glucose,Urine (UA) 4+ (Negative); Hyaline Casts,Urine 3 /lpf (0-2); Ketones,Urine 1+ (Negative); Leukocyte Esterase,Urine Negative (Negative); Mucus,Urine Rare /hpf; Nitrite,Urine Negative (Negative); Protein,Urine Trace (Negative); Specific Gravity,Urine 1.015 (1.001-1.035); Squamous Epithelial Cell,Urine 2 /hpf (0-4); Urobilinogen,Urine <2.0 mg/dL (<2.0); WBC,Urine 3 /hpf (0-5)
[2022-07-01 03:10] LABS: Amphetamine Screen,Urine Not Detected (NotDetected); Barbiturate Screen,Urine Not Detected (NotDetected); Benzodiazepines Screen,Urine Not Detected (NotDetected); Cocaine Screen,Urine Not Detected (NotDetected); Methadone Screen, Urine Not Detected (NotDetected); Opiate Screen,Urine Detected (NotDetected); Oxycodone Screen, Urine Not Detected (NotDetected); Phencyclidine Screen,Urine Not Detected (NotDetected); Tricyclic Antidepressant,Urine Not Detected (NotDetected); Urn Cannabinoid Scrn Not Detected (NotDetected)
[2022-07-01] MEDS ORDERED: hydrOXYzine pamoate 25 MG CAP PO SCH (04:00)
[2022-07-01] MEDS: MULTIVITAMINS, THERA 1 EACH TAB PO SCH (07:53)
[2022-07-01] MEDS: FOLIC ACID 1 MG TAB PO SCH (07:53)
[2022-07-01] MEDS ORDERED: PANTOPRAZOLE 40 MG/10 ML VIAL IV SCH (09:00)
[2022-07-01 10:23] LABS: ALT 26 U/L (4-34); AST 26 U/L (14-36); African American GFR (CKD) >90 (>60 ml/min/1.73 sqM); Albumin 4.5 g/dL (3.5-5.0); Albumin/Globulin Ratio 1.8; Alkaline Phosphatase 29 U/L (38-126); Anion Gap 17 mmol/L; Blood Urea Nitrogen 6 mg/dL (7-17); Calcium 9.6 mg/dL (8.4-10.2); Carbon Dioxide 17 mmol/L (22-30); Chloride 95 mmol/L (98-107); Globulin 2.5 g/dL; Glucose 191 mg/dL (74-99); Magnesium 1.2 mg/dL (1.6-2.3); Non-African American GFR(CKD) >90 (>60 ml/min/1.73 sqM); Potassium 3.8 mmol/L (3.5-5.1); Sodium 129 mmol/L (137-145); Total Bilirubin 0.7 mg/dL (0.2-1.3)
[2022-07-01] MEDS ORDERED: Magnesium Replacement Protocol 1 EACH MISC MISCELLANE PRN ×2 (10:48)
[2022-07-01] MEDS: MAGNESIUM OXIDE 400 MG TAB PO SCH ×2 (10:53→20:23)
[2022-07-01] MEDS ORDERED: DEXTROSE 50% SYRINGE 50 ML IVP PRN ×2 (11:52)
[2022-07-01] MEDS ORDERED: MULTIVITAMINS, THERA 1 EACH TAB PO SCH (12:00)
[2022-07-01] MEDS: CALCIUM CARB-VIT D 500 MG-5 MCG TAB PO SCH (12:01)
[2022-07-01] MEDS: METOPROLOL TARTRATE 25 MG TAB PO SCH ×2 (12:01→20:20)
[2022-07-01] MEDS: LOSARTAN 50 MG TAB PO SCH (12:01)
[2022-07-01] MEDS: HYDROcodone/APAP 5-325MG 1 EACH TAB PO PRN ×2 (12:08→20:17)
[2022-07-01 12:14] LABS: Glucose,Whole Blood 247 mg/dL (70-110)
[2022-07-01] MEDS: INSULIN ASPART (NovoLOG) 100 UNIT/ML VIAL SQ SCH ×3 (13:18→22:13)
--- NOTE | 2022-07-01 14:43 | P.HPIM ---
History of Present Illness H&P Date: 07/01/22 This is a 61-year-old female who was recently admitted to the emergency department with acute alcohol intoxication. Patient follows with Dr. Rl Ellis and outpatient setting with a past medical history of squamous cell cancer of the left forearm and right arm, heart failure, CVA/TIA, diabetes mellitus, hypertension, myocardial infarction, seizure disorder, anxiety/depression, continued ongoing nicotine dependence and daily heavy alcohol use. Patient reports she was at home and fell while drinking calling 911 for assistance up and they decided to bring her to the hospital for further evaluation. Patient denies any head trauma, dizziness, or lightheadedness with the fall. Patient was found to be intoxicated with an alcohol level of 344 other drug screen negative except for opiates which she does take on a regular basis. Review of labs patient's sodium level found to be 129 kidney function stable with a creatinine of 0.79 blood sugars elevated and magnesium was found to be 1.2. P atient also found to be hypertensive this morning and will resume appropriate home medications after reviewing them. After further evaluation patient's magnesium continues to low at 1.2 after replacement and patient is supposed to be taking oral magnesium oxide daily although did not take medications yesterday. Patient reports she follows with [facility] and has been started on Solu-Medrol infusions currently working on receiving infusions here at [facility] and will need to follow-up outpatient for this and also discuss with primary care provider Dr. Ellis tomorrow. Patient just started infusions yesterday. Patient was admitted for acute alcohol intoxication placed on [facility] protocol and observation monitoring. Review Of Systems: Constitutional: No fever, no chills, no night sweats. No weight change. No weakness, fatigue or lethargy. No daytime sleepiness. EENT: No headache. No blurred vision or double vision, no loss of vision. No loss of Hearing, no ringing in the ears, no dizziness. No nasal drainage or congestion. No epistaxis. No sore throat. Lungs: No shortness of breath, cough, no sputum production. No wheezing. Cardiovascular: No chest pain, no lower extremity edema. No palpitations. No paroxysmal nocturnal dyspnea. No orthopnea. No lightheadedness or dizziness. No syncopal episodes. Abdominal: No abdominal pain. No nausea, vomiting. No diarrhea. No constipation. No bloody or tarry stools.. No loss of appetite. Genitourinary: No dysuria, increased frequency, urgency. No urinary retention. Musculoskeletal: No myalgias. No muscle weakness, no gait dysfunction, reports occasional falls. No back pain. No neck pain. Integumentary: No wounds, no lesions. No rash or pruritus. No unusual bruising. No change in hair or nails. Neurologic: No aphasia. No facial droop. No change in mentation. No head injury. No headache. No paralysis. No paresthesia. Psychiatric: No depression. No anxiety. No mood swings. Endocrine: No abnormal blood sugars. No weight change. No excessive sweating or thirst. No cold intolerance. PHYSICAL EXAMINATION: GENERAL: The patient is alert and oriented x4, Well developed, well nourished. HEENT: Pupils are round and equally reacting to light. EOMI. no scleral icterus. No conjunctival pallor. Normocephalic, atraumatic. No pharyngeal erythema. No thyromegaly. CARDIOVASCULAR: S1 and S2 muffled PULMONARY: diminished breath sounds bilaterally with no wheezing or rhonchi noted. ABDOMEN: soft. Nontender on exam. obese. non-distended, normoactive bowel sounds. No palpable organomegaly. MUSCULOSKELETAL: No joint swelling or deformity. EXTREMITIES: No cyanosis, clubbing, or pedal edema. NEUROLOGICAL: Gross neurological examination did not reveal any focal deficits. SKIN: No rashes. Assessment: Acute alcohol intoxication Mechanical fall secondary to intoxication with no injuries History of heart failure per patient, most recent EF of 55%, possibly diastolic heart failure with preserved EF Hypomagnesemia History of neuropathy being started on steroid infusions with neurology, to follow-up outpatient GI prophylaxis DVT prophylaxis Full code Plan: Recommend to continue with current medications and management and patient will continue on CIWA protocol. Patient has not required any Ativan and was given IV hydration with no improvement in sodium. Patient also found to be severely hypomagnesemic and will replace per protocol and also increased the daily dose of oral magnesium oxide. Patient reports she drinks heavily daily and had a fall at home as well as mechanical with no injuries and unable to get up and contacted 911 for assistance and patient found to be intoxicated and brought to the emergency department for evaluation. Patient continues to smoke tobacco and is noncompliant with medications. Patient reports she follows with neurology in the outpatient setting and was recently started on steroid infusions yesterday and extremely concerned about continuing these infusions. Discussed with the patient and will need to follow-up outpatient once discharged. Recommend continue with Accu-Cheks before meals and at bedtime and will use sliding scale for now. Recommend follow-up labs in the a.m. Encouraged increased activity as tolerated. Patient sees Dr. Rl Ellis in the outpatient setting and he will resume care in the a.m. Due to multiple complex medical issues, prognosis is guarded. Will replace electrolytes and follow-up with repeat labs in a.m. The impression and plan of care has been dictated by Scarlet Barry, nurse practitioner as directed. Dr. Saleem YO I have performed a history and examination and MDM of this patient, discussed the same with the dictator, and agree with the dictator's assessment and plan as written ,documented as a scribe. Based on total visit time, I have performed more than 50% of the visit. Any additional findings or plans will be noted. Past Medical History Past Medical History: Cancer, Heart Failure, CVA/TIA, Diabetes Mellitus, Hypertension, Myocardial Infarction ([place]), Musculoskeletal Disorder, Neurologic Disorder, Seizure Disorder Additional Past Medical History / Comment(s): "Not Diabetic anymore, last A1C was 5.0." Neuropathy of lower extremities and hands, bilateral carpal tunnel, hx CVA in 2002, affected right eye vision, now resolved, still has numbness in right hand, hx TIA's and seizures due to alcoholism, none in yrs, hx of a concussion from a fall in 2010, balance issues from Neuropathy, hx of treatment for TB at 5 yrs old, spot on liver, hx rib and left ankle fractures, hx squamous cell cancer on left forearm and right arm, current kidney stones and gallstones. Last Myocardial Infarction Date:: 2014 per EKG History of Any Multi-Drug Resistant Organisms: None Reported Date of last positivie culture/infection: None MDRO Source:: None Past Surgical History: Section, Cholecystectomy, Hernia Repair, Orthopedic Surgery, Tonsillectomy Additional Past Surgical History / Comment(s): Ventral hernia repair X4, Section X2, debridements of right foot and abdomen, colonoscopy, laparoscopy, seromas drained X2, ganglion cysts removed, left squamous cell cancer removed, cataracts removed, EGD. Past Anesthesia/Blood Transfusion Reactions: No Reported Reaction, Motion Si ckness Past Psychological History: Anxiety, Depression Additional Psychological History / Comment(s): . Smoking Status: Current every day smoker Past Alcohol Use History: Abuse, Daily, Heavy Additional Past Alcohol Use History / Comment(s): Drank 6 pack beer per day, then went to a fifth of rum a day. States "now drinks a pint daily, but haven't drank in a few days due to the surgery.". Smokes 10 cigarettes a day, started smoking in 2003 . Past Drug Use History: Marijuana Additional Drug Use History / Comment(s): No current Marijuana use. - Past Family History Father Family Medical History: No Reported History Additional Family Medical History / Comment(s): . Mother Family Medical History: Cancer Additional Family Medical History / Comment(s): breast cancer Brother(s) Additional Family Medical History / Comment(s): Patient has 1 brother that from a motor vehicle accident involving alcohol. Patient has no sisters. Patient has 1 son 21 years old and one daughter 23 years old and she has no contact with her children. Medications and Allergies Home Medications Medication Instructions Recorded Confirmed Type Metoprolol Tartrate [Lopressor] 25 mg PO BID 03/17/19 07/01/22 History Multivit with Calcium,Iron,Min 1 tab PO DAILY 05/18/19 07/01/22 History [Women's Multivitamin] metFORMIN HCL [Glucophage] 500 mg PO PC-BID 08/31/20 07/01/22 History traZODone HCL 150 mg PO HS PRN 12/23/20 07/01/22 History DULoxetine HCL [Cymbalta] 60 mg PO HS 08/07/21 07/01/22 History Biotin 5 mg PO DAILY 08/14/21 07/01/22 History Calcium Carbonate/Vitamin D3 1 tab PO DAILY 08/14/21 07/01/22 History [Calcium 500 mg-Vit D3 5 mcg (200 Unit)] Magnesium 200 mg PO DAILY 08/14/21 07/01/22 History Budesonide/Formoterol Fumarate 2 puff INHALATION RT-BID 07/01/22 07/01/22 Histo ry [Symbicort 160-4.5 Mcg Inhaler] HYDROcodone/APAP 5-325MG [Fellows 1 tab PO BID PRN 07/01/22 07/01/22 History 5-325] Losartan-Hctz 50-12.5 mg [Hyzaar 1 tab PO DAILY 07/01/22 07/01/22 History 50-12.5] Allergies Allergy/AdvReac Type Severity Reaction Status Date / Time azithromycin [From Zithromax] Allergy "had very Verified 07/01/22 07:08 bad thrush" Iodinated Contrast Media Allergy Anaphylaxis- Verified 07/01/22 07:08 [Iodinated Contrast Media - Lungs IV Dye] filled up with fluid shellfish derived [Shellfish] Allergy Swelling, Verified 07/01/22 07:08 NAUSEA pregabalin [From Lyrica] AdvReac Nausea & Verified 07/01/22 07:08 Vomiting, dizziness Physical Exam Vitals: Vital Signs Temp Pulse Pulse Resp BP BP Pulse Ox 07/01/22 05:04 97.7 F 89 18 141/90 95 07/01/22 04:08 82 12 104/63 98 07/01/22 01:37 80 16 111/61 97 06/30/22 22:24 97.7 F 75 14 96/55 93 L Intake and Output 06/30/22 07/01/22 07/01/22 22:59 06:59 14:59 Intake Total 600 Balance 600 Intake: Intake, IV Titration 200 Amount Sodium Chloride 0.9% 1, 200 000 ml @ 130 mls/hr IV . [facility] Rx#:[id number] Oral 400 Other: # Voids 1 Weight 81.647 kg 81.647 kg Results CBC & Chem 7: 06/30/22 23:16 07/01/22 09:22 Labs: Abnormal Lab Results - Last 24 Hours (Table) 06/30/22 06/30/22 07/01/22 Range/Units 23:16 23:16 02:37 WBC 2.5 L (3.8-10.6) k/uL MCH 35.3 H (25.0-35.0) pg MCHC 37.5 H (31.0-37.0) g/dL Lymphocytes # 0.5 L (1.0-4.8) k/uL Sodium 129 L (137-145) mmol/L Chloride 89 L (98-107) mmol/L Carbon Dioxide 13 L (22-30) mmol/L Glucose 219 H (74-99) mg/dL Calcium 10.4 H (8.4-10.2) mg/dL Magnesium 1.2 L (1.6-2.3) mg/dL Alkaline Phosphatase 32 L (38-126) U/L Urine Appearance Cloudy H (Clear) Urine Protein Trace H (Negative) Urine Glucose (UA) 4+ H (Negative) Urine Ketones 1+ H (Negative) Urine Bacteria Many H (None) /hpf Hyaline Casts 3 H (0-2) /lpf Urine Mucus Rare H (None) /hpf Urine Opiates Screen Detected H (NotDetected) Serum Alcohol 344 H* mg/dL Thrombosis Risk Factor Assmnt - DVT/VTE Prophylaxis DVT/VTE Prophylaxis: Pharmacologic Prophylaxis ordered - Choose All That Apply Any of the Below Risk Factors Present?: Yes Each Factor Represents 1 point: Obesity (BMI >25) Other Risk Factors: Yes Each Risk Factor Represents 2 Points: Age 61-74 years, Malignancy Other congenital or acquired thrombophilia - If yes, enter type in comment: No Thrombosis Risk Factor Assessment Total Risk Factor Score: 5 Thrombosis Risk Factor Assessment Level: High Risk Assessment and Plan Time with Patient: Greater than 30
[2022-07-01] MEDS: LORazepam 2 MG/ML INJ IV PRN (16:17)
[2022-07-01 17:10] LABS: Glucose,Whole Blood 198 mg/dL (70-110)
[2022-07-01] MEDS: SYMBICORT 160-4.5 MCG INHALER INHALATION SCH (19:29)
[2022-07-01] MEDS: DULoxetine HCL 60 MG CAPSULE.DR PO SCH (20:20)
[2022-07-01] MEDS: traZODone HCL 50 MG TAB PO PRN (20:20)
[2022-07-01 21:04] LABS: Glucose,Whole Blood 192 mg/dL (70-110)
[2022-07-02 07:11] LABS: Glucose,Whole Blood 137 mg/dL (70-110)
[2022-07-02] MEDS: INSULIN ASPART (NovoLOG) 100 UNIT/ML VIAL SQ SCH ×4 (07:35→20:38)
[2022-07-02] MEDS: SYMBICORT 160-4.5 MCG INHALER INHALATION SCH ×2 (07:39→20:27)
[2022-07-02] MEDS: MAGNESIUM OXIDE 400 MG TAB PO SCH ×2 (08:58→19:59)
[2022-07-02] MEDS: MULTIVITAMINS, THERA 1 EACH TAB PO SCH (08:58)
[2022-07-02] MEDS: THIAMINE 100 MG TAB PO SCH (08:58)
[2022-07-02] MEDS: FOLIC ACID 1 MG TAB PO SCH (08:58)
[2022-07-02] MEDS: METOPROLOL TARTRATE 25 MG TAB PO SCH ×2 (08:58→19:59)
[2022-07-02] MEDS: CALCIUM CARB-VIT D 500 MG-5 MCG TAB PO SCH (08:58)
[2022-07-02] MEDS: LOSARTAN 50 MG TAB PO SCH (08:58)
[2022-07-02] MEDS: PANTOPRAZOLE 40 MG TABLET PO SCH (08:58)
[2022-07-02] MEDS ORDERED: NON FORMULARY DRUG (Biotin [Biotin] 5 MG Capsule) PO SCH (09:00)
[2022-07-02 10:38] LABS: African American GFR (CKD) 108.4 (60.0-200.0); Anion Gap 9.8 mmol/L (10.00-18.00); BUN/Creat Ratio 12.71 Ratio (12.00-20.00); Blood Urea Nitrogen 8.9 mg/dL (9.0-27.0); Calcium 9.7 mg/dL (8.7-10.3); Carbon Dioxide 27.2 mmol/L (20.0-27.5); Magnesium 1.6 mg/dL (1.5-2.4); Non-African American GFR(CKD) 93.5 (60.0-200.0); Phosphorus 1.6 mg/dL (2.4-5.1); Potassium 4.1 mmol/L (3.5-5.5)
[2022-07-02 11:03] LABS: Basophils # (A) 0.01 X 10*3/uL (0.00-0.10); Basophils % (A) 0.2 %; Eosinophils # (A) 0.03 X 10*3/uL (0.04-0.35); Eosinophils % (A) 0.5 %; HCT 36.3 % (37.2-46.3); Immature Grans, Automated 0 %; Immature Platelet Fraction 7.8 % (1.1-6.1); Lymphocytes # (A) 2.28 X 10*3/uL (0.90-5.00); Lymphocytes % (A) 40.9 %; MCH 34.2 pg (27.0-32.0); MCHC 35.8 g/dL (32.0-37.0); MCV 95.5 fL (80.0-97.0); Mean Platelet Volume 10.5 fL (9.5-12.2); Monocytes # (A) 0.32 X 10*3/uL (0.20-1.00); Monocytes % (A) 5.7 %; NRBC Per 100 WBC 0 /100 WBCS (0.0-0.0); Neutrophils # (A) 2.94 X 10*3/uL (1.80-7.70); Neutrophils % (A) 52.7 %; Platelet Count 77 X 10*3/uL (140-440); RDW 12.1 % (11.5-14.5); WBC 5.58 X 10*3/uL (4.50-10.00)
[2022-07-02 11:46] LABS: Glucose,Whole Blood 272 mg/dL (70-110)
[2022-07-02] MEDS: HYDROcodone/APAP 5-325MG 1 EACH TAB PO PRN ×2 (15:07→20:15)
[2022-07-02 17:15] LABS: Glucose,Whole Blood 127 mg/dL (70-110)
[2022-07-02] MEDS: DULoxetine HCL 60 MG CAPSULE.DR PO SCH (19:59)
[2022-07-02] MEDS: LORazepam 2 MG/ML INJ IV PRN (20:15)
[2022-07-02] MEDS: traZODone HCL 50 MG TAB PO PRN (20:17)
[2022-07-02 20:22] LABS: Glucose,Whole Blood 198 mg/dL (70-110)
[2022-07-03 07:03] LABS: Glucose,Whole Blood 136 mg/dL (70-110)
[2022-07-03] MEDS: INSULIN ASPART (NovoLOG) 100 UNIT/ML VIAL SQ SCH ×4 (07:33→20:54)
[2022-07-03] MEDS: SYMBICORT 160-4.5 MCG INHALER INHALATION SCH ×2 (08:47→20:01)
[2022-07-03] MEDS: MULTIVITAMINS, THERA 1 EACH TAB PO SCH (08:53)
[2022-07-03] MEDS: HYDROcodone/APAP 5-325MG 1 EACH TAB PO PRN ×2 (08:53→20:58)
[2022-07-03] MEDS: THIAMINE 100 MG TAB PO SCH (08:53)
[2022-07-03] MEDS: LOSARTAN 50 MG TAB PO SCH (08:53)
[2022-07-03] MEDS: CALCIUM CARB-VIT D 500 MG-5 MCG TAB PO SCH (08:53)
[2022-07-03] MEDS: FOLIC ACID 1 MG TAB PO SCH (08:53)
[2022-07-03] MEDS: MAGNESIUM OXIDE 400 MG TAB PO SCH ×2 (08:53→20:54)
[2022-07-03] MEDS: PANTOPRAZOLE 40 MG TABLET PO SCH (08:54)
[2022-07-03] MEDS: METOPROLOL TARTRATE 25 MG TAB PO SCH ×2 (08:54→20:54)
[2022-07-03 11:09] LABS: Glucose,Whole Blood 166 mg/dL (70-110)
[2022-07-03 12:02] VITALS: RESP 18
--- NOTE | 2022-07-03 13:08 | P.PN ---
Subjective Progress Note Date: 07/02/22 This a pleasantly debilitated 61-year-old white female who was admitted for acute alcohol intoxication hyponatremia and hypomagnesemia. With dehydration and metabolic encephalopathy. She feels better today no vomiting no tremors no seizures. Objective - Vital Signs Vital signs: Vital Signs Temp 98.1 F 07/02/22 05:31 Pulse 75 07/02/22 05:31 Resp 16 07/02/22 05:31 BP 174/83 07/02/22 05:31 Pulse Ox 94 L 07/02/22 05:31 FiO2 Intake & Output 07/01/22 07/02/22 07/02/22 18:59 06:59 18:59 Intake Total 1340 590 Balance 1340 590 Intake: Intake, IV Titration 1340 Amount Magnesium Sulfate-D5w Pmx 300 1 gm In Dextrose/Water 1 100ml.bag @ 100 mls/hr IVPB Q1H [facility] Rx#: [id number] Sodium Chloride 0.9% 1, 1040 000 ml @ 130 mls/hr IV . Q7H42M [facility] Rx#:[id number] Oral 590 Other: # Voids 1 2 1 - Exam GENERAL: The patient is alert and oriented x4, Well developed, well nourished. HEENT: Pupils are round and equally reacting to light. EOMI. no scleral icterus. No conjunctival pallor. Normocephalic, atraumatic. No pharyngeal erythema. No thyromegaly. CARDIOVASCULAR: S1 and S2 muffled PULMONARY: diminished breath sounds bilaterally with no wheezing or rhonchi noted. ABDOMEN: soft. Nontender on exam. obese. non-distended, normoactive bowel sounds. No palpable organomegaly. MUSCULOSKELETAL: No joint swelling or deformity. EXTREMITIES: No cyanosis, clubbing, or pedal edema. NEUROLOGICAL: Gross neurological examination did not reveal any focal deficits. SKIN: No rashes. - Labs CBC & Chem 7: 07/02/22 07:00 07/02/22 07:00 Labs: Abnormal Lab Results - Last 24 Hours (Table) 07/01/22 07/01/22 07/01/22 Range/Units 12:12 17:09 21:01 RBC (4.10-5.20) X 10*6/uL Hct (37.2-46.3) % MCH (27.0-32.0) pg Plt Count (140-440) X 10*3/uL Plt Count Comment Eosinophils # (0.04-0.35) X 10*3/uL Immature Plt Fraction (1.1-6.1) % Sodium (135-145) mmol/L Chloride (96-109) mmol/L Anion Gap (10.00-18.00) mmol/L BUN (9.0-27.0) mg/dL Glucose (70-110) mg/dL POC Glucose (mg/dL) 247 H 198 H 192 H (70-110) mg/dL Phosphorus (2.4-5.1) mg/dL Alkaline Phosphatase (41-126) U/L Total Protein (6.2-8.2) g/dL 07/02/22 07/02/22 07/02/22 Range/Units 07:00 07:00 07:10 RBC 3.80 L (4.10-5.20) X 10*6/uL Hct 36.3 L (37.2-46.3) % MCH 34.2 H (27.0-32.0) pg Plt Count 77 L (140-440) X 10*3/uL Plt Count Comment DECREASED A Eosinophils # 0.03 L (0.04-0.35) X 10*3/uL Immature Plt Fraction 7.8 H (1.1-6.1) % Sodium 130 L (135-145) mmol/L Chloride 93 L (96-109) mmol/L Anion Gap 9.80 L (10.00-18.00) mmol/L BUN 8.9 L (9.0-27.0) mg/dL Glucose 128 H (70-110) mg/dL POC Glucose (mg/dL) 137 H (70-110) mg/dL Phosphorus 1.6 L (2.4-5.1) mg/dL Alkaline Phosphatase 31 L (41-126) U/L Total Protein 6.0 L (6.2-8.2) g/dL 07/02/22 Range/Units 11:45 RBC (4.10-5.20) X 10*6/uL Hct (37.2-46.3) % MCH (27.0-32.0) pg Plt Count (140-440) X 10*3/uL Plt Count Comment Eosinophils # (0.04-0.35) X 10*3/uL Immature Plt Fraction (1.1-6.1) % Sodium (135-145) mmol/L Chloride (96-109) mmol/L Anion Gap (10.00-18.00) mmol/L BUN (9.0-27.0) mg/dL Glucose (70-110) mg/dL POC Glucose (mg/dL) 272 H (70-110) mg/dL Phosphorus (2.4-5.1) mg/dL Alkaline Phosphatase (41-126) U/L Total Protein (6.2-8.2) g/dL Assessment and Plan (1) Dehydration Current Visit: Yes Status: Acute Code(s): E86.0 - DEHYDRATION SNOMED Code(s): 21690449 (2) Metabolic encephalopathy Current Visit: Yes Status: Acute Code(s): G93.41 - METABOLIC ENCEPHALOPATHY SNOMED Code(s): 52894163 (3) Alcohol intoxication Current Visit: Yes Status: Acute Code(s): F10.129 - ALCOHOL ABUSE WITH INTOXICATION, UNSPECIFIED SNOMED Code(s): 79924741 (4) Alcohol use disorder, severe, dependence Current Visit: Yes Status: Acute Priority: High Code(s): F10.20 - ALCOHOL DEPENDENCE, UNCOMPLICATED SNOMED Code(s): 814227401 (5) Depression Current Visit: Yes Status: Acute Code(s): F32.9 - MAJOR DEPRESSIVE DISORDER, SINGLE EPISODE, UNSPECIFIED SNOMED Code(s): 41461058 (6) Hypomagnesemia Current Visit: Yes Status: Acute Code(s): E83.42 - HYPOMAGNESEMIA SNOMED Code(s): 089274688 (7) Mood disorder Current Visit: Yes Status: Acute Code(s): F39 - UNSPECIFIED MOOD [AFFECTIVE] DISORDER SNOMED Code(s): 59173739411733 Plan: Continue IV hydration IV replacement of electrolytes and magnesium continue to monitor metabolic encephalopathy. So far no withdrawal symptoms from alcohol continue to monitor for seizures.
[2022-07-03 14:16] LABS: HGB 13.2 gm/dL (11.4-16.0); MCH 35.3 pg (25.0-35.0); MCHC 36.6 g/dL (31.0-37.0); MCV 96.5 fL (80.0-100.0); Platelet Count 112 k/uL (150-450); RBC 3.73 m/uL (3.80-5.40); RDW 12.4 % (11.5-15.5); WBC 3.7 k/uL (3.8-10.6)
[2022-07-03 14:31] LABS: African American GFR (CKD) >90 (>60 ml/min/1.73 sqM); Anion Gap 3 mmol/L; Blood Urea Nitrogen 7 mg/dL (7-17); Calcium 8.5 mg/dL (8.4-10.2); Carbon Dioxide 28 mmol/L (22-30); Chloride 98 mmol/L (98-107); Glucose 205 mg/dL (74-99); Magnesium 1.3 mg/dL (1.6-2.3); Non-African American GFR(CKD) >90 (>60 ml/min/1.73 sqM); Potassium 3.7 mmol/L (3.5-5.1); Sodium 129 mmol/L (137-145)
[2022-07-03] MEDS: MAGNESIUM SULFATE-D5W PMX 1 GM in DEXTROSE/WATER 1 100ML.BAG IVPB SCH ×3 (16:44→20:05)
[2022-07-03 17:13] LABS: Glucose,Whole Blood 179 mg/dL (70-110)
[2022-07-03] MEDS: LORazepam 2 MG/ML INJ IV PRN (19:03)
--- NOTE | 2022-07-03 20:15 | P.PN ---
Subjective Progress Note Date: 07/03/22 This a pleasantly debilitated 61-year-old white female who was admitted for acute alcohol intoxication hyponatremia and hypomagnesemia. With dehydration and metabolic encephalopathy. She feels better today no vomiting no tremors no seizures. Objective - Vital Signs Vital signs: Vital Signs Temp 98.1 F 07/03/22 11:21 Pulse 68 07/03/22 11:21 Resp 18 07/03/22 11:21 BP 170/82 07/03/22 11:21 Pulse Ox 97 07/03/22 11:21 FiO2 Intake & Output 07/02/22 07/03/22 07/03/22 18:59 06:59 18:59 Other: Voiding Method Toilet # Voids 3 2 - Exam GENERAL: The patient is alert and oriented x4, Well developed, well nourished. HEENT: Pupils are round and equally reacting to light. EOMI. no scleral icterus. No conjunctival pallor. Normocephalic, atraumatic. No pharyngeal erythema. No thyromegaly. CARDIOVASCULAR: S1 and S2 muffled PULMONARY: diminished breath sounds bilaterally with no wheezing or rhonchi noted. ABDOMEN: soft. Nontender on exam. obese. non-distended, normoactive bowel sounds. No palpable organomegaly. MUSCULOSKELETAL: No joint swelling or deformity. EXTREMITIES: No cyanosis, clubbing, or pedal edema. NEUROLOGICAL: Gross neurological examination did not reveal any focal deficits. SKIN: No rashes. - Labs CBC & Chem 7: 07/03/22 13:59 07/03/22 13:59 Labs: Abnormal Lab Results - Last 24 Hours (Table) 07/02/22 07/02/22 07/03/22 Range/Units 17:14 20:21 07:01 POC Glucose (mg/dL) 127 H 198 H 136 H (70-110) mg/dL 07/03/22 Range/Units 11:06 POC Glucose (mg/dL) 166 H (70-110) mg/dL Assessment and Plan (1) Dehydration Current Visit: Yes Status: Acute Code(s): E86.0 - DEHYDRATION SNOMED Code(s): 15789543 (2) Metabolic encephalopathy Current Visit: Yes Status: Acute Code(s): G93.41 - METABOLIC ENCEPHALOPATHY SNOMED Code(s): 92382418 (3) Alcohol intoxication Current Visit: Yes Status: Acute Code(s): F10.129 - ALCOHOL ABUSE WITH INTOXICATION, UNSPECIFIED SNOMED Code(s): 73818592 (4) Alcohol use disorder, severe, dependence Current Visit: Yes Status: Acute Priority: High Code(s): F10.20 - ALCOHOL DEPENDENCE, UNCOMPLICATED SNOMED Code(s): 688461190 (5) Depression Current Visit: Yes Status: Acute Code(s): F32.9 - MAJOR DEPRESSIVE DISORDER, SINGLE EPISODE, UNSPECIFIED SNOMED Code(s): 69837988 (6) Hypomagnesemia Current Visit: Yes Status: Acute Code(s): E83.42 - HYPOMAGNESEMIA SNOMED Code(s): 337208723 (7) Mood disorder Current Visit: Yes Status: Acute Code(s): F39 - UNSPECIFIED MOOD [AFFECTIVE] DISORDER SNOMED Code(s): 95323740445215 Plan: Continue IV hydration IV replacement of electrolytes and magnesium continue to monitor metabolic encephalopathy. So far no withdrawal symptoms from alcohol continue to monitor for seizures.Sodium dipped to 129 and magnesium went down today as well we will go ahead and replace both electrolytes and see about discharge in the morning if patient is stable.
[2022-07-03 20:18] LABS: Glucose,Whole Blood 191 mg/dL (70-110)
[2022-07-03] MEDS: DULoxetine HCL 60 MG CAPSULE.DR PO SCH (20:54)
[2022-07-03] MEDS: traZODone HCL 50 MG TAB PO PRN (21:59)
[2022-07-04] MEDS ORDERED: SODIUM CHLORIDE TAB 1 GM TAB PO ONE
[2022-07-04 07:02] LABS: Glucose,Whole Blood 151 mg/dL (70-110)
[2022-07-04 07:47] VITALS: BP 196/93; PULSE 78; TEMP 98.1
[2022-07-04 07:55] LABS: African American GFR (CKD) >90 (>60 ml/min/1.73 sqM); Anion Gap 3 mmol/L; Blood Urea Nitrogen 5 mg/dL (7-17); Calcium 8.6 mg/dL (8.4-10.2); Carbon Dioxide 31 mmol/L (22-30); Chloride 99 mmol/L (98-107); Glucose 143 mg/dL (74-99); Magnesium 1.8 mg/dL (1.6-2.3); Non-African American GFR(CKD) >90 (>60 ml/min/1.73 sqM); Potassium 3.8 mmol/L (3.5-5.1); Sodium 133 mmol/L (137-145)
[2022-07-04] MEDS: THIAMINE 100 MG TAB PO SCH (08:40)
[2022-07-04] MEDS: LOSARTAN 50 MG TAB PO SCH (08:40)
[2022-07-04] MEDS: CALCIUM CARB-VIT D 500 MG-5 MCG TAB PO SCH (08:40)
[2022-07-04] MEDS: INSULIN ASPART (NovoLOG) 100 UNIT/ML VIAL SQ SCH ×2 (08:40→11:17)
[2022-07-04] MEDS: MULTIVITAMINS, THERA 1 EACH TAB PO SCH (08:41)
[2022-07-04] MEDS: PANTOPRAZOLE 40 MG TABLET PO SCH (08:41)
[2022-07-04] MEDS: METOPROLOL TARTRATE 25 MG TAB PO SCH (08:41)
[2022-07-04] MEDS: FOLIC ACID 1 MG TAB PO SCH (08:41)
[2022-07-04] MEDS: HYDROcodone/APAP 5-325MG 1 EACH TAB PO PRN (08:41)
[2022-07-04] MEDS ORDERED: MAGNESIUM OXIDE 400 MG TAB PO SCH (09:00)
[2022-07-04] MEDS: SYMBICORT 160-4.5 MCG INHALER INHALATION SCH (09:03)
[2022-07-04 11:09] LABS: Glucose,Whole Blood 149 mg/dL (70-110)
--- NOTE | 2022-07-07 09:06 | P.DS ---
Providers Date of admission: 07/01/22 00:34 Expected date of discharge: 07/04/22 Attending physician: Rl Ellis Primary care physician: Rl Ellis Hospital Course: Final diagnosis Dehydration Metabolic encephalopathy secondary to above Alcohol intoxication Continued ongoing alcohol abuse History of depression Hypomagnesemia Mood disorder Discharge disposition Patient is being discharged in a stable condition with guarded prognosis to home . Patient will follow-up with Dr. Rl Ellis in the outpatient setting upon discharge. Patient is to continue current medications as prescribed. Patient encouraged to follow-up with AA meetings and possible alcohol rehab. Recommend repeat labs in the next few days. Total time taken is greater than 35 minutes. Hospital course This is a 61-year-old female who was recently admitted with acute alcohol intoxication also found to have electrolyte abnormalities. Patient was hydrated and maintained on CIWA protocol. Electrolytes replaced and adjustments made to daily medication supplementation and recommend follow-up in the next few days with repeat labs. Patient also encouraged to follow-up on low sodium levels. Encouraged complete alcohol cessation and AA meetings along with possible alcohol rehab. Currently no reports of chest pain, shortness of breath, or palpitations. Patient is afebrile. No reports of nausea or vomiting and patient is tolerating diet. Patient will be discharged home today. Guarded prognosis with high risk for readmissions due to continued alcohol use Physical exam: Gen: This is a 61-year-old female who is awake, alert and oriented 3, well-d eveloped, well-nourished, obese HEENT: Head is atraumatic, normocephalic. Pupils equal, round. Sclerae is anicteric. NECK: Supple. No JVD. No lymphadenopathy. No thyromegaly. LUNGS: Diminished breath sounds bilaterally with no wheezes or rhonchi. No intercostal retractions. HEART: S1, S2 are muffled ABDOMEN: Soft. Bowel sounds are present. No masses. No tenderness. EXTREMITIES: No pedal edema. No calf tenderness. NEUROLOGICAL: Patient is awake, alert and oriented x3. Cranial nerves 2 through 12 are grossly intact. Please refer to medication reconciliation sheet for a list of medications. The impression and plan of care has been dictated by Scarlet Barry, Nurse Practitioner as directed. Dr. Steve MD I have performed a history and examination and MDM of this patient, discussed the same with the dictator, and agree with the dictator's assessment and plan as written ,documented as a scribe. Based on total visit time, I have performed more than 50% of the visit. Patient Condition at Discharge: Stable Plan - Discharge Summary Discharge Rx Participant: No New Discharge Prescriptions: New Folic Acid 1 mg PO DAILY #30 tab Magnesium Oxide [Mag-Ox] 400 mg PO TID 30 Days #90 tab Thiamine [Vitamin B-1] 100 mg PO DAILY 30 Days #30 tab Continue Metoprolol Tartrate [Lopressor] 25 mg PO BID Multivit with Calcium,Iron,Min [Women's Multivitamin] 1 tab PO DAILY metFORMIN HCL [Glucophage] 500 mg PO PC-BID DULoxetine HCL [Cymbalta] 60 mg PO HS Calcium Carbonate/Vitamin D3 [Calcium 500 mg-Vit D3 5 mcg (200 Unit)] 1 tab PO DAILY traZODone HCL 150 mg PO HS PRN PRN Reason: Insomnia Biotin 5 mg PO DAILY Losartan-Hctz 50-12.5 mg [Hyzaar 50-12.5] 1 tab PO DAILY HYDROcodone/APAP 5-325MG [[place] 5-325] 1 tab PO BID PRN PRN Reason: Pain Budesonide/Formoterol Fumarate [Symbicort 160-4.5 Mcg Inhaler] 2 puff INHALATION RT-BID Discontinued Magnesium 200 mg PO DAILY Discharge Medication List Metoprolol Tartrate [Lopressor] 25 mg PO BID 03/17/19 [History] Multivit with Calcium,Iron,Min [Women's Multivitamin] 1 tab PO DAILY 05/18/19 [History] metFORMIN HCL [Glucophage] 500 mg PO PC-BID 08/31/20 [History] traZODone HCL 150 mg PO HS PRN 12/23/20 [History] DULoxetine HCL [Cymbalta] 60 mg PO HS 08/07/21 [History] Biotin 5 mg PO DAILY 08/14/21 [History] Calcium Carbonate/Vitamin D3 [Calcium 500 mg-Vit D3 5 mcg (200 Unit)] 1 tab PO DAILY 08/14/21 [History] Budesonide/Formoterol Fumarate [Symbicort 160-4.5 Mcg Inhaler] 2 puff INHALATION RT-BID 07/01/22 [History] HYDROcodone/APAP 5-325MG [[place] 5-325] 1 tab PO BID PRN 07/01/22 [History] Losartan-Hctz 50-12.5 mg [Hyzaar 50-12.5] 1 tab PO DAILY 07/01/22 [History] Folic Acid 1 mg PO DAILY #30 tab 07/04/22 [Rx] Magnesium Oxide [Mag-Ox] 400 mg PO TID 30 Days #90 tab 07/04/22 [Rx] Thiamine [Vitamin B-1] 100 mg PO DAILY 30 Days #30 tab 07/04/22 [Rx] Follow up Appointment(s)/Referral(s): Rl Ellis DO [Primary Care Provider] - 1 Week (please call fofr appointment.) Ambulatory/Diagnostic Orders: Basic Metabolic Panel [LAB.AMB] Time Frame: 3 Days, Location: None Selected Patient Instructions/Handouts: Abuse of Alcohol (DC) Activity/Diet/Wound Care/Special Instructions: Activity Limited until follow-up Follow-up with primary care provider next week Continue taking medications as prescribed Follow-up repeat labs early next week Avoid all alcohol intake Discharge/Stand Alone Forms: AA Meetings [place], [facility], Outpatient Counseling, Inp Substance Abuse Facilities, Personal Specialized Developer Discharge Disposition: HOME SELF-CARE
== END 2022-07-04 14:39 | disposition home or self-care (01) | DRG 896 ==
LOC: EC 22:15 → 4SSUR 07-01 00:34 → 6NMEDSUR 07-01 02:01 → 5NMEDONC 07-01 03:50
PROVIDERS: ADMIT Family Medicine; ATTEND Family Medicine
DX: F10.229 Alcohol dependence with intoxication, unspecified (principal); G93.41 Metabolic encephalopathy; I50.32 Chronic diastolic (congestive) heart failure; E87.1 Hypo-osmolality and hyponatremia; E83.42 Hypomagnesemia; I11.0 Hypertensive heart disease with heart failure; E11.42 Type 2 diabetes mellitus with diabetic polyneuropathy; E86.0 Dehydration; G40.909 Epilepsy, unspecified, not intractable, without status epilepticus; Y90.8 Blood alcohol level of 240 mg/100 ml or more; F32.9 Major depressive disorder, single episode, unspecified; F41.9 Anxiety disorder, unspecified; I25.2 Old myocardial infarction; T50.906A Underdosing of unspecified drugs, medicaments and biological substances, initial encounter; Z91.128 Patient's intentional underdosing of medication regimen for other reason; Z79.51 Long term (current) use of inhaled steroids; Z79.84 Long term (current) use of oral hypoglycemic drugs; Z79.899 Other long term (current) drug therapy; Z85.828 Personal history of other malignant neoplasm of skin; Z86.73 Personal history of transient ischemic attack (TIA), and cerebral infarction without residual deficits; Z86.11 Personal history of tuberculosis; Z88.8 Allergy status to other drugs, medicaments and biological substances; Z88.1 Allergy status to other antibiotic agents; Z91.041 Radiographic dye allergy status; Z91.013 Allergy to seafood; F17.210 Nicotine dependence, cigarettes, uncomplicated; Z71.6 Tobacco abuse counseling; Z91.81 History of falling; W18.30XA Fall on same level, unspecified, initial encounter; Y92.009 Unspecified place in unspecified non-institutional (private) residence as the place of occurrence of the external cause
CPT/HCPCS: 36415; 80048; 80053; 80143; 80179; 80306; 80320; 81001; 83036; 83690; 83735; 84100; 85025; 85027; 85610; 96361; 96365; 96372; 99285

== ENCOUNTER 2022-12-22 12:19 | Inpatient (IN) | payer MEDICARE ==
[2022-12-22] MEDS ORDERED: SODIUM CHLORIDE 0.9% 1,000 ML IV STA (12:34)
--- NOTE | 2022-12-22 12:34 | ED ---
General Adult HPI - General Chief complaint: Weakness Stated complaint: weakness Time Seen by Provider: 12/22/22 12:21 Source: patient, EMS Mode of arrival: EMS Limitations: no limitations - History of Present Illness Initial comments: Dictation was produced using [employer] dictation software. please excuse any grammatical, word or spelling errors. Chief Complaint: 62-year-old alcoholic female presents to the ER for weakness History of Present Illness: Patient is 60-year-old female she reports history of hypertension diabetes. She presents to the ER for weakness for approximately 3- 4 days. According to EMS patient is allegedly very familiar with patient. They state they see the patient often for frequent falls. Patient having worsening weakness. Chest thing no other complaints at this time. Patient denies any pain. States that she deals with neuropathy to her lower extremities. Patient drinks one to 2 pints of liquor almost daily. She states that she has not been admitted for withdrawals in the past. Denies any fever or constitutional symptoms. She feels weak to both her legs. Denies any upper extremity weakn ess. Denies any respiratory issues. The ROS documented in this emergency department record has been reviewed and confirmed by me. Those systems with pertinent positive or negative responses have been documented in the HPI. All other systems are other negative and/or noncontributory. - Related Data Home Medications Medication Instructions Recorded Confirmed Metoprolol Tartrate [Lopressor] 25 mg PO BID 03/17/19 12/22/22 Multivit with Calcium,Iron,Min 1 tab PO DAILY 05/18/19 12/22/22 [Women's Multivitamin] metFORMIN HCL [Glucophage] 500 mg PO BID 08/31/20 12/22/22 traZODone HCL 150 mg PO HS 12/23/20 12/22/22 DULoxetine HCL [Cymbalta] 60 mg PO HS 08/07/21 12/22/22 Biotin 5 mg PO DAILY 08/14/21 12/22/22 HYDROcodone/APAP 5-325MG [[place] 1 tab PO BID PRN 07/01/22 12/22/22 5-325] Losartan-Hctz 50-12.5 mg [Hyzaar 1 tab PO DAILY 07/01/22 12/22/22 50-12.5] Calcium Carbonate [Calcium] 600 mg PO DAILY 12/22/22 12/22/22 Vitamin B Complex 1 cap PO DAILY 12/22/22 12/22/22 Allergies Allergy/AdvReac Type Severity Reaction Status Date / Time azithromycin [From Zithromax] Allergy "had very Verified 12/22/22 13:28 bad thrush" Iodinated Contrast Media Allergy Anaphylaxis- Verified 12/22/22 13:28 [Iodinated Contrast Media - Lungs IV Dye] filled up with fluid shellfish derived [Shellfish] Allergy Swelling, Verified 12/22/22 13:28 NAUSEA pregabalin [From Lyrica] AdvReac Nausea & Verified 12/22/22 13:28 Vomiting, dizziness Review of Systems ROS Statement: Those systems with pertinent positive or pertinent negative responses have been documented in the HPI. ROS Other: All systems not noted in ROS Statement are negative. Past Medical History Past Medical History: Cancer, Heart Failure, CVA/TIA, Diabetes Mellitus, Hyper tension, Myocardial Infarction (SC), Musculoskeletal Disorder, Neurologic Disorder, Seizure Disorder Additional Past Medical History / Comment(s): "Not Diabetic anymore, last A1C was 5.0." Neuropathy of lower extremities and hands, bilateral carpal tunnel, hx CVA in 2002, affected right eye vision, now resolved, still has numbness in right hand, hx TIA's and seizures due to alcoholism, none in yrs, hx of a concussion from a fall in 2010, balance issues from Neuropathy, hx of treatment for TB at 5 yrs old, spot on liver, hx rib and left ankle fractures, hx squamous cell cancer on left forearm and right arm, current kidney stones and gallstones. Last Myocardial Infarction Date:: 2014 per EKG History of Any Multi-Drug Resistant Organisms: None Reported Date of last positivie culture/infection: None MDRO Source:: None Past Surgical History: Section, Cholecystectomy, Hernia Repair, Orthopedic Surgery, Tonsillectomy Additional Past Surgical History / Comment(s): Ventral hernia repair X4, Section X2, debridements of right foot and abdomen, colonoscopy, laparoscopy, seromas drained X2, ganglion cysts removed, left squamous cell cancer removed, cataracts removed, EGD. Past Anesthesia/Blood Transfusion Reactions: No Reported Reaction, Motion Sickness Past Psychological History: Anxiety, Depression Smoking Status: Current every day smoker Past Alcohol Use History: Abuse, Daily, Heavy Past Drug Use History: Marijuana - Past Family History Father Family Medical History: No Reported History Additional Family Medical History / Comment(s): . Mother Family Medical History: Cancer Additional Family Medical History / Comment(s): breast cancer Brother(s) Additional Family Medical History / Comment(s): Patient has 1 brother that from a motor vehicle accident involving alcohol. Patient has no sisters. Patient has 1 son 21 years old and one daughter 23 years old and she has no contact with her children. General Exam - General Exam Comments Initial Comments: PHYSICAL EXAM: General Impression: Alert and oriented x3, not in acute distress, tremulous HEENT: Normocephalic atraumatic, extra-ocular movements intact, pupils equal and reactive to light bilaterally, mucous membranes moist. Cardiovascular: Heart regular rate and rhythm Chest: Able to complete full sentences, no retractions, no tachypnea Abdomen: abdomen soft, non-tender, non-distended, no organomegaly Musculoskeletal: Pulses present and equal in all extremities, no peripheral edema Motor: no focal deficits noted Neurological: CN II-XII grossly intact, no focal motor or sensory deficits noted Skin: Intact with no visualized rashes Psych: Normal affect and mood Limitations: no limitations Course Vital Signs 12/22/22 12:20 Temperature 97.7 F Pulse Rate 104 H Respiratory 20 Rate Blood Pressure 180/91 O2 Sat by Pulse 92 L Oximetry EKG Findings - EKG Comments: EKG Findings:: My EKG interpretation: Ventricular rate 81, sinus rhythm,. Interval 162, QRS 94, QTC 411. No OR prolongation, no QTC prolongation, no ST or T-wave changes noted. Overall, this EKG is unremarkable Medical Decision Making - Medical Decision Making Was pt. sent in by a medical professional or institution (, PA, IT SUPPORT SPECIALIST, urgent care, hospital, or care home...) When possible be specific @ -No Did you speak to anyone other than the patient for history (EMS, parent, family, police, friend...)? What history was obtained from this source @ -No Did you review nursing and triage notes (agree or disagree)? Why? @ -I reviewed and agree with nursing and triage notes Were old charts reviewed (outside hosp., previous admission, EMS record, old EKG, old radiological studies, urgent care reports/EKG's, care home records)? Report findings @ -No old charts were reviewed Differential Diagnosis (chest pain, altered mental status, abdominal pain women, abdominal pain men, vaginal bleeding, musculoskeletal, weakness, fever, dyspnea, syncope, headache, dizziness, GI bleed, back pain, seizure, CVA, palpatations, mental health)? @ -Differential Weakness: Hypoglycemia, shock, sepsis, hyponatremia, anemia, infection, SC, ETOH, adverse medicine reaction, overdose, stroke, this is not meant to be an all-inclusive list. EKG interpreted by me (3pts min.). @ -See above X-rays interpreted by me (1pt min.). @ -None done CT interpreted by me (1pt min.). @ -None done U/S interpreted by me (1pt. min.). @ -None done What testing was considered but not performed or refused? (CT, X-rays, U/S, labs)? Why? @ -None What meds were considered but not given or refused? Why? @ -None Did you discuss the management of the patient with other professionals (professionals i.e. , PA, IT SUPPORT SPECIALIST, lab, RT, psych nurse, social media marketing specialist, tree pruner, teacher, credit risk officer, window caser)? Give summary @ -Lab abnormalities clinical presentation discussed with Dr. Rl Ellis for admission Was smoking cessation discussed for >3mins.? @ -No Was critical care preformed (if so, how long)? @ -No Were there social determinants of health that impacted care today? How? (Homelessness, low income, unemployed, alcoholism, drug addiction, tr ansportation, low edu. Level, literacy, decrease access to med. care, nursing home, rehab)? @ -No Was there de-escalation of care discussed even if they declined (Discuss DNR or withdrawal of care, Hospice)? DNR status @ -No What co-morbidities impacted this encounter? (DM, HTN, Smoking, COPD, CAD, Cancer, CVA, ARF, Chemo, Hep., AIDS, mental health diagnosis, sleep apnea, morbid obesity)? @ -None Was patient admitted / discharged? Hospital course, mention meds given and route, prescriptions, significant lab abnormalities, going to OR and other pertinent info. @ -62-year-old female presents to the emergency department with generalized weakness. Vital signs are stable. Laboratory evaluation obtained. CBC is unremarkable. Metabolic panel shows hypomagnesemia of 0.8. This allows within acceptable limits. Patient be admitted. She is given IV magnesium Undiagnosed new problem with uncertain prognosis? @ -No Drug Therapy requiring intensive monitoring for toxicity (Heparin, Nitro, Insulin, Cardizem)? @ -No Were any procedures done? @ -No Diagnosis/symptom? Acute, or Chronic, or Acute on Chronic? Uncomplicated (without systemic symptoms) or Complicated (systemic symptoms)? @ -Critical hypomagnesemia Side effects of treatment? @ -No Exacerbation, Progression, or Severe Exacerbation? @ -No Poses a threat to life or bodily function? How? (Chest pain, USA, SC, pneumonia, PE, COPD, DKA, ARF, appy, cholecystitis, CVA, Diverticulitis, Homicidal, Suicidal, threat to staff... and all critical care pts) @ -yes - Lab Data Result diagrams: 12/22/22 12:50 12/22/22 12:50 Lab Results 12/22/22 12/22/22 12/22/22 Range/Units 12:50 12:50 12:50 WBC 5.2 (3.8-10.6) k/uL RBC 3.84 (3.80-5.40) m/uL Hgb 13.4 (11.4-16.0) gm/dL Hct 38.2 (34.0-46.0) % MCV 99.5 (80.0-100.0) fL MCH 34.9 (25.0-35.0) pg MCHC 35.1 (31.0-37.0) g/dL RDW 14.5 (11.5-15.5) % Plt Count 148 L (150-450) k/uL MPV 8.9 Neutrophils % 77 % Lymphocytes % 16 % Monocytes % 5 % Eosinophils % 0 % Basophils % 0 % Neutrophils # 4.0 (1.3-7.7) k/uL Lymphocytes # 0.8 L (1.0-4.8) k/uL Monocytes # 0.3 (0-1.0) k/uL Eosinophils # 0.0 (0-0.7) k/uL Basophils # 0.0 (0-0.2) k/uL Poikilocytosis Slight Macrocytosis Slight Sodium 131 L (137-145) mmol/L Potassium 3.6 (3.5-5.1) mmol/L Chloride 90 L (98-107) mmol/L Carbon Dioxide 30 (22-30) mmol/L Anion Gap 11 mmol/L BUN 3 L (7-17) mg/dL Creatinine 0.52 (0.52-1.04) mg/dL Est GFR (CKD-EPI)AfAm >90 (>60 ml/min/1.73 sqM) Est GFR (CKD-EPI)NonAf >90 (>60 ml/min/1.73 sqM) Glucose 130 H (74-99) mg/dL Calcium 10.1 (8.4-10.2) mg/dL Magnesium 0.8 L* (1.6-2.3) mg/dL Total Bilirubin 1.1 (0.2-1.3) mg/dL AST 37 H (14-36) U/L ALT 32 (4-34) U/L Alkaline Phosphatase 35 L (38-126) U/L Troponin I 0.016 (0.000-0.034) ng/mL Total Protein 6.0 L (6.3-8.2) g/dL Albumin 4.0 (3.5-5.0) g/dL Serum Alcohol <10 mg/dL Disposition Clinical Impression: Hypomagnesemia Disposition: ADMITTED IP TO THIS [facility] Condition: Fair Referrals: Rl Ellis DO [Primary Care Provider] - 1-2 days Decision Time: 14:36
[2022-12-22 13:16] LABS: Basophils % (A) 0 %; Eosinophils % (A) 0 %; HCT 38.2 % (34.0-46.0); HGB 13.4 gm/dL (11.4-16.0); Lymphocytes # (A) 0.8 k/uL (1.0-4.8); Lymphocytes % (A) 16 %; MCH 34.9 pg (25.0-35.0); MCHC 35.1 g/dL (31.0-37.0); MCV 99.5 fL (80.0-100.0); Macrocytosis Slight; Mean Platelet Volume 8.9; Monocytes # (A) 0.3 k/uL (0-1.0); Monocytes % (A) 5 %; Neutrophils % (A) 77 %; Platelet Count 148 k/uL (150-450); Poikilocytosis Slight; RBC 3.84 m/uL (3.80-5.40); RDW 14.5 % (11.5-15.5); WBC 5.2 k/uL (3.8-10.6)
[2022-12-22 13:17] LABS: ALT 32 U/L (4-34); AST 37 U/L (14-36); African American GFR (CKD) >90 (>60 ml/min/1.73 sqM); Alcohol <10 mg/dL; Alkaline Phosphatase 35 U/L (38-126); Anion Gap 11 mmol/L; Blood Urea Nitrogen 3 mg/dL (7-17); Calcium 10.1 mg/dL (8.4-10.2); Carbon Dioxide 30 mmol/L (22-30); Chloride 90 mmol/L (98-107); Glucose 130 mg/dL (74-99); Non-African American GFR(CKD) >90 (>60 ml/min/1.73 sqM); Potassium 3.6 mmol/L (3.5-5.1); Sodium 131 mmol/L (137-145); Total Bilirubin 1.1 mg/dL (0.2-1.3)
[2022-12-22 13:26] LABS: Magnesium 0.8 mg/dL (1.6-2.3)
[2022-12-22] MEDS: MAGNESIUM SULFATE-D5W PMX 1 GM in DEXTROSE/WATER 1 100ML.BAG IVPB SCH ×2 (13:39→14:37)
[2022-12-22] MEDS ORDERED: NALOXONE 0.4 MG/ML 1 ML VIAL IV PRN (14:32)
[2022-12-22] MEDS: SODIUM CHLORIDE 0.9% 1,000 ML IV SCH (17:01)
[2022-12-22] MEDS ORDERED: HYDROcodone/APAP 5-325MG 1 EACH TAB PO STA (19:54)
[2022-12-22] MEDS: traZODone HCL 50 MG TAB PO SCH (21:16)
[2022-12-22] MEDS: metFORMIN 500 MG TAB PO SCH (21:16)
[2022-12-22] MEDS: DULoxetine HCL 60 MG CAPSULE.DR PO SCH (21:24)
[2022-12-22] MEDS: METOPROLOL TARTRATE 25 MG TAB PO SCH (21:24)
[2022-12-23 02:35] LABS: Appearance,Urine Clear (Clear); Bilirubin,Urine Negative (Negative); Blood,Urine Negative (Negative); Color,Urine Yellow; Glucose,Urine (UA) Negative (Negative); Ketones,Urine Negative (Negative); Leukocyte Esterase,Urine Negative (Negative); Nitrite,Urine Negative (Negative); Protein,Urine Negative (Negative); Specific Gravity,Urine 1.006 (1.001-1.035); Urobilinogen,Urine <2.0 mg/dL (<2.0)
[2022-12-23] MEDS: METOPROLOL TARTRATE 25 MG TAB PO SCH ×2 (08:31→21:45)
[2022-12-23] MEDS ORDERED: Magnesium Replacement Protocol 1 EACH MISC MISCELLANE PRN (10:10)
[2022-12-23] MEDS ORDERED: LORazepam 2 MG/ML INJ IV PRN (10:20)
[2022-12-23] MEDS ORDERED: THIAMINE 100 MG/ML 2 ML VIAL IM STA (10:20)
[2022-12-23] MEDS: LORazepam 2 MG/ML INJ IV PRN ×2 (10:35→18:23)
[2022-12-23 11:07] LABS: African American GFR (CKD) >90 (>60 ml/min/1.73 sqM); Anion Gap 6 mmol/L; Blood Urea Nitrogen 4 mg/dL (7-17); Calcium 8.9 mg/dL (8.4-10.2); Carbon Dioxide 30 mmol/L (22-30); Chloride 94 mmol/L (98-107); Glucose 163 mg/dL (74-99); Magnesium 1.1 mg/dL (1.6-2.3); Non-African American GFR(CKD) >90 (>60 ml/min/1.73 sqM); Potassium 3.4 mmol/L (3.5-5.1); Sodium 130 mmol/L (137-145)
[2022-12-23] MEDS: PANTOPRAZOLE 40 MG/10 ML VIAL IVP SCH (12:22)
[2022-12-23] MEDS: SODIUM CHLORIDE 0.9% 1,000 ML IV SCH (15:56)
[2022-12-23] MEDS: metFORMIN 500 MG TAB PO SCH (18:01)
[2022-12-23] MEDS: MAGNESIUM SULFATE-D5W PMX 1 GM in DEXTROSE/WATER 1 100ML.BAG IVPB SCH ×4 (18:35→21:45)
--- NOTE | 2022-12-23 21:02 | P.HPIM ---
History of Present Illness H&P Date: 12/23/22 Chief Complaint: Increased weakness This is a debilitated 62-year-old female admitted with hyponatremia, hypomagnesemia and hypokalemia, alcohol abuse and multiple other medical issues. Complains of increased lower extremity weakness. Denies any pain. Denies any chest pain, palpitations or shortness of breath. Denies any lightheadedness, dizziness or focal deficits. Alcohol level less than 10. Magnesium level 0.8, pain the same supplements initiated in the ER. Review of Systems ROS Statement: Those systems with pertinent positive or pertinent negative responses have been documented in the HPI. ROS Other: All systems not noted in ROS Statement are negative. Past Medical History Past Medical History: Cancer, Heart Failure, CVA/TIA, Diabetes Mellitus, Hypertension, Myocardial Infarction ([place]), Musculoskeletal Disorder, Neurologic Disorder, Seizure Disorder Additional Past Medical History / Comment(s): Neuropathy of lower extremities and hands, bilateral carpal tunnel, hx CVA in 2002, affected right eye vision, n ow resolved, still has numbness in right hand, hx TIA's and seizures due to alcoholism, none in yrs, hx of a concussion from a fall in 2010, balance issues from Neuropathy, hx of treatment for TB at 5 yrs old, spot on liver, hx rib and left ankle fractures, hx squamous cell cancer on left forearm and right arm, current kidney stones and gallstones. Last Myocardial Infarction Date:: 2014 per EKG History of Any Multi-Drug Resistant Organisms: None Reported Date of last positivie culture/infection: None MDRO Source:: None Past Surgical History: Section, Cholecystectomy, Hernia Repair, Orthopedic Surgery, Tonsillectomy Additional Past Surgical History / Comment(s): Ventral hernia repair X4, Section X2, debridements of right foot and abdomen, colonoscopy, laparoscopy, seromas drained X2, ganglion cysts removed, left squamous cell cancer removed, cataracts removed, EGD. Past Anesthesia/Blood Transfusion Reactions: No Reported Reaction, Motion Sickness Past Psychological History: Anxiety, Depression Additional Psychological History / Comment(s): . Smoking Status: Current every day smoker Past Alcohol Use History: Abuse, Daily, Heavy Additional Past Alcohol Use History / Comment(s): Drank 6 pack beer per day, then went to a fifth of rum a day. States "now drinks a pint daily, but haven't drank in a few days due to the surgery.". Smokes 10 cigarettes a day, started smoking in 2003 . Past Drug Use History: Marijuana Additional Drug Use History / Comment(s): No current Marijuana use. - Past Family History Father Family Medical History: No Reported History Additional Family Medical History / Comment(s): . Mother Family Medical History: Cancer Additional Family Medical History / Comment(s): breast cancer Brother(s) Additional Family Medical History / Comment(s): Patient has 1 brother that from a motor vehicle accident involving alcohol. Patient has no sisters. Patient has 1 son 21 years old and one daughter 23 years old and she has no contact with her children. Medications and Allergies Home Medications Medication Instructions Recorded Confirmed Type Metoprolol Tartrate [Lopressor] 25 mg PO BID 03/17/19 12/22/22 History Multivit with Calcium,Iron,Min 1 tab PO DAILY 05/18/19 12/22/22 History [Women's Multivitamin] metFORMIN HCL [Glucophage] 500 mg PO BID 08/31/20 12/22/22 History traZODone HCL 150 mg PO HS 12/23/20 12/22/22 History DULoxetine HCL [Cymbalta] 60 mg PO HS 08/07/21 12/22/22 History Biotin 5 mg PO DAILY 08/14/21 12/22/22 History HYDROcodone/APAP 5-325MG [[place] 1 tab PO BID PRN 07/01/22 12/22/22 History 5-325] Losartan-Hctz 50-12.5 mg [Hyzaar 1 tab PO DAILY 07/01/22 12/22/22 History 50-12.5] Calcium Carbonate [Calcium] 600 mg PO DAILY 12/22/22 12/22/22 History Vitamin B Complex 1 cap PO DAILY 12/22/22 12/22/22 History Allergies Allergy/AdvReac Type Severity Reaction Status Date / Time azithromycin [From Zithromax] Allergy "had very Verified 12/22/22 13:28 bad thrush" Iodinated Contrast Media Allergy Anaphylaxis- Verified 12/22/22 13:28 [Iodinated Contrast Media - Lungs IV Dye] filled up with fluid shellfish derived [Shellfish] Allergy Swelling, Verified 12/22/22 13:28 NAUSEA pregabalin [From Lyrica] AdvReac Nausea & Verified 12/22/22 13:28 Vomiting, dizziness Physical Exam Vitals: Vital Signs Temp Pulse Pulse Resp BP BP Pulse Ox 12/23/22 11:15 97.6 F 60 16 135/81 97 12/23/22 07:35 98.8 F 83 16 174/83 93 L 12/23/22 02:22 98.7 F 74 16 153/81 94 L 12/22/22 22:39 97.7 F 74 18 180/95 95 12/22/22 22:10 75 18 95 12/22/22 22:00 87 18 152/98 96 12/22/22 21:25 85 20 176/99 94 L 12/22/22 18:00 98.4 F 84 21 177/88 96 12/22/22 15:35 98.5 F 80 20 179/83 92 L Intake and Output 12/22/22 12/23/22 12/23/22 22:59 06:59 14:59 Output Total 300 800 Balance -300 -800 Output: Urine 300 800 Other: Voiding Method Self-Catheterization # Bowel Movements 1 Weight 81.647 kg - Exam GENERAL: The patient is alert and oriented x3, Well developed, well nourished. HEENT: Pupils are round and equally reacting to light. EOMI. no scleral icterus. No conjunctival pallor. Normocephalic, atraumatic. No pharyngeal erythema. No thyromegaly. CARDIOVASCULAR: S1 and S2 muffled PULMONARY: diminished breath sounds bilaterally with no wheezing or rhonchi noted. ABDOMEN: soft. Nontender on exam. obese. non-distended, normoactive bowel sounds. No palpable organomegaly. MUSCULOSKELETAL: No joint swelling or deformity. EXTREMITIES: No cyanosis, clubbing, or pedal edema. NEUROLOGICAL: Gross neurological examination did not reveal any focal deficits. Minimal tremors. SKIN: No rashes. Results CBC & Chem 7: 12/22/22 12:50 12/23/22 10:24 Labs: Abnormal Lab Results - Last 24 Hours (Table) 12/23/22 Range/Units 10:24 Sodium 130 L (137-145) mmol/L Potassium 3.4 L (3.5-5.1) mmol/L Chloride 94 L (98-107) mmol/L BUN 4 L (7-17) mg/dL Creatinine 0.45 L (0.52-1.04) mg/dL Glucose 163 H (74-99) mg/dL Magnesium 1.1 L (1.6-2.3) mg/dL Thrombosis Risk Factor Assmnt - Choose All That Apply Each Factor Represents 1 point: Abnormal pulmonary function (COPD), Swollen legs (current) Each Risk Factor Represents 2 Points: Age 61-74 years Thrombosis Risk Factor Assessment Total Risk Factor Score: 4 Thrombosis Risk Factor Assessment Level: Moderate Risk Assessment and Plan Assessment: Multiple electrolyte disorders,Hypomagnesemia, hyponatremia and hypokalemia secondary to alcohol abuse. Reports she drinks 1 pint of gin daily. History of bilateral lower extremity neuropathy follows with [facility] Alcohol dependence Depression Mood disorder Plan: Continue on current medication regime ,monitoring and symptomatic treatment.CIWA protocol, thiamine/folic acid, gentle IV fluid hydration. Electrolyte replacements with repeat levels to be rechecked this afternoon. Discharge planning in progress for tomorrow. The impression and plan of care has been dictated as directed. : I performed a history and examination of this patient, discussed the same with the dictator. I agree with the dictator's note ,documented as a scribe. Any additional findings or plans will be noted.
[2022-12-23] MEDS ORDERED: DEXTROSE 50% SYRINGE 50 ML IVP PRN ×2 (21:05)
[2022-12-23] MEDS ORDERED: METOPROLOL TARTRATE 25 MG TAB PO SCH (21:15)
[2022-12-23] MEDS: FOLIC ACID 1 MG TAB PO SCH (21:45)
[2022-12-23] MEDS: traZODone HCL 50 MG TAB PO SCH (21:45)
[2022-12-23] MEDS: DULoxetine HCL 60 MG CAPSULE.DR PO SCH (21:45)
[2022-12-23] MEDS: INSULIN DETEMIR (LEVEMIR) 100 UNIT/ML SYR SQ SCH (21:46)
[2022-12-23 21:47] LABS: Glucose,Whole Blood 147 mg/dL (70-110)
[2022-12-24 06:34] LABS: African American GFR (CKD) >90 (>60 ml/min/1.73 sqM); Anion Gap 2 mmol/L; Blood Urea Nitrogen <2 mg/dL (7-17); Calcium 8.3 mg/dL (8.4-10.2); Carbon Dioxide 31 mmol/L (22-30); Chloride 99 mmol/L (98-107); Glucose 85 mg/dL (74-99); Magnesium 1.7 mg/dL (1.6-2.3); Non-African American GFR(CKD) >90 (>60 ml/min/1.73 sqM); Potassium 2.8 mmol/L (3.5-5.1); Sodium 132 mmol/L (137-145)
[2022-12-24 06:59] LABS: Glucose,Whole Blood 97 mg/dL (70-110)
[2022-12-24] MEDS: PANTOPRAZOLE 40 MG/10 ML VIAL IVP SCH (07:48)
[2022-12-24] MEDS: THIAMINE 100 MG TAB PO SCH (07:49)
[2022-12-24] MEDS: metFORMIN 500 MG TAB PO SCH ×2 (07:49→17:48)
[2022-12-24] MEDS: FOLIC ACID 1 MG TAB PO SCH (07:49)
[2022-12-24] MEDS: METOPROLOL TARTRATE 25 MG TAB PO SCH ×2 (07:49→21:13)
[2022-12-24] MEDS: INSULIN ASPART (NovoLOG) 100 UNIT/ML VIAL SQ SCH ×4 (07:49→21:07)
[2022-12-24] MEDS ORDERED: POTASSIUM CHLORIDE ER 20 MEQ TAB.ER PO STA (08:19)
[2022-12-24] MEDS: MAGNESIUM SULFATE-D5W PMX 1 GM in DEXTROSE/WATER 1 100ML.BAG IVPB SCH ×2 (08:38→09:44)
[2022-12-24] MEDS: POTASSIUM CHLORIDE ER 20 MEQ TAB.ER PO SCH ×2 (09:44→11:19)
[2022-12-24 11:07] LABS: Glucose,Whole Blood 148 mg/dL (70-110)
[2022-12-24] MEDS ORDERED: Potassium Replacement Protocol 1 EACH MISC MISCELLANE PRN (11:38)
[2022-12-24] MEDS: ACETAMINOPHEN TAB 500 MG TAB PO PRN (12:52)
--- NOTE | 2022-12-24 14:42 | P.DS ---
Providers Date of admission: 12/22/22 14:32 Expected date of discharge: 12/26/22 Attending physician: Rl Ellis Primary care physician: Rl Ellis Hospital Course: Final Diagnoses: Multiple electrolyte disorders,Hypomagnesemia, hyponatremia and hypokalemia secondary to alcohol abuse. Reports she drinks 1 pint of gin daily. History of bilateral lower extremity neuropathy follows with Dr. [facility] Alcohol dependence Depression Mood disorder 12/26/22 Patient was seen and examined today she was held overnight for pending insurance and bed placement for subacute rehab. She still requires maximum assistance with ambulation and walking about 10-15 feet max also needs help in ADLs. She is medically stable and is okay for transfer today Hospital course:This is a debilitated 62-year-old female admitted with hyponatremia, hypomagnesemia and hypokalemia, alcohol abuse and multiple other medical issues. Complains of increased lower extremity weakness. Denies any pain. Denies any chest pain, palpitations or shortness of breath. Denies any lightheadedness, dizziness or focal deficits. Alcohol level less than 10. Magnesium level 0.8, pain the same supplements initiated in the ER. Sodium 132 .Receiving magnesium and potassium supplements, repeat levels pending .CIWA score currently 0. Significant clinical improvement. Evaluated by PT and subacute rehab recommended at discharge. Discharge planning in progress for today pending repeat potassium level, insurance authorization for rehab. The impression and plan of care has been dictated as directed. : I performed a history and examination of this patient, discussed the same with the dictator. I agree with the dictator's note ,documented as a scribe. Any additional findings or plans will be noted. Patient Condition at Discharge: Stable Plan - Discharge Summary New Discharge Prescriptions: New RX: Folic Acid 1 mg PO DAILY tab RX: INSULIN LISPRO (HumaLOG) [humaLOG] 0 unit SQ ACHS #10 ml RX: Thiamine [Vitamin B-1] 100 mg PO DAILY tab Continue RX: Metoprolol Tartrate [Lopressor] 25 mg PO BID RX: Multivit with Calcium,Iron,Min [Women's Multivitamin] 1 tab PO DAILY RX: metFORMIN HCL [Glucophage] 500 mg PO BID RX: DULoxetine HCL [Cymbalta] 60 mg PO HS RX: Vitamin B Complex 1 cap PO DAILY RX: HYDROcodone/APAP 5-325MG [[place] 5-325] 1 tab PO BID PRN #6 tab PRN Reason: Pain RX: traZODone HCL 150 mg PO HS RX: Biotin 5 mg PO DAILY RX: Losartan-Hctz 50-12.5 mg [Hyzaar 50-12.5] 1 tab PO DAILY RX: Calcium Carbonate [Calcium] 600 mg PO DAILY Discharge Medication List RX: Metoprolol Tartrate [Lopressor] 25 mg PO BID 03/17/19 [History] RX: Multivit with Calcium,Iron,Min [Women's Multivitamin] 1 tab PO DAILY 05/18/19 [History] RX: metFORMIN HCL [Glucophage] 500 mg PO BID 08/31/20 [History] RX: traZODone HCL 150 mg PO HS 12/23/20 [History] RX: DULoxetine HCL [Cymbalta] 60 mg PO HS 08/07/21 [History] RX: Biotin 5 mg PO DAILY 08/14/21 [History] RX: Losartan-Hctz 50-12.5 mg [Hyzaar 50-12.5] 1 tab PO DAILY 07/01/22 [History] RX: Calcium Carbonate [Calcium] 600 mg PO DAILY 12/22/22 [History] RX: Vitamin B Complex 1 cap PO DAILY 12/22/22 [History] RX: Folic Acid 1 mg PO DAILY tab 12/24/22 [Rx] RX: HYDROcodone/APAP 5-325MG [[place] 5-325] 1 tab PO BID PRN #6 tab 12/24/22 [Rx] RX: INSULIN LISPRO (HumaLOG) [humaLOG] 0 unit SQ ACHS #10 ml 12/24/22 [Rx] RX: Thiamine [Vitamin B-1] 100 mg PO DAILY tab 12/24/22 [Rx] Follow up Appointment(s)/Referral(s): Rl Ellis DO [Primary Care Provider] - 1 Week (After DC from subacute rehab) Activity/Diet/Wound Care/Special Instructions: ECF: CBC, BMP, magnesium in 3 days No EtOH Discharge/Stand Alone Forms: AA Meetings [place], [facility], Outpatient Counseling, In Substance Abuse Facilities Discharge Disposition: TRANSFER TO SNF/ECF
[2022-12-24] MEDS: LOSARTAN 50 MG TAB PO SCH (14:58)
[2022-12-24] MEDS: SODIUM CHLORIDE 0.9% 1,000 ML IV SCH (15:04)
[2022-12-24] MEDS ORDERED: POTASSIUM CHLORIDE ER 20 MEQ TAB.ER PO SCH (16:00)
[2022-12-24 17:12] LABS: Glucose,Whole Blood 170 mg/dL (70-110)
[2022-12-24 20:08] LABS: Glucose,Whole Blood 144 mg/dL (70-110)
[2022-12-24] MEDS: traZODone HCL 50 MG TAB PO SCH (21:13)
[2022-12-24] MEDS: DULoxetine HCL 60 MG CAPSULE.DR PO SCH (21:13)
[2022-12-24] MEDS: INSULIN DETEMIR (LEVEMIR) 100 UNIT/ML SYR SQ SCH (21:13)
[2022-12-25 07:11] LABS: Glucose,Whole Blood 84 mg/dL (70-110)
[2022-12-25] MEDS: INSULIN ASPART (NovoLOG) 100 UNIT/ML VIAL SQ SCH ×4 (07:24→20:55)
[2022-12-25] MEDS: METOPROLOL TARTRATE 25 MG TAB PO SCH ×2 (07:44→20:59)
[2022-12-25] MEDS: LOSARTAN 50 MG TAB PO SCH (07:44)
[2022-12-25] MEDS: FOLIC ACID 1 MG TAB PO SCH (07:44)
[2022-12-25] MEDS: THIAMINE 100 MG TAB PO SCH (07:44)
[2022-12-25] MEDS: PANTOPRAZOLE 40 MG/10 ML VIAL IVP SCH (07:44)
[2022-12-25] MEDS: metFORMIN 500 MG TAB PO SCH ×2 (07:44→16:59)
[2022-12-25 08:41] LABS: African American GFR (CKD) >90 (>60 ml/min/1.73 sqM); Anion Gap 3 mmol/L; Blood Urea Nitrogen <2 mg/dL (7-17); Calcium 8.2 mg/dL (8.4-10.2); Carbon Dioxide 27 mmol/L (22-30); Chloride 102 mmol/L (98-107); Glucose 84 mg/dL (74-99); Magnesium 1.6 mg/dL (1.6-2.3); Non-African American GFR(CKD) >90 (>60 ml/min/1.73 sqM); Potassium 3.9 mmol/L (3.5-5.1); Sodium 132 mmol/L (137-145)
[2022-12-25] MEDS: LOSARTAN-HCTZ 50-12.5 MG 1 EACH TAB PO SCH (09:45)
[2022-12-25 11:12] LABS: Glucose,Whole Blood 125 mg/dL (70-110)
[2022-12-25] MEDS ORDERED: POTASSIUM CHLORIDE ER 20 MEQ TAB.ER PO STA (11:24)
[2022-12-25] MEDS: MAGNESIUM OXIDE 400 MG TAB PO SCH ×3 (12:09→21:02)
[2022-12-25] MEDS: SODIUM CHLORIDE 0.9% 1,000 ML IV SCH (16:18)
[2022-12-25] MEDS: ACETAMINOPHEN TAB 500 MG TAB PO PRN (17:03)
[2022-12-25 17:11] LABS: Glucose,Whole Blood 164 mg/dL (70-110)
[2022-12-25 20:27] LABS: Glucose,Whole Blood 117 mg/dL (70-110)
[2022-12-25] MEDS: traZODone HCL 50 MG TAB PO SCH (20:59)
[2022-12-25] MEDS: INSULIN DETEMIR (LEVEMIR) 100 UNIT/ML SYR SQ SCH (20:59)
[2022-12-25] MEDS: DULoxetine HCL 60 MG CAPSULE.DR PO SCH (20:59)
[2022-12-26 03:24] VITALS: TEMP 98.5
[2022-12-26 06:47] LABS: African American GFR (CKD) >90 (>60 ml/min/1.73 sqM); Anion Gap 3 mmol/L; Blood Urea Nitrogen 3 mg/dL (7-17); Carbon Dioxide 25 mmol/L (22-30); Chloride 105 mmol/L (98-107); Glucose 74 mg/dL (74-99); Non-African American GFR(CKD) >90 (>60 ml/min/1.73 sqM); Sodium 133 mmol/L (137-145)
[2022-12-26 06:52] LABS: Magnesium 1.5 mg/dL (1.6-2.3); Potassium 4.2 mmol/L (3.5-5.1)
[2022-12-26 07:54] LABS: Glucose,Whole Blood 104 mg/dL (70-110)
[2022-12-26] MEDS: INSULIN ASPART (NovoLOG) 100 UNIT/ML VIAL SQ SCH ×2 (08:25→12:11)
[2022-12-26] MEDS: MAGNESIUM OXIDE 400 MG TAB PO SCH (08:30)
[2022-12-26] MEDS: PANTOPRAZOLE 40 MG/10 ML VIAL IVP SCH (08:30)
[2022-12-26] MEDS: THIAMINE 100 MG TAB PO SCH (08:30)
[2022-12-26] MEDS: FOLIC ACID 1 MG TAB PO SCH (08:30)
[2022-12-26] MEDS: LOSARTAN-HCTZ 50-12.5 MG 1 EACH TAB PO SCH (08:30)
[2022-12-26] MEDS: metFORMIN 500 MG TAB PO SCH (08:30)
[2022-12-26] MEDS: METOPROLOL TARTRATE 25 MG TAB PO SCH (08:30)
[2022-12-26 08:47] VITALS: BP 207/95; PULSE 83; RESP 19
== END 2022-12-26 13:16 | DRG 641 ==
LOC: EC 12:19 → 5NMEDONC 14:32
PROVIDERS: ADMIT Family Medicine; ATTEND Family Medicine
DX: E87.1 Hypo-osmolality and hyponatremia (principal); E83.42 Hypomagnesemia; E87.6 Hypokalemia; F10.20 Alcohol dependence, uncomplicated; Z71.41 Alcohol abuse counseling and surveillance of alcoholic; G62.9 Polyneuropathy, unspecified; F17.210 Nicotine dependence, cigarettes, uncomplicated; F32.A Depression, unspecified; F41.9 Anxiety disorder, unspecified; G40.909 Epilepsy, unspecified, not intractable, without status epilepticus; I11.0 Hypertensive heart disease with heart failure; I25.2 Old myocardial infarction; I50.9 Heart failure, unspecified; R29.6 Repeated falls; Z79.84 Long term (current) use of oral hypoglycemic drugs; E11.41 Type 2 diabetes mellitus with diabetic mononeuropathy; Z79.899 Other long term (current) drug therapy; Z86.73 Personal history of transient ischemic attack (TIA), and cerebral infarction without residual deficits; N20.0 Calculus of kidney; K80.20 Calculus of gallbladder without cholecystitis without obstruction; Z28.21 Immunization not carried out because of patient refusal; Z91.041 Radiographic dye allergy status; Z88.0 Allergy status to penicillin; Z91.013 Allergy to seafood; Z91.81 History of falling
CPT/HCPCS: 36415; 80048; 80053; 80320; 81003; 83036; 83735; 84132; 84484; 85025; 93005; 96361; 96365; 99285

== ENCOUNTER → 2023-03-11 | Outpatient (CLI) | payer MEDICARE ==
--- NOTE | 2023-03-12 07:07 | CA ---
Transthoracic Echo Report Name: Anupama Howell Age: 62 Gender: F : 1960 Exam Date: 03/11/2023 13:38 Exam Location: [facility] Ht (in): 66 Wt (lb): 180 Ordering Physician: Rl Ellis DO Attending/Referring Phys: Fina Rendon [facility] Typewriter Tester Stephany Mcconnell RDCS Procedure CPT: Indications: I10 ESSENTIAL (PRIMARY) HYPERTENSION Cardiac Hx: Technical Quality: Fair Contrast 1: Total Dose (mL): Contrast 2: Total Dose (mL): MEASUREMENTS (Male / Female) Normal Values 2D ECHO LV Diastolic Diameter PLAX 4.9 cm 4.2 - 5.9 / 3.9 - 5.3 cm LV Systolic Diameter PLAX 3.0 cm IVS Diastolic Thickness 1.2 cm 0.6 - 1.0 / 0.6 - 0.9 cm LVPW Diastolic Thickness 1.3 cm 0.6 - 1.0 / 0.6 - 0.9 cm LV Relative Wall Thickness 0.5 RV Internal Dim ED PLAX 3.6 cm LA Volume 31.4 cm??? 18 - 58 / 22 - 52 cm??? M-MODE Aortic Root Diameter MM 2.9 cm LA Systolic Diameter MM 3.3 cm LA Ao Ratio MM 1.1 DOPPLER AV Peak Velocity 150.8 cm/s AV Peak Gradient 9.1 mmHg AV Mean Velocity 107.6 cm/s AV Mean Gradient 5.1 mmHg AV Velocity Time Integral 35.7 cm LVOT Peak Velocity 131.2 cm/s LVOT Peak Gradient 6.9 mmHg LVOT Velocity Time Integral 31.7 cm Mitral E Point Velocity 75.8 cm/s Mitral A Point Velocity 104.1 cm/s Mitral E to A Ratio 0.7 MV E' Velocity 5.1 cm/s Mitral E to MV E' Ratio 14.8 TR Peak Velocity 154.6 cm/s TR Peak Gradient 9.6 mmHg Right Ventricular Systolic Press 14.0 mmHg FINDINGS Left Ventricle Mildly increased left ventricular wall thickness. Normal left ventricular systolic function with no obvious regional wall motion abnormalities. Left ventricular ejection fraction is estimated at 55-60 %. Right Ventricle Mild right ventricular dilatation. Right ventricular systolic pressure within normal limits. Right Atrium Normal right atrial size. Left Atrium Normal left atrial size. Mitral Valve Structurally normal mitral valve. No mitral stenosis, regurgitation or prolapse. Mild mitral annular calcification. Aortic Valve Trileaflet aortic valve. No aortic valve stenosis or regurgitation. Aortic valve sclerosis. Tricuspid Valve Structurally normal tricuspid valve. Mild tricuspid regurgitation. Pulmonic Valve Mild pulmonic regurgitation. Pericardium No pericardial effusion. Aorta Normal size aortic root and proximal ascending aorta. CONCLUSIONS Hyperdynamic LV. The ejection fraction is 60-65%. Mild concentric LVH Mildly dilated RV with normal function. Normal pulmonary artery systolic pressure No significant valvular abnormalities noted Previewed by: Dr. Alvarado Lawson MD (Electronically Signed) Final Date: 12 March 2023 07:06
== END | disposition home or self-care (01) ==
LOC: RADECHMAIN 13:28
PROVIDERS: ATTEND Family Medicine
DX: I07.1 Rheumatic tricuspid insufficiency (principal); I11.9 Hypertensive heart disease without heart failure; I37.1 Nonrheumatic pulmonary valve insufficiency
CPT/HCPCS: 93306

== ENCOUNTER 2023-05-22 20:44 | Inpatient (IN) | payer MEDICARE ==
[2023-05-22] MEDS ORDERED: SODIUM CHLORIDE 0.9% 2,000 ML IV ONE (21:14)
[2023-05-22] MEDS ORDERED: ONDANSETRON 4 MG/2 ML VIAL IVP STA (21:14)
[2023-05-22] MEDS: SODIUM CHLORIDE 0.9% 1,000 ML IV SCH (21:30)
--- NOTE | 2023-05-22 21:35 | ED ---
Abdominal Pain HPI - General Chief Complaint: Abdominal Pain Stated Complaint: Right flank pain Time Seen by Provider: 05/22/23 20:59 Source: patient, EMS Mode of arrival: EMS Limitations: no limitations - History of Present Illness Initial Comments: 62-year-old female presenting with chief complaint of right flank pain. Pain is been ongoing for about 4 days. Patient states that she has been having urgency and frequency as well as hematuria for about 5 days but has been unable to get in with her doctor. She admits to nausea and vomiting as well as fatigue. No chest pain or difficulty breathing. Admits to chills unsure if she has had a fever. Patient is also a daily drinker, last drink was earlier today. - Related Data Home Medications Medication Instructions Recorded Confirmed Metoprolol Tartrate [Lopressor] 25 mg PO BID 03/17/19 05/22/23 Multivit with Calcium,Iron,Min 1 tab PO DAILY 05/18/19 05/22/23 [Women's Multivitamin] metFORMIN HCL [Glucophage] 500 mg PO BID 08/31/20 05/22/23 DULoxetine HCL [Cymbalta] 60 mg PO HS 08/07/21 05/22/23 Biotin 5 mg PO DAILY 08/14/21 05/22/23 Losartan-Hctz 50-12.5 mg [Hyzaar 1 tab PO DAILY 07/01/22 05/22/23 50-12.5] Calcium Carbonate [Calcium] 600 mg PO DAILY 12/22/22 05/22/23 Vitamin B Complex 1 cap PO DAILY 12/22/22 05/22/23 Furosemide [Lasix] 40 mg PO DAILY 05/22/23 05/22/23 HYDROcodone/APAP 5-325MG [[place] 1 tab PO BID 05/22/23 05/22/23 5-325] Vitamin D3(Unknown Dose) 1 tab PO DAILY 05/22/23 05/22/23 traZODone HCL 200 mg PO HS 05/22/23 05/22/23 Allergies Allergy/AdvReac Type Severity Reaction Status Date / Time azithromycin [From Zithromax] Allergy "had very Verified 05/22/23 22:28 bad thrush" Iodinated Contrast Media Allergy Anaphylaxis- Verified 05/22/23 22:28 [Iodinated Contrast Media - Lungs IV Dye] filled up with fluid shellfish derived [Shellfish] Allergy Swelling, Verified 05/22/23 22:28 NAUSEA pregabalin [From Lyrica] AdvReac Nausea & Verified 05/22/23 22:28 Vomiting, dizziness Review of Systems ROS Statement: Those systems with pertinent positive or pertinent negative responses have been documented in the HPI. ROS Other: All systems not noted in ROS Statement are negative. Past Medical History Past Medical History: Cancer, Heart Failure, CVA/TIA, Diabetes Mellitus, Hypertension, Myocardial Infarction (PA), Musculoskeletal Disorder, Neurologic Disorder, Seizure Disorder Additional Past Medical History / Comment(s): Neuropathy of lower extremities and hands, bilateral carpal tunnel, hx CVA in 2002, affected right eye vision, now resolved, still has numbness in right hand, hx TIA's and seizures due to alcoholism, none in yrs, hx of a concussion from a fall in 2010, balance issues from Neuropathy, hx of treatment for TB at 5 yrs old, spot on liver, hx rib and left ankle fractures, hx squamous cell cancer on left forearm and right arm, current kidney stones and gallstones. Last Myocardial Infarction Date:: 2014 per EKG History of Any Multi-Drug Resistant Organisms: None Reported Date of last positivie culture/infection: None MDRO Source:: None Past Surgical History: Section, Cholecystectomy, Hernia Repair, Orthopedic Surgery, Tonsillectomy Additional Past Surgical History / Comment(s): Ventral hernia repair X4, Section X2, debridements of right foot and abdomen, colonoscopy, laparoscopy, seromas drained X2, ganglion cysts removed, left squamous cell cancer removed, cataracts removed, EGD. Past Anesthesia/Blood Transfusion Reactions: No Reported Reaction, Motion Sic kness Past Psychological History: Anxiety, Depression Smoking Status: Current every day smoker Past Alcohol Use History: Abuse, Daily, Heavy Past Drug Use History: Marijuana - Past Family History Father Family Medical History: No Reported History Additional Family Medical History / Comment(s): . Mother Family Medical History: Cancer Additional Family Medical History / Comment(s): breast cancer Brother(s) Additional Family Medical History / Comment(s): Patient has 1 brother that from a motor vehicle accident involving alcohol. Patient has no sisters. Patient has 1 son 21 years old and one daughter 23 years old and she has no contact with her children. General Exam Limitations: no limitations General appearance: alert, in no apparent distress Head exam: Present: atraumatic, normocephalic, normal inspection Eye exam: Present: normal appearance, EOMI Neck exam: Present: normal inspection, full ROM Respiratory exam: Present: normal lung sounds bilaterally. Absent: respiratory distress, wheezes, rales, rhonchi, stridor Cardiovascular Exam: Present: regular rate, normal rhythm, normal heart sounds. Absent: systolic murmur, diastolic murmur, rubs, gallop, clicks GI/Abdominal exam: Present: soft, tenderness. Absent: distended, guarding, rebound, rigid Neurological exam: Present: alert, oriented X3 Psychiatric exam: Present: normal affect, normal mood Skin exam: Present: warm, dry, intact, normal color. Absent: rash Course Vital Signs 05/22/23 05/22/23 05/23/23 20:46 22:00 00:00 Temperature 98.4 F Pulse Rate 95 86 90 Respiratory 18 16 22 Rate Blood Pressure 105/67 99/66 107/76 O2 Sat by Pulse 96 97 96 Oximetry 05/23/23 05/23/23 01:00 02:00 Temperature Pulse Rate 83 81 Respiratory 16 16 Rate Blood Pressure 93/60 111/73 O2 Sat by Pulse 95 96 Oximetry Medical Decision Making - Medical Decision Making Was pt. sent in by a medical professional or institution (, PA, FUNERAL SALES MANAGER, urgent care, hospital, or alf...) When possible be specific @ -No Did you speak to anyone other than the patient for history (EMS, parent, family, police, friend...)? What history was obtained from this source @ -No Did you review nursing and triage notes (agree or disagree)? Why? @ -I reviewed and agree with nursing and triage notes Were old charts reviewed (outside hosp., previous admission, EMS record, old EKG, old radiological studies, urgent care reports/EKG's, alf records)? Report findings @ -No old charts were reviewed Differential Diagnosis (chest pain, altered mental status, abdominal pain women, abdominal pain men, vaginal bleeding, weakness, fever, dyspnea, syncope, headache, dizziness, GI bleed, back pain, seizure, CVA, palpatations, mental health, musculoskeletal)? @ -MDM Differential Abdominal Pain Women: Appendicitis, Cholecystitis, diverticulosis, ischemic bowel, pancreatitis, hepatitis, UTI, gastroenteritis, AAA, incarcerated hernia, bowel obstruction, constipation, inflammatory bowel, hepatitis, peptic ulcer disease, splenic infarction, perforated viscus, vulvitis, ovarian torsion, PID, kidney stone, placenta abruption... This is not meant to be an all-inclusive list EKG interpreted by me (3pts min.). @ -As above X-rays interpreted by me (1pt min.). @ -None done CT interpreted by me (1pt min.). @ -CT of the abdomen and pelvis shows inflammation changes around the right kidney without evidence for obstructing calculus. Mild dilation of the collecting system. Correlate for recently passed renal calculus. The appendix is normal. Nodular liver contour with caudate lobe hypertrophy findings compatible with cirrhosis. Mild cardiomegaly. Moderate coronary artery atherosclerosis. Minimally complex left renal cyst. Stable back to 12/30/20 and likely benign U/S interpreted by me (1pt. min.). @ -None done What testing was considered but not performed or refused? (CT, X-rays, U/S, labs)? Why? @ -None What meds were considered but not given or refused? Why? @ -None Did you discuss the management of the patient with other professionals (professionals i.e. , PA, FUNERAL SALES MANAGER, lab, RT, psych nurse, sr. social media & mobile manager, pinion staker, teacher, chief wellness officer, case briefer)? Give summary @ -I spoke with Alfredo Erazo from [facility] hospitalist group accepted admission Was smoking cessation discussed for >3mins.? @ -No Was critical care preformed (if so, how long)? @ -No Were there social determinants of health that impacted care today? How? (Homelessness, low income, unemployed, alcoholism, drug addiction, transportation, low edu. Level, literacy, decrease access to med. care, half-way, rehab)? @ -No Was there de-escalation of care discussed even if they declined (Discuss DNR or withdrawal of care, Hospice)? DNR status @ -No What co-morbidities impacted this encounter? (DM, HTN, Smoking, COPD, CAD, Cancer, CVA, ARF, Chemo, Hep., AIDS, mental health diagnosis, sleep apnea, morbid obesity)? @ -None Was patient admitted / discharged? Hospital course, mention meds given and rou te, prescriptions, significant lab abnormalities, going to OR and other pertinent info. @ -62-year-old female presenting with chief complaint of right-sided flank pain as well as dysuria and hematuria ongoing for 4-5 days. Admits to nausea and vomiting. History and physical exam were conducted. WBC 11.9. Sodium 120. BUN 23 and creatinine 1.97, this is increased from baseline. Lactic acid 7.6, likely due to dehydration. Total bilirubin 1.4 and AST 59 ALT 61, which corre lates his CT findings of cirrhosis. Urine is positive for UTI. CT shows inflammatory changes around the right kidney, it is possible the patient has recently passed a kidney stone but no obstructing uropathy seen on scan. Patient was given 4 L fluid bolus and started on maintenance rate of 130 miles per hour. She is given IV Rocephin. Patient will be admitted for UTI, acute kidney injury, dehydration, and cirrhosis. Patient is agreeable with this plan. I discussed this case with my attending Dr. Henriquez Undiagnosed new problem with uncertain prognosis? @ -No Drug Therapy requiring intensive monitoring for toxicity (Heparin, Nitro, Insulin, Cardizem)? @ -No Were any procedures done? @ -No Diagnosis/symptom? @ -UTI, acute kidney injury, dehydration Acute, or Chronic, or Acute on Chronic? @ -Acute Uncomplicated (without systemic symptoms) or Complicated (systemic symptoms)? @ -Complicated Side effects of treatment? @ -No Exacerbation, Progression, or Severe Exacerbation? @ -No Poses a threat to life or bodily function? How? (Chest pain, USA, PA, pneumonia, PE, COPD, DKA, ARF, appy, cholecystitis, CVA, Diverticulitis, Homicidal, Suicidal, threat to staff... and all critical care pts) @ -Yes - Lab Data Result diagrams: 05/22/23 21:22 05/22/23 21:22 Lab Results 05/22/23 05/22/23 05/22/23 Range/Units 21:22 21:22 21:22 WBC 11.9 H (3.8-10.6) k/uL RBC 4.08 (3.80-5.40) m/uL Hgb 14.2 (11.4-16.0) gm/dL Hct 39.8 (34.0-46.0) % MCV 97.7 (80.0-100.0) fL MCH 34.9 (25.0-35.0) pg MCHC 35.7 (31.0-37.0) g/dL RDW 12.5 (11.5-15.5) % Plt Count 62 L (150-450) k/uL MPV 10.1 Neutrophils % (Manual) 37 % Band Neuts % (Manual) 49 % Lymphocytes % (Manual) 8 % Monocytes % (Manual) 5 % Eosinophils % (Manual) 1 % Neutrophils # (Manual) 10.20 H (1.3-7.7) k/uL Lymphocytes # (Manual) 0.95 L (1.0-4.8) k/uL Monocytes # (Manual) 0.60 (0-1.0) k/uL Eosinophils # (Manual) 0.12 (0-0.7) k/uL Nucleated RBCs 0 (0-0) /100 WBC Manual Slide Review Performed Toxic Granulation Present Toxic Vacuolation Present Sodium 120 L (137-145) mmol/L Potassium 3.7 (3.5-5.1) mmol/L Chloride 79 L (98-107) mmol/L Carbon Dioxide 22 (22-30) mmol/L Anion Gap 19 mmol/L BUN 23 H (7-17) mg/dL Creatinine 1.97 H (0.52-1.04) mg/dL Est GFR (CKD-EPI)AfAm 31 (>60 ml/min/1.73 sqM) Est GFR (CKD-EPI)NonAf 27 (>60 ml/min/1.73 sqM) Glucose 183 H (74-99) mg/dL Lactic Ac Sepsis Rflx Plasma Lactic Acid Severino 7.6 H* (0.7-2.0) mmol/L Calcium 9.9 (8.4-10.2) mg/dL Total Bilirubin 1.4 H (0.2-1.3) mg/dL AST 59 H (14-36) U/L ALT 61 H (4-34) U/L Alkaline Phosphatase 30 L (38-126) U/L Total Protein 6.1 L (6.3-8.2) g/dL Albumin 3.8 (3.5-5.0) g/dL Urine Color Urine Appearance (Clear) Urine pH (5.0-8.0) Ur Specific [place] (1.001-1.035) Urine Protein (Negative) Urine Glucose (UA) (Negative) Urine Ketones (Negative) Urine Blood (Negative) Urine Nitrite (Negative) Urine Bilirubin (Negative) Urine Urobilinogen (<2.0) mg/dL Ur Leukocyte Esterase (Negative) Urine RBC (0-5) /hpf Urine WBC (0-5) /hpf Urine WBC Clumps (None) /hpf Ur Squamous Epith Cells (0-4) /hpf Urine Bacteria (None) /hpf Hyaline Casts (0-2) /lpf Urine Mucus (None) /hpf Serum Alcohol mg/dL 05/22/23 05/22/23 05/23/23 Range/Units 22:17 22:21 00:30 WBC (3.8-10.6) k/uL RBC (3.80-5.40) m/uL Hgb (11.4-16.0) gm/dL Hct (34.0-46.0) % MCV (80.0-100.0) fL MCH (25.0-35.0) pg MCHC (31.0-37.0) g/dL RDW (11.5-15.5) % Plt Count (150-450) k/uL MPV Neutrophils % (Manual) % Band Neuts % (Manual) % Lymphocytes % (Manual) % Monocytes % (Manual) % Eosinophils % (Manual) % Neutrophils # (Manual) (1.3-7.7) k/uL Lymphocytes # (Manual) (1.0-4.8) k/uL Monocytes # (Manual) (0-1.0) k/uL Eosinophils # (Manual) (0-0.7) k/uL Nucleated RBCs (0-0) /100 WBC Manual Slide Review Toxic Granulation Toxic Vacuolation Sodium (137-145) mmol/L Potassium (3.5-5.1) mmol/L Chloride (98-107) mmol/L Carbon Dioxide (22-30) mmol/L Anion Gap mmol/L BUN (7-17) mg/dL Creatinine (0.52-1.04) mg/dL Est GFR (CKD-EPI)AfAm (>60 ml/min/1.73 sqM) Est GFR (CKD-EPI)NonAf (>60 ml/min/1.73 sqM) Glucose (74-99) mg/dL Lactic Ac Sepsis Rflx Y Plasma Lactic Acid Severino (0.7-2.0) mmol/L Calcium (8.4-10.2) mg/dL Total Bilirubin (0.2-1.3) mg/dL AST (14-36) U/L ALT (4-34) U/L Alkaline Phosphatase (38-126) U/L Total Protein (6.3-8.2) g/dL Albumin (3.5-5.0) g/dL Urine Color Light Red Urine Appearance Turbid H (Clear) Urine pH 5.5 (5.0-8.0) Ur Specific [place] 1.022 (1.001-1.035) Urine Protein 2+ H (Negative) Urine Glucose (UA) Negative (Negative) Urine Ketones Negative (Negative) Urine Blood Large H (Negative) Urine Nitrite Negative (Negative) Urine Bilirubin Negative (Negative) Urine Urobilinogen <2.0 (<2.0) mg/dL Ur Leukocyte Esterase Large H (Negative) Urine RBC 75 H (0-5) /hpf Urine WBC >182 H (0-5) /hpf Urine WBC Clumps Moderate H (None) /hpf Ur Squamous Epith Cells 7 H (0-4) /hpf Urine Bacteria Many H (None) /hpf Hyaline Casts 17 H (0-2) /lpf Urine Mucus Rare H (None) /hpf Serum Alcohol <10 mg/dL 05/23/23 Range/Units 00:38 WBC (3.8-10.6) k/uL RBC (3.80-5.40) m/uL Hgb (11.4-16.0) gm/dL Hct (34.0-46.0) % MCV (80.0-100.0) fL MCH (25.0-35.0) pg MCHC (31.0-37.0) g/dL RDW (11.5-15.5) % Plt Count (150-450) k/uL MPV Neutrophils % (Manual) % Band Neuts % (Manual) % Lymphocytes % (Manual) % Monocytes % (Manual) % Eosinophils % (Manual) % Neutrophils # (Manual) (1.3-7.7) k/uL Lymphocytes # (Manual) (1.0-4.8) k/uL Monocytes # (Manual) (0-1.0) k/uL Eosinophils # (Manual) (0-0.7) k/uL Nucleated RBCs (0-0) /100 WBC Manual Slide Review Toxic Granulation Toxic Vacuolation Sodium (137-145) mmol/L Potassium (3.5-5.1) mmol/L Chloride (98-107) mmol/L Carbon Dioxide (22-30) mmol/L Anion Gap mmol/L BUN (7-17) mg/dL Creatinine (0.52-1.04) mg/dL Est GFR (CKD-EPI)AfAm (>60 ml/min/1.73 sqM) Est GFR (CKD-EPI)NonAf (>60 ml/min/1.73 sqM) Glucose (74-99) mg/dL Lactic Ac Sepsis Rflx Plasma Lactic Acid [place] 5.5 H* (0.7-2.0) mmol/L Calcium (8.4-10.2) mg/dL Total Bilirubin (0.2-1.3) mg/dL AST (14-36) U/L ALT (4-34) U/L Alkaline Phosphatase (38-126) U/L Total Protein (6.3-8.2) g/dL Albumin (3.5-5.0) g/dL Urine Color Urine Appearance (Clear) Urine pH (5.0-8.0) Ur Specific [place] (1.001-1.035) Urine Protein (Negative) Urine Glucose (UA) (Negative) Urine Ketones (Negative) Urine Blood (Negative) Urine Nitrite (Negative) Urine Bilirubin (Negative) Urine Urobilinogen (<2.0) mg/dL Ur Leukocyte Esterase (Negative) Urine RBC (0-5) /hpf Urine WBC (0-5) /hpf Urine WBC Clumps (None) /hpf Ur Squamous Epith Cells (0-4) /hpf Urine Bacteria (None) /hpf Hyaline Casts (0-2) /lpf Urine Mucus (None) /hpf Serum Alcohol mg/dL Disposition Clinical Impression: UTI (urinary tract infection), RORY (acute kidney injury), Dehydration Disposition: ADMITTED IP TO THIS [facility] Condition: Serious
--- NOTE | 2023-05-22 21:53 | CT ---
EXAMINATION TYPE: CT abdomen pelvis wo con CT DLP: 674.8 mGycm, Automated exposure control for dose reduction was used. DATE OF EXAM: 05/22/2023 9:31 PM COMPARISON: 07/26/2021, 12/30/2020 CLINICAL INDICATION:Female, 62 years old with history of R flank pain; Right flank pain TECHNIQUE: Axial CT of the ;CT abdomen pelvis wo con;Sagittal and coronal reformats were created on a separate workstation. Contrast used: mL of , (none if empty) Oral contrast used: without Oral Contrast (none if empty) FINDINGS: LOWER CHEST: Heart is mildly enlarged for size. Moderate coronary artery atherosclerosis. ABDOMEN LIVER: Nodular contour to liver with caudate lobe hypertrophy changes. GALLBLADDER AND BILE DUCTS: The gallbladder surgically absent. PANCREAS: Unremarkable. SPLEEN: Unremarkable. ADRENAL GLANDS: Unremarkable. KIDNEYS AND URETERS: Left renal cortical calcifications could represent thin calcification around a r enal cyst. No obstructing left calculus or hydronephrosis. The right collecting system is minimally dilated without obstructing calculus visualized. There is fa t stranding changes around the right kidney. PELVIS BLADDER: Incompletely distended but grossly unremarkable. REPRODUCTIVE: Unremarkable. ABDOMEN & PELVIS STOMACH AND BOWEL: No evidence of bowel obstruction. The appendix is normal. PERITONEUM/RETROPERITONEUM: No evidence of pneumoperitoneum or free fluid. VASCULATURE: Severe atherosclerotic calcifications are present throughout the abdominal aorta and its branches. No evidence of aortic aneurysm. MUSCULOSKELETAL: No acute osseous abnormalities LYMPH NODES: No gross evidence for lymphadenopathy. SOFT TISSUE/ABDOMINAL WALL: Postsurgical changes anterior abdominal wall with surgical anchors in sca rring present. IMPRESSION: 1. Inflammation changes around the right kidney without evidence for obstructing calculus. Mild dila tion of the collecting system. Correlate for recently passed renal calculus. 2. The appendix is normal. 3. Nodular liver contour with caudate lobe hypertrophy findings compatible with cirrhosis. 4. Mild cardiomegaly. Moderate coronary artery atherosclerosis. 5. Minimally complex left renal cyst. Stable back to 12/30/2020 and likely benign.
[2023-05-22 22:09] LABS: AST 59 U/L (14-36); African American GFR (CKD) 31 (>60 ml/min/1.73 sqM); Albumin 3.8 g/dL (3.5-5.0); Alkaline Phosphatase 30 U/L (38-126); Anion Gap 19 mmol/L; Blood Urea Nitrogen 23 mg/dL (7-17); Calcium 9.9 mg/dL (8.4-10.2); Carbon Dioxide 22 mmol/L (22-30); Chloride 79 mmol/L (98-107); Glucose 183 mg/dL (74-99); Non-African American GFR(CKD) 27 (>60 ml/min/1.73 sqM); Potassium 3.7 mmol/L (3.5-5.1); Sodium 120 mmol/L (137-145); Total Bilirubin 1.4 mg/dL (0.2-1.3); Total Protein 6.1 g/dL (6.3-8.2)
[2023-05-22 22:11] LABS: HCT 39.8 % (34.0-46.0); HGB 14.2 gm/dL (11.4-16.0); MCH 34.9 pg (25.0-35.0); MCHC 35.7 g/dL (31.0-37.0); MCV 97.7 fL (80.0-100.0); Mean Platelet Volume 10.1; RBC 4.08 m/uL (3.80-5.40); RDW 12.5 % (11.5-15.5); WBC 11.9 k/uL (3.8-10.6)
[2023-05-22 22:20] LABS: ALT 61 U/L (4-34)
[2023-05-22] MEDS ORDERED: cefTRIAXone IN SWFI 1,000 MG/10 ML SYRINGE IVP STA (22:30)
[2023-05-22] MEDS ORDERED: THIAMINE 100 MG/ML 2 ML VIAL IM STA (22:36)
[2023-05-22 22:43] LABS: Band Neutrophils % 49 %; Eosinophils # (M) 0.12 k/uL (0-0.7); Lymphocytes # (M) 0.95 k/uL (1.0-4.8); Neutrophils % (M) 37 %; Nucleated Red Blood Cells 0 /100 WBC (0-0); Total Cells Counted 200
[2023-05-22 22:44] LABS: Toxic Granulation Present; Toxic Vacuolation Present
[2023-05-22 22:45] LABS: Platelet Count 62 k/uL (150-450)
[2023-05-22] MEDS: LORazepam 2 MG/ML INJ IV PRN (23:26)
[2023-05-23] MEDS ORDERED: SODIUM CHLORIDE 0.9% 2,000 ML IV ONE (00:37)
[2023-05-23 00:48] LABS: Appearance,Urine Turbid (Clear); Bacteria,Urine Many /hpf; Bilirubin,Urine Negative (Negative); Blood,Urine Large (Negative); Color,Urine Light Red; Glucose,Urine (UA) Negative (Negative); Hyaline Casts,Urine 17 /lpf (0-2); Ketones,Urine Negative (Negative); Leukocyte Esterase,Urine Large (Negative); Mucus,Urine Rare /hpf; Nitrite,Urine Negative (Negative); PH, Urine 5.5 (5.0-8.0); Protein,Urine 2+ (Negative); RBC,Urine 75 /hpf (0-5); Specific Gravity,Urine 1.022 (1.001-1.035); Squamous Epithelial Cell,Urine 7 /hpf (0-4); Urobilinogen,Urine <2.0 mg/dL (<2.0); WBC,Urine >182 /hpf (0-5)
[2023-05-23] MEDS ORDERED: NALOXONE 0.4 MG/ML 1 ML VIAL IV PRN (01:15)
[2023-05-23] MEDS: SODIUM CHLORIDE 0.9% 1,000 ML IV SCH ×3 (04:09→15:03)
[2023-05-23] MEDS: LORazepam 2 MG/ML INJ IV PRN ×8 (06:31→23:32)
[2023-05-23] MEDS: THIAMINE 100 MG TAB PO SCH (07:50)
[2023-05-23 11:33] LABS: Glucose,Whole Blood 129 mg/dL (70-110)
--- NOTE | 2023-05-23 14:06 | US ---
EXAMINATION TYPE: US kidneys/renal and bladder DATE OF EXAM: 05/23/2023 COMPARISON: CT & US CLINICAL INDICATION: Female, 62 years old with history of uti and bacteremia; UTI EXAM MEASUREMENTS: Right Kidney: 14.2 x 6.5 x 7.0 cm Left Kidney: 12.9 x 4.8 x 5.1 cm Left kidney imaged 1st due to pt position/ Limited views due to pt position Right Kidney: Enlarged, no evidence of hydro Left Kidney: No evidence of hydro/ linear calcification upper/mid pole= 1.6 x 2.2 cm Bladder: Cath in place There is no evidence for hydronephrosis at this point in time. No obstructing calculus. No solid mas ses are identified. The urinary bladder is anechoic. Bilateral ureteral jets are seen. IMPRESSION: 1. No evidence for obstructive uropathy. 2. Left renal cortex cyst with peripheral calcification as seen on CT from 05/22/2023.
[2023-05-23 16:13] LABS: Glucose,Whole Blood 104 mg/dL (70-110)
--- NOTE | 2023-05-23 16:34 | P.HPIM ---
History of Present Illness H&P Date: 05/23/23 Chief Complaint: Abdominal pain 62-year-old female presenting with chief complaint of right flank pain. Pain is been ongoing for about 4 days. Patient states that she has been having urgency and frequency as well as hematuria for about 5 days but has been unable to get in with her doctor. She admits to nausea and vomiting as well as fatigue. No chest pain or difficulty breathing. Admits to chills unsure if she has had a fever. Patient is also a daily drinker, last drink was earlier today. WBC 11.9. Sodium 120. BUN 23 and creatinine 1.97, this is increased from baseline. Lactic acid 7.6, likely due to dehydration. Total bilirubin 1.4 and AST 59 ALT 61, which correlates his CT findings of cirrhosis. Urine is positive for UTI. CT shows inflammatory changes around the right kidney, it is possible the patient has recently passed a kidney stone but no obstructing uropathy seen on scan. Patient was given 4 L fluid bolus and started on maintenance rate of 130 miles per hour. She is given IV Rocephin. Patient will be admitted for UTI, acute kidney injury, dehydration, and cirrhosis. Review of Systems REVIEW OF SYSTEMS: CONSTITUTIONAL: No fever, no malaise, no fatigue. HEENT: No recent visual problems or hearing problems. Denied any sore throat. CARDIOVASCULAR: No chest pain, orthopnea, PND, no palpitations, no syncope. PULMONARY: No shortness of breath, no cough, no hemoptysis. GASTROINTESTINAL: No diarrhea, no nausea, no vomiting, no abdominal pain. NEUROLOGICAL: No headaches, no weakness, no numbness. HEMATOLOGICAL: Denies any bleeding or petechiae. GENITOURINARY: Denies any burning micturition, frequency, or urgency. MUSCULOSKELETAL/RHEUMATOLOGICAL: Denies any joint pain, swelling, or any muscle pain. ENDOCRINE: Denies any polyuria or polydipsia. The rest of the 14-point review of systems is negative. Past Medical History Past Medical History: Cancer, Heart Failure, CVA/TIA, Diabetes Mellitus, Hypertension, Myocardial Infarction ([place]), Musculoskeletal Disorder, Neurologic Disorder, Seizure Disorder Additional Past Medical History / Comment(s): Neuropathy of lower extremities and hands, bilateral carpal tunnel, hx CVA in 2002, affected right eye vision, now resolved, still has numbness in right hand, hx TIA's and seizures due to alcoholism, none in yrs, hx of a concussion from a fall in 2010, balance issues from Neuropathy, hx of treatment for TB at 5 yrs old, spot on liver, hx rib and left ankle fractures, hx squamous cell cancer on left forearm and right arm, current kidney stones and gallstones. Last Myocardial Infarction Date:: 2014 per EKG History of Any Multi-Drug Resistant Organisms: None Reported Date of last positivie culture/infection: None MDRO Source:: None Past Surgical History: Section, Cholecystectomy, Hernia Repair, Orthopedic Surgery, Tonsillectomy Additional Past Surgical History / Comment(s): Ventral hernia repair X4, Section X2, debridements of right foot and abdomen, colonoscopy, laparo scopy, seromas drained X2, ganglion cysts removed, left squamous cell cancer removed, cataracts removed, EGD. Past Anesthesia/Blood Transfusion Reactions: No Reported Reaction, Motion Sickness Past Psychological History: Anxiety, Depression Additional Psychological History / Comment(s): . Smoking Status: Current every day smoker Past Alcohol Use History: Abuse, Daily, Heavy Additional Past Alcohol Use History / Comment(s): Drank 6 pack beer per day, then went to a fifth of rum a day. States "now drinks a pint daily, but haven't drank in a few days due to the surgery.". Smokes 10 cigarettes a day, started smoking in 2003 . Past Drug Use History: Marijuana Additional Drug Use History / Comment(s): No current Marijuana use. - Past Family History Father Family Medical History: No Reported History Additional Family Medical History / Comment(s): . Mother Family Medical History: Cancer Additional Family Medical History / Comment(s): breast cancer Brother(s) Additional Family Medical History / Comment(s): Patient has 1 brother that from a motor vehicle accident involving alcohol. Patient has no sisters. Patient has 1 son 21 years old and one daughter 23 years old and she has no contact with her children. Medications and Allergies Home Medications Medication Instructions Recorded Confirmed Type Metoprolol Tartrate [Lopressor] 25 mg PO BID 03/17/19 05/22/23 History Multivit with Calcium,Iron,Min 1 tab PO DAILY 05/18/19 05/22/23 History [Women's Multivitamin] metFORMIN HCL [Glucophage] 500 mg PO BID 08/31/20 05/22/23 History DULoxetine HCL [Cymbalta] 60 mg PO HS 08/07/21 05/22/23 History Biotin 5 mg PO DAILY 08/14/21 05/22/23 History Losartan-Hctz 50-12.5 mg [Hyzaar 1 tab PO DAILY 07/01/22 05/22/23 History 50-12.5] Calcium Carbonate [Calcium] 600 mg PO DAILY 12/22/22 05/22/23 History Vitamin B Complex 1 cap PO DAILY 12/22/22 05/22/23 History Furosemide [Lasix] 40 mg PO DAILY 05/22/23 05/22/23 History HYDROcodone/APAP 5-325MG [Gabriels 1 tab PO BID 05/22/23 05/22/23 History 5-325] Vitamin D3(Unknown Dose) 1 tab PO DAILY 05/22/23 05/22/23 History traZODone HCL 200 mg PO HS 05/22/23 05/22/23 History Allergies Allergy/AdvReac Type Severity Reaction Status Date / Time azithromycin [From Zithromax] Allergy "had very Verified 05/22/23 22:28 bad thrush" Iodinated Contrast Media Allergy Anaphylaxis- Verified 05/22/23 22:28 [Iodinated Contrast Media - Lungs IV Dye] filled up with fluid shellfish derived [Shellfish] Allergy Swelling, Verified 05/22/23 22:28 NAUSEA pregabalin [From Lyrica] AdvReac Nausea & Verified 05/22/23 22:28 Vomiting, dizziness Physical Exam Vitals: Vital Signs Temp Pulse Pulse Resp BP BP Pulse Ox 05/23/23 07:42 98.3 F 106 H 20 126/72 97 05/23/23 06:35 97.6 F 106 H 20 145/79 95 05/23/23 05:00 98 16 116/78 95 05/23/23 03:00 86 20 113/90 94 L 05/23/23 02:00 81 16 111/73 96 05/23/23 01:00 83 16 93/60 95 05/23/23 00:00 90 22 107/76 96 05/22/23 22:00 86 16 99/66 97 05/22/23 20:46 98.4 F 95 18 105/67 96 Intake and Output 05/22/23 05/23/23 05/23/23 22:59 06:59 14:59 Other: Voiding Method Incontinent External Catheter Weight 81.647 kg 81.647 kg General appearance: alert, in no apparent distress Head exam: Present: atraumatic, normocephalic, normal inspection Eye exam: Present: normal appearance, EOMI Neck exam: Present: normal inspection, full ROM Respiratory exam: Present: normal lung sounds bilaterally. Absent: respiratory distress, wheezes, rales, rhonchi, stridor Cardiovascular Exam: Present: regular rate, normal rhythm, normal heart sounds. Absent: systolic murmur, diastolic murmur, rubs, gallop, clicks GI/Abdominal exam: Present: soft, tenderness. Absent: distended, guarding, rebound, rigid Neurological exam: Present: alert, oriented X3 Psychiatric exam: Present: normal affect, normal mood Skin exam: Present: warm, dry, intact, normal color. Absent: rash Results CBC & Chem 7: 05/22/23 21:22 05/22/23 21:22 Labs: Abnormal Lab Results - Last 24 Hours (Table) 05/22/23 05/22/23 05/22/23 Range/Units 21:22 21:22 21:22 WBC 11.9 H (3.8-10.6) k/uL Plt Count 62 L (150-450) k/uL Neutrophils # (Manual) 10.20 H (1.3-7.7) k/uL Lymphocytes # (Manual) 0.95 L (1.0-4.8) k/uL Sodium 120 L (137-145) mmol/L Chloride 79 L (98-107) mmol/L BUN 23 H (7-17) mg/dL Creatinine 1.97 H (0.52-1.04) mg/dL Glucose 183 H (74-99) mg/dL Plasma Lactic Acid Severino 7.6 H* (0.7-2.0) mmol/L Total Bilirubin 1.4 H (0.2-1.3) mg/dL AST 59 H (14-36) U/L ALT 61 H (4-34) U/L Alkaline Phosphatase 30 L (38-126) U/L Total Protein 6.1 L (6.3-8.2) g/dL Urine Appearance (Clear) Urine Protein (Negative) Urine Blood (Negative) Ur Leukocyte Esterase (Negative) Urine RBC (0-5) /hpf Urine WBC (0-5) /hpf Urine WBC Clumps (None) /hpf Ur Squamous Epith Cells (0-4) /hpf Urine Bacteria (None) /hpf Hyaline Casts (0-2) /lpf Urine Mucus (None) /hpf 05/23/23 05/23/23 05/23/23 Range/Units 00:30 00:38 03:34 WBC (3.8-10.6) k/uL Plt Count (150-450) k/uL Neutrophils # (Manual) (1.3-7.7) k/uL Lymphocytes # (Manual) (1.0-4.8) k/uL Sodium (137-145) mmol/L Chloride (98-107) mmol/L BUN (7-17) mg/dL Creatinine (0.52-1.04) mg/dL Glucose (74-99) mg/dL Plasma Lactic Acid Severino 5.5 H* 4.6 H* (0.7-2.0) mmol/L Total Bilirubin (0.2-1.3) mg/dL AST (14-36) U/L ALT (4-34) U/L Alkaline Phosphatase (38-126) U/L Total Protein (6.3-8.2) g/dL Urine Appearance Turbid H (Clear) Urine Protein 2+ H (Negative) Urine Blood Large H (Negative) Ur Leukocyte Esterase Large H (Negative) Urine RBC 75 H (0-5) /hpf Urine WBC >182 H (0-5) /hpf Urine WBC Clumps Moderate H (None) /hpf Ur Squamous Epith Cells 7 H (0-4) /hpf Urine Bacteria Many H (None) /hpf Hyaline Casts 17 H (0-2) /lpf Urine Mucus Rare H (None) /hpf 05/23/23 Range/Units 08:21 WBC (3.8-10.6) k/uL Plt Count (150-450) k/uL Neutrophils # (Manual) (1.3-7.7) k/uL Lymphocytes # (Manual) (1.0-4.8) k/uL Sodium (137-145) mmol/L Chloride (98-107) mmol/L BUN (7-17) mg/dL Creatinine (0.52-1.04) mg/dL Glucose (74-99) mg/dL Plasma Lactic Acid Severino 4.1 H* (0.7-2.0) mmol/L Total Bilirubin (0.2-1.3) mg/dL AST (14-36) U/L ALT (4-34) U/L Alkaline Phosphatase (38-126) U/L Total Protein (6.3-8.2) g/dL Urine Appearance (Clear) Urine Protein (Negative) Urine Blood (Negative) Ur Leukocyte Esterase (Negative) Urine RBC (0-5) /hpf Urine WBC (0-5) /hpf Urine WBC Clumps (None) /hpf Ur Squamous Epith Cells (0-4) /hpf Urine Bacteria (None) /hpf Hyaline Casts (0-2) /lpf Urine Mucus (None) /hpf Thrombosis Risk Factor Assmnt - Choose All That Apply Any of the Below Risk Factors Present?: No Each Risk Factor Represents 2 Points: Age 61-74 years Other congenital or acquired thrombophilia - If yes, enter type in comment: No Thrombosis Risk Factor Assessment Total Risk Factor Score: 2 Thrombosis Risk Factor Assessment Level: Low Risk Assessment and Plan Assessment: 1. UTI; patient has been placed on IV Rocephin 2 g every 6 hours - Urine culture obtained; final antibiotic recommendations pending culture results 2. Bacteremia; blood cultures are positive for gram-negative bacilli; patient is currently on Rocephin 2 g IV daily; we will consult 2. Acute renal injury/dehydration; likely related to nausea and vomiting; patient remains on IV fluids; monitor strict ELY's, daily weights, renal fu nction and electrolytes; avoid nephrotoxins and hypotension; we will hold Lasix and Hyzaar; initiate therapy once renal function is improved 3. Hyponatremia; likely related to vomiting; patient has been placed for normal saline at a rate of 130 mL an hour; we will monitor electrolytes closely and make further recommendations as needed 4. Lactic acidosis; likely multifactorial; related to infection/dehydration; patient has been placed many fluids; lactic acid is trending down 5. Transaminitis; history of liver cirrhosis; we will monitor liver enzymes closely; we will initiate further workup if liver enzymes continue to trend up 6. Hypertension; resume home dose of metoprolol 25 mg twice a day ; hold Hyzaar given acute renal injury 7. Diabetes mellitus type 2; metformin 500 mg twice a day; monitor Accu-Cheks every 6 hours as with insulin sliding scale 8. Depression; Cymbalta 60 mg daily at bedtime; trazodone 100 mg by mouth daily at bedtime
[2023-05-23] MEDS: metFORMIN 500 MG TAB PO SCH (16:44)
[2023-05-23] MEDS: DEXMEDETOMIDINE/0.9% NACL(PMX) 400 MCG in EMPTY BAG 1 BAG IV SCH (18:37)
[2023-05-23 19:07] LABS: Glucose,Whole Blood 110 mg/dL (70-110)
[2023-05-23 19:16] LABS: HCT 36.3 % (34.0-46.0); HGB 12.8 gm/dL (11.4-16.0); MCH 35.4 pg (25.0-35.0); MCHC 35.3 g/dL (31.0-37.0); MCV 100.1 fL (80.0-100.0); Mean Platelet Volume 10.3; RBC 3.62 m/uL (3.80-5.40); RDW 13.4 % (11.5-15.5); WBC 7.8 k/uL (3.8-10.6)
[2023-05-23 19:17] LABS: Platelet Count 37 k/uL (150-450)
[2023-05-23 19:27] LABS: African American GFR (CKD) 43 (>60 ml/min/1.73 sqM); Anion Gap 14 mmol/L; Blood Urea Nitrogen 29 mg/dL (7-17); Calcium 8.4 mg/dL (8.4-10.2); Carbon Dioxide 17 mmol/L (22-30); Chloride 93 mmol/L (98-107); Glucose 102 mg/dL (74-99); Non-African American GFR(CKD) 37 (>60 ml/min/1.73 sqM); Potassium 3.7 mmol/L (3.5-5.1); Sodium 124 mmol/L (137-145)
[2023-05-23 19:37] LABS: Magnesium 0.6 mg/dL (1.6-2.3)
[2023-05-23] MEDS ORDERED: Magnesium Replacement Protocol 1 EACH MISC MISCELLANE PRN (19:42)
[2023-05-23] MEDS: MAGNESIUM SULFATE-D5W PMX 1 GM in DEXTROSE/WATER 1 100ML.BAG IVPB SCH ×4 (19:54→22:59)
[2023-05-23] MEDS ORDERED: Potassium Replacement Protocol 1 EACH MISC MISCELLANE PRN (19:55)
[2023-05-23] MEDS: POTASSIUM CHLORIDE 10 MEQ in WATER FOR INJECTION 1 100ML.BAG IVPB SCH ×2 (20:24→21:04)
[2023-05-23] MEDS ORDERED: DILTIAZEM DRIP BOLUS FROM BAG 1 MG SOLN IV ONE (20:56)
[2023-05-23] MEDS: DILTIAZEM 125 MG in SODIUM CHLORIDE 0.9% 100 ML IV SCH (21:15)
[2023-05-23] MEDS: traZODone HCL 100 MG TAB PO SCH (21:44)
[2023-05-23] MEDS: DULoxetine HCL 60 MG CAPSULE.DR PO SCH (21:44)
[2023-05-23] MEDS: METOPROLOL TARTRATE 25 MG TAB PO SCH (21:44)
[2023-05-23] MEDS: LACTATED RINGERS 1,000 ML IV SCH ×2 (22:59→23:02)
[2023-05-24 01:32] LABS: ABG Base Excess -4.3 mmol/L; ABG HCO3 20 mmol/L (21-25); ABG Oxygen Saturation 97.7 % (94-97); ABG PCO2 29 mmHg (35-45); ABG PH 7.44 (7.35-7.45); ABG PO2 82 mmHg (83-108); ABG TCO2 21 mmol/L (19-24); Allen Test Performed? Yes
[2023-05-24] MEDS: NOREPINEPHRINE 4 MG in SODIUM CHLORIDE 0.9% 250 ML IV SCH ×2 (01:38→21:44)
[2023-05-24] MEDS: DEXMEDETOMIDINE/0.9% NACL(PMX) 400 MCG in EMPTY BAG 1 BAG IV SCH (01:54)
[2023-05-24] MEDS: SODIUM CHLORIDE 0.9% 1,000 ML IV SCH ×3 (01:54→16:19)
[2023-05-24 06:04] LABS: African American GFR (CKD) 39 (>60 ml/min/1.73 sqM); Anion Gap 14 mmol/L; Blood Urea Nitrogen 32 mg/dL (7-17); Calcium 8.2 mg/dL (8.4-10.2); Carbon Dioxide 14 mmol/L (22-30); Chloride 97 mmol/L (98-107); Glucose 127 mg/dL (74-99); Magnesium 1.7 mg/dL (1.6-2.3); Non-African American GFR(CKD) 34 (>60 ml/min/1.73 sqM); Potassium 3.9 mmol/L (3.5-5.1); Sodium 125 mmol/L (137-145)
[2023-05-24] MEDS: POTASSIUM CHLORIDE 10 MEQ in WATER FOR INJECTION 1 100ML.BAG IVPB SCH ×2 (06:26→07:53)
[2023-05-24] MEDS ORDERED: MAGNESIUM SULFATE-D5W PMX 1 GM in DEXTROSE/WATER 1 100ML.BAG IVPB ONE (06:30)
[2023-05-24 06:44] LABS: HCT 35.9 % (34.0-46.0); MCH 34.4 pg (25.0-35.0); MCHC 33.4 g/dL (31.0-37.0); Macrocytosis Slight; Mean Platelet Volume 11.4; RBC 3.49 m/uL (3.80-5.40); RDW 13.3 % (11.5-15.5); WBC 7.2 k/uL (3.8-10.6)
[2023-05-24] MEDS ORDERED: SODIUM CHLORIDE 0.9% 1,000 ML IV ONE (07:47)
[2023-05-24] MEDS: METOPROLOL TARTRATE 25 MG TAB PO SCH ×2 (07:52→19:59)
[2023-05-24] MEDS: CALCIUM CARBONATE 500 MG CHEWABLE PO SCH (08:00)
[2023-05-24] MEDS ORDERED: LACTATED RINGERS 1,000 ML IV SCH (08:00)
[2023-05-24] MEDS: metFORMIN 500 MG TAB PO SCH ×2 (08:00→16:44)
[2023-05-24] MEDS: PANTOPRAZOLE 40 MG/10 ML VIAL IV SCH (08:00)
[2023-05-24] MEDS: MULTIVITAMINS, THERA 1 EACH TAB PO SCH (08:00)
[2023-05-24] MEDS: THIAMINE 100 MG TAB PO SCH (08:00)
[2023-05-24] MEDS: HALOPERIDOL LACTATE 5 MG/ML 1 ML VIAL IVP PRN ×2 (08:06→10:37)
[2023-05-24 08:07] LABS: Band Neutrophils % 2 %; Lymphocytes # (M) 0.36 k/uL (1.0-4.8); Monocytes # (M) 0.43 k/uL (0-1.0); Neutrophils % (M) 87 %; Nucleated Red Blood Cells 0 /100 WBC (0-0); Total Cells Counted 100; Toxic Vacuolation Present
[2023-05-24 08:08] LABS: Platelet Count 36 k/uL (150-450)
[2023-05-24] MEDS ORDERED: NON FORMULARY DRUG (Vitamin B Complex [Vitamin B Complex] 1 EACH Capsule) PO SCH (09:00)
--- NOTE | 2023-05-24 09:12 | P.CONS ---
History of Present Illness - Reason for Consult Consult date: 05/23/23 Bacteremia Requesting physician: John Carlton - Chief Complaint Right flank pain x 4 days - History of Present Illness Patient is a 62 year old female with a past medical history significant for diabetes mellitus hypertension MS, seizure disorder presenting to the hospital for evaluation of right flank pain patient symptom has been going on for about 4 days before presentation to the hospital patient describing the pain to be moderate in intensity without any radiation patient also complaining of urgency and frequency of the urine along with hematuria. Admits to nausea but no vomiting did have some chills but no fever on presentation to the hospital the patient was afebrile patient was tachycardic did have elevated lactic acid, white count was 11.9 with a left shift, creatinine is 1.97 urine has been positive patient was admitted to the hospital concerning for pyelonephritis blood cultures came back positive with gram-negative bacilli that has prompted this infectious disease consultation Review of Systems Positive point and negatives has been mentioned in the HPI, complete review of systems was performed and all other systems are negative Past Medical History Past Medical History: Cancer, Heart Failure, CVA/TIA, Diabetes Mellitus, Hypertension, Myocardial Infarction (MS), Musculoskeletal Disorder, Neurologic Disorder, Seizure Disorder Additional Past Medical History / Comment(s): Neuropathy of lower extremities and hands, bilateral carpal tunnel, hx CVA in 2002, affected right eye vision, now resolved, still has numbness in right hand, hx TIA's and seizures due to alcoholism, none in yrs, hx of a concussion from a fall in 2010, balance issues from Neuropathy, hx of treatment for TB at 5 yrs old, spot on liver, hx rib and left ankle fractures, hx squamous cell cancer on left forearm and right arm, current kidney stones and gallstones. Last Myocardial Infarction Date:: 2014 per EKG History of Any Multi-Drug Resistant Organisms: None Reported Year Discovered:: None MDRO Source:: None Past Surgical History: Section, Cholecystectomy, Hernia Repair, Orthopedic Surgery, Tonsillectomy Additional Past Surgical History / Comment(s): Ventral hernia repair X4, Section X2, debridements of right foot and abdomen, colonoscopy, laparoscopy, seromas drained X2, ganglion cysts removed, left squamous cell cancer removed, cataracts removed, EGD. Past Anesthesia/Blood Transfusion Reactions: No Reported Reaction, Motion Sickness Past Psychological History: Anxiety, Depression Additional Psychological History / Comment(s): . Smoking Status: Current every day smoker Past Alcohol Use History: Abuse, Daily, Heavy Additional Past Alcohol Use History / Comment(s): Drank 6 pack beer per day, then went to a fifth of rum a day. States "now drinks a pint daily, but haven't drank in a few days due to the surgery.". Smokes 10 cigarettes a day, started smoking in 2003 . Past Drug Use History: Marijuana Additional Drug Use History / Comment(s): No current Marijuana use. - Past Family History Father Family Medical History: No Reported History Additional Family Medical History / Comment(s): . Mother Family Medical History: Cancer Additional Family Medical History / Comment(s): breast cancer Brother(s) Additional Family Medical History / Comment(s): Patient has 1 brother that from a motor vehicle accident involving alcohol. Patient has no sisters. Patient has 1 son 21 years old and one daughter 23 years old and she has no contact with her children. Medications and Allergies Home Medications Medication Instructions Recorded Confirmed Type Multivit with Calcium,Iron,Min 1 tab PO DAILY 05/18/19 05/22/23 History [Women's Multivitamin] metFORMIN HCL [Glucophage] 500 mg PO BID 08/31/20 05/22/23 History DULoxetine HCL [Cymbalta] 60 mg PO HS 08/07/21 05/22/23 History Biotin 5 mg PO DAILY 08/14/21 05/22/23 History Calcium Carbonate [Calcium] 600 mg PO DAILY 12/22/22 05/22/23 History Vitamin B Complex 1 cap PO DAILY 12/22/22 05/22/23 History Furosemide [Lasix] 40 mg PO DAILY 05/22/23 05/22/23 History Vitamin D3(Unknown Dose) 1 tab PO DAILY 05/22/23 05/22/23 History traZODone HCL 200 mg PO HS 05/22/23 05/22/23 History Apixaban [Eliquis] 2.5 mg PO BID tab 06/03/23 Rx Cefdinir [Omnicef] 300 mg PO BID 5 Days #10 cap 06/03/23 Rx HYDROcodone/APAP 5-325MG [Friendship 1 tab PO BID 3 Days #6 tab 06/03/23 Rx 5-325] Metoprolol Tartrate [Lopressor] 100 mg PO BID tab 06/03/23 Rx Spironolactone [Aldactone] 25 mg PO DAILY tab 06/03/23 Rx Thiamine [Vitamin B-1] 100 mg PO DAILY tab 06/03/23 Rx Valsartan [Diovan] 320 mg PO DAILY tab 06/03/23 Rx Allergies Allergy/AdvReac Type Severity Reaction Status Date / Time azithromycin [From Zithromax] Allergy "had very Verified 05/22/23 22:28 bad thrush" Iodinated Contrast Media Allergy Anaphylaxis- Verified 05/22/23 22:28 [Iodinated Contrast Media - Lungs IV Dye] filled up with fluid shellfish derived [Shellfish] Allergy Swelling, Verified 05/22/23 22:28 NAUSEA pregabalin [From Lyrica] AdvReac Nausea & Verified 05/22/23 22:28 Vomiting, dizziness Physical Exam Vitals: Vital Signs Temp Pulse Pulse Resp BP BP Pulse Ox 05/23/23 11:15 111 H 20 130/76 95 05/23/23 07:42 98.3 F 106 H 20 126/72 97 05/23/23 06:35 97.6 F 106 H 20 145/79 95 05/23/23 05:00 98 16 116/78 95 05/23/23 03:00 86 20 113/90 94 L 05/23/23 02:00 81 16 111/73 96 05/23/23 01:00 83 16 93/60 95 05/23/23 00:00 90 22 107/76 96 05/22/23 22:00 86 16 99/66 97 05/22/23 20:46 98.4 F 95 18 105/67 96 Intake and Output 05/22/23 05/23/23 05/23/23 22:59 06:59 14:59 Other: Voiding Method Incontinent External Catheter Weight 81.647 kg 81.647 kg GENERAL DESCRIPTION: Middle-aged female lying in bed, no distress. No tachypnea or accessory muscle of respiration use. HEENT: Shows Pallor , no scleral icterus. Oral mucous membrane is dry. No pharyngeal erythema or thrush NECK: Trachea central, no thyromegaly. LUNGS: Unlabored breathing. Clear to auscultation anteriorly. No wheeze or crackle. HEART: S1, S2, regular rate and rhythm. No loud murmur ABDOMEN: Soft, no tenderness , guarding or rigidity, no organomegaly EXTREMITIES: No edema of feet. SKIN: No rash, no masses palpable. NEUROLOGICAL: The patient is awake, alert, oriented x3, mood and affect normal. Results CBC & Chem 7: 06/02/23 03:05 06/02/23 03:05 Labs: Abnormal Lab Results - Last 24 Hours (Table) 05/22/23 05/22/23 05/22/23 Range/Units 21:22 21:22 21:22 WBC 11.9 H (3.8-10.6) k/uL Plt Count 62 L (150-450) k/uL Neutrophils # (Manual) 10.20 H (1.3-7.7) k/uL Lymphocytes # (Manual) 0.95 L (1.0-4.8) k/uL Sodium 120 L (137-145) mmol/L Chloride 79 L (98-107) mmol/L BUN 23 H (7-17) mg/dL Creatinine 1.97 H (0.52-1.04) mg/dL Glucose 183 H (74-99) mg/dL POC Glucose (mg/dL) (70-110) mg/dL Plasma Lactic Acid Severino 7.6 H* (0.7-2.0) mmol/L Total Bilirubin 1.4 H (0.2-1.3) mg/dL AST 59 H (14-36) U/L ALT 61 H (4-34) U/L Alkaline Phosphatase 30 L (38-126) U/L Total Protein 6.1 L (6.3-8.2) g/dL Urine Appearance (Clear) Urine Protein (Negative) Urine Blood (Negative) Ur Leukocyte Esterase (Negative) Urine RBC (0-5) /hpf Urine WBC (0-5) /hpf Urine WBC Clumps (None) /hpf Ur Squamous Epith Cells (0-4) /hpf Urine Bacteria (None) /hpf Hyaline Casts (0-2) /lpf Urine Mucus (None) /hpf 05/23/23 05/23/23 05/23/23 Range/Units 00:30 00:38 03:34 WBC (3.8-10.6) k/uL Plt Count (150-450) k/uL Neutrophils # (Manual) (1.3-7.7) k/uL Lymphocytes # (Manual) (1.0-4.8) k/uL Sodium (137-145) mmol/L Chloride (98-107) mmol/L BUN (7-17) mg/dL Creatinine (0.52-1.04) mg/dL Glucose (74-99) mg/dL POC Glucose (mg/dL) (70-110) mg/dL Plasma Lactic Acid Severino 5.5 H* 4.6 H* (0.7-2.0) mmol/L Total Bilirubin (0.2-1.3) mg/dL AST (14-36) U/L ALT (4-34) U/L Alkaline Phosphatase (38-126) U/L Total Protein (6.3-8.2) g/dL Urine Appearance Turbid H (Clear) Urine Protein 2+ H (Negative) Urine Blood Large H (Negative) Ur Leukocyte Esterase Large H (Negative) Urine RBC 75 H (0-5) /hpf Urine WBC >182 H (0-5) /hpf Urine WBC Clumps Moderate H (None) /hpf Ur Squamous Epith Cells 7 H (0-4) /hpf Urine Bacteria Many H (None) /hpf Hyaline Casts 17 H (0-2) /lpf Urine Mucus Rare H (None) /hpf 05/23/23 05/23/23 Range/Units 08:21 11:31 WBC (3.8-10.6) k/uL Plt Count (150-450) k/uL Neutrophils # (Manual) (1.3-7.7) k/uL Lymphocytes # (Manual) (1.0-4.8) k/uL Sodium (137-145) mmol/L Chloride (98-107) mmol/L BUN (7-17) mg/dL Creatinine (0.52-1.04) mg/dL Glucose (74-99) mg/dL POC Glucose (mg/dL) 129 H (70-110) mg/dL Plasma Lactic Acid Severino 4.1 H* (0.7-2.0) mmol/L Total Bilirubin (0.2-1.3) mg/dL AST (14-36) U/L ALT (4-34) U/L Alkaline Phosphatase (38-126) U/L Total Protein (6.3-8.2) g/dL Urine Appearance (Clear) Urine Protein (Negative) Urine Blood (Negative) Ur Leukocyte Esterase (Negative) Urine RBC (0-5) /hpf Urine WBC (0-5) /hpf Urine WBC Clumps (None) /hpf Ur Squamous Epith Cells (0-4) /hpf Urine Bacteria (None) /hpf Hyaline Casts (0-2) /lpf Urine Mucus (None) /hpf Microbiology - Last 24 Hours (Table) 05/22/23 23:00 Blood Culture Gram Stain - Preliminary Blood 05/22/23 22:45 Blood Culture Gram Stain - Preliminary Blood Assessment and Plan (1) Gram-negative bacteremia Current Visit: Yes Status: Acute Code(s): R78.81 - BACTEREMIA SNOMED Code(s): 160793693030 (2) Urinary tract infection Current Visit: Yes Status: Acute Code(s): N39.0 - URINARY TRACT INFECTION, SITE NOT SPECIFIED SNOMED Code(s): 06948845 Plan: 1patient presented to the hospital with sepsis in this patient who did have a elevated white count and tachycardia elevated lactic acid has been complaining of right flank pain positive UA likely complicated UTI 2blood culture positive for gram-negative bacilli source is likely urinary 3-obtain ultrasound of the kidney and bladder to make sure no evidence of any hydronephrosis 4continue with Rocephin 2 g daily while waiting for the cultures to finalize We will follow on clinical condition and cultures to further adjust medication if needed Thank you for this consultation will follow this patient with you Dictation was produced using [employer] dictation software. please excuse any grammatical, word or spelling errors. Time with Patient: Greater than 30
--- NOTE | 2023-05-24 09:48 | P.CNPUL ---
History of Present Illness Consult date: 05/24/23 Requesting physician: Yobani E Mauro Reason for consult: other (Critical care management) Chief complaint: Right flank pain, urgency and frequency of urine History of present illness: This is a 62-year-old female patient who presented to the emergency room on 05/22/2023 with complaints of right flank pain. She had a four-day history of ongoing urgency and frequency and hematuria but was unable to see her primary doctor. She was having issues with nausea and vomiting as well. She has a his tory of diabetes mellitus, hypertension, diabetic neuropathy, CVA, alcoholic seizures, kidney stones chronic and ongoing tobacco dependence, marijuana use, daily heavy alcohol use admitting to a fifth of whiskey a day. Her last drink was earlier in the day on the . Computed tomography scan of the abdomen and pelvis revealed inflammation changes around the right kidney without evidence of obstructing calculus. Mild dilatation of the collecting system. Correlate for recently passed renal calculus. Nodular liver contour with caudate lobe hypertrophy findings compatible with cirrhosis. Ultrasound of the kidneys and bladder revealed no evidence of obstructive uropathy. She was admitted to the regular medical floor with urinary tract infection, acute kidney injury and dehydration. At approximately 6:00 last evening the patient developed hypertension, tachycardia, hallucinations and a CIWA scale score greater than 15. The patient was transferred to the intensive care unit and initiated on Precedex infusion. She is seen today in consultation. She is arousable, oriented, calm and cooperative. Remains on Precedex at 0.3 mcg/kg per hour. She has normal saline and 130 ML's per hour. She had issues with atrial fibrillation with a rapid ventricular response and required Cardizem drip and hypotension with norepinephrine briefly. Both drips are currently on pause. White count 7.2. Hemoglobin 12.0. Platelets 36,000. Arterial blood gases revealed a PaO2 of 82, pCO2 29 and a pH of 7.44 and 44% FiO2. Sodium 125. Potassium 3.9. Bicarb 14. BUN 32. Creatinine 1.63. Glucose 127. She is on antibiotics in the form of ceftriaxone. Review of Systems REVIEW OF SYSTEMS: CONSTITUTIONAL: Denies any recent significant weight loss or weight gain. EYES: Denies change in vision. EARS, NOSE, MOUTH, THROAT: Denies headaches, denies sore throat. CARDIOVASCULAR: Denies chest pain, palpitations or syncopal episodes. RESPIRATORY: Denies shortness of breath, cough, congestion or hemoptysis. GASTROINTESTINAL: Denies change in appetite, denies abdominal pain GENITOURINARY: Resident for urgency, frequency, hematuria, denies infections. MUSKULOSKELETAL: Denies pain, denies swelling. INTEGUMENTARY: Denies rash, denies eczema. NEUROLOGICAL: Altered mental status, hallucinations, no recent seizure activity. PSYCHIATRIC: Denies anxiety, denies depression. HEMATOLOGIC/LYMPHATIC: Denies anemia, denies enlarged lymph nodes. Past Medical History Past Medical History: Cancer, Heart Failure, CVA/TIA, Diabetes Mellitus, Hypertension, Myocardial Infarction (CA), Musculoskeletal Disorder, Neurologic Disorder, Seizure Disorder Additional Past Medical History / Comment(s): Neuropathy of lower extremities and hands, bilateral carpal tunnel, hx CVA in 2002, affected right eye vision, now resolved, still has numbness in right hand, hx TIA's and seizures due to alcoholism, none in yrs, hx of a concussion from a fall in 2010, balance issues from Neuropathy, hx of treatment for TB at 5 yrs old, spot on liver, hx rib and left ankle fractures, hx squamous cell cancer on left forearm and right arm, current kidney stones and gallstones. Last Myocardial Infarction Date:: 2014 per EKG History of Any Multi-Drug Resistant Organisms: None Reported Date of last positivie culture/infection: None MDRO Source:: None Past Surgical History: Section, Cholecystectomy, Hernia Repair, Orthopedic Surgery, Tonsillectomy Additional Past Surgical History / Comment(s): Ventral hernia repair X4, Section X2, debridements of right foot and abdomen, colonoscopy, laparoscopy, seromas drained X2, ganglion cysts removed, left squamous cell cancer removed, cataracts removed, EGD. Past Anesthesia/Blood Transfusion Reactions: No Reported Reaction, Motion Sickness Past Psychological History: Anxiety, Depression Additional Psychological History / Comment(s): . Smoking Status: Current every day smoker Past Alcohol Use History: Abuse, Daily, Heavy Additional Past Alcohol Use History / Comment(s): Drank 6 pack beer per day, then went to a fifth of rum a day. States "now drinks a pint daily, but haven't drank in a few days due to the surgery.". Smokes 10 cigarettes a day, started smoking in 2003 . Past Drug Use History: Marijuana Additional Drug Use History / Comment(s): No current Marijuana use. - Past Family History Father Family Medical History: No Reported History Additional Family Medical History / Comment(s): . Mother Family Medical History: Cancer Additional Family Medical History / Comment(s): breast cancer Brother(s) Additional Family Medical History / Comment(s): Patient has 1 brother that from a motor vehicle accident involving alcohol. Patient has no sisters. Patient has 1 son 21 years old and one daughter 23 years old and she has no contact with her children. Medications and Allergies Home Medications Medication Instructions Recorded Confirmed Type Metoprolol Tartrate [Lopressor] 25 mg PO BID 03/17/19 05/22/23 History Multivit with Calcium,Iron,Min 1 tab PO DAILY 05/18/19 05/22/23 History [Women's Multivitamin] metFORMIN HCL [Glucophage] 500 mg PO BID 08/31/20 05/22/23 History DULoxetine HCL [Cymbalta] 60 mg PO HS 08/07/21 05/22/23 History Biotin 5 mg PO DAILY 08/14/21 05/22/23 History Losartan-Hctz 50-12.5 mg [Hyzaar 1 tab PO DAILY 07/01/22 05/22/23 History 50-12.5] Calcium Carbonate [Calcium] 600 mg PO DAILY 12/22/22 05/22/23 History Vitamin B Complex 1 cap PO DAILY 12/22/22 05/22/23 History Furosemide [Lasix] 40 mg PO DAILY 05/22/23 05/22/23 History HYDROcodone/APAP 5-325MG [Yeaddiss 1 tab PO BID 05/22/23 05/22/23 History 5-325] Vitamin D3(Unknown Dose) 1 tab PO DAILY 05/22/23 05/22/23 History traZODone HCL 200 mg PO HS 05/22/23 05/22/23 History Allergies Allergy/AdvReac Type Severity Reaction Status Date / Time azithromycin [From Zithromax] Allergy "had very Verified 05/22/23 22:28 bad thrush" Iodinated Contrast Media Allergy Anaphylaxis- Verified 05/22/23 22:28 [Iodinated Contrast Media - Lungs IV Dye] filled up with fluid shellfish derived [Shellfish] Allergy Swelling, Verified 05/22/23 22:28 NAUSEA pregabalin [From Lyrica] AdvReac Nausea & Verified 05/22/23 22:28 Vomiting, dizziness Physical Exam Vitals: Vital Signs Temp Pulse Pulse Resp BP BP Pulse Ox 05/24/23 09:00 56 L 31 H 125/57 97 05/24/23 08:00 89 41 H 86/70 96 05/24/23 07:15 76 34 H 129/77 98 05/24/23 07:00 75 42 H 107/63 95 05/24/23 06:45 74 34 H 117/85 97 05/24/23 06:30 77 43 H 118/73 95 05/24/23 06:15 75 33 H 107/68 97 05/24/23 06:00 74 34 H 72/59 99 05/24/23 05:45 74 25 H 105/65 98 05/24/23 05:30 74 33 H 105/59 99 05/24/23 05:15 73 37 H 93/62 99 05/24/23 05:00 76 26 H 98/61 98 05/24/23 04:45 73 39 H 87/60 98 05/24/23 04:30 73 47 H 95/61 98 05/24/23 04:15 72 32 H 96/63 99 05/24/23 04:00 98.1 F 73 38 H 89/62 98 05/24/23 03:45 73 40 H 95/62 97 05/24/23 03:30 72 41 H 93/62 98 05/24/23 03:15 72 41 H 96/64 98 05/24/23 03:00 72 41 H 98/61 98 05/24/23 02:50 73 41 H 110/60 97 05/24/23 02:45 76 42 H 92/54 98 05/24/23 02:40 72 38 H 84/56 98 05/24/23 02:35 63 43 H 77/53 97 05/24/23 02:20 71 41 H 80/52 97 05/24/23 02:15 71 44 H 73/50 98 05/24/23 02:10 71 42 H 84/51 97 05/24/23 02:05 72 39 H 88/63 97 05/24/23 02:00 73 38 H 115/99 96 05/24/23 01:55 96 46 H 76/47 96 05/24/23 01:45 73 43 H 89/49 97 05/24/23 01:30 112 H 46 H 69/42 96 05/24/23 01:15 73 40 H 84/72 98 05/24/23 01:00 92 37 H 78/46 96 05/24/23 00:45 73 37 H 115/77 98 05/24/23 00:30 97 48 H 73/48 94 L 05/24/23 00:15 72 40 H 72/44 95 05/24/23 00:00 97.8 F 73 41 H 70/40 96 05/23/23 23:45 73 36 H 125/86 94 L 05/23/23 23:30 141 H 33 H 111/78 93 L 05/23/23 23:15 81 45 H 66/47 96 05/23/23 23:00 71 44 H 86/76 97 05/23/23 22:45 114 H 45 H 96/54 96 05/23/23 22:30 88 49 H 70/47 92 L 05/23/23 22:15 99 48 H 78/47 92 L 05/23/23 22:00 94 50 H 73/52 93 L 05/23/23 21:45 72 45 H 82/54 93 L 05/23/23 21:30 121 H 48 H 149/103 94 L 05/23/23 21:15 135 H 44 H 127/108 90 L 05/23/23 21:00 112 H 49 H 96/67 92 L 05/23/23 20:45 120 H 38 H 79/69 96 05/23/23 20:30 122 H 40 H 98/66 95 05/23/23 20:15 149 H 45 H 89/63 94 L 05/23/23 20:00 97.9 F 103 H 40 H 141/92 94 L 05/23/23 19:45 109 H 39 H 141/92 93 L 05/23/23 19:30 117 H 43 H 141/92 93 L 05/23/23 19:00 134 H 24 141/92 94 L 05/23/23 18:45 140 H 33 H 174/97 91 L 05/23/23 17:45 99.0 F 126 H 40 H 168/90 95 05/23/23 16:56 99.4 F 05/23/23 15:13 98.6 F 117 H 20 154/87 94 L 05/23/23 14:05 111 H 05/23/23 11:15 111 H 20 130/76 95 Intake and Output 05/23/23 05/24/23 05/24/23 22:59 06:59 14:59 Intake Total 4082.341 4238.031 347.512 Output Total 150 0 20 Balance 373.909 2168.031 327.512 Intake: IV 890 2140 330 Lactated Ringers 1,000 ml 1000 @ 999 mls/hr IV .Q1H1M RAUL Rx#:[id number] Magnesium Sulfate-D5w Pmx 300 100 100 1 gm In Dextrose/Water 1 100ml.bag @ 100 mls/hr IVPB Q1H RAUL Rx#: [id number] Potassium Chloride 10 meq 200 100 In Water For Injection 1 100ml.bag @ 100 mls/hr IVPB Q1H RAUL Rx#: [id number] Sodium Chloride 0.9% 1, 390 1040 130 000 ml @ 130 mls/hr IV . Q7H42M RAUL Rx#:[id number] Intake, IV Titration 171.062 182.031 17.512 Amount Dexmedetomidine/0.9% NaCl 41.062 79.438 12.587 (Pmx) 400 mcg In Empty Bag 1 bag @ 0.2 MCG/KG/HR 4.082 mls/hr IV .Q24H RAUL Rx#:[id number] Diltiazem 125 mg In 31.667 Sodium Chloride 0.9% 100 ml @ 10 MG/HR 10 mls/hr IV .[id number] RAUL Rx#: [id number] Norepinephrine 4 mg In 70.926 4.925 Sodium Chloride 0.9% 250 ml @ 0.03 MCG/KG/MIN 9. 332 mls/hr IV .Q24H RAUL Rx#:[id number] Sodium Chloride 0.9% 1, 130 000 ml @ 130 mls/hr IV . Q7H42M RAUL Rx#:[id number] Oral 30 Output: Urine 150 0 20 Other: Voiding Method External Catheter External Catheter External Catheter # Voids 1 Weight 94.3 kg GENERAL EXAM: Arousable, 62-year-old female, on 2 L nasal cannula, comfortable in no apparent distress. HEAD: Normocephalic. EYES: Normal reaction of pupils, equal size. NOSE: Clear with pink turbinates. THROAT: No erythema or exudates. NECK: No masses, no JVD. CHEST: No chest wall deformity. LUNGS: Equal air entry with no crackles, wheeze, rhonchi or dullness. CVS: S1 and S2 normal with no audible murmur, regular rhythm. ABDOMEN: No hepatosplenomegaly, normal bowel sounds, no guarding or rigidity. SPINE: No scoliosis or deformity SKIN: No rashes CENTRAL NERVOUS SYSTEM: No focal deficits, tone is normal in all 4 extremities. EXTREMITIES: There is no peripheral edema. No clubbing, no cyanosis. Peripher al pulses are intact. Results - Laboratory Findings CBC and BMP: 05/24/23 05:49 05/24/23 05:49 ABG ABG pH 7.44 (7.35-7.45) 05/24/23 01:30 ABG pCO2 29 mmHg (35-45) L 05/24/23 01:30 ABG pO2 82 mmHg (83-108) L 05/24/23 01:30 ABG O2 Saturation 97.7 % (94-97) H 05/24/23 01:30 Abnormal lab findings: Abnormal Labs 05/22/23 05/22/23 05/22/23 21:22 21:22 21:22 WBC 11.9 H RBC MCV MCH Plt Count 62 L Neutrophils # (Manual) 10.20 H Lymphocytes # (Manual) 0.95 L ABG pCO2 ABG pO2 ABG HCO3 ABG O2 Saturation Sodium 120 L Chloride 79 L Carbon Dioxide BUN 23 H Creatinine 1.97 H Glucose 183 H POC Glucose (mg/dL) Plasma Lactic Acid Severino 7.6 H* Calcium Magnesium Total Bilirubin 1.4 H AST 59 H ALT 61 H Alkaline Phosphatase 30 L Total Protein 6.1 L Urine Appearance Urine Protein Urine Blood Ur Leukocyte Esterase Urine RBC Urine WBC Urine WBC Clumps Ur Squamous Epith Cells Urine Bacteria Hyaline Casts Urine Mucus 05/23/23 05/23/23 05/23/23 00:30 00:38 03:34 WBC RBC MCV MCH Plt Count Neutrophils # (Manual) Lymphocytes # (Manual) ABG pCO2 ABG pO2 ABG HCO3 ABG O2 Saturation Sodium Chloride Carbon Dioxide BUN Creatinine Glucose POC Glucose (mg/dL) Plasma Lactic Acid Severino 5.5 H* 4.6 H* Calcium Magnesium Total Bilirubin AST ALT Alkaline Phosphatase Total Protein Urine Appearance Turbid H Urine Protein 2+ H Urine Blood Large H Ur Leukocyte Esterase Large H Urine RBC 75 H Urine WBC >182 H Urine WBC Clumps Moderate H Ur Squamous Epith Cells 7 H Urine Bacteria Many H Hyaline Casts 17 H Urine Mucus Rare H 05/23/23 05/23/23 05/23/23 08:21 11:31 11:35 WBC RBC MCV MCH Plt Count Neutrophils # (Manual) Lymphocytes # (Manual) ABG pCO2 ABG pO2 ABG HCO3 ABG O2 Saturation Sodium Chloride Carbon Dioxide BUN Creatinine Glucose POC Glucose (mg/dL) 129 H Plasma Lactic Acid Severino 4.1 H* 3.8 H* Calcium Magnesium Total Bilirubin AST ALT Alkaline Phosphatase Total Protein Urine Appearance Urine Protein Urine Blood Ur Leukocyte Esterase Urine RBC Urine WBC Urine WBC Clumps Ur Squamous Epith Cells Urine Bacteria Hyaline Casts Urine Mucus 05/23/23 05/23/23 05/23/23 15:35 18:44 18:44 WBC RBC 3.62 L MCV 100.1 H MCH 35.4 H Plt Count 37 L Neutrophils # (Manual) Lymphocytes # (Manual) ABG pCO2 ABG pO2 ABG HCO3 ABG O2 Saturation Sodium 124 L Chloride 93 L Carbon Dioxide 17 L BUN 29 H Creatinine 1.50 H Glucose 102 H POC Glucose (mg/dL) Plasma Lactic Acid Severino 2.8 H* Calcium Magnesium 0.6 L* Total Bilirubin AST ALT Alkaline Phosphatase Total Protein Urine Appearance Urine Protein Urine Blood Ur Leukocyte Esterase Urine RBC Urine WBC Urine WBC Clumps Ur Squamous Epith Cells Urine Bacteria Hyaline Casts Urine Mucus 05/23/23 05/24/23 05/24/23 18:44 01:30 05:49 WBC RBC 3.49 L MCV 103.0 H MCH Plt Count 36 L Neutrophils # (Manual) Lymphocytes # (Manual) 0.36 L ABG pCO2 29 L ABG pO2 82 L ABG HCO3 20 L ABG O2 Saturation 97.7 H Sodium Chloride Carbon Dioxide BUN Creatinine Glucose POC Glucose (mg/dL) Plasma Lactic Acid Severino 3.0 H* Calcium Magnesium Total Bilirubin AST ALT Alkaline Phosphatase Total Protein Urine Appearance Urine Protein Urine Blood Ur Leukocyte Esterase Urine RBC Urine WBC Urine WBC Clumps Ur Squamous Epith Cells Urine Bacteria Hyaline Casts Urine Mucus 05/24/23 05:49 WBC RBC MCV MCH Plt Count Neutrophils # (Manual) Lymphocytes # (Manual) ABG pCO2 ABG pO2 ABG HCO3 ABG O2 Saturation Sodium 125 L Chloride 97 L Carbon Dioxide 14 L BUN 32 H Creatinine 1.63 H Glucose 127 H POC Glucose (mg/dL) Plasma Lactic Acid Severino Calcium 8.2 L Magnesium Total Bilirubin AST ALT Alkaline Phosphatase Total Protein Urine Appearance Urine Protein Urine Blood Ur Leukocyte Esterase Urine RBC Urine WBC Urine WBC Clumps Ur Squamous Epith Cells Urine Bacteria Hyaline Casts Urine Mucus Assessment and Plan Assessment: Acute alcohol withdrawal syndrome requiring Precedex infusion and ICU management. Patient admits to one fifth of whiskey a day Hyponatremia secondary to above Cirrhosis secondary to above Acute kidney injury secondary to dehydration Right flank pain with hematuria, possibly recent kidney stone passed Hypertension Diabetes mellitus Diabetic neuropathy History of CVA/TIA History of seizure secondary to alcohol withdrawal History of anxiety/depression History of marijuana use Chronic and ongoing tobacco dependence aircraft plan: The patient was seen and evaluated Medications and labs reviewed Continue the CIWA protocol Titrate the Precedex as tolerated Add Haldol as needed Give a lactated Ringer's 1 L bolus Continue ceftriaxone May require Cleviprex for hypertension We will continue to monitor in the ICU We will continue to follow and make further recommendations based on her clini keeley status I have personally seen and examined the patient, performed the documentation and the assessment and plan as written. Number of minutes spent on the visit: 20.
[2023-05-24] MEDS: LORazepam 2 MG/ML INJ IV PRN ×4 (10:05→20:11)
[2023-05-24] MEDS ORDERED: HALOPERIDOL LACTATE 5 MG/ML 1 ML VIAL IVP PRN (10:33)
--- NOTE | 2023-05-24 11:34 | CONS ---
CONSULTATION CHIEF COMPLAINT: Atrial fibrillation with poorly controlled ventricular rate. HISTORY OF PRESENT ILLNESS: Anupama is a 62-year-old lady with history of [id number] diabetes, hypertension, who is admitted to the hospital with a chief complaint of right flank pain and is admitted to hospital with urinary tract infection, and developed alcohol withdrawal while in the hospital and is admitted to ICU for the same. I have been consulted because she developed atrial fibrillation with rapid ventricular rate. She was on intravenous Cardizem, and subsequently, it had been stopped after the ventricular rate was well controlled. At the time of my evaluation this morning, she appears confused and denies any new symptoms. Her heart rate is in the 90s, and she is on metoprolol 25 b.i.d. She is on Levophed for hypotension. PAST MEDICAL HISTORY: Significant for diabetes and hypertension. MEDICATIONS: Medications at home included: 1. Glucophage. 2. Lopressor. 3. Hyzaar. 4. [place]. 5. Lasix. 6. Cymbalta. ALLERGIES: To IV dye, shellfish, Lyrica, and Zithromax. FAMILY HISTORY: I am unable to obtain from the patient, who is confused. SOCIAL HISTORY: I am unable to obtain from the patient, who is confused. REVIEW OF SYSTEMS: I am unable to obtain from the patient, who is confused. PHYSICAL EXAMINATION: VITAL SIGNS: Heart rate varies between 50 and 96, blood pressure is 93/58, respiratory rate is 30, O2 saturation is 96%. NECK: There is no jugular venous distention. Carotid upstroke is normal. There is no bruit. CHEST: Reveals diminished air entry at the bases. HEART: Reveals first and second heart sounds. Systolic murmur at the apex. ABDOMEN: Soft. EXTREMITIES: Exam of extremities reveals bilateral 1+ edema and peripheral pulses are palpable. LABORATORY DATA: Lab shows sodium is low at 125, BUN is 32, creatinine is 1.6. Platelet count is low at 36. ASSESSMENT: 1. New onset atrial fibrillation with better controlled ventricular rate. 2. Thrombocytopenia. 3. ETOH abuse. 4. Urinary tract infection. PLAN: I will obtain a 2D echo. Continue the heart rate control with beta blockers and calcium channel blockers as needed, not a candidate for anticoagulation because of severe thrombocytopenia, guarded prognosis. MMODL / IJN: [id number] /
[2023-05-24 11:43] LABS: Glucose,Whole Blood 140 mg/dL (70-110)
[2023-05-24] MEDS: DILTIAZEM 125 MG in SODIUM CHLORIDE 0.9% 100 ML IV SCH ×2 (13:34→21:42)
[2023-05-24] MEDS ORDERED: FUROSEMIDE 10 MG/ML 4 ML VIAL IV STA (14:54)
--- NOTE | 2023-05-24 15:13 | P.PN ---
Subjective Progress Note Date: 05/24/23 Principal diagnosis: E coli pyelonephritis and bacteremia Patient is a 62 year old female with a past medical history significant for diabetes mellitus hypertension [place], seizure disorder presenting to the hospital for evaluation of right flank pain, patient has been diagnosed with right-sided pyelonephritis and did have E. coli bacteremia. Patient has been transferred to the ICU because of DTs On today's evaluation that is 05/24/2023, the patient is afebrile the patient is breathing comfortably on the 2 L nasal cannula oxygen patient remains to be lethargic not elevated good historian no vomiting diarrhea or any other changes reported by the nursing staff. Patient white count of 7.2, creatinine 1.63, abdominal ultrasound evidence of obstructive uropathy blood urine culture with gram-negative bacilli Objective - Vital Signs Vital signs: Vital Signs Temp 98.1 F 05/24/23 12:00 Pulse 85 05/24/23 13:00 Resp 28 H 05/24/23 13:00 BP 103/63 05/24/23 13:00 Pulse Ox 96 05/24/23 13:00 FiO2 Intake & Output 05/23/23 05/24/23 05/24/23 18:59 06:59 18:59 Intake Total 30 3383.093 2227.512 Output Total 200 50 20 Balance -170 3333.093 2207.512 Weight 94.3 kg Intake: IV 3030 2210 Lactated Ringers 1,000 ml 1000 1000 @ 999 mls/hr IV .Q1H1M [facility]UL Rx#:[id number] Magnesium Sulfate-D5w Pmx 400 100 1 gm In Dextrose/Water 1 100ml.bag @ 100 mls/hr IVPB Q1H RAUL Rx#: [id number] Potassium Chloride 10 meq 200 200 In Water For Injection 1 100ml.bag @ 100 mls/hr IVPB Q1H RAUL Rx#: [id number] Sodium Chloride 0.9% 1, 1430 910 000 ml @ 130 mls/hr IV . Q7H42M RAUL Rx#:[id number] Intake, IV Titration 353.093 17.512 Amount Dexmedetomidine/0.9% NaCl 120.500 12.587 (Pmx) 400 mcg In Empty Bag 1 bag @ 0.2 MCG/KG/HR 4.082 mls/hr IV .Q24H [facility]UL Rx#:[id number] Diltiazem 125 mg In 31.667 Sodium Chloride 0.9% 100 ml @ 10 MG/HR 10 mls/hr IV .[id number] RAUL Rx#: [id number] Norepinephrine 4 mg In 70.926 4.925 Sodium Chloride 0.9% 250 ml @ 0.03 MCG/KG/MIN 9. 332 mls/hr IV .Q24H RAUL Rx#:[id number] Sodium Chloride 0.9% 1, 130 000 ml @ 130 mls/hr IV . Q7H42M RAUL Rx#:[id number] Oral 30 Output: Urine 200 50 20 Other: Voiding Method Incontinent External Catheter External Catheter External Catheter # Voids 1 - Exam GENERAL DESCRIPTION: A middle-aged female lying in bed in no distress RESPIRATORY SYSTEM: Unlabored breathing , decreased breath sound at the bases HEART: S1 S2 regular rate and rhythm , ABDOMEN: Soft , no tenderness EXTREMITIES: No edema feet - Labs CBC & Chem 7: 05/24/23 05:49 05/24/23 05:49 Labs: Abnormal Lab Results - Last 24 Hours (Table) 05/23/23 05/23/23 05/23/23 Range/Units 15:35 18:44 18:44 RBC 3.62 L (3.80-5.40) m/uL MCV 100.1 H (80.0-100.0) fL MCH 35.4 H (25.0-35.0) pg Plt Count 37 L (150-450) k/uL Lymphocytes # (Manual) (1.0-4.8) k/uL ABG pCO2 (35-45) mmHg ABG pO2 (83-108) mmHg ABG HCO3 (21-25) mmol/L ABG O2 Saturation (94-97) % Sodium 124 L (137-145) mmol/L Chloride 93 L (98-107) mmol/L Carbon Dioxide 17 L (22-30) mmol/L BUN 29 H (7-17) mg/dL Creatinine 1.50 H (0.52-1.04) mg/dL Glucose 102 H (74-99) mg/dL POC Glucose (mg/dL) (70-110) mg/dL Plasma Lactic Acid Severino 2.8 H* (0.7-2.0) mmol/L Calcium (8.4-10.2) mg/dL Magnesium 0.6 L* (1.6-2.3) mg/dL 05/23/23 05/24/23 05/24/23 Range/Units 18:44 01:30 05:49 RBC 3.49 L (3.80-5.40) m/uL MCV 103.0 H (80.0-100.0) fL MCH (25.0-35.0) pg Plt Count 36 L (150-450) k/uL Lymphocytes # (Manual) 0.36 L (1.0-4.8) k/uL ABG pCO2 29 L (35-45) mmHg ABG pO2 82 L (83-108) mmHg ABG HCO3 20 L (21-25) mmol/L ABG O2 Saturation 97.7 H (94-97) % Sodium (137-145) mmol/L Chloride (98-107) mmol/L Carbon Dioxide (22-30) mmol/L BUN (7-17) mg/dL Creatinine (0.52-1.04) mg/dL Glucose (74-99) mg/dL POC Glucose (mg/dL) (70-110) mg/dL Plasma Lactic Acid Severino 3.0 H* (0.7-2.0) mmol/L Calcium (8.4-10.2) mg/dL Magnesium (1.6-2.3) mg/dL 05/24/23 05/24/23 Range/Units 05:49 11:41 RBC (3.80-5.40) m/uL MCV (80.0-100.0) fL MCH (25.0-35.0) pg Plt Count (150-450) k/uL Lymphocytes # (Manual) (1.0-4.8) k/uL ABG pCO2 (35-45) mmHg ABG pO2 (83-108) mmHg ABG HCO3 (21-25) mmol/L ABG O2 Saturation (94-97) % Sodium 125 L (137-145) mmol/L Chloride 97 L (98-107) mmol/L Carbon Dioxide 14 L (22-30) mmol/L BUN 32 H (7-17) mg/dL Creatinine 1.63 H (0.52-1.04) mg/dL Glucose 127 H (74-99) mg/dL POC Glucose (mg/dL) 140 H (70-110) mg/dL Plasma Lactic Acid Severino (0.7-2.0) mmol/L Calcium 8.2 L (8.4-10.2) mg/dL Magnesium (1.6-2.3) mg/dL Microbiology - Last 24 Hours (Table) 05/23/23 00:30 Urine Culture - Preliminary Urine,Voided Gram Neg Bacilli 05/22/23 23:00 Blood Culture Gram Stain - Preliminary Blood Blood Culture - Preliminary Gram Neg Bacilli 05/22/23 22:45 Blood Culture Gram Stain - Preliminary Blood Blood Culture - Preliminary Gram Neg Bacilli Assessment and Plan (1) Gram-negative bacteremia Current Visit: Yes Status: Acute Code(s): R78.81 - BACTEREMIA SNOMED Code(s): 731643254137 (2) Urinary tract infection Current Visit: Yes Status: Acute Code(s): N39.0 - URINARY TRACT INFECTION, SITE NOT SPECIFIED SNOMED Code(s): 60865326 Plan: 1patient presented to the hospital with sepsis in this patient who did have a elevated white count and tachycardia elevated lactic acid has been complaining of right flank pain positive UA likely complicated UTI 2blood culture positive for gram-negative bacilli source is likely urinary 3- ultrasound of the kidney and bladder did not show any obstructive uropathy 4patient to continue with Rocephin 2 g daily while waiting for the cultures to finalize Dictation was produced using [employer] dictation software. please excuse any grammatical, word or spelling errors. Time with Patient: Less than 30
--- NOTE | 2023-05-24 15:36 | P.PN ---
Subjective Progress Note Date: 05/24/23 62-year-old female presenting with chief complaint of right flank pain. Pain is been ongoing for about 4 days. Patient states that she has been having urgency and frequency as well as hematuria for about 5 days but has been unable to get in with her doctor. She admits to nausea and vomiting as well as fatigue. No chest pain or difficulty breathing. Admits to chills unsure if she has had a fever. Patient is also a daily drinker, last drink was earlier today. WBC 11.9. Sodium 120. BUN 23 and creatinine 1.97, this is increased from baseline. Lactic acid 7.6, likely due to dehydration. Total bilirubin 1.4 and AST 59 ALT 61, which correlates his CT findings of cirrhosis. Urine is positive for UTI. CT shows inflammatory changes around the right kidney, it is possible the patient has recently passed a kidney stone but no obstructing uropathy seen on scan. Patient was given 4 L fluid bolus and started on maintenance rate of 130 miles per hour. She is given IV Rocephin. Patient will be admitted for UTI, acute kidney injury, dehydration, and cirrhosis. Yesterday evening the patient developed hypertension, tachycardia, hallucinations and a CIWA scale score greater than 15. The patient was transferred to the intensive care unit and initiated on Precedex infusion. Patient went into atrial fibrillation with a rapid ventricular response and required Cardizem drip and hypotension with norepinephrine briefly. Both drips are currently on pause. White count 7.2. Hemoglobin 12.0. Platelets 36,000. Arterial blood gases revealed a PaO2 of 82, pCO2 29 and a pH of 7.44 and 44% FiO2. Sodium 125. Potassium 3.9. Bicarb 14. BUN 32. Creatinine 1.63. Glucose 127. She is on antibiotics in the form of ceftriaxone. Objective - Vital Signs Vital signs: Vital Signs Temp 98.1 F 05/24/23 04:00 Pulse 96 05/24/23 10:00 Resp 30 H 05/24/23 10:00 BP 93/58 05/24/23 10:00 Pulse Ox 96 05/24/23 10:00 FiO2 Intake & Output 05/23/23 05/24/23 05/24/23 18:59 06:59 18:59 Intake Total 30 3383.093 347.512 Output Total 200 50 20 Balance -170 3333.093 327.512 Weight 94.3 kg Intake: IV 3030 330 Lactated Ringers 1,000 ml 1000 @ 999 mls/hr IV .Q1H1M [facility] Rx#:[id number] Magnesium Sulfate-D5w Pmx 400 100 1 gm In Dextrose/Water 1 100ml.bag @ 100 mls/hr IVPB Q1H [facility]UL Rx#: [id number] Potassium Chloride 10 meq 200 100 In Water For Injection 1 100ml.bag @ 100 mls/hr IVPB Q1H [facility] Rx#: [id number] Sodium Chloride 0.9% 1, 1430 130 000 ml @ 130 mls/hr IV . Q7H42M [facility] Rx#:[id number] Intake, IV Titration 353.093 17.512 Amount Dexmedetomidine/0.9% NaCl 120.500 12.587 (Pmx) 400 mcg In Empty Bag 1 bag @ 0.2 MCG/KG/HR 4.082 mls/hr IV .Q24H [facility] Rx#:[id number] Diltiazem 125 mg In 31.667 Sodium Chloride 0.9% 100 ml @ 10 MG/HR 10 mls/hr IV .[id number] [facility] Rx#: [id number] Norepinephrine 4 mg In 70.926 4.925 Sodium Chloride 0.9% 250 ml @ 0.03 MCG/KG/MIN 9. 332 mls/hr IV .Q24H [facility] Rx#:[id number] Sodium Chloride 0.9% 1, 130 000 ml @ 130 mls/hr IV . Q7H42M [facility] Rx#:[id number] Oral 30 Output: Urine 200 50 20 Other: Voiding Method Incontinent External Catheter External Catheter External Catheter # Voids 1 - Exam GENERAL EXAM: Arousable, 62-year-old female, on 2 L nasal cannula, comfortable in no apparent distress. HEAD: Normocephalic. THROAT: No erythema or exudates. NECK: No masses, no JVD. CHEST: No chest wall deformity. LUNGS: Equal air entry with no crackles, wheeze, rhonchi or dullness. CVS: S1 and S2 normal with no audible murmur, regular rhythm. ABDOMEN: No hepatosplenomegaly, normal bowel sounds, no guarding or rigidity. SKIN: No rashes CENTRAL NERVOUS SYSTEM: No focal deficits, tone is normal in all 4 extremities. EXTREMITIES: There is no peripheral edema. No clubbing, no cyanosis. Peripheral pulses are intact. - Labs CBC & Chem 7: 05/24/23 05:49 05/24/23 05:49 Labs: Abnormal Lab Results - Last 24 Hours (Table) 05/23/23 05/23/23 05/23/23 Range/Units 11:31 11:35 15:35 RBC (3.80-5.40) m/uL MCV (80.0-100.0) fL MCH (25.0-35.0) pg Plt Count (150-450) k/uL Lymphocytes # (Manual) (1.0-4.8) k/uL ABG pCO2 (35-45) mmHg ABG pO2 (83-108) mmHg ABG HCO3 (21-25) mmol/L ABG O2 Saturation (94-97) % Sodium (137-145) mmol/L Chloride (98-107) mmol/L Carbon Dioxide (22-30) mmol/L BUN (7-17) mg/dL Creatinine (0.52-1.04) mg/dL Glucose (74-99) mg/dL POC Glucose (mg/dL) 129 H (70-110) mg/dL Plasma Lactic Acid Severino 3.8 H* 2.8 H* (0.7-2.0) mmol/L Calcium (8.4-10.2) mg/dL Magnesium (1.6-2.3) mg/dL 05/23/23 05/23/23 05/23/23 Range/Units 18:44 18:44 18:44 RBC 3.62 L (3.80-5.40) m/uL MCV 100.1 H (80.0-100.0) fL MCH 35.4 H (25.0-35.0) pg Plt Count 37 L (150-450) k/uL Lymphocytes # (Manual) (1.0-4.8) k/uL ABG pCO2 (35-45) mmHg ABG pO2 (83-108) mmHg ABG HCO3 (21-25) mmol/L ABG O2 Saturation (94-97) % Sodium 124 L (137-145) mmol/L Chloride 93 L (98-107) mmol/L Carbon Dioxide 17 L (22-30) mmol/L BUN 29 H (7-17) mg/dL Creatinine 1.50 H (0.52-1.04) mg/dL Glucose 102 H (74-99) mg/dL POC Glucose (mg/dL) (70-110) mg/dL Plasma Lactic Acid Severino 3.0 H* (0.7-2.0) mmol/L Calcium (8.4-10.2) mg/dL Magnesium 0.6 L* (1.6-2.3) mg/dL 05/24/23 05/24/23 05/24/23 Range/Units 01:30 05:49 05:49 RBC 3.49 L (3.80-5.40) m/uL MCV 103.0 H (80.0-100.0) fL MCH (25.0-35.0) pg Plt Count 36 L (150-450) k/uL Lymphocytes # (Manual) 0.36 L (1.0-4.8) k/uL ABG pCO2 29 L (35-45) mmHg ABG pO2 82 L (83-108) mmHg ABG HCO3 20 L (21-25) mmol/L ABG O2 Saturation 97.7 H (94-97) % Sodium 125 L (137-145) mmol/L Chloride 97 L (98-107) mmol/L Carbon Dioxide 14 L (22-30) mmol/L BUN 32 H (7-17) mg/dL Creatinine 1.63 H (0.52-1.04) mg/dL Glucose 127 H (74-99) mg/dL POC Glucose (mg/dL) (70-110) mg/dL Plasma Lactic Acid Severino (0.7-2.0) mmol/L Calcium 8.2 L (8.4-10.2) mg/dL Magnesium (1.6-2.3) mg/dL Microbiology - Last 24 Hours (Table) 05/22/23 23:00 Blood Culture Gram Stain - Preliminary Blood Blood Culture - Preliminary Gram Neg Bacilli 05/22/23 22:45 Blood Culture Gram Stain - Preliminary Blood Blood Culture - Preliminary Gram Neg Bacilli Assessment and Plan Assessment: 1. UTI; patient has been placed on IV Rocephin 2 g every 6 hours - Urine culture obtained; final antibiotic recommendations pending culture results 2. Bacteremia; blood cultures are positive for gram-negative bacilli; patient is currently on Rocephin 2 g IV daily; we will consult 2. Acute renal injury/dehydration; likely related to nausea and vomiting; patient remains on IV fluids; monitor strict ELY's, daily weights, renal function and electrolytes; avoid nephrotoxins and hypotension; we will hold Lasix and Hyzaar; initiate therapy once renal function is improved 3. Hyponatremia; likely related to vomiting; patient has been placed for normal saline at a rate of 130 mL an hour; we will monitor electrolytes closely and make further recommendations as needed 4. Lactic acidosis; likely multifactorial; related to infection/dehydration; patient has been placed many fluids; lactic acid is trending down 5. Transaminitis; history of liver cirrhosis; we will monitor liver enzymes closely; we will initiate further workup if liver enzymes continue to trend up 6. Hypertension; resume home dose of metoprolol 25 mg twice a day ; hold Hyzaar given acute renal injury 7. Diabetes mellitus type 2; metformin 500 mg twice a day; monitor Accu-Cheks every 6 hours as with insulin sliding scale 8. Depression; Cymbalta 60 mg daily at bedtime; trazodone 100 mg by mouth daily at bedtime
[2023-05-24] MEDS: MORPHINE SULFATE 4 MG/ML SYRINGE IV PRN ×2 (16:16→20:16)
[2023-05-24] MEDS: DULoxetine HCL 60 MG CAPSULE.DR PO SCH (19:59)
[2023-05-24] MEDS: traZODone HCL 100 MG TAB PO SCH (19:59)
[2023-05-25] MEDS: SODIUM CHLORIDE 0.9% 1,000 ML IV SCH ×3 (01:43→17:56)
[2023-05-25] MEDS: MORPHINE SULFATE 4 MG/ML SYRINGE IV PRN ×2 (03:10→18:26)
[2023-05-25 04:56] LABS: African American GFR (CKD) 55 (>60 ml/min/1.73 sqM); Anion Gap 10 mmol/L; Blood Urea Nitrogen 32 mg/dL (7-17); Calcium 8.1 mg/dL (8.4-10.2); Carbon Dioxide 16 mmol/L (22-30); Chloride 103 mmol/L (98-107); Glucose 98 mg/dL (74-99); Non-African American GFR(CKD) 47 (>60 ml/min/1.73 sqM); Sodium 129 mmol/L (137-145)
[2023-05-25 04:59] LABS: Magnesium 1.6 mg/dL (1.6-2.3); Potassium 4.4 mmol/L (3.5-5.1)
[2023-05-25] MEDS: MAGNESIUM SULFATE-D5W PMX 1 GM in DEXTROSE/WATER 1 100ML.BAG IVPB SCH ×2 (05:18→06:24)
[2023-05-25 06:05] LABS: HCT 32.9 % (34.0-46.0); HGB 11.1 gm/dL (11.4-16.0); MCH 34.3 pg (25.0-35.0); MCHC 33.6 g/dL (31.0-37.0); MCV 101.9 fL (80.0-100.0); Macrocytosis Slight; Mean Platelet Volume 11.3; RBC 3.23 m/uL (3.80-5.40); RDW 13.4 % (11.5-15.5)
[2023-05-25 06:21] LABS: Band Neutrophils % 15 %; Eosinophils # (M) 0.04 k/uL (0-0.7); Lymphocytes # (M) 0.36 k/uL (1.0-4.8); Neutrophils % (M) 60 %; Nucleated Red Blood Cells 0 /100 WBC (0-0); Platelet Count 32 k/uL (150-450); Total Cells Counted 200
[2023-05-25 06:22] LABS: Toxic Granulation Present
--- NOTE | 2023-05-25 08:47 | P.PN ---
Subjective Progress Note Date: 05/25/23 This is a 62-year-old female patient who presented to the emergency room on 05/22/2023 with complaints of right flank pain. She had a four-day history of ongoing urgency and frequency and hematuria but was unable to see her primary doctor. She was having issues with nausea and vomiting as well. She has a history of diabetes mellitus, hypertension, diabetic neuropathy, CVA, alcoholic seizures, kidney stones chronic and ongoing tobacco dependence, marijuana use, daily heavy alcohol use admitting to a fifth of whiskey a day. Her last drink was earlier in the day on the . Computed tomography scan of the abdomen and pelvis revealed inflammation changes around the right kidney without evidence of obstructing calculus. Mild dilatation of the collecting system. Correlate for recently passed renal calculus. Nodular liver contour with caudate lobe hypertrophy findings compatible with cirrhosis. Ultrasound of the kidneys and bladder revealed no evidence of obstructive uropathy. She was admitted to the regular medical floor with urinary tract infection, acute kidney injury and dehydration. At approximately 6:00 last evening the patient developed hypertension, tachycardia, hallucinations and a CIWA scale score greater than 15. The patient was transferred to the intensive care unit and initiated on Precedex infusion. She is seen today in consultation. She is arousable, oriented, calm and cooperative. Remains on Precedex at 0.3 mcg/kg per hour. She has normal saline and 130 ML's per hour. She had issues with atrial fibrillation with a rapid ventricular response and required Cardizem drip and hypotension with norepinephrine briefly. Both drips are currently on pause. White count 7.2. Hemoglobin 12.0. Platelets 36,000. Arterial blood gases a PaO2 of 82, pCO2 29 and a pH of 7.44 and 44% FiO2. Sodium 125. Potassium 3.9. Bicarb 14. BUN 32. Creatinine 1.63. Glucose 127. She is on antibiotics in the form of ceftriaxone. On today's evaluation of 05/25/2023, the patient is being seen for a follow-up. This is a very pleasant 60-year-old female patient, who presented to us with a urine checked infection and sepsis. She is currently septic with a gram-negative bacillus in her blood and the blood cultures have confirmed the finding. CAT scan of the abdomen and pelvis that was done on 05/22/2023 showed inflammatory changes in the right kidney without evidence of any obstructive calculus. There is also mild dilatation of the collecting duct indicating pos sibility of a passed renal calculus. She also has underlying liver cirrhosis as the patient is an alcoholic. She has mild cardiomegaly. She has moderate atherosclerotic changes and a complex renal cysts. Ultrasound of the abdomen was also done that showed no evidence of any hydronephrosis. For now, the patient is on IV fluids and she is on 0.9 at 130 mL an hour. She has been adequately resuscitated. She is on no pressors at this point in time. Antibiotic coverage is with IV Rocephin and she is receiving 2 g every 24 hours At the same time, the patient is encephalopathic and she is interviewed and. She is alert and oriented 1. The patient is off Precedex for now. She is receiving Haldol and Ativan and morphine as needed. She is not awake enough to have her breakfast at this point in time. She is quite lethargic and somnolent. She is arousable however. She is moving all 4 extremities. She has a congested cough. The echoes at 4 with a hemoglobin of 11.1 and a platelet count is chronically low at 32 with some interval drop in the platelet count. No evidence of any bleeding. Had acute kidney injury is also improving. Creatinine is down to 1.23 from as high as 1.9 with a BUN of 32. Serum bicarb is at 16 with a sodium level of 129 and a potassium level of 4.4. Her last echocardiogram was on 03/11/2023 and that showed an ejection fraction of 60-65%. She has multiple scratches in her lower extremities and she states that she has 18 cats at home Objective - Vital Signs Vital signs: Vital Signs Temp 99.7 F H 05/25/23 04:00 Pulse 86 05/25/23 07:00 Resp 12 05/25/23 07:00 BP 111/66 05/25/23 07:00 Pulse Ox 95 05/25/23 07:00 FiO2 Intake & Output 05/24/23 05/25/23 05/25/23 18:59 06:59 18:59 Intake Total 2877.512 1560 130 Output Total 140 850 0 Balance 2737.512 710 130 Weight 97.9 kg Intake: IV 2860 1560 130 Lactated Ringers 1,000 ml 1000 @ 999 mls/hr IV .Q1H1M [facility] Rx#:[id number] Magnesium Sulfate-D5w Pmx 100 1 gm In Dextrose/Water 1 100ml.bag @ 100 mls/hr IVPB Q1H [facility] Rx#: [id number] Potassium Chloride 10 meq 200 In Water For Injection 1 100ml.bag @ 100 mls/hr IVPB Q1H [facility] Rx#: [id number] Sodium Chloride 0.9% 1, 1560 1560 130 000 ml @ 130 mls/hr IV . Q7H42M [facility] Rx#:[id number] Intake, IV Titration 17.512 Amount Dexmedetomidine/0.9% NaCl 12.587 (Pmx) 400 mcg In Empty Bag 1 bag @ 0.2 MCG/KG/HR 4.082 mls/hr IV .Q24H [facility] Rx#:[id number] Norepinephrine 4 mg In 4.925 Sodium Chloride 0.9% 250 ml @ 0.03 MCG/KG/MIN 9. 332 mls/hr IV .Q24H [facility] Rx#:[id number] Output: Urine 140 850 0 Other: Voiding Method External Catheter External Catheter # Voids 1 - Exam GENERAL EXAM: Arousable, 62-year-old female, on 2 L nasal cannula, comfortable in no apparent distress. Encephalopathic, lethargic yet arousable. HEAD: Normocephalic. EYES: Normal reaction of pupils, equal size. NOSE: Clear with pink turbinates. THROAT: No erythema or exudates. NECK: No masses, no JVD. CHEST: No chest wall deformity. LUNGS: Equal air entry with no crackles, wheeze, rhonchi or dullness. CVS: S1 and S2 normal with no audible murmur, regular rhythm. ABDOMEN: No hepatosplenomegaly, normal bowel sounds, no guarding or rigidity. SPINE: No scoliosis or deformity SKIN: No rashes CENTRAL NERVOUS SYSTEM: No focal deficits, tone is normal in all 4 extremities. EXTREMITIES: There is no peripheral edema. No clubbing, no cyanosis. Peripheral pulses are intact. - Labs CBC & Chem 7: 05/25/23 05:26 05/25/23 03:58 Labs: Abnormal Lab Results - Last 24 Hours (Table) 05/24/23 05/25/23 05/25/23 Range/Units 11:41 03:58 05:26 RBC 3.23 L (3.80-5.40) m/uL Hgb 11.1 L (11.4-16.0) gm/dL Hct 32.9 L (34.0-46.0) % MCV 101.9 H (80.0-100.0) fL Plt Count 32 L (150-450) k/uL Lymphocytes # (Manual) 0.36 L (1.0-4.8) k/uL Sodium 129 L (137-145) mmol/L Carbon Dioxide 16 L (22-30) mmol/L BUN 32 H (7-17) mg/dL Creatinine 1.23 H (0.52-1.04) mg/dL POC Glucose (mg/dL) 140 H (70-110) mg/dL Calcium 8.1 L (8.4-10.2) mg/dL Microbiology - Last 24 Hours (Table) 05/23/23 00:30 Urine Culture - Preliminary Urine,Voided Gram Neg Bacilli 05/22/23 23:00 Blood Culture Gram Stain - Preliminary Blood Blood Culture - Preliminary Gram Neg Bacilli 05/22/23 22:45 Blood Culture Gram Stain - Preliminary Blood Blood Culture - Preliminary Gram Neg Bacilli Assessment and Plan Plan: Acute sepsis secondary to a UTI/gram-negative bacillus in her urine and blood. Hemodynamically stable on IV Rocephin. No evidence of any hydronephrosis. Suspected right pyelonephritis. Encephalopathy, multifactorial. Part related to her underlying sepsis and is same time the patient is likely withdrawing from alcoholism as the patient has been drinking a fifth of whiskey every day. Acute alcohol withdrawal syndrome requiring Precedex infusion and ICU management. Patient admits to one fifth of whiskey a day Hyponatremia secondary to above Cirrhosis secondary to above Acute kidney injury secondary to dehydration, improving Non-anion gap metabolic acidosis Chronic thrombocytopenia, likely alcohol induced versus chronic liver disease. Hypertension Diabetes mellitus Diabetic neuropathy History of CVA/TIA History of seizure secondary to alcohol withdrawal History of anxiety/depression History of marijuana use Chronic and ongoing tobacco dependence Plan Continue normal saline at the rate of 130 mL an hour Continue IV Rocephin Check ammonia level Monitor mental status and use Precedex if needed for any significant agitation. For now, the patient is on a combination of Ativan and Haldol Monitor renal function and platelet count Renal function is improving Keep the patient nothing by mouth for now Titrate FiO2 to maintain saturation above 90% Perform a baseline chest x-ray Check a urine drug screen We will continue to monitor in the ICU
[2023-05-25] MEDS: METOPROLOL TARTRATE 25 MG TAB PO SCH (09:00)
--- NOTE | 2023-05-25 09:07 | P.PN ---
Subjective Progress Note Date: 05/25/23 Patient is a 60-year-old female currently admitted to the hospital with urinary tract infection. She subsequently underwent EtOH withdrawal and developed atrial fibrillation with RVR. She was started on Cardizem IV and ultimately converted back to sinus rhythm. Patient was interviewed and examined resting comfortably in bed. GENERAL: Well-appearing, well-nourished and in no acute distress. NECK: Supple without JVD or thyromegaly. LUNGS: Breath sounds are coarse to auscultation bilaterally. Respiration equal and unlabored. Bilateral rhonchi. HEART: Regular rate and rhythm without murmurs, rubs or gallops. S1 and S2 heard. EXTREMITIES: Normal range of motion, mild edema. No clubbing or cyanosis. Peripheral pulses intact and strong. TELEMETRY: Sinus rhythm LABS: WBC 4.0, hemoglobin 11.1, hematocrit 32.9, platelet 32, sodium 129, potassium 4.4, BUN 32, creatinine 1.23, magnesium 1.6 IMPRESSION: A. fib with RVR EtOH withdrawal Thrombocytopenia Urinary tract infection PLAN: Supplement electrolytes per protocol Continue oral beta blockers Not a candidate for anticoagulation due to thrombocytopenia Further recommendations based upon clinical course I am dictating on behalf of Dr Julius Allred's history/physical and assessment/plan. Objective - Vital Signs Vital signs: Vital Signs Temp 99.7 F H 05/25/23 04:00 Pulse 86 05/25/23 07:00 Resp 12 05/25/23 07:00 BP 111/66 05/25/23 07:00 Pulse Ox 95 05/25/23 07:00 FiO2 Intake & Output 05/24/23 05/25/23 05/25/23 18:59 06:59 18:59 Intake Total 2877.512 1560 130 Output Total 140 850 0 Balance 2737.512 710 130 Weight 97.9 kg Intake: IV 2860 1560 130 Lactated Ringers 1,000 ml 1000 @ 999 mls/hr IV .Q1H1M [facility] Rx#:[id number] Magnesium Sulfate-D5w Pmx 100 1 gm In Dextrose/Water 1 100ml.bag @ 100 mls/hr IVPB Q1H [facility] Rx#: [id number] Potassium Chloride 10 meq 200 In Water For Injection 1 100ml.bag @ 100 mls/hr IVPB Q1H [facility] Rx#: [id number] Sodium Chloride 0.9% 1, 1560 1560 130 000 ml @ 130 mls/hr IV . Q7H42M [facility] Rx#:[id number] Intake, IV Titration 17.512 Amount Dexmedetomidine/0.9% NaCl 12.587 (Pmx) 400 mcg In Empty Bag 1 bag @ 0.2 MCG/KG/HR 4.082 mls/hr IV .Q24H [facility] Rx#:[id number] Norepinephrine 4 mg In 4.925 Sodium Chloride 0.9% 250 ml @ 0.03 MCG/KG/MIN 9. 332 mls/hr IV .Q24H [facility] Rx#:[id number] Output: Urine 140 850 0 Other: Voiding Method External Catheter External Catheter # Voids 1 - Labs CBC & Chem 7: 05/25/23 05:26 05/25/23 03:58 Labs: Abnormal Lab Results - Last 24 Hours (Table) 05/24/23 05/25/23 05/25/23 Range/Units 11:41 03:58 05:26 RBC 3.23 L (3.80-5.40) m/uL Hgb 11.1 L (11.4-16.0) gm/dL Hct 32.9 L (34.0-46.0) % MCV 101.9 H (80.0-100.0) fL Plt Count 32 L (150-450) k/uL Lymphocytes # (Manual) 0.36 L (1.0-4.8) k/uL Sodium 129 L (137-145) mmol/L Carbon Dioxide 16 L (22-30) mmol/L BUN 32 H (7-17) mg/dL Creatinine 1.23 H (0.52-1.04) mg/dL POC Glucose (mg/dL) 140 H (70-110) mg/dL Calcium 8.1 L (8.4-10.2) mg/dL Microbiology - Last 24 Hours (Table) 05/23/23 00:30 Urine Culture - Preliminary Urine,Voided Gram Neg Bacilli 05/22/23 23:00 Blood Culture Gram Stain - Preliminary Blood Blood Culture - Preliminary Gram Neg Bacilli 05/22/23 22:45 Blood Culture Gram Stain - Preliminary Blood Blood Culture - Preliminary Gram Neg Bacilli
[2023-05-25] MEDS: PANTOPRAZOLE 40 MG/10 ML VIAL IV SCH (10:07)
[2023-05-25] MEDS: THIAMINE 100 MG TAB PO SCH (10:08)
[2023-05-25] MEDS: CALCIUM CARBONATE 500 MG CHEWABLE PO SCH (10:08)
[2023-05-25] MEDS: METOPROLOL TARTRATE 50 MG TAB PO SCH ×2 (10:08→20:03)
[2023-05-25] MEDS: MULTIVITAMINS, THERA 1 EACH TAB PO SCH (10:08)
--- NOTE | 2023-05-25 10:24 | CA ---
Transthoracic Echo Report Name: Anupama Howell Age: 62 Gender: F : 1960 Exam Date: 05/25/2023 07:34 Exam Location: [facility] [facility] Ht (in): 66 Wt (lb): 207 Ordering Physician: Olvin Perez MD ([id number]) Attending/Referring Phys: Ana BANUELOS Manager Transplant Reyna Snow RDCS Procedure CPT: Indications: afib Cardiac Hx: Technical Quality: Good Contrast 1: Total Dose (mL): Contrast 2: Total Dose (mL): MEASUREMENTS (Male / Female) Normal Values 2D ECHO LV Diastolic Diameter PLAX 4.4 cm 4.2 - 5.9 / 3.9 - 5.3 cm LV Systolic Diameter PLAX 3.0 cm IVS Diastolic Thickness 1.2 cm 0.6 - 1.0 / 0.6 - 0.9 cm LVPW Diastolic Thickness 1.3 cm 0.6 - 1.0 / 0.6 - 0.9 cm LV Relative Wall Thickness 0.6 RV Internal Dim ED PLAX 3.1 cm LA Systolic Diameter LX 4.2 cm 3.0 - 4.0 / 2.7 - 3.8 cm LV Diastolic Volume MOD 4C 93.2 cm??? LV Systolic Volume MOD 4C 41.1 cm??? LV Ejection Fraction MOD 4C 55.9 % LV Diastolic Length 4C 8.0 cm LV Systolic Length 4C 7.0 cm LV Diastolic Volume MOD 2C 67.7 cm??? LV Systolic Volume MOD 2C 37.7 cm??? LV Ejection Fraction MOD 2C 44.4 % LV Diastolic Length 2C 8.0 cm LV Systolic Length 2C 6.8 cm LA Volume 51.9 cm??? 18 - 58 / 22 - 52 cm??? LA Volume Index 24.4 cm???/m??? 16 - 28 cm???/m??? M-MODE Aortic Root Diameter MM 3.4 cm MV E Point Septal Separation 1.2 cm AV Cusp Separation MM 1.9 cm DOPPLER AV Peak Velocity 166.7 cm/s AV Peak Gradient 11.1 mmHg MV Area PHT 3.3 cm??? Mitral E Point Velocity 135.8 cm/s Mitral A Point Velocity 101.6 cm/s Mitral E to A Ratio 1.3 MV Deceleration Time 227.1 ms MV E' Velocity 6.0 cm/s Mitral E to MV E' Ratio 22.8 TR Peak Velocity 226.4 cm/s TR Peak Gradient 20.5 mmHg Right Ventricular Systolic Press 35.3 mmHg FINDINGS Left Ventricle Left ventricular ejection fraction is estimated at 55-60 %. Left ventricular cavity size normal. Mildly increased septal wall thickness. Moderately increased posterior wall thickness. Right Ventricle Normal right ventricular size. Mild pulmonary hypertension. Right Atrium Normal right atrial size. Left Atrium Mildly increased left atrial diameter. Mitral Valve Mitral valve thickened. Mild mitral annular calcification. Trace to mild mitral regurgitation. Aortic Valve Trileaflet aortic valve. No aortic valve stenosis or regurgitation. Tricuspid Valve Structurally normal tricuspid valve. Mild tricuspid regurgitation. Pulmonic Valve Structurally normal pulmonic valve. No pulmonic regurgitation. Pericardium No pericardial effusion. Aorta Normal size aortic root and proximal ascending aorta. CONCLUSIONS Normal LV size and systolic function. Mild concentric LVH. Mild mitral and tricuspid regurgitation no significant pulmonary hypertension. No pericardial Previewed by: Dr. Amber Bourgeois MD (Electronically Signed) Final Date: 25 May 2023 10:23
--- NOTE | 2023-05-25 11:35 | P.PN ---
Subjective Progress Note Date: 05/25/23 Principal diagnosis: E coli pyelonephritis and bacteremia Patient is a 62 year old female with a past medical history significant for diabetes mellitus hypertension MS, seizure disorder presenting to the hospital for evaluation of right flank pain, patient has been diagnosed with right-sided pyelonephritis and did have E. coli bacteremia. Patient has been transferred to the ICU because of DTs On today's evaluation that is 05/25/2023, the patient remains to be afebrile the patient is breathing comfortably on the 2 L nasal cannula oxygen patient slightly more awake than yesterday however still not good historian no vomiting diarrhea or any other changes reported by the nursing staff. Patient white count of 4.0, creatinine 1.23, abdominal ultrasound evidence of o bstructive uropathy blood culture with gram-negative bacilli urine culture with E. coli that is sensitive pathogen Objective - Vital Signs Vital signs: Vital Signs Temp 98.3 F 05/25/23 08:00 Pulse 92 05/25/23 11:00 Resp 15 05/25/23 11:00 BP 130/70 05/25/23 11:00 Pulse Ox 98 05/25/23 11:00 FiO2 Intake & Output 05/24/23 05/25/23 05/25/23 18:59 06:59 18:59 Intake Total 2877.512 1560 1050 Output Total 140 850 0 Balance 2737.512 149 9562 Weight 97.9 kg Intake: IV 2860 1560 650 Lactated Ringers 1,000 ml 1000 @ 999 mls/hr IV .Q1H1M [facility] Rx#:[id number] Magnesium Sulfate-D5w Pmx 100 1 gm In Dextrose/Water 1 100ml.bag @ 100 mls/hr IVPB Q1H [facility] Rx#: [id number] Potassium Chloride 10 meq 200 In Water For Injection 1 100ml.bag @ 100 mls/hr IVPB Q1H [facility] Rx#: [id number] Sodium Chloride 0.9% 1, 1560 1560 650 000 ml @ 130 mls/hr IV . Q7H42M [facility] Rx#:[id number] Intake, IV Titration 17.512 Amount Dexmedetomidine/0.9% NaCl 12.587 (Pmx) 400 mcg In Empty Bag 1 bag @ 0.2 MCG/KG/HR 4.082 mls/hr IV .Q24H [facility] Rx#:[id number] Norepinephrine 4 mg In 4.925 Sodium Chloride 0.9% 250 ml @ 0.03 MCG/KG/MIN 9. 332 mls/hr IV .Q24H [facility] Rx#:[id number] Oral 400 Output: Urine 140 850 0 Other: Voiding Method External Catheter External Catheter External Catheter # Voids 1 - Exam GENERAL DESCRIPTION: A middle-aged female lying in bed in no distress RESPIRATORY SYSTEM: Unlabored breathing , decreased breath sound at the bases HEART: S1 S2 regular rate and rhythm , ABDOMEN: Soft , no tenderness EXTREMITIES: No edema feet - Labs CBC & Chem 7: 05/25/23 05:26 05/25/23 03:58 Labs: Abnormal Lab Results - Last 24 Hours (Table) 05/24/23 05/24/23 05/25/23 Range/Units 05:49 11:41 03:58 RBC (3.80-5.40) m/uL Hgb (11.4-16.0) gm/dL Hct (34.0-46.0) % MCV (80.0-100.0) fL Plt Count (150-450) k/uL Lymphocytes # (Manual) (1.0-4.8) k/uL Sodium 129 L (137-145) mmol/L Carbon Dioxide 16 L (22-30) mmol/L BUN 32 H (7-17) mg/dL Creatinine 1.23 H (0.52-1.04) mg/dL POC Glucose (mg/dL) 140 H (70-110) mg/dL Calcium 8.1 L (8.4-10.2) mg/dL Procalcitonin 29.60 H (0.02-0.09) ng/mL 05/25/23 Range/Units 05:26 RBC 3.23 L (3.80-5.40) m/uL Hgb 11.1 L (11.4-16.0) gm/dL Hct 32.9 L (34.0-46.0) % MCV 101.9 H (80.0-100.0) fL Plt Count 32 L (150-450) k/uL Lymphocytes # (Manual) 0.36 L (1.0-4.8) k/uL Sodium (137-145) mmol/L Carbon Dioxide (22-30) mmol/L BUN (7-17) mg/dL Creatinine (0.52-1.04) mg/dL POC Glucose (mg/dL) (70-110) mg/dL Calcium (8.4-10.2) mg/dL Procalcitonin (0.02-0.09) ng/mL Microbiology - Last 24 Hours (Table) 05/23/23 00:30 Urine Culture - Final Urine,Voided Escherichia coli 05/22/23 23:00 Blood Culture Gram Stain - Preliminary Blood Blood Culture - Preliminary Gram Neg Bacilli 05/22/23 22:45 Blood Culture Gram Stain - Preliminary Blood Blood Culture - Preliminary Gram Neg Bacilli Assessment and Plan (1) Gram-negative bacteremia Current Visit: Yes Status: Acute Code(s): R78.81 - BACTEREMIA SNOMED Code(s): 160331048432 (2) Urinary tract infection Current Visit: Yes Status: Acute Code(s): N39.0 - URINARY TRACT INFECTION, SITE NOT SPECIFIED SNOMED Code(s): 77689109 Plan: 1patient presented to the hospital with sepsis in this patient who did have a elevated white count and tachycardia elevated lactic acid has been complaining of right flank pain positive UA likely complicated UTI 2blood culture positive for gram-negative bacilli source is likely urinary 3- ultrasound of the kidney and bladder did not show any obstructive uropathy 4patient did have minimal clinical improvement and will continue with Rocephin 2 g daily and monitor clinical course closely Dictation was produced using [employer] dictation software. please excuse any grammatical, word or spelling errors. Time with Patient: Less than 30
[2023-05-25] MEDS: metFORMIN 500 MG TAB PO SCH ×2 (12:56→17:57)
[2023-05-25] MEDS: DILTIAZEM 125 MG in SODIUM CHLORIDE 0.9% 100 ML IV SCH (12:56)
[2023-05-25] MEDS ORDERED: DEXTROSE 50% SYRINGE 50 ML IVP PRN ×2 (14:10)
--- NOTE | 2023-05-25 14:13 | P.PN ---
Subjective Progress Note Date: 05/25/23 This is 62-year-old female admitted with acute sepsis secondary to acute complicated UTI with E. coli and gram-negative bacillus bacteremia, alcohol withdrawals in a patient with known alcohol abuse, liver disease, chronic thrombocytopenia, acute renal failure, hyponatremia and multiple other medical issues. Maintained on CIWA protocol, Haldol and morphine. Somnolent, NPO. Maintained on ceftriaxone as per ID. pro calcitonin 29.6. Gentle IV fluid hydration, Renal function improving. T-max 99.8. Maintaining O2 sats in the high 90s on 2 L nasal cannula. Magnesium 1.6. Blood sugars controlled. Objective - Vital Signs Vital signs: Vital Signs Temp 98.4 F 05/25/23 12:00 Pulse 84 05/25/23 13:00 Resp 19 05/25/23 13:00 BP 105/88 05/25/23 13:00 Pulse Ox 98 05/25/23 13:00 FiO2 Intake & Output 05/24/23 05/25/23 05/25/23 18:59 06:59 18:59 Intake Total 2877.512 1560 1510 Output Total 140 850 200 Balance 2737.425 962 2075 Weight 97.9 kg Intake: IV 2860 1560 910 Lactated Ringers 1,000 ml 1000 @ 999 mls/hr IV .Q1H1M [facility] Rx#:[id number] Magnesium Sulfate-D5w Pmx 100 1 gm In Dextrose/Water 1 100ml.bag @ 100 mls/hr IVPB Q1H [facility] Rx#: [id number] Potassium Chloride 10 meq 200 In Water For Injection 1 100ml.bag @ 100 mls/hr IVPB Q1H [facility] Rx#: [id number] Sodium Chloride 0.9% 1, 1560 1560 910 000 ml @ 130 mls/hr IV . Q7H42M [facility] Rx#:[id number] Intake, IV Titration 17.512 Amount Dexmedetomidine/0.9% NaCl 12.587 (Pmx) 400 mcg In Empty Bag 1 bag @ 0.2 MCG/KG/HR 4.082 mls/hr IV .Q24H [facility] Rx#:[id number] Norepinephrine 4 mg In 4.925 Sodium Chloride 0.9% 250 ml @ 0.03 MCG/KG/MIN 9. 332 mls/hr IV .Q24H [facility] Rx#:[id number] Oral 600 Output: Urine 140 850 200 Other: Voiding Method External Catheter External Catheter External Catheter # Voids 1 - Exam GENERAL EXAM: Lethargic, 62-year-old female, on 2 L nasal cannula, comfortable in no apparent distress. HEAD: Normocephalic. Pupils normal. NECK: Supple, no JVD. LUNGS: Unlabored, Equal air entry, scattered coarse rhonchi throughout, fine expiratory wheezing CVS: S1 and S2 normal with no audible murmur, regular rhythm. ABDOMEN: Soft, No hepatosplenomegaly, normal bowel sounds, no guarding or rigidity. SKIN: No rashes, multiple scratches on extremities NERVOUS SYSTEM: Limited, unable to assess at this time, alert and oriented 1 EXTREMITIES:+1 peripheral edema. No clubbing, no cyanosis. Doppler pulses. Microbiology 05/23/23 00:30 Urine,Voided Urine Culture - Final Escherichia coli 05/22/23 23:00 Blood Blood Culture Gram Stain - Preliminary 05/22/23 23:00 Blood Blood Culture - Preliminary Gram Neg Bacilli 05/22/23 22:45 Blood Blood Culture Gram Stain - Preliminary 05/22/23 22:45 Blood Blood Culture - Preliminary Gram Neg Bacilli - Labs CBC & Chem 7: 05/25/23 05:26 05/25/23 03:58 Labs: Abnormal Lab Results - Last 24 Hours (Table) 05/24/23 05/25/23 05/25/23 Range/Units 05:49 03:58 05:26 RBC 3.23 L (3.80-5.40) m/uL Hgb 11.1 L (11.4-16.0) gm/dL Hct 32.9 L (34.0-46.0) % MCV 101.9 H (80.0-100.0) fL Plt Count 32 L (150-450) k/uL Lymphocytes # (Manual) 0.36 L (1.0-4.8) k/uL Sodium 129 L (137-145) mmol/L Carbon Dioxide 16 L (22-30) mmol/L BUN 32 H (7-17) mg/dL Creatinine 1.23 H (0.52-1.04) mg/dL Calcium 8.1 L (8.4-10.2) mg/dL Procalcitonin 29.60 H (0.02-0.09) ng/mL Microbiology - Last 24 Hours (Table) 05/23/23 00:30 Urine Culture - Final Urine,Voided Escherichia coli 05/22/23 23:00 Blood Culture Gram Stain - Preliminary Blood Blood Culture - Preliminary Gram Neg Bacilli 05/22/23 22:45 Blood Culture Gram Stain - Preliminary Blood Blood Culture - Preliminary Gram Neg Bacilli Assessment and Plan Assessment: Acute sepsis secondary to suspected acute complicated UTI with E. coli and gram- negative bacilli bacteremia. Renal ultrasound did not report obstructive uropathy. Acute toxic metabolic encephalopathy secondary to the above as well as alcohol withdrawal Alcohol abuse, acute EtOH withdrawal, on CIWA protocol, status post Precedex. Thrombocytopenia, chronic secondary to the above as well as liver disease Acute renal failure, secondary to dehydration, improving A. fib with RVR, not on anticoagulation at this time secondary to thrombocytopenia Lactic acidosis Hypertension Hyponatremia Liver cirrhosis secondary to the above Diabetes mellitus Diabetic neuropathy History of CVA, TIA History of seizure disorder secondary to alcohol withdrawal History of marijuana use Ongoing nicotine dependence Anxiety, depression Plan:Continue on current medication regime ,monitoring and symptomatic treatment. Maintain IV antibiotics of ceftriaxone as per ID. CIWA protocol. Prognosis guarded given multiple complex medical issues. The impression and plan of care has been dictated as directed. : I performed a history and examination of this patient, discussed the same with the dictator. I agree with the dictator's note ,documented as a scribe. Any additional findings or plans will be noted.
[2023-05-25 14:41] LABS: Glucose,Whole Blood 125 mg/dL (70-110)
[2023-05-25] MEDS: INSULIN ASPART (NovoLOG) 100 UNIT/ML VIAL SQ SCH ×2 (14:42→20:20)
[2023-05-25] MEDS: LORazepam 2 MG/ML INJ IV PRN (19:55)
[2023-05-25] MEDS: DULoxetine HCL 60 MG CAPSULE.DR PO SCH (20:03)
[2023-05-25] MEDS: traZODone HCL 100 MG TAB PO SCH (20:03)
[2023-05-25 20:11] LABS: Glucose,Whole Blood 152 mg/dL (70-110)
[2023-05-25] MEDS: DEXMEDETOMIDINE/0.9% NACL(PMX) 400 MCG in EMPTY BAG 1 BAG IV SCH (20:19)
[2023-05-26] MEDS: DILTIAZEM 125 MG in SODIUM CHLORIDE 0.9% 100 ML IV SCH ×2 (01:39→08:43)
[2023-05-26] MEDS: NOREPINEPHRINE 4 MG in SODIUM CHLORIDE 0.9% 250 ML IV SCH (01:40)
[2023-05-26] MEDS: SODIUM CHLORIDE 0.9% 1,000 ML IV SCH ×2 (01:42→11:03)
[2023-05-26 04:29] LABS: Basophils % (A) 0 %; Eosinophils % (A) 1 %; HCT 36.3 % (34.0-46.0); HGB 12.1 gm/dL (11.4-16.0); Lymphocytes # (A) 0.7 k/uL (1.0-4.8); Lymphocytes % (A) 10 %; MCH 34.5 pg (25.0-35.0); MCHC 33.2 g/dL (31.0-37.0); MCV 103.8 fL (80.0-100.0); Macrocytosis Slight; Mean Platelet Volume 11.7; Monocytes # (A) 0.7 k/uL (0-1.0); Monocytes % (A) 10 %; Neutrophils # (A) 5.1 k/uL (1.3-7.7); Neutrophils % (A) 76 %; RDW 13.2 % (11.5-15.5); WBC 6.8 k/uL (3.8-10.6)
[2023-05-26 04:38] LABS: African American GFR (CKD) 78 (>60 ml/min/1.73 sqM); Anion Gap 12 mmol/L; Blood Urea Nitrogen 25 mg/dL (7-17); Calcium 8.2 mg/dL (8.4-10.2); Carbon Dioxide 16 mmol/L (22-30); Chloride 100 mmol/L (98-107); Glucose 114 mg/dL (74-99); Magnesium 1.7 mg/dL (1.6-2.3); Non-African American GFR(CKD) 68 (>60 ml/min/1.73 sqM); Sodium 128 mmol/L (137-145)
[2023-05-26] MEDS ORDERED: Potassium Replacement Protocol 1 EACH MISC MISCELLANE PRN (05:08)
[2023-05-26] MEDS ORDERED: Magnesium Replacement Protocol 1 EACH MISC MISCELLANE PRN (05:11)
[2023-05-26] MEDS ORDERED: MAGNESIUM SULFATE-D5W PMX 1 GM in DEXTROSE/WATER 1 100ML.BAG IVPB ONE (05:11)
[2023-05-26] MEDS: INSULIN ASPART (NovoLOG) 100 UNIT/ML VIAL SQ SCH ×5 (05:27→21:39)
[2023-05-26] MEDS: POTASSIUM BICARBONATE/CIT AC 20 MEQ TABLET.EFF NG-TUBE SCH ×3 (05:30→08:19)
[2023-05-26 06:15] LABS: Platelet Count 43 k/uL (150-450)
[2023-05-26] MEDS: MORPHINE SULFATE 4 MG/ML SYRINGE IV PRN ×3 (06:27→19:47)
[2023-05-26] MEDS: LORazepam 2 MG/ML INJ IV PRN ×2 (07:17→20:08)
--- NOTE | 2023-05-26 07:27 | P.PN ---
Subjective Progress Note Date: 05/26/23 This is a 62-year-old female patient who presented to the emergency room on 05/22/2023 with complaints of right flank pain. She had a four-day history of ongoing urgency and frequency and hematuria but was unable to see her primary doctor. She was having issues with nausea and vomiting as well. She has a history of diabetes mellitus, hypertension, diabetic neuropathy, CVA, alcoholic seizures, kidney stones chronic and ongoing tobacco dependence, marijuana use, daily heavy alcohol use admitting to a fifth of whiskey a day. Her last drink was earlier in the day on the . Computed tomography scan of the abdomen and pelvis revealed inflammation changes around the right kidney without evidence of obstructing calculus. Mild dilatation of the collecting system. Correlate for recently passed renal calculus. Nodular liver contour with caudate lobe hypertrophy findings compatible with cirrhosis. Ultrasound of the kidneys and bladder revealed no evidence of obstructive uropathy. She was admitted to the regular medical floor with urinary tract infection, acute kidney injury and dehydration. At approximately 6:00 last evening the patient developed hypertension, tachycardia, hallucinations and a CIWA scale score greater than 15. The patient was transferred to the intensive care unit and initiated on Precedex infusion. She is seen today in consultation. She is arousable, oriented, calm and cooperative. Remains on Precedex at 0.3 mcg/kg per hour. She has normal saline and 130 ML's per hour. She had issues with atrial fibrillation with a rapid ventricular response and required Cardizem drip and hypotension with norepinephrine briefly. Both drips are currently on pause. White count 7.2. Hemoglobin 12.0. Platelets 36,000. Arterial blood gases a PaO2 of 82, pCO2 29 and a pH of 7.44 and 44% FiO2. Sodium 125. Potassium 3.9. Bicarb 14. BUN 32. Creatinine 1.63. Glucose 127. She is on antibiotics in the form of ceftriaxone. On today's evaluation of 05/25/2023, the patient is being seen for a follow-up. This is a very pleasant 60-year-old female patient, who presented to us with a urine checked infection and sepsis. She is currently septic with a gram-negative bacillus in her blood and the blood cultures have confirmed the finding. CAT scan of the abdomen and pelvis that was done on 05/22/2023 showed inflammatory changes in the right kidney without evidence of any obstructive calculus. There is also mild dilatation of the collecting duct indicating pos sibility of a passed renal calculus. She also has underlying liver cirrhosis as the patient is an alcoholic. She has mild cardiomegaly. She has moderate atherosclerotic changes and a complex renal cysts. Ultrasound of the abdomen was also done that showed no evidence of any hydronephrosis. For now, the patient is on IV fluids and she is on 0.9 at 130 mL an hour. She has been adequately resuscitated. She is on no pressors at this point in time. Antibiotic coverage is with IV Rocephin and she is receiving 2 g every 24 hours At the same time, the patient is encephalopathic and she is interviewed and. She is alert and oriented 1. The patient is off Precedex for now. She is receiving Haldol and Ativan and morphine as needed. She is not awake enough to have her breakfast at this point in time. She is quite lethargic and somnolent. She is arousable however. She is moving all 4 extremities. She has a congested cough. The echoes at 4 with a hemoglobin of 11.1 and a platelet count is chronically low at 32 with some interval drop in the platelet count. No evidence of any bleeding. Had acute kidney injury is also improving. Creatinine is down to 1.23 from as high as 1.9 with a BUN of 32. Serum bicarb is at 16 with a sodium level of 129 and a potassium level of 4.4. Her last echocardiogram was on 03/11/2023 and that showed an ejection fraction of 60-65%. She has multiple scratches in her lower extremities and she states that she has 18 cats at home 05/26/2023, the patient remains confused. Occasional yelling out and agitation. Overnight, she received a total of 3 mg of Ativan and this morning she is essentially calm and quiet and relaxing. No signs of any respiratory distress. She remains on oxygen at 2 L nasal cannula. She remains on IV Rocephin r egarding her sepsis and the blood culture was positive with E. coli sensitive to IV Rocephin which is being on a 2 g every 24 hours. The white cell count at 6.8 with a hemoglobin of 12.1. Platelet counts were low and we're awaiting a follow-up platelet count from today. Sodium level is at 128 and the patient is currently on normal saline at the rate of 130 mL an hour. Potassium level needs to be replaced at 3.0 and the serum bicarb is at 60 with a BUN of 25 and a creatinine of 0.9. Ammonia level was less than 9. Echocardiogram was completed yesterday and the patient was found to have a preserved LV function with an EF of around 55-60%. No significant valvular abnormalities and the patient is not taking any form of pressors at this point in time. Objective - Vital Signs Vital signs: Vital Signs Temp 98.7 F 05/26/23 04:00 Pulse 100 05/26/23 07:00 Resp 23 05/26/23 07:00 BP 140/87 05/26/23 07:00 Pulse Ox 97 05/26/23 07:00 FiO2 Intake & Output 05/25/23 05/26/23 05/26/23 18:59 06:59 18:59 Intake Total 2160 1560 130 Output Total 500 395 50 Balance 1660 1165 80 Weight 101.2 kg Intake: IV 1560 1560 130 Sodium Chloride 0.9% 1, 1560 1560 130 000 ml @ 130 mls/hr IV . Q7H42M [facility] Rx#:[id number] Oral 600 Output: Urine 500 395 50 Other: Voiding Method External Catheter External Catheter - Exam GENERAL EXAM: Arousable, 62-year-old female, on 2 L nasal cannula, comfortable in no apparent distress. Encephalopathic, lethargic yet arousable. HEAD: Normocephalic. EYES: Normal reaction of pupils, equal size. NOSE: Clear with pink turbinates. THROAT: No erythema or exudates. NECK: No masses, no JVD. CHEST: No chest wall deformity. LUNGS: Equal air entry with no crackles, wheeze, rhonchi or dullness. CVS: S1 and S2 normal with no audible murmur, regular rhythm. ABDOMEN: No hepatosplenomegaly, normal bowel sounds, no guarding or rigidity. SPINE: No scoliosis or deformity SKIN: No rashes CENTRAL NERVOUS SYSTEM: No focal deficits, tone is normal in all 4 extremities. EXTREMITIES: There is no peripheral edema. No clubbing, no cyanosis. Peripheral pulses are intact. - Labs CBC & Chem 7: 05/26/23 03:16 05/26/23 03:16 Labs: Abnormal Lab Results - Last 24 Hours (Table) 11/12/23 11/13/23 11/13/23 Range/Units 05:49 14:38 20:10 RBC (3.80-5.40) m/uL MCV (80.0-100.0) fL Sodium (137-145) mmol/L Potassium (3.5-5.1) mmol/L Carbon Dioxide (22-30) mmol/L BUN (7-17) mg/dL Glucose (74-99) mg/dL POC Glucose (mg/dL) 125 H 152 H (70-110) mg/dL Calcium (8.4-10.2) mg/dL Procalcitonin 29.60 H (0.02-0.09) ng/mL 05/26/23 05/26/23 Range/Units 03:16 03:16 RBC 3.50 L (3.80-5.40) m/uL MCV 103.8 H (80.0-100.0) fL Sodium 128 L (137-145) mmol/L Potassium 3.0 L (3.5-5.1) mmol/L Carbon Dioxide 16 L (22-30) mmol/L BUN 25 H (7-17) mg/dL Glucose 114 H (74-99) mg/dL POC Glucose (mg/dL) (70-110) mg/dL Calcium 8.2 L (8.4-10.2) mg/dL Procalcitonin (0.02-0.09) ng/mL Microbiology - Last 24 Hours (Table) 05/22/23 23:00 Blood Culture Gram Stain - Final Blood Blood Culture - Final Escherichia coli 05/22/23 22:45 Blood Culture Gram Stain - Final Blood Blood Culture - Final Escherichia coli 05/23/23 00:30 Urine Culture - Final Urine,Voided Escherichia coli Assessment and Plan Plan: Acute sepsis secondary to a UTI/E. coli in her urine and blood. Hemodynamically stable on IV Rocephin. No evidence of any hydronephrosis. Suspected right pyelonephritis. The patient remains on IV Rocephin 2 g every 24 hours E. coli sepsis Encephalopathy, multifactorial. Part related to her underlying sepsis and is same time the patient is likely withdrawing from alcoholism as the patient has been drinking a fifth of whiskey every day. Still requiring Ativan for ongoing confusion and episodic agitation Acute alcohol withdrawal syndrome off Precedex infusion and ICU management. Iván kirkpatrick admits to one fifth of whiskey a day Hyponatremia secondary to above Cirrhosis secondary to above Acute kidney injury secondary to dehydration, improving Non-anion gap metabolic acidosis Chronic thrombocytopenia, likely alcohol induced versus chronic liver disease. Hypertension Diabetes mellitus Diabetic neuropathy History of CVA/TIA History of seizure secondary to alcohol withdrawal History of anxiety/depression History of marijuana use Chronic and ongoing tobacco dependence Plan Change the patient to a bicarb infusion rate of 75 mL an hour to correct the bicarb deficit, would utilize a total of 150 mEq of sodium bicarbonate Replace potassium Continue IV Rocephin Check ammonia level, level was low Monitor mental status and use Precedex if needed for any significant agitation. For now, the patient is on a combination of Ativan and Haldol, required a total of 3 mg of IV Ativan overnight Monitor renal function and platelet count Renal function is improving, creatinine is normal for now Keep the patient nothing by mouth for now, perform a bedside swallow evaluation once the patient is more awake Titrate FiO2 to maintain saturation above 90% Check a urine drug screen We will continue to monitor in the ICU
[2023-05-26] MEDS: metFORMIN 500 MG TAB PO SCH ×2 (07:38→17:20)
[2023-05-26] MEDS: CALCIUM CARBONATE 500 MG CHEWABLE PO SCH (08:19)
[2023-05-26] MEDS: METOPROLOL TARTRATE 50 MG TAB PO SCH (08:19)
[2023-05-26] MEDS: THIAMINE 100 MG TAB PO SCH (08:19)
[2023-05-26] MEDS: PANTOPRAZOLE 40 MG/10 ML VIAL IV SCH (08:19)
[2023-05-26] MEDS: DEXTROSE 5% IN WATER 1,000 ML with SODIUM BICARB (1 MEQ/ML) 150 ML IV SCH (08:20)
[2023-05-26] MEDS: MULTIVITAMINS, THERA 1 EACH TAB PO SCH (08:20)
--- NOTE | 2023-05-26 08:28 | XR ---
EXAMINATION TYPE: XR chest 1V portable DATE OF EXAM: 05/26/2023 COMPARISON: 12/25/2020 HISTORY: Shortness of breath TECHNIQUE: Single frontal view of the chest is obtained. FINDINGS: Bilateral consolidation and small effusion greater on the right. Heart is enlarged. Athero sclerotic change aorta. The risks. Hypertrophic degenerative change of the spine. IMPRESSION: 1. Interval development of bilateral lower lobe infiltrate and small effusion. Correlate for pneumoni a.
[2023-05-26] MEDS: METOPROLOL TARTRATE 25 MG TAB PO SCH ×2 (08:30→19:55)
[2023-05-26 08:33] LABS: Glucose,Whole Blood 148 mg/dL (70-110)
--- NOTE | 2023-05-26 09:50 | P.PN ---
Subjective Progress Note Date: 05/26/23 The patient is a 60-year-old female currently admitted to the hospital with urinary tract infection. She subsequently underwent EtOH withdrawal and developed atrial fibrillation with RVR. She was started on Cardizem IV and ultimately converted back to sinus rhythm. Overnight the patient converted back to atrial fibrillation with heart rates in the 90s to low 100s, where she currently remains. Patient was interviewed and examined resting comfortably in bed. She is alert to self. GENERAL: Well-appearing, well-nourished and in no acute distress. NECK: Supple without JVD or thyromegaly. LUNGS: Breath sounds are coarse to auscultation bilaterally. Respiration equal and unlabored. Bilateral rhonchi. HEART: Regular rate and rhythm without murmurs, rubs or gallops. S1 and S2 heard. EXTREMITIES: Normal range of motion, mild edema. No clubbing or cyanosis. Peripheral pulses intact and strong. TELEMETRY: Sinus rhythm LABS: WBC 6.8, hemoglobin 12.1, hematocrit 36.3, sodium 128, potassium 3.0, BUN 21, creatinine 0.91 IMPRESSION: A. fib with RVR EtOH withdrawal Thrombocytopenia Urinary tract infection Electrolyte imbalance, hyponatremia and hypokalemia PLAN: Increase metoprolol to 75 mg twice daily Supplement electrolytes per protocol Not a candidate for anticoagulation due to thrombocytopenia Further recommendations based upon clinical course I am dictating on behalf of Dr Julius Allred's history/physical and assessment/plan. Objective - Vital Signs Vital signs: Vital Signs Temp 97.8 F 05/26/23 08:00 Pulse 85 05/26/23 08:00 Resp 14 05/26/23 08:00 BP 149/79 05/26/23 08:00 Pulse Ox 96 05/26/23 08:00 FiO2 Intake & Output 05/25/23 05/26/23 05/26/23 18:59 06:59 18:59 Intake Total 2160 1560 360 Output Total 500 395 50 Balance 1660 1165 310 Weight 101.2 kg Intake: IV 1560 1560 260 Sodium Chloride 0.9% 1, 1560 1560 260 000 ml @ 130 mls/hr IV . Q7H42M [facility] Rx#:[id number] Oral 600 100 Output: Urine 500 395 50 Other: Voiding Method External Catheter External Catheter - Labs CBC & Chem 7: 05/26/23 03:16 05/26/23 03:16 Labs: Abnormal Lab Results - Last 24 Hours (Table) 05/24/23 05/25/23 05/25/23 Range/Units 05:49 14:38 20:10 RBC (3.80-5.40) m/uL MCV (80.0-100.0) fL Sodium (137-145) mmol/L Potassium (3.5-5.1) mmol/L Carbon Dioxide (22-30) mmol/L BUN (7-17) mg/dL Glucose (74-99) mg/dL POC Glucose (mg/dL) 125 H 152 H (70-110) mg/dL Calcium (8.4-10.2) mg/dL Procalcitonin 29.60 H (0.02-0.09) ng/mL 05/26/23 05/26/23 05/26/23 Range/Units 03:16 03:16 08:32 RBC 3.50 L (3.80-5.40) m/uL MCV 103.8 H (80.0-100.0) fL Sodium 128 L (137-145) mmol/L Potassium 3.0 L (3.5-5.1) mmol/L Carbon Dioxide 16 L (22-30) mmol/L BUN 25 H (7-17) mg/dL Glucose 114 H (74-99) mg/dL POC Glucose (mg/dL) 148 H (70-110) mg/dL Calcium 8.2 L (8.4-10.2) mg/dL Procalcitonin (0.02-0.09) ng/mL Microbiology - Last 24 Hours (Table) 05/22/23 23:00 Blood Culture Gram Stain - Final Blood Blood Culture - Final Escherichia coli 05/22/23 22:45 Blood Culture Gram Stain - Final Blood Blood Culture - Final Escherichia coli 05/23/23 00:30 Urine Culture - Final Urine,Voided Escherichia coli
[2023-05-26 11:43] LABS: Glucose,Whole Blood 171 mg/dL (70-110)
--- NOTE | 2023-05-26 13:29 | P.PN ---
Subjective Progress Note Date: 05/26/23 Principal diagnosis: E coli pyelonephritis and bacteremia Patient is a 62 year old female with a past medical history significant for diabetes mellitus hypertension [place], seizure disorder presenting to the hospital for evaluation of right flank pain, patient has been diagnosed with right-sided pyelonephritis and did have E. coli bacteremia. Patient has been transferred to the ICU because of DTs On today's evaluation that is 05/26/2023, the patient continues be afebrile the patient is breathing comfortably on the 2 L nasal cannula oxygen patient remains to be lethargic and not good historian no vomiting diarrhea or any other changes reported by the nursing staff. Patient white count of 6.8, creatinine is 0.91, abdominal ultrasound evidence of obstructive uropathy blood culture with gram-negative bacilli urine culture with E. coli that is sensitive pathogen Objective - Vital Signs Vital signs: Vital Signs Temp 98.2 F 05/26/23 12:00 Pulse 84 05/26/23 12:00 Resp 16 05/26/23 12:00 BP 155/90 05/26/23 12:00 Pulse Ox 97 05/26/23 12:00 FiO2 Intake & Output 05/25/23 05/26/23 05/26/23 18:59 06:59 18:59 Intake Total 2160 1560 710 Output Total 500 395 50 Balance 1660 1165 660 Weight 101.2 kg Intake: IV 1560 1560 260 Sodium Chloride 0.9% 1, 1560 1560 260 000 ml @ 130 mls/hr IV . Q7H42M RAUL Rx#:[id number] Intake, IV Titration 350 Amount Dextrose 5% in Water 1, 300 000 ml @ 75 mls/hr IV . [id number] RAUL with Sodium Bicarb (1 Meq/ml) 150 ml Rx#:[id number] cefTRIAXone 2 gm In 50 Sodium Chloride 0.9% 50 ml @ 100 mls/hr IVPB Q24H RAUL Rx#:[id number] Oral 600 100 Output: Urine 500 395 50 Other: Voiding Method External Catheter External Catheter External Catheter - Exam GENERAL DESCRIPTION: A middle-aged female lying in bed in no distress RESPIRATORY SYSTEM: Unlabored breathing , decreased breath sound at the bases HEART: S1 S2 regular rate and rhythm , ABDOMEN: Soft , no tenderness EXTREMITIES: No edema feet - Labs CBC & Chem 7: 05/26/23 03:16 05/26/23 03:16 Labs: Abnormal Lab Results - Last 24 Hours (Table) 05/25/23 05/25/23 05/26/23 Range/Units 14:38 20:10 03:16 RBC (3.80-5.40) m/uL MCV (80.0-100.0) fL Plt Count (150-450) k/uL Lymphocytes # (1.0-4.8) k/uL Sodium 128 L (137-145) mmol/L Potassium 3.0 L (3.5-5.1) mmol/L Carbon Dioxide 16 L (22-30) mmol/L BUN 25 H (7-17) mg/dL Glucose 114 H (74-99) mg/dL POC Glucose (mg/dL) 125 H 152 H (70-110) mg/dL Calcium 8.2 L (8.4-10.2) mg/dL 05/26/23 05/26/23 05/26/23 Range/Units 03:16 08:32 11:40 RBC 3.50 L (3.80-5.40) m/uL MCV 103.8 H (80.0-100.0) fL Plt Count 43 L (150-450) k/uL Lymphocytes # 0.7 L (1.0-4.8) k/uL Sodium (137-145) mmol/L Potassium (3.5-5.1) mmol/L Carbon Dioxide (22-30) mmol/L BUN (7-17) mg/dL Glucose (74-99) mg/dL POC Glucose (mg/dL) 148 H 171 H (70-110) mg/dL Calcium (8.4-10.2) mg/dL Microbiology - Last 24 Hours (Table) 05/22/23 23:00 Blood Culture Gram Stain - Final Blood Blood Culture - Final Escherichia coli 05/22/23 22:45 Blood Culture Gram Stain - Final Blood Blood Culture - Final Escherichia coli 05/23/23 00:30 Urine Culture - Final Urine,Voided Escherichia coli Assessment and Plan (1) Gram-negative bacteremia Current Visit: Yes Status: Acute Code(s): R78.81 - BACTEREMIA SNOMED Code(s): 579634420059 (2) Urinary tract infection Current Visit: Yes Status: Acute Code(s): N39.0 - URINARY TRACT INFECTION, SITE NOT SPECIFIED SNOMED Code(s): 68517325 Plan: 1patient presented to the hospital with sepsis in this patient who did have a elevated white count and tachycardia elevated lactic acid has been complaining of right flank pain positive UA likely complicated UTI 2blood culture positive for gram-negative bacilli source is likely urinary 3- ultrasound of the kidney and bladder did not show any obstructive uropathy 4patient is afebrile patient white count is normal, patient will continue with Rocephin 2 g daily and monitor clinical course closely Dictation was produced using [employer] dictation software. please excuse any grammatical, word or spelling errors. Time with Patient: Less than 30
[2023-05-26 13:54] LABS: Urine Alcohol Negative (Negative)
[2023-05-26 13:55] LABS: Urine Barbiturate Negative (Negative); Urine Cocaine Negative (Negative); Urine Methadone Negative (Negative); Urine Opiates Positive (Negative); Urine Phencyclidine Negative (Negative)
[2023-05-26 17:20] LABS: Glucose,Whole Blood 148 mg/dL (70-110)
[2023-05-26] MEDS: traZODone HCL 100 MG TAB PO SCH (19:56)
[2023-05-26] MEDS: DULoxetine HCL 60 MG CAPSULE.DR PO SCH (19:56)
[2023-05-26 20:10] LABS: Glucose,Whole Blood 158 mg/dL (70-110)
[2023-05-27] MEDS ORDERED: Potassium Replacement Protocol 1 EACH MISC MISCELLANE PRN ×2 (00:03→05:21)
[2023-05-27] MEDS: DEXTROSE 5% IN WATER 1,000 ML with SODIUM BICARB (1 MEQ/ML) 150 ML IV SCH (00:15)
[2023-05-27] MEDS: POTASSIUM BICARBONATE/CIT AC 20 MEQ TABLET.EFF NG-TUBE SCH ×2 (00:23→01:29)
[2023-05-27] MEDS ORDERED: POTASSIUM CHLORIDE 10 MEQ in WATER FOR INJECTION 1 100ML.BAG IVPB SCH (01:00)
[2023-05-27] MEDS: MORPHINE SULFATE 4 MG/ML SYRINGE IV PRN (02:20)
[2023-05-27 05:05] LABS: Basophils % (A) 0 %; Eosinophils % (A) 0 %; HCT 37.8 % (34.0-46.0); HGB 12.7 gm/dL (11.4-16.0); Lymphocytes # (A) 0.7 k/uL (1.0-4.8); Lymphocytes % (A) 8 %; MCH 33.8 pg (25.0-35.0); MCHC 33.5 g/dL (31.0-37.0); Macrocytosis Slight; Mean Platelet Volume 11.5; Monocytes # (A) 0.8 k/uL (0-1.0); Monocytes % (A) 9 %; Neutrophils # (A) 7.2 k/uL (1.3-7.7); Neutrophils % (A) 80 %; Platelet Count 60 k/uL (150-450); RBC 3.74 m/uL (3.80-5.40); RDW 13.3 % (11.5-15.5)
[2023-05-27 05:18] LABS: African American GFR (CKD) 89 (>60 ml/min/1.73 sqM); Anion Gap 7 mmol/L; Blood Urea Nitrogen 20 mg/dL (7-17); Calcium 8.6 mg/dL (8.4-10.2); Carbon Dioxide 24 mmol/L (22-30); Chloride 99 mmol/L (98-107); Glucose 167 mg/dL (74-99); Magnesium 1.6 mg/dL (1.6-2.3); Non-African American GFR(CKD) 77 (>60 ml/min/1.73 sqM); Potassium 3.2 mmol/L (3.5-5.1); Sodium 130 mmol/L (137-145)
[2023-05-27] MEDS ORDERED: Magnesium Replacement Protocol 1 EACH MISC MISCELLANE PRN (05:22)
[2023-05-27] MEDS: MAGNESIUM SULFATE-D5W PMX 1 GM in DEXTROSE/WATER 1 100ML.BAG IVPB SCH ×2 (05:30→06:23)
[2023-05-27] MEDS: POTASSIUM CHLORIDE ER 20 MEQ TAB.ER PO SCH ×2 (05:30→05:54)
[2023-05-27] MEDS ORDERED: POTASSIUM BICARBONATE/CIT AC 20 MEQ TABLET.EFF PO ONE (05:55)
[2023-05-27] MEDS: LORazepam 2 MG/ML INJ IV PRN ×2 (05:57→21:19)
[2023-05-27 06:31] LABS: Glucose,Whole Blood 182 mg/dL (70-110)
[2023-05-27] MEDS: INSULIN ASPART (NovoLOG) 100 UNIT/ML VIAL SQ SCH ×4 (06:52→20:40)
[2023-05-27] MEDS: PANTOPRAZOLE 40 MG/10 ML VIAL IV SCH (08:15)
[2023-05-27] MEDS: metFORMIN 500 MG TAB PO SCH ×2 (08:15→17:41)
[2023-05-27] MEDS: MULTIVITAMINS, THERA 1 EACH TAB PO SCH (08:15)
[2023-05-27] MEDS: METOPROLOL TARTRATE 25 MG TAB PO SCH (08:15)
[2023-05-27] MEDS: THIAMINE 100 MG TAB PO SCH (08:15)
[2023-05-27] MEDS: CALCIUM CARBONATE 500 MG CHEWABLE PO SCH (08:15)
--- NOTE | 2023-05-27 09:14 | P.PN ---
Subjective Progress Note Date: 05/27/23 This is a 62-year-old female patient who presented to the emergency room on 05/22/2023 with complaints of right flank pain. She had a four-day history of ongoing urgency and frequency and hematuria but was unable to see her primary doctor. She was having issues with nausea and vomiting as well. She has a history of diabetes mellitus, hypertension, diabetic neuropathy, CVA, alcoholic seizures, kidney stones chronic and ongoing tobacco dependence, marijuana use, daily heavy alcohol use admitting to a fifth of whiskey a day. Her last drink was earlier in the day on the . Computed tomography scan of the abdomen and pelvis revealed inflammation changes around the right kidney without evidence of obstructing calculus. Mild dilatation of the collecting system. Correlate for recently passed renal calculus. Nodular liver contour with caudate lobe hypertrophy findings compatible with cirrhosis. Ultrasound of the kidneys and bladder revealed no evidence of obstructive uropathy. She was admitted to the regular medical floor with urinary tract infection, acute kidney injury and dehydration. At approximately 6:00 last evening the patient developed hypertension, tachycardia, hallucinations and a CIWA scale score greater than 15. The patient was transferred to the intensive care unit and initiated on Precedex infusion. She is seen today in consultation. She is arousable, oriented, calm and cooperative. Remains on Precedex at 0.3 mcg/kg per hour. She has normal saline and 130 ML's per hour. She had issues with atrial fibrillation with a rapid ventricular response and required Cardizem drip and hypotension with norepinephrine briefly. Both drips are currently on pause. White count 7.2. Hemoglobin 12.0. Platelets 36,000. Arterial blood gases a PaO2 of 82, pCO2 29 and a pH of 7.44 and 44% FiO2. Sodium 125. Potassium 3.9. Bicarb 14. BUN 32. Creatinine 1.63. Glucose 127. She is on antibiotics in the form of ceftriaxone. On today's evaluation of 05/25/2023, the patient is being seen for a follow-up. This is a very pleasant 60-year-old female patient, who presented to us with a urine checked infection and sepsis. She is currently septic with a gram-negative bacillus in her blood and the blood cultures have confirmed the finding. CAT scan of the abdomen and pelvis that was done on 05/22/2023 showed inflammatory changes in the right kidney without evidence of any obstructive calculus. There is also mild dilatation of the collecting duct indicating pos sibility of a passed renal calculus. She also has underlying liver cirrhosis as the patient is an alcoholic. She has mild cardiomegaly. She has moderate atherosclerotic changes and a complex renal cysts. Ultrasound of the abdomen was also done that showed no evidence of any hydronephrosis. For now, the patient is on IV fluids and she is on 0.9 at 130 mL an hour. She has been adequately resuscitated. She is on no pressors at this point in time. Antibiotic coverage is with IV Rocephin and she is receiving 2 g every 24 hours At the same time, the patient is encephalopathic and she is interviewed and. She is alert and oriented 1. The patient is off Precedex for now. She is receiving Haldol and Ativan and morphine as needed. She is not awake enough to have her breakfast at this point in time. She is quite lethargic and somnolent. She is arousable however. She is moving all 4 extremities. She has a congested cough. The echoes at 4 with a hemoglobin of 11.1 and a platelet count is chronically low at 32 with some interval drop in the platelet count. No evidence of any bleeding. Had acute kidney injury is also improving. Creatinine is down to 1.23 from as high as 1.9 with a BUN of 32. Serum bicarb is at 16 with a sodium level of 129 and a potassium level of 4.4. Her last echocardiogram was on 03/11/2023 and that showed an ejection fraction of 60-65%. She has multiple scratches in her lower extremities and she states that she has 18 cats at home 05/26/2023, the patient remains confused. Occasional yelling out and agitation. Overnight, she received a total of 3 mg of Ativan and this morning she is essentially calm and quiet and relaxing. No signs of any respiratory distress. She remains on oxygen at 2 L nasal cannula. She remains on IV Rocephin r egarding her sepsis and the blood culture was positive with E. coli sensitive to IV Rocephin which is being on a 2 g every 24 hours. The white cell count at 6.8 with a hemoglobin of 12.1. Platelet counts were low and we're awaiting a follow-up platelet count from today. Sodium level is at 128 and the patient is currently on normal saline at the rate of 130 mL an hour. Potassium level needs to be replaced at 3.0 and the serum bicarb is at 60 with a BUN of 25 and a creatinine of 0.9. Ammonia level was less than 9. Echocardiogram was completed yesterday and the patient was found to have a preserved LV function with an EF of around 55-60%. No significant valvular abnormalities and the patient is not taking any form of pressors at this point in time. 05/27/2023, the patient remains lethargic. Less confused compared to yesterday. Upon frequent trials, she was able to state location and name and birthdate. She seems to be more improved compared to yesterday although she still having episodes of confusion. Overall, more cooperative compared to yesterday. He received a total of 2 mg of Ativan overnight. Remains on IV Rocephin. Afebrile. Hemodynamically stable. Still on a bicarb infusion rate of 75 mL an hour. Serum bicarbs up to 24. Sodium is at 1:30 with a potassium level of 3.2. The white cell count is 9 with a hemoglobin 12.7 and the patient's platelet count is at 60. She has been on oxygen and she is currently on 2 L nasal cannula. Oral intake is quite diminished at this point in time. Objective - Vital Signs Vital signs: Vital Signs Temp 98.5 F 05/27/23 08:00 Pulse 115 H 05/27/23 09:00 Resp 22 05/27/23 09:00 BP 142/102 05/27/23 09:00 Pulse Ox 97 05/27/23 09:00 FiO2 Intake & Output 05/26/23 05/27/23 05/27/23 18:59 06:59 18:59 Intake Total 1160 1100 225 Output Total 550 500 400 Balance 610 600 -175 Weight 100.2 kg Intake: IV 260 150 Dextrose 5% in Water 1, 150 000 ml @ 75 mls/hr IV . [id number] RAUL with Sodium Bicarb (1 Meq/ml) 150 ml Rx#:[id number] Sodium Chloride 0.9% 1, 260 000 ml @ 130 mls/hr IV . Q7H42M RAUL Rx#:[id number] Intake, IV Titration 800 900 75 Amount Dextrose 5% in Water 1, 750 900 75 000 ml @ 75 mls/hr IV . [id number] RAUL with Sodium Bicarb (1 Meq/ml) 150 ml Rx#:[id number] cefTRIAXone 2 gm In 50 Sodium Chloride 0.9% 50 ml @ 100 mls/hr IVPB Q24H [facility] Rx#:[id number] Oral 100 200 Output: Urine 550 500 400 Other: Voiding Method External Catheter External Catheter # Voids 1 - Exam GENERAL EXAM: Arousable, 62-year-old female, on 2 L nasal cannula, comfortable in no apparent distress. Encephalopathic, lethargic yet arousable. More alert compared to yesterday, communicating, still having episodes of confusion. HEAD: Normocephalic. EYES: Normal reaction of pupils, equal size. NOSE: Clear with pink turbinates. THROAT: No erythema or exudates. NECK: No masses, no JVD. CHEST: No chest wall deformity. LUNGS: Equal air entry with no crackles, wheeze, rhonchi or dullness. CVS: S1 and S2 normal with no audible murmur, regular rhythm. ABDOMEN: No hepatosplenomegaly, normal bowel sounds, no guarding or rigidity. SPINE: No scoliosis or deformity SKIN: No rashes CENTRAL NERVOUS SYSTEM: No focal deficits, tone is normal in all 4 extremities. EXTREMITIES: There is no peripheral edema. No clubbing, no cyanosis. Peripheral pulses are intact. - Labs CBC & Chem 7: 05/27/23 04:23 05/27/23 04:23 Labs: Abnormal Lab Results - Last 24 Hours (Table) 05/26/23 05/26/23 05/26/23 Range/Units 03:16 07:40 11:40 RBC (3.80-5.40) m/uL MCV (80.0-100.0) fL Plt Count 43 L (150-450) k/uL Lymphocytes # 0.7 L (1.0-4.8) k/uL Sodium (137-145) mmol/L Potassium (3.5-5.1) mmol/L BUN (7-17) mg/dL Glucose (74-99) mg/dL POC Glucose (mg/dL) 171 H (70-110) mg/dL Urine Opiates Screen Positive A (Negative) 05/26/23 05/26/23 05/26/23 Range/Units 17:19 20:08 23:13 RBC (3.80-5.40) m/uL MCV (80.0-100.0) fL Plt Count (150-450) k/uL Lymphocytes # (1.0-4.8) k/uL Sodium (137-145) mmol/L Potassium 3.3 L (3.5-5.1) mmol/L BUN (7-17) mg/dL Glucose (74-99) mg/dL POC Glucose (mg/dL) 148 H 158 H (70-110) mg/dL Urine Opiates Screen (Negative) 05/27/23 05/27/23 05/27/23 Range/Units 04:23 04:23 06:29 RBC 3.74 L (3.80-5.40) m/uL MCV 101.0 H (80.0-100.0) fL Plt Count 60 L (150-450) k/uL Lymphocytes # 0.7 L (1.0-4.8) k/uL Sodium 130 L (137-145) mmol/L Potassium 3.2 L (3.5-5.1) mmol/L BUN 20 H (7-17) mg/dL Glucose 167 H (74-99) mg/dL POC Glucose (mg/dL) 182 H (70-110) mg/dL Urine Opiates Screen (Negative) Assessment and Plan Plan: Acute sepsis secondary to a UTI/E. coli in her urine and blood. Hemodynamically stable on IV Rocephin. No evidence of any hydronephrosis. Suspected right pyelonephritis. The patient remains on IV Rocephin 2 g every 24 hours E. coli sepsis Encephalopathy, multifactorial. Part related to her underlying sepsis and is same time the patient is likely withdrawing from alcoholism as the patient has been drinking a fifth of whiskey every day. Still requiring Ativan for ongoing confusion and episodic agitation, the patient received 2 mg of Ativan overnight and currently she seems to be still having episodes of confusion also she is more alert and communicative on today's evaluation. Acute alcohol withdrawal syndrome off Precedex infusion and ICU management. Patient admits to one fifth of whiskey a day Hyponatremia secondary to above Cirrhosis secondary to above Acute kidney injury secondary to dehydration, improving, renal function is normalized Non-anion gap metabolic acidosis, recovered Chronic thrombocytopenia, likely alcohol induced versus chronic liver disease. Platelet counts have improved since yesterday Hypertension Diabetes mellitus Diabetic neuropathy History of CVA/TIA History of seizure secondary to alcohol withdrawal History of anxiety/depression History of marijuana use Chronic and ongoing tobacco dependence Plan Change the patient's stool normal saline at the rate of 40 mL an hour Replace potassium Continue IV Rocephin Check ammonia level, level was low Monitor mental status and use Precedex if needed for any significant agitation. For now, the patient is on a combination of Ativan and Haldol, required a total of 3 mg of IV Ativan overnight. We'll try to limit the Ativan use Monitor renal function and platelet count Renal function is improving, creatinine is normal for now Keep the patient nothing by mouth for now, perform a bedside swallow evaluation once the patient is more awake Titrate FiO2 to maintain saturation above 90% Check a urine drug screen was negative We will continue to monitor in the ICU
[2023-05-27] MEDS ORDERED: METOPROLOL TARTRATE 25 MG TAB PO STA (09:22)
--- NOTE | 2023-05-27 09:22 | P.PN ---
Subjective Progress Note Date: 05/27/23 The patient is a 60-year-old female currently admitted to the hospital with urinary tract infection. She subsequently underwent EtOH withdrawal and developed atrial fibrillation with RVR. Initially she was started on Cardizem IV and converted back into sinus rhythm. Yesterday the patient has become more alert and agitated and returned to atrial fibrillation. Heart rates range from 80s to 130s. Patient was interviewed and examined in bed. The patient is more alert and agitated today. She is asking to leave the hospital. She denies any pain GENERAL: Well-appearing, well-nourished and in no acute distress. NECK: Supple without JVD or thyromegaly. LUNGS: Breath sounds are coarse to auscultation bilaterally. Respiration equal and unlabored. Bilateral rhonchi. HEART: Irregular rate and rhythm without murmurs, rubs or gallops. S1 and S2 heard. EXTREMITIES: Normal range of motion, mild edema. No clubbing or cyanosis. Peripheral pulses intact and strong. TELEMETRY: Persistent atrial fibrillation LABS: WBC 9.0, hemoglobin 12.7, hematocrit 37.8, platelet 80, sodium 1:30, potassium 3.2, BUN 20, creatinine 0.82, magnesium 1.6 IMPRESSION: A. fib with RVR EtOH withdrawal Thrombocytopenia Urinary tract infection Electrolyte imbalance, hyponatremia and hypokalemia PLAN: Increase metoprolol to 100mg twice daily Supplement electrolytes per protocol Not a candidate for anticoagulation due to thrombocytopenia Further recommendations based upon clinical course I am dictating on behalf of Dr Julius Allred's history/physical and assessment/plan. Objective - Vital Signs Vital signs: Vital Signs Temp 98.5 F 05/27/23 08:00 Pulse 115 H 05/27/23 09:00 Resp 22 05/27/23 09:00 BP 142/102 05/27/23 09:00 Pulse Ox 97 05/27/23 09:00 FiO2 Intake & Output 05/26/23 05/27/23 05/27/23 18:59 06:59 18:59 Intake Total 1160 1100 225 Output Total 550 500 400 Balance 610 600 -175 Weight 100.2 kg Intake: IV 260 150 Dextrose 5% in Water 1, 150 000 ml @ 75 mls/hr IV . [id number] RAUL with Sodium Bicarb (1 Meq/ml) 150 ml Rx#:[id number] Sodium Chloride 0.9% 1, 260 000 ml @ 130 mls/hr IV . Q7H42M RAUL Rx#:[id number] Intake, IV Titration 800 900 75 Amount Dextrose 5% in Water 1, 750 900 75 000 ml @ 75 mls/hr IV . [id number] RAUL with Sodium Bicarb (1 Meq/ml) 150 ml Rx#:[id number] cefTRIAXone 2 gm In 50 Sodium Chloride 0.9% 50 ml @ 100 mls/hr IVPB Q24H RAUL Rx#:[id number] Oral 100 200 Output: Urine 550 500 400 Other: Voiding Method External Catheter External Catheter # Voids 1 - Labs CBC & Chem 7: 05/27/23 04:23 05/27/23 04:23 Labs: Abnormal Lab Results - Last 24 Hours (Table) 05/26/23 05/26/23 05/26/23 Range/Units 03:16 07:40 11:40 RBC (3.80-5.40) m/uL MCV (80.0-100.0) fL Plt Count 43 L (150-450) k/uL Lymphocytes # 0.7 L (1.0-4.8) k/uL Sodium (137-145) mmol/L Potassium (3.5-5.1) mmol/L BUN (7-17) mg/dL Glucose (74-99) mg/dL POC Glucose (mg/dL) 171 H (70-110) mg/dL Urine Opiates Screen Positive A (Negative) 05/26/23 05/26/23 05/26/23 Range/Units 17:19 20:08 23:13 RBC (3.80-5.40) m/uL MCV (80.0-100.0) fL Plt Count (150-450) k/uL Lymphocytes # (1.0-4.8) k/uL Sodium (137-145) mmol/L Potassium 3.3 L (3.5-5.1) mmol/L BUN (7-17) mg/dL Glucose (74-99) mg/dL POC Glucose (mg/dL) 148 H 158 H (70-110) mg/dL Urine Opiates Screen (Negative) 05/27/23 05/27/23 05/27/23 Range/Units 04:23 04:23 06:29 RBC 3.74 L (3.80-5.40) m/uL MCV 101.0 H (80.0-100.0) fL Plt Count 60 L (150-450) k/uL Lymphocytes # 0.7 L (1.0-4.8) k/uL Sodium 130 L (137-145) mmol/L Potassium 3.2 L (3.5-5.1) mmol/L BUN 20 H (7-17) mg/dL Glucose 167 H (74-99) mg/dL POC Glucose (mg/dL) 182 H (70-110) mg/dL Urine Opiates Screen (Negative)
[2023-05-27] MEDS: SODIUM CHLORIDE 0.9% 1,000 ML IV SCH (10:03)
[2023-05-27 11:06] LABS: Glucose,Whole Blood 151 mg/dL (70-110)
--- NOTE | 2023-05-27 11:30 | P.PN ---
Subjective Progress Note Date: 05/27/23 Principal diagnosis: Reason for follow-up is E coli pyelonephritis and bacteremia Patient is a 62 year old female with a past medical history significant for diabetes mellitus hypertension [place], seizure disorder presenting to the hospital for evaluation of right flank pain, patient has been diagnosed with right-sided pyelonephritis and did have E. coli bacteremia. Patient has been transferred to the ICU because of DTs On today's evaluation that is 05/27/2023, the patient continues to be afebrile , the patient is breathing comfortably on 2 L nasal cannula supplemental oxygen, the patient did have periods of confusion but when awake no that she is in the hospital currently denies any chest pain or cough, nausea/vomiting, no abdominal pain and no diarrhea has been reported by the nursing staff Patient white count is 9.0, creatinine is 0.82, abdominal ultrasound evidence of obstructive uropathy blood culture with gram-negative bacilli urine culture with E. coli that is sensitive pathogen Objective - Vital Signs Vital signs: Vital Signs Temp 98.5 F 05/27/23 08:00 Pulse 90 05/27/23 11:00 Resp 20 05/27/23 11:00 BP 136/106 05/27/23 11:00 Pulse Ox 97 05/27/23 11:00 FiO2 Intake & Output 05/26/23 05/27/23 05/27/23 18:59 06:59 18:59 Intake Total 1160 1100 305 Output Total 550 500 400 Balance 610 600 -95 Weight 100.2 kg Intake: IV 260 230 Dextrose 5% in Water 1, 150 000 ml @ 75 mls/hr IV . [id number] RAUL with Sodium Bicarb (1 Meq/ml) 150 ml Rx#:[id number] Sodium Chloride 0.9% 1, 260 000 ml @ 130 mls/hr IV . Q7H42M RAUL Rx#:[id number] Sodium Chloride 0.9% 1, 80 000 ml @ 40 mls/hr IV . Q24H RAUL Rx#:[id number] Intake, IV Titration 800 900 75 Amount Dextrose 5% in Water 1, 750 900 75 000 ml @ 75 mls/hr IV . [id number] RAUL with Sodium Bicarb (1 Meq/ml) 150 ml Rx#:[id number] cefTRIAXone 2 gm In 50 Sodium Chloride 0.9% 50 ml @ 100 mls/hr IVPB Q24H [facility] Rx#:[id number] Oral 100 200 Output: Urine 550 500 400 Other: Voiding Method External Catheter External Catheter Diaper External Catheter # Voids 1 - Exam GENERAL DESCRIPTION: A middle-aged female lying in bed in no distress RESPIRATORY SYSTEM: Unlabored breathing , decreased breath sound at the bases HEART: S1 S2 regular rate and rhythm , ABDOMEN: Soft , no tenderness EXTREMITIES: No edema feet - Labs CBC & Chem 7: 05/27/23 04:23 05/27/23 04:23 Labs: Abnormal Lab Results - Last 24 Hours (Table) 05/26/23 05/26/23 05/26/23 Range/Units 03:16 07:40 11:40 RBC (3.80-5.40) m/uL MCV (80.0-100.0) fL Plt Count 43 L (150-450) k/uL Lymphocytes # 0.7 L (1.0-4.8) k/uL Sodium (137-145) mmol/L Potassium (3.5-5.1) mmol/L BUN (7-17) mg/dL Glucose (74-99) mg/dL POC Glucose (mg/dL) 171 H (70-110) mg/dL Urine Opiates Screen Positive A (Negative) 05/26/23 05/26/23 05/26/23 Range/Units 17:19 20:08 23:13 RBC (3.80-5.40) m/uL MCV (80.0-100.0) fL Plt Count (150-450) k/uL Lymphocytes # (1.0-4.8) k/uL Sodium (137-145) mmol/L Potassium 3.3 L (3.5-5.1) mmol/L BUN (7-17) mg/dL Glucose (74-99) mg/dL POC Glucose (mg/dL) 148 H 158 H (70-110) mg/dL Urine Opiates Screen (Negative) 05/27/23 05/27/23 05/27/23 Range/Units 04:23 04:23 06:29 RBC 3.74 L (3.80-5.40) m/uL MCV 101.0 H (80.0-100.0) fL Plt Count 60 L (150-450) k/uL Lymphocytes # 0.7 L (1.0-4.8) k/uL Sodium 130 L (137-145) mmol/L Potassium 3.2 L (3.5-5.1) mmol/L BUN 20 H (7-17) mg/dL Glucose 167 H (74-99) mg/dL POC Glucose (mg/dL) 182 H (70-110) mg/dL Urine Opiates Screen (Negative) 05/27/23 Range/Units 11:05 RBC (3.80-5.40) m/uL MCV (80.0-100.0) fL Plt Count (150-450) k/uL Lymphocytes # (1.0-4.8) k/uL Sodium (137-145) mmol/L Potassium (3.5-5.1) mmol/L BUN (7-17) mg/dL Glucose (74-99) mg/dL POC Glucose (mg/dL) 151 H (70-110) mg/dL Urine Opiates Screen (Negative) Assessment and Plan (1) Gram-negative bacteremia Current Visit: Yes Status: Acute Code(s): R78.81 - BACTEREMIA SNOMED Code(s): 206761235651 (2) Urinary tract infection Current Visit: Yes Status: Acute Code(s): N39.0 - URINARY TRACT INFECTION, SITE NOT SPECIFIED SNOMED Code(s): 78476866 Plan: 1patient presented to the hospital with sepsis in this patient who did have a elevated white count and tachycardia elevated lactic acid has been complaining of right flank pain positive UA likely complicated UTI 2blood culture positive for gram-negative bacilli source is likely urinary 3- ultrasound of the kidney and bladder did not show any obstructive uropathy 4patient is a slowly clinical performing, remains to be afebrile white count is normal, patient will continue with Rocephin 2 g daily and monitor clinical course closely Dictation was produced using [employer] dictation software. please excuse any grammatical, word or spelling errors. Time with Patient: Less than 30
[2023-05-27] MEDS: HALOPERIDOL LACTATE 5 MG/ML 1 ML VIAL IVP PRN ×2 (12:27→18:10)
--- NOTE | 2023-05-27 14:22 | P.PN ---
Subjective Progress Note Date: 05/26/23 This is 62-year-old female admitted with acute sepsis secondary to acute complicated UTI with E. coli and gram-negative bacillus bacteremia, alcohol withdrawals in a patient with known alcohol abuse, liver disease, chronic thrombocytopenia, acute renal failure, hyponatremia and multiple other medical issues. Maintained on CIWA protocol, Haldol and morphine. Somnolent, NPO. Maintained on ceftriaxone as per ID. pro calcitonin 29.6. Gentle IV fluid hydration, Renal function improving. T-max 99.8. Maintaining O2 sats in the high 90s on 2 L nasal cannula. Magnesium 1.6. Blood sugars controlled. 05/26/2023 maintained on ceftriaxone, blood cultures reporting E. coli . Afebrile, WBC 6.8. Maintaining O2 sats in the high 90s on 2 L nasal cannula. Chest x-ray reported to full development of bilateral lower lobe infiltrate and small effusion . Echo reported preserved LV function .Current CIWA score 6 on CIWA protocol. Received 3 mg of Ativan throughout the night, less agitated this morning. Potassium 3.3, magnesium 1.7, receiving electrolyte supplementation as per ICU replacement protocols. Sodium 128. Bicarbonate 16, on bicarb drip. BUN 25, creatinine 0.91. Urine drug screen positive for opiates. Blood sugars controlled. Objective - Vital Signs Vital signs: Vital Signs Temp 98 F 05/26/23 16:00 Pulse 93 05/26/23 17:00 Resp 14 05/26/23 17:00 BP 138/93 05/26/23 17:00 Pulse Ox 97 05/26/23 16:00 FiO2 Intake & Output 05/25/23 05/26/23 05/26/23 18:59 06:59 18:59 Intake Total 2160 1560 1085 Output Total 500 395 50 Balance 1660 1165 1035 Weight 101.2 kg Intake: IV 1560 1560 260 Sodium Chloride 0.9% 1, 1560 1560 260 000 ml @ 130 mls/hr IV . Q7H42M [facility] Rx#:[id number] Intake, IV Titration 725 Amount Dextrose 5% in Water 1, 675 000 ml @ 75 mls/hr IV . [id number] [facility] with Sodium Bicarb (1 Meq/ml) 150 ml Rx#:[id number] cefTRIAXone 2 gm In 50 Sodium Chloride 0.9% 50 ml @ 100 mls/hr IVPB Q24H [facility] Rx#:[id number] Oral 600 100 Output: Urine 500 395 50 Other: Voiding Method External Catheter External Catheter External Catheter # Voids 1 - Exam GENERAL EXAM: Lethargic, arousable 62-year-old female, on 2 L nasal cannula, comfortable in no apparent distress. HEAD: Normocephalic. Pupils normal. NECK: Supple, no JVD. LUNGS: Unlabored, Equal air entry, bilateral bases diminished CVS: S1 and S2 normal with no audible murmur, regular rhythm. ABDOMEN: Soft, Nontender, no guarding or rigidity.+BS SKIN: No rashes, multiple scratches on lower extremities NERVOUS SYSTEM: Limited, unable to assess at this time, alert and oriented 1 EXTREMITIES:+1 peripheral edema. No clubbing, no cyanosis. Doppler pulses. - Labs CBC & Chem 7: 05/27/23 04:23 05/27/23 11:56 Labs: Abnormal Lab Results - Last 24 Hours (Table) 05/25/23 05/26/23 05/26/23 Range/Units 20:10 03:16 03:16 RBC 3.50 L (3.80-5.40) m/uL MCV 103.8 H (80.0-100.0) fL Plt Count 43 L (150-450) k/uL Lymphocytes # 0.7 L (1.0-4.8) k/uL Sodium 128 L (137-145) mmol/L Potassium 3.0 L (3.5-5.1) mmol/L Carbon Dioxide 16 L (22-30) mmol/L BUN 25 H (7-17) mg/dL Glucose 114 H (74-99) mg/dL POC Glucose (mg/dL) 152 H (70-110) mg/dL Calcium 8.2 L (8.4-10.2) mg/dL Urine Opiates Screen (Negative) 05/26/23 05/26/23 05/26/23 Range/Units 07:40 08:32 11:40 RBC (3.80-5.40) m/uL MCV (80.0-100.0) fL Plt Count (150-450) k/uL Lymphocytes # (1.0-4.8) k/uL Sodium (137-145) mmol/L Potassium (3.5-5.1) mmol/L Carbon Dioxide (22-30) mmol/L BUN (7-17) mg/dL Glucose (74-99) mg/dL POC Glucose (mg/dL) 148 H 171 H (70-110) mg/dL Calcium (8.4-10.2) mg/dL Urine Opiates Screen Positive A (Negative) 05/26/23 Range/Units 17:19 RBC (3.80-5.40) m/uL MCV (80.0-100.0) fL Plt Count (150-450) k/uL Lymphocytes # (1.0-4.8) k/uL Sodium (137-145) mmol/L Potassium (3.5-5.1) mmol/L Carbon Dioxide (22-30) mmol/L BUN (7-17) mg/dL Glucose (74-99) mg/dL POC Glucose (mg/dL) 148 H (70-110) mg/dL Calcium (8.4-10.2) mg/dL Urine Opiates Screen (Negative) Microbiology - Last 24 Hours (Table) 05/22/23 23:00 Blood Culture Gram Stain - Final Blood Blood Culture - Final Escherichia coli 05/22/23 22:45 Blood Culture Gram Stain - Final Blood Blood Culture - Final Escherichia coli Assessment and Plan Assessment: Acute sepsis secondary to suspected acute complicated UTI with E. coli and E Coli bacteremia. Renal ultrasound did not report obstructive uropathy. Acute toxic metabolic encephalopathy secondary to the above as well as alcohol withdrawal Alcohol abuse, acute EtOH withdrawal, on CIWA protocol, status post Precedex. Thrombocytopenia, chronic secondary to the above as well as liver disease Acute renal failure, secondary to dehydration, improving A. fib with RVR, not on anticoagulation at this time secondary to thrombocytopenia Lactic acidosis Hypertension Hyponatremia Liver cirrhosis secondary to the above Diabetes mellitus Diabetic neuropathy History of CVA, TIA History of seizure disorder secondary to alcohol withdrawal History of marijuana use Ongoing nicotine dependence Anxiety, depression Plan:Continue on current medication regime ,monitoring and symptomatic treatment. IV antibiotics as per ID. Continue on CIWA protocol. Electrolyte supplementation as per ICU replacement protocols. NPO. Prognosis guarded given multiple complex medical issues. The impression and plan of care has been dictated as directed. : I performed a history and examination of this patient, discussed the same with the dictator. I agree with the dictator's note ,documented as a scribe. Any additional findings or plans will be noted.
--- NOTE | 2023-05-27 14:34 | P.PN ---
Subjective Progress Note Date: 05/27/23 This is 62-year-old female admitted with acute sepsis secondary to acute complicated UTI with E. coli and gram-negative bacillus bacteremia, alcohol withdrawals in a patient with known alcohol abuse, liver disease, chronic thrombocytopenia, acute renal failure, hyponatremia and multiple other medical issues. Maintained on CIWA protocol, Haldol and morphine. Somnolent, NPO. Maintained on ceftriaxone as per ID. pro calcitonin 29.6. Gentle IV fluid hydration, Renal function improving. T-max 99.8. Maintaining O2 sats in the high 90s on 2 L nasal cannula. Magnesium 1.6. Blood sugars controlled. 05/26/2023 maintained on ceftriaxone, blood cultures reporting E. coli . Afebrile, WBC 6.8. Maintaining O2 sats in the high 90s on 2 L nasal cannula. Chest x-ray reported to full development of bilateral lower lobe infiltrate and small effusion . Echo reported preserved LV function .Current CIWA score 6 on CIWA protocol. Received 3 mg of Ativan throughout the night, less agitated this morning. Potassium 3.3, magnesium 1.7, receiving electrolyte supplementation as per ICU replacement protocols. Sodium 128. Bicarbonate 16, on bicarb drip. BUN 25, creatinine 0.91. Urine drug screen positive for opiates. Blood sugars controlled. 05/27/2023 CIWA score @ 0600 8, received Ativan, morphine, current CIWA score 0. Sensorium improving. Maintained on bicarb drip with bicarbonate increased to 24. Sodium 1:30 Continues on ceftriaxone, afebrile, normal WBC. Maintaining O2 sats in the 90s on 2 L nasal cannula. Potassium 3.2, magnesium 1.6. Objective - Vital Signs Vital signs: Vital Signs Temp 98.5 F 05/27/23 08:00 Pulse 96 05/27/23 13:00 Resp 17 05/27/23 13:00 BP 130/73 05/27/23 13:00 Pulse Ox 96 05/27/23 13:00 FiO2 Intake & Output 05/26/23 05/27/23 05/27/23 18:59 06:59 18:59 Intake Total 1160 1100 305 Output Total 550 500 400 Balance 610 600 -95 Weight 100.2 kg Intake: IV 260 230 Dextrose 5% in Water 1, 150 000 ml @ 75 mls/hr IV . [id number] [facility] with Sodium Bicarb (1 Meq/ml) 150 ml Rx#:[id number] Sodium Chloride 0.9% 1, 260 000 ml @ 130 mls/hr IV . Q7H42M [facility] Rx#:[id number] Sodium Chloride 0.9% 1, 80 000 ml @ 40 mls/hr IV . Q24H [facility] Rx#:[id number] Intake, IV Titration 800 900 75 Amount Dextrose 5% in Water 1, 750 900 75 000 ml @ 75 mls/hr IV . [id number] [facility] with Sodium Bicarb (1 Meq/ml) 150 ml Rx#:[id number] cefTRIAXone 2 gm In 50 Sodium Chloride 0.9% 50 ml @ 100 mls/hr IVPB Q24H [facility] Rx#:[id number] Oral 100 200 Output: Urine 550 500 400 Other: Voiding Method External Catheter External Catheter Diaper External Catheter # Voids 1 - Exam GENERAL EXAM: Lethargic, arousable 62-year-old female, on 2 L nasal cannula, com fortable in no apparent distress. HEAD: Normocephalic. Pupils normal. NECK: Supple, no JVD. LUNGS: Unlabored, Equal air entry, bilateral bases diminished CVS: S1 and S2 normal with no audible murmur, regular rhythm. ABDOMEN: Soft, Nontender, no guarding or rigidity.+BS SKIN: No rashes, multiple scratches on lower extremities NERVOUS SYSTEM: Limited, unable to assess at this time, alert and oriented 1 EXTREMITIES:+1 peripheral edema. No clubbing, no cyanosis. Doppler pulses. Microbiology 05/22/23 23:00 Blood Blood Culture Gram Stain - Final 05/22/23 23:00 Blood Blood Culture - Final Escherichia coli 05/22/23 22:45 Blood Blood Culture Gram Stain - Final 05/22/23 22:45 Blood Blood Culture - Final Escherichia coli 05/23/23 00:30 Urine,Voided Urine Culture - Final Escherichia coli - Labs CBC & Chem 7: 05/27/23 04:23 05/27/23 11:56 Labs: Abnormal Lab Results - Last 24 Hours (Table) 05/26/23 05/26/23 05/26/23 Range/Units 17:19 20:08 23:13 RBC (3.80-5.40) m/uL MCV (80.0-100.0) fL Plt Count (150-450) k/uL Lymphocytes # (1.0-4.8) k/uL Sodium (137-145) mmol/L Potassium 3.3 L (3.5-5.1) mmol/L BUN (7-17) mg/dL Glucose (74-99) mg/dL POC Glucose (mg/dL) 148 H 158 H (70-110) mg/dL 05/27/23 05/27/23 05/27/23 Range/Units 04:23 04:23 06:29 RBC 3.74 L (3.80-5.40) m/uL MCV 101.0 H (80.0-100.0) fL Plt Count 60 L (150-450) k/uL Lymphocytes # 0.7 L (1.0-4.8) k/uL Sodium 130 L (137-145) mmol/L Potassium 3.2 L (3.5-5.1) mmol/L BUN 20 H (7-17) mg/dL Glucose 167 H (74-99) mg/dL POC Glucose (mg/dL) 182 H (70-110) mg/dL 05/27/23 Range/Units 11:05 RBC (3.80-5.40) m/uL MCV (80.0-100.0) fL Plt Count (150-450) k/uL Lymphocytes # (1.0-4.8) k/uL Sodium (137-145) mmol/L Potassium (3.5-5.1) mmol/L BUN (7-17) mg/dL Glucose (74-99) mg/dL POC Glucose (mg/dL) 151 H (70-110) mg/dL Assessment and Plan Assessment: Acute sepsis secondary to suspected acute complicated UTI with E. coli and E Coli bacteremia. Renal ultrasound did not report obstructive uropathy. Acute toxic metabolic encephalopathy secondary to the above as well as alcohol withdrawal Alcohol abuse, acute EtOH withdrawal, on CIWA protocol, status post Precedex. Thrombocytopenia, chronic secondary to the above as well as liver disease Acute renal failure, secondary to dehydration, improving A. fib with RVR, not on anticoagulation at this time secondary to thrombocytopenia Lactic acidosis Hypertension Hyponatremia Liver cirrhosis secondary to the above Diabetes mellitus Diabetic neuropathy History of CVA, TIA History of seizure disorder secondary to alcohol withdrawal History of marijuana use Ongoing nicotine dependence Anxiety, depression Plan:Continue on current medication regime ,monitoring and symptomatic treatment. CIWA protocol.Antibiotics as per ID. Electrolyte supplementation as per ICU replacement protocols. Prognosis guarded given multiple complex medical issues.PT/OT. The impression and plan of care has been dictated as directed. : I performed a history and examination of this patient, discussed the same with the dictator. I agree with the dictator's note ,documented as a scribe. Any additional findings or plans will be noted.
[2023-05-27 16:16] LABS: Glucose,Whole Blood 145 mg/dL (70-110)
[2023-05-27] MEDS: METOPROLOL TARTRATE 50 MG TAB PO SCH (18:11)
[2023-05-27 20:22] LABS: Glucose,Whole Blood 149 mg/dL (70-110)
[2023-05-27] MEDS: DULoxetine HCL 60 MG CAPSULE.DR PO SCH (21:00)
[2023-05-27] MEDS: traZODone HCL 100 MG TAB PO SCH (21:00)
[2023-05-27] MEDS ORDERED: POTASSIUM CHLORIDE ER 20 MEQ TAB.ER PO ONE (21:00)
[2023-05-27] MEDS ORDERED: DILTIAZEM DRIP BOLUS FROM BAG 1 MG SOLN IV ONE (22:22)
[2023-05-27] MEDS ORDERED: DILTIAZEM 125 MG in SODIUM CHLORIDE 0.9% 100 ML IV SCH (22:30)
[2023-05-28] MEDS: LORazepam 2 MG/ML INJ IV PRN ×4 (02:13→12:31)
[2023-05-28 05:37] LABS: Basophils % (A) 0 %; Eosinophils % (A) 0 %; HCT 34.3 % (34.0-46.0); HGB 11.6 gm/dL (11.4-16.0); Lymphocytes # (A) 0.7 k/uL (1.0-4.8); Lymphocytes % (A) 7 %; MCH 34.7 pg (25.0-35.0); MCV 102.3 fL (80.0-100.0); Macrocytosis Slight; Monocytes # (A) 0.8 k/uL (0-1.0); Monocytes % (A) 8 %; Neutrophils # (A) 8.3 k/uL (1.3-7.7); Neutrophils % (A) 82 %; RBC 3.35 m/uL (3.80-5.40); RDW 13.5 % (11.5-15.5); WBC 10.2 k/uL (3.8-10.6)
[2023-05-28 05:39] LABS: African American GFR (CKD) >90 (>60 ml/min/1.73 sqM); Anion Gap 9 mmol/L; Blood Urea Nitrogen 18 mg/dL (7-17); Calcium 8.6 mg/dL (8.4-10.2); Carbon Dioxide 25 mmol/L (22-30); Chloride 99 mmol/L (98-107); Glucose 140 mg/dL (74-99); Magnesium 1.6 mg/dL (1.6-2.3); Non-African American GFR(CKD) 86 (>60 ml/min/1.73 sqM); Potassium 3.9 mmol/L (3.5-5.1); Sodium 133 mmol/L (137-145)
[2023-05-28 06:00] LABS: Platelet Count 100 k/uL (150-450)
[2023-05-28 06:15] LABS: Glucose,Whole Blood 137 mg/dL (70-110)
[2023-05-28] MEDS: MAGNESIUM SULFATE-D5W PMX 1 GM in DEXTROSE/WATER 1 100ML.BAG IVPB SCH ×2 (06:16→08:04)
[2023-05-28] MEDS: INSULIN ASPART (NovoLOG) 100 UNIT/ML VIAL SQ SCH ×4 (06:46→22:22)
[2023-05-28] MEDS: metFORMIN 500 MG TAB PO SCH ×2 (06:58→17:18)
[2023-05-28] MEDS ORDERED: POTASSIUM CHLORIDE ER 20 MEQ TAB.ER PO SCH (07:00)
[2023-05-28] MEDS: CALCIUM CARBONATE 500 MG CHEWABLE PO SCH (08:05)
[2023-05-28] MEDS: METOPROLOL TARTRATE 50 MG TAB PO SCH ×2 (08:05→20:01)
[2023-05-28] MEDS: SODIUM CHLORIDE 0.9% 1,000 ML IV SCH (08:05)
[2023-05-28] MEDS: PANTOPRAZOLE 40 MG/10 ML VIAL IV SCH (08:05)
[2023-05-28] MEDS: MULTIVITAMINS, THERA 1 EACH TAB PO SCH (08:05)
[2023-05-28] MEDS: THIAMINE 100 MG TAB PO SCH (08:05)
--- NOTE | 2023-05-28 08:18 | P.PN ---
Subjective Progress Note Date: 05/28/23 This is a 62-year-old female patient who presented to the emergency room on 05/22/2023 with complaints of right flank pain. She had a four-day history of ongoing urgency and frequency and hematuria but was unable to see her primary doctor. She was having issues with nausea and vomiting as well. She has a history of diabetes mellitus, hypertension, diabetic neuropathy, CVA, alcoholic seizures, kidney stones chronic and ongoing tobacco dependence, marijuana use, daily heavy alcohol use admitting to a fifth of whiskey a day. Her last drink was earlier in the day on the . Computed tomography scan of the abdomen and pelvis revealed inflammation changes around the right kidney without evidence of obstructing calculus. Mild dilatation of the collecting system. Correlate for recently passed renal calculus. Nodular liver contour with caudate lobe hypertrophy findings compatible with cirrhosis. Ultrasound of the kidneys and bladder revealed no evidence of obstructive uropathy. She was admitted to the regular medical floor with urinary tract infection, acute kidney injury and dehydration. At approximately 6:00 last evening the patient developed hypertension, tachycardia, hallucinations and a CIWA scale score greater than 15. The patient was transferred to the intensive care unit and initiated on Precedex infusion. She is seen today in consultation. She is arousable, oriented, calm and cooperative. Remains on Precedex at 0.3 mcg/kg per hour. She has normal saline and 130 ML's per hour. She had issues with atrial fibrillation with a rapid ventricular response and required Cardizem drip and hypotension with norepinephrine briefly. Both drips are currently on pause. White count 7.2. Hemoglobin 12.0. Platelets 36,000. Arterial blood gases a PaO2 of 82, pCO2 29 and a pH of 7.44 and 44% FiO2. Sodium 125. Potassium 3.9. Bicarb 14. BUN 32. Creatinine 1.63. Glucose 127. She is on antibiotics in the form of ceftriaxone. On today's evaluation of 05/25/2023, the patient is being seen for a follow-up. This is a very pleasant 60-year-old female patient, who presented to us with a urine checked infection and sepsis. She is currently septic with a gram-negative bacillus in her blood and the blood cultures have confirmed the finding. CAT scan of the abdomen and pelvis that was done on 05/22/2023 showed inflammatory changes in the right kidney without evidence of any obstructive calculus. There is also mild dilatation of the collecting duct indicating pos sibility of a passed renal calculus. She also has underlying liver cirrhosis as the patient is an alcoholic. She has mild cardiomegaly. She has moderate atherosclerotic changes and a complex renal cysts. Ultrasound of the abdomen was also done that showed no evidence of any hydronephrosis. For now, the patient is on IV fluids and she is on 0.9 at 130 mL an hour. She has been adequately resuscitated. She is on no pressors at this point in time. Antibiotic coverage is with IV Rocephin and she is receiving 2 g every 24 hours At the same time, the patient is encephalopathic and she is interviewed and. She is alert and oriented 1. The patient is off Precedex for now. She is receiving Haldol and Ativan and morphine as needed. She is not awake enough to have her breakfast at this point in time. She is quite lethargic and somnolent. She is arousable however. She is moving all 4 extremities. She has a congested cough. The echoes at 4 with a hemoglobin of 11.1 and a platelet count is chronically low at 32 with some interval drop in the platelet count. No evidence of any bleeding. Had acute kidney injury is also improving. Creatinine is down to 1.23 from as high as 1.9 with a BUN of 32. Serum bicarb is at 16 with a sodium level of 129 and a potassium level of 4.4. Her last echocardiogram was on 03/11/2023 and that showed an ejection fraction of 60-65%. She has multiple scratches in her lower extremities and she states that she has 18 cats at home 05/26/2023, the patient remains confused. Occasional yelling out and agitation. Overnight, she received a total of 3 mg of Ativan and this morning she is essentially calm and quiet and relaxing. No signs of any respiratory distress. She remains on oxygen at 2 L nasal cannula. She remains on IV Rocephin r egarding her sepsis and the blood culture was positive with E. coli sensitive to IV Rocephin which is being on a 2 g every 24 hours. The white cell count at 6.8 with a hemoglobin of 12.1. Platelet counts were low and we're awaiting a follow-up platelet count from today. Sodium level is at 128 and the patient is currently on normal saline at the rate of 130 mL an hour. Potassium level needs to be replaced at 3.0 and the serum bicarb is at 60 with a BUN of 25 and a creatinine of 0.9. Ammonia level was less than 9. Echocardiogram was completed yesterday and the patient was found to have a preserved LV function with an EF of around 55-60%. No significant valvular abnormalities and the patient is not taking any form of pressors at this point in time. 05/27/2023, the patient remains lethargic. Less confused compared to yesterday. Upon frequent trials, she was able to state location and name and birthdate. She seems to be more improved compared to yesterday although she still having episodes of confusion. Overall, more cooperative compared to yesterday. He received a total of 2 mg of Ativan overnight. Remains on IV Rocephin. Afebrile. Hemodynamically stable. Still on a bicarb infusion rate of 75 mL an hour. Serum bicarbs up to 24. Sodium is at 1:30 with a potassium level of 3.2. The white cell count is 9 with a hemoglobin 12.7 and the patient's platelet count is at 60. She has been on oxygen and she is currently on 2 L nasal cannula. Oral intake is quite diminished at this point in time. There is still lethargic and sleepy. Nevertheless, she is arousable. She was able to have a full breakfast today. She was fed by the nursing staff. She has weakness in her upper extremities. Overall, quite debilitated and still profoundly weak. She sleeps a lot. No agitation. Overnight, the patient went into atrial fibrillation with rapid ventricular response. She was given Cardizem drip and she was also given by mouth Lopressor. A total of 100 mg P the rate is controlled for now. She remains itchy fibrillation. Note that echocardiogram has been essentially within normal limits and the patient has normal lipid ejection fraction. The patient is afebrile. She is hemodynamically stable. She is on IV fluids with normal saline at the rate of 40 mL an hour. The white cell cause of 10.2 with a hemoglobin of 11.6. BUN is 18 with a creatinine of 0.7 and sodium levels of 133 and a potassium level is at 3.9. Her most recent chest x-ray from 05/26/2023 showed small bilateral pleural effusions more so on the right. She is currently on oxygen at 4 L nasal cannula. She remains on IV Rocephin regarding her E. coli sepsis. Platelet counts continue to improve. Objective - Vital Signs Vital signs: Vital Signs Temp 97.7 F 05/28/23 08:00 Pulse 86 05/28/23 08:00 Resp 20 05/28/23 08:00 BP 172/81 05/28/23 08:00 Pulse Ox 98 05/28/23 08:00 FiO2 Intake & Output 05/27/23 05/28/23 05/28/23 18:59 06:59 18:59 Intake Total 585 515.333 304.167 Output Total 600 650 Balance -15 -134.667 304.167 Weight 99.7 kg Intake: IV 510 480 80 Dextrose 5% in Water 1, 150 000 ml @ 75 mls/hr IV . [id number] [facility] with Sodium Bicarb (1 Meq/ml) 150 ml Rx#:[id number] Sodium Chloride 0.9% 1, 360 480 80 000 ml @ 40 mls/hr IV . Q24H [facility] Rx#:[id number] Intake, IV Titration 75 35.333 104.167 Amount Dextrose 5% in Water 1, 75 000 ml @ 75 mls/hr IV . [id number] [facility] with Sodium Bicarb (1 Meq/ml) 150 ml Rx#:[id number] Diltiazem 125 mg In 35.333 4.167 Sodium Chloride 0.9% 100 ml @ Per Protocol IV .Q0M [facility] Rx#:[id number] Magnesium Sulfate-D5w Pmx 100 1 gm In Dextrose/Water 1 100ml.bag @ 100 mls/hr IVPB Q1H [facility] Rx#: [id number] Oral 120 Output: Urine 600 650 Other: Voiding Method Diaper Diaper External Catheter External Catheter # Voids 1 1 - Exam GENERAL EXAM: Arousable, 62-year-old female, on 4 L nasal cannula, comfortable in no apparent distress. I would say the patient is still encephalopathic. Overnight, she got somewhat agitated and she was pulling and thrashing. She received Ativan again. This morning, she is able to follow commands. She had breakfast. She is quite sleepy. No signs of any significant respiratory distress at this point in time. HEAD: Normocephalic. EYES: Normal reaction of pupils, equal size. NOSE: Clear with pink turbinates. THROAT: No erythema or exudates. NECK: No masses, no JVD. CHEST: No chest wall deformity. LUNGS: Equal air entry with no crackles, wheeze, rhonchi or dullness. CVS: S1 and S2 normal with no audible murmur, regular rhythm. ABDOMEN: No hepatosplenomegaly, normal bowel sounds, no guarding or rigidity. SPINE: No scoliosis or deformity SKIN: No rashes CENTRAL NERVOUS SYSTEM: No focal deficits, tone is normal in all 4 extremities. Generalized global weakness all 4 extremities. EXTREMITIES: There is no peripheral edema. No clubbing, no cyanosis. Peripheral pulses are intact. - Labs CBC & Chem 7: 05/28/23 04:55 05/28/23 04:55 Labs: Abnormal Lab Results - Last 24 Hours (Table) 05/27/23 05/27/23 05/27/23 Range/Units 11:05 16:15 20:21 RBC (3.80-5.40) m/uL MCV (80.0-100.0) fL Plt Count (150-450) k/uL Neutrophils # (1.3-7.7) k/uL Lymphocytes # (1.0-4.8) k/uL Sodium (137-145) mmol/L BUN (7-17) mg/dL Glucose (74-99) mg/dL POC Glucose (mg/dL) 151 H 145 H 149 H (70-110) mg/dL 05/28/23 05/28/23 05/28/23 Range/Units 04:55 04:55 06:13 RBC 3.35 L (3.80-5.40) m/uL MCV 102.3 H (80.0-100.0) fL Plt Count 100 L D (150-450) k/uL Neutrophils # 8.3 H (1.3-7.7) k/uL Lymphocytes # 0.7 L (1.0-4.8) k/uL Sodium 133 L (137-145) mmol/L BUN 18 H (7-17) mg/dL Glucose 140 H (74-99) mg/dL POC Glucose (mg/dL) 137 H (70-110) mg/dL Assessment and Plan Plan: Acute sepsis secondary to a UTI/E. coli in her urine and blood. Hemodynamically stable on IV Rocephin. No evidence of any hydronephrosis. Suspected right pyelonephritis. The patient remains on IV Rocephin 2 g every 24 hours E. coli sepsis, being treated with IV Rocephin Encephalopathy, multifactorial. Part related to her underlying sepsis and is same time the patient is likely withdrawing from alcoholism as the patient has been drinking a fifth of whiskey every day. Still requiring Ativan for ongoing confusion and episodic agitation, the patient continues to receive Ativan for agitation Acute alcohol withdrawal syndrome off Precedex infusion and ICU management. Patient admits to one fifth of whiskey a day New onset atrial fibrillation, the rate is controlled for now and the patient is off the Cardizem drip. The patient is on metoprolol 100 mg by mouth twice a day. No anticoagulants for now Hyponatremia secondary to above, recovered Cirrhosis secondary to above Acute kidney injury secondary to dehydration, improving, renal function is normalized Non-anion gap metabolic acidosis, recovered Chronic thrombocytopenia, likely alcohol induced versus chronic liver disease. Platelet counts have improved since yesterday Hypertension Diabetes mellitus Diabetic neuropathy History of CVA/TIA History of seizure secondary to alcohol withdrawal History of anxiety/depression History of marijuana use Chronic and ongoing tobacco dependence Plan Change the patient's stool normal saline at the rate of 40 mL an hour Continue IV Rocephin Check ammonia level, level was low Minimize the use of Ativan. Monitor renal function and platelet count Renal function is improving, creatinine is normal for now Patient was able to have breakfast today Titrate FiO2 to maintain saturation above 90%, currently on 40s of oxygen by nasal cannula and repeat chest x-ray will be ordered We'll start the patient anticoagulation with Eliquis regarding her atrial fibrillation Check a urine drug screen was negative We will continue to monitor in the ICU
[2023-05-28] MEDS: APIXABAN 2.5 MG TABLET PO SCH ×2 (08:30→20:01)
[2023-05-28] MEDS: MORPHINE SULFATE 4 MG/ML SYRINGE IV PRN ×2 (09:12→13:19)
--- NOTE | 2023-05-28 09:54 | P.PN ---
Subjective Progress Note Date: 05/28/23 The patient is a 60-year-old female currently admitted to the hospital with urinary tract infection. She subsequently underwent EtOH withdrawal and developed atrial fibrillation with RVR. Initially she was started on Cardizem IV and converted back into sinus rhythm and once the patient became more alert, she is return to persistent atrial fibrillation. Heart rates range from 80s to 130s. Blood pressure and heart rate are notably more elevated erring her awakening hours. Patient was resting comfortably in bed at the time of my examination. No acute distress. GENERAL: Well-appearing, well-nourished and in no acute distress. NECK: Supple without JVD or thyromegaly. LUNGS: Breath sounds are coarse to auscultation bilaterally. Respiration equal and unlabored. Bilateral rhonchi. HEART: Irregular rate and rhythm without murmurs, rubs or gallops. S1 and S2 heard. EXTREMITIES: Normal range of motion, mild edema. No clubbing or cyanosis. Peripheral pulses intact and strong. TELEMETRY: Persistent atrial fibrillation LABS: WBC 10.2, hemoglobin 11.6, hematocrit 34.3, platelet 100, sodium 133, potassium 3.9, BUN 18, creatinine 0.75 IMPRESSION: A. fib with RVR EtOH withdrawal Thrombocytopenia Urinary tract infection Electrolyte imbalance, hyponatremia and hypokalemia Hypertension PLAN: Initiate Losartan 25 mg twice daily for hypertension Supplement electrolytes per protocol Poor candidate for long-term anticoagulation with her history of thrombocytopenia and EtOH abuse Further recommendations based upon clinical course I am dictating on behalf of Dr Julius Allred's history/physical and assessment/plan. Objective - Vital Signs Vital signs: Vital Signs Temp 97.7 F 05/28/23 08:00 Pulse 90 05/28/23 09:00 Resp 25 H 05/28/23 09:00 BP 165/98 05/28/23 09:00 Pulse Ox 99 05/28/23 09:00 FiO2 Intake & Output 05/27/23 05/28/23 05/28/23 18:59 06:59 18:59 Intake Total 585 515.333 344.167 Output Total 600 650 Balance -15 -134.667 344.167 Weight 99.7 kg Intake: IV 510 480 120 Dextrose 5% in Water 1, 150 000 ml @ 75 mls/hr IV . [id number] [facility] with Sodium Bicarb (1 Meq/ml) 150 ml Rx#:[id number] Sodium Chloride 0.9% 1, 360 480 120 000 ml @ 40 mls/hr IV . Q24H [facility] Rx#:[id number] Intake, IV Titration 75 35.333 104.167 Amount Dextrose 5% in Water 1, 75 000 ml @ 75 mls/hr IV . [id number] [facility] with Sodium Bicarb (1 Meq/ml) 150 ml Rx#:[id number] Diltiazem 125 mg In 35.333 4.167 Sodium Chloride 0.9% 100 ml @ Per Protocol IV .Q0M [facility] Rx#:[id number] Magnesium Sulfate-D5w Pmx 100 1 gm In Dextrose/Water 1 100ml.bag @ 100 mls/hr IVPB Q1H [facility] Rx#: [id number] Oral 120 Output: Urine 600 650 Other: Voiding Method Diaper Diaper Diaper External Catheter External Catheter External Catheter # Voids 1 1 - Labs CBC & Chem 7: 05/28/23 04:55 05/28/23 04:55 Labs: Abnormal Lab Results - Last 24 Hours (Table) 05/27/23 05/27/23 05/27/23 Range/Units 11:05 16:15 20:21 RBC (3.80-5.40) m/uL MCV (80.0-100.0) fL Plt Count (150-450) k/uL Neutrophils # (1.3-7.7) k/uL Lymphocytes # (1.0-4.8) k/uL Sodium (137-145) mmol/L BUN (7-17) mg/dL Glucose (74-99) mg/dL POC Glucose (mg/dL) 151 H 145 H 149 H (70-110) mg/dL 05/28/23 05/28/23 05/28/23 Range/Units 04:55 04:55 06:13 RBC 3.35 L (3.80-5.40) m/uL MCV 102.3 H (80.0-100.0) fL Plt Count 100 L D (150-450) k/uL Neutrophils # 8.3 H (1.3-7.7) k/uL Lymphocytes # 0.7 L (1.0-4.8) k/uL Sodium 133 L (137-145) mmol/L BUN 18 H (7-17) mg/dL Glucose 140 H (74-99) mg/dL POC Glucose (mg/dL) 137 H (70-110) mg/dL
--- NOTE | 2023-05-28 10:53 | XR ---
EXAMINATION TYPE: XR chest 1V portable DATE OF EXAM: 05/28/2023 COMPARISON: 05/26/2023 HISTORY: Shortness of breath FINDINGS: There are bilateral pleural effusions with cardiomegaly and bibasilar infiltrate. There is a diffuse interstitial pattern. Atherosclerotic change aorta. IMPRESSION: 1. Correlate for CHF stable.
[2023-05-28] MEDS: LOSARTAN 25 MG TAB PO SCH ×2 (11:35→20:01)
[2023-05-28 11:45] LABS: Glucose,Whole Blood 160 mg/dL (70-110)
--- NOTE | 2023-05-28 12:27 | P.PN ---
Subjective Progress Note Date: 05/28/23 Principal diagnosis: Reason for follow-up is E coli pyelonephritis and bacteremia Patient is a 62 year old female with a past medical history significant for diabetes mellitus hypertension CA, seizure disorder presenting to the hospital for evaluation of right flank pain, patient has been diagnosed with right-sided pyelonephritis and did have E. coli bacteremia. Patient has been transferred to the ICU because of DTs On today's evaluation that is 05/28/2023, the patient remains to be afebrile , the patient is breathing comfortably on 3 L nasal cannula supplemental oxygen, the patient continue to have periods of confusion, Pt denies any chest pain or cough, no nausea/vomiting, no abdominal pain and no diarrhea has been reported by the nursing staff Patient white count is 10.2, creatinine is 0.75, abdominal ultrasound with no evidence of obstructive uropathy blood culture with gram-negative bacilli urine culture with E. coli that is sensitive pathogen Objective - Vital Signs Vital signs: Vital Signs Temp 97.7 F 05/28/23 08:00 Pulse 96 05/28/23 10:00 Resp 17 05/28/23 10:00 BP 186/93 05/28/23 10:00 Pulse Ox 98 05/28/23 10:00 FiO2 Intake & Output 05/27/23 05/28/23 05/28/23 18:59 06:59 18:59 Intake Total 585 515.333 384.167 Output Total 600 650 200 Balance -15 -134.667 184.167 Weight 99.7 kg Intake: IV 510 480 160 Dextrose 5% in Water 1, 150 000 ml @ 75 mls/hr IV . [id number] [facility] with Sodium Bicarb (1 Meq/ml) 150 ml Rx#:[id number] Sodium Chloride 0.9% 1, 360 480 160 000 ml @ 40 mls/hr IV . Q24H [facility] Rx#:[id number] Intake, IV Titration 75 35.333 104.167 Amount Dextrose 5% in Water 1, 75 000 ml @ 75 mls/hr IV . [id number] [facility]UL with Sodium Bicarb (1 Meq/ml) 150 ml Rx#:[id number] Diltiazem 125 mg In 35.333 4.167 Sodium Chloride 0.9% 100 ml @ Per Protocol IV .Q0M RAUL Rx#:[id number] Magnesium Sulfate-D5w Pmx 100 1 gm In Dextrose/Water 1 100ml.bag @ 100 mls/hr IVPB Q1H [facility] Rx#: [id number] Oral 120 Output: Urine 600 650 200 Other: Voiding Method Diaper Diaper Diaper External Catheter External Catheter External Catheter # Voids 1 1 1 - Exam GENERAL DESCRIPTION: A middle-aged female lying in bed in no distress RESPIRATORY SYSTEM: Unlabored breathing , decreased breath sound at the bases HEART: S1 S2 regular rate and rhythm , ABDOMEN: Soft , no tenderness EXTREMITIES: No edema feet - Labs CBC & Chem 7: 05/28/23 04:55 05/28/23 04:55 Labs: Abnormal Lab Results - Last 24 Hours (Table) 05/27/23 05/27/23 05/27/23 Range/Units 11:05 16:15 20:21 RBC (3.80-5.40) m/uL MCV (80.0-100.0) fL Plt Count (150-450) k/uL Neutrophils # (1.3-7.7) k/uL Lymphocytes # (1.0-4.8) k/uL Sodium (137-145) mmol/L BUN (7-17) mg/dL Glucose (74-99) mg/dL POC Glucose (mg/dL) 151 H 145 H 149 H (70-110) mg/dL 05/28/23 05/28/23 05/28/23 Range/Units 04:55 04:55 06:13 RBC 3.35 L (3.80-5.40) m/uL MCV 102.3 H (80.0-100.0) fL Plt Count 100 L D (150-450) k/uL Neutrophils # 8.3 H (1.3-7.7) k/uL Lymphocytes # 0.7 L (1.0-4.8) k/uL Sodium 133 L (137-145) mmol/L BUN 18 H (7-17) mg/dL Glucose 140 H (74-99) mg/dL POC Glucose (mg/dL) 137 H (70-110) mg/dL Assessment and Plan (1) Gram-negative bacteremia Current Visit: Yes Status: Acute Code(s): R78.81 - BACTEREMIA SNOMED Code(s): 557672705401 (2) Urinary tract infection Current Visit: Yes Status: Acute Code(s): N39.0 - URINARY TRACT INFECTION, SITE NOT SPECIFIED SNOMED Code(s): 44917946 Plan: 1patient presented to the hospital with sepsis in this patient who did have a elevated white count and tachycardia elevated lactic acid has been complaining of right flank pain positive UA likely complicated UTI 2blood culture positive for gram-negative bacilli source is likely urinary 3- ultrasound of the kidney and bladder did not show any obstructive uropathy 4patient remains to be afebrile white count is normal, we will continue the patient on Rocephin 2 g daily and monitor clinical course closely Dictation was produced using [employer] dictation software. please excuse any grammatical, word or spelling errors. Time with Patient: Less than 30
[2023-05-28] MEDS: DEXMEDETOMIDINE/0.9% NACL(PMX) 400 MCG in EMPTY BAG 1 BAG IV SCH ×2 (13:57→22:20)
--- NOTE | 2023-05-28 15:08 | P.PN ---
Subjective Progress Note Date: 05/28/23 This is 62-year-old female admitted with acute sepsis secondary to acute complicated UTI with E. coli and gram-negative bacillus bacteremia, alcohol withdrawals in a patient with known alcohol abuse, liver disease, chronic thrombocytopenia, acute renal failure, hyponatremia and multiple other medical issues. Maintained on CIWA protocol, Haldol and morphine. Somnolent, NPO. Maintained on ceftriaxone as per ID. pro calcitonin 29.6. Gentle IV fluid hydration, Renal function improving. T-max 99.8. Maintaining O2 sats in the high 90s on 2 L nasal cannula. Magnesium 1.6. Blood sugars controlled. 05/26/2023 maintained on ceftriaxone, blood cultures reporting E. coli . Afebrile, WBC 6.8. Maintaining O2 sats in the high 90s on 2 L nasal cannula. Chest x-ray reported to full development of bilateral lower lobe infiltrate and small effusion . Echo reported preserved LV function .Current CIWA score 6 on CIWA protocol. Received 3 mg of Ativan throughout the night, less agitated this morning. Potassium 3.3, magnesium 1.7, receiving electrolyte supplementation as per ICU replacement protocols. Sodium 128. Bicarbonate 16, on bicarb drip. BUN 25, creatinine 0.91. Urine drug screen positive for opiates. Blood sugars controlled. 05/27/2023 CIWA score @ 0600 8, received Ativan, morphine, current CIWA score 0. Sensorium improving. Maintained on bicarb drip with bicarbonate increased to 24. Sodium 1:30 Continues on ceftriaxone, afebrile, normal WBC. Maintaining O2 sats in the 90s on 2 L nasal cannula. Potassium 3.2, magnesium 1.6. 05/28/23 required Ativan 2 during the night .developed atrial fibrillation with RVR during the night, placed on Cardizem drip, recently weaned off this morning. Telemetry atrial fibrillation with controlled ventricular rate. Sensorium significantly improved. Maintained on gentle IV fluid hydration. Generalized weakness, consumed breakfast with assistance. Blood sugars controlled. Denies nausea, vomiting or diarrhea. Afebrile, normal WBC. Denies chest pain, palpitations or shortness of breath. Maintaining O2 sats in the high 90s on 3 L nasal cannula. Chest x-ray reporting bilateral pleural effusions with cardiomegaly, bibasilar infiltrate, diffuse interstitial pattern area sclerotic change aorta. Hemoglobin 11.6, platelets increased to 100. Sodium 133, potassium 3.9, bicarb 25, BUN 18, creatinine 0.75. Objective - Vital Signs Vital signs: Vital Signs Temp 98 F 05/28/23 12:00 Pulse 82 05/28/23 14:15 Resp 20 05/28/23 14:15 BP 185/113 05/28/23 14:15 Pulse Ox 98 05/28/23 14:15 FiO2 Intake & Output 05/27/23 05/28/23 05/28/23 18:59 06:59 18:59 Intake Total 585 515.333 694.167 Output Total 600 650 500 Balance -15 -134.667 194.167 Weight 99.7 kg 99.7 kg Intake: IV 510 480 320 Dextrose 5% in Water 1, 150 000 ml @ 75 mls/hr IV . [id number] RAUL with Sodium Bicarb (1 Meq/ml) 150 ml Rx#:[id number] Sodium Chloride 0.9% 1, 360 480 320 000 ml @ 40 mls/hr IV . Q24H [facility] Rx#:[id number] Intake, IV Titration 75 35.333 154.167 Amount Dextrose 5% in Water 1, 75 000 ml @ 75 mls/hr IV . [id number] RAUL with Sodium Bicarb (1 Meq/ml) 150 ml Rx#:[id number] Diltiazem 125 mg In 35.333 4.167 Sodium Chloride 0.9% 100 ml @ Per Protocol IV .Q0M [facility] Rx#:[id number] Magnesium Sulfate-D5w Pmx 100 1 gm In Dextrose/Water 1 100ml.bag @ 100 mls/hr IVPB Q1H [facility] Rx#: [id number] cefTRIAXone 2 gm In 50 Sodium Chloride 0.9% 50 ml @ 100 mls/hr IVPB Q24H [facility] Rx#:[id number] Oral 220 Output: Urine 600 650 500 Other: Voiding Method Diaper Diaper Diaper External Catheter External Catheter External Catheter # Voids 1 1 1 - Exam GENERAL EXAM: Alert and oriented 2, 62-year-old female, on 3 L nasal cannula, comfortable in no apparent distress. HEAD: Normocephalic. Pupils equal. NECK: Supple, no JVD. LUNGS: Unlabored, Equal air entry, bilateral bases diminished CVS: S1 and S2 normal with no audible murmur, regular rhythm. ABDOMEN: Soft, Nontender, no guarding or rigidity.+BS SKIN: No rashes, multiple scratches on lower extremities NERVOUS SYSTEM: CN II through XII grossly intact, no focal deficits, generalized weakness. EXTREMITIES: Mild peripheral edema. No clubbing, no cyanosis. - Labs CBC & Chem 7: 05/28/23 04:55 05/28/23 04:55 Labs: Abnormal Lab Results - Last 24 Hours (Table) 05/27/23 05/27/23 05/28/23 Range/Units 16:15 20:21 04:55 RBC (3.80-5.40) m/uL MCV (80.0-100.0) fL Plt Count (150-450) k/uL Neutrophils # (1.3-7.7) k/uL Lymphocytes # (1.0-4.8) k/uL Sodium 133 L (137-145) mmol/L BUN 18 H (7-17) mg/dL Glucose 140 H (74-99) mg/dL POC Glucose (mg/dL) 145 H 149 H (70-110) mg/dL 05/28/23 05/28/23 05/28/23 Range/Units 04:55 06:13 11:43 RBC 3.35 L (3.80-5.40) m/uL MCV 102.3 H (80.0-100.0) fL Plt Count 100 L D (150-450) k/uL Neutrophils # 8.3 H (1.3-7.7) k/uL Lymphocytes # 0.7 L (1.0-4.8) k/uL Sodium (137-145) mmol/L BUN (7-17) mg/dL Glucose (74-99) mg/dL POC Glucose (mg/dL) 137 H 160 H (70-110) mg/dL Assessment and Plan Assessment: Acute sepsis secondary to suspected acute complicated UTI with E. coli and E Coli bacteremia. Renal ultrasound did not report obstructive uropathy. Acute toxic metabolic encephalopathy secondary to the above as well as alcohol withdrawal Alcohol abuse, acute EtOH withdrawal, on [facility] protocol, status post Precedex. Thrombocytopenia, chronic secondary to the above as well as liver disease Acute renal failure, secondary to dehydration, improving A. fib with RVR, not on anticoagulation at this time secondary to thrombocytopenia Lactic acidosis Hypertension Hyponatremia Liver cirrhosis secondary to the above Diabetes mellitus Diabetic neuropathy History of CVA, TIA History of seizure disorder secondary to alcohol withdrawal History of marijuana use Ongoing nicotine dependence Anxiety, depression Plan:Continue on current medication regime ,monitoring and symptomatic treatment. Continue with CIWA protocol. Maintain antibiotics as per ID. sensorium significantly improved this morning, significant generalized weakness- PT/OT consult in place. Prognosis guarded given multiple complex medical issues. The impression and plan of care has been dictated as directed. : I performed a history and examination of this patient, discussed the same with the dictator. I agree with the dictator's note ,documented as a scribe. Any additional findings or plans will be noted.
[2023-05-28 16:54] LABS: Glucose,Whole Blood 126 mg/dL (70-110)
[2023-05-28] MEDS: DULoxetine HCL 60 MG CAPSULE.DR PO SCH (20:01)
[2023-05-28] MEDS: traZODone HCL 100 MG TAB PO SCH (20:01)
[2023-05-28 20:11] LABS: Glucose,Whole Blood 140 mg/dL (70-110)
[2023-05-29] MEDS: HYDROcodone/APAP 5-325MG 1 EACH TAB PO PRN ×2 (04:36→20:49)
[2023-05-29] MEDS ORDERED: hydrALAZINE HCL 20 MG/ML 1 ML VIAL IVP STA (05:44)
[2023-05-29 05:58] LABS: African American GFR (CKD) >90 (>60 ml/min/1.73 sqM); Anion Gap 9 mmol/L; Blood Urea Nitrogen 15 mg/dL (7-17); Calcium 8.9 mg/dL (8.4-10.2); Carbon Dioxide 23 mmol/L (22-30); Chloride 100 mmol/L (98-107); Glucose 125 mg/dL (74-99); Magnesium 1.4 mg/dL (1.6-2.3); Non-African American GFR(CKD) >90 (>60 ml/min/1.73 sqM); Sodium 132 mmol/L (137-145)
[2023-05-29 06:12] LABS: Basophils % (A) 0 %; Eosinophils % (A) 0 %; HCT 33.7 % (34.0-46.0); HGB 11.5 gm/dL (11.4-16.0); Lymphocytes # (A) 0.6 k/uL (1.0-4.8); Lymphocytes % (A) 8 %; MCH 34.7 pg (25.0-35.0); MCHC 34.2 g/dL (31.0-37.0); MCV 101.6 fL (80.0-100.0); Macrocytosis Slight; Mean Platelet Volume 10.1; Monocytes # (A) 0.4 k/uL (0-1.0); Monocytes % (A) 5 %; Neutrophils # (A) 6.5 k/uL (1.3-7.7); Neutrophils % (A) 85 %; Platelet Count 109 k/uL (150-450); RBC 3.32 m/uL (3.80-5.40); RDW 13.3 % (11.5-15.5); WBC 7.6 k/uL (3.8-10.6)
[2023-05-29 06:53] LABS: Glucose,Whole Blood 136 mg/dL (70-110)
[2023-05-29] MEDS: INSULIN ASPART (NovoLOG) 100 UNIT/ML VIAL SQ SCH ×4 (06:53→20:50)
[2023-05-29] MEDS: metFORMIN 500 MG TAB PO SCH ×2 (07:06→17:13)
[2023-05-29] MEDS: THIAMINE 100 MG TAB PO SCH (08:06)
[2023-05-29] MEDS: LOSARTAN 25 MG TAB PO SCH (08:07)
[2023-05-29] MEDS: METOPROLOL TARTRATE 50 MG TAB PO SCH ×2 (08:07→20:50)
[2023-05-29] MEDS: CALCIUM CARBONATE 500 MG CHEWABLE PO SCH (08:07)
[2023-05-29] MEDS: MAGNESIUM SULFATE-D5W PMX 1 GM in DEXTROSE/WATER 1 100ML.BAG IVPB SCH ×2 (08:07→11:19)
[2023-05-29] MEDS: APIXABAN 2.5 MG TABLET PO SCH ×2 (08:07→20:50)
[2023-05-29] MEDS: MULTIVITAMINS, THERA 1 EACH TAB PO SCH (08:07)
[2023-05-29] MEDS: PANTOPRAZOLE 40 MG/10 ML VIAL IV SCH (08:08)
[2023-05-29] MEDS: LORazepam 2 MG/ML INJ IV PRN ×2 (08:25→21:46)
--- NOTE | 2023-05-29 08:45 | P.PN ---
Subjective Progress Note Date: 05/29/23 This is a 62-year-old female patient who presented to the emergency room on 05/22/2023 with complaints of right flank pain. She had a four-day history of ongoing urgency and frequency and hematuria but was unable to see her primary doctor. She was having issues with nausea and vomiting as well. She has a history of diabetes mellitus, hypertension, diabetic neuropathy, CVA, alcoholic seizures, kidney stones chronic and ongoing tobacco dependence, marijuana use, daily heavy alcohol use admitting to a fifth of whiskey a day. Her last drink was earlier in the day on the . Computed tomography scan of the abdomen and pelvis revealed inflammation changes around the right kidney without evidence of obstructing calculus. Mild dilatation of the collecting system. Correlate for recently passed renal calculus. Nodular liver contour with caudate lobe hypertrophy findings compatible with cirrhosis. Ultrasound of the kidneys and bladder revealed no evidence of obstructive uropathy. She was admitted to the regular medical floor with urinary tract infection, acute kidney injury and dehydration. At approximately 6:00 last evening the patient developed hypertension, tachycardia, hallucinations and a CIWA scale score greater than 15. The patient was transferred to the intensive care unit and initiated on Precedex infusion. She is seen today in consultation. She is arousable, oriented, calm and cooperative. Remains on Precedex at 0.3 mcg/kg per hour. She has normal saline and 130 ML's per hour. She had issues with atrial fibrillation with a rapid ventricular response and required Cardizem drip and hypotension with norepinephrine briefly. Both drips are currently on pause. White count 7.2. Hemoglobin 12.0. Platelets 36,000. Arterial blood gases a PaO2 of 82, pCO2 29 and a pH of 7.44 and 44% FiO2. Sodium 125. Potassium 3.9. Bicarb 14. BUN 32. Creatinine 1.63. Glucose 127. She is on antibiotics in the form of ceftriaxone. On today's evaluation of 05/25/2023, the patient is being seen for a follow-up. This is a very pleasant 60-year-old female patient, who presented to us with a urine checked infection and sepsis. She is currently septic with a gram-negative bacillus in her blood and the blood cultures have confirmed the finding. CAT scan of the abdomen and pelvis that was done on 05/22/2023 showed inflammatory changes in the right kidney without evidence of any obstructive calculus. There is also mild dilatation of the collecting duct indicating pos sibility of a passed renal calculus. She also has underlying liver cirrhosis as the patient is an alcoholic. She has mild cardiomegaly. She has moderate atherosclerotic changes and a complex renal cysts. Ultrasound of the abdomen was also done that showed no evidence of any hydronephrosis. For now, the patient is on IV fluids and she is on 0.9 at 130 mL an hour. She has been adequately resuscitated. She is on no pressors at this point in time. Antibiotic coverage is with IV Rocephin and she is receiving 2 g every 24 hours At the same time, the patient is encephalopathic and she is interviewed and. She is alert and oriented 1. The patient is off Precedex for now. She is receiving Haldol and Ativan and morphine as needed. She is not awake enough to have her breakfast at this point in time. She is quite lethargic and somnolent. She is arousable however. She is moving all 4 extremities. She has a congested cough. The echoes at 4 with a hemoglobin of 11.1 and a platelet count is chronically low at 32 with some interval drop in the platelet count. No evidence of any bleeding. Had acute kidney injury is also improving. Creatinine is down to 1.23 from as high as 1.9 with a BUN of 32. Serum bicarb is at 16 with a sodium level of 129 and a potassium level of 4.4. Her last echocardiogram was on 03/11/2023 and that showed an ejection fraction of 60-65%. She has multiple scratches in her lower extremities and she states that she has 18 cats at home 05/26/2023, the patient remains confused. Occasional yelling out and agitation. Overnight, she received a total of 3 mg of Ativan and this morning she is essentially calm and quiet and relaxing. No signs of any respiratory distress. She remains on oxygen at 2 L nasal cannula. She remains on IV Rocephin r egarding her sepsis and the blood culture was positive with E. coli sensitive to IV Rocephin which is being on a 2 g every 24 hours. The white cell count at 6.8 with a hemoglobin of 12.1. Platelet counts were low and we're awaiting a follow-up platelet count from today. Sodium level is at 128 and the patient is currently on normal saline at the rate of 130 mL an hour. Potassium level needs to be replaced at 3.0 and the serum bicarb is at 60 with a BUN of 25 and a creatinine of 0.9. Ammonia level was less than 9. Echocardiogram was completed yesterday and the patient was found to have a preserved LV function with an EF of around 55-60%. No significant valvular abnormalities and the patient is not taking any form of pressors at this point in time. 05/27/2023, the patient remains lethargic. Less confused compared to yesterday. Upon frequent trials, she was able to state location and name and birthdate. She seems to be more improved compared to yesterday although she still having episodes of confusion. Overall, more cooperative compared to yesterday. He received a total of 2 mg of Ativan overnight. Remains on IV Rocephin. Afebrile. Hemodynamically stable. Still on a bicarb infusion rate of 75 mL an hour. Serum bicarbs up to 24. Sodium is at 1:30 with a potassium level of 3.2. The white cell count is 9 with a hemoglobin 12.7 and the patient's platelet count is at 60. She has been on oxygen and she is currently on 2 L nasal cannula. Oral intake is quite diminished at this point in time. There is still lethargic and sleepy. Nevertheless, she is arousable. She was able to have a full breakfast today. She was fed by the nursing staff. She has weakness in her upper extremities. Overall, quite debilitated and still profoundly weak. She sleeps a lot. No agitation. Overnight, the patient went into atrial fibrillation with rapid ventricular response. She was given Cardizem drip and she was also given by mouth Lopressor. A total of 100 mg P the rate is controlled for now. She remains itchy fibrillation. Note that echocardiogram has been essentially within normal limits and the patient has normal lipid ejection fraction. The patient is afebrile. She is hemodynamically stable. She is on IV fluids with normal saline at the rate of 40 mL an hour. The white cell cause of 10.2 with a hemoglobin of 11.6. BUN is 18 with a creatinine of 0.7 and sodium levels of 133 and a potassium level is at 3.9. Her most recent chest x-ray from 05/26/2023 showed small bilateral pleural effusions more so on the right. She is currently on oxygen at 4 L nasal cannula. She remains on IV Rocephin regarding her E. coli sepsis. Platelet counts continue to improve. On 05/29/23, the patient is being seen for a FU. She is still lethargic and encephalopathic. She is having some increased anxiety and panic attacks and episodes of restlessness and agitation. The patient remains on Precedex at 0.4 mcg/kg/m. On and off, she is also requiring Ativan. Weak, lethargic, yet arousable and communicates. She is able to drink water intake pills and food or ally. No aspiration. The white cell count of 7.6, hemoglobin 11.5 and a platelet count of 109. Sodium is at 132 with a BUN of 15 and a creatinine of 0.6. The chest x-ray shows limited bibasilar pulmonary infiltrates and effusion. There is diffuse increased interstitial markings bilaterally. The patient remains on IV Rocephin. Her current cardiac rhythm is A. fib with a controlled rate and the patient is currently on anticoagulation with Eliquis. As mentioned, she is able to take her all medications. This includes trazodone 200 mg at bedtime, Cymbalta 60 mg by mouth daily Objective - Vital Signs Vital signs: Vital Signs Temp 98 F 05/29/23 04:00 Pulse 67 05/29/23 07:00 Resp 23 05/29/23 07:00 BP 162/83 05/29/23 07:00 Pulse Ox 95 05/29/23 08:17 FiO2 Intake & Output 05/28/23 05/29/23 05/29/23 18:59 06:59 18:59 Intake Total 542.284 4545.691 45.442 Output Total 650 350 Balance 265.295 733.691 45.442 Weight 99.7 kg 99.8 kg Intake: IV 480 480 40 Sodium Chloride 0.9% 1, 480 480 40 000 ml @ 40 mls/hr IV . Q24H [facility] Rx#:[id number] Intake, IV Titration 215.295 103.691 5.442 Amount Dexmedetomidine/0.9% NaCl 61.128 103.691 5.442 (Pmx) 400 mcg In Empty Bag 1 bag @ 0.4 MCG/KG/HR 9.97 mls/hr IV .Q10H2M [facility] Rx#:[id number] Diltiazem 125 mg In 4.167 Sodium Chloride 0.9% 100 ml @ Per Protocol IV .Q0M [facility] Rx#:[id number] Magnesium Sulfate-D5w Pmx 100 1 gm In Dextrose/Water 1 100ml.bag @ 100 mls/hr IVPB Q1H [facility] Rx#: [id number] cefTRIAXone 2 gm In 50 Sodium Chloride 0.9% 50 ml @ 100 mls/hr IVPB Q24H [facility] Rx#:[id number] Oral 220 500 Output: Urine 650 350 Other: Voiding Method Diaper Diaper External Catheter External Catheter # Voids 1 - Exam GENERAL EXAM: Arousable, 62-year-old female, on 4 L nasal cannula, comfortable in no apparent distress. S till encephalopathic. Overnight, she got somewhat agitated and she was pulling and thrashing. She received Ativan again. This morning, she is able to follow commands. She had breakfast. She is quite sleepy. No signs of any significant respiratory distress at this point in time. She is on precedex HEAD: Normocephalic. EYES: Normal reaction of pupils, equal size. NOSE: Clear with pink turbinates. THROAT: No erythema or exudates. NECK: No masses, no JVD. CHEST: No chest wall deformity. LUNGS: Equal air entry with no crackles, wheeze, rhonchi or dullness. CVS: S1 and S2 normal with no audible murmur, regular rhythm. ABDOMEN: No hepatosplenomegaly, normal bowel sounds, no guarding or rigidity. SPINE: No scoliosis or deformity SKIN: No rashes CENTRAL NERVOUS SYSTEM: No focal deficits, tone is normal in all 4 extremities. Generalized global weakness all 4 extremities. EXTREMITIES: There is no peripheral edema. No clubbing, no cyanosis. Peripheral pulses are intact. - Labs CBC & Chem 7: 05/29/23 05:07 05/29/23 04:57 Labs: Abnormal Lab Results - Last 24 Hours (Table) 05/28/23 05/28/23 05/28/23 Range/Units 11:43 16:53 20:10 RBC (3.80-5.40) m/uL Hct (34.0-46.0) % MCV (80.0-100.0) fL Plt Count (150-450) k/uL Lymphocytes # (1.0-4.8) k/uL Sodium (137-145) mmol/L Glucose (74-99) mg/dL POC Glucose (mg/dL) 160 H 126 H 140 H (70-110) mg/dL Magnesium (1.6-2.3) mg/dL 05/29/23 05/29/23 05/29/23 Range/Units 04:57 05:07 06:51 RBC 3.32 L (3.80-5.40) m/uL Hct 33.7 L (34.0-46.0) % MCV 101.6 H (80.0-100.0) fL Plt Count 109 L (150-450) k/uL Lymphocytes # 0.6 L (1.0-4.8) k/uL Sodium 132 L (137-145) mmol/L Glucose 125 H (74-99) mg/dL POC Glucose (mg/dL) 136 H (70-110) mg/dL Magnesium 1.4 L (1.6-2.3) mg/dL Assessment and Plan Plan: Acute sepsis secondary to a UTI/E. coli in her urine and blood. Hemodynamically stable on IV Rocephin. No evidence of any hydronephrosis. Suspected right pyelonephritis. The patient remains on IV Rocephin 2 g every 24 hours and she is hypodermically stable and no fever and no leukocytosis E. coli sepsis, being treated with IV Rocephin Encephalopathy, multifactorial. Part related to her underlying sepsis and is same time the patient is likely withdrawing from alcoholism as the patient has been drinking a fifth of whiskey every day. Still requiring Ativan for ongoing confusion and episodic agitation, the patient continues to receive Ativan for agitation and she is on Precedex Acute alcohol withdrawal syndrome off Precedex infusion and ICU management. Patient admits to one fifth of whiskey a day New onset atrial fibrillation, the rate is controlled for now and the patient is off the Cardizem drip. The patient is on metoprolol 100 mg by mouth twice a da y. She is on Eliquis Hyponatremia secondary to above, recovered Cirrhosis secondary to above Acute kidney injury secondary to dehydration, improving, renal function is normalized Non-anion gap metabolic acidosis, recovered Chronic thrombocytopenia, likely alcohol induced versus chronic liver disease. Platelet counts have improved since yesterday Hypertension Diabetes mellitus Diabetic neuropathy History of CVA/TIA History of seizure secondary to alcohol withdrawal History of anxiety/depression History of marijuana use Chronic and ongoing tobacco dependence Plan Change the patient's stool normal saline at the rate of 40 mL an hour Continue IV Rocephin Continue Precedex Minimize the use of Ativan. Titrate FiO2 to maintain saturation above 90%, currently on 4L of oxygen by nasal cannula Continue anticoagulation with Eliquis regarding her atrial fibrillation We will continue to monitor in the ICU
[2023-05-29] MEDS ORDERED: LOSARTAN 25 MG TAB PO STA (09:49)
--- NOTE | 2023-05-29 09:51 | P.PN ---
Subjective Progress Note Date: 05/29/23 The patient is a 60-year-old female currently admitted to the hospital with urinary tract infection. She subsequently underwent EtOH withdrawal and developed atrial fibrillation with RVR. Initially she was started on Cardizem IV and converted back into sinus rhythm and once the patient became more alert, she is return to persistent atrial fibrillation. Heart rates have been recently well controlled over the last 48 hours, however hypertension has worsened. Patient was resting comfortably in bed at the time of my examination. No acute distress. GENERAL: Well-appearing, well-nourished and in no acute distress. NECK: Supple without JVD or thyromegaly. LUNGS: Breath sounds are coarse to auscultation bilaterally. Respiration equal and unlabored. Bilateral rhonchi. HEART: Irregular rate and rhythm without murmurs, rubs or gallops. S1 and S2 heard. EXTREMITIES: Normal range of motion, mild edema. No clubbing or cyanosis. Peripheral pulses intact and strong. TELEMETRY: Persistent atrial fibrillation LABS: WBC 7.6, hemoglobin 1.5, hematocrit 33.7, platelet 109, sodium 132, potassium 4.0, BUN 15, creatinine 0.63, magnesium 1.4 IMPRESSION: A. fib with RVR EtOH withdrawal Thrombocytopenia Urinary tract infection Electrolyte imbalance, hyponatremia and hypokalemia Hypertension PLAN: Maximize losartan Supplement electrolytes per protocol Poor candidate for long-term anticoagulation with her history of thrombocytopenia and EtOH abuse Further recommendations based upon clinical course I am dictating on behalf of Dr Julius Allred's history/physical and assessment/plan. Objective - Vital Signs Vital signs: Vital Signs Temp 98.0 F 05/29/23 08:00 Pulse 116 H 05/29/23 08:00 Resp 23 05/29/23 09:00 BP 146/114 05/29/23 09:00 Pulse Ox 95 05/29/23 08:17 FiO2 Intake & Output 05/28/23 05/29/23 05/29/23 18:59 06:59 18:59 Intake Total 364.531 4792.691 125.442 Output Total 650 350 200 Balance 265.295 733.691 -74.558 Weight 99.7 kg 99.8 kg Intake: IV 480 480 120 Sodium Chloride 0.9% 1, 480 480 120 000 ml @ 40 mls/hr IV . Q24H [facility] Rx#:[id number] Intake, IV Titration 215.295 103.691 5.442 Amount Dexmedetomidine/0.9% NaCl 61.128 103.691 5.442 (Pmx) 400 mcg In Empty Bag 1 bag @ 0.4 MCG/KG/HR 9.97 mls/hr IV .Q10H2M [facility] Rx#:[id number] Diltiazem 125 mg In 4.167 Sodium Chloride 0.9% 100 ml @ Per Protocol IV .Q0M [facility] Rx#:[id number] Magnesium Sulfate-D5w Pmx 100 1 gm In Dextrose/Water 1 100ml.bag @ 100 mls/hr IVPB Q1H [facility] Rx#: [id number] cefTRIAXone 2 gm In 50 Sodium Chloride 0.9% 50 ml @ 100 mls/hr IVPB Q24H [facility] Rx#:[id number] Oral 220 500 Output: Urine 650 350 200 Other: Voiding Method Diaper Diaper Diaper External Catheter External Catheter External Catheter # Voids 1 - Labs CBC & Chem 7: 05/29/23 05:07 05/29/23 04:57 Labs: Abnormal Lab Results - Last 24 Hours (Table) 05/28/23 05/28/23 05/28/23 Range/Units 11:43 16:53 20:10 RBC (3.80-5.40) m/uL Hct (34.0-46.0) % MCV (80.0-100.0) fL Plt Count (150-450) k/uL Lymphocytes # (1.0-4.8) k/uL Sodium (137-145) mmol/L Glucose (74-99) mg/dL POC Glucose (mg/dL) 160 H 126 H 140 H (70-110) mg/dL Magnesium (1.6-2.3) mg/dL 05/29/23 05/29/23 05/29/23 Range/Units 04:57 05:07 06:51 RBC 3.32 L (3.80-5.40) m/uL Hct 33.7 L (34.0-46.0) % MCV 101.6 H (80.0-100.0) fL Plt Count 109 L (150-450) k/uL Lymphocytes # 0.6 L (1.0-4.8) k/uL Sodium 132 L (137-145) mmol/L Glucose 125 H (74-99) mg/dL POC Glucose (mg/dL) 136 H (70-110) mg/dL Magnesium 1.4 L (1.6-2.3) mg/dL
[2023-05-29] MEDS: SODIUM CHLORIDE 0.9% 1,000 ML IV SCH (11:19)
[2023-05-29] MEDS: DEXMEDETOMIDINE/0.9% NACL(PMX) 400 MCG in EMPTY BAG 1 BAG IV SCH ×2 (11:21→20:00)
[2023-05-29 12:00] LABS: Glucose,Whole Blood 138 mg/dL (70-110)
--- NOTE | 2023-05-29 12:22 | P.PN ---
Subjective Progress Note Date: 05/29/23 Principal diagnosis: Reason for follow-up is E coli pyelonephritis and bacteremia Patient is a 62 year old female with a past medical history significant for diabetes mellitus hypertension NE, seizure disorder presenting to the hospital for evaluation of right flank pain, patient has been diagnosed with right-sided pyelonephritis and did have E. coli bacteremia. On today's evaluation that is 05/29/2023, the patient continues to be afebrile , the patient is breathing comfortably on 2 L nasal cannula oxygen, the patient symptom is slightly more awake and mentioned she wants to get out of here when asked specifically denies any chest pain or cough no vomiting no diarrhea has been reported Patient white count is 7.6, creatinine is 0.63, abdominal ultrasound with no evidence of obstructive uropathy blood culture with gram-negative bacilli urine culture with E. coli that is sensitive pathogen Objective - Vital Signs Vital signs: Vital Signs Temp 98.0 F 05/29/23 08:00 Pulse 79 05/29/23 11:00 Resp 26 H 05/29/23 11:00 BP 146/71 05/29/23 11:00 Pulse Ox 97 05/29/23 11:00 FiO2 Intake & Output 05/28/23 05/29/23 05/29/23 18:59 06:59 18:59 Intake Total 242.260 9767.691 228.629 Output Total 650 350 300 Balance 265.295 733.691 -71.371 Weight 99.7 kg 99.8 kg 99.8 kg Intake: IV 480 480 200 Sodium Chloride 0.9% 1, 480 480 200 000 ml @ 40 mls/hr IV . Q24H [facility] Rx#:[id number] Intake, IV Titration 215.295 103.691 28.629 Amount Dexmedetomidine/0.9% NaCl 61.128 103.691 28.629 (Pmx) 400 mcg In Empty Bag 1 bag @ 0.4 MCG/KG/HR 9.97 mls/hr IV .Q10H2M [facility] Rx#:[id number] Diltiazem 125 mg In 4.167 Sodium Chloride 0.9% 100 ml @ Per Protocol IV .Q0M [facility] Rx#:[id number] Magnesium Sulfate-D5w Pmx 100 1 gm In Dextrose/Water 1 100ml.bag @ 100 mls/hr IVPB Q1H [facility] Rx#: [id number] cefTRIAXone 2 gm In 50 Sodium Chloride 0.9% 50 ml @ 100 mls/hr IVPB Q24H [facility] Rx#:[id number] Oral 220 500 Output: Urine 650 350 300 Other: Voiding Method Diaper Diaper Diaper External Catheter External Catheter External Catheter # Voids 1 - Exam GENERAL DESCRIPTION: A middle-aged female lying in bed in no distress RESPIRATORY SYSTEM: Unlabored breathing , decreased breath sound at the bases HEART: S1 S2 regular rate and rhythm , ABDOMEN: Soft , no tenderness EXTREMITIES: No edema feet - Labs CBC & Chem 7: 05/29/23 05:07 05/29/23 04:57 Labs: Abnormal Lab Results - Last 24 Hours (Table) 05/28/23 05/28/23 05/29/23 Range/Units 16:53 20:10 04:57 RBC (3.80-5.40) m/uL Hct (34.0-46.0) % MCV (80.0-100.0) fL Plt Count (150-450) k/uL Lymphocytes # (1.0-4.8) k/uL Sodium 132 L (137-145) mmol/L Glucose 125 H (74-99) mg/dL POC Glucose (mg/dL) 126 H 140 H (70-110) mg/dL Magnesium 1.4 L (1.6-2.3) mg/dL 05/29/23 05/29/23 05/29/23 Range/Units 05:07 06:51 11:58 RBC 3.32 L (3.80-5.40) m/uL Hct 33.7 L (34.0-46.0) % MCV 101.6 H (80.0-100.0) fL Plt Count 109 L (150-450) k/uL Lymphocytes # 0.6 L (1.0-4.8) k/uL Sodium (137-145) mmol/L Glucose (74-99) mg/dL POC Glucose (mg/dL) 136 H 138 H (70-110) mg/dL Magnesium (1.6-2.3) mg/dL Assessment and Plan (1) Gram-negative bacteremia Current Visit: Yes Status: Acute Code(s): R78.81 - BACTEREMIA SNOMED Code(s): 967269656752 (2) Urinary tract infection Current Visit: Yes Status: Acute Code(s): N39.0 - URINARY TRACT INFECTION, SITE NOT SPECIFIED SNOMED Code(s): 00231462 Plan: 1patient presented to the hospital with sepsis in this patient who did have a elevated white count and tachycardia elevated lactic acid has been complaining of right flank pain positive UA likely complicated UTI 2blood culture positive for gram-negative bacilli source is likely urinary 3- ultrasound of the kidney and bladder did not show any obstructive uropathy 4patient did have some clinical improvement, the patient's afebrile white count is normal, 5-patient to continue with Rocephin 2 g daily and plan to finish therapy with oral antibiotics Dictation was produced using [employer] dictation software. please excuse any grammatical, word or spelling errors. Time with Patient: Less than 30
--- NOTE | 2023-05-29 15:21 | P.PN ---
Subjective Progress Note Date: 05/29/23 This is 62-year-old female admitted with acute sepsis secondary to acute complicated UTI with E. coli and gram-negative bacillus bacteremia, alcohol withdrawals in a patient with known alcohol abuse, liver disease, chronic thrombocytopenia, acute renal failure, hyponatremia and multiple other medical issues. Maintained on CIWA protocol, Haldol and morphine. Somnolent, NPO. Maintained on ceftriaxone as per ID. pro calcitonin 29.6. Gentle IV fluid hydration, Renal function improving. T-max 99.8. Maintaining O2 sats in the high 90s on 2 L nasal cannula. Magnesium 1.6. Blood sugars controlled. 05/26/2023 maintained on ceftriaxone, blood cultures reporting E. coli . Afebrile, WBC 6.8. Maintaining O2 sats in the high 90s on 2 L nasal cannula. Chest x-ray reported to full development of bilateral lower lobe infiltrate and small effusion . Echo reported preserved LV function .Current CIWA score 6 on CIWA protocol. Received 3 mg of Ativan throughout the night, less agitated this morning. Potassium 3.3, magnesium 1.7, receiving electrolyte supplementation as per ICU replacement protocols. Sodium 128. Bicarbonate 16, on bicarb drip. BUN 25, creatinine 0.91. Urine drug screen positive for opiates. Blood sugars controlled. 05/27/2023 CIWA score @ 0600 8, received Ativan, morphine, current CIWA score 0. Sensorium improving. Maintained on bicarb drip with bicarbonate increased to 24. Sodium 1:30 Continues on ceftriaxone, afebrile, normal WBC. Maintaining O2 sats in the 90s on 2 L nasal cannula. Potassium 3.2, magnesium 1.6. 05/28/23 required Ativan 2 during the night .developed atrial fibrillation with RVR during the night, placed on Cardizem drip, recently weaned off this morning. Telemetry atrial fibrillation with controlled ventricular rate. Sensorium significantly improved. Maintained on gentle IV fluid hydration. Generalized weakness, consumed breakfast with assistance. Blood sugars controlled. Denies nausea, vomiting or diarrhea. Afebrile, normal WBC. Denies chest pain, palpitations or shortness of breath. Maintaining O2 sats in the high 90s on 3 L nasal cannula. Chest x-ray reporting bilateral pleural effusions with cardiomegaly, bibasilar infiltrate, diffuse interstitial pattern area sclerotic change aorta. Hemoglobin 11.6, platelets increased to 100. Sodium 133, potassium 3.9, bicarb 25, BUN 18, creatinine 0.75. 05/29/2023 did not require Ativan throughout the night but this morning increased anxiety, restlessness-receiving IV Ativan. She needs on Precedex. Telemetry atrial fibrillation with controlled ventricular rate, anticoagulated with Eliquis. Afebrile, normal WBC. Blood sugars controlled. Maintained on IV ceftriaxone. Maintaining O2 sats in the 90s on 4 L nasal cannula. Objective - Vital Signs Vital signs: Vital Signs Temp 98.2 F 05/29/23 12:00 Pulse 79 05/29/23 14:00 Resp 13 05/29/23 14:00 BP 130/65 05/29/23 14:00 Pulse Ox 94 L 05/29/23 14:00 FiO2 Intake & Output 05/28/23 05/29/23 05/29/23 18:59 06:59 18:59 Intake Total 744.009 9082.691 348.629 Output Total 650 350 400 Balance 265.295 733.691 -51.371 Weight 99.7 kg 99.8 kg 99.8 kg Intake: IV 480 480 320 Sodium Chloride 0.9% 1, 480 480 320 000 ml @ 40 mls/hr IV . Q24H [facility]UL Rx#:[id number] Intake, IV Titration 215.295 103.691 28.629 Amount Dexmedetomidine/0.9% NaCl 61.128 103.691 28.629 (Pmx) 400 mcg In Empty Bag 1 bag @ 0.4 MCG/KG/HR 9.97 mls/hr IV .Q10H2M [facility] Rx#:[id number] Diltiazem 125 mg In 4.167 Sodium Chloride 0.9% 100 ml @ Per Protocol IV .Q0M RAUL Rx#:[id number] Magnesium Sulfate-D5w Pmx 100 1 gm In Dextrose/Water 1 100ml.bag @ 100 mls/hr IVPB Q1H [facility]UL Rx#: [id number] cefTRIAXone 2 gm In 50 Sodium Chloride 0.9% 50 ml @ 100 mls/hr IVPB Q24H [facility]UL Rx#:[id number] Oral 220 500 Output: Urine 650 350 400 Other: Voiding Method Diaper Diaper Diaper External Catheter External Catheter External Catheter # Voids 1 - Exam GENERAL EXAM: Alert and oriented 2, 62-year-old female, on 3 L nasal cannula, anxious. HEAD: Normocephalic. Pupils equal. NECK: Supple, no JVD. LUNGS: Unlabored, Equal air entry, bilateral bases diminished CVS: S1 and S2 normal with no audible murmur, regular rhythm. ABDOMEN: Soft, Nontender, no guarding or rigidity.+BS SKIN: No rashes, warm and dry NERVOUS SYSTEM: CN II through XII grossly intact, no focal deficits, generalized weakness. EXTREMITIES: Mild peripheral edema. No clubbing, no cyanosis. - Labs CBC & Chem 7: 05/29/23 05:07 05/29/23 04:57 Labs: Abnormal Lab Results - Last 24 Hours (Table) 05/28/23 05/28/23 05/29/23 Range/Units 16:53 20:10 04:57 RBC (3.80-5.40) m/uL Hct (34.0-46.0) % MCV (80.0-100.0) fL Plt Count (150-450) k/uL Lymphocytes # (1.0-4.8) k/uL Sodium 132 L (137-145) mmol/L Glucose 125 H (74-99) mg/dL POC Glucose (mg/dL) 126 H 140 H (70-110) mg/dL Magnesium 1.4 L (1.6-2.3) mg/dL 05/29/23 05/29/23 05/29/23 Range/Units 05:07 06:51 11:58 RBC 3.32 L (3.80-5.40) m/uL Hct 33.7 L (34.0-46.0) % MCV 101.6 H (80.0-100.0) fL Plt Count 109 L (150-450) k/uL Lymphocytes # 0.6 L (1.0-4.8) k/uL Sodium (137-145) mmol/L Glucose (74-99) mg/dL POC Glucose (mg/dL) 136 H 138 H (70-110) mg/dL Magnesium (1.6-2.3) mg/dL Assessment and Plan Assessment: Acute sepsis secondary to suspected acute complicated UTI with E. coli and E Coli bacteremia. Renal ultrasound did not report obstructive uropathy. Acute toxic metabolic encephalopathy secondary to the above as well as alcohol withdrawal Alcohol abuse, acute EtOH withdrawal, on CIWA protocol, status post Precedex. Thrombocytopenia, chronic secondary to the above as well as liver disease Acute renal failure, secondary to dehydration, improving A. fib with RVR, not on anticoagulation at this time secondary to thrombocytope randi Lactic acidosis Hypertension Hyponatremia Liver cirrhosis secondary to the above Diabetes mellitus Diabetic neuropathy History of CVA, TIA History of seizure disorder secondary to alcohol withdrawal History of marijuana use Ongoing nicotine dependence Anxiety, depression Plan:Continue on current medication regime ,monitoring and symptomatic treatment. Continue with CIWA protocol. Antibiotics as per ID Prognosis guarded given multiple complex medical issues. The impression and plan of care has been dictated as directed. : I performed a history and examination of this patient, discussed the same with the dictator. I agree with the dictator's note ,documented as a scribe. Any additional findings or plans will be noted.
[2023-05-29 16:13] LABS: Glucose,Whole Blood 129 mg/dL (70-110)
[2023-05-29] MEDS ORDERED: FUROSEMIDE 10 MG/ML 4 ML VIAL IV STA (19:19)
[2023-05-29] MEDS ORDERED: DILTIAZEM DRIP BOLUS FROM BAG 1 MG SOLN IV ONE (20:18)
[2023-05-29 20:23] LABS: Glucose,Whole Blood 182 mg/dL (70-110)
[2023-05-29] MEDS: LOSARTAN 50 MG TAB PO SCH (20:50)
[2023-05-29] MEDS: DULoxetine HCL 60 MG CAPSULE.DR PO SCH (20:50)
[2023-05-29] MEDS: traZODone HCL 100 MG TAB PO SCH (20:50)
[2023-05-30] MEDS: DEXMEDETOMIDINE/0.9% NACL(PMX) 400 MCG in EMPTY BAG 1 BAG IV SCH ×3 (04:53→20:35)
[2023-05-30 06:26] LABS: Basophils % (A) 0 %; Eosinophils % (A) 0 %; HCT 34.5 % (34.0-46.0); HGB 11.7 gm/dL (11.4-16.0); Lymphocytes # (A) 0.7 k/uL (1.0-4.8); Lymphocytes % (A) 10 %; MCV 100.1 fL (80.0-100.0); Mean Platelet Volume 9.4; Monocytes # (A) 0.4 k/uL (0-1.0); Monocytes % (A) 6 %; Neutrophils # (A) 5.5 k/uL (1.3-7.7); Neutrophils % (A) 82 %; Platelet Count 111 k/uL (150-450); RBC 3.45 m/uL (3.80-5.40); RDW 13.5 % (11.5-15.5); WBC 6.7 k/uL (3.8-10.6)
[2023-05-30 06:36] LABS: Glucose,Whole Blood 151 mg/dL (70-110)
[2023-05-30 06:37] LABS: African American GFR (CKD) >90 (>60 ml/min/1.73 sqM); Anion Gap 6 mmol/L; Blood Urea Nitrogen 12 mg/dL (7-17); Calcium 8.9 mg/dL (8.4-10.2); Carbon Dioxide 28 mmol/L (22-30); Chloride 96 mmol/L (98-107); Glucose 150 mg/dL (74-99); Magnesium 1.4 mg/dL (1.6-2.3); Non-African American GFR(CKD) >90 (>60 ml/min/1.73 sqM); Potassium 3.5 mmol/L (3.5-5.1); Sodium 130 mmol/L (137-145)
[2023-05-30] MEDS: metFORMIN 500 MG TAB PO SCH ×2 (06:42→17:53)
[2023-05-30] MEDS: INSULIN ASPART (NovoLOG) 100 UNIT/ML VIAL SQ SCH ×4 (06:42→20:04)
--- NOTE | 2023-05-30 08:11 | P.PN ---
Subjective Progress Note Date: 05/30/23 This is a 62-year-old female patient who presented to the emergency room on 05/22/2023 with complaints of right flank pain. She had a four-day history of ongoing urgency and frequency and hematuria but was unable to see her primary doctor. She was having issues with nausea and vomiting as well. She has a history of diabetes mellitus, hypertension, diabetic neuropathy, CVA, alcoholic seizures, kidney stones chronic and ongoing tobacco dependence, marijuana use, daily heavy alcohol use admitting to a fifth of whiskey a day. Her last drink was earlier in the day on the . Computed tomography scan of the abdomen and pelvis revealed inflammation changes around the right kidney without evidence of obstructing calculus. Mild dilatation of the collecting system. Correlate for recently passed renal calculus. Nodular liver contour with caudate lobe hypertrophy findings compatible with cirrhosis. Ultrasound of the kidneys and bladder revealed no evidence of obstructive uropathy. She was admitted to the regular medical floor with urinary tract infection, acute kidney injury and dehydration. At approximately 6:00 last evening the patient developed hypertension, tachycardia, hallucinations and a CIWA scale score greater than 15. The patient was transferred to the intensive care unit and initiated on Precedex infusion. She is seen today in consultation. She is arousable, oriented, calm and cooperative. Remains on Precedex at 0.3 mcg/kg per hour. She has normal saline and 130 ML's per hour. She had issues with atrial fibrillation with a rapid ventricular response and required Cardizem drip and hypotension with norepinephrine briefly. Both drips are currently on pause. White count 7.2. Hemoglobin 12.0. Platelets 36,000. Arterial blood gases a PaO2 of 82, pCO2 29 and a pH of 7.44 and 44% FiO2. Sodium 125. Potassium 3.9. Bicarb 14. BUN 32. Creatinine 1.63. Glucose 127. She is on antibiotics in the form of ceftriaxone. On today's evaluation of 05/25/2023, the patient is being seen for a follow-up. This is a very pleasant 60-year-old female patient, who presented to us with a urine checked infection and sepsis. She is currently septic with a gram-negative bacillus in her blood and the blood cultures have confirmed the finding. CAT scan of the abdomen and pelvis that was done on 05/22/2023 showed inflammatory changes in the right kidney without evidence of any obstructive calculus. There is also mild dilatation of the collecting duct indicating pos sibility of a passed renal calculus. She also has underlying liver cirrhosis as the patient is an alcoholic. She has mild cardiomegaly. She has moderate atherosclerotic changes and a complex renal cysts. Ultrasound of the abdomen was also done that showed no evidence of any hydronephrosis. For now, the patient is on IV fluids and she is on 0.9 at 130 mL an hour. She has been adequately resuscitated. She is on no pressors at this point in time. Antibiotic coverage is with IV Rocephin and she is receiving 2 g every 24 hours At the same time, the patient is encephalopathic and she is interviewed and. She is alert and oriented 1. The patient is off Precedex for now. She is receiving Haldol and Ativan and morphine as needed. She is not awake enough to have her breakfast at this point in time. She is quite lethargic and somnolent. She is arousable however. She is moving all 4 extremities. She has a congested cough. The echoes at 4 with a hemoglobin of 11.1 and a platelet count is chronically low at 32 with some interval drop in the platelet count. No evidence of any bleeding. Had acute kidney injury is also improving. Creatinine is down to 1.23 from as high as 1.9 with a BUN of 32. Serum bicarb is at 16 with a sodium level of 129 and a potassium level of 4.4. Her last echocardiogram was on 03/11/2023 and that showed an ejection fraction of 60-65%. She has multiple scratches in her lower extremities and she states that she has 18 cats at home 05/26/2023, the patient remains confused. Occasional yelling out and agitation. Overnight, she received a total of 3 mg of Ativan and this morning she is essentially calm and quiet and relaxing. No signs of any respiratory distress. She remains on oxygen at 2 L nasal cannula. She remains on IV Rocephin r egarding her sepsis and the blood culture was positive with E. coli sensitive to IV Rocephin which is being on a 2 g every 24 hours. The white cell count at 6.8 with a hemoglobin of 12.1. Platelet counts were low and we're awaiting a follow-up platelet count from today. Sodium level is at 128 and the patient is currently on normal saline at the rate of 130 mL an hour. Potassium level needs to be replaced at 3.0 and the serum bicarb is at 60 with a BUN of 25 and a creatinine of 0.9. Ammonia level was less than 9. Echocardiogram was completed yesterday and the patient was found to have a preserved LV function with an EF of around 55-60%. No significant valvular abnormalities and the patient is not taking any form of pressors at this point in time. 05/27/2023, the patient remains lethargic. Less confused compared to yesterday. Upon frequent trials, she was able to state location and name and birthdate. She seems to be more improved compared to yesterday although she still having episodes of confusion. Overall, more cooperative compared to yesterday. He received a total of 2 mg of Ativan overnight. Remains on IV Rocephin. Afebrile. Hemodynamically stable. Still on a bicarb infusion rate of 75 mL an hour. Serum bicarbs up to 24. Sodium is at 1:30 with a potassium level of 3.2. The white cell count is 9 with a hemoglobin 12.7 and the patient's platelet count is at 60. She has been on oxygen and she is currently on 2 L nasal cannula. Oral intake is quite diminished at this point in time. There is still lethargic and sleepy. Nevertheless, she is arousable. She was able to have a full breakfast today. She was fed by the nursing staff. She has weakness in her upper extremities. Overall, quite debilitated and still profoundly weak. She sleeps a lot. No agitation. Overnight, the patient went into atrial fibrillation with rapid ventricular response. She was given Cardizem drip and she was also given by mouth Lopressor. A total of 100 mg P the rate is controlled for now. She remains itchy fibrillation. Note that echocardiogram has been essentially within normal limits and the patient has normal lipid ejection fraction. The patient is afebrile. She is hemodynamically stable. She is on IV fluids with normal saline at the rate of 40 mL an hour. The white cell cause of 10.2 with a hemoglobin of 11.6. BUN is 18 with a creatinine of 0.7 and sodium levels of 133 and a potassium level is at 3.9. Her most recent chest x-ray from 05/26/2023 showed small bilateral pleural effusions more so on the right. She is currently on oxygen at 4 L nasal cannula. She remains on IV Rocephin regarding her E. coli sepsis. Platelet counts continue to improve. On 05/29/23, the patient is being seen for a FU. She is still lethargic and encephalopathic. She is having some increased anxiety and panic attacks and episodes of restlessness and agitation. The patient remains on Precedex at 0.4 mcg/kg/m. On and off, she is also requiring Ativan. Weak, lethargic, yet arousable and communicates. She is able to drink water intake pills and food or ally. No aspiration. The white cell count of 7.6, hemoglobin 11.5 and a platelet count of 109. Sodium is at 132 with a BUN of 15 and a creatinine of 0.6. The chest x-ray shows limited bibasilar pulmonary infiltrates and effusion. There is diffuse increased interstitial markings bilaterally. The patient remains on IV Rocephin. Her current cardiac rhythm is A. fib with a controlled rate and the patient is currently on anticoagulation with Eliquis. As mentioned, she is able to take her all medications. This includes trazodone 200 mg at bedtime, Cymbalta 60 mg by mouth daily on 05/30/23, the patient seems to be much more awake and communicating. Overnight, she required 1 mg of Ativan and we restarted back on Precedex which is currently running at 0.8 mcg/kg/h. She is doing much more comfortable at this point in time. She is on oxygen at 2 L nasal cannula. Her pulse ox is 97%. She did encounter elevated blood pressure and we note that she was in excess of fluid overload. She was given a dose of Lasix 40 mg IV and she produced approximately 2 L of urine output immediately. She also encountered A. fib/RVR yesterday. She was placed on Cardizem drip for rate control and she is currently off the Cardizem drip. She remains in atrial fibrillation with a controlled rate at this point in time. Blood work from today shows abdominal discomfort 6.7, hemoglobin 11.7 and platelet count is 111. BUN is 12 with a creatinine 0.6 and a sodium level is at 1:30. She remains on IV Rocephin regarding her UTI sepsis. She is afebrile. She is on no pressors at this point. IV fluids are KVO. She is tolerating diet. She is on anticoagulation with Eliquis 2.5 mg twice a day. She is also on Cymbalta 60 mg by mouth daily, and trazodone 200 mg at bedtime. She is on metoprolol 100 mg by mouth twice a day for rate control. Cardizem drip is discontinued for now. Objective - Vital Signs Vital signs: Vital Signs Temp 97.4 F L 05/30/23 04:00 Pulse 83 05/30/23 07:00 Resp 22 05/30/23 07:00 BP 168/93 05/30/23 07:00 Pulse Ox 97 05/30/23 07:00 FiO2 Intake & Output 05/29/23 05/30/23 05/30/23 18:59 06:59 18:59 Intake Total 512.623 359.689 10.178 Output Total 500 2050 Balance 12.623 -1690.311 10.178 Weight 99.8 kg 99.1 kg Intake: IV 440 Sodium Chloride 0.9% 1, 440 000 ml @ 40 mls/hr IV . Q24H [facility] Rx#:[id number] Intake, IV Titration 72.623 109.689 10.178 Amount Dexmedetomidine/0.9% NaCl 72.623 78.023 10.178 (Pmx) 400 mcg In Empty Bag 1 bag @ 0.4 MCG/KG/HR 9.97 mls/hr IV .Q10H2M [facility] Rx#:[id number] Diltiazem 125 mg In 31.666 Sodium Chloride 0.9% 100 ml @ Per Protocol IV .Q0M [facility]UL Rx#:[id number] Oral 250 Output: Urine 500 2050 Other: Voiding Method Diaper External Catheter External Catheter # Voids 1 1 - Exam GENERAL EXAM: Arousable, 62-year-old female, on 2 L nasal cannula, comfortable in no apparent distress. She is on precedex HEAD: Normocephalic. EYES: Normal reaction of pupils, equal size. NOSE: Clear with pink turbinates. THROAT: No erythema or exudates. NECK: No masses, no JVD. CHEST: No chest wall deformity. LUNGS: Equal air entry with no crackles, wheeze, rhonchi or dullness. CVS: S1 and S2 normal with no audible murmur, regular rhythm. ABDOMEN: No hepatosplenomegaly, normal bowel sounds, no guarding or rigidity. SPINE: No scoliosis or deformity SKIN: No rashes CENTRAL NERVOUS SYSTEM: No focal deficits, tone is normal in all 4 extremities. Generalized global weakness all 4 extremities. EXTREMITIES: There is no peripheral edema. No clubbing, no cyanosis. Peripheral pulses are intact. - Labs CBC & Chem 7: 05/30/23 06:01 05/30/23 05:56 Labs: Abnormal Lab Results - Last 24 Hours (Table) 05/29/23 05/29/23 05/29/23 Range/Units 11:58 16:12 20:21 RBC (3.80-5.40) m/uL MCV (80.0-100.0) fL Plt Count (150-450) k/uL Lymphocytes # (1.0-4.8) k/uL Sodium (137-145) mmol/L Chloride (98-107) mmol/L Glucose (74-99) mg/dL POC Glucose (mg/dL) 138 H 129 H 182 H (70-110) mg/dL Magnesium (1.6-2.3) mg/dL 05/30/23 05/30/23 05/30/23 Range/Units 05:56 06:01 06:34 RBC 3.45 L (3.80-5.40) m/uL MCV 100.1 H (80.0-100.0) fL Plt Count 111 L (150-450) k/uL Lymphocytes # 0.7 L (1.0-4.8) k/uL Sodium 130 L (137-145) mmol/L Chloride 96 L (98-107) mmol/L Glucose 150 H (74-99) mg/dL POC Glucose (mg/dL) 151 H (70-110) mg/dL Magnesium 1.4 L (1.6-2.3) mg/dL Assessment and Plan Plan: Acute sepsis secondary to a UTI/E. coli in her urine and blood. Hemodynamically stable on IV Rocephin. No evidence of any hydronephrosis. Suspected right pyelonephritis. The patient remains on IV Rocephin 2 g every 24 hours and she is hypodermically stable and no fever and no leukocytosis E. coli sepsis, being treated with IV Rocephin Encephalopathy, multifactorial. The patient continues to have episodes of encephalopathy related to delirium tremens and sepsis induced encephalopathy. I believe that most of her symptoms are related to delirium tremens. Ativan was utilized and the patient is currently off Precedex. She does better on Precedex and this is running at 0.8 mcg/kg/m. I made recommendations to limit the Ativan use and utilize Precedex as needed and titrate the dose. This morning, her level of alertness is improved and the patient is communicating. No signs of any respiratory suppression. Acute alcohol withdrawal syndrome off Precedex infusion and ICU management. Patient admits to one fifth of whiskey a day New onset atrial fibrillation, the rate is controlled for now and the patient is off the Cardizem drip. The patient is on metoprolol 100 mg by mouth twice a day. She is on Eliquis Hyponatremia secondary to above, recovered Cirrhosis secondary to above Acute kidney injury secondary to dehydration, improving, renal function is normalized Non-anion gap metabolic acidosis, recovered Chronic thrombocytopenia, likely alcohol induced versus chronic liver disease. Platelet counts have improved since yesterday Hypertension Diabetes mellitus Diabetic neuropathy History of CVA/TIA History of seizure secondary to alcohol withdrawal History of anxiety/depression History of marijuana use Chronic and ongoing tobacco dependence Hypertension, improved and the patient's blood pressure is more stable, responded to Lasix. Plan Change the patient's IVF to KVO tolerating diet Continue IV Rocephin Continue Precedex and titrate Minimize the use of Ativan. Titrate FiO2 to maintain saturation above 90%, currently on 2L of oxygen by nasal cannula Lasix 20 IVP x1 Continue anticoagulation with Eliquis regarding her atrial fibrillation Continue metoprolol 100 mg by mouth twice a day. Heart rate is under better control. Provide incentive spirometer Keep the patient ICU for now for further monitoring. We will continue to monitor in the ICU
[2023-05-30] MEDS ORDERED: FUROSEMIDE 10 MG/ML 2 ML VIAL IV ONE (08:15)
[2023-05-30] MEDS: APIXABAN 2.5 MG TABLET PO SCH ×2 (11:06→19:56)
[2023-05-30] MEDS: METOPROLOL TARTRATE 50 MG TAB PO SCH ×2 (11:06→19:55)
[2023-05-30] MEDS: THIAMINE 100 MG TAB PO SCH (11:06)
[2023-05-30] MEDS: MULTIVITAMINS, THERA 1 EACH TAB PO SCH (11:06)
[2023-05-30] MEDS: CALCIUM CARBONATE 500 MG CHEWABLE PO SCH (11:07)
[2023-05-30] MEDS: POTASSIUM CHLORIDE ER 20 MEQ TAB.ER PO SCH ×2 (11:07→12:51)
[2023-05-30] MEDS: PANTOPRAZOLE 40 MG/10 ML VIAL IV SCH (11:07)
[2023-05-30 11:12] LABS: Glucose,Whole Blood 155 mg/dL (70-110)
--- NOTE | 2023-05-30 11:13 | P.PN ---
Subjective Progress Note Date: 05/30/23 Principal diagnosis: Reason for follow-up is E coli pyelonephritis and bacteremia Patient is a 62 year old female with a past medical history significant for diabetes mellitus hypertension DC, seizure disorder presenting to the hospital for evaluation of right flank pain, patient has been diagnosed with right-sided pyelonephritis and did have E. coli bacteremia. On today's evaluation that is 05/30/2023, the patient remains to be afebrile , the patient is breathing comfortably on 2 L nasal cannula oxygen, the patient is sleepy , lethargic and didnot answer any questions Patient white count is 6.7, creatinine is 0.64, abdominal ultrasound with no evidence of obstructive uropathy blood culture with gram-negative bacilli urine culture with E. coli that is sensitive pathogen Objective - Vital Signs Vital signs: Vital Signs Temp 97.4 F L 05/30/23 04:00 Pulse 83 05/30/23 07:00 Resp 22 05/30/23 07:00 BP 168/93 05/30/23 07:00 Pulse Ox 97 05/30/23 07:00 FiO2 Intake & Output 05/29/23 05/30/23 05/30/23 18:59 06:59 18:59 Intake Total 512.623 359.689 10.178 Output Total 500 2050 Balance 12.623 -1690.311 10.178 Weight 99.8 kg 99.1 kg Intake: IV 440 Sodium Chloride 0.9% 1, 440 000 ml @ 40 mls/hr IV . Q24H [facility] Rx#:[id number] Intake, IV Titration 72.623 109.689 10.178 Amount Dexmedetomidine/0.9% NaCl 72.623 78.023 10.178 (Pmx) 400 mcg In Empty Bag 1 bag @ 0.4 MCG/KG/HR 9.97 mls/hr IV .Q10H2M [facility] Rx#:[id number] Diltiazem 125 mg In 31.666 Sodium Chloride 0.9% 100 ml @ Per Protocol IV .Q0M [facility] Rx#:[id number] Oral 250 Output: Urine 500 2050 Other: Voiding Method Diaper External Catheter External Catheter # Voids 1 1 - Exam GENERAL DESCRIPTION: A middle-aged female lying in bed in no distress RESPIRATORY SYSTEM: Unlabored breathing , decreased breath sound at the bases HEART: S1 S2 regular rate and rhythm , ABDOMEN: Soft , no tenderness EXTREMITIES: No edema feet - Labs CBC & Chem 7: 05/30/23 06:01 05/30/23 05:56 Labs: Abnormal Lab Results - Last 24 Hours (Table) 05/29/23 05/29/23 05/29/23 Range/Units 11:58 16:12 20:21 RBC (3.80-5.40) m/uL MCV (80.0-100.0) fL Plt Count (150-450) k/uL Lymphocytes # (1.0-4.8) k/uL Sodium (137-145) mmol/L Chloride (98-107) mmol/L Glucose (74-99) mg/dL POC Glucose (mg/dL) 138 H 129 H 182 H (70-110) mg/dL Magnesium (1.6-2.3) mg/dL 05/30/23 05/30/23 05/30/23 Range/Units 05:56 06:01 06:34 RBC 3.45 L (3.80-5.40) m/uL MCV 100.1 H (80.0-100.0) fL Plt Count 111 L (150-450) k/uL Lymphocytes # 0.7 L (1.0-4.8) k/uL Sodium 130 L (137-145) mmol/L Chloride 96 L (98-107) mmol/L Glucose 150 H (74-99) mg/dL POC Glucose (mg/dL) 151 H (70-110) mg/dL Magnesium 1.4 L (1.6-2.3) mg/dL Assessment and Plan (1) Gram-negative bacteremia Current Visit: Yes Status: Acute Code(s): R78.81 - BACTEREMIA SNOMED Code(s): 841704947060 (2) Urinary tract infection Current Visit: Yes Status: Acute Code(s): N39.0 - URINARY TRACT INFECTION, SITE NOT SPECIFIED SNOMED Code(s): 60102827 Plan: 1patient presented to the hospital with sepsis in this patient who did have a elevated white count and tachycardia elevated lactic acid has been complaining of right flank pain positive UA likely complicated UTI 2blood culture positive for gram-negative bacilli source is likely urinary 3- ultrasound of the kidney and bladder did not show any obstructive uropathy 4patient remains to be afebrile white count is normal, 5-patient to continue with current treatment of Rocephin 2 g daily and monitor clinical course closely Dictation was produced using [employer] dictation software. please excuse any grammatical, word or spelling errors. Time with Patient: Less than 30
--- NOTE | 2023-05-30 12:03 | P.PN ---
Subjective Progress Note Date: 05/30/23 This is Alen Gaines NP, I'm dictating on behalf of Dr. Allred's H&P and A&P. Patient was interviewed and examined. Patient is a pleasant 62-year-old female who presented to the hospital with a urinary tract infection and dehydration. Patient underwent EtOH withdrawal and developed A. fib with RVR. Patient was initially started on IV Cardizem which converted her back to normal sinus rhythm, but when she became more alert she returned to persistent atrial fibrillation. Heart rates in well-controlled, however hypertension had worsened. We had started the patient on losartan, which has been minimally effective at this time. Patient reports this morning she is very tired, stating she was up all night. She is denying chest pain, shortness of breath, and noticeable heart palpitations at this time. GENERAL: Well-appearing, well-nourished and in no acute distress. NECK: Supple without JVD or thyromegaly. LUNGS: Breath sounds clear to auscultation bilaterally. Respiration equal and unlabored. No wheezes, rales or rhonchi. HEART: Regular rate and irregular rhythm without murmurs, rubs or gallops. S1 and S2 heard. EXTREMITIES: Normal range of motion, no edema. No clubbing or cyanosis. Peripheral pulses intact and strong. VITALS: Temp 98.2, pulse 73, respirations 21, blood pressure 155/78, O2 saturation 99% on 2 L TELEMETRY: Atrial fibrillation with controlled ventricular response LABS: White count 6.7, hemoglobin 11.7, platelets 111, sodium 1:30, potassium 3.5, BUN 12, creatinine 0.64, magnesium 1.4 IMPRESSION: 1. A. fib with RVR 2. EtOH withdrawal 3. Thrombocytopenia 4. Urinary tract infection 5. Electrolyte imbalance, hyponatremia and hypokalemia 6. Hypertension PLAN: DC losartan, start valsartan 160 mg twice a day, starting this evening. Supplemental echo as per protocol. Continue supportive treatment. Further recommendations based upon clinical course. Objective - Vital Signs Vital signs: Vital Signs Temp 98.2 F 05/30/23 08:00 Pulse 62 05/30/23 11:00 Resp 27 H 05/30/23 11:00 BP 155/77 05/30/23 11:00 Pulse Ox 97 05/30/23 11:00 FiO2 Intake & Output 05/29/23 05/30/23 05/30/23 18:59 06:59 18:59 Intake Total 512.623 359.689 10.178 Output Total 500 2050 200 Balance 12.623 -1690.311 -189.822 Weight 99.8 kg 99.1 kg Intake: IV 440 Sodium Chloride 0.9% 1, 440 000 ml @ 40 mls/hr IV . Q24H [facility] Rx#:[id number] Intake, IV Titration 72.623 109.689 10.178 Amount Dexmedetomidine/0.9% NaCl 72.623 78.023 10.178 (Pmx) 400 mcg In Empty Bag 1 bag @ 0.4 MCG/KG/HR 9.97 mls/hr IV .Q10H2M [facility] Rx#:[id number] Diltiazem 125 mg In 31.666 Sodium Chloride 0.9% 100 ml @ Per Protocol IV .Q0M [facility] Rx#:[id number] Oral 250 Output: Urine 500 2050 200 Other: Voiding Method Diaper External Catheter External Catheter # Voids 1 1 - Labs CBC & Chem 7: 05/30/23 06:01 05/30/23 05:56 Labs: Abnormal Lab Results - Last 24 Hours (Table) 05/29/23 05/29/23 05/29/23 Range/Units 11:58 16:12 20:21 RBC (3.80-5.40) m/uL MCV (80.0-100.0) fL Plt Count (150-450) k/uL Lymphocytes # (1.0-4.8) k/uL Sodium (137-145) mmol/L Chloride (98-107) mmol/L Glucose (74-99) mg/dL POC Glucose (mg/dL) 138 H 129 H 182 H (70-110) mg/dL Magnesium (1.6-2.3) mg/dL 05/30/23 05/30/23 05/30/23 Range/Units 05:56 06:01 06:34 RBC 3.45 L (3.80-5.40) m/uL MCV 100.1 H (80.0-100.0) fL Plt Count 111 L (150-450) k/uL Lymphocytes # 0.7 L (1.0-4.8) k/uL Sodium 130 L (137-145) mmol/L Chloride 96 L (98-107) mmol/L Glucose 150 H (74-99) mg/dL POC Glucose (mg/dL) 151 H (70-110) mg/dL Magnesium 1.4 L (1.6-2.3) mg/dL 05/30/23 Range/Units 11:10 RBC (3.80-5.40) m/uL MCV (80.0-100.0) fL Plt Count (150-450) k/uL Lymphocytes # (1.0-4.8) k/uL Sodium (137-145) mmol/L Chloride (98-107) mmol/L Glucose (74-99) mg/dL POC Glucose (mg/dL) 155 H (70-110) mg/dL Magnesium (1.6-2.3) mg/dL
[2023-05-30 17:24] LABS: Glucose,Whole Blood 146 mg/dL (70-110)
[2023-05-30] MEDS: VALSARTAN 160 MG TAB PO SCH (19:56)
[2023-05-30] MEDS: DULoxetine HCL 60 MG CAPSULE.DR PO SCH (19:56)
[2023-05-30] MEDS: traZODone HCL 100 MG TAB PO SCH (19:56)
[2023-05-30 20:03] LABS: Glucose,Whole Blood 151 mg/dL (70-110)
--- NOTE | 2023-05-30 20:34 | P.PN ---
Subjective This is 62-year-old female admitted with acute sepsis secondary to acute complicated UTI with E. coli and gram-negative bacillus bacteremia, alcohol withdrawals in a patient with known alcohol abuse, liver disease, chronic thrombocytopenia, acute renal failure, hyponatremia and multiple other medical issues. Maintained on CIWA protocol, Haldol and morphine. Somnolent, NPO. Maintained on ceftriaxone as per ID. pro calcitonin 29.6. Gentle IV fluid hydration, Renal function improving. T-max 99.8. Maintaining O2 sats in the high 90s on 2 L nasal cannula. Magnesium 1.6. Blood sugars controlled. 05/26/2023 maintained on ceftriaxone, blood cultures reporting E. coli . Afebrile, WBC 6.8. Maintaining O2 sats in the high 90s on 2 L nasal cannula. Chest x-ray reported to full development of bilateral lower lobe infiltrate and small effusion . Echo reported preserved LV function .Current CIWA score 6 on CIWA protocol. Received 3 mg of Ativan throughout the night, less agitated this morning. Potassium 3.3, magnesium 1.7, receiving electrolyte supplementation as per ICU replacement protocols. Sodium 128. Bicarbonate 16, on bicarb drip. BUN 25, creatinine 0.91. Urine drug screen positive for opiates. Blood sugars controlled. 05/27/2023 CIWA score @ 0600 8, received Ativan, morphine, current CIWA score 0. Sensorium improving. Maintained on bicarb drip with bicarbonate increased to 24. Sodium 1:30 Continues on ceftriaxone, afebrile, normal WBC. Maintaining O2 sats in the 90s on 2 L nasal cannula. Potassium 3.2, magnesium 1.6. 05/28/23 required Ativan 2 during the night .developed atrial fibrillation with RVR during the night, placed on Cardizem drip, recently weaned off this morning. Telemetry atrial fibrillation with controlled ventricular rate. Sensorium significantly improved. Maintained on gentle IV fluid hydration. Generalized weakness, consumed breakfast with assistance. Blood sugars controlled. Denies nausea, vomiting or diarrhea. Afebrile, normal WBC. Denies chest pain, palpitations or shortness of breath. Maintaining O2 sats in the high 90s on 3 L nasal cannula. Chest x-ray reporting bilateral pleural effusions with cardiomegaly, bibasilar infiltrate, diffuse interstitial pattern area sclerotic change aorta. Hemoglobin 11.6, platelets increased to 100. Sodium 133, potassium 3.9, bicarb 25, BUN 18, creatinine 0.75. 05/29/2023 did not require Ativan throughout the night but this morning increased anxiety, restlessness-receiving IV Ativan. She needs on Precedex. Telemetry atrial fibrillation with controlled ventricular rate, anticoagulated with Eliquis. Afebrile, normal WBC. Blood sugars controlled. Maintained on IV ceftriaxone. Maintaining O2 sats in the 90s on 4 L nasal cannula. 05/30/2023 This is a pleasant 62 female who was admitted with severe sepsis secondary to sensitive E. coli UTI that complicated by E. coli bacteremia With evidence of alcohol withdrawal and metabolic encephalopathy. Also ultrasound showing cirrhotic liver with nodules. Patient currently kept in the ICU she still confused and got agitated at times, she keeps her eyes" of the time. She does not look in distress. Currently she kept on ceftriaxone. She is on liquids 2.5 metoprolol for her new onset A. fib. Objective - Vital Signs Vital signs: Vital Signs Temp 97.4 F L 05/30/23 04:00 Pulse 83 05/30/23 07:00 Resp 22 05/30/23 07:00 BP 168/93 05/30/23 07:00 Pulse Ox 97 05/30/23 07:00 FiO2 Intake & Output 05/29/23 05/30/23 05/30/23 18:59 06:59 18:59 Intake Total 512.623 359.689 10.178 Output Total 500 2050 Balance 12.623 -1690.311 10.178 Weight 99.8 kg 99.1 kg Intake: IV 440 Sodium Chloride 0.9% 1, 440 000 ml @ 40 mls/hr IV . Q24H [facility] Rx#:[id number] Intake, IV Titration 72.623 109.689 10.178 Amount Dexmedetomidine/0.9% NaCl 72.623 78.023 10.178 (Pmx) 400 mcg In Empty Bag 1 bag @ 0.4 MCG/KG/HR 9.97 mls/hr IV .Q10H2M [facility] Rx#:[id number] Diltiazem 125 mg In 31.666 Sodium Chloride 0.9% 100 ml @ Per Protocol IV .Q0M [facility] Rx#:[id number] Oral 250 Output: Urine 500 2050 Other: Voiding Method Diaper External Catheter External Catheter # Voids 1 1 - Exam -GENERAL: The patient is confused, does not follow commands, keeps eye shock most of the time, not in any acute distress. Well developed, well nourished. HEENT: Pupils are round and equally reacting to light. EOMI. No scleral icterus. No conjunctival pallor. Normocephalic, atraumatic. No pharyngeal erythema. No t hyromegaly. CARDIOVASCULAR: S1 and S2 present. No murmurs, rubs, or gallops. PULMONARY: Chest is clear to auscultation, no wheezing , no crackles. ABDOMEN: Soft, nontender, nondistended, normoactive bowel sounds. No palpable organomegaly. MUSCULOSKELETAL: No joint swelling or deformity. EXTREMITIES: No cyanosis, clubbing, or pedal edema. NEUROLOGICAL: Gross neurological examination did not reveal any focal deficits. SKIN: No rashes. no petechiae. - Labs CBC & Chem 7: 05/30/23 06:01 05/30/23 05:56 Labs: Abnormal Lab Results - Last 24 Hours (Table) 05/29/23 05/29/23 05/29/23 Range/Units 11:58 16:12 20:21 RBC (3.80-5.40) m/uL MCV (80.0-100.0) fL Plt Count (150-450) k/uL Lymphocytes # (1.0-4.8) k/uL Sodium (137-145) mmol/L Chloride (98-107) mmol/L Glucose (74-99) mg/dL POC Glucose (mg/dL) 138 H 129 H 182 H (70-110) mg/dL Magnesium (1.6-2.3) mg/dL 05/30/23 05/30/23 05/30/23 Range/Units 05:56 06:01 06:34 RBC 3.45 L (3.80-5.40) m/uL MCV 100.1 H (80.0-100.0) fL Plt Count 111 L (150-450) k/uL Lymphocytes # 0.7 L (1.0-4.8) k/uL Sodium 130 L (137-145) mmol/L Chloride 96 L (98-107) mmol/L Glucose 150 H (74-99) mg/dL POC Glucose (mg/dL) 151 H (70-110) mg/dL Magnesium 1.4 L (1.6-2.3) mg/dL Assessment and Plan Assessment: Acute sepsis secondary to suspected acute complicated UTI and right pyelonephritis as CT showing inflamed right kidney with E. coli and E Coli bacteremia. Renal ultrasound did not report obstructive uropathy. Acute toxic metabolic encephalopathy secondary to the above as well as alcohol withdrawal Alcohol abuse, acute EtOH withdrawal, on CIWA protocol, status post Precedex. Thrombocytopenia, chronic secondary to the above as well as liver disease Acute renal failure, secondary to dehydration, improving A. fib with RVR, not on anticoagulation at this time secondary to thrombocytopenia, new onset Left renal complex cyst, stable since 2020 most likely benign Lactic acidosis Hypertension Hyponatremia Liver cirrhosis secondary to the above Diabetes mellitus Diabetic neuropathy History of CVA, TIA History of seizure disorder secondary to alcohol withdrawal History of marijuana use Ongoing nicotine dependence Anxiety, depression Plan: Continue with ceftriaxone Continue with Eliquis Continue with [facility]oprolol and [facility] the [facility] Labs and medication were reviewed.. Continue same treatment. Continue with symptomatic treatment. Resume home medication. Monitor labs and vitals. DVT and GI prophylaxis. Further recommendations as per clinical course of the patient DVT prophylaxis: Eliquis GI per: Protonix Prognosis is guarded
[2023-05-31] MEDS: DEXMEDETOMIDINE/0.9% NACL(PMX) 400 MCG in EMPTY BAG 1 BAG IV SCH ×4 (00:44→20:50)
[2023-05-31 04:51] LABS: African American GFR (CKD) >90 (>60 ml/min/1.73 sqM); Anion Gap 6 mmol/L; Blood Urea Nitrogen 12 mg/dL (7-17); Calcium 8.7 mg/dL (8.4-10.2); Carbon Dioxide 26 mmol/L (22-30); Chloride 96 mmol/L (98-107); Glucose 141 mg/dL (74-99); Non-African American GFR(CKD) >90 (>60 ml/min/1.73 sqM); Sodium 128 mmol/L (137-145)
[2023-05-31 04:52] LABS: Magnesium 1.1 mg/dL (1.6-2.3); Potassium 4.4 mmol/L (3.5-5.1)
[2023-05-31] MEDS: HYDROcodone/APAP 5-325MG 1 EACH TAB PO PRN ×2 (05:29→16:53)
[2023-05-31 06:04] LABS: Glucose,Whole Blood 164 mg/dL (70-110)
[2023-05-31] MEDS: MAGNESIUM SULFATE-D5W PMX 1 GM in DEXTROSE/WATER 1 100ML.BAG IVPB SCH ×4 (06:14→11:02)
[2023-05-31] MEDS: metFORMIN 500 MG TAB PO SCH ×2 (06:35→19:09)
[2023-05-31] MEDS: INSULIN ASPART (NovoLOG) 100 UNIT/ML VIAL SQ SCH ×4 (06:35→21:20)
[2023-05-31] MEDS: ONDANSETRON 4 MG/2 ML VIAL IVP PRN (07:13)
[2023-05-31 07:16] LABS: Basophils % (A) 0 %; Eosinophils % (A) 0 %; HCT 34.8 % (34.0-46.0); HGB 11.8 gm/dL (11.4-16.0); Lymphocytes # (A) 0.6 k/uL (1.0-4.8); Lymphocytes % (A) 9 %; MCV 99.7 fL (80.0-100.0); Mean Platelet Volume 9.8; Monocytes # (A) 0.3 k/uL (0-1.0); Monocytes % (A) 5 %; Neutrophils # (A) 5.5 k/uL (1.3-7.7); Neutrophils % (A) 84 %; Platelet Count 104 k/uL (150-450); RBC 3.49 m/uL (3.80-5.40); RDW 13.5 % (11.5-15.5); WBC 6.6 k/uL (3.8-10.6)
[2023-05-31] MEDS: MULTIVITAMINS, THERA 1 EACH TAB PO SCH (08:09)
[2023-05-31] MEDS: VALSARTAN 160 MG TAB PO SCH (08:09)
[2023-05-31] MEDS: METOPROLOL TARTRATE 50 MG TAB PO SCH ×2 (08:09→20:54)
[2023-05-31] MEDS: THIAMINE 100 MG TAB PO SCH (08:09)
[2023-05-31] MEDS: PANTOPRAZOLE 40 MG/10 ML VIAL IV SCH (08:09)
[2023-05-31] MEDS: CALCIUM CARBONATE 500 MG CHEWABLE PO SCH (08:09)
[2023-05-31] MEDS: APIXABAN 2.5 MG TABLET PO SCH ×2 (08:09→20:54)
--- NOTE | 2023-05-31 08:50 | P.PN ---
Subjective This is 62-year-old female admitted with acute sepsis secondary to acute complicated UTI with E. coli and gram-negative bacillus bacteremia, alcohol withdrawals in a patient with known alcohol abuse, liver disease, chronic thrombocytopenia, acute renal failure, hyponatremia and multiple other medical issues. Maintained on CIWA protocol, Haldol and morphine. Somnolent, NPO. Maintained on ceftriaxone as per ID. pro calcitonin 29.6. Gentle IV fluid hydration, Renal function improving. T-max 99.8. Maintaining O2 sats in the high 90s on 2 L nasal cannula. Magnesium 1.6. Blood sugars controlled. 05/26/2023 maintained on ceftriaxone, blood cultures reporting E. coli . Afebrile, WBC 6.8. Maintaining O2 sats in the high 90s on 2 L nasal cannula. Chest x-ray reported to full development of bilateral lower lobe infiltrate and small effusion . Echo reported preserved LV function .Current CIWA score 6 on CIWA protocol. Received 3 mg of Ativan throughout the night, less agitated this morning. Potassium 3.3, magnesium 1.7, receiving electrolyte supplementation as per ICU replacement protocols. Sodium 128. Bicarbonate 16, on bicarb drip. BUN 25, creatinine 0.91. Urine drug screen positive for opiates. Blood sugars controlled. 05/27/2023 CIWA score @ 0600 8, received Ativan, morphine, current CIWA score 0. Sensorium improving. Maintained on bicarb drip with bicarbonate increased to 24. Sodium 1:30 Continues on ceftriaxone, afebrile, normal WBC. Maintaining O2 sats in the 90s on 2 L nasal cannula. Potassium 3.2, magnesium 1.6. 05/28/23 required Ativan 2 during the night .developed atrial fibrillation with RVR during the night, placed on Cardizem drip, recently weaned off this morning. Telemetry atrial fibrillation with controlled ventricular rate. Sensorium significantly improved. Maintained on gentle IV fluid hydration. Generalized weakness, consumed breakfast with assistance. Blood sugars controlled. Denies nausea, vomiting or diarrhea. Afebrile, normal WBC. Denies chest pain, palpitations or shortness of breath. Maintaining O2 sats in the high 90s on 3 L nasal cannula. Chest x-ray reporting bilateral pleural effusions with cardiomegaly, bibasilar infiltrate, diffuse interstitial pattern area sclerotic change aorta. Hemoglobin 11.6, platelets increased to 100. Sodium 133, potassium 3.9, bicarb 25, BUN 18, creatinine 0.75. 05/29/2023 did not require Ativan throughout the night but this morning increased anxiety, restlessness-receiving IV Ativan. She needs on Precedex. Telemetry atrial fibrillation with controlled ventricular rate, anticoagulated with Eliquis. Afebrile, normal WBC. Blood sugars controlled. Maintained on IV ceftriaxone. Maintaining O2 sats in the 90s on 4 L nasal cannula. 05/30/2023 This is a pleasant 62 female who was admitted with severe sepsis secondary to sensitive E. coli UTI that complicated by E. coli bacteremia With evidence of alcohol withdrawal and metabolic encephalopathy. Also ultrasound showing cirrhotic liver with nodules. Patient currently kept in the ICU she still confused and got agitated at times, she keeps her eyes" of the time. She does not look in distress. Currently she kept on ceftriaxone. She is on liquids 2.5 metoprolol for her new onset A. fib. 05/31/2023 Patient today is more alert awake and oriented to time place and person. She complains from generalized pain, She is hemodynamically stable. Labs look stable as well, sodium slightly low at 128 compared to 131 yesterday. Low magnesium was replaced per protocol She still on ceftriaxone She still on liquids, and metoprolol for new onset A. fib Objective - Vital Signs Vital signs: Vital Signs Temp 99.3 F 05/31/23 08:00 Pulse 73 05/31/23 08:00 Resp 22 05/31/23 08:00 BP 148/82 05/31/23 08:00 Pulse Ox 95 05/31/23 08:00 FiO2 Intake & Output 05/30/23 05/31/23 05/31/23 18:59 06:59 18:59 Intake Total 877.983 659.364 340 Output Total 1100 950 150 Balance -222.017 -290.636 190 Weight 99.7 kg Intake: IV 100 Magnesium Sulfate-D5w Pmx 100 1 gm In Dextrose/Water 1 100ml.bag @ 100 mls/hr IVPB Q1H [facility] Rx#: [id number] Intake, IV Titration 77.983 259.364 Amount Dexmedetomidine/0.9% NaCl 77.983 259.364 (Pmx) 400 mcg In Empty Bag 1 bag @ 0.4 MCG/KG/HR 9.97 mls/hr IV .Q10H2M [facility] Rx#:[id number] Oral 800 400 240 Output: Urine 1100 950 150 Other: Voiding Method External Catheter External Catheter # Voids 2 2 - Exam -GENERAL: The patient is confused, does not follow commands, keeps eye shock most of the time, not in any acute distress. Well developed, well nourished. HEENT: Pupils are round and equally reacting to light. EOMI. No scleral icterus. No conjunctival pallor. Normocephalic, atraumatic. No pharyngeal erythema. No thyromegaly. CARDIOVASCULAR: S1 and S2 present. No murmurs, rubs, or gallops. PULMONARY: Chest is clear to auscultation, no wheezing , no crackles. ABDOMEN: Soft, nontender, nondistended, normoactive bowel sounds. No palpable organomegaly. MUSCULOSKELETAL: No joint swelling or deformity. EXTREMITIES: No cyanosis, clubbing, or pedal edema. NEUROLOGICAL: Gross neurological examination did not reveal any focal deficits. SKIN: No rashes. no petechiae. - Labs CBC & Chem 7: 05/31/23 06:20 05/31/23 03:29 Labs: Abnormal Lab Results - Last 24 Hours (Table) 05/30/23 05/30/23 05/30/23 Range/Units 11:10 17:21 20:01 RBC (3.80-5.40) m/uL Plt Count (150-450) k/uL Lymphocytes # (1.0-4.8) k/uL Sodium (137-145) mmol/L Chloride (98-107) mmol/L Glucose (74-99) mg/dL POC Glucose (mg/dL) 155 H 146 H 151 H (70-110) mg/dL Magnesium (1.6-2.3) mg/dL 05/31/23 05/31/23 05/31/23 Range/Units 03:29 06:02 06:20 RBC 3.49 L (3.80-5.40) m/uL Plt Count 104 L (150-450) k/uL Lymphocytes # 0.6 L (1.0-4.8) k/uL Sodium 128 L (137-145) mmol/L Chloride 96 L (98-107) mmol/L Glucose 141 H (74-99) mg/dL POC Glucose (mg/dL) 164 H (70-110) mg/dL Magnesium 1.1 L (1.6-2.3) mg/dL Assessment and Plan Assessment: Acute sepsis secondary to suspected acute complicated UTI and right pyelonephritis as CT showing inflamed right kidney with E. coli and E Coli bacteremia. Renal ultrasound did not report obstructive uropathy. Acute toxic metabolic encephalopathy secondary to the above as well as alcohol withdrawal Alcohol abuse, acute EtOH withdrawal, on CIWA protocol, status post Precedex. Thrombocytopenia, chronic secondary to the above as well as liver disease Acute renal failure, secondary to dehydration, improving A. fib with RVR, not on anticoagulation at this time secondary to thrombocytopenia, new onset Left renal complex cyst, stable since 2020 most likely benign Lactic acidosis Hypertension Hyponatremia Liver cirrhosis secondary to the above Diabetes mellitus Diabetic neuropathy History of CVA, TIA History of seizure disorder secondary to alcohol withdrawal History of marijuana use Ongoing nicotine dependence Anxiety, depression Plan: Continue with ceftriaxone Continue with Eliquis Continue with metoprolol and follow [facility] and pulmonary team of the case Labs and medication were reviewed.. Continue same treatment. Continue with symptomatic treatment. Resume home medication. Monitor labs and vitals. DVT and GI prophylaxis. Further recommendations as per clinical course of the patient DVT prophylaxis: Eliquis GI per: Protonix Prognosis is guarded
[2023-05-31] MEDS ORDERED: VALSARTAN 160 MG TAB PO STA (08:55)
[2023-05-31 11:15] LABS: Glucose,Whole Blood 191 mg/dL (70-110)
--- NOTE | 2023-05-31 11:19 | P.PN ---
Subjective Progress Note Date: 05/31/23 The patient is a 62-year-old female currently admitted to the hospital with urinary tract infection. She subsequently underwent EtOH withdrawal and developed atrial fibrillation with RVR. Initially she was started on Cardizem IV and converted back into sinus rhythm however once the patient became more al ert, she is return to persistent atrial fibrillation. Rates have been well controlled on beta robert thereafter. We have been struggling to get her blood pressure well controlled since she has become more alert. Patient was resting comfortably in bed at the time of my examination. She denies any chest pain or chest pressure. She states her breathing is better. No dizziness or lightheadedness resting in bed. GENERAL: Well-appearing, well-nourished and in no acute distress. NECK: Supple without JVD or thyromegaly. LUNGS: Breath sounds are coarse to auscultation bilaterally. Respiration equal and unlabored. Bilateral rhonchi. HEART: Irregular rate and rhythm without murmurs, rubs or gallops. S1 and S2 heard. EXTREMITIES: Normal range of motion, mild edema. No clubbing or cyanosis. P eripheral pulses intact and strong. TELEMETRY: Persistent atrial fibrillation LABS: WBC 6.6, hemoglobin 11.8, hematocrit 34.8, platelet 104, sodium 128, potassium 4.4, BUN 12, creatinine 0.61, magnesium 1.1 IMPRESSION: A. fib with RVR EtOH withdrawal Thrombocytopenia Urinary tract infection Electrolyte imbalance Hypertension PLAN: Full 320 mg of valsartan in the morning Consideration for adding spironolactone as she has chronic hypokalemia and hypomagnesemia Supplement electrolytes per protocol Further recommendations based upon clinical course I am dictating on behalf of Dr Julius Allred's history/physical and assessment/plan. Objective - Vital Signs Vital signs: Vital Signs Temp 99.3 F 05/31/23 08:00 Pulse 56 L 05/31/23 10:00 Resp 17 05/31/23 10:00 BP 137/68 05/31/23 10:00 Pulse Ox 97 05/31/23 10:00 FiO2 Intake & Output 05/30/23 05/31/23 05/31/23 18:59 06:59 18:59 Intake Total 877.983 659.364 571.946 Output Total 1100 950 150 Balance -222.017 -290.636 421.946 Weight 99.7 kg Intake: IV 200 Magnesium Sulfate-D5w Pmx 200 1 gm In Dextrose/Water 1 100ml.bag @ 100 mls/hr IVPB Q1H RAUL Rx#: [id number] Intake, IV Titration 77.983 259.364 131.946 Amount Dexmedetomidine/0.9% NaCl 77.983 259.364 131.946 (Pmx) 400 mcg In Empty Bag 1 bag @ 0.4 MCG/KG/HR 9.97 mls/hr IV .Q10H2M RAUL Rx#:[id number] Oral 800 400 240 Output: Urine 1100 950 150 Other: Voiding Method External Catheter External Catheter External Catheter # Voids 2 2 - Labs CBC & Chem 7: 05/31/23 06:20 05/31/23 03:29 Labs: Abnormal Lab Results - Last 24 Hours (Table) 05/30/23 05/30/23 05/31/23 Range/Units 17:21 20:01 03:29 RBC (3.80-5.40) m/uL Plt Count (150-450) k/uL Lymphocytes # (1.0-4.8) k/uL Sodium 128 L (137-145) mmol/L Chloride 96 L (98-107) mmol/L Glucose 141 H (74-99) mg/dL POC Glucose (mg/dL) 146 H 151 H (70-110) mg/dL Magnesium 1.1 L (1.6-2.3) mg/dL 05/31/23 05/31/23 05/31/23 Range/Units 06:02 06:20 11:12 RBC 3.49 L (3.80-5.40) m/uL Plt Count 104 L (150-450) k/uL Lymphocytes # 0.6 L (1.0-4.8) k/uL Sodium (137-145) mmol/L Chloride (98-107) mmol/L Glucose (74-99) mg/dL POC Glucose (mg/dL) 164 H 191 H (70-110) mg/dL Magnesium (1.6-2.3) mg/dL
--- NOTE | 2023-05-31 11:33 | P.PN ---
Subjective Progress Note Date: 05/31/23 This is a 62-year-old female patient who presented to the emergency room on 05/22/2023 with complaints of right flank pain. She had a four-day history of ongoing urgency and frequency and hematuria but was unable to see her primary doctor. She was having issues with nausea and vomiting as well. She has a history of diabetes mellitus, hypertension, diabetic neuropathy, CVA, alcoholic seizures, kidney stones chronic and ongoing tobacco dependence, marijuana use, daily heavy alcohol use admitting to a fifth of whiskey a day. Her last drink was earlier in the day on the . Computed tomography scan of the abdomen and pelvis revealed inflammation changes around the right kidney without evidence of obstructing calculus. Mild dilatation of the collecting system. Correlate for recently passed renal calculus. Nodular liver contour with caudate lobe hypertrophy findings compatible with cirrhosis. Ultrasound of the kidneys and bladder revealed no evidence of obstructive uropathy. She was admitted to the regular medical floor with urinary tract infection, acute kidney injury and dehydration. At approximately 6:00 last evening the patient developed hypertension, tachycardia, hallucinations and a CIWA scale score greater than 15. The patient was transferred to the intensive care unit and initiated on Precedex infusion. She is seen today in consultation. She is arousable, oriented, calm and cooperative. Remains on Precedex at 0.3 mcg/kg per hour. She has normal saline and 130 ML's per hour. She had issues with atrial fibrillation with a rapid ventricular response and required Cardizem drip and hypotension with norepinephrine briefly. Both drips are currently on pause. White count 7.2. Hemoglobin 12.0. Platelets 36,000. Arterial blood gases a PaO2 of 82, pCO2 29 and a pH of 7.44 and 44% FiO2. Sodium 125. Potassium 3.9. Bicarb 14. BUN 32. Creatinine 1.63. Glucose 127. She is on antibiotics in the form of ceftriaxone. On today's evaluation of 05/25/2023, the patient is being seen for a follow-up. This is a very pleasant 60-year-old female patient, who presented to us with a urine checked infection and sepsis. She is currently septic with a gram-negative bacillus in her blood and the blood cultures have confirmed the finding. CAT scan of the abdomen and pelvis that was done on 05/22/2023 showed inflammatory changes in the right kidney without evidence of any obstructive calculus. There is also mild dilatation of the collecting duct indicating pos sibility of a passed renal calculus. She also has underlying liver cirrhosis as the patient is an alcoholic. She has mild cardiomegaly. She has moderate atherosclerotic changes and a complex renal cysts. Ultrasound of the abdomen was also done that showed no evidence of any hydronephrosis. For now, the patient is on IV fluids and she is on 0.9 at 130 mL an hour. She has been adequately resuscitated. She is on no pressors at this point in time. Antibiotic coverage is with IV Rocephin and she is receiving 2 g every 24 hours At the same time, the patient is encephalopathic and she is interviewed and. She is alert and oriented 1. The patient is off Precedex for now. She is receiving Haldol and Ativan and morphine as needed. She is not awake enough to have her breakfast at this point in time. She is quite lethargic and somnolent. She is arousable however. She is moving all 4 extremities. She has a congested cough. The echoes at 4 with a hemoglobin of 11.1 and a platelet count is chronically low at 32 with some interval drop in the platelet count. No evidence of any bleeding. Had acute kidney injury is also improving. Creatinine is down to 1.23 from as high as 1.9 with a BUN of 32. Serum bicarb is at 16 with a sodium level of 129 and a potassium level of 4.4. Her last echocardiogram was on 03/11/2023 and that showed an ejection fraction of 60-65%. She has multiple scratches in her lower extremities and she states that she has 18 cats at home 05/26/2023, the patient remains confused. Occasional yelling out and agitation. Overnight, she received a total of 3 mg of Ativan and this morning she is essentially calm and quiet and relaxing. No signs of any respiratory distress. She remains on oxygen at 2 L nasal cannula. She remains on IV Rocephin r egarding her sepsis and the blood culture was positive with E. coli sensitive to IV Rocephin which is being on a 2 g every 24 hours. The white cell count at 6.8 with a hemoglobin of 12.1. Platelet counts were low and we're awaiting a follow-up platelet count from today. Sodium level is at 128 and the patient is currently on normal saline at the rate of 130 mL an hour. Potassium level needs to be replaced at 3.0 and the serum bicarb is at 60 with a BUN of 25 and a creatinine of 0.9. Ammonia level was less than 9. Echocardiogram was completed yesterday and the patient was found to have a preserved LV function with an EF of around 55-60%. No significant valvular abnormalities and the patient is not taking any form of pressors at this point in time. 05/27/2023, the patient remains lethargic. Less confused compared to yesterday. Upon frequent trials, she was able to state location and name and birthdate. She seems to be more improved compared to yesterday although she still having episodes of confusion. Overall, more cooperative compared to yesterday. He received a total of 2 mg of Ativan overnight. Remains on IV Rocephin. Afebrile. Hemodynamically stable. Still on a bicarb infusion rate of 75 mL an hour. Serum bicarbs up to 24. Sodium is at 1:30 with a potassium level of 3.2. The white cell count is 9 with a hemoglobin 12.7 and the patient's platelet count is at 60. She has been on oxygen and she is currently on 2 L nasal cannula. Oral intake is quite diminished at this point in time. There is still lethargic and sleepy. Nevertheless, she is arousable. She was able to have a full breakfast today. She was fed by the nursing staff. She has weakness in her upper extremities. Overall, quite debilitated and still profoundly weak. She sleeps a lot. No agitation. Overnight, the patient went into atrial fibrillation with rapid ventricular response. She was given Cardizem drip and she was also given by mouth Lopressor. A total of 100 mg P the rate is controlled for now. She remains itchy fibrillation. Note that echocardiogram has been essentially within normal limits and the patient has normal lipid ejection fraction. The patient is afebrile. She is hemodynamically stable. She is on IV fluids with normal saline at the rate of 40 mL an hour. The white cell cause of 10.2 with a hemoglobin of 11.6. BUN is 18 with a creatinine of 0.7 and sodium levels of 133 and a potassium level is at 3.9. Her most recent chest x-ray from 05/26/2023 showed small bilateral pleural effusions more so on the right. She is currently on oxygen at 4 L nasal cannula. She remains on IV Rocephin regarding her E. coli sepsis. Platelet counts continue to improve. On 05/29/23, the patient is being seen for a FU. She is still lethargic and encephalopathic. She is having some increased anxiety and panic attacks and episodes of restlessness and agitation. The patient remains on Precedex at 0.4 mcg/kg/m. On and off, she is also requiring Ativan. Weak, lethargic, yet arousable and communicates. She is able to drink water intake pills and food or ally. No aspiration. The white cell count of 7.6, hemoglobin 11.5 and a platelet count of 109. Sodium is at 132 with a BUN of 15 and a creatinine of 0.6. The chest x-ray shows limited bibasilar pulmonary infiltrates and effusion. There is diffuse increased interstitial markings bilaterally. The patient remains on IV Rocephin. Her current cardiac rhythm is A. fib with a controlled rate and the patient is currently on anticoagulation with Eliquis. As mentioned, she is able to take her all medications. This includes trazodone 200 mg at bedtime, Cymbalta 60 mg by mouth daily on 05/30/23, the patient seems to be much more awake and communicating. Overnight, she required 1 mg of Ativan and we restarted back on Precedex which is currently running at 0.8 mcg/kg/h. She is doing much more comfortable at this point in time. She is on oxygen at 2 L nasal cannula. Her pulse ox is 97%. She did encounter elevated blood pressure and we note that she was in excess of fluid overload. She was given a dose of Lasix 40 mg IV and she produced approximately 2 L of urine output immediately. She also encountered A. fib/RVR yesterday. She was placed on Cardizem drip for rate control and she is currently off the Cardizem drip. She remains in atrial fibrillation with a controlled rate at this point in time. Blood work from today shows abdominal discomfort 6.7, hemoglobin 11.7 and platelet count is 111. BUN is 12 with a creatinine 0.6 and a sodium level is at 1:30. She remains on IV Rocephin regarding her UTI sepsis. She is afebrile. She is on no pressors at this point. IV fluids are KVO. She is tolerating diet. She is on anticoagulation with Eliquis 2.5 mg twice a day. She is also on Cymbalta 60 mg by mouth daily, and trazodone 200 mg at bedtime. She is on metoprolol 100 mg by mouth twice a day for rate control. Cardizem drip is discontinued for now. 05/31/2023, the patient is being seen for a follow-up. Doing well. No specific complaints. Mental status is gradually improving. She remains on Precedex which should be weaned off by today. No agitation. Level of alertness is improved. No focal neurological deficits. The white cell count is at 6.6, hemoglobin 11.8 and a platelet count is 104. Sodium level is 128, potassium levels at 4.4, bicarb is 26 and the chloride is 96. The patient remains on anticoagulation with Eliquis 2.5 mg by mouth twice a day. She remains on metoprolol 100 mg by mouth twice a day for rate control. Objective - Vital Signs Vital signs: Vital Signs Temp 99.3 F 05/31/23 08:00 Pulse 73 05/31/23 08:00 Resp 22 05/31/23 08:00 BP 148/82 05/31/23 08:00 Pulse Ox 95 05/31/23 08:00 FiO2 Intake & Output 05/30/23 05/31/23 05/31/23 18:59 06:59 18:59 Intake Total 877.983 659.364 340 Output Total 1100 950 150 Balance -222.017 -290.636 190 Weight 99.7 kg Intake: IV 100 Magnesium Sulfate-D5w Pmx 100 1 gm In Dextrose/Water 1 100ml.bag @ 100 mls/hr IVPB Q1H [facility]UL Rx#: [id number] Intake, IV Titration 77.983 259.364 Amount Dexmedetomidine/0.9% NaCl 77.983 259.364 (Pmx) 400 mcg In Empty Bag 1 bag @ 0.4 MCG/KG/HR 9.97 mls/hr IV .Q10H2M RAUL Rx#:[id number] Oral 800 400 240 Output: Urine 1100 950 150 Other: Voiding Method External Catheter External Catheter # Voids 2 2 - Exam GENERAL EXAM: Arousable, 62-year-old female, on 2 L nasal cannula, comfortable in no apparent distress. She is on precedex HEAD: Normocephalic. EYES: Normal reaction of pupils, equal size. NOSE: Clear with pink turbinates. THROAT: No erythema or exudates. NECK: No masses, no JVD. CHEST: No chest wall deformity. LUNGS: Equal air entry with no crackles, wheeze, rhonchi or dullness. CVS: S1 and S2 normal with no audible murmur, regular rhythm. ABDOMEN: No hepatosplenomegaly, normal bowel sounds, no guarding or rigidity. SPINE: No scoliosis or deformity SKIN: No rashes CENTRAL NERVOUS SYSTEM: No focal deficits, tone is normal in all 4 extremities. Generalized global weakness all 4 extremities. EXTREMITIES: There is no peripheral edema. No clubbing, no cyanosis. Periph eral pulses are intact. - Labs CBC & Chem 7: 05/31/23 06:20 05/31/23 03:29 Labs: Abnormal Lab Results - Last 24 Hours (Table) 05/30/23 05/30/23 05/30/23 Range/Units 11:10 17:21 20:01 RBC (3.80-5.40) m/uL Plt Count (150-450) k/uL Lymphocytes # (1.0-4.8) k/uL Sodium (137-145) mmol/L Chloride (98-107) mmol/L Glucose (74-99) mg/dL POC Glucose (mg/dL) 155 H 146 H 151 H (70-110) mg/dL Magnesium (1.6-2.3) mg/dL 05/31/23 05/31/23 05/31/23 Range/Units 03:29 06:02 06:20 RBC 3.49 L (3.80-5.40) m/uL Plt Count 104 L (150-450) k/uL Lymphocytes # 0.6 L (1.0-4.8) k/uL Sodium 128 L (137-145) mmol/L Chloride 96 L (98-107) mmol/L Glucose 141 H (74-99) mg/dL POC Glucose (mg/dL) 164 H (70-110) mg/dL Magnesium 1.1 L (1.6-2.3) mg/dL Assessment and Plan Plan: Acute sepsis secondary to a UTI/E. coli in her urine and blood. Hemodynamically stable on IV Rocephin. No evidence of any hydronephrosis. Suspected right pyelonephritis. The patient remains on IV Rocephin 2 g every 24 hours and she is hypodermically stable and no fever and no leukocytosis E. coli sepsis, being treated with IV Rocephin Encephalopathy, multifactorial. The patient continues to have episodes of encephalopathy related to delirium tremens and sepsis induced encephalopathy. I believe that most of her symptoms are related to delirium tremens. She does better on Precedex and this is running at 1.0 mcg/kg/m. patient is currently off Ativan. Acute alcohol withdrawal syndrome off Precedex infusion and ICU management. Patient admits to one fifth of whiskey a day New onset atrial fibrillation, the rate is controlled for now and the patient is off the Cardizem drip. The patient is on metoprolol 100 mg by mouth twice a day. She is on Eliquis Hyponatremia secondary to above, recovered Cirrhosis secondary to above Acute kidney injury secondary to dehydration, improving, renal function is normalized Non-anion gap metabolic acidosis, recovered Chronic thrombocytopenia, likely alcohol induced versus chronic liver disease. Platelet counts have improved since yesterday Hypertension Diabetes mellitus Diabetic neuropathy History of CVA/TIA History of seizure secondary to alcohol withdrawal History of anxiety/depression History of marijuana use Chronic and ongoing tobacco dependence Hypertension, improved and the patient's blood pressure is more stable, r esponded to Lasix. Plan Change the patient's IVF to KVO tolerating diet Continue IV Rocephin Wean off Precedex and discontinue Minimize the use of Ativan. Mental status improved considerably Titrate FiO2 to maintain saturation above 90%, currently on 2L of oxygen by nasal cannula Lasix 20 IVP x1 Continue anticoagulation with Eliquis regarding her atrial fibrillation Continue metoprolol 100 mg by mouth twice a day. Heart rate is under better control. Provide incentive spirometer May be able to chest and also the intensive care unit once off Precedex.
--- NOTE | 2023-05-31 11:42 | P.PN ---
Subjective Progress Note Date: 05/31/23 Principal diagnosis: Reason for follow-up is E coli pyelonephritis and bacteremia Patient is a 62 year old female with a past medical history significant for diabetes mellitus hypertension NV, seizure disorder presenting to the hospital for evaluation of right flank pain, patient has been diagnosed with right-sided pyelonephritis and did have E. coli bacteremia. On today's evaluation that is 05/31/2023, the patient continues to be afebrile , the patient is breathing comfortably on 2 L nasal cannula oxygen, the patient is sleepy but arousable and did mention everything bothering but did not answer specifically for any chest pain or cough no vomiting or diarrhea has been reported Patient white count is 6.6, creatinine is 0.61, abdominal ultrasound with no evidence of obstructive uropathy blood culture with gram-negative bacilli urine culture with E. coli that is sensitive pathogen Objective - Vital Signs Vital signs: Vital Signs Temp 99.3 F 05/31/23 08:00 Pulse 56 L 05/31/23 10:00 Resp 17 05/31/23 10:00 BP 137/68 05/31/23 10:00 Pulse Ox 97 05/31/23 10:00 FiO2 Intake & Output 05/30/23 05/31/23 05/31/23 18:59 06:59 18:59 Intake Total 877.983 659.364 571.946 Output Total 1100 950 150 Balance -222.017 -290.636 421.946 Weight 99.7 kg Intake: IV 200 Magnesium Sulfate-D5w Pmx 200 1 gm In Dextrose/Water 1 100ml.bag @ 100 mls/hr IVPB Q1H [facility]UL Rx#: [id number] Intake, IV Titration 77.983 259.364 131.946 Amount Dexmedetomidine/0.9% NaCl 77.983 259.364 131.946 (Pmx) 400 mcg In Empty Bag 1 bag @ 0.4 MCG/KG/HR 9.97 mls/hr IV .Q10H2M RAUL Rx#:[id number] Oral 800 400 240 Output: Urine 1100 950 150 Other: Voiding Method External Catheter External Catheter External Catheter # Voids 2 2 - Exam GENERAL DESCRIPTION: A middle-aged female lying in bed in no distress RESPIRATORY SYSTEM: Unlabored breathing , decreased breath sound at the bases HEART: S1 S2 regular rate and rhythm , ABDOMEN: Soft , no tenderness EXTREMITIES: No edema feet - Labs CBC & Chem 7: 05/31/23 06:20 05/31/23 03:29 Labs: Abnormal Lab Results - Last 24 Hours (Table) 05/30/23 05/30/23 05/31/23 Range/Units 17:21 20:01 03:29 RBC (3.80-5.40) m/uL Plt Count (150-450) k/uL Lymphocytes # (1.0-4.8) k/uL Sodium 128 L (137-145) mmol/L Chloride 96 L (98-107) mmol/L Glucose 141 H (74-99) mg/dL POC Glucose (mg/dL) 146 H 151 H (70-110) mg/dL Magnesium 1.1 L (1.6-2.3) mg/dL 05/31/23 05/31/23 05/31/23 Range/Units 06:02 06:20 11:12 RBC 3.49 L (3.80-5.40) m/uL Plt Count 104 L (150-450) k/uL Lymphocytes # 0.6 L (1.0-4.8) k/uL Sodium (137-145) mmol/L Chloride (98-107) mmol/L Glucose (74-99) mg/dL POC Glucose (mg/dL) 164 H 191 H (70-110) mg/dL Magnesium (1.6-2.3) mg/dL Assessment and Plan (1) Gram-negative bacteremia Current Visit: Yes Status: Acute Code(s): R78.81 - BACTEREMIA SNOMED Code(s): 440121046535 (2) Urinary tract infection Current Visit: Yes Status: Acute Code(s): N39.0 - URINARY TRACT INFECTION, SITE NOT SPECIFIED SNOMED Code(s): 34520928 Plan: 1patient presented to the hospital with sepsis in this patient who did have a elevated white count and tachycardia elevated lactic acid has been complaining of right flank pain positive UA likely complicated UTI 2blood culture positive for gram-negative bacilli source is likely urinary 3- ultrasound of the kidney and bladder did not show any obstructive uropathy 4patient remains to be afebrile white count has been normal 5-patient to continue with current treatment of Rocephin 2 g daily waiting for improvement in mentation before transition to oral Dictation was produced using [employer] software. please excuse any grammatical, word or spelling errors. Time with Patient: Less than 30
[2023-05-31 16:18] LABS: Glucose,Whole Blood 141 mg/dL (70-110)
[2023-05-31] MEDS: DULoxetine HCL 60 MG CAPSULE.DR PO SCH (20:54)
[2023-05-31] MEDS: traZODone HCL 100 MG TAB PO SCH (20:54)
[2023-05-31 21:00] LABS: Glucose,Whole Blood 151 mg/dL (70-110)
[2023-06-01] MEDS: hydrALAZINE HCL 20 MG/ML 1 ML VIAL IVP PRN ×2 (01:54→16:20)
[2023-06-01] MEDS: HYDROcodone/APAP 5-325MG 1 EACH TAB PO PRN ×3 (02:50→16:46)
[2023-06-01 04:15] LABS: Basophils % (A) 0 %; Eosinophils % (A) 0 %; HCT 31.2 % (34.0-46.0); HGB 10.9 gm/dL (11.4-16.0); Lymphocytes # (A) 0.8 k/uL (1.0-4.8); Lymphocytes % (A) 13 %; MCH 34.4 pg (25.0-35.0); MCHC 34.9 g/dL (31.0-37.0); MCV 98.6 fL (80.0-100.0); Mean Platelet Volume 9.7; Monocytes # (A) 0.3 k/uL (0-1.0); Monocytes % (A) 5 %; Neutrophils # (A) 4.9 k/uL (1.3-7.7); Neutrophils % (A) 80 %; Platelet Count 106 k/uL (150-450); RBC 3.16 m/uL (3.80-5.40); RDW 13.4 % (11.5-15.5); WBC 6.1 k/uL (3.8-10.6)
[2023-06-01 04:31] LABS: Potassium 3.8 mmol/L (3.5-5.1)
[2023-06-01 04:32] LABS: African American GFR (CKD) >90 (>60 ml/min/1.73 sqM); Anion Gap 5 mmol/L; Blood Urea Nitrogen 9 mg/dL (7-17); Calcium 8.6 mg/dL (8.4-10.2); Carbon Dioxide 27 mmol/L (22-30); Chloride 95 mmol/L (98-107); Glucose 164 mg/dL (74-99); Magnesium 1.5 mg/dL (1.6-2.3); Non-African American GFR(CKD) >90 (>60 ml/min/1.73 sqM); Sodium 127 mmol/L (137-145)
[2023-06-01 06:26] LABS: Glucose,Whole Blood 155 mg/dL (70-110)
[2023-06-01] MEDS ORDERED: POTASSIUM CHLORIDE ER 20 MEQ TAB.ER PO SCH (06:30)
[2023-06-01] MEDS ORDERED: MAGNESIUM SULFATE-D5W PMX 1 GM in DEXTROSE/WATER 1 100ML.BAG IVPB ONE (06:30)
[2023-06-01] MEDS: metFORMIN 500 MG TAB PO SCH ×2 (06:31→16:42)
[2023-06-01] MEDS: INSULIN ASPART (NovoLOG) 100 UNIT/ML VIAL SQ SCH ×4 (06:31→20:04)
--- NOTE | 2023-06-01 06:58 | P.PN ---
Subjective Progress Note Date: 06/01/23 Principal diagnosis: Persistent atrial fibrillation The patient is a 62-year-old female patient was admitted to the hospital with intoxication as well as atrial fibrillation with RVR which is known to her. The echo was performed and showed normal LV systolic function. The patient was started on AV marilynn robert agents was metoprolol as well as oral anticoagulation 06/01/2023 The patient was seen and evaluated this morning. She remains an issue fibrillation with overall controlled heart rate on the current medical regimen. She is also on oral anticoagulation. The plan is to pursue cardioversion on her in the next one to 2 days. She needs to undergo a JORGE as well. She is asymptomatic at this point. She is hemodynamically stable. The blood work was reviewed and seems to be stable as well. The examination is remarkable for irregular rhythm with diminished breathing sounds bilaterally Assessment Persistent H are fibrillation with controlled heart rate History of alcohol intoxication Multiple comorbid conditions Plan Continue the current medical regimen Pursue JORGE and cardioversion in the next 24-48 hours Follow-up with the patient Objective - Vital Signs Vital signs: Vital Signs Temp 98.4 F 06/01/23 00:00 Pulse 79 06/01/23 06:30 Resp 12 06/01/23 06:30 BP 135/66 06/01/23 06:30 Pulse Ox 96 06/01/23 06:30 FiO2 Intake & Output 05/31/23 05/31/23 06/01/23 06:59 18:59 06:59 Intake Total 579.962 9814.644 22.356 Output Total 950 1000 1250 Balance -290.636 547.644 -1227.644 Weight 99.7 kg 97 kg Intake: IV 400 Magnesium Sulfate-D5w Pmx 400 1 gm In Dextrose/Water 1 100ml.bag @ 100 mls/hr IVPB Q1H RAUL Rx#: [id number] Intake, IV Titration 259.364 227.644 22.356 Amount Dexmedetomidine/0.9% NaCl 259.364 177.644 22.356 (Pmx) 400 mcg In Empty Bag 1 bag @ 0.4 MCG/KG/HR 9.97 mls/hr IV .Q10H2M RAUL Rx#:[id number] cefTRIAXone 2 gm In 50 Sodium Chloride 0.9% 50 ml @ 100 mls/hr IVPB Q24H RAUL Rx#:[id number] Oral 400 920 Output: Urine 950 1000 1250 Other: Voiding Method External Catheter External Catheter External Catheter # Voids 2 1 1 # Bowel Movements 1 1 - Labs CBC & Chem 7: 06/01/23 03:33 06/01/23 03:33 Labs: Abnormal Lab Results - Last 24 Hours (Table) 05/31/23 05/31/23 05/31/23 Range/Units 06:20 11:12 16:16 RBC 3.49 L (3.80-5.40) m/uL Hgb (11.4-16.0) gm/dL Hct (34.0-46.0) % Plt Count 104 L (150-450) k/uL Lymphocytes # 0.6 L (1.0-4.8) k/uL Sodium (137-145) mmol/L Chloride (98-107) mmol/L Glucose (74-99) mg/dL POC Glucose (mg/dL) 191 H 141 H (70-110) mg/dL Magnesium (1.6-2.3) mg/dL 05/31/23 06/01/23 06/01/23 Range/Units 20:58 03:33 03:33 RBC 3.16 L (3.80-5.40) m/uL Hgb 10.9 L (11.4-16.0) gm/dL Hct 31.2 L (34.0-46.0) % Plt Count 106 L (150-450) k/uL Lymphocytes # 0.8 L (1.0-4.8) k/uL Sodium 127 L (137-145) mmol/L Chloride 95 L (98-107) mmol/L Glucose 164 H (74-99) mg/dL POC Glucose (mg/dL) 151 H (70-110) mg/dL Magnesium 1.5 L (1.6-2.3) mg/dL 06/01/23 Range/Units 06:25 RBC (3.80-5.40) m/uL Hgb (11.4-16.0) gm/dL Hct (34.0-46.0) % Plt Count (150-450) k/uL Lymphocytes # (1.0-4.8) k/uL Sodium (137-145) mmol/L Chloride (98-107) mmol/L Glucose (74-99) mg/dL POC Glucose (mg/dL) 155 H (70-110) mg/dL Magnesium (1.6-2.3) mg/dL
[2023-06-01] MEDS: THIAMINE 100 MG TAB PO SCH (08:35)
[2023-06-01] MEDS: PANTOPRAZOLE 40 MG/10 ML VIAL IV SCH (08:35)
[2023-06-01] MEDS: CALCIUM CARBONATE 500 MG CHEWABLE PO SCH (08:35)
[2023-06-01] MEDS: VALSARTAN 160 MG TAB PO SCH (08:35)
[2023-06-01] MEDS: METOPROLOL TARTRATE 50 MG TAB PO SCH ×2 (08:36→20:02)
[2023-06-01] MEDS: MULTIVITAMINS, THERA 1 EACH TAB PO SCH (08:36)
[2023-06-01] MEDS: APIXABAN 2.5 MG TABLET PO SCH ×2 (08:37→20:02)
[2023-06-01] MEDS: QUEtiapine 50 MG TAB PO SCH ×2 (08:58→20:16)
[2023-06-01 11:28] LABS: Glucose,Whole Blood 194 mg/dL (70-110)
--- NOTE | 2023-06-01 11:53 | P.PN ---
Subjective Progress Note Date: 06/01/23 Principal diagnosis: Reason for follow-up is E coli pyelonephritis and bacteremia Patient is a 62 year old female with a past medical history significant for diabetes mellitus hypertension SC, seizure disorder presenting to the hospital for evaluation of right flank pain, patient has been diagnosed with right-sided pyelonephritis and did have E. coli bacteremia. On today's evaluation that is 06/01/2023, the patient remains to be afebrile, the patient is more awake and alert today, the patient is breathing comfortably on room air and denies any shortness of breath, the patient denies chest pain or cough , patient denies abdominal pain, no nausea/vomiting and no diarrhea Patient white count is 6.1, creatinine is 0.62, abdominal ultrasound with no evidence of obstructive uropathy blood culture with gram-negative bacilli urine culture with E. coli that is sensitive pathogen Objective - Vital Signs Vital signs: Vital Signs Temp 98.0 F 06/01/23 08:00 Pulse 84 06/01/23 11:00 Resp 23 06/01/23 11:00 BP 158/77 06/01/23 11:00 Pulse Ox 96 06/01/23 11:00 FiO2 Intake & Output 05/31/23 06/01/23 06/01/23 18:59 06:59 18:59 Intake Total 1547.644 22.356 588.876 Output Total 1000 1250 400 Balance 547.644 -1227.644 188.876 Weight 97 kg 97 kg Intake: IV 400 Magnesium Sulfate-D5w Pmx 400 1 gm In Dextrose/Water 1 100ml.bag @ 100 mls/hr IVPB Q1H [facility]UL Rx#: [id number] Intake, IV Titration 227.644 22.356 98.876 Amount Dexmedetomidine/0.9% NaCl 177.644 22.356 98.876 (Pmx) 400 mcg In Empty Bag 1 bag @ 0.4 MCG/KG/HR 9.97 mls/hr IV .Q10H2M [facility]UL Rx#:[id number] cefTRIAXone 2 gm In 50 Sodium Chloride 0.9% 50 ml @ 100 mls/hr IVPB Q24H [facility]UL Rx#:[id number] Oral 920 490 Output: Urine 1000 1250 400 Other: Voiding Method External Catheter External Catheter External Catheter # Voids 1 1 # Bowel Movements 1 1 - Exam GENERAL DESCRIPTION: A middle-aged female lying in bed in no distress RESPIRATORY SYSTEM: Unlabored breathing , decreased breath sound at the bases HEART: S1 S2 regular rate and rhythm , ABDOMEN: Soft , no tenderness EXTREMITIES: No edema feet - Labs CBC & Chem 7: 06/01/23 03:33 06/01/23 03:33 Labs: Abnormal Lab Results - Last 24 Hours (Table) 05/31/23 05/31/23 06/01/23 Range/Units 16:16 20:58 03:33 RBC 3.16 L (3.80-5.40) m/uL Hgb 10.9 L (11.4-16.0) gm/dL Hct 31.2 L (34.0-46.0) % Plt Count 106 L (150-450) k/uL Lymphocytes # 0.8 L (1.0-4.8) k/uL Sodium (137-145) mmol/L Chloride (98-107) mmol/L Glucose (74-99) mg/dL POC Glucose (mg/dL) 141 H 151 H (70-110) mg/dL Magnesium (1.6-2.3) mg/dL 06/01/23 06/01/23 06/01/23 Range/Units 03:33 06:25 11:28 RBC (3.80-5.40) m/uL Hgb (11.4-16.0) gm/dL Hct (34.0-46.0) % Plt Count (150-450) k/uL Lymphocytes # (1.0-4.8) k/uL Sodium 127 L (137-145) mmol/L Chloride 95 L (98-107) mmol/L Glucose 164 H (74-99) mg/dL POC Glucose (mg/dL) 155 H 194 H (70-110) mg/dL Magnesium 1.5 L (1.6-2.3) mg/dL Assessment and Plan (1) Gram-negative bacteremia Current Visit: Yes Status: Acute Code(s): R78.81 - BACTEREMIA SNOMED Code(s): 006758132924 (2) Urinary tract infection Current Visit: Yes Status: Acute Code(s): N39.0 - URINARY TRACT INFECTION, SITE NOT SPECIFIED SNOMED Code(s): 01636059 Plan: 1patient presented to the hospital with sepsis in this patient who did have a elevated white count and tachycardia elevated lactic acid has been complaining of right flank pain positive UA likely complicated UTI 2blood culture positive for gram-negative bacilli source is likely urinary 3- ultrasound of the kidney and bladder did not show any obstructive uropathy 4patient has shown clinical improvement, patient will continue with current treatment of Rocephin 2 g daily if further improvement in mentation can be switched to by mouth Ceftin Dictation was produced using [employer] dictation software. please excuse any grammatical, word or spelling errors. Time with Patient: Less than 30
--- NOTE | 2023-06-01 12:21 | P.PN ---
Subjective Progress Note Date: 06/01/23 Principal diagnosis: Acute sepsis with acute bacteremia secondary to E. coli urinary tract infection This is a 62-year-old female patient who presented to the emergency room on 07/22/2022 with complaints of right flank pain. She had a four-day history of ongoing urgency and frequency and hematuria but was unable to see her primary doctor. She was having issues with nausea and vomiting as well. She has a history of diabetes mellitus, hypertension, diabetic neuropathy, CVA, alcoholic seizures, kidney stones chronic and ongoing tobacco dependence, marijuana use, daily heavy alcohol use admitting to a fifth of whiskey a day. Her last drink was earlier in the day on the . Computed tomography scan of the abdomen and pelvis revealed inflammation changes around the right kidney without evidence of obstructing calculus. Mild dilatation of the collecting system. Correlate for recently passed renal calculus. Nodular liver contour with caudate lobe hypertrophy findings compatible with cirrhosis. Ultrasound of the kidneys and bladder revealed no evidence of obstructive uropathy. She was admitted to the regular medical floor with urinary tract infection, acute kidney injury and dehydration. At approximately 6:00 last evening the patient developed hypertension, tachycardia, hallucinations and a CIWA scale score greater than 15. The patient was transferred to the intensive care unit and initiated on Precedex infusion. She is seen today in consultation. She is arousable, oriented, calm and cooperative. Remains on Precedex at 0.3 mcg/kg per hour. She has normal saline and 130 ML's per hour. She had issues with atrial fibrillation with a rapid ventricular response and required Cardizem drip and hypotension with norepinephrine briefly. Both drips are currently on pause. White count 7.2. Hemoglobin 12.0. Platelets 36,000. Arterial blood gases a PaO2 of 82, pCO2 29 and a pH of 7.44 and 44% FiO2. Sodium 125. Potassium 3.9. Bicarb 14. BUN 32. Creatinine 1.63. Glucose 127. She is on antibiotics in the form of ceftriaxone. On today's evaluation of 05/25/2023, the patient is being seen for a follow-up. This is a very pleasant 60-year-old female patient, who presented to us with a urine checked infection and sepsis. She is currently septic with a gram- negative bacillus in her blood and the blood cultures have confirmed the finding . CAT scan of the abdomen and pelvis that was done on 05/22/2023 showed inflammatory changes in the right kidney without evidence of any obstructive calculus. There is also mild dilatation of the collecting duct indicating possibility of a passed renal calculus. She also has underlying liver cirrhosis as the patient is an alcoholic. She has mild cardiomegaly. She has moderate atherosclerotic changes and a complex renal cysts. Ultrasound of the abdomen was also done that showed no evidence of any hydronephrosis. For now, the patient is on IV fluids and she is on 0.9 at 130 mL an hour. She has been adequately resuscitated. She is on no pressors at this point in time. Antibiotic coverage is with IV Rocephin and she is receiving 2 g every 24 hours At the same time, the patient is encephalopathic and she is interviewed and. She is alert and oriented 1. The patient is off Precedex for now. She is receiving Haldol and Ativan and morphine as needed. She is not awake enough to have her breakfast at this point in time. She is quite lethargic and somnolent. She is arousable however. She is moving all 4 extremities. She has a congested cough. The echoes at 4 with a hemoglobin of 11.1 and a platelet count is chronically low at 32 with some interval drop in the platelet count. No evidence of any bleeding. Had acute kidney injury is also improving. Creatinine is down to 1.23 from as high as 1.9 with a BUN of 32. Serum bicarb is at 16 with a sodium level of 129 and a potassium level of 4.4. Her last echocardiogram was on 03/11/2023 and that showed an ejection fraction of 60-65%. She has multiple scratches in her lower extremities and she states that she has 18 cats at home 05/26/2023, the patient remains confused. Occasional yelling out and agitation. Overnight, she received a total of 3 mg of Ativan and this morning she is essentially calm and quiet and relaxing. No signs of any respiratory distress. She remains on oxygen at 2 L nasal cannula. She remains on IV Rocephin regarding her sepsis and the blood culture was positive with E. coli sensitive to IV Rocephin which is being on a 2 g every 24 hours. The white cell count at 6.8 with a hemoglobin of 12.1. Platelet counts were low and we're awaiting a follow-up platelet count from today. Sodium level is at 128 and the patient is currently on normal saline at the rate of 130 mL an hour. Potassium level needs to be replaced at 3.0 and the serum bicarb is at 60 with a BUN of 25 and a creatinine of 0.9. Ammonia level was less than 9. Echocardiogram was completed yesterday and the patient was found to have a preserved LV function with an EF of around 55-60%. No significant valvular abnormalities and the patient is not taking any form of pressors at this point in time. 05/27/2023, the patient remains lethargic. Less confused compared to yesterday. Upon frequent trials, she was able to state location and name and birthdate. She seems to be more improved compared to yesterday although she still having episodes of confusion. Overall, more cooperative compared to yesterday. He received a total of 2 mg of Ativan overnight. Remains on IV Rocephin. Afebrile. Hemodynamically stable. Still on a bicarb infusion rate of 75 mL an hour. Serum bicarbs up to 24. Sodium is at 1:30 with a potassium level of 3.2. The white cell count is 9 with a hemoglobin 12.7 and the patient's platelet count is at 60. She has been on oxygen and she is currently on 2 L nasal cannula. Oral intake is quite diminished at this point in time. There is still lethargic and sleepy. Nevertheless, she is arousable. She was able to have a full breakfast today. She was fed by the nursing staff. She has weakness in her upper extremities. Overall, quite debilitated and still profoundly weak. She sleeps a lot. No agitation. Overnight, the patient went into atrial fibrillation with rapid ventricular response. She was given Cardizem drip and she was also given by mouth Lopressor. A total of 100 mg P the rate is controlled for now. She remains itchy fibrillation. Note that ech ocardiogram has been essentially within normal limits and the patient has normal lipid ejection fraction. The patient is afebrile. She is hemodynamically stable. She is on IV fluids with normal saline at the rate of 40 mL an hour. The white cell cause of 10.2 with a hemoglobin of 11.6. BUN is 18 with a creatinine of 0.7 and sodium levels of 133 and a potassium level is at 3.9. Her most recent chest x-ray from 05/26/2023 showed small bilateral pleural effusions more so on the right. She is currently on oxygen at 4 L nasal cannula. She remains on IV Rocephin regarding her E. coli sepsis. Platelet counts continue to improve. On 05/29/23, the patient is being seen for a FU. She is still lethargic and encephalopathic. She is having some increased anxiety and panic attacks and episodes of restlessness and agitation. The patient remains on Precedex at 0.4 mcg/kg/m. On and off, she is also requiring Ativan. Weak, lethargic, yet arousable and communicates. She is able to drink water intake pills and food orally. No aspiration. The white cell count of 7.6, hemoglobin 11.5 and a platelet count of 109. Sodium is at 132 with a BUN of 15 and a creatinine of 0.6. The chest x-ray shows limited bibasilar pulmonary infiltrates and effusion. There is diffuse increased interstitial markings bilaterally. The patient remains on IV Rocephin. Her current cardiac rhythm is A. fib with a controlled rate and the patient is currently on anticoagulation with Eliquis. As mentioned, she is able to take her all medications. This includes trazodone 200 mg at bedtime, Cymbalta 60 mg by mouth daily on 05/30/23, the patient seems to be much more awake and communicating. Overnight, she required 1 mg of Ativan and we restarted back on Precedex which is currently running at 0.8 mcg/kg/h. She is doing much more comfortable at this point in time. She is on oxygen at 2 L nasal cannula. Her pulse ox is 97%. She did encounter elevated blood pressure and we note that she was in e xcess of fluid overload. She was given a dose of Lasix 40 mg IV and she produced approximately 2 L of urine output immediately. She also encountered A. fib/RVR yesterday. She was placed on Cardizem drip for rate control and she is currently off the Cardizem drip. She remains in atrial fibrillation with a controlled rate at this point in time. Blood work from today shows abdominal discomfort 6.7, hemoglobin 11.7 and platelet count is 111. BUN is 12 with a creatinine 0.6 and a sodium level is at 1:30. She remains on IV Rocephin regarding her UTI sepsis. She is afebrile. She is on no pressors at this point. IV fluids are KVO. She is tolerating diet. She is on anticoagulation with Eliquis 2.5 mg twice a day. She is also on Cymbalta 60 mg by mouth daily, and trazodone 200 mg at bedtime. She is on metoprolol 100 mg by mouth twice a day for rate control. Cardizem drip is discontinued for now. 05/31/2023, the patient is being seen for a follow-up. Doing well. No specific complaints. Mental status is gradually improving. She remains on Precedex which should be weaned off by today. No agitation. Level of alertness is improved. No focal neurological deficits. The white cell count is at 6.6, hemoglobin 11.8 and a platelet count is 104. Sodium level is 128, potassium levels at 4.4, bicarb is 26 and the chloride is 96. The patient remains on anticoagulation with Eliquis 2.5 mg by mouth twice a day. She remains on metoprolol 100 mg by mouth twice a day for rate control. 06/01/2023, patient was evaluated today in the ICU, she is on room air, does not seem to be in any distress, however the patient is still receiving Precedex at 0.3 mcg/kg/h. Has been on and off Precedex intermittently for the last few days. Clinically the patient is doing great this morning, and we'll try to discontinue Precedex again. He remains on ceftriaxone for her E. coli bacteremi a and urinary tract infection/sepsis sodium is 127. Patient is receiving IV fluid in the form of 0.9 normal saline. She has a bit of a right flank pain, but overall the patient is doing much better, and responding well to treatment. CBC is relatively normal WBC count is 6.1 hemoglobin is 10.9 have basic metabolic profile is normal except for sodium of 127.1 last chest x-ray done over a week ago showed evidence of mild congestive heart failure and bilateral pleural effusions. Objective - Vital Signs Vital signs: Vital Signs Temp 98.0 F 06/01/23 08:00 Pulse 84 06/01/23 11:00 Resp 23 06/01/23 11:00 BP 158/77 06/01/23 11:00 Pulse Ox 96 06/01/23 11:00 FiO2 Intake & Output 05/31/23 06/01/23 06/01/23 18:59 06:59 18:59 Intake Total 1547.644 22.356 688.876 Output Total 1000 1250 700 Balance 547.644 -1227.644 -11.124 Weight 97 kg 97 kg Intake: IV 400 Magnesium Sulfate-D5w Pmx 400 1 gm In Dextrose/Water 1 100ml.bag @ 100 mls/hr IVPB Q1H RAUL Rx#: [id number] Intake, IV Titration 227.644 22.356 98.876 Amount Dexmedetomidine/0.9% NaCl 177.644 22.356 98.876 (Pmx) 400 mcg In Empty Bag 1 bag @ 0.4 MCG/KG/HR 9.97 mls/hr IV .Q10H2M RAUL Rx#:[id number] cefTRIAXone 2 gm In 50 Sodium Chloride 0.9% 50 ml @ 100 mls/hr IVPB Q24H RAUL Rx#:[id number] Oral 920 590 Output: Urine 1000 1250 700 Other: Voiding Method External Catheter External Catheter External Catheter # Voids 1 1 # Bowel Movements 1 1 - Exam Physical Exam: Revealed a 62-year-old female on room air, not in distress, nonetheless patient remains on Precedex. She is calm, and very appropriate. Head: Atraumatic, normocephalic HEENT:[Neck is supple.] [No neck masses.] [No thyromegaly.] [No JVD.] Chest: Diminished breath sounds at the bases no crackles or rhonchi or wheezes Cardiac Exam: [Normal S1 and S2, no S3 gallop, no murmur.] Abdomen: Obese, [Soft, nontender, no megaly, no rebound, no guarding, normal bowel sounds. Minimal tenderness in the right flank area otherwise unremarkable.] Extremities: [No clubbing, no edema, no cyanosis.] Neurological Exam: [No focal neurologic deficit. Patient is alert oriented 3. Psychiatric: Normal mood affect and normal mental status examination. Skin: No rashes.] - Labs CBC & Chem 7: 06/01/23 03:33 06/01/23 03:33 Labs: Abnormal Lab Results - Last 24 Hours (Table) 11/05/31/23 06/01/23 Range/Units 16:16 20:58 03:33 RBC 3.16 L (3.80-5.40) m/uL Hgb 10.9 L (11.4-16.0) gm/dL Hct 31.2 L (34.0-46.0) % Plt Count 106 L (150-450) k/uL Lymphocytes # 0.8 L (1.0-4.8) k/uL Sodium (137-145) mmol/L Chloride (98-107) mmol/L Glucose (74-99) mg/dL POC Glucose (mg/dL) 141 H 151 H (70-110) mg/dL Magnesium (1.6-2.3) mg/dL 06/01/23 06/01/23 06/01/23 Range/Units 03:33 06:25 11:28 RBC (3.80-5.40) m/uL Hgb (11.4-16.0) gm/dL Hct (34.0-46.0) % Plt Count (150-450) k/uL Lymphocytes # (1.0-4.8) k/uL Sodium 127 L (137-145) mmol/L Chloride 95 L (98-107) mmol/L Glucose 164 H (74-99) mg/dL POC Glucose (mg/dL) 155 H 194 H (70-110) mg/dL Magnesium 1.5 L (1.6-2.3) mg/dL Assessment and Plan Assessment: Impression: Acute urosepsis with acute bacteremia secondary to E. coli. Remains on IV Rocephin. Acute metabolic encephalopathy with acute alcohol withdrawal. New onset atrial fibrillation, maintained on metoprolol and eliquis. History of liver cirrhosis Acute hypovolemic hyponatremia Non-anion gap metabolic acidosis, resolved Chronic thrombocytopenia secondary to liver disease Benign essential hypertension Diabetes with diabetic neuropathy History of CVA/TIA History of seizures secondary to alcohol withdrawal Generalized anxiety disorder and depression Tobacco dependence syndrome Recommendation: Continue IV fluids Continue to monitor electrolytes Continue Rocephin Taper and discontinue Precedex today Use Ativan as needed for agitation and alcohol withdrawal well if the patient is off Precedex Discontinue oxygen Continue metoprolol and eliquis Continue incentive spirometry Could potentially transfer out of the ICU and the patient tolerates being off Precedex for few hours. Continue thiamine Continue multivitamins Continue close monitoring of the sugars and addressed accordingly Continue Cymbalta In the meantime we'll continue to follow. Time with Patient: Less than 30
--- NOTE | 2023-06-01 15:50 | P.PN ---
Subjective Progress Note Date: 06/01/23 This is 62-year-old female admitted with acute sepsis secondary to acute complicated UTI with E. coli and gram-negative bacillus bacteremia, alcohol withdrawals in a patient with known alcohol abuse, liver disease, chronic thrombocytopenia, acute renal failure, hyponatremia and multiple other medical issues. Maintained on CIWA protocol, Haldol and morphine. Somnolent, NPO. Maintained on ceftriaxone as per ID. pro calcitonin 29.6. Gentle IV fluid hydration, Renal function improving. T-max 99.8. Maintaining O2 sats in the high 90s on 2 L nasal cannula. Magnesium 1.6. Blood sugars controlled. 05/26/2023 maintained on ceftriaxone, blood cultures reporting E. coli . Afebrile, WBC 6.8. Maintaining O2 sats in the high 90s on 2 L nasal cannula. Chest x-ray reported to full development of bilateral lower lobe infiltrate and small effusion . Echo reported preserved LV function .Current CIWA score 6 on CIWA protocol. Received 3 mg of Ativan throughout the night, less agitated this morning. Potassium 3.3, magnesium 1.7, receiving electrolyte supplementation as per ICU replacement protocols. Sodium 128. Bicarbonate 16, on bicarb drip. BUN 25, creatinine 0.91. Urine drug screen positive for opiates. Blood sugars controlled. 05/27/2023 CIWA score @ 0600 8, received Ativan, morphine, current CIWA score 0. Sensorium improving. Maintained on bicarb drip with bicarbonate increased to 24. Sodium 1:30 Continues on ceftriaxone, afebrile, normal WBC. Maintaining O2 sats in the 90s on 2 L nasal cannula. Potassium 3.2, magnesium 1.6. 05/28/23 required Ativan 2 during the night .developed atrial fibrillation with RVR during the night, placed on Cardizem drip, recently weaned off this morning. Telemetry atrial fibrillation with controlled ventricular rate. Sensorium significantly improved. Maintained on gentle IV fluid hydration. Generalized weakness, consumed breakfast with assistance. Blood sugars controlled. Denies nausea, vomiting or diarrhea. Afebrile, normal WBC. Denies chest pain, palpitations or shortness of breath. Maintaining O2 sats in the high 90s on 3 L nasal cannula. Chest x-ray reporting bilateral pleural effusions with cardiomegaly, bibasilar infiltrate, diffuse interstitial pattern area sclerotic change aorta. Hemoglobin 11.6, platelets increased to 100. Sodium 133, potassium 3.9, bicarb 25, BUN 18, creatinine 0.75. 05/29/2023 did not require Ativan throughout the night but this morning increased anxiety, restlessness-receiving IV Ativan. She needs on Precedex. Telemetry atrial fibrillation with controlled ventricular rate, anticoagulated with Eliquis. Afebrile, normal WBC. Blood sugars controlled. Maintained on IV ceftriaxone. Maintaining O2 sats in the 90s on 4 L nasal cannula. 06/01/2023 maintained on Precedex drip, ceftriaxone. Afebrile, normal WBC. Telemetry atrial fibrillation with RVR, cardiology discussing JORGE/cardioversion. Sodium 127, BUN 9, creatinine 0.62, magnesium 1.5. Blood sugars controlled. Objective - Vital Signs Vital signs: Vital Signs Temp 98.0 F 06/01/23 12:00 Pulse 85 06/01/23 15:00 Resp 23 06/01/23 15:00 BP 167/103 06/01/23 15:00 Pulse Ox 95 06/01/23 15:00 FiO2 Intake & Output 05/31/23 06/01/23 06/01/23 18:59 06:59 18:59 Intake Total 1547.644 22.356 888.876 Output Total 1000 1250 1050 Balance 547.644 -1227.644 -161.124 Weight 97 kg 97 kg Intake: IV 400 Magnesium Sulfate-D5w Pmx 400 1 gm In Dextrose/Water 1 100ml.bag @ 100 mls/hr IVPB Q1H [facility] Rx#: [id number] Intake, IV Titration 227.644 22.356 148.876 Amount Dexmedetomidine/0.9% NaCl 177.644 22.356 98.876 (Pmx) 400 mcg In Empty Bag 1 bag @ 0.4 MCG/KG/HR 9.97 mls/hr IV .Q10H2M [facility] Rx#:[id number] cefTRIAXone 2 gm In 50 50 Sodium Chloride 0.9% 50 ml @ 100 mls/hr IVPB Q24H [facility] Rx#:[id number] Oral 920 740 Output: Urine 1000 1250 1050 Other: Voiding Method External Catheter External Catheter External Catheter # Voids 1 1 # Bowel Movements 1 1 1 - Exam GENERAL EXAM: Alert and oriented 2, 62-year-old female, on 3 L nasal cannula, anxious. HEAD: Normocephalic. Pupils equal. NECK: Supple, no JVD. LUNGS: Unlabored, Equal air entry, bilateral bases diminished CVS: S1 and S2 normal with no audible murmur, irregular rhythm. ABDOMEN: Soft, Nontender, no guarding or rigidity.+BS SKIN: No rashes, warm and dry NERVOUS SYSTEM: CN II through XII grossly intact, no focal deficits, generalized weakness. EXTREMITIES: Mild peripheral edema. No clubbing, no cyanosis. - Labs CBC & Chem 7: 06/01/23 03:33 06/01/23 03:33 Labs: Abnormal Lab Results - Last 24 Hours (Table) 05/31/23 05/31/23 06/01/23 Range/Units 16:16 20:58 03:33 RBC 3.16 L (3.80-5.40) m/uL Hgb 10.9 L (11.4-16.0) gm/dL Hct 31.2 L (34.0-46.0) % Plt Count 106 L (150-450) k/uL Lymphocytes # 0.8 L (1.0-4.8) k/uL Sodium (137-145) mmol/L Chloride (98-107) mmol/L Glucose (74-99) mg/dL POC Glucose (mg/dL) 141 H 151 H (70-110) mg/dL Magnesium (1.6-2.3) mg/dL 06/01/23 06/01/23 06/01/23 Range/Units 03:33 06:25 11:28 RBC (3.80-5.40) m/uL Hgb (11.4-16.0) gm/dL Hct (34.0-46.0) % Plt Count (150-450) k/uL Lymphocytes # (1.0-4.8) k/uL Sodium 127 L (137-145) mmol/L Chloride 95 L (98-107) mmol/L Glucose 164 H (74-99) mg/dL POC Glucose (mg/dL) 155 H 194 H (70-110) mg/dL Magnesium 1.5 L (1.6-2.3) mg/dL Assessment and Plan Assessment: Acute sepsis secondary to suspected acute complicated UTI with E. coli and E Coli bacteremia. Renal ultrasound did not report obstructive uropathy. Acute toxic metabolic encephalopathy secondary to the above as well as alcohol withdrawal Alcohol abuse, acute EtOH withdrawal, on CIWA protocol, status post Precedex. Thrombocytopenia, chronic secondary to the above as well as liver disease Acute renal failure, secondary to dehydration, resolved Persistent A. fib with RVR Lactic acidosis, resolved Hypertension Hyponatremia Liver cirrhosis secondary to the above Diabetes mellitus Diabetic neuropathy History of CVA, TIA History of seizure disorder secondary to alcohol withdrawal History of marijuana use Ongoing nicotine dependence Anxiety, depression Plan:Continue on current medication regime ,monitoring and symptomatic treatment. Cardiology discussing JORGE and cardioversion .Antibiotics as per ID. Magnesium replacement per replacement protocol as ordered. Prognosis guarded given multiple complex medical issues. The impression and plan of care has been dictated as directed. : I performed a history and examination of this patient, discussed the same with the dictator. I agree with the dictator's note ,documented as a scribe. Any additional findings or plans will be noted.
[2023-06-01] MEDS: SODIUM CHLORIDE 0.9% 1,000 ML IV SCH (16:16)
[2023-06-01 16:33] LABS: Glucose,Whole Blood 148 mg/dL (70-110)
--- NOTE | 2023-06-01 17:08 | CDI ---
Documentation Clarification Form Date: 06/01/2023 04:49:03 PM From: Shakira Ballard Phone: [phone] Admit Date: 05/23/2023 01:16:00 AM Patient Name: Anupama Howell Visit Number: [id number] Discharge Date: ATTENTION: The Clinical Documentation Specialists (CDI) and [facility] Coding Staff appreciate your assistance in clarifying documentation. Please respond to the clarification below the line at the bottom and electronically sign. The CDI & [facility] Coding staff will review the response and follow-up if needed. Please note: Queries are made part of the Legal Health Record. If you have any questions, please contact the author of this message via ITS. Dr. Quentin Willard Your patient has the documented diagnosis of mild congestive heart failure, 06/01, Pulmonary note. Additional information regarding the type, acuity of CHF is requested. History/Risk Factors: [id number] presented to the ED with four day history of right flank pain with urine urgency, frequency and hematuria. Also with nausea and vomiting. Medical History: DM, HTN, Heart failure and liver cirrhosis. 06/01 Pulmonary note. Clinical Indicators: VS/Pulse OX: 05/25 B/P 130/67, HR 90, RR 20 SpO2 96% 2L nc Echocardiogram Results: 05/25 EF 44-60% Mild concentric LVH. Mild mitral and tricuspid regurgitation. Chest X Ray: 05/26 Interval development of bilateral lower lobe infiltrate and small effusion. Treatment: 05/24 Lasix IV x 1 05/29 Lasix IV x 1; 05/30 Lasix IV x 1 ; 05/23 05/25 Lopressor 25mg po bid, 05/26 05/27 Lopressor 75mg po bid; 05/27 Lopressor 25mg po x 1; 05/27 Lopressor 100mg po BID. In your professional opinion, can you please clarify the acuity and type of CHF if known? [ x] Chronic Diastolic Heart Failure (preserved EF) [ ] Acute on Chronic Diastolic Heart Failure (preserved EF) [ ] Other, please specify [ ] Unable to determine (Template Last Revised: August 2020) MTDD
[2023-06-01] MEDS: ONDANSETRON 4 MG/2 ML VIAL IVP PRN (17:18)
[2023-06-01] MEDS: MORPHINE SULFATE 4 MG/ML SYRINGE IV PRN (17:58)
[2023-06-01 19:58] LABS: Glucose,Whole Blood 165 mg/dL (70-110)
[2023-06-01] MEDS: traZODone HCL 100 MG TAB PO SCH (20:03)
[2023-06-01] MEDS: DULoxetine HCL 60 MG CAPSULE.DR PO SCH (20:03)
[2023-06-02] MEDS: hydrALAZINE HCL 20 MG/ML 1 ML VIAL IVP PRN ×3 (01:13→14:23)
[2023-06-02] MEDS: MORPHINE SULFATE 4 MG/ML SYRINGE IV PRN (01:13)
[2023-06-02 04:27] LABS: Basophils % (A) 0 %; Eosinophils % (A) 0 %; HCT 32.8 % (34.0-46.0); HGB 11.2 gm/dL (11.4-16.0); Lymphocytes % (A) 15 %; MCH 33.6 pg (25.0-35.0); MCHC 34.2 g/dL (31.0-37.0); MCV 98.1 fL (80.0-100.0); Monocytes # (A) 0.3 k/uL (0-1.0); Monocytes % (A) 5 %; Neutrophils % (A) 78 %; Platelet Count 115 k/uL (150-450); RBC 3.35 m/uL (3.80-5.40); RDW 13.5 % (11.5-15.5); WBC 6.4 k/uL (3.8-10.6)
[2023-06-02 04:30] LABS: African American GFR (CKD) >90 (>60 ml/min/1.73 sqM); Anion Gap 7 mmol/L; Blood Urea Nitrogen 9 mg/dL (7-17); Calcium 8.8 mg/dL (8.4-10.2); Carbon Dioxide 25 mmol/L (22-30); Chloride 96 mmol/L (98-107); Glucose 121 mg/dL (74-99); Non-African American GFR(CKD) >90 (>60 ml/min/1.73 sqM); Potassium 4.3 mmol/L (3.5-5.1); Sodium 128 mmol/L (137-145)
[2023-06-02] MEDS: SODIUM CHLORIDE 0.9% 1,000 ML IV SCH ×2 (04:42→23:10)
[2023-06-02 04:48] LABS: Magnesium 1.5 mg/dL (1.6-2.3)
[2023-06-02] MEDS: MAGNESIUM SULFATE-D5W PMX 1 GM in DEXTROSE/WATER 1 100ML.BAG IVPB SCH ×2 (05:07→06:09)
[2023-06-02 05:56] LABS: Glucose,Whole Blood 155 mg/dL (70-110)
[2023-06-02] MEDS: INSULIN ASPART (NovoLOG) 100 UNIT/ML VIAL SQ SCH ×4 (06:48→20:17)
[2023-06-02] MEDS: metFORMIN 500 MG TAB PO SCH ×2 (06:48→17:12)
--- NOTE | 2023-06-02 07:02 | P.PN ---
Subjective Progress Note Date: 06/02/23 Principal diagnosis: Persistent atrial fibrillation The patient is a 62-year-old female patient was admitted to the hospital with intoxication as well as atrial fibrillation with RVR which is known to her. The echo was performed and showed normal LV systolic function. The patient was started on AV marilynn robert agents was metoprolol as well as oral anticoagulation 06/01/2023 The patient was seen and evaluated this morning. She remains an issue fibrillation with overall controlled heart rate on the current medical regimen. She is also on oral anticoagulation. The plan is to pursue cardioversion on her in the next one to 2 days. She needs to undergo a JORGE as well. She is asymptomatic at this point. She is hemodynamically stable. The blood work was reviewed and seems to be stable as well. The examination is remarkable for irregular rhythm with diminished breathing sounds bilaterally June [id number] The patient was seen this morning. The pressure remains elevated consistent with a stage II hypertension. I am going to add Aldactone to the current med ical regimen. She remains in atrial fibrillation with controlled heart rate. She is on oral anticoagulation. The examination is remarkable for irregular rhythm with diminished breathing sounds bilaterally and mild bilateral lower extremity edema Assessment Persistent atrial fibrillation with controlled heart rate History of alcohol intoxication Hypertension Plan Continue the current medical regimen Add Aldactone to the current medical regimen The patient can be transferred out of the ICU Objective - Vital Signs Vital signs: Vital Signs Temp 99.0 F 06/02/23 04:00 Pulse 82 06/02/23 06:00 Resp 24 06/02/23 06:00 BP 179/87 06/02/23 06:00 Pulse Ox 94 L 06/02/23 06:00 FiO2 Intake & Output 06/01/23 06/02/23 06/02/23 18:59 06:59 18:59 Intake Total 988.876 550 Output Total 1650 1250 Balance -661.124 -700 Weight 97 kg 105.1 kg Intake: Intake, IV Titration 248.876 550 Amount Dexmedetomidine/0.9% NaCl 98.876 (Pmx) 400 mcg In Empty Bag 1 bag @ 0.4 MCG/KG/HR 9.97 mls/hr IV .Q10H2M [facility] Rx#:[id number] Sodium Chloride 0.9% 1, 100 550 000 ml @ 50 mls/hr IV . Q20H [facility] Rx#:[id number] cefTRIAXone 2 gm In 50 Sodium Chloride 0.9% 50 ml @ 100 mls/hr IVPB Q24H [facility] Rx#:[id number] Oral 740 Output: Urine 1650 1250 Other: Voiding Method External Catheter External Catheter # Bowel Movements 1 - Labs CBC & Chem 7: 06/02/23 03:05 06/02/23 03:05 Labs: Abnormal Lab Results - Last 24 Hours (Table) 06/01/23 06/01/23 06/01/23 Range/Units 11: 16:30 19:57 RBC (3.80-5.40) m/uL Hgb (11.4-16.0) gm/dL Hct (34.0-46.0) % Plt Count (150-450) k/uL Sodium (137-145) mmol/L Chloride (98-107) mmol/L Glucose (74-99) mg/dL POC Glucose (mg/dL) 194 H 148 H 165 H (70-110) mg/dL Magnesium (1.6-2.3) mg/dL 06/02/23 06/02/23 06/02/23 Range/Units 03:05 03:05 05:54 RBC 3.35 L (3.80-5.40) m/uL Hgb 11.2 L (11.4-16.0) gm/dL Hct 32.8 L (34.0-46.0) % Plt Count 115 L (150-450) k/uL Sodium 128 L (137-145) mmol/L Chloride 96 L (98-107) mmol/L Glucose 121 H (74-99) mg/dL POC Glucose (mg/dL) 155 H (70-110) mg/dL Magnesium 1.5 L (1.6-2.3) mg/dL
[2023-06-02] MEDS: DEXMEDETOMIDINE/0.9% NACL(PMX) 400 MCG in EMPTY BAG 1 BAG IV SCH (08:01)
[2023-06-02] MEDS: PANTOPRAZOLE 40 MG/10 ML VIAL IV SCH (08:45)
[2023-06-02] MEDS: METOPROLOL TARTRATE 50 MG TAB PO SCH ×2 (08:46→20:21)
[2023-06-02] MEDS: CALCIUM CARBONATE 500 MG CHEWABLE PO SCH (08:46)
[2023-06-02] MEDS: THIAMINE 100 MG TAB PO SCH (08:46)
[2023-06-02] MEDS: MULTIVITAMINS, THERA 1 EACH TAB PO SCH (08:46)
[2023-06-02] MEDS: APIXABAN 2.5 MG TABLET PO SCH ×2 (08:46→20:21)
[2023-06-02] MEDS: SPIRONOLACTONE 25 MG TAB PO SCH (08:46)
[2023-06-02] MEDS: VALSARTAN 160 MG TAB PO SCH (08:47)
[2023-06-02] MEDS: LOSARTAN 50 MG TAB PO SCH (09:51)
[2023-06-02 11:17] LABS: Glucose,Whole Blood 144 mg/dL (70-110)
[2023-06-02] MEDS ORDERED: ZINC OXIDE PASTE (Z-GUARD) 1 APPLIC APPLIC TOPICAL PRN (11:49)
--- NOTE | 2023-06-02 12:21 | P.PN ---
Subjective Progress Note Date: 06/02/23 Principal diagnosis: Reason for follow-up is E coli pyelonephritis and bacteremia Patient is a 62 year old female with a past medical history significant for diabetes mellitus hypertension VT, seizure disorder presenting to the hospital for evaluation of right flank pain, patient has been diagnosed with right-sided pyelonephritis and did have E. coli bacteremia. On today's evaluation that is 06/02/2023, the patient continues to be afebrile, the patient is breathing comfortably on room air without the need for supplemental oxygen, the patient denies shortness of breath chest pain and no significant cough , patient denies nausea/vomiting, no abdominal pain and no diarrhea Patient white count is 6.4, creatinine is 0.65, abdominal ultrasound with no evidence of obstructive uropathy blood culture with gram-negative bacilli urine culture with E. coli that is sensitive pathogen Objective - Vital Signs Vital signs: Vital Signs Temp 98.6 F 06/02/23 12:00 Pulse 69 06/02/23 12:00 Resp 15 06/02/23 12:00 BP 163/79 06/02/23 12:00 Pulse Ox 94 L 06/02/23 12:00 FiO2 Intake & Output 06/01/23 06/02/23 06/02/23 18:59 06:59 18:59 Intake Total 358.869 4460 150 Output Total 1650 1500 250 Balance -661.124 -140 -100 Weight 97 kg 105.1 kg Intake: IV 150 0.9 @ 50 ml/hr IV 150 Intake, IV Titration 248.876 600 Amount Dexmedetomidine/0.9% NaCl 98.876 (Pmx) 400 mcg In Empty Bag 1 bag @ 0.4 MCG/KG/HR 9.97 mls/hr IV .Q10H2M [facility] Rx#:[id number] Sodium Chloride 0.9% 1, 100 600 000 ml @ 50 mls/hr IV . Q20H [facility] Rx#:[id number] cefTRIAXone 2 gm In 50 Sodium Chloride 0.9% 50 ml @ 100 mls/hr IVPB Q24H [facility] Rx#:[id number] Oral 740 760 Output: Urine 1650 1500 250 Other: Voiding Method External Catheter External Catheter External Catheter # Bowel Movements 1 - Exam GENERAL DESCRIPTION: A middle-aged female lying in bed in no distress RESPIRATORY SYSTEM: Unlabored breathing , decreased breath sound at the bases HEART: S1 S2 regular rate and rhythm , ABDOMEN: Soft , no tenderness EXTREMITIES: No edema feet - Labs CBC & Chem 7: 06/02/23 03:05 06/02/23 03:05 Labs: Abnormal Lab Results - Last 24 Hours (Table) 06/01/23 06/01/23 06/02/23 Range/Units 16:30 19:57 03:05 RBC 3.35 L (3.80-5.40) m/uL Hgb 11.2 L (11.4-16.0) gm/dL Hct 32.8 L (34.0-46.0) % Plt Count 115 L (150-450) k/uL Sodium (137-145) mmol/L Chloride (98-107) mmol/L Glucose (74-99) mg/dL POC Glucose (mg/dL) 148 H 165 H (70-110) mg/dL Magnesium (1.6-2.3) mg/dL 06/02/23 06/02/23 06/02/23 Range/Units 03:05 05:54 11:16 RBC (3.80-5.40) m/uL Hgb (11.4-16.0) gm/dL Hct (34.0-46.0) % Plt Count (150-450) k/uL Sodium 128 L (137-145) mmol/L Chloride 96 L (98-107) mmol/L Glucose 121 H (74-99) mg/dL POC Glucose (mg/dL) 155 H 144 H (70-110) mg/dL Magnesium 1.5 L (1.6-2.3) mg/dL Assessment and Plan (1) Gram-negative bacteremia Current Visit: Yes Status: Acute Code(s): R78.81 - BACTEREMIA SNOMED Code(s): 058831843231 (2) Urinary tract infection Current Visit: Yes Status: Acute Code(s): N39.0 - URINARY TRACT INFECTION, SITE NOT SPECIFIED SNOMED Code(s): 59694790 Plan: 1patient presented to the hospital with sepsis in this patient who did have a elevated white count and tachycardia elevated lactic acid has been complaining of right flank pain positive UA likely complicated UTI 2blood culture positive for gram-negative bacilli source is likely urinary 3- ultrasound of the kidney and bladder did not show any obstructive uropathy 4patient slowly clinically improving, currently on Rocephin 2 g daily will be switched to oral Omnicef today Dictation was produced using [employer] software. please excuse any grammatical, word or spelling errors. Time with Patient: Less than 30
--- NOTE | 2023-06-02 14:19 | P.PN ---
Subjective Progress Note Date: 06/02/23 Principal diagnosis: Acute sepsis with acute bacteremia secondary to E. coli urinary tract infection This is a 62-year-old female patient who presented to the emergency room on 07/22/2022 with complaints of right flank pain. She had a four-day history of ongoing urgency and frequency and hematuria but was unable to see her primary doctor. She was having issues with nausea and vomiting as well. She has a history of diabetes mellitus, hypertension, diabetic neuropathy, CVA, alcoholic seizures, kidney stones chronic and ongoing tobacco dependence, marijuana use, daily heavy alcohol use admitting to a fifth of whiskey a day. Her last drink was earlier in the day on the . Computed tomography scan of the abdomen and pelvis revealed inflammation changes around the right kidney without evidence of obstructing calculus. Mild dilatation of the collecting system. Correlate for recently passed renal calculus. Nodular liver contour with caudate lobe hypertrophy findings compatible with cirrhosis. Ultrasound of the kidneys and bladder revealed no evidence of obstructive uropathy. She was admitted to the regular medical floor with urinary tract infection, acute kidney injury and dehydration. At approximately 6:00 last evening the patient developed hypertension, tachycardia, hallucinations and a CIWA scale score greater than 15. The patient was transferred to the intensive care unit and initiated on Precedex infusion. She is seen today in consultation. She is arousable, oriented, calm and cooperative. Remains on Precedex at 0.3 mcg/kg per hour. She has normal saline and 130 ML's per hour. She had issues with atrial fibrillation with a rapid ventricular response and required Cardizem drip and hypotension with norepinephrine briefly. Both drips are currently on pause. White count 7.2. Hemoglobin 12.0. Platelets 36,000. Arterial blood gases a PaO2 of 82, pCO2 29 and a pH of 7.44 and 44% FiO2. Sodium 125. Potassium 3.9. Bicarb 14. BUN 32. Creatinine 1.63. Glucose 127. She is on antibiotics in the form of ceftriaxone. On today's evaluation of 05/25/2023, the patient is being seen for a follow-up. This is a very pleasant 60-year-old female patient, who presented to us with a urine checked infection and sepsis. She is currently septic with a gram- negative bacillus in her blood and the blood cultures have confirmed the finding . CAT scan of the abdomen and pelvis that was done on 05/22/2023 showed inflammatory changes in the right kidney without evidence of any obstructive calculus. There is also mild dilatation of the collecting duct indicating possibility of a passed renal calculus. She also has underlying liver cirrhosis as the patient is an alcoholic. She has mild cardiomegaly. She has moderate atherosclerotic changes and a complex renal cysts. Ultrasound of the abdomen was also done that showed no evidence of any hydronephrosis. For now, the patient is on IV fluids and she is on 0.9 at 130 mL an hour. She has been adequately resuscitated. She is on no pressors at this point in time. Antibiotic coverage is with IV Rocephin and she is receiving 2 g every 24 hours At the same time, the patient is encephalopathic and she is interviewed and. She is alert and oriented 1. The patient is off Precedex for now. She is receiving Haldol and Ativan and morphine as needed. She is not awake enough to have her breakfast at this point in time. She is quite lethargic and somnolent. She is arousable however. She is moving all 4 extremities. She has a congested cough. The echoes at 4 with a hemoglobin of 11.1 and a platelet count is chronically low at 32 with some interval drop in the platelet count. No evidence of any bleeding. Had acute kidney injury is also improving. Creatinine is down to 1.23 from as high as 1.9 with a BUN of 32. Serum bicarb is at 16 with a sodium level of 129 and a potassium level of 4.4. Her last echocardiogram was on 03/11/2023 and that showed an ejection fraction of 60-65%. She has multiple scratches in her lower extremities and she states that she has 18 cats at home 05/26/2023, the patient remains confused. Occasional yelling out and agitation. Overnight, she received a total of 3 mg of Ativan and this morning she is essentially calm and quiet and relaxing. No signs of any respiratory distress. She remains on oxygen at 2 L nasal cannula. She remains on IV Rocephin regarding her sepsis and the blood culture was positive with E. coli sensitive to IV Rocephin which is being on a 2 g every 24 hours. The white cell count at 6.8 with a hemoglobin of 12.1. Platelet counts were low and we're awaiting a follow-up platelet count from today. Sodium level is at 128 and the patient is currently on normal saline at the rate of 130 mL an hour. Potassium level needs to be replaced at 3.0 and the serum bicarb is at 60 with a BUN of 25 and a creatinine of 0.9. Ammonia level was less than 9. Echocardiogram was completed yesterday and the patient was found to have a preserved LV function with an EF of around 55-60%. No significant valvular abnormalities and the patient is not taking any form of pressors at this point in time. 05/27/2023, the patient remains lethargic. Less confused compared to yesterday. Upon frequent trials, she was able to state location and name and birthdate. She seems to be more improved compared to yesterday although she still having episodes of confusion. Overall, more cooperative compared to yesterday. He received a total of 2 mg of Ativan overnight. Remains on IV Rocephin. Afebrile. Hemodynamically stable. Still on a bicarb infusion rate of 75 mL an hour. Serum bicarbs up to 24. Sodium is at 1:30 with a potassium level of 3.2. The white cell count is 9 with a hemoglobin 12.7 and the patient's platelet count is at 60. She has been on oxygen and she is currently on 2 L nasal cannula. Oral intake is quite diminished at this point in time. There is still lethargic and sleepy. Nevertheless, she is arousable. She was able to have a full breakfast today. She was fed by the nursing staff. She has weakness in her upper extremities. Overall, quite debilitated and still profoundly weak. She sleeps a lot. No agitation. Overnight, the patient went into atrial fibrillation with rapid ventricular response. She was given Cardizem drip and she was also given by mouth Lopressor. A total of 100 mg P the rate is controlled for now. She remains itchy fibrillation. Note that ech ocardiogram has been essentially within normal limits and the patient has normal lipid ejection fraction. The patient is afebrile. She is hemodynamically stable. She is on IV fluids with normal saline at the rate of 40 mL an hour. The white cell cause of 10.2 with a hemoglobin of 11.6. BUN is 18 with a creatinine of 0.7 and sodium levels of 133 and a potassium level is at 3.9. Her most recent chest x-ray from 05/26/2023 showed small bilateral pleural effusions more so on the right. She is currently on oxygen at 4 L nasal cannula. She remains on IV Rocephin regarding her E. coli sepsis. Platelet counts continue to improve. On 05/29/23, the patient is being seen for a FU. She is still lethargic and encephalopathic. She is having some increased anxiety and panic attacks and episodes of restlessness and agitation. The patient remains on Precedex at 0.4 mcg/kg/m. On and off, she is also requiring Ativan. Weak, lethargic, yet arousable and communicates. She is able to drink water intake pills and food orally. No aspiration. The white cell count of 7.6, hemoglobin 11.5 and a platelet count of 109. Sodium is at 132 with a BUN of 15 and a creatinine of 0.6. The chest x-ray shows limited bibasilar pulmonary infiltrates and effusion. There is diffuse increased interstitial markings bilaterally. The patient remains on IV Rocephin. Her current cardiac rhythm is A. fib with a controlled rate and the patient is currently on anticoagulation with Eliquis. As mentioned, she is able to take her all medications. This includes trazodone 200 mg at bedtime, Cymbalta 60 mg by mouth daily on 05/30/23, the patient seems to be much more awake and communicating. Overnight, she required 1 mg of Ativan and we restarted back on Precedex which is currently running at 0.8 mcg/kg/h. She is doing much more comfortable at this point in time. She is on oxygen at 2 L nasal cannula. Her pulse ox is 97%. She did encounter elevated blood pressure and we note that she was in e xcess of fluid overload. She was given a dose of Lasix 40 mg IV and she produced approximately 2 L of urine output immediately. She also encountered A. fib/RVR yesterday. She was placed on Cardizem drip for rate control and she is currently off the Cardizem drip. She remains in atrial fibrillation with a controlled rate at this point in time. Blood work from today shows abdominal discomfort 6.7, hemoglobin 11.7 and platelet count is 111. BUN is 12 with a creatinine 0.6 and a sodium level is at 1:30. She remains on IV Rocephin regarding her UTI sepsis. She is afebrile. She is on no pressors at this point. IV fluids are KVO. She is tolerating diet. She is on anticoagulation with Eliquis 2.5 mg twice a day. She is also on Cymbalta 60 mg by mouth daily, and trazodone 200 mg at bedtime. She is on metoprolol 100 mg by mouth twice a day for rate control. Cardizem drip is discontinued for now. 05/31/2023, the patient is being seen for a follow-up. Doing well. No specific complaints. Mental status is gradually improving. She remains on Precedex which should be weaned off by today. No agitation. Level of alertness is improved. No focal neurological deficits. The white cell count is at 6.6, hemoglobin 11.8 and a platelet count is 104. Sodium level is 128, potassium levels at 4.4, bicarb is 26 and the chloride is 96. The patient remains on anticoagulation with Eliquis 2.5 mg by mouth twice a day. She remains on metoprolol 100 mg by mouth twice a day for rate control. 06/01/2023, patient was evaluated today in the ICU, she is on room air, does not seem to be in any distress, however the patient is still receiving Precedex at 0.3 mcg/kg/h. Has been on and off Precedex intermittently for the last few days. Clinically the patient is doing great this morning, and we'll try to discontinue Precedex again. He remains on ceftriaxone for her E. coli bacteremi a and urinary tract infection/sepsis sodium is 127. Patient is receiving IV fluid in the form of 0.9 normal saline. She has a bit of a right flank pain, but overall the patient is doing much better, and responding well to treatment. CBC is relatively normal WBC count is 6.1 hemoglobin is 10.9 have basic metabolic profile is normal except for sodium of 127.1 last chest x-ray done over a week ago showed evidence of mild congestive heart failure and bilateral pleural effusions. Patient was seen again today on 06/02/23, patient remains in the ICU, she is now off the Precedex, she remains on IV fluid at 50 mL per hour in the form of 0.9 normal saline, patient is doing much better, breathing fine, denies any specific complaints. Patient did not sleep well last night, and apparently according to the patient and takes normally 400 mg of trazodone every night to help her sleep. She is here now on only 200 mg, and I went ahead and increased her dose and took her off Seroquel. Patient is hemodynamically stable, her labs are basically unremarkable except for sodium remains at bit low at 128, it was 127 yesterday. Remains on antibiotics for gram-negative bacteremia and urinary tract infection continues to have minimal right sided flank pain. Patient was transitioned to oral Omnicef today by infectious disease Objective - Vital Signs Vital signs: Vital Signs Temp 98.6 F 06/02/23 12:00 Pulse 76 06/02/23 13:00 Resp 29 H 06/02/23 13:00 BP 161/90 06/02/23 13:00 Pulse Ox 92 L 06/02/23 13:00 FiO2 Intake & Output 06/01/23 06/02/23 06/02/23 18:59 06:59 18:59 Intake Total 359.601 4579 150 Output Total 1650 1500 250 Balance -661.124 -140 -100 Weight 97 kg 105.1 kg Intake: IV 150 0.9 @ 50 ml/hr IV 150 Intake, IV Titration 248.876 600 Amount Dexmedetomidine/0.9% NaCl 98.876 (Pmx) 400 mcg In Empty Bag 1 bag @ 0.4 MCG/KG/HR 9.97 mls/hr IV .Q10H2M [facility] Rx#:[id number] Sodium Chloride 0.9% 1, 100 600 000 ml @ 50 mls/hr IV . Q20H [facility] Rx#:[id number] cefTRIAXone 2 gm In 50 Sodium Chloride 0.9% 50 ml @ 100 mls/hr IVPB Q24H [facility] Rx#:[id number] Oral 740 760 Output: Urine 1650 1500 250 Other: Voiding Method External Catheter External Catheter External Catheter # Bowel Movements 1 - Exam Physical Exam: Revealed a 62-year-old female on room air, not in distress, on room air. Off Precedex Head: Atraumatic, normocephalic HEENT:[Neck is supple.] [No neck masses.] [No thyromegaly.] [No JVD.] Chest: Diminished breath sounds at the bases no crackles or rhonchi or wheezes Cardiac Exam: [Normal S1 and S2, no S3 gallop, no murmur.] Abdomen: Obese, [Soft, nontender, no megaly, no rebound, no guarding, normal bowel sounds. Minimal tenderness in the right flank area otherwise unremarkable.] Extremities: [No clubbing, no edema, no cyanosis.] Neurological Exam: [No focal neurologic deficit. Patient is alert oriented 3. Psychiatric: Normal mood affect and normal mental status examination. Skin: No rashes.] - Labs CBC & Chem 7: 06/02/23 03:05 06/02/23 03:05 Labs: Abnormal Lab Results - Last 24 Hours (Table) 06/01/23 06/01/23 06/02/23 Range/Units 16:30 19:57 03:05 RBC 3.35 L (3.80-5.40) m/uL Hgb 11.2 L (11.4-16.0) gm/dL Hct 32.8 L (34.0-46.0) % Plt Count 115 L (150-450) k/uL Sodium (137-145) mmol/L Chloride (98-107) mmol/L Glucose (74-99) mg/dL POC Glucose (mg/dL) 148 H 165 H (70-110) mg/dL Magnesium (1.6-2.3) mg/dL 06/02/23 06/02/23 06/02/23 Range/Units 03:05 05:54 11:16 RBC (3.80-5.40) m/uL Hgb (11.4-16.0) gm/dL Hct (34.0-46.0) % Plt Count (150-450) k/uL Sodium 128 L (137-145) mmol/L Chloride 96 L (98-107) mmol/L Glucose 121 H (74-99) mg/dL POC Glucose (mg/dL) 155 H 144 H (70-110) mg/dL Magnesium 1.5 L (1.6-2.3) mg/dL Assessment and Plan Assessment: Impression: Acute urosepsis with acute bacteremia secondary to E. coli. Transitioned from Rocephin to Omnicef as per infectious disease on the case. Acute metabolic encephalopathy with acute alcohol withdrawal. Resolved, patient is off Precedex. Chronic insomnia, maintained on trazodone. New onset atrial fibrillation, maintained on metoprolol and eliquis. Resolved. History of liver cirrhosis Acute hypovolemic hyponatremia Non-anion gap metabolic acidosis, resolved Chronic thrombocytopenia secondary to liver disease Benign essential hypertension Diabetes with diabetic neuropathy History of CVA/TIA History of seizures secondary to alcohol withdrawal Generalized anxiety disorder and depression Tobacco dependence syndrome Recommendation: Continue IV fluids Continue to monitor electrolytes Continue antibiotics/Omnicef. Transfer patient to medical floor/3 S. Continue metoprolol and eliquis Continue incentive spirometry Continue multivitamins We'll continue to follow Time with Patient: Less than 30
[2023-06-02] MEDS: HYDROcodone/APAP 5-325MG 1 EACH TAB PO PRN ×2 (14:23→20:20)
[2023-06-02] MEDS: LORazepam 2 MG/ML INJ IV PRN ×2 (14:36→23:07)
--- NOTE | 2023-06-02 14:36 | P.PN ---
Subjective Progress Note Date: 06/02/23 This is 62-year-old female admitted with acute sepsis secondary to acute complicated UTI with E. coli and gram-negative bacillus bacteremia, alcohol withdrawals in a patient with known alcohol abuse, liver disease, chronic thrombocytopenia, acute renal failure, hyponatremia and multiple other medical issues. Maintained on CIWA protocol, Haldol and morphine. Somnolent, NPO. Maintained on ceftriaxone as per ID. pro calcitonin 29.6. Gentle IV fluid hydration, Renal function improving. T-max 99.8. Maintaining O2 sats in the high 90s on 2 L nasal cannula. Magnesium 1.6. Blood sugars controlled. 05/26/2023 maintained on ceftriaxone, blood cultures reporting E. coli . Afebrile, WBC 6.8. Maintaining O2 sats in the high 90s on 2 L nasal cannula. Chest x-ray reported to full development of bilateral lower lobe infiltrate and small effusion . Echo reported preserved LV function .Current CIWA score 6 on CIWA protocol. Received 3 mg of Ativan throughout the night, less agitated this morning. Potassium 3.3, magnesium 1.7, receiving electrolyte supplementation as per ICU replacement protocols. Sodium 128. Bicarbonate 16, on bicarb drip. BUN 25, creatinine 0.91. Urine drug screen positive for opiates. Blood sugars controlled. 05/27/2023 CIWA score @ 0600 8, received Ativan, morphine, current CIWA score 0. Sensorium improving. Maintained on bicarb drip with bicarbonate increased to 24. Sodium 1:30 Continues on ceftriaxone, afebrile, normal WBC. Maintaining O2 sats in the 90s on 2 L nasal cannula. Potassium 3.2, magnesium 1.6. 05/28/23 required Ativan 2 during the night .developed atrial fibrillation with RVR during the night, placed on Cardizem drip, recently weaned off this morning. Telemetry atrial fibrillation with controlled ventricular rate. Sensorium significantly improved. Maintained on gentle IV fluid hydration. Generalized weakness, consumed breakfast with assistance. Blood sugars controlled. Denies nausea, vomiting or diarrhea. Afebrile, normal WBC. Denies chest pain, palpitations or shortness of breath. Maintaining O2 sats in the high 90s on 3 L nasal cannula. Chest x-ray reporting bilateral pleural effusions with cardiomegaly, bibasilar infiltrate, diffuse interstitial pattern area sclerotic change aorta. Hemoglobin 11.6, platelets increased to 100. Sodium 133, potassium 3.9, bicarb 25, BUN 18, creatinine 0.75. 05/29/2023 did not require Ativan throughout the night but this morning increased anxiety, restlessness-receiving IV Ativan. She needs on Precedex. Telemetry atrial fibrillation with controlled ventricular rate, anticoagulated with Eliquis. Afebrile, normal WBC. Blood sugars controlled. Maintained on IV ceftriaxone. Maintaining O2 sats in the 90s on 4 L nasal cannula. 06/01/2023 maintained on Precedex drip, ceftriaxone. Afebrile, normal WBC. Telemetry atrial fibrillation with RVR, cardiology discussing JORGE/cardioversion. Sodium 127, BUN 9, creatinine 0.62, magnesium 1.5. Blood sugars controlled. 06/02/2023 Precedex recently weaned off, continues on gentle IV fluid hydration. Telemetry atrial fibrillation with controlled ventricular rate. Hypertensive, Aldactone added to med regimen with PRN hydralazine as per cardiology. Continues on antibiotics as per ID for UTI. Significant improvement in sensorium. Sodium 128, creatinine 0.65. Magnesium 1.5. Blood sugars stable. Maintaining O2 sats in the low 90s on room air. Objective - Vital Signs Vital signs: Vital Signs Temp 98.6 F 06/02/23 12:00 Pulse 71 06/02/23 14:00 Resp 0 L 06/02/23 14:00 BP 161/90 06/02/23 14:00 Pulse Ox 92 L 06/02/23 14:00 FiO2 Intake & Output 06/01/23 06/02/23 06/02/23 18:59 06:59 18:59 Intake Total 330.932 1986 150 Output Total 1650 1500 250 Balance -661.124 -140 -100 Weight 97 kg 105.1 kg Intake: IV 150 0.9 @ 50 ml/hr IV 150 Intake, IV Titration 248.876 600 Amount Dexmedetomidine/0.9% NaCl 98.876 (Pmx) 400 mcg In Empty Bag 1 bag @ 0.4 MCG/KG/HR 9.97 mls/hr IV .Q10H2M [facility] Rx#:[id number] Sodium Chloride 0.9% 1, 100 600 000 ml @ 50 mls/hr IV . Q20H [facility] Rx#:[id number] cefTRIAXone 2 gm In 50 Sodium Chloride 0.9% 50 ml @ 100 mls/hr IVPB Q24H [facility] Rx#:[id number] Oral 740 760 Output: Urine 1650 1500 250 Other: Voiding Method External Catheter External Catheter External Catheter # Bowel Movements 1 - Exam GENERAL EXAM: Alert and oriented 3, no acute distress HEAD: Normocephalic. Pupils equal. NECK: Supple, no JVD. LUNGS: Unlabored, Equal air entry, bilateral bases diminished CVS: S1 and S2 normal with no audible murmur, irregular rhythm. ABDOMEN: Soft, Nontender, no guarding or rigidity.+BS SKIN: No rashes, warm and dry. NERVOUS SYSTEM: CN II through XII grossly intact, no focal deficits, generalized weakness. EXTREMITIES: Mild peripheral edema. No clubbing, no cyanosis. - Labs CBC & Chem 7: 06/02/23 03:05 06/02/23 03:05 Labs: Abnormal Lab Results - Last 24 Hours (Table) 06/01/23 06/01/23 06/02/23 Range/Units 16:30 19:57 03:05 RBC 3.35 L (3.80-5.40) m/uL Hgb 11.2 L (11.4-16.0) gm/dL Hct 32.8 L (34.0-46.0) % Plt Count 115 L (150-450) k/uL Sodium (137-145) mmol/L Chloride (98-107) mmol/L Glucose (74-99) mg/dL POC Glucose (mg/dL) 148 H 165 H (70-110) mg/dL Magnesium (1.6-2.3) mg/dL 06/02/23 06/02/23 06/02/23 Range/Units 03:05 05:54 11:16 RBC (3.80-5.40) m/uL Hgb (11.4-16.0) gm/dL Hct (34.0-46.0) % Plt Count (150-450) k/uL Sodium 128 L (137-145) mmol/L Chloride 96 L (98-107) mmol/L Glucose 121 H (74-99) mg/dL POC Glucose (mg/dL) 155 H 144 H (70-110) mg/dL Magnesium 1.5 L (1.6-2.3) mg/dL Assessment and Plan Assessment: Acute sepsis secondary to suspected acute complicated UTI with E. coli and E Coli bacteremia. Renal ultrasound did not report obstructive uropathy. Acute toxic metabolic encephalopathy secondary to the above as well as alcohol withdrawal Alcohol abuse, acute EtOH withdrawal, on CIWA protocol, status post Precedex. Thrombocytopenia, chronic secondary to the above as well as liver disease Acute renal failure, secondary to dehydration, resolved Persistent A. fib with RVR Lactic acidosis, resolved Hypertension Hyponatremia Liver cirrhosis secondary to the above Diabetes mellitus Diabetic neuropathy History of CVA, TIA History of seizure disorder secondary to alcohol withdrawal History of marijuana use Ongoing nicotine dependence Anxiety, depression Plan:Continue on current medication regime ,monitoring and symptomatic treatment. Patient has been transitioned to selective overflow. Maintain antibiotics as per ID-transitioned to oral cefdnir. Cardiology discussing potential JORGE and cardioversion . Magnesium replacement per replacement protocol as previously ordered. Prognosis guarded given multiple complex medical issues.PT/OT for subacute rehab at discharge. The impression and plan of care has been dictated as directed. : I performed a history and examination of this patient, discussed the same with the dictator. I agree with the dictator's note ,documented as a scribe. Any additional findings or plans will be noted.
[2023-06-02 16:23] LABS: Glucose,Whole Blood 151 mg/dL (70-110)
[2023-06-02 20:05] LABS: Glucose,Whole Blood 147 mg/dL (70-110)
[2023-06-02] MEDS: DULoxetine HCL 60 MG CAPSULE.DR PO SCH (20:20)
[2023-06-02] MEDS ORDERED: traZODone HCL 100 MG TAB PO SCH (21:00)
[2023-06-02] MEDS: CEFDINIR 300 MG CAP PO SCH (21:33)
[2023-06-03] MEDS: hydrALAZINE HCL 20 MG/ML 1 ML VIAL IVP PRN (04:10)
[2023-06-03] MEDS: LORazepam 2 MG/ML INJ IV PRN (04:17)
[2023-06-03] MEDS: metFORMIN 500 MG TAB PO SCH (06:49)
[2023-06-03 06:50] LABS: Glucose,Whole Blood 139 mg/dL (70-110)
[2023-06-03] MEDS: INSULIN ASPART (NovoLOG) 100 UNIT/ML VIAL SQ SCH ×2 (06:51→12:56)
[2023-06-03] MEDS: PANTOPRAZOLE 40 MG/10 ML VIAL IV SCH (08:15)
[2023-06-03] MEDS: METOPROLOL TARTRATE 50 MG TAB PO SCH (08:15)
[2023-06-03] MEDS: THIAMINE 100 MG TAB PO SCH (08:15)
[2023-06-03] MEDS: APIXABAN 2.5 MG TABLET PO SCH (08:15)
[2023-06-03] MEDS: CALCIUM CARBONATE 500 MG CHEWABLE PO SCH (08:15)
[2023-06-03] MEDS: MULTIVITAMINS, THERA 1 EACH TAB PO SCH (08:15)
[2023-06-03] MEDS: SPIRONOLACTONE 25 MG TAB PO SCH (08:15)
[2023-06-03 08:54] VITALS: RESP 17; TEMP 98.9
[2023-06-03] MEDS: VALSARTAN 160 MG TAB PO SCH (09:38)
[2023-06-03] MEDS: CEFDINIR 300 MG CAP PO SCH (09:38)
--- NOTE | 2023-06-03 11:15 | P.PN ---
Subjective Progress Note Date: 06/03/23 62-year-old female admitted with acute sepsis secondary to acute complicated UTI with E. coli and gram-negative bacillus bacteremia, alcohol withdrawals in a patient with known alcohol abuse, liver disease, chronic thrombocytopenia, acute renal failure, hyponatremia and multiple other medical issues. Maintained on CIWA protocol, Haldol and morphine. Somnolent, NPO. Maintained on ceftriaxone as per ID. pro calcitonin 29.6. Gentle IV fluid hydration, Renal function improving. T-max 99.8. Maintaining O2 sats in the high 90s on 2 L nasal cannula. Magnesium 1.6. Blood sugars controlled. 05/26/2023 maintained on ceftriaxone, blood cultures reporting E. coli . Afebrile, WBC 6.8. Maintaining O2 sats in the high 90s on 2 L nasal cannula. Chest x-ray reported to full development of bilateral lower lobe infiltrate and small effusion . Echo reported preserved LV function .Current CIWA score 6 on CIWA protocol. Received 3 mg of Ativan throughout the night, less agitated this morning. Potassium 3.3, magnesium 1.7, receiving electrolyte supplementation as per ICU replacement protocols. Sodium 128. Bicarbonate 16, on bicarb drip. BUN 25, creatinine 0.91. Urine drug screen positive for opiates. Blood sugars controlled. 05/27/2023 CIWA score @ 0600 8, received Ativan, morphine, current CIWA score 0. Sensorium improving. Maintained on bicarb drip with bicarbonate increased to 24. Sodium 1:30 Continues on ceftriaxone, afebrile, normal WBC. Maintaining O2 sats in the 90s on 2 L nasal cannula. Potassium 3.2, magnesium 1.6. 05/28/23 required Ativan 2 during the night .developed atrial fibrillation with RVR during the night, placed on Cardizem drip, recently weaned off this morning. Telemetry atrial fibrillation with controlled ventricular rate. Sensorium significantly improved. Maintained on gentle IV fluid hydration. Generalized weakness, consumed breakfast with assistance. Blood sugars controlled. Denies nausea, vomiting or diarrhea. Afebrile, normal WBC. Denies chest pain, palpitations or shortness of breath. Maintaining O2 sats in the high 90s on 3 L nasal cannula. Chest x-ray reporting bilateral pleural effusions with cardiomegaly, bibasilar infiltrate, diffuse interstitial pattern area sclerotic change aorta. Hemoglobin 11.6, platelets increased to 100. Sodium 133, potassium 3.9, bicarb 25, BUN 18, creatinine 0.75. 05/29/2023 did not require Ativan throughout the night but this morning increased anxiety, restlessness-receiving IV Ativan. She needs on Precedex. Telemetry atrial fibrillation with controlled ventricular rate, anticoagulated with Eliquis. Afebrile, normal WBC. Blood sugars controlled. Maintained on IV ceftriaxone. Maintaining O2 sats in the 90s on 4 L nasal cannula. 06/01/2023 maintained on Precedex drip, ceftriaxone. Afebrile, normal WBC. Telemetry atrial fibrillation with RVR, cardiology discussing JORGE/cardioversion. Sodium 127, BUN 9, creatinine 0.62, magnesium 1.5. Blood sugars controlled. 06/02/2023 Precedex recently weaned off, continues on gentle IV fluid hydration. Telemetry atrial fibrillation with controlled ventricular rate. Hypertensive, Aldactone added to med regimen with PRN hydralazine as per cardiology. Continues on antibiotics as per ID for UTI. Significant improvement in sensorium. Sodium 128, creatinine 0.65. Magnesium 1.5. Blood sugars stable. Maintaining O2 sats in the low 90s on room air. 06/03/23: Patient seen and evaluated bedside, patient alert and oriented 4, patient transferred out of medical ICU, patient transition to oral antibiotic. Follow up CBC basic metabolic panel ordered patient will need discharge to rehab facility Objective - Vital Signs Vital signs: Vital Signs Temp 98.9 F 06/03/23 08:35 Pulse 83 06/03/23 08:35 Resp 17 06/03/23 08:35 BP 178/79 06/03/23 08:35 Pulse Ox 98 06/03/23 08:35 FiO2 Intake & Output 06/02/23 06/03/23 06/03/23 18:59 06:59 18:59 Intake Total 200 550 Output Total 300 Balance -100 550 Weight 101.8 kg Intake: IV 200 550 0.9 @ 50 ml/hr IV 200 550 Output: Urine 300 Other: Voiding Method External Catheter External Catheter # Voids 1 # Bowel Movements 1 - Exam PHYSICAL EXAMINATION: GENERAL: The patient is alert and oriented x3, ill appearance, nasal cannula in place. HEENT: Pupils are round and equally reacting to light. EOMI. CARDIOVASCULAR: S1 and S2 present. No murmurs, rubs, or gallops. PULMONARY: Chest is clear to auscultation, no wheezing or crackles. ABDOMEN: Soft, nontender, nondistended, normoactive bowel sounds. No palpable organomegaly. MUSCULOSKELETAL: No joint swelling or deformity. EXTREMITIES: No cyanosis, clubbing, or pedal edema. NEUROLOGICAL: Gross neurological examination did not reveal any focal deficits. SKIN: No rashes. - Labs CBC & Chem 7: 06/02/23 03:05 06/02/23 03:05 Labs: Abnormal Lab Results - Last 24 Hours (Table) 06/02/23 06/02/23 06/02/23 Range/Units 11:16 16:21 20:04 POC Glucose (mg/dL) 144 H 151 H 147 H (70-110) mg/dL 06/03/23 Range/Units 06:48 POC Glucose (mg/dL) 139 H (70-110) mg/dL Assessment and Plan Assessment: Assessment and plan * Acute sepsis secondary to Acute complicated UTI with E. coli and E Coli bacteremia. * E. coli bacteremia * Renal ultrasound did not report obstructive uropathy. * Acute toxic metabolic encephalopathy secondary to the above as well as alcohol withdrawal * Alcohol abuse, acute EtOH withdrawal, on CIWA protocol, status post Precedex. * Thrombocytopenia, chronic secondary to the above as well as liver disease * Acute renal failure. Renal invasion * Persistent A. 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 coli bacteremia continue oral antibiotics * In regards to diabetes mellitus Accu-Cheks before meals at bedtime continue patient on correctional insulin * In regards to alcohol withdrawal patient is status post Precedex, patient has completed withdrawal protocol Time with Patient: Greater than 30
--- NOTE | 2023-06-03 11:28 | P.DS ---
Providers Date of admission: 05/23/23 01:16 Expected date of discharge: 06/03/23 Attending physician: Rl Ellis Consults: 05/23/23 12:22 Consult Physician Routine Consulting Provider: Brittany Boo Consult Reason/Comments: Bacteremia Do you want consulting provider notified?: Yes 05/23/23 18:16 Consult Physician Routine Consulting Provider: Elie Banks Consult Reason/Comments: ICU management Do you want consulting provider notified?: Already Contacted 05/23/23 20:57 Consult Physician Stat Consulting Provider: Alvarado Lawson Consult Reason/Comments: New onset A-Fib RVR Do you want consulting provider notified?: Yes Primary care physician: Rl Ellis [facility] Course: 62-year-old female admitted with acute sepsis secondary to acute complicated UTI with E. coli and gram-negative bacillus bacteremia, alcohol withdrawals in a patient with known alcohol abuse, liver disease, chronic thrombocytopenia, acute renal failure, hyponatremia and multiple other medical issues. Maintained on CIWA protocol, Haldol and morphine. Somnolent, NPO. Maintained on ceftriaxone as per ID. pro calcitonin 29.6. Gentle IV fluid hydration, Renal function improving. T-max 99.8. Maintaining O2 sats in the high 90s on 2 L nasal cannula. Magnesium 1.6. Blood sugars controlled. 05/26/2023 maintained on ceftriaxone, blood cultures reporting E. coli . Afebrile, WBC 6.8. Maintaining O2 sats in the high 90s on 2 L nasal cannula. Chest x-ray reported to full development of bilateral lower lobe infiltrate and small effusion . Echo reported preserved LV function .Current CIWA score 6 on CIWA protocol. Received 3 mg of Ativan throughout the night, less agitated this morning. Potassium 3.3, magnesium 1.7, receiving electrolyte supplementation as per ICU replacement protocols. Sodium 128. Bicarbonate 16, on bicarb drip. BUN 25, creatinine 0.91. Urine drug screen positive for opiates. Blood sugars controlled. 05/27/2023 CIWA score @ 0600 8, received Ativan, morphine, current CIWA score 0. Sensorium improving. Maintained on bicarb drip with bicarbonate increased to 24. Sodium 1:30 Continues on ceftriaxone, afebrile, normal WBC. Maintaining O2 sats in the 90s on 2 L nasal cannula. Potassium 3.2, magnesium 1.6. 05/28/23 required Ativan 2 during the night .developed atrial fibrillation with RVR during the night, placed on Cardizem drip, recently weaned off this morning. Telemetry atrial fibrillation with controlled ventricular rate. Sensorium significantly improved. Maintained on gentle IV fluid hydration. Generalized weakness, consumed breakfast with assistance. Blood sugars controlled. Denies nausea, vomiting or diarrhea. Afebrile, normal WBC. Denies chest pain, palpitations or shortness of breath. Maintaining O2 sats in the high 90s on 3 L nasal cannula. Chest x-ray reporting bilateral pleural effusions with cardiomegaly, bibasilar infiltrate, diffuse interstitial pattern area sclerotic change aorta. Hemoglobin 11.6, platelets increased to 100. Sodium 133, potassium 3.9, bicarb 25, BUN 18, creatinine 0.75. 05/29/2023 did not require Ativan throughout the night but this morning increased anxiety, restlessness-receiving IV Ativan. She needs on Precedex. Telemetry atrial fibrillation with controlled ventricular rate, anticoagulated with Eliquis. Afebrile, normal WBC. Blood sugars controlled. Maintained on IV ceftriaxone. Maintaining O2 sats in the 90s on 4 L nasal cannula. 06/01/2023 maintained on Precedex drip, ceftriaxone. Afebrile, normal WBC. Telemetry atrial fibrillation with RVR, cardiology discussing JORGE/cardioversion. Sodium 127, BUN 9, creatinine 0.62, magnesium 1.5. Blood sugars controlled. 06/02/2023 Precedex recently weaned off, continues on gentle IV fluid hydration. Telemetry atrial fibrillation with controlled ventricular rate. Hypertensive, Aldactone added to med regimen with PRN hydralazine as per cardiology. Continues on antibiotics as per ID for UTI. Significant improvement in sensorium. Sodium 128, creatinine 0.65. Magnesium 1.5. Blood sugars stable. Maintaining O2 sats in the low 90s on room air. 06/03/23: Patient seen and evaluated bedside, patient alert and oriented 4, patient transferred out of medical ICU, patient transition to oral antibiotic. Follow up CBC basic metabolic panel ordered patient will need discharge to rehab facility PHYSICAL EXAMINATION: GENERAL: The patient is alert and oriented x3, ill appearance, nasal cannula in place. HEENT: Pupils are round and equally reacting to light. EOMI. CARDIOVASCULAR: S1 and S2 present. No murmurs, rubs, or gallops. PULMONARY: Chest is clear to auscultation, no wheezing or crackles. ABDOMEN: Soft, nontender, nondistended, normoactive bowel sounds. No palpable organomegaly. MUSCULOSKELETAL: No joint swelling or deformity. EXTREMITIES: No cyanosis, clubbing, or pedal edema. NEUROLOGICAL: Gross neurological examination did not reveal any focal deficits. SKIN: No rashes. Assessment: Assessment and plan * Acute sepsis secondary to Acute complicated UTI with E. coli and E Coli bacteremia. * E. coli bacteremia * Renal ultrasound did not report obstructive uropathy. * Acute toxic metabolic encephalopathy secondary to the above as well as alcohol withdrawal * Alcohol abuse, acute EtOH withdrawal, on CIIL protocol, status post Precedex. * Thrombocytopenia, chronic secondary to the above as well as liver disease * Acute renal failure. Renal invasion * Persistent A. 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 coli bacteremia continue oral antibiotics * In regards to diabetes mellitus Accu-Cheks before meals at bedtime, continue metformin * In regards to alcohol withdrawal patient is status post Precedex, patient has completed withdrawal protocol Patient Condition at Discharge: Stable Plan - Discharge Summary Discharge Rx Participant: Yes New Discharge Prescriptions: New Valsartan [Diovan] 320 mg PO DAILY tab Spironolactone [Aldactone] 25 mg PO DAILY tab Apixaban [Eliquis] 2.5 mg PO BID tab Metoprolol Tartrate [Lopressor] 100 mg PO BID tab Cefdinir [Omnicef] 300 mg PO BID 5 Days #10 cap Thiamine [Vitamin B-1] 100 mg PO DAILY tab Continue Multivit with Calcium,Iron,Min [Women's Multivitamin] 1 tab PO DAILY metFORMIN HCL [Glucophage] 500 mg PO BID DULoxetine HCL [Cymbalta] 60 mg PO HS Vitamin B Complex 1 cap PO DAILY Furosemide [Lasix] 40 mg PO DAILY Biotin 5 mg PO DAILY Calcium Carbonate [Calcium] 600 mg PO DAILY Vitamin D3(Unknown Dose) 1 tab PO DAILY traZODone HCL 200 mg PO HS Changed HYDROcodone/APAP 5-325MG [Hopkins 5-325] 1 tab PO BID 3 Days #6 tab Discontinued Metoprolol Tartrate [Lopressor] 25 mg PO BID Losartan-Hctz 50-12.5 mg [Hyzaar 50-12.5] 1 tab PO DAILY Discharge Medication List Multivit with Calcium,Iron,Min [Women's Multivitamin] 1 tab PO DAILY 05/18/19 [History] metFORMIN HCL [Glucophage] 500 mg PO BID 08/31/20 [History] DULoxetine HCL [Cymbalta] 60 mg PO HS 08/07/21 [History] Biotin 5 mg PO DAILY 08/14/21 [History] Calcium Carbonate [Calcium] 600 mg PO DAILY 12/22/22 [History] Vitamin B Complex 1 cap PO DAILY 12/22/22 [History] Furosemide [Lasix] 40 mg PO DAILY 05/22/23 [History] Vitamin D3(Unknown Dose) 1 tab PO DAILY 05/22/23 [History] traZODone HCL 200 mg PO HS 05/22/23 [History] Apixaban [Eliquis] 2.5 mg PO BID tab 06/03/23 [Rx] Cefdinir [Omnicef] 300 mg PO BID 5 Days #10 cap 06/03/23 [Rx] HYDROcodone/APAP 5-325MG [Hopkins 5-325] 1 tab PO BID 3 Days #6 tab 06/03/23 [Rx] Metoprolol Tartrate [Lopressor] 100 mg PO BID tab 06/03/23 [Rx] Spironolactone [Aldactone] 25 mg PO DAILY tab 06/03/23 [Rx] Thiamine [Vitamin B-1] 100 mg PO DAILY tab 06/03/23 [Rx] Valsartan [Diovan] 320 mg PO DAILY tab 06/03/23 [Rx] Follow up Appointment(s)/Referral(s): Rl Ellis DO [Primary Care Provider] - 1-2 days Discharge Disposition: TRANSFER TO SNF/ECF
--- NOTE | 2023-06-03 12:36 | P.PN ---
Subjective Progress Note Date: 06/03/23 Principal diagnosis: Reason for follow-up is E coli pyelonephritis and bacteremia Patient is a 62 year old female with a past medical history significant for diabetes mellitus hypertension [place], seizure disorder presenting to the hospital for evaluation of right flank pain, patient has been diagnosed with right-sided pyelonephritis and did have E. coli bacteremia. On today's evaluation that is 06/03/2023, the patient remains to be afebrile, the patient is breathing comfortably on room air and the patient denies any shortness of breath, the patient denies chest pain or any cough , patient denies abdominal pain, no nausea/vomiting and no diarrhea, patient is feeling better and wants to go home Patient white count is 6.4, creatinine is 0.65 as of 06/02/2023, abdominal ultrasound with no evidence of obstructive uropathy blood culture with gram- negative bacilli urine culture with E. coli that is sensitive pathogen Objective - Vital Signs Vital signs: Vital Signs Temp 98.9 F 06/03/23 08:35 Pulse 83 06/03/23 08:35 Resp 17 06/03/23 08:35 BP 178/79 06/03/23 08:35 Pulse Ox 98 06/03/23 08:35 FiO2 Intake & Output 06/02/23 06/03/23 06/03/23 18:59 06:59 18:59 Intake Total 200 550 Output Total 300 Balance -100 550 Weight 101.8 kg Intake: IV 200 550 0.9 @ 50 ml/hr IV 200 550 Output: Urine 300 Other: Voiding Method External Catheter External Catheter # Voids 1 # Bowel Movements 1 - Exam GENERAL DESCRIPTION: A middle-aged female lying in bed in no distress RESPIRATORY SYSTEM: Unlabored breathing , decreased breath sound at the bases HEART: S1 S2 regular rate and rhythm , ABDOMEN: Soft , no tenderness EXTREMITIES: No edema feet - Labs CBC & Chem 7: 06/02/23 03:05 06/02/23 03:05 Labs: Abnormal Lab Results - Last 24 Hours (Table) 06/02/23 06/02/23 06/02/23 Range/Units 11:16 16:21 20:04 POC Glucose (mg/dL) 144 H 151 H 147 H (70-110) mg/dL 06/03/23 Range/Units 06:48 POC Glucose (mg/dL) 139 H (70-110) mg/dL Assessment and Plan (1) Gram-negative bacteremia Current Visit: Yes Status: Acute Code(s): R78.81 - BACTEREMIA SNOMED Code(s): 840210281832 (2) Urinary tract infection Current Visit: Yes Status: Acute Code(s): N39.0 - URINARY TRACT INFECTION, SITE NOT SPECIFIED SNOMED Code(s): 09779010 Plan: 1patient presented to the hospital with sepsis in this patient who did have a elevated white count and tachycardia elevated lactic acid has been complaining of right flank pain positive UA likely complicated UTI 2blood culture positive for gram-negative bacilli source is likely urinary 3- ultrasound of the kidney and bladder did not show any obstructive uropathy 4patient has shown clinical improvement she will finish therapy with oral Ceftin 5 days on discharge discussed with the admitting team working on discharge Dictation was produced using [employer] dictation software. please excuse any grammatical, word or spelling errors. Time with Patient: Less than 30
--- NOTE | 2023-06-03 12:38 | P.PN ---
Subjective Progress Note Date: 06/03/23 This is a 62-year-old female patient who presented to the emergency room on 05/22/2023 with complaints of right flank pain. She had a four-day history of ongoing urgency and frequency and hematuria but was unable to see her primary doctor. She was having issues with nausea and vomiting as well. She has a history of diabetes mellitus, hypertension, diabetic neuropathy, CVA, alcoholic seizures, kidney stones chronic and ongoing tobacco dependence, marijuana use, daily heavy alcohol use admitting to a fifth of whiskey a day. Her last drink was earlier in the day on the . Computed tomography scan of the abdomen and pelvis revealed inflammation changes around the right kidney without evidence of obstructing calculus. Mild dilatation of the collecting system. Correlate for recently passed renal calculus. Nodular liver contour with caudate lobe hypertrophy findings compatible with cirrhosis. Ultrasound of the kidneys and bladder revealed no evidence of obstructive uropathy. She was admitted to the regular medical floor with urinary tract infection, acute kidney injury and dehydration. At approximately 6:00 last evening the patient developed hypertension, tachycardia, hallucinations and a CIWA scale score greater than 15. The patient was transferred to the intensive care unit and initiated on Precedex infusion. She is seen today in consultation. She is arousable, oriented, calm and cooperative. Remains on Precedex at 0.3 mcg/kg per hour. She has normal saline and 130 ML's per hour. She had issues with atrial fibrillation with a rapid ventricular response and required Cardizem drip and hypotension with norepinephrine briefly. Both drips are currently on pause. White count 7.2. Hemoglobin 12.0. Platelets 36,000. Arterial blood gases a PaO2 of 82, pCO2 29 and a pH of 7.44 and 44% FiO2. Sodium 125. Potassium 3.9. Bicarb 14. BUN 32. Creatinine 1.63. Glucose 127. She is on antibiotics in the form of ceftriaxone. On today's evaluation of 05/25/2023, the patient is being seen for a follow-up. This is a very pleasant 60-year-old female patient, who presented to us with a urine checked infection and sepsis. She is currently septic with a gram- negative bacillus in her blood and the blood cultures have confirmed the finding. CAT scan of the abdomen and pelvis that was done on 05/22/2023 showed inflammatory changes in the right kidney without evidence of any obstructive calculus. There is also mild dilatation of the collecting duct indicating poss ibility of a passed renal calculus. She also has underlying liver cirrhosis as the patient is an alcoholic. She has mild cardiomegaly. She has moderate atherosclerotic changes and a complex renal cysts. Ultrasound of the abdomen was also done that showed no evidence of any hydronephrosis. For now, the patient is on IV fluids and she is on 0.9 at 130 mL an hour. She has been adequately resuscitated. She is on no pressors at this point in time. Antibiotic coverage is with IV Rocephin and she is receiving 2 g every 24 hours At the same time, the patient is encephalopathic and she is interviewed and. She is alert and oriented 1. The patient is off Precedex for now. She is receiving Haldol and Ativan and morphine as needed. She is not awake enough to have her breakfast at this point in time. She is quite lethargic and somnolent. She is arousable however. She is moving all 4 extremities. She has a congested cough. The echoes at 4 with a hemoglobin of 11.1 and a platelet count is chronically low at 32 with some interval drop in the platelet count. No evidence of any bleeding. Had acute kidney injury is also improving. Creatinine is down to 1.23 from as high as 1.9 with a BUN of 32. Serum bicarb is at 16 with a sodium level of 129 and a potassium level of 4.4. Her last echocardiogram was on 03/11/2023 and that showed an ejection fraction of 60-65%. She has multiple scratches in her lower extremities and she states that she has 18 cats at home 05/26/2023, the patient remains confused. Occasional yelling out and agitation. Overnight, she received a total of 3 mg of Ativan and this morning she is essentially calm and quiet and relaxing. No signs of any respiratory distress. She remains on oxygen at 2 L nasal cannula. She remains on IV Rocephin re garding her sepsis and the blood culture was positive with E. coli sensitive to IV Rocephin which is being on a 2 g every 24 hours. The white cell count at 6.8 with a hemoglobin of 12.1. Platelet counts were low and we're awaiting a follow-up platelet count from today. Sodium level is at 128 and the patient is currently on normal saline at the rate of 130 mL an hour. Potassium level needs to be replaced at 3.0 and the serum bicarb is at 60 with a BUN of 25 and a creatinine of 0.9. Ammonia level was less than 9. Echocardiogram was completed yesterday and the patient was found to have a preserved LV function with an EF of around 55-60%. No significant valvular abnormalities and the patient is not taking any form of pressors at this point in time. 05/27/2023, the patient remains lethargic. Less confused compared to yesterday. Upon frequent trials, she was able to state location and name and birthdate. She seems to be more improved compared to yesterday although she still having episodes of confusion. Overall, more cooperative compared to yesterday. He received a total of 2 mg of Ativan overnight. Remains on IV Rocephin. Afebrile. Hemodynamically stable. Still on a bicarb infusion rate of 75 mL an hour. Serum bicarbs up to 24. Sodium is at 1:30 with a potassium level of 3.2. The white cell count is 9 with a hemoglobin 12.7 and the patient's platelet count is at 60. She has been on oxygen and she is currently on 2 L nasal cannula. Oral intake is quite diminished at this point in time. There is still lethargic and sleepy. Nevertheless, she is arousable. She was able to have a full breakfast today. She was fed by the nursing staff. She has weakness in her upper extremities. Overall, quite debilitated and still profoundly weak. She sleeps a lot. No agitation. Overnight, the patient went into atrial fibrillation with rapid ventricular response. She was given Cardizem drip and she was also given by mouth Lopressor. A total of 100 mg P the rate is controlled for now. She remains itchy fibrillation. Note that echocardiogram has been essentially within normal limits and the patient has normal lipid ejection fraction. The patient is afebrile. She is hemodynamically stable. She is on IV fluids with normal saline at the rate of 40 mL an hour. The white cell cause of 10.2 with a hemoglobin of 11.6. BUN is 18 with a creatinine of 0.7 and sodium levels of 133 and a potassium level is at 3.9. Her most recent chest x-ray from 05/26/2023 showed small bilateral pleural effusions more so on the right. She is currently on oxygen at 4 L nasal cannula. She remains on IV Rocephin regarding her E. coli sepsis. Platelet counts continue to improve. On 05/29/23, the patient is being seen for a FU. She is still lethargic and encephalopathic. She is having some increased anxiety and panic attacks and episodes of restlessness and agitation. The patient remains on Precedex at 0.4 mcg/kg/m. On and off, she is also requiring Ativan. Weak, lethargic, yet arousable and communicates. She is able to drink water intake pills and food orally. No aspiration. The white cell count of 7.6, hemoglobin 11.5 and a platelet count of 109. Sodium is at 132 with a BUN of 15 and a creatinine of 0.6. The chest x-ray shows limited bibasilar pulmonary infiltrates and effusion. There is diffuse increased interstitial markings bilaterally. The patient remains on IV Rocephin. Her current cardiac rhythm is A. fib with a controlled rate and the patient is currently on anticoagulation with Eliquis. As mentioned, she is able to take her all medications. This includes trazodone 200 mg at bedtime, Cymbalta 60 mg by mouth daily on 05/30/23, the patient seems to be much more awake and communicating. Overnight, she required 1 mg of Ativan and we restarted back on Precedex which is currently running at 0.8 mcg/kg/h. She is doing much more comfortable at this point in time. She is on oxygen at 2 L nasal cannula. Her pulse ox is 97%. She did encounter elevated blood pressure and we note that she was in excess of fluid overload. She was given a dose of Lasix 40 mg IV and she produced approximately 2 L of urine output immediately. She also encountered A. fib/RVR yesterday. She was placed on Cardizem drip for rate control and she is currently off the Cardizem drip. She remains in atrial fibrillation with a controlled rate at this point in time. Blood work from today shows abdominal discomfort 6.7, hemoglobin 11.7 and platelet count is 111. BUN is 12 with a creatinine 0.6 and a sodium level is at 1:30. She remains on IV Rocephin regarding her UTI sepsis. She is afebrile. She is on no pressors at this point. IV fluids are KVO. She is tolerating diet. She is on anticoagulation with Eliquis 2.5 mg twice a day. She is also on Cymbalta 60 mg by mouth daily, and trazodone 200 mg at bedtime. She is on metoprolol 100 mg by mouth twice a day for rate control. Cardizem drip is discontinued for now. 05/31/2023, the patient is being seen for a follow-up. Doing well. No specific complaints. Mental status is gradually improving. She remains on Precedex which should be weaned off by today. No agitation. Level of alertness is improved. No focal neurological deficits. The white cell count is at 6.6, hemoglobin 11.8 and a platelet count is 104. Sodium level is 128, potassium levels at 4.4, bicarb is 26 and the chloride is 96. The patient remains on anticoagulation with Eliquis 2.5 mg by mouth twice a day. She remains on metoprolol 100 mg by mouth twice a day for rate control. 06/01/2023, patient was evaluated today in the ICU, she is on room air, does not seem to be in any distress, however the patient is still receiving Precedex at 0.3 mcg/kg/h. Has been on and off Precedex intermittently for the last few days. Clinically the patient is doing great this morning, and we'll try to discontinue Precedex again. He remains on ceftriaxone for her E. coli bacteremia and urinary tract infection/sepsis sodium is 127. Patient is receiving IV fluid in the form of 0.9 normal saline. She has a bit of a right flank pain, but overall the patient is doing much better, and responding well to treatment. CBC is relatively normal WBC count is 6.1 hemoglobin is 10.9 have basic metabolic profile is normal except for sodium of 127.1 last chest x-ray done over a week ago showed evidence of mild congestive heart failure and bilateral pleural effusions. Patient was seen again today on 06/02/23, patient remains in the ICU, she is now off the Precedex, she remains on IV fluid at 50 mL per hour in the form of 0.9 normal saline, patient is doing much better, breathing fine, denies any specific complaints. Patient did not sleep well last night, and apparently according to the patient and takes normally 400 mg of trazodone every night to help her sleep. She is here now on only 200 mg, and I went ahead and increased her dose and took her off Seroquel. Patient is hemodynamically stable, her labs are basically unremarkable except for sodium remains at bit low at 128, it was 127 yesterday. Remains on antibiotics for gram-negative bacteremia and urinary tract infection continues to have minimal right sided flank pain. Patient was transitioned to oral Omnicef today by infectious disease The patient is seen today 06/03/2023 in follow-up on the regular medical floor. She was transferred out of the ICU earlier this morning. She is currently resting comfortably in bed. Awake and alert in no acute distress. She remains quite weak and debilitated. She is alert and oriented. She is maintaining O2 saturations in the upper 90s on room air. Afebrile. She was initially treated for sepsis secondary to 3 she E. coli urinary tract infection and positive blood cultures. She has completed a course of antibiotics. Blood sugar 139. She remains anticoagulated with Eliquis. Objective - Vital Signs Vital signs: Vital Signs Temp 98.9 F 06/03/23 08:35 Pulse 83 06/03/23 08:35 Resp 17 06/03/23 08:35 BP 178/79 06/03/23 08:35 Pulse Ox 98 06/03/23 08:35 FiO2 Intake & Output 06/02/23 06/03/23 06/03/23 18:59 06:59 18:59 Intake Total 200 550 Output Total 300 Balance -100 550 Weight 101.8 kg Intake: IV 200 550 0.9 @ 50 ml/hr IV 200 550 Output: Urine 300 Other: Voiding Method External Catheter External Catheter # Voids 1 # Bowel Movements 1 - Exam GENERAL EXAM: Alert, weak, cooperative 62-year-old female, on room air, comfortable in no apparent distress. HEAD: Normocephalic. EYES: Normal reaction of pupils, equal size. NOSE: Clear with pink turbinates. THROAT: No erythema or exudates. NECK: No masses, no JVD. CHEST: No chest wall deformity. LUNGS: Equal air entry with no crackles, wheeze, rhonchi or dullness. CVS: S1 and S2 normal with no audible murmur, regular rhythm. ABDOMEN: No hepatosplenomegaly, normal bowel sounds, no guarding or rigidity. SPINE: No scoliosis or deformity SKIN: No rashes CENTRAL NERVOUS SYSTEM: No focal deficits, tone is normal in all 4 extremities. EXTREMITIES: There is no peripheral edema. No clubbing, no cyanosis. Peripheral pulses are intact. - Labs CBC & Chem 7: 06/02/23 03:05 06/02/23 03:05 Labs: Abnormal Lab Results - Last 24 Hours (Table) 06/02/23 06/02/23 06/03/23 Range/Units 16:21 20:04 06:48 POC Glucose (mg/dL) 151 H 147 H 139 H (70-110) mg/dL Assessment and Plan Assessment: Acute alcohol withdrawal syndrome requiring Precedex infusion and ICU management. Patient admits to one fifth of whiskey a day. Recovered Hyponatremia secondary to above Cirrhosis secondary to above Acute sepsis secondary to E. coli, treated Acute urinary tract infection secondary to E. coli, treated Acute kidney injury secondary to dehydration, recovered Right flank pain with hematuria, possibly recent kidney stone passed Hypertension Diabetes mellitus Diabetic neuropathy History of CVA/TIA History of seizure secondary to alcohol withdrawal History of anxiety/depression History of marijuana use Chronic and ongoing tobacco dependence aircraft Plan: The patient was seen and evaluated Medications and labs reviewed Stable and on room air Calm and cooperative Plan is for subacute rehabilitation post discharge This patient was seen independently by the nurse practitioner I have personally seen and examined the patient, performed the documentation and the assessment and plan as written. Number of minutes spent on the visit: 22.
[2023-06-03 12:50] LABS: Glucose,Whole Blood 119 mg/dL (70-110)
[2023-06-03 13:46] VITALS: BP 172/85; PULSE 72; BMI 36.2
--- NOTE | 2023-06-07 10:42 | CDI ---
Documentation Clarification Form Date: 06/07/2023 10:22:03 AM From: Ana Person Phone: Admit Date: 05/23/2023 01:16:00 AM Patient Name: Anupama Howell Visit Number: [id number] Discharge Date: 06/03/2023 02:26:00 PM ATTENTION: The Clinical Documentation Specialists (CDI) and [facility] Coding Staff appreciate your assistance in clarifying documentation. Please respond to the clarification below the line at the bottom and electronically sign. The CDI & [facility] Coding staff will review the response and follow-up if needed. Please note: Queries are made part of the Legal Health Record. If you have any questions, please contact the author of this message via ITS. Dr. Silva Cook Hypotension is documented in the Consult 05/24. Additional clarification regarding this diagnosis is requested. History/Risk Factors: 62yo F, Severe sepsis d/t E. Coli UTI, toxic/met encephalopathy, A Fib, DMII w neuropathy,HTN,HxCVA,chronic thrombocytopenia, RORY, Hx alcoholic seizures, smoker,marijuana use, cirrhosis d/t daily heavyalcohol use Clinical Indicators: VS: 97.9 F 103 H 40 H 141/92 94 L WBC: 7.2 Hgb 12.0 Plts 36,000 Bicarb 14 BUN 32 Creatinine 1.63 Glucose 127 Potassium 3.9 FiO2 44% ABG: PaO2 82 pCO2 29 pH 7.44 FiO2 44% Na 125 Treatment: norepinephrinebriefly Can the hypotension be further specified? [y ] Severe sepsis with shock [ ] Orthostatic Hypotension [ ] Other Condition, please specify [ ] Unable to determine (Template Last Revised: September 2020) MTDD
== END 2023-06-03 14:26 | DRG 871 ==
LOC: EC 20:44 → OBSVTOIN 05-23 01:16 → 3SCARD 05-23 01:16 → 2SICU 05-23 18:33 → 5NMEDONC 06-03 08:24
PROVIDERS: ADMIT Family Medicine; ATTEND Family Medicine
PROC: HZ2ZZZZ Detoxification Services for Substance Abuse Treatment (ICD-10-PCS; principal; 2023-05-24)
PROC: 3E033XZ Introduction of Vasopressor into Peripheral Vein, Percutaneous Approach (ICD-10-PCS; 2023-05-24)
DX: A41.51 Sepsis due to Escherichia coli [E. coli] (principal); G92.8 Other toxic encephalopathy; R65.21 Severe sepsis with septic shock; E87.20 Acidosis, unspecified; N17.9 Acute kidney failure, unspecified; I48.19 Other persistent atrial fibrillation; E87.1 Hypo-osmolality and hyponatremia; I50.32 Chronic diastolic (congestive) heart failure; F10.239 Alcohol dependence with withdrawal, unspecified; N12 Tubulo-interstitial nephritis, not specified as acute or chronic; I11.0 Hypertensive heart disease with heart failure; E11.42 Type 2 diabetes mellitus with diabetic polyneuropathy; K70.30 Alcoholic cirrhosis of liver without ascites; D69.59 Other secondary thrombocytopenia; F32.A Depression, unspecified; E86.0 Dehydration; R31.9 Hematuria, unspecified; I25.10 Atherosclerotic heart disease of native coronary artery without angina pectoris; N28.1 Cyst of kidney, acquired; E86.1 Hypovolemia; F41.1 Generalized anxiety disorder; F41.0 Panic disorder [episodic paroxysmal anxiety]; E87.6 Hypokalemia; N13.9 Obstructive and reflux uropathy, unspecified; F51.04 Psychophysiologic insomnia; F17.210 Nicotine dependence, cigarettes, uncomplicated; I25.2 Old myocardial infarction; Z86.73 Personal history of transient ischemic attack (TIA), and cerebral infarction without residual deficits; Z91.81 History of falling; Z87.820 Personal history of traumatic brain injury; Z79.899 Other long term (current) drug therapy; Z79.84 Long term (current) use of oral hypoglycemic drugs; Z79.891 Long term (current) use of opiate analgesic; Z88.1 Allergy status to other antibiotic agents; Z91.041 Radiographic dye allergy status; Z91.013 Allergy to seafood; Z79.01 Long term (current) use of anticoagulants
CPT/HCPCS: 36415; 36600; 71045; 74176; 76770; 80048; 80053; 80306; 80320; 81001; 82140; 82805; 83036; 83605; 83735; 84132; 84145; 85025; 85027; 87040; 87077; 87086; 87186; 93306; 94760; 96361; 96374; 96375; 99285

== ENCOUNTER 2023-09-22 02:15 | Emergency (ER) | payer MEDICARE ==
[2023-09-22 02:40] VITALS: BP 127/70; PULSE 70; RESP 20; TEMP 98.3
[2023-09-22] MEDS: NA PHOS,M-B/NA PHOS,DI-BA 133 ML ENEMA RECTAL STA (03:49)
--- NOTE | 2023-09-22 03:55 | ED ---
Abdominal Pain HPI - General Chief Complaint: Abdominal Pain Stated Complaint: constipation Time Seen by Provider: 09/22/23 02:21 Source: patient, EMS Mode of arrival: EMS - History of Present Illness Initial Comments: 63-year-old female presenting with chief complaint of constipation. Patient reports that she has not had a bowel movement in 9 days. She is having abdominal distention and discomfort. Patient does admit to drinking "a couple of beers" tonight. She claims that she thought it would help with her constipation. No nausea or vomiting. No fevers. States that she has been taking Dulcolax. She is requesting magnesium citrate - Related Data Home Medications Medication Instructions Recorded Confirmed Multivit with Calcium,Iron,Min 1 tab PO DAILY 05/18/19 05/22/23 [Women's Multivitamin] metFORMIN HCL [Glucophage] 500 mg PO BID 08/31/20 05/22/23 DULoxetine HCL [Cymbalta] 60 mg PO HS 08/07/21 05/22/23 Biotin 5 mg PO DAILY 08/14/21 05/22/23 Calcium Carbonate [Calcium] 600 mg PO DAILY 12/22/22 05/22/23 Vitamin B Complex 1 cap PO DAILY 12/22/22 05/22/23 Furosemide [Lasix] 40 mg PO DAILY 05/22/23 05/22/23 Vitamin D3(Unknown Dose) 1 tab PO DAILY 05/22/23 05/22/23 traZODone HCL 200 mg PO HS 05/22/23 05/22/23 Previous Rx's Medication Instructions Recorded Apixaban [Eliquis] 2.5 mg PO BID tab 06/03/23 Cefdinir [Omnicef] 300 mg PO BID 5 Days #10 cap 06/03/23 HYDROcodone/APAP 5-325MG [[place] 1 tab PO BID 3 Days #6 tab 06/03/23 5-325] Metoprolol Tartrate [Lopressor] 100 mg PO BID tab 06/03/23 Spironolactone [Aldactone] 25 mg PO DAILY tab 06/03/23 Thiamine [Vitamin B-1] 100 mg PO DAILY tab 06/03/23 Valsartan [Diovan] 320 mg PO DAILY tab 06/03/23 Allergies Allergy/AdvReac Type Severity Reaction Status Date / Time azithromycin [From Zithromax] Allergy "had very Verified 09/22/23 02:20 bad thrush" Iodinated Contrast Media Allergy Anaphylaxis- Verified 09/22/23 02:20 [Iodinated Contrast Media - Lungs IV Dye] filled up with fluid shellfish derived [Shellfish] Allergy Swelling, Verified 09/22/23 02:20 NAUSEA pregabalin [From Lyrica] AdvReac Nausea & Verified 09/22/23 02:20 Vomiting, dizziness Review of Systems ROS Statement: Those systems with pertinent positive or pertinent negative responses have been documented in the HPI. ROS Other: All systems not noted in ROS Statement are negative. Past Medical History Past Medical History: Cancer, Heart Failure, CVA/TIA, Diabetes Mellitus, Hypertension, Myocardial Infarction (VT), Musculoskeletal Disorder, Neurologic Disorder, Seizure Disorder Additional Past Medical History / Comment(s): Neuropathy of lower extremities and hands, bilateral carpal tunnel, hx CVA in 2002, affected right eye vision, now resolved, still has numbness in right hand, hx TIA's and seizures due to alcoholism, none in yrs, hx of a concussion from a fall in 2010, balance issues from Neuropathy, hx of treatment for TB at 5 yrs old, spot on liver, hx rib and left ankle fractures, hx squamous cell cancer on left forearm and right arm, current kidney stones and gallstones. Last Myocardial Infarction Date:: 2014 per EKG History of Any Multi-Drug Resistant Organisms: VRE Date of last positivie culture/infection: 07/01/23 MDRO Source:: Urine-VRE Past Surgical History: Section, Cholecystectomy, Hernia Repair, Orthopedic Surgery, Tonsillectomy Additional Past Surgical History / Comment(s): Ventral hernia repair X4, Section X2, debridements of right foot and abdomen, colonoscopy, laparoscopy, seromas drained X2, ganglion cysts removed, left squamous cell cancer removed, cataracts removed, EGD. Past Anesthesia/Blood Transfusion Reactions: No Reported Reaction, Motion Sickness Past Psychological History: Anxiety, Depression Smoking Status: Current every day smoker Past Alcohol Use History: Abuse, Daily, Heavy Past Drug Use History: Marijuana - Past Family History Father Family Medical History: No Reported History Additional Family Medical History / Comment(s): . Mother Family Medical History: Cancer Additional Family Medical History / Comment(s): breast cancer Brother(s) Additional Family Medical History / Comment(s): Patient has 1 brother that from a motor vehicle accident involving alcohol. Patient has no sisters. Patient has 1 son 21 years old and one daughter 23 years old and she has no contact with her children. General Exam General appearance: alert, in no apparent distress Head exam: Present: atraumatic, normocephalic Eye exam: Present: normal appearance, EOMI Neck exam: Present: normal inspection Respiratory exam: Present: normal lung sounds bilaterally. Absent: respiratory distress, wheezes, rales, rhonchi, stridor Cardiovascular Exam: Present: regular rate, normal rhythm, normal heart sounds. Absent: systolic murmur, diastolic murmur, rubs, gallop, clicks GI/Abdominal exam: Present: soft, distended. Absent: tenderness, guarding, rebound, rigid Neurological exam: Present: alert, oriented X3 Psychiatric exam: Present: normal affect, normal mood Skin exam: Present: warm, dry Course Vital Signs 09/22/23 02:17 Temperature 98.3 F Pulse Rate 70 Respiratory 20 Rate Blood Pressure 127/70 O2 Sat by Pulse 97 Oximetry Medical Decision Making - Medical Decision Making Was pt. sent in by a medical professional or institution (, PA, INCLUSION TEACHER, urgent care, hospital, or fdc...) When possible be specific @ -No Did you speak to anyone other than the patient for history (EMS, parent, family, police, friend...)? What history was obtained from this source @ -No Did you review nursing and triage notes (agree or disagree)? Why? @ -I reviewed and agree with nursing and triage notes Were old charts reviewed (outside hosp., previous admission, EMS record, old EKG, old radiological studies, urgent care reports/EKG's, fdc records)? Report findings @ -No old charts were reviewed Differential Diagnosis (chest pain, altered mental status, abdominal pain women, abdominal pain men, vaginal bleeding, weakness, fever, dyspnea, syncope, headache, dizziness, GI bleed, back pain, seizure, CVA, palpatations, mental health, musculoskeletal)? @ -MDM Differential Abdominal Pain Women: Appendicitis, Cholecystitis, diverticulosis, ischemic bowel, pancreatitis, hepatitis, UTI, gastroenteritis, AAA, incarcerated hernia, bowel obstruction, constipation, inflammatory bowel, hepatitis, peptic ulcer disease, splenic infarction, perforated viscus, vulvitis, ovarian torsion, PID, kidney stone, john centa abruption... This is not meant to be an all-inclusive list EKG interpreted by me (3pts min.). @ -As above X-rays interpreted by me (1pt min.). @ -X-ray shows moderate amount of stool in the colon CT interpreted by me (1pt min.). @ -None done U/S interpreted by me (1pt. min.). @ -None done What testing was considered but not performed or refused? (CT, X-rays, U/S, labs)? Why? @ -None What meds were considered but not given or refused? Why? @ -None Did you discuss the management of the patient with other professionals (professionals i.e. , PA, INCLUSION TEACHER, lab, RT, psych nurse, medical social consultant, radio adjuster, teacher, staff weapons officer, counseling case manager)? Give summary @ -No Was smoking cessation discussed for >3mins.? @ -No Was critical care preformed (if so, how long)? @ -No Were there social determinants of health that impacted care today? How? (Homelessness, low income, unemployed, alcoholism, drug addiction, transportation, low edu. Level, literacy, decrease access to med. care, fdc, rehab)? @ -No Was there de-escalation of care discussed even if they declined (Discuss DNR or withdrawal of care, Hospice)? DNR status @ -No What co-morbidities impacted this encounter? (DM, HTN, Smoking, COPD, CAD, Cancer, CVA, ARF, Chemo, Hep., AIDS, mental health diagnosis, sleep apnea, morbid obesity)? @ -None Was patient admitted / discharged? Hospital course, mention meds given and route, prescriptions, significant lab abnormalities, going to OR and other pertinent info. @ -63-year-old female presenting chief complaint of constipation. Has not had a bowel movement in 9 days. On physical exam abdomen is distended. KUB x-ray shows moderate amount of stool within the colon. Patient is given a Fleet enema and magnesium citrate. She is educated on high-fiber diet. She is discharged. Awaiting wheelchair van in the a.m. Follow-up with PCP. Report back to ER with any new or worsening symptoms. Discussed return parameters and answered all questions. Patient conveyed verbal understanding and agreed to the plan. I discussed this case in detail with my attending Dr. Rosario Undiagnosed new problem with uncertain prognosis? @ -No Drug Therapy requiring intensive monitoring for toxicity (Heparin, Nitro, Insulin, Cardizem)? @ -No Were any procedures done? @ -No Diagnosis/symptom? @ -Constipation Acute, or Chronic, or Acute on Chronic? @ -Acute Uncomplicated (without systemic symptoms) or Complicated (systemic symptoms)? @ -Uncomplicated Side effects of treatment? @ -No Exacerbation, Progression, or Severe Exacerbation? @ -No Poses a threat to life or bodily function? How? (Chest pain, USA, VT, pneumonia, PE, COPD, DKA, ARF, appy, cholecystitis, CVA, Diverticulitis, Homicidal, Suicidal, threat to staff... and all critical care pts) @ -No Disposition Clinical Impression: Constipation Disposition: HOME SELF-CARE Condition: Good Instructions (If sedation given, give patient instructions): Constipation (ED), High Fiber Diet (ED) Additional Instructions: Follow-up with PCP. Report back to ER with any new or worsening symptoms. Is patient prescribed a controlled substance at d/c from ED?: No Referrals: Rl Ellis DO [Primary Care Provider] - 1-2 days Time of Disposition: 03:55
[2023-09-22] MEDS: MAGNESIUM CITRATE 296 ML BOTTLE PO ONE (04:15)
--- NOTE | 2023-09-22 05:05 | XR ---
EXAM: XR Abdomen, 1 View CLINICAL HISTORY: constipation TECHNIQUE: Frontal supine view of the abdomen/pelvis. COMPARISON: No relevant prior studies available. FINDINGS: Gastrointestinal tract: Moderate amount of stool in the colon. Bones/joints: No acute findings. IMPRESSION: Moderate amount of stool in the colon.
== END 2023-09-22 08:39 | disposition home or self-care (01) ==
LOC: EC 02:15
DX: K59.00 Constipation, unspecified (principal); E11.36 Type 2 diabetes mellitus with diabetic cataract; E11.40 Type 2 diabetes mellitus with diabetic neuropathy, unspecified; F32.A Depression, unspecified; F41.9 Anxiety disorder, unspecified; I11.0 Hypertensive heart disease with heart failure; I25.2 Old myocardial infarction; I50.9 Heart failure, unspecified; F12.90 Cannabis use, unspecified, uncomplicated; F17.200 Nicotine dependence, unspecified, uncomplicated; Z79.84 Long term (current) use of oral hypoglycemic drugs; Z79.899 Other long term (current) drug therapy; Z88.1 Allergy status to other antibiotic agents; Z91.041 Radiographic dye allergy status; Z91.013 Allergy to seafood; Z88.8 Allergy status to other drugs, medicaments and biological substances; Z86.73 Personal history of transient ischemic attack (TIA), and cerebral infarction without residual deficits; Z90.49 Acquired absence of other specified parts of digestive tract
CPT/HCPCS: 74018; 99284

== ENCOUNTER 2023-11-04 02:13 | Emergency (ER) | payer MEDICARE ==
[2023-11-04 03:18] LABS: Basophils # (A) 0.1 k/uL (0-0.2); Basophils % (A) 1 %; Eosinophils # (A) 0.2 k/uL (0-0.7); Eosinophils % (A) 3 %; HGB 13.1 gm/dL (11.4-16.0); Lymphocytes # (A) 3.5 k/uL (1.0-4.8); Lymphocytes % (A) 58 %; MCH 33.3 pg (25.0-35.0); MCHC 35.4 g/dL (31.0-37.0); MCV 94.1 fL (80.0-100.0); Mean Platelet Volume 8.3; Monocytes # (A) 0.2 k/uL (0-1.0); Monocytes % (A) 4 %; Neutrophils % (A) 34 %; Platelet Count 194 k/uL (150-450); RBC 3.93 m/uL (3.80-5.40); RDW 12.7 % (11.5-15.5)
[2023-11-04 03:38] LABS: ALT 18 U/L (4-34); AST 29 U/L (14-36); African American GFR (CKD) 87 (>60 ml/min/1.73 sqM); Albumin 4.1 g/dL (3.5-5.0); Alcohol 64 mg/dL; Alkaline Phosphatase 75 U/L (38-126); Anion Gap 9 mmol/L; Blood Urea Nitrogen 11 mg/dL (7-17); Calcium 9.9 mg/dL (8.4-10.2); Carbon Dioxide 20 mmol/L (22-30); Chloride 103 mmol/L (98-107); Glucose 99 mg/dL (74-99); Non-African American GFR(CKD) 76 (>60 ml/min/1.73 sqM); Sodium 132 mmol/L (137-145); Total Bilirubin 0.7 mg/dL (0.2-1.3); Total Protein 6.9 g/dL (6.3-8.2)
--- NOTE | 2023-11-04 03:54 | CT ---
EXAM: CT Head Without Intravenous Contrast CLINICAL HISTORY: ITS.REASON CT Reason: worst headache of life TECHNIQUE: Axial computed tomography images of the head/brain without intravenous contrast. CTDI is 49.2 mGy and DLP is 1222 mGy-cm. This CT exam was performed using one or more of the following dose reduction techniques: automated exposure control, adjustment of the mA and/or kV according to patient size, and/or use of iterative reconstruction technique. COMPARISON: No relevant prior studies available. FINDINGS: Brain: No hemorrhage or mass effect. Ventricles: No hydrocephalus. Bones/joints: Unremarkable. Soft tissues: Unremarkable. Sinuses: No air fluid level. Mastoid air cells: Clear. IMPRESSION: No acute hemorrhage, hydrocephalus, or mass effect.
[2023-11-04] MEDS: SODIUM CHLORIDE 0.9% 1,000 ML IV ONE (04:43)
[2023-11-04 06:04] VITALS: BP 188/67; PULSE 69; RESP 15; TEMP 98.1
[2023-11-04 06:21] LABS: Appearance,Urine Clear (Clear); Bacteria,Urine Occasional /hpf; Bilirubin,Urine Negative (Negative); Blood,Urine Negative (Negative); Color,Urine Colorless; Glucose,Urine (UA) Negative (Negative); Ketones,Urine Negative (Negative); Leukocyte Esterase,Urine Trace (Negative); Nitrite,Urine Negative (Negative); PH, Urine 6.5 (5.0-8.0); Protein,Urine Negative (Negative); Specific Gravity,Urine 1.004 (1.001-1.035); Squamous Epithelial Cell,Urine 1 /hpf (0-4); Urobilinogen,Urine <2.0 mg/dL (<2.0); WBC,Urine 5 /hpf (0-5)
--- NOTE | 2023-11-04 06:41 | ED ---
Dizziness HPI - General Chief Complaint: Dizziness Stated Complaint: difficulty urinating Time Seen by Provider: 11/04/23 02:21 Source: patient, EMS Mode of arrival: EMS - History of Present Illness Initial Comments: This patient is a 63-year-old woman who presents to evaluation of dizziness and vertigo symptoms. She states that this has been a problem that has been recurring for probably years, but this episode has been worse going back at 2 to 3 weeks. The patient not able to identify consistently worsening or relieving factors. No headache. She denies injury but admits history of alcohol use and does occasionally fall. No vision change. No head or neck pain. MD Complaint: dizziness Onset/Timin -: week(s) Timing: waxing/waning Description: off-balance History of Same: Yes History of Trauma: Yes Severity: moderate Improves With: remaining still Worsens With: movement Associated Symptoms: denies other symptoms - Related Data Home Medications Medication Instructions Recorded Confirmed Multivit with Calcium,Iron,Min 1 tab PO DAILY 05/18/19 11/05/23 [Women's Multivitamin] DULoxetine HCL [Cymbalta] 60 mg PO HS 08/07/21 11/05/23 Biotin 5 mg PO DAILY 08/14/21 11/05/23 Calcium Carbonate [Calcium] 600 mg PO DAILY 12/22/22 11/05/23 Vitamin B Complex 1 cap PO DAILY 12/22/22 11/05/23 Vitamin D3(Unknown Dose) 1 tab PO DAILY 05/22/23 11/05/23 traZODone HCL 200 mg PO HS 05/22/23 11/05/23 HYDROcodone/APAP 7.5-325MG [[place] 1 tab PO DIRECTED PRN 11/05/23 11/05/23 7.5-325] Previous Rx's Medication Instructions Recorded Metoprolol Tartrate [Lopressor] 100 mg PO BID tab 06/03/23 Thiamine [Vitamin B-1] 100 mg PO DAILY tab 06/03/23 Allergies Allergy/AdvReac Type Severity Reaction Status Date / Time azithromycin [From Zithromax] Allergy "had very Verified 11/05/23 08:22 bad thrush" Iodinated Contrast Media Allergy Anaphylaxis- Verified 11/05/23 08:22 [Iodinated Contrast Media - Lungs IV Dye] filled up with fluid shellfish derived [Shellfish] Allergy Swelling, Verified 11/05/23 08:22 NAUSEA pregabalin [From Lyrica] AdvReac Nausea & Verified 11/05/23 08:22 Vomiting, dizziness Review of Systems ROS Statement: Those systems with pertinent positive or pertinent negative responses have been documented in the HPI. ROS Other: All systems not noted in ROS Statement are negative. Constitutional: Denies: fever, chills Eyes: Denies: vision change ENT: Denies: ear pain, hearing loss, congestion Respiratory: Denies: cough, dyspnea Cardiovascular: Denies: chest pain, syncope Gastrointestinal: Denies: abdominal pain, vomiting, diarrhea Genitourinary: Denies: dysuria, hematuria Musculoskeletal: Denies: back pain Skin: Denies: rash Neurological: Denies: headache, weakness, numbness, confusion Past Medical History Past Medical History: Cancer, Heart Failure, CVA/TIA, Diabetes Mellitus, Hypertension, Myocardial Infarction (MA), Musculoskeletal Disorder, Neurologic Disorder, Seizure Disorder Additional Past Medical History / Comment(s): Neuropathy of lower extremities and hands, bilateral carpal tunnel, hx CVA in 2002, affected right eye vision, now resolved, still has numbness in right hand, hx TIA's and seizures due to alcoholism, none in yrs, hx of a concussion from a fall in 2010, balance issues from Neuropathy, hx of treatment for TB at 5 yrs old, spot on liver, hx rib and left ankle fractures, hx squamous cell cancer on left forearm and right arm, current kidney stones and gallstones. Last Myocardial Infarction Date:: 2014 per EKG History of Any Multi-Drug Resistant Organisms: VRE Date of last positivie culture/infection: 07/01/23 MDRO Source:: Urine-VRE Past Surgical History: Section, Cholecystectomy, Hernia Repair, Orthopedic Surgery, Tonsillectomy Additional Past Surgical History / Comment(s): Ventral hernia repair X4, Section X2, debridements of right foot and abdomen, colonoscopy, laparoscopy, seromas drained X2, ganglion cysts removed, left squamous cell cancer removed, cataracts removed, EGD. Past Anesthesia/Blood Transfusion Reactions: No Reported Reaction, Motion Sickness Past Psychological History: Anxiety, Depression Smoking Status: Current every day smoker Past Alcohol Use History: Abuse, Daily, Heavy Past Drug Use History: Marijuana - Past Family History Father Family Medical History: No Reported History Additional Family Medical History / Comment(s): . Mother Family Medical History: Cancer Additional Family Medical History / Comment(s): breast cancer Brother(s) Additional Family Medical History / Comment(s): Patient has 1 brother that from a motor vehicle accident involving alcohol. Patient has no sisters. Patient has 1 son 21 years old and one daughter 23 years old and she has no contact with her children. General Exam General appearance: alert, appears intoxicated Head exam: Present: atraumatic, normocephalic Eye exam: Present: normal appearance. Absent: scleral icterus, conjunctival injection ENT exam: Present: mucous membranes dry Neck exam: Present: normal inspection Respiratory exam: Present: normal lung sounds bilaterally. Absent: respiratory distress, wheezes, rales, rhonchi, stridor Cardiovascular Exam: Present: regular rate, normal rhythm. Absent: systolic murmur, diastolic murmur, rubs, gallop GI/Abdominal exam: Present: soft. Absent: distended, tenderness, guarding, rebound, rigid, mass Extremities exam: Present: normal inspection, normal capillary refill. Absent: pedal edema, calf tenderness Back exam: Present: normal inspection. Absent: CVA tenderness (R), CVA tenderness (L) Neurological exam: Present: alert, oriented X3, CN II-XII intact, other (Mild ataxia). Absent: motor sensory deficit Skin exam: Present: warm, dry, intact, normal color. Absent: rash Course Vital Signs 11/04/23 11/04/23 02:17 05:39 Temperature 97.8 F 98.1 F Pulse Rate 64 69 Respiratory 18 15 Rate Blood Pressure 152/75 188/67 O2 Sat by Pulse 97 98 Oximetry Medical Decision Making - Medical Decision Making Patient is 63-year-old woman presenting with acute on chronic dizziness. The patient does admit to chronic alcohol use. Patient unsure if there was any fall recently that may have contributed, and therefore CT scan is obtained. The patient had CT of the brain that I interpreted as negative for acute bony injury or intracranial hemorrhage. Was pt. sent in by a medical professional or institution (, PA, VASCULAR SONOGRAPHER, urgent care, hospital, or custodial...) When possible be specific @ -[No] Did you speak to anyone other than the patient for history (EMS, parent, family, police, friend...)? What history was obtained from this source @ -[No] Did you review nursing and triage notes (agree or disagree)? Why? @ -[I reviewed and agree with nursing and triage notes] Were old charts reviewed (outside hosp., previous admission, EMS record, old EKG, old radiological studies, urgent care reports/EKG's, custodial records)? Report findings @ -[No old charts were reviewed] Differential Diagnosis (chest pain, altered mental status, abdominal pain women, abdominal pain men, vaginal bleeding, weakness, fever, dyspnea, syncope, h eadache, dizziness, GI bleed, back pain, seizure, CVA, palpatations, mental health, musculoskeletal)? @ -[Differential Dizziness: Benign paroxysmal positional Vertigo, Menieres disease, otitis media, acoustic neuroma, vertebrobasilar insufficiency, cerebellar stroke, encephalitis, hypovolemic, arrhythmia, coronary artery syndrome, anemia, this is not meant to be an all-inclusive list EKG interpreted by me (3pts min.). @ -[I interpreted as above] X-rays interpreted by me (1pt min.). @ -[None done] CT interpreted by me (1pt min.). @ -[I interpreted as above U/S interpreted by me (1pt. min.). @ -[None done] What testing was considered but not performed or refused? (CT, X-rays, U/S, labs )? Why? @ -[None] What meds were considered but not given or refused? Why? @ -[None] Did you discuss the management of the patient with other professionals (professionals i.e. , PA, VASCULAR SONOGRAPHER, lab, RT, psych nurse, social media designer, manager life, teacher, ski patrol officer, corrections caseworker)? Give summary @ -[No] Was smoking cessation discussed for >3mins.? @ -[No] Was critical care preformed (if so, how long)? @ -[No] Were there social determinants of health that impacted care today? How? (Homelessness, low income, unemployed, alcoholism, drug addiction, transportation, low edu. Level, literacy, decrease access to med. care, group home, rehab)? @ -[No] Was there de-escalation of care discussed even if they declined (Discuss DNR or withdrawal of care, Hospice)? DNR status @ -[No] What co-morbidities impacted this encounter? (DM, HTN, Smoking, COPD, CAD, Cancer, CVA, ARF, Chemo, Hep., AIDS, mental health diagnosis, sleep apnea, morbid obesity)? @ -[Alcohol dependence Was patient admitted / discharged? Hospital course, mention meds given and route, prescriptions, significant lab abnormalities, going to OR and other pertinent info. @ -[hospital course] Undiagnosed new problem with uncertain prognosis? @ -[No] Drug Therapy requiring intensive monitoring for toxicity (Heparin, Nitro, Insulin, Cardizem)? @ -[No] Were any procedures done? @ -[No] Diagnosis/symptom? @ -[Dizziness, acute on chronic Acute, or Chronic, or Acute on Chronic? @ -[default] Uncomplicated (without systemic symptoms) or Complicated (systemic symptoms)? @ -[Uncomplicated Side effects of treatment? @ -[No] Exacerbation, Progression, or Severe Exacerbation? @ -[No] Poses a threat to life or bodily function? How? (Chest pain, USA, MA, pneumonia, PE, COPD, DKA, ARF, appy, cholecystitis, CVA, Diverticulitis, Homicidal, Suicidal, threat to staff... and all critical care pts) @ -[No] - Lab Data Result diagrams: 11/04/23 02:58 11/04/23 02:58 Lab Results 11/04/23 11/04/23 11/04/23 Range/Units 02:58 02:58 02:58 WBC 6.0 (3.8-10.6) k/uL RBC 3.93 (3.80-5.40) m/uL Hgb 13.1 (11.4-16.0) gm/dL Hct 37.0 (34.0-46.0) % MCV 94.1 (80.0-100.0) fL MCH 33.3 (25.0-35.0) pg MCHC 35.4 (31.0-37.0) g/dL RDW 12.7 (11.5-15.5) % Plt Count 194 (150-450) k/uL MPV 8.3 Neutrophils % 34 % Lymphocytes % 58 % Monocytes % 4 % Eosinophils % 3 % Basophils % 1 % Neutrophils # 2.0 (1.3-7.7) k/uL Lymphocytes # 3.5 (1.0-4.8) k/uL Monocytes # 0.2 (0-1.0) k/uL Eosinophils # 0.2 (0-0.7) k/uL Basophils # 0.1 (0-0.2) k/uL Sodium 132 L (137-145) mmol/L Potassium 4.0 (3.5-5.1) mmol/L Chloride 103 (98-107) mmol/L Carbon Dioxide 20 L (22-30) mmol/L Anion Gap 9 mmol/L BUN 11 (7-17) mg/dL Creatinine 0.83 (0.52-1.04) mg/dL Est GFR (CKD-EPI)AfAm 87 (>60 ml/min/1.73 sqM) Est GFR (CKD-EPI)NonAf 76 (>60 ml/min/1.73 sqM) Glucose 99 (74-99) mg/dL Plasma Lactic Acid Severino 1.7 (0.7-2.0) mmol/L Calcium 9.9 (8.4-10.2) mg/dL Total Bilirubin 0.7 (0.2-1.3) mg/dL AST 29 (14-36) U/L ALT 18 (4-34) U/L Alkaline Phosphatase 75 (38-126) U/L Total Protein 6.9 (6.3-8.2) g/dL Albumin 4.1 (3.5-5.0) g/dL Urine Color Urine Appearance (Clear) Urine pH (5.0-8.0) Ur Specific [place] (1.001-1.035) Urine Protein (Negative) Urine Glucose (UA) (Negative) Urine Ketones (Negative) Urine Blood (Negative) Urine Nitrite (Negative) Urine Bilirubin (Negative) Urine Urobilinogen (<2.0) mg/dL Ur Leukocyte Esterase (Negative) Urine WBC (0-5) /hpf Ur Squamous Epith Cells (0-4) /hpf Urine Bacteria (None) /hpf Serum Alcohol 64 mg/dL 11/04/23 Range/Units 05:35 WBC (3.8-10.6) k/uL RBC (3.80-5.40) m/uL Hgb (11.4-16.0) gm/dL Hct (34.0-46.0) % MCV (80.0-100.0) fL MCH (25.0-35.0) pg MCHC (31.0-37.0) g/dL RDW (11.5-15.5) % Plt Count (150-450) k/uL MPV Neutrophils % % Lymphocytes % % Monocytes % % Eosinophils % % Basophils % % Neutrophils # (1.3-7.7) k/uL Lymphocytes # (1.0-4.8) k/uL Monocytes # (0-1.0) k/uL Eosinophils # (0-0.7) k/uL Basophils # (0-0.2) k/uL Sodium (137-145) mmol/L Potassium (3.5-5.1) mmol/L Chloride (98-107) mmol/L Carbon Dioxide (22-30) mmol/L Anion Gap mmol/L BUN (7-17) mg/dL Creatinine (0.52-1.04) mg/dL Est GFR (CKD-EPI)AfAm (>60 ml/min/1.73 sqM) Est GFR (CKD-EPI)NonAf (>60 ml/min/1.73 sqM) Glucose (74-99) mg/dL Plasma Lactic Acid Severino (0.7-2.0) mmol/L Calcium (8.4-10.2) mg/dL Total Bilirubin (0.2-1.3) mg/dL AST (14-36) U/L ALT (4-34) U/L Alkaline Phosphatase (38-126) U/L Total Protein (6.3-8.2) g/dL Albumin (3.5-5.0) g/dL Urine Color Colorless Urine Appearance Clear (Clear) Urine pH 6.5 (5.0-8.0) Ur Specific [place] 1.004 (1.001-1.035) Urine Protein Negative (Negative) Urine Glucose (UA) Negative (Negative) Urine Ketones Negative (Negative) Urine Blood Negative (Negative) Urine Nitrite Negative (Negative) Urine Bilirubin Negative (Negative) Urine Urobilinogen <2.0 (<2.0) mg/dL Ur Leukocyte Esterase Trace H (Negative) Urine WBC 5 (0-5) /hpf Ur Squamous Epith Cells 1 (0-4) /hpf Urine Bacteria Occasional H (None) /hpf Serum Alcohol mg/dL Disposition Clinical Impression: Dizziness Disposition: HOME SELF-CARE Condition: Fair Instructions (If sedation given, give patient instructions): Dizziness (ED) Is patient prescribed a controlled substance at d/c from ED?: No Referrals: Rl Ellis DO [Primary Care Provider] - 1-2 days [place] Rangel MD [REFERRING] - 1-2 days
== END 2023-11-04 08:41 | disposition home or self-care (01) ==
LOC: EC 02:13
DX: R42 Dizziness and giddiness (principal); F10.20 Alcohol dependence, uncomplicated; F17.200 Nicotine dependence, unspecified, uncomplicated; Z88.1 Allergy status to other antibiotic agents; Z91.041 Radiographic dye allergy status; Z91.013 Allergy to seafood; Z88.8 Allergy status to other drugs, medicaments and biological substances; Z86.73 Personal history of transient ischemic attack (TIA), and cerebral infarction without residual deficits; Y90.3 Blood alcohol level of 60-79 mg/100 ml
CPT/HCPCS: 36415; 70450; 80053; 80320; 81001; 83605; 85025; 96360; 99284

== ENCOUNTER 2023-11-05 07:23 | Day surgery (SDC) | payer MEDICARE ==
[2023-11-05] MEDS: LACTATED RINGERS 1,000 ML IV ONE (08:19)
[2023-11-05] MEDS ORDERED: LACTATED RINGERS 1,000 ML IV SCH (08:22)
[2023-11-05] MEDS ORDERED: PROPOFOL 10 MG/ML 20 ML VIAL IV ONE (08:29)
[2023-11-05] MEDS ORDERED: LIDOCAINE 1% INJ 10MG/ML (20 ML MDV) ONE (08:29)
--- NOTE | 2023-11-05 08:34 | P.GSHP ---
History of Present Illness H&P Date: 11/05/23 Chief Complaint: constipationt this is a 63-year-old female presents today for colonoscopy. Patient is issues with constipation.patient states that she has trouble defecating. She states sthis is a change in her bowel habits.r.'s is a change in her bowel habits. Past Medical History Past Medical History: Cancer, Heart Failure, CVA/TIA, Diabetes Mellitus, Hypertension, Myocardial Infarction ([place]), Musculoskeletal Disorder, Neurologic Disorder, Seizure Disorder Additional Past Medical History / Comment(s): Neuropathy of lower extremities and hands, bilateral carpal tunnel, hx CVA in 2002, affected right eye vision, now resolved, still has numbness in right hand, hx TIA's and seizures due to alcoholism, none in yrs, hx of a concussion from a fall in 2010, balance issues from Neuropathy, hx of treatment for TB at 5 yrs old, spot on liver, hx rib and left ankle fractures, hx squamous cell cancer on left forearm and right arm, current kidney stones and gallstones. Last Myocardial Infarction Date:: 2014 per EKG History of Any Multi-Drug Resistant Organisms: VRE Date of last positivie culture/infection: 07/01/23 MDRO Source:: Urine-VRE Past Surgical History: Section, Cholecystectomy, Hernia Repair, Orthopedic Surgery, Tonsillectomy Additional Past Surgical History / Comment(s): Ventral hernia repair X4, Section X2, debridements of right foot and abdomen, colonoscopy, laparoscopy, seromas drained X2, ganglion cysts removed, left squamous cell cancer removed, cataracts removed, EGD. Past Anesthesia/Blood Transfusion Reactions: No Reported Reaction, Motion Sickness Past Psychological History: Anxiety, Depression Smoking Status: Current every day smoker Past Alcohol Use History: Abuse, Daily, Heavy Past Drug Use History: Marijuana - Past Family History Father Family Medical History: No Reported History Additional Family Medical History / Comment(s): . Mother Family Medical History: Cancer Additional Family Medical History / Comment(s): breast cancer Brother(s) Additional Family Medical History / Comment(s): Patient has 1 brother that from a motor vehicle accident involving alcohol. Patient has no sisters. Patient has 1 son 21 years old and one daughter 23 years old and she has no contact with her children. Medications and Allergies Home Medications Medication Instructions Recorded Confirmed Type Multivit with Calcium,Iron,Min 1 tab PO DAILY 05/18/19 11/05/23 History [Women's Multivitamin] DULoxetine HCL [Cymbalta] 60 mg PO HS 08/07/21 11/05/23 History Biotin 5 mg PO DAILY 08/14/21 11/05/23 History Calcium Carbonate [Calcium] 600 mg PO DAILY 12/22/22 11/05/23 History Vitamin B Complex 1 cap PO DAILY 12/22/22 11/05/23 History Vitamin D3(Unknown Dose) 1 tab PO DAILY 05/22/23 11/05/23 History traZODone HCL 200 mg PO HS 05/22/23 11/05/23 History Metoprolol Tartrate [Lopressor] 100 mg PO BID tab 06/03/23 11/05/23 Rx Thiamine [Vitamin B-1] 100 mg PO DAILY tab 06/03/23 11/05/23 Rx HYDROcodone/APAP 7.5-325MG [[place] 1 tab PO DIRECTED PRN 11/05/23 11/05/23 History 7.5-325] Allergies Allergy/AdvReac Type Severity Reaction Status Date / Time azithromycin [From Zithromax] Allergy "had very Verified 11/05/23 08:22 bad thrush" Iodinated Contrast Media Allergy Anaphylaxis- Verified 11/05/23 08:22 [Iodinated Contrast Media - Lungs IV Dye] filled up with fluid shellfish derived [Shellfish] Allergy Swelling, Verified 11/05/23 08:22 NAUSEA pregabalin [From Lyrica] AdvReac Nausea & Verified 11/05/23 08:22 Vomiting, dizziness Surgical - Exam Vital Signs Temp Pulse Resp BP Pulse Ox 98.3 F 68 20 184/83 96 11/05/23 08:13 11/05/23 08:13 11/05/23 08:13 11/05/23 08:13 11/05/23 08:13 - General well developed, well nourished, no distress - Eyes PERRL - ENT normal pinna - Neck no masses - Respiratory normal expansion - Cardiovascular Rhythm: regular - Abdomen Abdomen: soft, non tender Assessment and Plan Assessment: history of constipation. Patient will undergo colonoscopy.
[2023-11-05 08:41] VITALS: TEMP 98.3
--- NOTE | 2023-11-05 08:50 | P.OP ---
Date of Procedure: 11/05/23 Preoperative Diagnosis: constipation Postoperative Diagnosis: internal and external hemorrhoids Procedure(s) Performed: colonoscopy Anesthesia: MAC Surgeon: Reagan Jamies Pathology: none sent Condition: stable Disposition: PACU Description of Procedure: the patient's placed on the endoscopy table in the lateral position. She received IV sedation. Digital rectal exam was performed. Tthis revealed internal/external hemorrhoids.s. The flexible colonoscope was then placed patient anus and passed throughout the entire colon. The ileocecal valve was visualized. The cecum, ascending and transverse colon appeared normal. In the descending and sigmoid: There is some mild diverticular changes. The scope was then brought back the rectum and this appeared normal. Scope was brought to anus and internal and external hemorrhoids were noted.
[2023-11-05 09:02] LABS: Glucose,Whole Blood 135 mg/dL (70-110)
[2023-11-05 09:26] VITALS: BP 144/71; PULSE 59; RESP 16
== END 2023-11-05 09:56 | disposition home or self-care (01) ==
LOC: ORWHC2ENDO 07:23
PROVIDERS: ATTEND Surgery
DX: K64.4 Residual hemorrhoidal skin tags (principal); K64.8 Other hemorrhoids; I11.0 Hypertensive heart disease with heart failure; I50.9 Heart failure, unspecified; I25.2 Old myocardial infarction; G40.909 Epilepsy, unspecified, not intractable, without status epilepticus; F41.9 Anxiety disorder, unspecified; F32.A Depression, unspecified; E11.40 Type 2 diabetes mellitus with diabetic neuropathy, unspecified; F12.90 Cannabis use, unspecified, uncomplicated; F10.90 Alcohol use, unspecified, uncomplicated; F17.200 Nicotine dependence, unspecified, uncomplicated; Z86.73 Personal history of transient ischemic attack (TIA), and cerebral infarction without residual deficits; Z87.442 Personal history of urinary calculi; Z88.1 Allergy status to other antibiotic agents; Z90.49 Acquired absence of other specified parts of digestive tract; Z91.041 Radiographic dye allergy status; Z79.899 Other long term (current) drug therapy; Z91.013 Allergy to seafood; Z88.8 Allergy status to other drugs, medicaments and biological substances; Z79.01 Long term (current) use of anticoagulants; Z79.84 Long term (current) use of oral hypoglycemic drugs
CPT/HCPCS: 45378; J2001; J2704

== ENCOUNTER 2024-07-03 16:11 | Inpatient (IN) | payer MEDICARE ==
[2024-07-03] MEDS: HEPARIN SODIUM 1,000 UN/ML (10ML VL) IVP STA (16:24)
[2024-07-03] MEDS: HEPARIN SODIUM 1,000 UN/ML (10ML VL) IV ONE (16:25)
[2024-07-03] MEDS: ATORVASTATIN 80 MG TAB PO STA (16:25)
[2024-07-03] MEDS: SODIUM CHLORIDE 0.9% 1,000 ML IV STA (16:25)
[2024-07-03 16:32] LABS: Basophils # (A) 0.1 k/uL (0-0.2); Basophils % (A) 1 %; Eosinophils # (A) 0.2 k/uL (0-0.7); Eosinophils % (A) 1 %; HCT 41.2 % (34.0-46.0); HGB 14.2 gm/dL (11.4-16.0); Lymphocytes # (A) 2.8 k/uL (1.0-4.8); Lymphocytes % (A) 27 %; MCH 33.3 pg (25.0-35.0); MCHC 34.4 g/dL (31.0-37.0); MCV 96.9 fL (80.0-100.0); Mean Platelet Volume 7.9; Monocytes # (A) 0.5 k/uL (0-1.0); Monocytes % (A) 5 %; Neutrophils # (A) 6.9 k/uL (1.3-7.7); Neutrophils % (A) 65 %; Platelet Count 211 k/uL (150-450); RBC 4.26 m/uL (3.80-5.40); RDW 12.5 % (11.5-15.5); WBC 10.5 k/uL (3.8-10.6)
--- NOTE | 2024-07-03 16:32 | ED ---
Chest Pain HPI - General Chief Complaint: Chest Pain Stated Complaint: Chest Pain Time Seen by Provider: 07/03/24 16:15 Source: patient, EMS Mode of arrival: EMS Limitations: no limitations - History of Present Illness Initial Comments: 63-year-old female with past medical history of alcohol abuse, diabetes, hypertension who presents emergency department chest pain. States that she has had some weakness and chest pain for the past 4 days but the chest pain got worse today. She does admit to a history of A-fib. Does not take any anticoag ulation as she had her primary care doctor take her off of it approximately 10 months ago. She denies history of coronary disease. No history of heart cath. States that she is having a pressure over the left side of her chest without radiation. She does admit to feeling short of breath. Denies fevers, chills or cough. No abdominal pain. No changes in her bowel or bladder habits. Given aspirin and 2 nitro by EMS. Reports that it dropped her pain from a 10 to a 5. - Related Data Home Medications Medication Instructions Recorded Confirmed DULoxetine HCL [Cymbalta] 60 mg PO HS 08/07/21 07/03/24 traZODone HCL 200 mg PO HS 05/22/23 07/03/24 HYDROcodone/APAP 7.5-325MG [[place] 1 tab PO BID@11/05/23 07/03/24 7.5-325] Metoprolol Tartrate [Lopressor] 25 mg PO BID 11/17/23 07/03/24 DULoxetine HCL [Cymbalta] 30 mg PO DAILY 07/03/24 07/03/24 diphenhydrAMINE [Benadryl] 25 mg PO HS 07/03/24 07/03/24 Allergies Allergy/AdvReac Type Severity Reaction Status Date / Time azithromycin [From Zithromax] Allergy "had very Verified 07/03/24 16:40 bad thrush" shellfish derived [Shellfish] Allergy Swelling, Verified 07/03/24 16:40 NAUSEA Iodinated Contrast Media AdvReac Anaphylaxis- Verified 07/03/24 16:40 [Iodinated Contrast Media - Lungs IV Dye] filled up with fluid pregabalin [From Lyrica] AdvReac Nausea & Verified 07/03/24 16:40 Vomiting, dizziness Review of Systems ROS Statement: Those systems with pertinent positive or pertinent negative responses have been documented in the HPI. ROS Other: All systems not noted in ROS Statement are negative. Past Medical History Past Medical History: Cancer, Heart Failure, CVA/TIA, Diabetes Mellitus, Hypertension, Myocardial Infarction ([place]), Musculoskeletal Disorder, Neurologic Disorder, Seizure Disorder Additional Past Medical History / Comment(s): Neuropathy of lower extremities and hands, bilateral carpal tunnel, hx CVA in 2002, affected right eye vision, n ow resolved, still has numbness in right hand, hx TIA's and seizures due to alcoholism, none in yrs, hx of a concussion from a fall in 2010, balance issues from Neuropathy, 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 Last Myocardial Infarction Date:: 2014 per EKG History of Any Multi-Drug Resistant Organisms: VRE Date of last positivie culture/infection: 07/01/23 MDRO Source:: Urine-VRE Past Surgical History: Section, Cholecystectomy, Hernia Repair, Orthopedic Surgery, Tonsillectomy Additional Past Surgical History / Comment(s): Ventral hernia repair X4, Section X2, debridements of right foot and abdomen, colonoscopy, laparoscopy, seromas drained X7, ganglion cysts removed, left squamous cell cancer removed, cataracts removed, EGD. Past Anesthesia/Blood Transfusion Reactions: Motion Sickness Additional Past Anesthesia/Blood Transfusion Reaction / Comment(s): takes meclazine now Past Psychological History: Anxiety, Depression Smoking Status: Current every day smoker - Past Family History Mother Family Medical History: Cancer Additional Family Medical History / Comment(s): breast cancer Brother(s) Additional Family Medical History / Comment(s): Patient has 1 brother that from a motor vehicle accident involving alcohol. Patient has no sisters. Patient has 1 son 21 years old and one daughter 23 years old and she has no contact with her children. General Exam Limitations: no limitations General appearance: alert, other (Diaphoretic) Head exam: Present: atraumatic, normocephalic, normal inspection Eye exam: Present: normal appearance, PERRL, EOMI. Absent: scleral icterus, conjunctival injection, periorbital swelling ENT exam: Present: normal exam, mucous membranes moist Neck exam: Present: normal inspection. Absent: tenderness, meningismus, lymphadenopathy Respiratory exam: Present: normal lung sounds bilaterally. Absent: respiratory distress, wheezes, rales, rhonchi, stridor Cardiovascular Exam: Present: regular rate, normal rhythm, normal heart sounds. Absent: systolic murmur, diastolic murmur, rubs, gallop, clicks GI/Abdominal exam: Present: soft, normal bowel sounds. Absent: distended, tenderness, guarding, rebound, rigid Extremities exam: Present: normal inspection, full ROM, normal capillary refill. Absent: tenderness, pedal edema, joint swelling, calf tenderness Back exam: Present: normal inspection Neurological exam: Present: alert, oriented X3, CN II-XII intact Psychiatric exam: Present: normal affect, normal mood Skin exam: Present: warm, dry, intact, normal color. Absent: rash Course Vital Signs 07/03/24 07/03/24 07/03/24 16:12 16:14 16:15 Temperature 98.3 F Pulse Rate 82 Respiratory 18 Rate Blood Pressure 119/102 O2 Sat by Pulse 99 97 100 Oximetry 07/03/24 16:25 Temperature Pulse Rate 84 Respiratory 20 Rate Blood Pressure 189/130 O2 Sat by Pulse 95 Oximetry Chest Pain MDM - MDM Was pt. sent in by a medical professional or institution (, PA, MATERIAL DISTRIBUTOR, urgent care, hospital, or [place] health care facility...) When possible be specific @ -No Did you speak to anyone other than the patient for history (EMS, parent, family, police, friend...)? What history was obtained from this source @ -Spoke with EMS for history Did you review nursing and triage notes (agree or disagree)? Why? @ -I reviewed and agree with nursing and triage notes Were old charts reviewed (outside hosp., previous admission, EMS record, old EKG, old radiological studies, urgent care reports/EKG's, [place] health care facility records)? Report findings @ -I reviewed old EKGs that the patient had done previously in the past. Current EKG is markedly changed Differential Diagnosis (chest pain, altered mental status, abdominal pain women, abdominal pain men, vaginal bleeding, weakness, fever, dyspnea, syncope, headache, dizziness, GI bleed, back pain, seizure, CVA, palpatations, mental health, musculoskeletal)? @ -Differential Chest Pain: Stable Angina, Unstable Angina, STEMI, NSTEMI Aortic Dissection, Pneumothorax, Musculoskeletal, Esophageal Spasm GERD, Cholecystitis, Pancreatitis, Zoster, this is not meant to be an all-inclusive list. EKG interpreted by me (3pts min.). @ - yes, done at 1615 demonstrates significant artifact. Appears to has ST elevation in V2. Sinus rhythm with a rate of 84. QRS 82. QTc of 449 Repeat at 1618 demonstrates sinus rhythm with a rate of 78. QRS 83. QTc of 487. ST segment elevation in V2 V3 X-rays interpreted by me (1pt min.). @ -Yes which demonstrates no acute process CT interpreted by me (1pt min.). @ -None done U/S interpreted by me (1pt. min.). @ -None done What testing was considered but not performed or refused? (CT, X-rays, U/S, labs)? Why? @ -None What meds were considered but not given or refused? Why? @ -None Did you discuss the management of the patient with other professionals (professionals i.e. , PA, MATERIAL DISTRIBUTOR, lab, RT, psych nurse, social insurance administrator, parachute line tier, teacher, us customs and border officer, counter caser)? Give summary @ -Spoke with Dr. Montana who does present to the ED and evaluate the patient. I also spoke with dr tapia for admission Was smoking cessation discussed for >3mins.? @ -No Was critical care preformed (if so, how long)? @ -Yes, 35 minutes Were there social determinants of health that impacted care today? How? (Homelessness, low income, unemployed, alcoholism, drug addiction, transportation, low edu. Level, literacy, decrease access to med. care, fci, rehab)? @ -No Was there de-escalation of care discussed even if they declined (Discuss DNR or withdrawal of care, Hospice)? DNR status @ -No What co-morbidities impacted this encounter? (DM, HTN, Smoking, COPD, CAD, Cancer, CVA, ARF, Chemo, Hep., AIDS, mental health diagnosis, sleep apnea, morbid obesity)? @ -Alcohol abuse Was patient admitted / discharged? Hospital course, mention meds given and r oute, prescriptions, significant lab abnormalities, going to OR and other pertinent info. @ -Admitted upon arrival patient seen and evaluated in trauma 2. Placed on continuous pulse ox and cardiac monitoring. Twelve-lead EKG is obtained which demonstrates STEMI. Code was activated at this time. Spoke with Dr. Montana who does present to the ED and evaluated the patient. Patient will be admitted to Dr. Milian in the ICU. She immediately goes to the Anger Control Counselor Undiagnosed new problem with uncertain prognosis? @ -No Drug Therapy requiring intensive monitoring for toxicity (Heparin, Nitro, Insuli n, Cardizem)? @ -No Were any procedures done? @ -No Diagnosis/symptom? @ -Acute chest pain, acute STEMI Acute, or Chronic, or Acute on Chronic? @ -Acute Uncomplicated (without systemic symptoms) or Complicated (systemic symptoms)? @ -Complicated Side effects of treatment? @ -No Exacerbation, Progression, or Severe Exacerbation? @ -No Poses a threat to life or bodily function? How? (Chest pain, [place], [place], pneumonia, PE, COPD, DKA, ARF, appy, cholecystitis, CVA, Diverticulitis, Homicidal, Suicidal, threat to staff... and all critical care pts) @ -Yes as patient has a STEMI on EKG Disposition Clinical Impression: ST elevation myocardial infarction (STEMI), Chest pain Disposition: ADMITTED IP TO THIS HOSP Condition: Serious Is patient prescribed a controlled substance at d/c from ED?: No Time of Disposition: 16:33 Decision to Admit Reason: Admit from EC Decision Date: 07/03/24 Decision Time: 16:33
[2024-07-03] MEDS ORDERED: Magnesium Replacement Protocol 1 EACH MISC MISCELLANE PRN (16:33)
[2024-07-03] MEDS ORDERED: Potassium Replacement Protocol 1 EACH MISC MISCELLANE PRN (16:33)
[2024-07-03] MEDS ORDERED: NALOXONE 0.4 MG/ML 1 ML VIAL IV PRN (16:33)
[2024-07-03 16:40] LABS: Partial Thromboplastin Time 22.8 sec (22.0-30.0); Prothrombin Time 11.4 sec (10.0-12.5)
[2024-07-03 16:44] LABS: ALT 30 U/L (4-34); AST 90 U/L (14-36); African American GFR (CKD) 84 (>60 ml/min/1.73 sqM); Albumin 4.6 g/dL (3.5-5.0); Alcohol <10 mg/dL; Alkaline Phosphatase 68 U/L (38-126); Anion Gap 8 mmol/L; Blood Urea Nitrogen 8 mg/dL (7-17); Calcium 9.5 mg/dL (8.4-10.2); Carbon Dioxide 24 mmol/L (22-30); Chloride 102 mmol/L (98-107); Glucose 164 mg/dL (74-99); Lipase 74 U/L (23-300); Magnesium 1.5 mg/dL (1.6-2.3); Non-African American GFR(CKD) 73 (>60 ml/min/1.73 sqM); Potassium 4.2 mmol/L (3.5-5.1); Sodium 134 mmol/L (137-145); Total Protein 7.2 g/dL (6.3-8.2)
[2024-07-03 16:51] LABS: NT-Pro-B-Type Natriuretic Pept 3310 pg/mL
[2024-07-03] MEDS ORDERED: LORazepam 2 MG/ML INJ IV PRN (16:51)
--- NOTE | 2024-07-03 16:55 | XR ---
EXAMINATION TYPE: XR chest 1V portable DATE OF EXAM: 07/03/2024 4:48 PM COMPARISON: Chest radiographs from 05/28/2023 CLINICAL INDICATION: Female, 63 years old with history of chest pain; TECHNIQUE: XR chest 1V portable Frontal view of the chest. FINDINGS: Lungs/Pleura: There is no evidence of pleural effusion, focal consolidation, or pneumothorax. Pulmonary vascularity: Unremarkable. Heart/mediastinum: Cardiomediastinal silhouette is unremarkable. Musculoskeletal: No acute osseous pathology. IMPRESSION: No acute cardiopulmonary disease/process. [facility], , 07/03/2024 4:52 PM
--- NOTE | 2024-07-03 17:01 | P.CRDCN ---
History of Present Illness Consult date: 07/03/24 History of present illness: HISTORY OF PRESENTING ILLNESS [ ] 63-year-old female with past medical history of hypertension, obesity, tobacco user, marijuana user and ex alcohol abuser. She presented to the hospital because of acute onset substernal chest pressure-like symptoms along with symptoms of diaphoresis. The symptoms started on like 30 minutes to an hour prior coming to the hospital. EMS EKG showed ST elevations in anteroseptal leads with deep T wave inversions in anteroseptal with lateral extensions. Patient received sublingual nitroglycerin and repeat ECG showed ST elevations in anteroseptal leads with diffuse T wave inversions in anteroseptal leads. Lateral lead extension got better with nitroglycerin. Bedside echocardiogram shows preserved LVEF with mild mid to distal anterolateral wall hypokinesia. BP 119 over 90 mmHg, heart rate 84, Hb 14, creatinine 0.8, NT-proBNP 3300 REVIEW OF SYSTEMS 14 point review of system is negative except what is mentioned above in HPI. PHYSICAL EXAMINATION Vital signs reviewed. Head: Normocephalic. Eyes: Sclerae nonicteric. Neck: Brisk carotid upstroke, no jugular venous distention. Lungs: Clear to auscultation. Heart: Regular rate and rhythm, S1-S2, no S3, no murmur or rub. Abdomen: Soft nontender, positive bowel sounds. Extremities: No edema, intact distal pulses. Neuro: Alert, oritented, no focal deficits. Detailed neuro exam was not performed. ASSESSMENT Anterior STEMI, EKG showing [address] elevations in anteroseptal leads with deep T wave inversions. Acute onset substernal chest pressure Essential hypertension Dyslipidemia Morbid obesity Tobacco user Marijuana user Previous alcohol abuse. Currently occasional alcohol use. PLAN Plan for emergent cardiac authorization Further recommendations to follow Obtain echocardiogram, Obtain lipid panel, HbA1c levels, TSH Gavin Montana MD, FACC, RPVI Thank you for allowing [facility] to participate in this patient's care. Feel free to reach out in case of any followup questions. Past Medical History Past Medical History: Cancer, Heart Failure, CVA/TIA, Diabetes Mellitus, Hypertension, Myocardial Infarction ([place]), Musculoskeletal Disorder, Neurologic Disorder, Seizure Disorder Additional Past Medical History / Comment(s): Neuropathy of lower extremities and hands, bilateral carpal tunnel, hx CVA in 2002, affected right eye vision, now resolved, still has numbness in right hand, hx TIA's and seizures due to alcoholism, none in yrs, hx of a concussion from a fall in 2010, balance issues from Neuropathy, 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 Last Myocardial Infarction Date:: 2014 per EKG History of Any Multi-Drug Resistant Organisms: VRE Date of last positivie culture/infection: 07/01/23 MDRO Source:: Urine-VRE Past Surgical History: Section, Cholecystectomy, Hernia Repair, Orthopedic Surgery, Tonsillectomy Additional Past Surgical History / Comment(s): Ventral hernia repair X4, Section X2, debridements of right foot and abdomen, colonoscopy, laparoscopy, seromas drained X7, ganglion cysts removed, left squamous cell cancer removed, cataracts removed, EGD. Past Anesthesia/Blood Transfusion Reactions: Motion Sickness Additional Past Anesthesia/Blood Transfusion Reaction / Comment(s): takes meclazine now Past Psychological History: Anxiety, Depression Smoking Status: Current every day smoker - Past Family History Mother Family Medical History: Cancer Additional Family Medical History / Comment(s): breast cancer Brother(s) Additional Family Medical History / Comment(s): Patient has 1 brother that from a motor vehicle accident involving alcohol. Patient has no sisters. Patient has 1 son 21 years old and one daughter 23 years old and she has no contact with her children. Medications and Allergies Home Medications Medication Instructions Recorded Confirmed Type DULoxetine HCL [Cymbalta] 60 mg PO HS 08/07/21 07/03/24 History traZODone HCL 200 mg PO HS 05/22/23 07/03/24 History HYDROcodone/APAP 7.5-325MG [[place] 1 tab PO BID@,11/05/23 07/03/24 History 7.5-325] Metoprolol Tartrate [Lopressor] 25 mg PO BID 11/17/23 07/03/24 History DULoxetine HCL [Cymbalta] 30 mg PO DAILY 07/03/24 07/03/24 History diphenhydrAMINE [Benadryl] 25 mg PO HS 07/03/24 07/03/24 History Allergies Allergy/AdvReac Type Severity Reaction Status Date / Time azithromycin [From Zithromax] Allergy "had very Verified 07/03/24 16:40 bad thrush" shellfish derived [Shellfish] Allergy Swelling, Verified 07/03/24 16:40 NAUSEA Iodinated Contrast Media AdvReac Anaphylaxis- Verified 07/03/24 16:40 [Iodinated Contrast Media - Lungs IV Dye] filled up with fluid pregabalin [From Lyrica] AdvReac Nausea & Verified 07/03/24 16:40 Vomiting, dizziness Physical Exam Vitals: Vital Signs Temp Pulse Resp BP Pulse Ox 07/03/24 16:25 84 20 189/130 95 07/03/24 16:12 98.3 F 82 18 119/102 99 Intake and Output 07/03/24 07/03/24 07/03/24 06:59 14:59 22:59 Other: Weight 83.915 kg Results 07/03/24 16:26 07/03/24 16:26 Cardiac Enzymes 07/03/24 Range/Units 16:26 AST 90 H (14-36) U/L Coagulation 07/03/24 Range/Units 16:26 PT 11.4 (10.0-12.5) sec APTT 22.8 (22.0-30.0) sec CBC 07/03/24 Range/Units 16:26 WBC 10.5 (3.8-10.6) k/uL RBC 4.26 (3.80-5.40) m/uL Hgb 14.2 (11.4-16.0) gm/dL Hct 41.2 (34.0-46.0) % Plt Count 211 (150-450) k/uL Comprehensive Metabolic Panel 07/03/24 Range/Units 16:26 Sodium 134 L (137-145) mmol/L Potassium 4.2 (3.5-5.1) mmol/L Chloride 102 (98-107) mmol/L Carbon Dioxide 24 (22-30) mmol/L BUN 8 (7-17) mg/dL Creatinine 0.86 (0.52-1.04) mg/dL Glucose 164 H (74-99) mg/dL Calcium 9.5 (8.4-10.2) mg/dL AST 90 H (14-36) U/L ALT 30 (4-34) U/L Alkaline Phosphatase 68 (38-126) U/L Total Protein 7.2 (6.3-8.2) g/dL Albumin 4.6 (3.5-5.0) g/dL Current Medications Generic Name Dose Route Start Last Admin Trade Name Freq PRN Reason Stop Dose Admin Sodium Chloride 1,000 mls @ 999 mls/hr 07/03/24 16:21 07/03/24 16:25 Saline 0.9% IV 07/03/24 17:21 999 mls/hr .Q1H1M STA Administration Lorazepam 1 mg 07/03/24 16:51 Lorazepam 2 Mg/Ml Inj IV Q1HR PRN CIWA 10 to 15 Lorazepam 1 mg 07/03/24 16:51 Lorazepam 2 Mg/Ml Inj IV Q2HR PRN CIWA 8 or 9 Lorazepam 2 mg 07/03/24 16:51 Lorazepam 2 Mg/Ml Inj IV 07/05/24 16:51 Q10M PRN CIWA 16 or higher Miscellaneous Information 1 each 07/03/24 16:33 Potassium Replacement Protocol 1 Each Misc MISCELLANE DAILY PRN Per Protocol Miscellaneous Information 1 each 07/03/24 16:33 Magnesium Replacement Protocol 1 Each Misc MISCELLANE DAILY PRN Per Protocol Protocol Naloxone HCl 0.2 mg 07/03/24 16:33 Naloxone 0.4 Mg/Ml 1 Ml Vial IV Q2M PRN Opioid Reversal Intake and Output 07/03/24 07/03/24 07/03/24 06:59 14:59 22:59 Other: Weight 83.915 kg Patient Weight 07/04/24 06:59 Weight 83.915 kg 07/03/24 16:26 07/03/24 16:26
[2024-07-03] MEDS: IV FLUID CONTINUATION 1,000 ML IV ONE (17:05)
[2024-07-03] MEDS: HEPARIN SODIUM,PORCINE (1 ML) 2,500 UNIT in SODIUM CHLORIDE 0.9% 250 ML IRRIGATION ONE (17:10)
[2024-07-03] MEDS: diphenhydrAMINE 50 MG/ML 1 ML VIAL IVP ONE (17:10)
[2024-07-03] MEDS: HEPARIN SODIUM,PORCINE 10,000 UNIT in SODIUM CHLORIDE 0.9% 1,000 ML IRRIGATION ONE (17:10)
[2024-07-03] MEDS: LIDOCAINE 1% INJ 10MG/ML (20 ML MDV) SQ ONE (17:10)
[2024-07-03] MEDS: methylPREDNISolone SOD SUCCI 125 MG/2 ML VIAL IVP ONE (17:10)
[2024-07-03] MEDS: VERAPAMIL SYRINGE (5 MG/10 ML) INTRAARTER ONE (17:11)
[2024-07-03] MEDS: fentaNYL (PF) 50 MCG/1 ML VIAL IVP ONE (17:12)
[2024-07-03] MEDS: MIDAZOLAM 2 MG/2 ML VIAL IVP ONE (17:12)
[2024-07-03] MEDS: TICAGRELOR 90 MG TAB PO ONE (17:22)
[2024-07-03] MEDS: HEPARIN SODIUM 1,000 UN/ML (10ML VL) IVP ONE (17:25)
--- NOTE | 2024-07-03 17:29 | P.CARDCATH ---
Date of Procedure: 07/03/24 Description of Procedure: DIAGNOSTIC CORONARY ANGIOGRAPHY and LEFT HEART CATH REPORT PROCEDURES PERFORMED: Left heart catheterization Selective coronary angiography Moderate conscious sedation 13 mins Right radial access INDICATION: Patient presented to the hospital with acute substernal chest pain with diaphoresis. EKG showed ST elevations in anteroseptal leads with deep T wave inversions. For this she was taken emergently to cardiac Core Worker. Patient is allergic to the IV contrast dye. For this she was given a prep with 125 mg of Solu-Medrol, 50 mg of Benadryl, 50 mg of Pepcid. 4000 units of IV heparin was administered in the ER and 325 mg of aspirin in the EMS. CONSENT: I have explained the procedural steps of above-mentioned procedures in layman's terms to the patient. I discussed the risks (including but not limited to stroke, emergent vascular or cardiac surgery or ), benefits and alternative therapies for the above-mentioned procedure. I discussed the risks of sedation/analgesia and blood product administration (if indicated). The patient has indicated understanding and acceptance of these risks. Conscious Sedation: Patient's ECG, heart rate, blood pressure, pulse oximetry were monitored throughout the duration of procedure under my direct supervision. 1 mg Versed and 50 mcg Fentanyl were used for induction of moderate conscious sedation. Total duration of moderate concious sedation 13 minutes. PROCEDURE: After explaining the risks, benefits and alternatives of the above mentioned procedures in detail to the patient, informed consent was obtained. Patient was taken to the catheterization lab, prepped and draped in usual sterile fashion using universal precuations. Ultrasound was used to identify the radial artery. 1% lidocaine was infiltrated over the right radial artery. A 6-Upper Sorbian sheath was placed and secured in the right radial artery using modified Seldinger technique. The sheath was flushed and 5 mg verapamil was administered intra-arterially. J tipped wire was advanced under fluoroscopic guidance. Over the wire JR4 diagnostic catheter was advanced. The wire in place the catheter was manipulated to cross the aortic valve and entered into LV under fluoroscopy guidance. The wire was removed and the catheter was flushed. LV p ressures were obtained and pullback was performed under fluoroscopy. Catheter was manipulated to selectively engage the right coronary ostium. Right coronary angiography was performed in different angiographic projections. The JR4 diagnostic catheter was exchanged for a JL 3.5 diagnostic catheter over the J-wire. The wire was removed, catheter was flushed and manipulated under fluoroscopy to selectively engaged the left coronary ostium. Left coronary angioplasty was performed in different angiographic projections. Catheter was removed over the wire. Radial sheath was flushed. The right radial sheath was removed and a TR band was placed with excellent patent hemostasis was achieved. The patient tolerated the procedure well. Patient was transported back to the post catheterization holding area in stable condition. Angiographic images were reviewed in detail. Catheters used: JR4, JL 3.5, 5 Upper Sorbian. Challenges: J-wire was going from brachial artery were to a sidebranch repeatedly. The wire was successfully directed to subclavian artery with the help of the JR4 diagnostic catheter. HEMODYNAMICS: Aortic Pressure: 170/81 mmHg. LV pressure: 170/10, mmHg. LVEDP 25 mmHg. There was no significant gradient across the aortic valve. SELECTIVE CORONARY ARTERIOGRAPHY: LEFT MAIN: The left main is short and large caliber vessel. It bifurcates into the LAD and circumflex. Left main appears angiographically normal. LEFT ANTERIOR DESCENDING CORONARY ARTERY: LAD is a large caliber vessel which wraps around to the apex. Proximal LAD has thrombotic occlusion, with EVERARDO I flow. There is delayed and incomplete filling of mid and distal LAD. Mid LAD gives rise to a medium size diagonal branch which appears angiographically patent. LEFT CIRCUMFLEX CORONARY ARTERY: It is nondominant vessel. Left circumflex is a moderate caliber vessel. It appears angiographically normal. RIGHT CORONARY ARTERY: Dominant vessel. Right coronary artery is moderate caliber. Midportion of the right coronary artery has 85 to 90% disease. IMPRESSION: 99% proximal LAD thrombotic occlusion, EVERARDO I flow. LAD is the culprit. 90% mid RCA stenosis. Elevated LVEDP PLAN: Plan for PCI of LAD. Once stabilized, plan for staged PCI of RCA prior to discharge. Further recommendations to follow Performing Physician Gavin Montana MD, FACC, RPVI Thank you for allowing [facility] to participate in this patient's care. Feel free to reach out in case of any followup questions.
[2024-07-03] MEDS: NITROGLYCERIN 1000MCG/10ML SYRINGE INTRACORON ONE (17:50)
[2024-07-03] MEDS: IOPAMIDOL-370 100ML BTL INJ ONE (17:53)
[2024-07-03] MEDS ORDERED: ATROPINE SULFATE 0.1 MG/ML 10ML SYRINGE IV PRN (17:55)
[2024-07-03] MEDS ORDERED: NITROGLYCERIN SL TABS 0.4 MG TAB SUBLINGUAL PRN (17:55)
[2024-07-03] MEDS ORDERED: RX INFO: IV CONTRAST WAS GIVEN 1 EACH MISC MISCELLANE PRN (17:55)
[2024-07-03] MEDS ORDERED: ZOLPIDEM 5 MG TAB PO PRN (17:55)
[2024-07-03] MEDS ORDERED: MAG HYDROX/AL HYDROX/SIMETH 30 ML CUP PO PRN (17:55)
--- NOTE | 2024-07-03 18:00 | P.PCN ---
Date of Procedure: 07/03/24 Operative Findings: PERCUTANEOUS CORONARY INTERVENTION Performing physician Alvarado Lawson M.D. Procedure Performed: 1. Successful stenting of the proximal LAD using 3.5 x 38 mm Xience drug- eluting stent with an excellent angiographic results. 2. Adjunctive use of IVUS Indication: This is a 63-year-old female patient was admitted to the hospital with chest discomfort and EKG finding consistent with acute anterior ST ovation myocardial infarction which she underwent a heart catheterization by Dr. Montana and was found to have occluded LAD with plaque rupture and thrombus formation involving the LAD. The LAD was completely occluded. Approach: Right radial art Complications: None Level of Sedation: Moderate with a sedation length of 35 minutes Procedure Discussion: After diagnostic heart catheterization was performed earlier by Dr. Montana the patient was found to have occluded LAD in the proximal portion of long segment with plaque rupture and thrombus formation. Anticoagulation was initiated using heparin with continuous ACT monitoring. Subsequently I did load the patient with ticagrelor at 180 mg. Subsequently I did engage the left main using JL 3 5 guiding catheter with I did wired the LAD using a whisper wire. Intravascular ultrasound was performed and showed a diameter around 3.5 at the distal lesion and about 4 mm at the proximal portion. Predilatation was performed using 3 mm balloon before I deployed 3.5 x 38 mm stent with adjunctive use of guide liner and the stent was positioned under fluoroscopy guidance and deployed under fluoroscopy guidance. Subsequently postdilated proximally using 4 mm NC balloon. Final angiogram showed excellent angiographic results and the procedure was completed with no complication Postprocedure Management: 1. Dual antiplatelet therapy using aspirin and Brilinta for at least 12 months 2. PCI of the RCA to be done in the next 48 hours 3. Follow-up with the patient
[2024-07-03 18:19] LABS: Glucose,Whole Blood 171 mg/dL (70-110)
[2024-07-03] MEDS ORDERED: DEXTROSE 50% SYRINGE 50 ML IVP PRN ×2 (18:34)
[2024-07-03 18:38] LABS: Magnesium 1.5 mg/dL (1.6-2.3)
[2024-07-03] MEDS: SODIUM CHLORIDE 0.9% 1,000 ML in EMPTY BAG 1 BAG IV SCH (18:46)
[2024-07-03] MEDS: HYDROcodone/APAP 7.5-325MG 1 EACH TAB PO SCH (18:47)
[2024-07-03 20:00] LABS: Glucose,Whole Blood 179 mg/dL (70-110)
[2024-07-03] MEDS: DULoxetine HCL 60 MG CAPSULE.DR PO SCH (20:03)
[2024-07-03] MEDS: METOPROLOL TARTRATE 25 MG TAB PO SCH (20:03)
[2024-07-03] MEDS: ATORVASTATIN 80 MG TAB PO SCH (20:03)
[2024-07-03] MEDS: diphenhydrAMINE 25 MG CAP PO SCH (20:03)
[2024-07-03] MEDS: TICAGRELOR 90 MG TAB PO SCH (20:04)
[2024-07-03] MEDS: INSULIN ASPART (NovoLOG) 100 UNIT/ML VIAL SQ SCH (20:04)
[2024-07-03] MEDS: LORazepam 2 MG/ML INJ IV PRN (21:38)
[2024-07-03] MEDS: traZODone HCL 100 MG TAB PO SCH (21:38)
[2024-07-03 22:50] LABS: Chol/HDL Ratio 3.32 Ratio; LDL Cholesterol,Calculated 104.9 mg/dL (0.0-131.0)
[2024-07-04 05:41] LABS: Glucose,Whole Blood 246 mg/dL (70-110)
[2024-07-04 06:02] LABS: Basophils % (A) 0 %; Eosinophils % (A) 1 %; HCT 38.8 % (34.0-46.0); HGB 13.4 gm/dL (11.4-16.0); Lymphocytes % (A) 15 %; MCH 33.3 pg (25.0-35.0); MCHC 34.4 g/dL (31.0-37.0); MCV 96.7 fL (80.0-100.0); Mean Platelet Volume 8.1; Monocytes # (A) 0.2 k/uL (0-1.0); Monocytes % (A) 3 %; Neutrophils # (A) 5.1 k/uL (1.3-7.7); Neutrophils % (A) 81 %; Platelet Count 201 k/uL (150-450); RBC 4.02 m/uL (3.80-5.40); RDW 13.2 % (11.5-15.5); WBC 6.3 k/uL (3.8-10.6)
[2024-07-04 06:34] LABS: African American GFR (CKD) >90 (>60 ml/min/1.73 sqM); Anion Gap 6 mmol/L; Blood Urea Nitrogen 11 mg/dL (7-17); Calcium 9.6 mg/dL (8.4-10.2); Carbon Dioxide 27 mmol/L (22-30); Chloride 102 mmol/L (98-107); Glucose 208 mg/dL (74-99); Non-African American GFR(CKD) 82 (>60 ml/min/1.73 sqM); Potassium 4.3 mmol/L (3.5-5.1); Sodium 135 mmol/L (137-145)
--- NOTE | 2024-07-04 06:42 | P.HPIM ---
History of Present Illness This is a pleasant 63 years old female with past medical history of multiple medical problems as below. She follow-up with Dr. Ellis as an outpatient her PCP and follow-up with Dr. Vidal to office and his [facility] for her peripheral neurop athy. Presents because of chest pain found to have anterior STEMI she underwent cardiac cath showing 99% stenosis of LAD and 90% stenosis of the RCA. She is status post PCI to LAD. Currently she is lying comfortable in the ICU in room 264, denies any chest pain or dyspnea. She denies any other complaint as below. She states she was recently followed to have right kidney mass by her PCP Dr. Ellis and she was scheduled to do CAT scan as an outpatient and she was asking if she can do the CAT scan while in the hospital. She complains from mild tenderness on the right flank. She denies dysuria urgency or change in the frequency of urination, no other new urinary complaints Patient states she smokes without specification and she was counseled to quit and she agrees. She declines nicotine patch. No alcohol or illicit drugs. She is hemodynamically stable She has unremarkable CBC, BMP, LFTs. Troponin is elevated at 5.6. Alcohol level is 41. Review of Systems Review of systems CONSTITUTIONAL: No fever, no malaise, no fatigue. HEENT: No recent visual problems or hearing problems. Denied any sore throat. CARDIOVASCULAR: No orthopnea, PND, no palpitations, no syncope. PULMONARY: No shortness of breath, no cough, no hemoptysis. GASTROINTESTINAL: No diarrhea, no nausea, no vomiting, no abdominal pain. Normoactive bowel sounds. NEUROLOGICAL: No headaches, no weakness, no numbness. HEMATOLOGICAL: Denies any bleeding or petechiae. GENITOURINARY: Denies any burning micturition, frequency, or urgency. MUSCULOSKELETAL/RHEUMATOLOGICAL: Denies any joint pain, swelling, or any muscle pain. ENDOCRINE: Denies any polyuria or polydipsia. 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 Last Myocardial Infarction Date:: 2014 per EKG History of Any Multi-Drug Resistant Organisms: MRSA, VRE Date of last positivie culture/infection: 07/01/23 MDRO Source:: Urine-VRE, Right small toe-MRSA Past Surgical History: Section, Cholecystectomy, Hernia Repair, Orthopedic Surgery, Tonsillectomy Additional Past Surgical History / Comment(s): Ventral hernia repair X4, Section X2, debridements of right foot and abdomen, colonoscopy, laparoscopy, seromas drained X7, ganglion cysts removed, left squamous cell cancer removed, cataracts removed, EGD. Past Anesthesia/Blood Transfusion Reactions: Motion Sickness Additional Past Anesthesia/Blood Transfusion Reaction / Comment(s): takes meclazine now Past Psychological History: Anxiety, Depression Additional Psychological History / Comment(s): . Smoking Status: Current every day smoker Past Alcohol Use History: Occasional Additional Past Alcohol Use History / Comment(s): Smokes 15 cigarettes a day, started smoking in 2003. Past Drug Use History: Marijuana Additional Drug Use History / Comment(s): No current Marijuana use. - Past Family History Mother Family Medical History: Cancer Additional Family Medical History / Comment(s): breast cancer Brother(s) Additional Family Medical History / Comment(s): Patient has 1 brother that from a motor vehicle accident involving alcohol. Patient has no sisters. Patient has 1 son 21 years old and one daughter 23 years old and she has no contact with her children. Medications and Allergies Home Medications Medication Instructions Recorded Confirmed Type DULoxetine HCL [Cymbalta] 60 mg PO HS 08/07/21 07/03/24 History traZODone HCL 200 mg PO HS 05/22/23 07/03/24 History HYDROcodone/APAP 7.5-325MG [[place] 1 tab PO BID@,11/05/23 07/03/24 History 7.5-325] Metoprolol Tartrate [Lopressor] 25 mg PO BID 11/17/23 07/03/24 History DULoxetine HCL [Cymbalta] 30 mg PO DAILY 07/03/24 07/03/24 History diphenhydrAMINE [Benadryl] 25 mg PO HS 07/03/24 07/03/24 History Allergies Allergy/AdvReac Type Severity Reaction Status Date / Time azithromycin [From Zithromax] Allergy "had very Verified 07/03/24 16:40 bad thrush" shellfish derived [Shellfish] Allergy Swelling, Verified 07/03/24 16:40 NAUSEA Iodinated Contrast Media AdvReac Anaphylaxis- Verified 07/03/24 16:40 [Iodinated Contrast Media - Lungs IV Dye] filled up with fluid pregabalin [From Lyrica] AdvReac Nausea & Verified 07/03/24 16:40 Vomiting, dizziness Physical Exam Vitals: Vital Signs Temp Pulse Resp BP Pulse Ox 07/04/24 05:00 61 15 158/87 97 07/04/24 04:45 61 12 149/79 98 07/04/24 04:30 65 12 147/87 98 07/04/24 04:15 65 12 162/100 98 07/04/24 04:00 97.6 F 66 24 165/86 98 07/04/24 03:45 66 20 117/106 97 07/04/24 03:30 64 21 166/92 96 07/04/24 03:15 67 24 152/94 96 07/04/24 03:00 70 19 166/90 97 07/04/24 02:45 67 12 141/72 97 07/04/24 02:30 60 19 130/76 97 07/04/24 02:15 61 14 123/74 97 07/04/24 02:00 64 23 146/91 96 07/04/24 01:45 67 21 155/87 97 07/04/24 01:30 70 20 174/91 97 07/04/24 01:15 70 19 140/79 96 07/04/24 01:00 64 20 144/84 97 07/04/24 00:45 62 14 155/82 97 07/04/24 00:30 72 24 153/91 97 07/04/24 00:15 63 20 155/84 96 07/04/24 00:00 97.7 F 64 19 159/92 95 07/03/24 23:45 72 14 138/70 96 07/03/24 23:30 64 20 135/82 97 07/03/24 23:15 67 24 145/88 98 07/03/24 23:09 67 17 145/88 96 07/03/24 23:00 70 16 131/92 96 07/03/24 22:45 70 12 174/94 97 07/03/24 22:30 73 18 187/115 97 07/03/24 22:15 80 9 L 187/115 97 07/03/24 22:00 89 5 L 158/124 97 07/03/24 21:45 76 24 187/133 98 07/03/24 21:30 78 15 185/106 98 07/03/24 21:15 76 19 170/121 96 07/03/24 21:00 75 13 135/87 97 07/03/24 20:45 79 17 177/116 97 07/03/24 20:30 81 15 171/93 97 07/03/24 20:15 79 14 147/95 97 07/03/24 20:00 97.6 F 77 26 H 182/108 97 07/03/24 19:45 80 22 172/122 96 07/03/24 19:30 84 20 190/125 96 07/03/24 19:15 87 19 196/105 97 07/03/24 19:00 80 11 L 176/129 94 L 07/03/24 18:45 77 18 172/105 94 L 07/03/24 18:30 76 29 H 172/105 100 07/03/24 18:24 97.5 F L 75 28 H 188/128 95 07/03/24 16:49 78 18 184/110 97 07/03/24 16:25 84 20 189/130 95 07/03/24 16:15 100 07/03/24 16:14 97 07/03/24 16:12 98.3 F 82 18 119/102 99 Intake and Output 07/03/24 07/03/24 07/04/24 14:59 22:59 06:59 Intake Total 760 150 Output Total 650 700 Balance 110 -550 Intake: IV 460 Intake, IV Titration 300 150 Amount Sodium Chloride 0.9% 1, 300 150 000 ml In Empty Bag 1 bag @ 75 mls/hr IV .[id number] [facility] Rx#:[id number] Output: Urine 650 700 Other: Voiding Method External Catheter External Catheter Weight 83.915 kg 92 kg GENERAL: The patient is alert and oriented x3, not in any acute distress. Well developed, well nourished. HEENT: Pupils are round and equally reacting to light. EOMI. No scleral icterus. No conjunctival pallor. Normocephalic, atraumatic. No pharyngeal erythema. No thyromegaly. CARDIOVASCULAR: S1 and S2 present. No murmurs, rubs, or gallops. PULMONARY: Chest is clear to auscultation, no wheezing , no crackles. ABDOMEN: Soft, nontender, nondistended, normoactive bowel sounds. No palpable organomegaly. MUSCULOSKELETAL: No joint swelling or deformity. EXTREMITIES: No cyanosis, clubbing, or pedal edema. NEUROLOGICAL: Gross neurological examination did not reveal any focal deficits. SKIN: No rashes. no petechiae. Results CBC & Chem 7: 07/04/24 05:41 07/04/24 05:41 Labs: Abnormal Lab Results - Last 24 Hours (Table) 07/03/24 07/03/24 07/03/24 Range/Units 16:26 16:26 16:26 Sodium 134 L (137-145) mmol/L Glucose 164 H (74-99) mg/dL POC Glucose (mg/dL) (70-110) mg/dL Magnesium 1.5 L 1.5 L (1.6-2.3) mg/dL AST 90 H (14-36) U/L Troponin I 5.660 H* (0.000-0.034) ng/mL Triglycerides 153.00 H (0.00-149.00) mg/dL 07/03/24 07/03/24 07/04/24 Range/Units 18:17 19:59 05:40 Sodium (137-145) mmol/L Glucose (74-99) mg/dL POC Glucose (mg/dL) 171 H 179 H 246 H (70-110) mg/dL Magnesium (1.6-2.3) mg/dL AST (14-36) U/L Troponin I (0.000-0.034) ng/mL Triglycerides (0.00-149.00) mg/dL Thrombosis Risk Factor Assmnt - Choose All That Apply Any of the Below Risk Factors Present?: Yes Each Factor Represents 1 point: Acute SC, Obesity (BMI >25) Other Risk Factors: Yes Each Risk Factor Represents 2 Points: Age 61-74 years Thrombosis Risk Factor Assessment Total Risk Factor Score: 4 Thrombosis Risk Factor Assessment Level: Moderate Risk Assessment and Plan Assessment: Acute anterior STEMI status post PCI to LAD, cardiology team are planning to do another stent placement to RCA chronic neuropathy and balance problem due to neuropathy Hypertension Hyperlipidemia Obesity Nicotine dependence History of alcohol use disorder Patient reports her history of kidney lesion that she is scheduled CAT scan as an outpatient with her PCP Dr. Ellis Plan: Continue with dual antiplatelet therapy with aspirin and Brilinta Cardiology team are planning to do another cardiac cath and stent placement to RCA Continue with metoprolol and high-dose Lipitor Labs and medication were reviewed.. Continue same treatment. Continue with symptomatic treatment. Resume home medication. Monitor labs and vitals. DVT and GI prophylaxis. Further recommendations as per clinical course of the patient DVT prophylaxis: Subcutaneous heparin GI Prophylaxis: Pepcid PT/OT: Pending Prognosis is guarded
[2024-07-04] MEDS: ASPIRIN 81 MG PO SCH (08:49)
[2024-07-04] MEDS: FAMOTIDINE 20 MG/2 ML VIAL IV SCH (08:49)
[2024-07-04] MEDS: HEPARIN SODIUM,PORCINE 5,000 UNIT/ML 1 ML VIAL SQ SCH (08:49)
[2024-07-04] MEDS: DULoxetine HCL 30 MG CAPSULE.DR PO SCH (08:49)
[2024-07-04] MEDS ORDERED: HYDROcodone/APAP 7.5-325MG 1 EACH TAB PO SCH (11:00)
[2024-07-04] MEDS: LOSARTAN 50 MG TAB PO SCH (11:04)
[2024-07-04 11:20] LABS: Glucose,Whole Blood 233 mg/dL (70-110)
--- NOTE | 2024-07-04 13:11 | P.CRDCN ---
History of Present Illness Consult date: 07/04/24 History of present illness: HISTORY OF PRESENTING ILLNESS 63-year-old female with past medical history of hypertension, obesity, tobacco user, marijuana user and ex alcohol abuser. She presented to the hospital because of acute onset substernal chest pressure-like symptoms along with symptoms of diaphoresis. The symptoms started on like 30 minutes to an hour prior coming to the hospital. EMS EKG showed ST elevations in anteroseptal leads with deep T wave inversions in anteroseptal with lateral extensions. Patient received sublingual nitroglycerin and repeat ECG showed ST elevations in anteroseptal leads with diffuse T wave inversions in anteroseptal leads. Lateral lead extension got better with nitroglycerin. Bedside echocardiogram shows preserved LVEF with mild mid to distal anterolateral wall hypokinesia. BP 119 over 90 mmHg, heart rate 84, Hb 14, creatinine 0.8, NT-proBNP 3300 Progress note 07/04/2024 Patient is seen and examined bedside this a.m. BP 165 over 97 mmHg, heart rate 70 beats minute, right radial access site appears intact with no signs of hematoma or bleeding. Appropriate radial pulse appreciated. No reported chest pain shortness of breath. PHYSICAL EXAMINATION Head: Normocephalic. Eyes: Sclerae nonicteric. Neck: Brisk carotid upstroke, no jugular venous distention. Lungs: Clear to auscultation. Heart: Regular rate and rhythm, S1-S2, no S3, no murmur or rub. Abdomen: Soft nontender, positive bowel sounds. Extremities: No edema, intact distal pulses. Neuro: Alert, oritented, no focal deficits. Detailed neuro exam was not performed. ASSESSMENT Anterior STEMI, EKG showing [address] elevations in anteroseptal leads with deep T wave inversions. Heart cath showed 100% mid LAD stenosis, 90% mid RCA stenosis, status post PCI to LAD Essential hypertension Dyslipidemia Morbid obesity Tobacco user Marijuana user Previous alcohol abuse. Currently occasional alcohol use. Labs Hb 13.4, BUN 11, creatinine 0.7 HbA1c 5.1, NT-proBNP 3300, LDL 104, TG 153, TSH 1.5 PLAN Continue aspirin, Brilinta, Lipitor Add losartan 50 mg daily. Continue metoprolol to tartrate 25 mg twice daily. Monitor blood pressure, telemetry. Okay to be transferred out of ICU Await echocardiogram results Plan for staged PCI of RCA tomorrow Past Medical History Past Medical History: Cancer, Heart Failure, CVA/TIA, Diabetes Mellitus, Hypertension, Myocardial Infarction ([place]), Musculoskeletal Disorder, Neurologic Disorder, Seizure Disorder Additional Past Medical History / Comment(s): Neuropathy of lower extremities and hands, bilateral carpal tunnel, hx CVA in 2002, affected right eye vision, now resolved, still has numbness in right hand, hx TIA's and seizures due to a lcoholism, none in yrs, hx of a concussion from a fall in 2010, balance issues from Neuropathy, 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 Last Myocardial Infarction Date:: 2014 per EKG History of Any Multi-Drug Resistant Organisms: VRE Date of last positivie culture/infection: 07/01/23 MDRO Source:: Urine-VRE Past Surgical History: Section, Cholecystectomy, Hernia Repair, Orthopedic Surgery, Tonsillectomy Additional Past Surgical History / Comment(s): Ventral hernia repair X4, Section X2, debridements of right foot and abdomen, colonoscopy, laparoscopy, seromas drained X7, ganglion cysts removed, left squamous cell cancer removed, cataracts removed, EGD. Past Anesthesia/Blood Transfusion Reactions: Motion Sickness Additional Past Anesthesia/Blood Transfusion Reaction / Comment(s): takes meclazine now Past Psychological History: Anxiety, Depression Smoking Status: Current every day smoker - Past Family History Mother Family Medical History: Cancer Additional Family Medical History / Comment(s): breast cancer Brother(s) Additional Family Medical History / Comment(s): Patient has 1 brother that from a motor vehicle accident involving alcohol. Patient has no sisters. Patient has 1 son 21 years old and one daughter 23 years old and she has no contact with her children. Medications and Allergies Home Medications Medication Instructions Recorded Confirmed Type DULoxetine HCL [Cymbalta] 60 mg PO HS 08/07/21 07/03/24 History traZODone HCL 200 mg PO HS 05/22/23 07/03/24 History HYDROcodone/APAP 7.5-325MG [[place] 1 tab PO BID@11/05/23 07/03/24 History 7.5-325] Metoprolol Tartrate [Lopressor] 25 mg PO BID 05/07/24 12/22/24 History DULoxetine HCL [Cymbalta] 30 mg PO DAILY 07/03/24 07/03/24 History diphenhydrAMINE [Benadryl] 25 mg PO HS 07/03/24 07/03/24 History Allergies Allergy/AdvReac Type Severity Reaction Status Date / Time azithromycin [From Zithromax] Allergy "had very Verified 07/03/24 16:40 bad thrush" shellfish derived [Shellfish] Allergy Swelling, Verified 07/03/24 16:40 NAUSEA Iodinated Contrast Media AdvReac Anaphylaxis- Verified 07/03/24 16:40 [Iodinated Contrast Media - Lungs IV Dye] filled up with fluid pregabalin [From Lyrica] AdvReac Nausea & Verified 07/03/24 16:40 Vomiting, dizziness Physical Exam Vitals: Vital Signs Temp Pulse Pulse Resp BP BP Pulse Ox 07/04/24 12:00 90 18 165/97 96 07/04/24 10:00 78 23 163/85 98 07/04/24 09:00 73 23 179/86 97 07/04/24 08:00 97.8 F 76 20 161/87 98 07/04/24 07:00 85 17 161/92 97 07/04/24 06:45 67 21 152/122 98 07/04/24 06:30 71 12 167/151 97 07/04/24 06:15 68 21 160/93 96 07/04/24 06:00 65 19 162/95 97 07/04/24 05:45 64 22 147/121 96 07/04/24 05:30 63 20 158/81 96 07/04/24 05:15 62 20 139/78 98 07/04/24 05:00 61 15 158/87 97 07/04/24 04:45 61 12 149/79 98 07/04/24 04:30 65 12 147/87 98 07/04/24 04:15 65 12 162/100 98 07/04/24 04:00 97.6 F 66 24 165/86 98 07/04/24 03:45 66 20 117/106 97 07/04/24 03:30 64 21 166/92 96 07/04/24 03:15 67 24 152/94 96 07/04/24 03:00 70 19 166/90 97 07/04/24 02:45 67 12 141/72 97 07/04/24 02:30 60 19 130/76 97 07/04/24 02:15 61 14 123/74 97 07/04/24 02:00 64 23 146/91 96 07/04/24 01:45 67 21 155/87 97 07/04/24 01:30 70 20 174/91 97 07/04/24 01:15 70 19 140/79 96 07/04/24 01:00 64 20 144/84 97 07/04/24 00:45 62 14 155/82 97 07/04/24 00:30 72 24 153/91 97 07/04/24 00:15 63 20 155/84 96 07/04/24 00:00 97.7 F 64 19 159/92 95 07/03/24 23:45 72 14 138/70 96 07/03/24 23:30 64 20 135/82 97 07/03/24 23:15 67 24 145/88 98 07/03/24 23:09 67 17 145/88 96 07/03/24 23:00 70 16 131/92 96 07/03/24 22:45 70 12 174/94 97 07/03/24 22:30 73 18 187/115 97 07/03/24 22:15 80 9 L 187/115 97 07/03/24 22:00 89 5 L 158/124 97 07/03/24 21:45 76 24 187/133 98 07/03/24 21:30 78 15 185/106 98 07/03/24 21:15 76 19 170/121 96 07/03/24 21:00 75 13 135/87 97 07/03/24 20:45 79 17 177/116 97 07/03/24 20:30 81 15 171/93 97 07/03/24 20:15 79 14 147/95 97 07/03/24 20:00 97.6 F 77 26 H 182/108 97 07/03/24 19:45 80 22 172/122 96 07/03/24 19:30 84 20 190/125 96 07/03/24 19:15 87 19 196/105 97 07/03/24 19:00 80 11 L 176/129 94 L 07/03/24 18:45 77 18 172/105 94 L 07/03/24 18:30 76 29 H 172/105 100 12/22/24 18:24 97.5 F L 75 28 H 188/128 95 07/03/24 16:49 78 18 184/110 97 07/03/24 16:25 84 20 189/130 95 07/03/24 16:15 100 07/03/24 16:14 97 07/03/24 16:12 98.3 F 82 18 119/102 99 Intake and Output 07/03/24 07/04/24 07/04/24 22:59 06:59 14:59 Intake Total 760 150 120 Output Total 650 700 350 Balance 110 -550 -230 Intake: IV 460 Intake, IV Titration 300 150 Amount Sodium Chloride 0.9% 1, 300 150 000 ml In Empty Bag 1 bag @ 75 mls/hr IV .[id number] [facility] Rx#:[id number] Oral 120 Output: Urine 650 700 350 Other: Voiding Method External Catheter External Catheter External Catheter Weight 83.915 kg 92 kg 92 kg Results 07/04/24 05:41 07/04/24 05:41 Cardiac Enzymes 07/03/24 07/03/24 Range/Units 16:26 16:26 AST 90 H (14-36) U/L Troponin I 5.660 H* (0.000-0.034) ng/mL Coagulation 07/03/24 Range/Units 16:26 PT 11.4 (10.0-12.5) sec APTT 22.8 (22.0-30.0) sec Lipids 07/03/24 Range/Units 16:26 Triglycerides 153.00 H (0.00-149.00) mg/dL Cholesterol 194.00 (0.00-200.00) mg/dL HDL Cholesterol 58.50 (40.00-60.00) mg/dL Cholesterol/HDL Ratio 3.32 Ratio CBC 07/03/24 07/04/24 Range/Units 16:26 05:41 WBC 10.5 6.3 (3.8-10.6) k/uL RBC 4.26 4.02 (3.80-5.40) m/uL Hgb 14.2 13.4 (11.4-16.0) gm/dL Hct 41.2 38.8 (34.0-46.0) % Plt Count 211 201 (150-450) k/uL Comprehensive Metabolic Panel 07/03/24 07/04/24 Range/Units 16:26 05:41 Sodium 134 L 135 L (137-145) mmol/L Potassium 4.2 4.3 (3.5-5.1) mmol/L Chloride 102 102 (98-107) mmol/L Carbon Dioxide 24 27 (22-30) mmol/L BUN 8 11 (7-17) mg/dL Creatinine 0.86 0.78 (0.52-1.04) mg/dL Glucose 164 H 208 H (74-99) mg/dL Calcium 9.5 9.6 (8.4-10.2) mg/dL AST 90 H (14-36) U/L ALT 30 (4-34) U/L Alkaline Phosphatase 68 (38-126) U/L Total Protein 7.2 (6.3-8.2) g/dL Albumin 4.6 (3.5-5.0) g/dL Current Medications Generic Name Dose Route Start Last Admin Trade Name Freq PRN Reason Stop Dose Admin Hydrocodone Bitart/Acetaminophen 1 each 07/03/24 18:45 07/04/24 11:03 Hydrocodone/Apap 7.5-325mg 1 Each Tab PO 1 each BID@11,18 RAUL Administration Al Hydroxide/Mg Hydroxide 30 ml 07/03/24 17:55 Mag Hydrox/Al Hydrox/Simeth 30 Ml Cup PO Q4HR PRN Heartburn Aspirin 81 mg 07/04/24 09:00 07/04/24 08:49 Aspirin 81 Mg PO 81 mg DAILY RAUL Administration Atorvastatin Calcium 80 mg 07/03/24 21:00 07/03/24 20:03 Atorvastatin 80 Mg Tab PO 80 mg HS RAUL Administration Atropine Sulfate 0.5 mg 07/03/24 17:55 Atropine Sulfate 0.1 Mg/Ml 10ml Syringe IV ONCE PRN Symptomatic Bradycardia Dextrose/Water 25 ml 07/03/24 18:34 Dextrose 50% Syringe 50 Ml IVP PER PROTOCOL PRN Hypoglycemia Protocol Dextrose/Water 50 ml 07/03/24 18:34 Dextrose 50% Syringe 50 Ml IVP PER PROTOCOL PRN Hypoglycemia Protocol Diphenhydramine HCl 25 mg 07/03/24 21:00 07/03/24 20:03 Diphenhydramine 25 Mg Cap PO 25 mg HS RAUL Administration Duloxetine HCl 30 mg 07/04/24 09:00 07/04/24 08:49 Duloxetine Hcl 30 Mg Capsule. PO 30 mg DAILY RAUL Administration Duloxetine HCl 60 mg 07/03/24 21:00 07/03/24 20:03 Duloxetine Hcl 60 Mg Capsule. PO 60 mg HS RAUL Administration Famotidine 20 mg 07/04/24 09:00 07/04/24 08:49 Famotidine 20 Mg/2 Ml Vial IV 20 mg Q12HR RAUL Administration Heparin Sodium (Porcine) 5,000 unit 07/04/24 09:00 07/04/24 08:49 Heparin Sodium,Porcine 5,000 Unit/Ml 1 Ml Vial SQ 5,000 unit Q12HR RAUL Administration Heparin Sodium (Porcine) 10, 1,001 mls @ 999 mls/hr 07/05/24 07:00 000 unit/ Sodium Chloride IRRIGATION 07/05/24 23:00 ONCE PRN INTRA-OP Heparin Sodium (Porcine) 2,500 250.5 mls @ 250 mls/hr 07/05/24 07:00 unit/ Sodium Chloride IRRIGATION 07/05/24 23:00 ONCE PRN INTRA-OP Sodium Chloride 1,000 mls @ 75 mls/hr 07/05/24 01:30 Saline 0.9% IV .[id number] RAUL Insulin Aspart 0 unit 07/03/24 21:00 07/04/24 12:17 Insulin Aspart (Novolog) 100 Unit/Ml Vial SQ 4 unit ACHS RAUL Administration Protocol Lorazepam 1 mg 07/03/24 16:51 Lorazepam 2 Mg/Ml Inj IV Q1HR PRN CIWA 10 to 15 Lorazepam 1 mg 07/03/24 16:51 Lorazepam 2 Mg/Ml Inj IV Q2HR PRN CIWA 8 or 9 Lorazepam 2 mg 07/03/24 16:51 07/03/24 21:38 Lorazepam 2 Mg/Ml Inj IV 07/05/24 16:51 2 mg Q10M PRN Administration CIWA 16 or higher Losartan Potassium 50 mg 07/04/24 11:00 07/04/24 11:04 Losartan 50 Mg Tab PO 50 mg DAILY RAUL Administration Metoprolol Tartrate 25 mg 07/03/24 21:00 07/04/24 08:49 Metoprolol Tartrate 25 Mg Tab PO 25 mg BID RAUL Administration Miscellaneous Information 1 each 07/03/24 16:33 Potassium Replacement Protocol 1 Each Misc MISCELLANE DAILY PRN Per Protocol Miscellaneous Information 1 each 07/03/24 16:33 Magnesium Replacement Protocol 1 Each [facility] [place] PRN Per Protocol Protocol Miscellaneous Information 1 each 07/03/24 17:55 Rx Info: Iv Contrast Was Given 1 Each [facility] [place] 07/05/24 17:55 DAILY PRN Per Protocol Naloxone HCl 0.2 mg 07/03/24 16:33 Naloxone 0.4 Mg/Ml 1 Ml Vial IV Q2M PRN Opioid Reversal Nitroglycerin 0.4 mg 07/03/24 17:55 Nitroglycerin Sl Tabs 0.4 Mg Tab SUBLINGUAL Q5M PRN Chest Pain Ticagrelor 90 mg 07/03/24 21:00 07/04/24 08:49 Ticagrelor 90 Mg Tab PO 90 mg BID RAUL Administration Protocol Trazodone HCl 200 mg 07/03/24 21:00 07/03/24 21:38 Trazodone Hcl 100 Mg Tab PO 200 mg HS RAUL Administration Zolpidem Tartrate 5 mg 07/03/24 17:55 Zolpidem 5 Mg Tab PO HS PRN Insomnia Intake and Output 07/03/24 07/04/24 07/04/24 22:59 06:59 14:59 Intake Total 760 150 120 Output Total 650 700 350 Balance 110 -550 -230 Intake: IV 460 Intake, IV Titration 300 150 Amount Sodium Chloride 0.9% 1, 300 150 000 ml In Empty Bag 1 bag @ 75 mls/hr IV .[id number] [facility] Rx#:[id number] Oral 120 Output: Urine 650 700 350 Other: Voiding Method External Catheter External Catheter External Catheter Weight 83.915 kg 92 kg 92 kg Patient Weight 07/05/24 06:59 Weight 92 kg 07/04/24 05:41 07/04/24 05:41
[2024-07-04 16:52] LABS: Glucose,Whole Blood 189 mg/dL (70-110)
--- NOTE | 2024-07-04 17:13 | CA ---
Transthoracic Echo Report Name: Anupama Howell Age: 63 Gender: F : 1960 Exam Date: 07/04/2024 08:34 Exam Location: [place] [facility] Ht (in): 66 Wt (lb): 185 Ordering Physician: Alvarado Lawson MD ([id number]) Attending/Referring Phys: Track Inspector Reyna Snow RDCS Procedure CPT: Indications: ACS Cardiac Hx: Technical Quality: Technically difficult study Contrast 1: Total Dose (mL): Contrast 2: Total Dose (mL): MEASUREMENTS (Male / Female) Normal Values 2D ECHO LV Diastolic Diameter PLAX 4.7 cm 4.2 - 5.9 / 3.9 - 5.3 cm LV Systolic Diameter PLAX 4.1 cm IVS Diastolic Thickness 1.4 cm 0.6 - 1.0 / 0.6 - 0.9 cm LVPW Diastolic Thickness 1.5 cm 0.6 - 1.0 / 0.6 - 0.9 cm LV Relative Wall Thickness 0.6 RV Internal Dim ED PLAX 3.4 cm LA Systolic Diameter LX 3.8 cm 3.0 - 4.0 / 2.7 - 3.8 cm LV Diastolic Volume MOD BP 42.8 cm??? 67 - 155 / 56 - 104 cm??? LV Systolic Volume MOD BP 23.2 cm??? 22 - 58 / 19 - 49 cm??? LV Ejection Fraction MOD BP 45.9 % >= 55 % LV Cardiac Index MOD BP 776.1 cm???/min???m??? LV Diastolic Volume MOD 4C 47.4 cm??? LV Systolic Volume MOD 4C 23.0 cm??? LV Ejection Fraction MOD 4C 51.4 % LV Cardiac Index MOD 4C 961.1 cm???/min???m??? LV Diastolic Length 4C 6.4 cm LV Systolic Length 4C 6.7 cm LV Diastolic Volume MOD 2C 39.3 cm??? LV Systolic Volume MOD 2C 22.1 cm??? LV Ejection Fraction MOD 2C 43.9 % LV Cardiac Index MOD 2C 682.4 cm???/min???m??? LV Diastolic Length 2C 6.6 cm LV Systolic Length 2C 5.6 cm LA Volume 71.9 cm??? 18 - 58 / 22 - 52 cm??? LA Volume Index 35.9 cm???/m??? 16 - 28 cm???/m??? M-MODE Aortic Root Diameter MM 3.5 cm DOPPLER AV Peak Velocity 154.0 cm/s AV Peak Gradient 9.5 mmHg MV Area PHT 3.4 cm??? Mitral E Point Velocity 97.6 cm/s Mitral A Point Velocity 111.1 cm/s Mitral E to A Ratio 0.9 MV Deceleration Time 220.5 ms FINDINGS Left Ventricle Left ventricular ejection fraction is estimated at 45-50 %. Left ventricular cavity size normal. Moderately increased septal wall thickness. Moderately increased posterior wall thickness. Mildly decreased left ventricular ejection fraction. M id septum hypokinesis. Apical septum hypokinesis Right Ventricle Mild right ventricular dilatation. Unable to estimate the right ventricular systolic pressure. Right Atrium Mild right atrial dilatation. No right atrial thrombus or mass seen. Left Atrium Moderately increased left atrial volume. Mitral Valve Structurally normal mitral valve. Trace mitral regurgitation. Aortic Valve Trileaflet aortic valve. No aortic valve stenosis or regurgitation. Tricuspid Valve Structurally normal tricuspid valve. No tricuspid stenosis, regurgitation or prolapse. Pulmonic Valve Pulmonic valve not well visualized. Pericardium No pericardial effusion. Aorta Normal size aortic root and proximal ascending aorta. CONCLUSIONS Diagnosis Acute myocardial infarction Reduced LV systolic function with large apical akinesis Increased LV mass Previewed by: Dr. Julius Allred MD (Electronically Signed) Final Date: 04 July 2024 17:12
[2024-07-04] MEDS: diphenhydrAMINE 50 MG/ML 1 ML VIAL IVP STA (18:56)
[2024-07-04 20:17] LABS: Glucose,Whole Blood 187 mg/dL (70-110)
[2024-07-04] MEDS: SODIUM CHLORIDE 0.9% 1,000 ML in EMPTY BAG 1 BAG IV SCH (21:36)
[2024-07-04] MEDS: SODIUM CHLORIDE 0.9% 1,000 ML IV SCH (23:22)
[2024-07-05] MEDS ORDERED: SODIUM CHLORIDE 0.9% 1,000 ML IV SCH (03:00)
[2024-07-05 06:21] LABS: Glucose,Whole Blood 156 mg/dL (70-110)
[2024-07-05] MEDS: IV FLUID CONTINUATION 600 ML IV ONE (07:27)
[2024-07-05] MEDS: methylPREDNISolone SOD SUCCI 125 MG/2 ML VIAL IV ONE ×2 (07:35→08:34)
[2024-07-05] MEDS: diphenhydrAMINE 50 MG/ML 1 ML VIAL IVP ONE ×2 (07:35→08:33)
[2024-07-05] MEDS: MIDAZOLAM 2 MG/2 ML VIAL IVP ONE ×2 (07:42→07:55)
[2024-07-05] MEDS: LIDOCAINE 1% INJ 10MG/ML (20 ML MDV) SQ ONE ×2 (07:43→07:44)
[2024-07-05] MEDS: VERAPAMIL SYRINGE (5 MG/10 ML) INTRAARTER ONE (07:45)
[2024-07-05] MEDS: HEPARIN SODIUM,PORCINE (1 ML) 2,500 UNIT in SODIUM CHLORIDE 0.9% 250 ML IRRIGATION PRN (07:49)
[2024-07-05] MEDS: HEPARIN SODIUM,PORCINE 10,000 UNIT in SODIUM CHLORIDE 0.9% 1,000 ML IRRIGATION PRN (07:49)
[2024-07-05] MEDS: IOPAMIDOL-370 100ML BTL INJ ONE (08:09)
[2024-07-05] MEDS ORDERED: RX INFO: IV CONTRAST WAS GIVEN 1 EACH MISC MISCELLANE PRN (08:10)
[2024-07-05] MEDS ORDERED: MAG HYDROX/AL HYDROX/SIMETH 30 ML CUP PO PRN (08:10)
[2024-07-05] MEDS ORDERED: ZOLPIDEM 5 MG TAB PO PRN (08:10)
[2024-07-05] MEDS ORDERED: ATROPINE SULFATE 0.1 MG/ML 10ML SYRINGE IV PRN (08:10)
[2024-07-05] MEDS ORDERED: NITROGLYCERIN SL TABS 0.4 MG TAB SUBLINGUAL PRN (08:10)
--- NOTE | 2024-07-05 08:14 | P.PCN ---
Date of Procedure: 07/05/24 Operative Findings: PERCUTANEOUS CORONARY INTERVENTION Performing physician Alvarado Lawson M.D. Procedure Performed: 1. Successful stenting of the mid RCA using 3.25 x 28 Xience drug-eluting stent with an excellent angiographic results. 2. Adjunctive use of IVUS and also left heart catheterization 3. Ultrasound-guided access of the right radial artery Indication: The patient is a 63-year-old female patient was admitted to the hospital few days ago with acute anterior ST ovation myocardial infarction and underwent a heart catheterization and PCI of the LAD and was found to have severe disease involving the RCA and she was brought today to undergo PCI of the RCA Approach: Right radial artery Complications: None Level of Sedation: Moderate with a sedation length of 24 minutes Procedure Discussion: After obtaining informed consent the patient was brought to the cardiac Movie Theater Manager. The right radial artery was cannulated using micropuncture technique under ultrasound guidance a micropuncture wire passed easily then I placed a 6 Yi 11 cm sheath at the right radial artery and subsequently the patient was given 5000's of heparin IV and 2 mg of verapamil intra-arterial. She was already on antiplatelet using ticagrelor as well as aspirin. Subsequently I did engage the RCA using JR4 guiding catheter. Before I engaged the RCA the catheter was crossed the aortic valve then I did pullback across the valve with LVEDP of about 20 mmHg. Subsequently I did engage the RCA and the RCA was wired using a run-through wire. Intravascular ultrasound was performed and showed a diameter around 3.25 to 3.5 mm. I did predilated using 2.5 mm balloon before I deployed a 3.25 x 28 mm Xience ISATU where the stent was positioned under fluoroscopy guidance and deployed under fluoroscopy guidance. Postdilatation was performed using 3.5 mm NC balloon and subsequently IVUS was performed and showed that the stent was well opposed and well-expanded. The procedure was completed with no complication Postprocedure Management: 1. Dual antiplatelet therapy using aspirin and Brilinta for at least 12-month 2. Aggressive cholesterol control 3. Risk factors modification
[2024-07-05] MEDS: SODIUM CHLORIDE 0.9% 1,000 ML in EMPTY BAG 1 BAG IV SCH (08:34)
[2024-07-05] MEDS: LORazepam 2 MG/ML INJ IV PRN (10:24)
[2024-07-05 11:51] LABS: Glucose,Whole Blood 269 mg/dL (70-110)
[2024-07-05 11:55] LABS: African American GFR (CKD) 74 (>60 ml/min/1.73 sqM); Anion Gap 7 mmol/L; Blood Urea Nitrogen 16 mg/dL (7-17); Calcium 9.4 mg/dL (8.4-10.2); Carbon Dioxide 26 mmol/L (22-30); Chloride 104 mmol/L (98-107); Glucose 205 mg/dL (74-99); Non-African American GFR(CKD) 64 (>60 ml/min/1.73 sqM); Sodium 137 mmol/L (137-145)
[2024-07-05] MEDS: DAPAGLIFLOZIN PROPANEDIOL 10 MG TABLET PO SCH (13:29)
[2024-07-05] MEDS: SPIRONOLACTONE 25 MG TAB PO SCH (13:29)
[2024-07-05] MEDS: SACUBITRIL/VALSARTAN 24 MG-26 MG TABLET PO ONE (13:29)
[2024-07-05 16:38] LABS: Glucose,Whole Blood 248 mg/dL (70-110)
--- NOTE | 2024-07-05 17:10 | P.PN ---
Subjective This is a pleasant 63 years old female with past medical history of multiple medical problems as below. She follow-up with Dr. Ellis as an outpatient her PCP and follow-up with Dr. Vidal to office and his SPEECH THERAPIST EARLY INTERVENTION for her peripheral neuropathy. Presents because of chest pain found to have anterior STEMI she underwent cardiac cath showing 99% stenosis of LAD and 90% stenosis of the RCA. She is status post PCI to LAD. Currently she is lying comfortable in the ICU in room 264, denies any chest pain or dyspnea. She denies any other complaint as below. She states she was recently followed to have right kidney mass by her PCP Dr. Ellis and she was scheduled to do CAT scan as an outpatient and she was asking if she can do the CAT scan while in the hospital. She complains from mild tenderness on the right flank. She denies dysuria urgency or change in the frequency of urination, no other new urinary complaints Patient states she smokes without specification and she was counseled to quit and she agrees. She declines nicotine patch. No alcohol or illicit drugs. She is hemodynamically stable She has unremarkable CBC, BMP, LFTs. Troponin is elevated at 5.6. Alcohol level is 41. 07/05 Patient is a status post PCI to proximal LAD on 07/03 Also patient underwent another PCI to RCA today on 07/05 Patient was feeling anxious but no chest pain. Ativan is provided for her No other new complaint Continue with dual antiplatelet therapy with aspirin and Brilinta and other cardiac medication like metoprolol, Lipitor and losartan Monitor blood pressure Possible discharge in 24 to 48 hours if she keeps stable and improving Objective - Vital Signs Vital signs: Vital Signs Temp 97.4 F L 07/05/24 04:15 Pulse 73 07/05/24 12:15 Resp 18 07/05/24 12:15 BP 153/87 07/05/24 12:15 Pulse Ox 97 07/05/24 12:15 FiO2 Intake & Output 07/04/24 07/05/24 07/05/24 18:59 06:59 18:59 Intake Total 238 20 300 Output Total 350 150 Balance -112 -130 300 Weight 92 kg 64 kg Intake: IV 20 300 Invasive Line 1 10 Invasive Line 2 10 Oral 238 Output: Urine 350 150 Other: Voiding Method External Catheter External Catheter External Catheter - Exam GENERAL: The patient is alert and oriented x3, not in any acute distress. Well developed, well nourished. HEENT: Pupils are round and equally reacting to light. EOMI. No scleral icterus. No conjunctival pallor. Normocephalic, atraumatic. No pharyngeal erythema. No thyromegaly. CARDIOVASCULAR: S1 and S2 present. No murmurs, rubs, or gallops. PULMONARY: Chest is clear to auscultation, no wheezing , no crackles. ABDOMEN: Soft, nontender, nondistended, normoactive bowel sounds. No palpable organomegaly. MUSCULOSKELETAL: No joint swelling or deformity. EXTREMITIES: No cyanosis, clubbing, or pedal edema. NEUROLOGICAL: Gross neurological examination did not reveal any focal deficits. SKIN: No rashes. no petechiae. - Labs CBC & Chem 7: 07/04/24 05:41 07/05/24 11:15 Labs: Abnormal Lab Results - Last 24 Hours (Table) 07/04/24 07/04/24 07/05/24 Range/Units 16:51 20:15 06:19 Glucose (74-99) mg/dL POC Glucose (mg/dL) 189 H 187 H 156 H (70-110) mg/dL 07/05/24 07/05/24 Range/Units 11:15 11:49 Glucose 205 H (74-99) mg/dL POC Glucose (mg/dL) 269 H (70-110) mg/dL Assessment and Plan Assessment: Acute anterior STEMI status post PCI to LAD on 07/03, s/p stent placement to RCA on 07/05 chronic neuropathy and balance problem due to neuropathy Hypertension Hyperlipidemia Obesity Nicotine dependence History of alcohol use disorder Patient reports her history of kidney lesion that she is scheduled CAT scan as an outpatient with her PCP Dr. Ellis Plan: Continue with dual antiplatelet therapy with aspirin and Brilinta Cardiology team are planning to do another cardiac cath and stent placement to RCA Continue with metoprolol and high-dose Lipitor Labs and medication were reviewed.. Continue same treatment. Continue with symptomatic treatment. Resume home medication. Monitor labs and vitals. DVT and GI prophylaxis. Further recommendations as per clinical course of the patient DVT prophylaxis: Subcutaneous heparin GI Prophylaxis: Pepcid PT/OT: Pending Prognosis is guarded
[2024-07-05 19:47] LABS: Glucose,Whole Blood 218 mg/dL (70-110)
[2024-07-06 06:18] LABS: Glucose,Whole Blood 142 mg/dL (70-110)
[2024-07-06 08:15] LABS: African American GFR (CKD) 70 (>60 ml/min/1.73 sqM); Non-African American GFR(CKD) 61 (>60 ml/min/1.73 sqM)
[2024-07-06] MEDS: SACUBITRIL/VALSARTAN 49 MG-51 MG TABLET PO SCH (08:33)
--- NOTE | 2024-07-06 09:48 | P.PN ---
Subjective This is a pleasant 63 years old female with past medical history of multiple medical problems as below. She follow-up with Dr. Ellis as an outpatient her PCP and follow-up with Dr. Vidal to office and his SENIOR IT ENGINEER for her peripheral neuropathy. Presents because of chest pain found to have anterior STEMI she underwent cardiac cath showing 99% stenosis of LAD and 90% stenosis of the RCA. She is status post PCI to LAD. Currently she is lying comfortable in the ICU in room 264, denies any chest pain or dyspnea. She denies any other complaint as below. She states she was recently followed to have right kidney mass by her PCP Dr. Ellis and she was scheduled to do CAT scan as an outpatient and she was asking if she can do the CAT scan while in the hospital. She complains from mild tenderness on the right flank. She denies dysuria urgency or change in the frequency of urination, no other new urinary complaints Patient states she smokes without specification and she was counseled to quit and she agrees. She declines nicotine patch. No alcohol or illicit drugs. She is hemodynamically stable She has unremarkable CBC, BMP, LFTs. Troponin is elevated at 5.6. Alcohol level is 41. 07/05 Patient is a status post PCI to proximal LAD on 07/03 Also patient underwent another PCI to RCA today on 07/05 Patient was feeling anxious but no chest pain. Ativan is provided for her No other new complaint Continue with dual antiplatelet therapy with aspirin and Brilinta and other cardiac medication like metoprolol, Lipitor and losartan Monitor blood pressure Possible discharge in 24 to 48 hours if she keeps stable and improving 07/06 Patient no chest pain or dyspnea She has follow-up this morning She is complaining from right side flank pain which has been going on for about 2 months as per patient. She rated a 7/10. Renal ultrasound from 05/23/2023 showing left renal cortex cyst 1.6-2.2 cm. Will going to repeat renal ultrasound. If no improvement consider urologist evaluation Objective - Vital Signs Vital signs: Vital Signs Temp 97.7 F 07/06/24 04:00 Pulse 71 07/06/24 04:00 Resp 18 07/06/24 04:00 BP 142/79 07/06/24 04:00 Pulse Ox 98 07/06/24 04:00 FiO2 Intake & Output 07/05/24 07/06/24 07/06/24 18:59 06:59 18:59 Intake Total 418 Balance 418 Weight 89.7 kg Intake: IV 300 Oral 118 Other: Voiding Method External Catheter Bedside Commode # Voids 1 - Exam GENERAL: The patient is alert and oriented x3, not in any acute distress. Well developed, well nourished. HEENT: Pupils are round and equally reacting to light. EOMI. No scleral icterus. No conjunctival pallor. Normocephalic, atraumatic. No pharyngeal erythema. No thyromegaly. CARDIOVASCULAR: S1 and S2 present. No murmurs, rubs, or gallops. PULMONARY: Chest is clear to auscultation, no wheezing , no crackles. ABDOMEN: Soft, nontender, nondistended, normoactive bowel sounds. No palpable organomegaly. MUSCULOSKELETAL: No joint swelling or deformity. EXTREMITIES: No cyanosis, clubbing, or pedal edema. NEUROLOGICAL: Gross neurological examination did not reveal any focal deficits. SKIN: No rashes. no petechiae. - Labs CBC & Chem 7: 07/04/24 05:41 07/06/24 06:47 Labs: Abnormal Lab Results - Last 24 Hours (Table) 07/05/24 07/05/24 07/05/24 Range/Units 11:15 11:49 16:36 Glucose 205 H (74-99) mg/dL POC Glucose (mg/dL) 269 H 248 H (70-110) mg/dL 07/05/24 07/06/24 Range/Units 19:47 06:17 Glucose (74-99) mg/dL POC Glucose (mg/dL) 218 H 142 H (70-110) mg/dL Assessment and Plan Assessment: Acute anterior STEMI status post PCI to LAD on 07/03, s/p stent placement to RCA on 07/05 chronic neuropathy and balance problem due to neuropathy right flank pain with vomiting On 07/06 Hypertension Hyperlipidemia Obesity Nicotine dependence History of alcohol use disorder Patient reports her history of kidney lesion that she is scheduled CAT scan as an outpatient with her PCP Dr. Ellis Plan: Continue with dual antiplatelet therapy with aspirin and Brilinta Cardiology team are planning to do another cardiac cath and stent placement to RCA Continue with metoprolol and high-dose Lipitor Check renal ultrasound Labs and medication were reviewed.. Continue same treatment. Continue with symptomatic treatment. Resume home medication. Monitor labs and vitals. DVT and GI prophylaxis. Further recommendations as per clinical course of the patient DVT prophylaxis: Subcutaneous heparin GI Prophylaxis: Pepcid PT/OT: Pending Prognosis is guarded
[2024-07-06 11:46] LABS: Glucose,Whole Blood 175 mg/dL (70-110)
[2024-07-06] MEDS: amLODIPine 10 MG TAB PO SCH (12:26)
--- NOTE | 2024-07-06 13:22 | US ---
EXAMINATION TYPE: US renals and bladder DATE OF EXAM: 07/06/2024 COMPARISON: US 05/23/23. CT abdomen/pelvis 05/22/2023 CLINICAL INDICATION: Female, 63 years old with history of Flank pain; Flank pain TECHNIQUE: Grayscale imaging of the bilateral kidneys and urinary bladder: FINDINGS: EXAM MEASUREMENTS: Right Kidney: 8.7 x 3.8 x 3.7 cm Left Kidney: 11.8 x 5.2 x 4.5 cm Right Kidney: wnl, no evidence for hydronephrosis, mass or renal calculus. Left Kidney: There is a 1.4 x 0.6 x 1.3cm echogenic focus seen in the superior pole, previously seen. Bladder: Incompletely distended and not fully visualized. Appears wnl as best seen Bilateral Jets seen: Attempted, not visualized today. IMPRESSION: 1. No sonographic evidence for obstructive uropathy. 2. Redemonstrated calcification within a cystic focus in the left kidney parenchyma also seen on CT a nd renal ultrasound in reference. [facility], , 07/06/2024 1:20 PM
[2024-07-06 16:51] LABS: Glucose,Whole Blood 141 mg/dL (70-110)
[2024-07-06] MEDS: TRIMETHOBENZAMIDE 100 MG/ML 2 ML VIAL IM STA (19:08)
--- NOTE | 2024-07-06 20:19 | PN ---
PROGRESS NOTE 63-year-old lady, who is admitted to hospital with ST-segment elevation AL and underwent angioplasty with stent placement of the LAD on the initial presentation and subsequently yesterday had a stent within the right coronary artery. This morning, she is free of chest pain, had an episode of nausea and vomiting. Echocardiogram shows apical septal hypokinesis with an ejection fraction of 45%. PHYSICAL EXAM: VITAL SIGNS: Blood pressure is poorly controlled. Heart rate is 69 beats per minute. NECK: There is no jugular venous distention. CHEST: Reveals good air entry bilaterally. HEART: Reveals first and second heart sounds. No gallop. EXTREMITIES: Did not reveal any edema. MEDICATIONS: She is currently on : 1. Aspirin. 2. Lopressor. 3. Aldactone. 4. Brilinta. 5. Lipitor. ASSESSMENT: 1. Acute myocardial infarction status post catheterization and angioplasty of LAD and right coronary artery. 2. Severe uncontrolled hypertension. PLAN: I will add 10 mg of amlodipine for better blood pressure control. MMODL / IJN: [id number] /
[2024-07-06 20:44] LABS: Glucose,Whole Blood 164 mg/dL (70-110)
[2024-07-07 03:34] LABS: Basophils % (A) 0 %; Eosinophils # (A) 0.1 k/uL (0-0.7); Eosinophils % (A) 1 %; HCT 36.2 % (34.0-46.0); HGB 12.8 gm/dL (11.4-16.0); Lymphocytes # (A) 2.8 k/uL (1.0-4.8); Lymphocytes % (A) 37 %; MCH 34.9 pg (25.0-35.0); MCHC 35.5 g/dL (31.0-37.0); MCV 98.5 fL (80.0-100.0); Mean Platelet Volume 8.3; Monocytes # (A) 0.4 k/uL (0-1.0); Monocytes % (A) 5 %; Neutrophils # (A) 4.2 k/uL (1.3-7.7); Neutrophils % (A) 56 %; Platelet Count 162 k/uL (150-450); RBC 3.67 m/uL (3.80-5.40); RDW 13.3 % (11.5-15.5); WBC 7.6 k/uL (3.8-10.6)
[2024-07-07 03:53] LABS: African American GFR (CKD) 70 (>60 ml/min/1.73 sqM); Anion Gap 7 mmol/L; Blood Urea Nitrogen 16 mg/dL (7-17); Calcium 9.5 mg/dL (8.4-10.2); Carbon Dioxide 20 mmol/L (22-30); Chloride 109 mmol/L (98-107); Glucose 121 mg/dL (74-99); Non-African American GFR(CKD) 61 (>60 ml/min/1.73 sqM); Potassium 3.5 mmol/L (3.5-5.1); Sodium 136 mmol/L (137-145)
[2024-07-07 06:15] LABS: Glucose,Whole Blood 145 mg/dL (70-110)
--- NOTE | 2024-07-07 10:16 | P.PN ---
Subjective Progress Note Date: 07/07/24 HISTORY OF PRESENTING ILLNESS 63-year-old female with past medical history of hypertension, obesity, tobacco user, marijuana user and ex alcohol abuser. She presented to the hospital because of acute onset substernal chest pressure-like symptoms along with symptoms of diaphoresis. The symptoms started on like 30 minutes to an hour prior coming to the hospital. EMS EKG showed ST elevations in anteroseptal leads with deep T wave inversions in anteroseptal with lateral extensions. Patient received sublingual nitroglycerin and repeat ECG showed ST elevations in anteroseptal leads with diffuse T wave inversions in anteroseptal leads. Lateral lead extension got better with nitroglycerin. Bedside echocardiogram shows preserved LVEF with mild mid to distal anterolateral wall hypokinesia. BP 119 over 90 mmHg, heart rate 84, Hb 14, creatinine 0.8, NT-proBNP 3300 Progress note 07/04/2024 Patient is seen and examined bedside this a.m. BP 165 over 97 mmHg, heart rate 70 beats minute, right radial access site appears intact with no signs of hematoma or bleeding. Appropriate radial pulse appreciated. No reported chest pain shortness of breath. PHYSICAL EXAMINATION Head: Normocephalic. Eyes: Sclerae nonicteric. Neck: Brisk carotid upstroke, no jugular venous distention. Lungs: Clear to auscultation. Heart: Regular rate and rhythm, S1-S2, no S3, no murmur or rub. Abdomen: Soft nontender, positive bowel sounds. Extremities: No edema, intact distal pulses. Neuro: Alert, oritented, no focal deficits. Detailed neuro exam was not performed. ASSESSMENT Anterior STEMI, EKG showing [address] elevations in anteroseptal leads with deep T wave inversions. Heart cath showed 100% mid LAD stenosis, 90% mid RCA stenosis, status post PCI to LAD Status post PCI to RCA Essential hypertension, poorly controlled. Dyslipidemia Morbid obesity Tobacco user Marijuana user Previous alcohol abuse. Currently occasional alcohol use. Labs Hb 13.4, BUN 11, creatinine 0.7 HbA1c 5.1, NT-proBNP 3300, LDL 104, TG 153, TSH 1.5 PLAN Continue aspirin, Brilinta, Lipitor Entresto 49/51 mg twice daily, Aldactone 25 mg daily. Added amlodipine 5 mg yesterday. I will change metoprolol to Coreg 6.25 mg twice daily. Patient is okay to be discharged from cardiovascular standpoint. Cardiology team will sign off. Consider outpatient PAD evaluation along with renal Doppler evaluation. I recommend outpatient follow-up with Dr. Montana in next 1 to 2 weeks. Cardiac rehab Objective - Vital Signs Vital signs: Vital Signs Temp 97.7 F 07/07/24 08:00 Pulse 69 07/07/24 08:00 Resp 16 07/07/24 08:00 BP 174/82 07/07/24 08:00 Pulse Ox 100 07/07/24 08:25 FiO2 Intake & Output 07/06/24 07/07/24 07/07/24 18:59 06:59 18:59 Intake Total 1440 Balance 1440 Weight 89.8 kg Intake: Oral 1440 Other: Voiding Method Bedside Commode Bedside Commode # Voids 2 # Bowel Movements 2 2 - Labs CBC & Chem 7: 07/07/24 02:53 07/07/24 02:49 Labs: Abnormal Lab Results - Last 24 Hours (Table) 07/06/24 07/06/24 07/06/24 Range/Units 11:45 16:49 20:43 RBC (3.80-5.40) m/uL Sodium (137-145) mmol/L Chloride (98-107) mmol/L Carbon Dioxide (22-30) mmol/L Glucose (74-99) mg/dL POC Glucose (mg/dL) 175 H 141 H 164 H (70-110) mg/dL 07/07/24 07/07/24 07/07/24 Range/Units 02:49 02:53 06:13 RBC 3.67 L (3.80-5.40) m/uL Sodium 136 L (137-145) mmol/L Chloride 109 H (98-107) mmol/L Carbon Dioxide 20 L (22-30) mmol/L Glucose 121 H (74-99) mg/dL POC Glucose (mg/dL) 145 H (70-110) mg/dL
[2024-07-07] MEDS ORDERED: IOPAMIDOL CONTRAST (ORAL USE) VIAL PO PRN (11:30)
--- NOTE | 2024-07-07 11:35 | P.PN ---
Subjective This is a pleasant 63 years old female with past medical history of multiple medical problems as below. She follow-up with Dr. Ellis as an outpatient her PCP and follow-up with Dr. Vidal to office and his OSTOMY NURSE for her peripheral neuropathy. Presents because of chest pain found to have anterior STEMI she underwent cardiac cath showing 99% stenosis of LAD and 90% stenosis of the RCA. She is status post PCI to LAD. Currently she is lying comfortable in the ICU in room 264, denies any chest pain or dyspnea. She denies any other complaint as below. She states she was recently followed to have right kidney mass by her PCP Dr. Ellis and she was scheduled to do CAT scan as an outpatient and she was asking if she can do the CAT scan while in the hospital. She complains from mild tenderness on the right flank. She denies dysuria urgency or change in the frequency of urination, no other new urinary complaints Patient states she smokes without specification and she was counseled to quit and she agrees. She declines nicotine patch. No alcohol or illicit drugs. She is hemodynamically stable She has unremarkable CBC, BMP, LFTs. Troponin is elevated at 5.6. Alcohol level is 41. 07/05 Patient is a status post PCI to proximal LAD on 07/03 Also patient underwent another PCI to RCA today on 07/05 Patient was feeling anxious but no chest pain. Ativan is provided for her No other new complaint Continue with dual antiplatelet therapy with aspirin and Brilinta and other cardiac medication like metoprolol, Lipitor and losartan Monitor blood pressure Possible discharge in 24 to 48 hours if she keeps stable and improving 07/06 Patient no chest pain or dyspnea She has follow-up this morning She is complaining from right side flank pain which has been going on for about 2 months as per patient. She rated a 7/10. Renal ultrasound from 05/23/2023 showing left renal cortex cyst 1.6-2.2 cm. Will going to repeat renal ultrasound. If no improvement consider urologist evaluation 07/07 Patient with no chest pain or dyspnea She still feels very tired She still has diarrhea and she still has right-sided abdominal pain She has good appetite with no vomiting We will check for C. difficile and I discussed with staff Also patient was asking to do CAT scan with contrast while she is in the hospital. She is telling me she is supposed to get a CAT scan with IV contrast as an outpatient for a kidney lesion but she wants to do it in the hospital because she has allergy to contrast so she can get better preparation. Patient told me she had previously CAT scan with IV contrast with preparation for her stents and did well. Also we did yesterday renal ultrasound showing left side cystic kidney lesion which does not coincide with her clinical symptom because her pain is on the right side however we consulted urologist Because today she has abdominal pain and diarrhea and besides her request for kidney lesion we going to order CT scan of the abdomen and pelvis with IV and oral contrast with preparation. Creatinine is still within the reference range at 0.9 and she still has normal saline running at 75 mL/h. This was discussed in details with the patient with risk including but not limited to nephrotoxicity and kidney shutdown are explained for her and she verbalized understanding and acceptance as well as allergic reaction and/or lung congestion and/or and she verbalized understanding and acceptance Also discussed the case with cardiology team, blood pressure on the high side so switch metoprolol to Coreg 6.125 mg. However patient is cleared for discharge by cardiology team and they are signed off the case Review of systems CONSTITUTIONAL: No fever, no malaise, no fatigue. HEENT: No recent visual problems or hearing problems. Denied any sore throat. CARDIOVASCULAR: No orthopnea, PND, no palpitations, no syncope. GENITOURINARY: Denies any burning micturition, frequency, or urgency. MUSCULOSKELETAL/RHEUMATOLOGICAL: Denies any joint pain, swelling, or any muscle pain. ENDOCRINE: Denies any polyuria or polydipsia. Active Medications Generic Name Dose Route Start Last Admin Trade Name Freq PRN Reason Stop Dose Admin Hydrocodone Bitart/Acetaminophen 1 each 07/03/24 18:45 07/06/24 21:24 Hydrocodone/Apap 7.5-325mg 1 Each Tab PO 1 each BID@ RAUL Administration Al Hydroxide/Mg Hydroxide 30 ml 07/05/24 08:10 Mag Hydrox/Al Hydrox/Simeth 30 Ml Cup PO Q4HR PRN Heartburn Amlodipine Besylate 10 mg 07/06/24 11:30 07/07/24 09:38 Amlodipine 10 Mg Tab PO 10 mg DAILY RAUL Administration Aspirin 81 mg 07/04/24 09:00 07/07/24 09:38 Aspirin 81 Mg PO 81 mg DAILY RAUL Administration Atorvastatin Calcium 80 mg 07/03/24 21:00 07/06/24 21:24 Atorvastatin 80 Mg Tab PO 80 mg HS RAUL Administration Atropine Sulfate 0.5 mg 07/05/24 08:10 Atropine Sulfate 0.1 Mg/Ml 10ml Syringe IV ONCE PRN Symptomatic Bradycardia Carvedilol 6.25 mg 07/07/24 17:30 Carvedilol 6.25 Mg Tab PO BID-W/MEALS RAUL Dapagliflozin 10 mg 07/05/24 13:00 07/07/24 09:38 Dapagliflozin Propanediol 10 Mg Tablet PO 10 mg DAILY RAUL Administration Dextrose/Water 25 ml 07/03/24 18:34 Dextrose 50% Syringe 50 Ml IVP PER PROTOCOL PRN Hypoglycemia Protocol Dextrose/Water 50 ml 07/03/24 18:34 Dextrose 50% Syringe 50 Ml IVP PER PROTOCOL PRN Hypoglycemia Protocol Diphenhydramine HCl 25 mg 07/03/24 21:00 07/06/24 21:24 Diphenhydramine 25 Mg Cap PO 25 mg HS RAUL Administration Duloxetine HCl 30 mg 07/04/24 09:00 07/07/24 09:38 Duloxetine Hcl 30 Mg Capsule. PO 30 mg DAILY RAUL Administration Duloxetine HCl 60 mg 07/03/24 21:00 07/06/24 21:24 Duloxetine Hcl 60 Mg Capsule. PO 60 mg HS RAUL Administration Famotidine 20 mg 07/07/24 21:00 Famotidine 20 Mg Tab PO BID RAUL Heparin Sodium (Porcine) 5,000 unit 07/04/24 09:00 07/07/24 09:38 Heparin Sodium,Porcine 5,000 Unit/Ml 1 Ml Vial SQ 5,000 unit Q12HR RAUL Administration Sodium Chloride 1,000 mls @ 75 mls/hr 07/05/24 01:30 07/07/24 04:00 Saline 0.9% IV 75 mls/hr .[id number] RAUL Administration Insulin Aspart 0 unit 07/03/24 21:00 07/07/24 06:33 Insulin Aspart (Novolog) 100 Unit/Ml Vial SQ Not Given ACHS RAUL Protocol Iopamidol 30 ml 07/07/24 11:30 Iopamidol Contrast (Oral Use) Vial PO 07/08/24 11:[address] Scan Lorazepam 1 mg 07/03/24 16:51 Lorazepam 2 Mg/Ml Inj IV Q1HR PRN CIWA 10 to 15 Lorazepam 1 mg 07/03/24 16:51 07/06/24 21:38 Lorazepam 2 Mg/Ml Inj IV 1 mg Q2HR PRN Administration CIWA 8 or 9 Miscellaneous Information 1 each 07/03/24 16:33 Potassium Replacement Protocol 1 Each Misc MISCELLANE DAILY PRN Per Protocol Miscellaneous Information 1 each 07/03/24 16:33 Magnesium Replacement Protocol 1 Each Misc MISCELLANE DAILY PRN Per Protocol Protocol Naloxone HCl 0.2 mg 07/03/24 16:33 Naloxone 0.4 Mg/Ml 1 Ml Vial IV Q2M PRN Opioid Reversal Nitroglycerin 0.4 mg 07/05/24 08:10 Nitroglycerin Sl Tabs 0.4 Mg Tab SUBLINGUAL Q5M PRN Chest Pain Sacubitril/Valsartan 1 each 07/06/24 09:00 07/07/24 09:38 Sacubitril/Valsartan 49 Mg-51 Mg Tablet PO 1 each BID RAUL Administration Spironolactone 12.5 mg 07/05/24 13:00 07/07/24 09:37 Spironolactone 25 Mg Tab PO 12.5 mg DAILY RAUL Administration Ticagrelor 90 mg 07/03/24 21:00 07/07/24 09:37 Ticagrelor 90 Mg Tab PO 90 mg BID RAUL Administration Protocol Trazodone HCl 200 mg 07/03/24 21:00 07/06/24 21:23 Trazodone Hcl 100 Mg Tab PO 200 mg HS RAUL Administration Zolpidem Tartrate 5 mg 07/05/24 08:10 Zolpidem 5 Mg Tab PO HS PRN Insomnia Objective - Vital Signs Vital signs: Vital Signs Temp 97.7 F 07/07/24 08:00 Pulse 69 07/07/24 08:00 Resp 16 07/07/24 08:00 BP 174/82 07/07/24 08:00 Pulse Ox 100 07/07/24 08:25 FiO2 Intake & Output 07/06/24 07/07/24 07/07/24 18:59 06:59 18:59 Intake Total 1440 900 Balance 1440 900 Weight 89.8 kg Intake: Intake, IV Titration 900 Amount Sodium Chloride 0.9% 1, 900 000 ml @ 75 mls/hr IV . [id number] RAUL Rx#:[id number] Oral 1440 Other: Voiding Method Bedside Commode Bedside Commode Bedside Commode # Voids 2 3 # Bowel Movements 2 2 - Exam GENERAL: The patient is alert and oriented x3, not in any acute distress. Well developed, well nourished. HEENT: Pupils are round and equally reacting to light. EOMI. No scleral icterus. No conjunctival pallor. Normocephalic, atraumatic. No pharyngeal erythema. No t hyromegaly. CARDIOVASCULAR: S1 and S2 present. No murmurs, rubs, or gallops. PULMONARY: Chest is clear to auscultation, no wheezing , no crackles. ABDOMEN: Soft, nontender, nondistended, normoactive bowel sounds. No palpable organomegaly. MUSCULOSKELETAL: No joint swelling or deformity. EXTREMITIES: No cyanosis, clubbing, or pedal edema. NEUROLOGICAL: Gross neurological examination did not reveal any focal deficits. SKIN: No rashes. no petechiae. - Labs CBC & Chem 7: 07/07/24 02:53 07/07/24 02:49 Labs: Abnormal Lab Results - Last 24 Hours (Table) 07/06/24 07/06/24 07/06/24 Range/Units 11:45 16:49 20:43 RBC (3.80-5.40) m/uL Sodium (137-145) mmol/L Chloride (98-107) mmol/L Carbon Dioxide (22-30) mmol/L Glucose (74-99) mg/dL POC Glucose (mg/dL) 175 H 141 H 164 H (70-110) mg/dL 07/07/24 07/07/24 07/07/24 Range/Units 02:49 02:53 06:13 RBC 3.67 L (3.80-5.40) m/uL Sodium 136 L (137-145) mmol/L Chloride 109 H (98-107) mmol/L Carbon Dioxide 20 L (22-30) mmol/L Glucose 121 H (74-99) mg/dL POC Glucose (mg/dL) 145 H (70-110) mg/dL Assessment and Plan Assessment: Acute anterior STEMI status post PCI to LAD on 07/03, s/p stent placement to RCA on 07/05 chronic neuropathy and balance problem due to neuropathy right flank pain with vomiting Left kidney lesion Abdominal pain and diarrhea. Rule out C. difficile. Rule out colitis Hypertension Hyperlipidemia Obesity Nicotine dependence History of alcohol use disorder Patient reports her history of kidney lesion that she is scheduled CAT scan as an outpatient with her PCP Dr. Ellis Plan: Continue with normal saline 75 mL/h Obtain CAT scan with the IV and oral contrast of the abdomen and pelvis. Give IV steroids and IV Benadryl and Pepcid for preparation Cardiology team has already cleared the patient for discharge after switching metoprolol to Coreg Continue with dual antiplatelet therapy with aspirin and Brilinta Cardiology team are planning to do another cardiac cath and stent placement to RCA Continue with Coreg and high-dose Lipitor renal ultrasound is reviewed Consult urology service Labs and medication were reviewed.. Continue same treatment. Continue with symptomatic treatment. Resume home medication. Monitor labs and vitals. DVT and GI prophylaxis. Further recommendations as per clinical course of the patient DVT prophylaxis: Subcutaneous heparin GI Prophylaxis: Pepcid PT/OT: Pending Prognosis is guarded
[2024-07-07 11:50] LABS: Glucose,Whole Blood 160 mg/dL (70-110)
[2024-07-07] MEDS: BARIUM SULFATE 2% - 450 ML ORAL.SUSP BOTTLE PO ONE ×2 (12:30→15:27)
[2024-07-07 14:35] VITALS: BMI 31.9
[2024-07-07] MEDS: diphenhydrAMINE 50 MG/ML 1 ML VIAL IVP STA ×2 (16:14→17:11)
[2024-07-07] MEDS: methylPREDNISolone SOD SUCCI 125 MG/2 ML VIAL IV STA (16:14)
[2024-07-07] MEDS: FAMOTIDINE 20 MG/2 ML VIAL IV STA (16:15)
[2024-07-07 16:56] LABS: Glucose,Whole Blood 121 mg/dL (70-110)
--- NOTE | 2024-07-07 17:03 | CT ---
EXAMINATION TYPE: CT abdomen pelvis w con DATE OF EXAM: 07/07/2024 4:52 PM COMPARISON: 07/06/2024 05/22/2023 CLINICAL INDICATION: Female, 63 years old with history of pain and diarrhea , kid lesion; DIARRHEA/AB D PAIN TECHNIQUE: Axial CT abdomen pelvis w con;Sagittal and coronal reformats were created on a separate w orkstation. Contrast used:100ML mL of Isovue 300 with IV Contrast, (none if empty) Oral contrast used: with Oral Contrast (none if empty) CT DLP: 1191 mGycm, Automated exposure control for dose reduction was used. FINDINGS: LOWER CHEST: Unremarkable ABDOMEN LIVER: Nodular contour to the liver. GALLBLADDER AND BILE DUCTS: The gallbladder is surgically absent. PANCREAS: Unremarkable. SPLEEN: Unremarkable. ADRENAL GLANDS: Unremarkable. KIDNEYS AND URETERS: Right renal pelvis high density calcification measuring up to 13 mm. No evidence for hydronephrosis. No left hydronephrosis. Slightly atrophic right kidney. Left calyceal diverticul um with calcification versus nonobstructing small linear calculus. PELVIS BLADDER: No evidence for wall thickening or mass given limitations of exam. REPRODUCTIVE: Multiple calcifications near the left ovary. ABDOMEN & PELVIS STOMACH AND BOWEL: No evidence of bowel obstruction. Appendix is normal. Oral contrast extends to the rectum. PERITONEUM/RETROPERITONEUM: No evidence of pneumoperitoneum. Trace free fluid throughout the pelvis m ost pronounced superior aspect of the liver VASCULATURE: No evidence of aortic aneurysm. MUSCULOSKELETAL: No acute osseous abnormalities LYMPH NODES: No gross evidence for lymphadenopathy. SOFT TISSUE/ABDOMINAL WALL: Postsurgical changes anterior abdominal wall. IMPRESSION: 1. No evidence for acute abdominal process. Oral contrast extends to the rectum. 2. Right renal pelvis calcifications with atrophic right kidney, no evidence for hydronephrosis. Fin dings suggest chronic partially obstructing calculus. 3. Left renal dilated calyx with ossification versus renal cyst with peripheral calcification. 4. Nodular contour to liver with trace free fluid correlate for hepatic cirrhosis. 5. Postsurgical changes anterior abdominal wall. No evidence for hernia. 6. Multiple benign-appearing calcifications are seen around the left ovary. [facility], , 07/07/2024 5:01 PM
[2024-07-07] MEDS: carvediloL 6.25 MG TAB PO SCH (18:12)
[2024-07-07 20:31] LABS: Glucose,Whole Blood 229 mg/dL (70-110)
[2024-07-07] MEDS: FAMOTIDINE 20 MG TAB PO SCH (21:24)
[2024-07-08 06:12] LABS: Glucose,Whole Blood 193 mg/dL (70-110)
[2024-07-08 08:26] LABS: African American GFR (CKD) 67 (>60 ml/min/1.73 sqM); Anion Gap 9 mmol/L; Blood Urea Nitrogen 17 mg/dL (7-17); Calcium 9.5 mg/dL (8.4-10.2); Carbon Dioxide 20 mmol/L (22-30); Chloride 108 mmol/L (98-107); Glucose 149 mg/dL (74-99); Non-African American GFR(CKD) 58 (>60 ml/min/1.73 sqM); Sodium 137 mmol/L (137-145)
[2024-07-08 11:32] LABS: Glucose,Whole Blood 160 mg/dL (70-110)
[2024-07-08 15:27] VITALS: BP 125/71; PULSE 76; RESP 16; TEMP 97.6
--- NOTE | 2024-07-08 17:44 | P.GSCN ---
History of Present Illness Consult date: 07/08/24 Reason for Consult: Left renal mass, right renal stones History of present illness: This is a 63-year-old female admitted to the hospital with STEMI, she status post cardiac catheterization and stent placement by Dr. Taylor. Urology is consulted for incidental finding of a left renal lesion that measured 1.2 cm, and multiple right-sided renal stones with no evidence of hydronephrosis, but there is evidence of slight atrophy of the kidney. She denies any gross hematuria or dysuria, is having mild right flank pain. No previous history of kidney stones or recurrent UTIs. Of note the 1.2 cm left renal lesion was present on a CT back in 2020 and has not changed in features or size. Review of Systems - Constitutional Denies fever, Denies weight loss - EENT Ears, nose, mouth and throat: Denies dysphagia - Cardiovascular Denies chest pain, Denies shortness of breath - Respiratory Denies cough, Denies 7 - Gastrointestinal Reports as per HPI - Genitourinary Genitourinary: Reports flank pain, Denies dysuria, Denies hematuria Past Medical History Past Medical History: Cancer, Heart Failure, CVA/TIA, Diabetes Mellitus, Hypertension, Myocardial Infarction ([place]), Musculoskeletal Disorder, Neurologic Disorder, Seizure Disorder Additional Past Medical History / Comment(s): Neuropathy of lower extremities and hands, bilateral carpal tunnel, hx CVA in 2002, affected right eye vision, now resolved, still has numbness in right hand, hx TIA's and seizures due to al coholism, none in yrs, hx of a concussion from a fall in 2010, balance issues from Neuropathy, 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 Last Myocardial Infarction Date:: 2014 per EKG History of Any Multi-Drug Resistant Organisms: VRE Year Discovered:: 07/01/23 MDRO Source:: Urine-VRE Past Surgical History: Section, Cholecystectomy, Hernia Repair, Orthopedic Surgery, Tonsillectomy Additional Past Surgical History / Comment(s): Ventral hernia repair X4, Section X2, debridements of right foot and abdomen, colonoscopy, laparoscopy, seromas drained X7, ganglion cysts removed, left squamous cell cancer removed, cataracts removed, EGD. Past Anesthesia/Blood Transfusion Reactions: Motion Sickness Additional Past Anesthesia/Blood Transfusion Reaction / Comm: takes meclazine now Past Psychological History: Anxiety, Depression Smoking Status: Current every day smoker - Past Family History Mother Family Medical History: Cancer Additional Family Medical History / Comment(s): breast cancer Brother(s) Additional Family Medical History / Comment(s): Patient has 1 brother that from a motor vehicle accident involving alcohol. Patient has no sisters. Patient has 1 son 21 years old and one daughter 23 years old and she has no contact with her children. Medications and Allergies Home Medications Medication Instructions Recorded Confirmed Type DULoxetine HCL [Cymbalta] 60 mg PO HS 08/07/21 07/03/24 History traZODone HCL 200 mg PO HS 05/22/23 07/03/24 History HYDROcodone/APAP 7.5-325MG [[place] 1 tab PO BID@11/05/23 07/03/24 History 7.5-325] DULoxetine HCL [Cymbalta] 30 mg PO DAILY 07/03/24 07/03/24 History diphenhydrAMINE [Benadryl] 25 mg PO HS 07/03/24 07/03/24 History Aspirin 81 mg PO DAILY #30 tab 07/05/24 Rx Atorvastatin [Lipitor] 80 mg PO HS #30 tab 07/05/24 Rx Ticagrelor [Brilinta] 90 mg PO BID #60 tab 07/05/24 Rx Dapagliflozin Propanediol [Farxiga] 10 mg PO DAILY #30 tab 07/08/24 Rx Famotidine [Pepcid] 20 mg PO BID #60 tab 07/08/24 Rx Nitroglycerin Sl Tabs [Nitrostat] 0.4 mg SUBLINGUAL Q5M PRN #10 tab 07/08/24 Rx Sacubitril/Valsartan [Entresto 49 1 each PO BID #60 tab 07/08/24 Rx mg-51 mg Tablet] Spironolactone [Aldactone] 12.5 mg PO DAILY 30 Days #15 tab 07/08/24 Rx amLODIPine [Norvasc] 10 mg PO DAILY #30 tab 07/08/24 Rx carvediloL [Coreg] 6.25 mg PO BID-W/MEALS #60 tab 07/08/24 Rx Allergies Allergy/AdvReac Type Severity Reaction Status Date / Time azithromycin [From Zithromax] Allergy "had very Verified 07/03/24 16:40 bad thrush" shellfish derived [Shellfish] Allergy Swelling, Verified 07/03/24 16:40 NAUSEA Iodinated Contrast Media AdvReac Anaphylaxis- Verified 07/03/24 16:40 [Iodinated Contrast Media - Lungs IV Dye] filled up with fluid pregabalin [From Lyrica] AdvReac Nausea & Verified 07/03/24 16:40 Vomiting, dizziness Surgical - Exam Vital Signs Temp Pulse Resp BP Pulse Ox 98.3 F 82 18 119/102 99 07/03/24 16:12 07/03/24 16:12 07/03/24 16:12 07/03/24 16:12 07/03/24 16:12 - General no distress, no pain - Eyes normal ocular movement, no pale - ENT normal nares, normal mucosa - Respiratory normal expansion, normal respiratory effort - Abdomen Abdomen: soft, tender (Right flank), no distended - Psychiatric oriented to time, oriented to person, oriented to place Results - Labs 07/07/24 02:53 07/08/24 07:55 Abnormal Lab Results - Last 24 Hours (Table) 07/07/24 07/08/24 07/08/24 Range/Units 20:29 06:10 07:55 Chloride 108 H (98-107) mmol/L Carbon Dioxide 20 L (22-30) mmol/L Glucose 149 H (74-99) mg/dL POC Glucose (mg/dL) 229 H 193 H (70-110) mg/dL 07/08/24 Range/Units 11:30 Chloride (98-107) mmol/L Carbon Dioxide (22-30) mmol/L Glucose (74-99) mg/dL POC Glucose (mg/dL) 160 H (70-110) mg/dL Diabetes panel 07/08/24 Range/Units 07:55 Sodium 137 (137-145) mmol/L Potassium 4.0 (3.5-5.1) mmol/L Chloride 108 H (98-107) mmol/L Carbon Dioxide 20 L (22-30) mmol/L BUN 17 (7-17) mg/dL Creatinine 1.03 (0.52-1.04) mg/dL Glucose 149 H (74-99) mg/dL Calcium 9.5 (8.4-10.2) mg/dL Calcium panel 07/08/24 Range/Units 07:55 Calcium 9.5 (8.4-10.2) mg/dL Pituitary panel 07/08/24 Range/Units 07:55 Sodium 137 (137-145) mmol/L Potassium 4.0 (3.5-5.1) mmol/L Chloride 108 H (98-107) mmol/L Carbon Dioxide 20 L (22-30) mmol/L BUN 17 (7-17) mg/dL Creatinine 1.03 (0.52-1.04) mg/dL Glucose 149 H (74-99) mg/dL Calcium 9.5 (8.4-10.2) mg/dL Adrenal panel 07/08/24 Range/Units 07:55 Sodium 137 (137-145) mmol/L Potassium 4.0 (3.5-5.1) mmol/L Chloride 108 H (98-107) mmol/L Carbon Dioxide 20 L (22-30) mmol/L BUN 17 (7-17) mg/dL Creatinine 1.03 (0.52-1.04) mg/dL Glucose 149 H (74-99) mg/dL Calcium 9.5 (8.4-10.2) mg/dL Assessment and Plan Assessment: 63-year-old female with a recent [place]. Urologist consulted for left-sided renal lesion and right-sided renal stone. The left-sided renal has been stable in size no further evaluation is needed. As for her right-sided renal stone there is no evidence of hydronephrosis but there is slight atrophy of the kidney, in addition it is located within the renal pelvis. Discussed with her she will eventually require intervention for those stones, but given the recent [place] we will hold off on any intervention at this time Follow-up as an outpatient in 4 to 6 weeks. If she is cleared from cardiology standpoint then we can proceed with right-sided ureteroscopy and holmium laser. I did discuss with her this can be done while she is on Plavix
== END 2024-07-08 15:35 | disposition home health service (06) | DRG 322 ==
LOC: EC 16:11 → 2SICU 16:33 → 3SCARD 07-04 14:16
PROVIDERS: ADMIT Hospitalist; ATTEND Hospitalist
PROC: 4A023N7 Measurement of Cardiac Sampling and Pressure, Left Heart, Percutaneous Approach (ICD-10-PCS; 2024-07-03 16:47)
PROC: B2111ZZ Fluoroscopy of Multiple Coronary Arteries using Low Osmolar Contrast (ICD-10-PCS; 2024-07-03 16:47)
PROC: B240ZZ3 Ultrasonography of Single Coronary Artery, Intravascular (ICD-10-PCS; 2024-07-05)
PROC: 027034Z Dilation of Coronary Artery, One Artery with Drug-eluting Intraluminal Device, Percutaneous Approach (ICD-10-PCS; principal; 2024-07-05 07:30)
DX: I21.09 ST elevation (STEMI) myocardial infarction involving other coronary artery of anterior wall (principal); R19.7 Diarrhea, unspecified; I25.10 Atherosclerotic heart disease of native coronary artery without angina pectoris; I11.0 Hypertensive heart disease with heart failure; E11.42 Type 2 diabetes mellitus with diabetic polyneuropathy; E78.5 Hyperlipidemia, unspecified; E66.01 Morbid (severe) obesity due to excess calories; Z68.31 Body mass index [BMI] 31.0-31.9, adult; Z88.1 Allergy status to other antibiotic agents; Z91.013 Allergy to seafood; Z91.041 Radiographic dye allergy status; Z88.8 Allergy status to other drugs, medicaments and biological substances; Z87.19 Personal history of other diseases of the digestive system; Z90.49 Acquired absence of other specified parts of digestive tract; Z98.42 Cataract extraction status, left eye; Z98.41 Cataract extraction status, right eye
CPT/HCPCS: 36415; 71045; 74177; 76770; 80048; 80053; 80061; 80320; 82565; 83036; 83690; 83735; 83880; 84443; 84484; 85025; 85610; 85730; 92978; 93005; 93306; 93458; 96374; 99291

== ENCOUNTER → 2025-01-30 | Outpatient (CLI) | payer MEDICARE ==
[2025-01-30 20:13] LABS: Anion Gap 16.50 mmol/L (4.00-12.00); BUN/Creat Ratio 12.30 Ratio (12.00-20.00); Blood Urea Nitrogen 12.3 mg/dL (9.0-27.0); Calcium 9.6 mg/dL (8.7-10.3); Carbon Dioxide 20.5 mmol/L (21.6-31.8); Chloride 103 mmol/L (96-109); Glucose 146 mg/dL (70-110); Potassium 3.9 mmol/L (3.5-5.5); Sodium 140 mmol/L (135-145)
[2025-01-31 02:16] LABS: Basophils # (A) 0.04 X 10*3/uL (0.00-0.10); Basophils % (A) 0.7 %; Eosinophils # (A) 0.07 X 10*3/uL (0.04-0.35); Eosinophils % (A) 1.2 %; HCT 42.9 % (37.2-46.3); HGB 14.6 g/dL (12.0-15.0); Immature Grans, Automated 0.20 %; Lymphocytes # (A) 1.88 X 10*3/uL (0.90-5.00); Lymphocytes % (A) 31.6 %; MCH 33.6 pg (27.0-32.0); MCHC 34.0 g/dL (32.0-37.0); MCV 98.6 FL (80.0-97.0); Monocytes # (A) 0.33 X 10*3/uL (0.20-1.00); Monocytes % (A) 5.6 %; NRBC Per 100 WBC 0 X 10*3/uL (0.00-0.01); Neutrophils # (A) 3.61 X 10*3/uL (1.80-7.70); Neutrophils % (A) 60.7 %; Platelet Count 171 X 10*3/uL (140-440); RBC 4.35 X 10*6/uL (4.10-5.20); RDW 13.2 % (11.5-14.5); WBC 5.94 X 10*3/uL (4.50-10.00)
== END | disposition home or self-care (01) ==
LOC: LABPAT 14:14
PROVIDERS: ATTEND Urology
DX: Z01.812 Encounter for preprocedural laboratory examination (principal); N20.0 Calculus of kidney
CPT/HCPCS: 80048; 85025

== ENCOUNTER 2025-02-07 09:06 | Day surgery (SDC) | payer MEDICARE ==
--- NOTE | 2025-02-07 09:26 | XR ---
EXAMINATION TYPE: XR KUB DATE OF EXAM: 02/07/2025 COMPARISON: CT abdomen pelvis 07/07/2024 HISTORY: N20.0 CALCULUS OF KIDNEY TECHNIQUE: Single supine KUB image of the abdomen is obtained FINDINGS: Small bowel demonstrates no evidence for dilatation or air fluid levels. Gas and fecal material is seen in non-distended colon. No convincing evidence for pneumoperitoneum. Postsurgical changes from hernia repair with mesh anchors. Pelvic phleboliths redemonstrated. No distinct left renal calculus. Approximately 3 right renal calcu li identified with largest measurement of 5 mm. The lung bases are clear. The osseous structures are intact. Mild dextrocurvature of the lumbar spine. IMPRESSION: 1. Overall nonobstructive bowel gas pattern. 2. Right renal calculi. [facility], , 02/07/2025 9:24 AM
--- NOTE | 2025-02-07 09:39 | P.HPIHPCON ---
History of Present Illness H&P Date: 02/07/25 Chief Complaint: Right renal stone This is a 64-year-old female with history of a 1.3 cm right-sided renal pelvic stone. She is symptomatic from her stone. Surgical options to remove her stone were discussed, she agreed to proceed with right-sided ureteroscopy with holmium laser. She is aware of the risk which include but not limited to bleeding, infection, injury to the ureter Consent for Procedure: I have explained the operation/procedure to the patient, including the risks, benefits, side effects, alternative therapies (including not receiving the proposed treatment or service), the likelihood of the patient achieving his/her goals, and potential recuperation problems for the procedure/sedation/analgesia, as well as any blood products, if indicated. I also explained to the patient the risks, benefits and side effects of the alternatives, as well as the risks related to not receiving the proposed procedure, care, treatment, or services. 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 Last Myocardial Infarction Date:: 2014 per EKG History of Any Multi-Drug Resistant Organisms: VRE Date of last positivie culture/infection: 07/01/23 MDRO Source:: Urine-VRE Past Surgical History: Section, Cholecystectomy, Hernia Repair, Orthopedic Surgery, Tonsillectomy Additional Past Surgical History / Comment(s): Ventral hernia repair X4, Section X2, debridements of right foot and abdomen, colonoscopy, laparoscopy, seromas drained X7, ganglion cysts removed, left squamous cell cancer removed, cataracts removed, EGD. Past Anesthesia/Blood Transfusion Reactions: Motion Sickness Additional Past Anesthesia/Blood Transfusion Reaction / Comment(s): takes meclazine now Smoking Status: Current every day smoker - Past Family History Mother Family Medical History: Cancer Additional Family Medical History / Comment(s): breast cancer Brother(s) Additional Family Medical History / Comment(s): Patient has 1 brother that from a motor vehicle accident involving alcohol. Patient has no sisters. Patient has 1 son 21 years old and one daughter 23 years old and she has no contact with her children. Medications and Allergies Home Medications Medication Instructions Recorded Confirmed Type DULoxetine HCL [Cymbalta] 60 mg PO HS 08/07/21 02/06/25 History traZODone HCL 100 mg PO HS 05/22/23 02/06/25 History HYDROcodone/APAP 7.5-325MG [[place] 1 tab PO TID 11/05/23 02/06/25 History 7.5-325] DULoxetine HCL [Cymbalta] 30 mg PO DAILY 07/03/24 02/06/25 History diphenhydrAMINE [Benadryl] 50 mg PO HS 07/03/24 02/06/25 History Aspirin 81 mg PO DAILY #30 tab 07/05/24 02/06/25 Rx Dapagliflozin Propanediol [Farxiga] 10 mg PO DAILY #30 tab 07/08/24 02/06/25 Rx Sacubitril/Valsartan [Entresto 49 1 each PO BID #60 tab 07/08/24 02/06/25 Rx mg-51 mg Tablet] Spironolactone [Aldactone] 12.5 mg PO DAILY 30 Days #15 tab 07/08/24 02/06/25 Rx amLODIPine [Norvasc] 10 mg PO DAILY #30 tab 07/08/24 02/06/25 Rx carvediloL [Coreg] 6.25 mg PO BID-W/MEALS #60 tab 07/08/24 02/06/25 Rx Atorvastatin [Lipitor] 80 mg PO DAILY 02/06/25 02/06/25 History Plavix 1 tab PO DAILY 02/06/25 02/06/25 History Allergies Allergy/AdvReac Type Severity Reaction Status Date / Time azithromycin [From Zithromax] Allergy "had very Verified 02/06/25 15:03 bad thrush" shellfish derived [Shellfish] Allergy Swelling, Verified 02/06/25 15:03 NAUSEA Iodinated Contrast Media AdvReac Anaphylaxis- Verified 02/06/25 15:03 [Iodinated Contrast Media - Lungs IV Dye] filled up with fluid pregabalin [From Lyrica] AdvReac Nausea & Verified 02/06/25 15:03 Vomiting, dizziness Surgical - Exam - General no distress, no pain - Eyes normal ocular movement, no pale - ENT normal nares, normal mucosa - Respiratory normal expansion, normal respiratory effort - Abdomen Abdomen: soft, non tender, no distended - Psychiatric oriented to time, oriented to person, oriented to place Assessment and Plan Assessment: OR for right-sided ureteroscopy, holmium laser lithotripsy, stone basketing and stent insertion
[2025-02-07] MEDS ORDERED: SCOPOLAMINE 1 MG/72 HR PATCH TRANSDERM ONE (10:13)
[2025-02-07] MEDS ORDERED: HYDROmorphone 0.5 MG/0.5 ML SYRINGE IVP PRN (10:13)
[2025-02-07] MEDS ORDERED: MIDAZOLAM 2 MG/2 ML VIAL IV PRN (10:13)
[2025-02-07] MEDS: IV FLUID CONTINUATION 1,000 ML IV ONE (10:37)
[2025-02-07] MEDS: LACTATED RINGERS 1,000 ML IV SCH (10:38)
[2025-02-07] MEDS: DEXAMETHASONE SOD PHOSPHATE 4 MG/ML 1 ML VIAL IV ONE (10:38)
[2025-02-07] MEDS: ONDANSETRON 4 MG/2 ML VIAL IVP ONE (10:43)
[2025-02-07] MEDS ORDERED: ROCURONIUM 10 MG/ML (5 ML VIAL) IV ONE (10:44)
[2025-02-07] MEDS ORDERED: fentaNYL (PF) 50 MCG/ML 2 ML AMP ONE (10:44)
[2025-02-07] MEDS ORDERED: SUCCINYLCHOLINE CHLORIDE 200 MG/10 ML VIAL IV ONE (10:44)
[2025-02-07] MEDS ORDERED: LIDOCAINE 1% INJ 10MG/ML (20 ML MDV) ONE (10:44)
[2025-02-07] MEDS ORDERED: PROPOFOL 10 MG/ML 20 ML VIAL IV ONE (10:44)
[2025-02-07] MEDS ORDERED: GLYCOPYRROLATE 0.2 MG/ML 2 ML VIAL ONE (10:44)
[2025-02-07] MEDS ORDERED: MIDAZOLAM 2 MG/2 ML VIAL ONE (10:44)
[2025-02-07] MEDS ORDERED: NEOSTIGMINE 1 MG/ML 10 ML VIAL ONE (10:44)
[2025-02-07] MEDS ORDERED: ePHEDrine 50 MG/ML 1 ML VIAL ONE (10:44)
[2025-02-07 10:47] LABS: Glucose,Whole Blood 155 mg/dL (70-110)
[2025-02-07] MEDS: LACTATED RINGERS 1,000 ML IV ONE (11:41)
--- NOTE | 2025-02-07 11:51 | FL ---
EXAMINATION TYPE: FL guidance operating room Intraoperative/procedural fluoroscopic services were pro vided. CLINICAL INDICATION:Female, 64 years old with history of RENAL STONE; , [facility] FINDINGS: Single fluoroscopic image for right renal stone removal in OR. No radiographic evidence for complicat ion. Total fluoroscopy time is 6.0 seconds. DAP: [id number] Please see the operative/procedural note for further details. [facility], , 02/07/2025 11:49 AM
[2025-02-07 11:55] LABS: Glucose,Whole Blood 132 mg/dL (70-110)
[2025-02-07 12:01] VITALS: TEMP 97.4
--- NOTE | 2025-02-07 12:04 | P.OP ---
Date of Procedure: 02/07/25 Preoperative Diagnosis: Right renal stone Postoperative Diagnosis: Same Procedure(s) Performed: Cystoscopy, right ureteroscopy, holmium laser lithotripsy, stone basketing and stent insertion Implants: 6 British by 24 cm stent in the right ureter Anesthesia: CHIQUITA Surgeon: Ethan Lam Estimated Blood Loss (ml): 5 Pathology: other (Right renal stone) Condition: stable Disposition: PACU Indications for Procedure: This is a 64-year-old female with history of a 1.3 cm right-sided renal pelvic stone. She is symptomatic from her stone. Surgical options to remove her stone were discussed, she agreed to proceed with right-sided ureteroscopy with holmium laser. She is aware of the risk which include but not limited to bleeding, infection, injury to the ureter Operative Findings: 3 large stones in the renal pelvis, stones were fairly soft Description of Procedure: Patient brought the operating room, general anesthesia was induced. He was prepped and draped in sterile fashion placed in dorsolithotomy position. Cystoscopy fitted through the 21 British sheath was inserted per Urethra, cystoscopy was performed which showed no abnormality within the bladder. Attention was then carried to the right ureteral orifice which was intubated with a sensor wire, the wire was advanced under fluoroscopy into the kidney. Next an 1113 British access sheath was passed over the wire and into the proxima l ureter. The flexible ureteroscope was inserted through the access sheath, renoscopy was performed showed 3 large stones in the renal pelvis. Using the holmium laser the stones were fragmented, of note the stones were fairly soft, stone fragments were removed using the stone basket. Repeat renoscopy showed no sizable fragments or injury to the kidney. On fluoroscopy there is no radiopaque density seen. Pullback ureteroscopy was performed showed no injury to the ureter or any ureteral stones, as the ureteroscope was withdrawn a sensor wire was advanced through. Next a ureteral stent was passed over the wire, the proximal curl was visualized on fluoroscopy and the distal curl was visualized using the cystoscope. The bladder was emptied at the end of the case. Patient tolerated procedure well was taken to recovery in stable condition
[2025-02-07 16:29] VITALS: RESP 14
[2025-02-07 16:55] VITALS: BP 138/81; PULSE 78
== END 2025-02-07 18:18 | disposition home or self-care (01) ==
LOC: OR 09:06
PROVIDERS: ATTEND Urology
DX: N20.0 Calculus of kidney (principal); E11.40 Type 2 diabetes mellitus with diabetic neuropathy, unspecified; E78.5 Hyperlipidemia, unspecified; G40.909 Epilepsy, unspecified, not intractable, without status epilepticus; I11.0 Hypertensive heart disease with heart failure; I50.9 Heart failure, unspecified; I25.2 Old myocardial infarction; F17.200 Nicotine dependence, unspecified, uncomplicated; Z79.02 Long term (current) use of antithrombotics/antiplatelets; Z79.84 Long term (current) use of oral hypoglycemic drugs; Z86.73 Personal history of transient ischemic attack (TIA), and cerebral infarction without residual deficits; Z88.1 Allergy status to other antibiotic agents; Z90.49 Acquired absence of other specified parts of digestive tract; Z91.041 Radiographic dye allergy status; Z79.82 Long term (current) use of aspirin
CPT/HCPCS: 52356; 82365; 74018; C2625; C1769; J2250; J0330; J1100; J2710; J0690; J2405; J2003; J3010; J2704; J1596